=== PATIENT | male | born 1970 | race Caucasian/White ===

== ENCOUNTER 2022-09-28 10:49 | Inpatient (IN) | payer BC ==
--- OUTSIDE RECORDS SUMMARY | 2022-09-28 11:06 | XMS REPORT | Continuity of Care Document ---
:1970 Author Organization [facility] t Address [address] [place] [address] Care Team Providers Name Role Phone SHARPLESS Primary Care Physician Unavailable ETTA NAVARRETE Attending Clinician Unavailable ETTA NAAVRRETE Attending Clinician Unavailable Jaydon PEÑA, Pita Silveira Attending Clinician Sujatha Lane MA Attending Clinician Unavailable Ab Pierre MA Attending Clinician Unavailable Rosie Castro MD Attending Clinician Monika Hairston MD Attending Clinician ROSIE CASTRO Attending Clinician Unavailable MONIKA HAIRSTON Attending Clinician Unavailable Valerie Caballero MD' Attending Clinician [phone] ETTA NAVARRETE Admitting Clinician Unavailable ROSIE CASTRO Admitting Clinician Unavailable Payers Payer Name Policy Type Policy Number Effective Date Expiration Date S [facility] [id number] 2014 00:00:00 PRETP OUT OF STATE [facility] [id number] - PPO - BCBS GENERIC-FIRST [id number] HEALTH - FIRST HEALTH Problems Condition Condition Condition Status Onset Resolution Last Treating Co mments Source Name Details Category Date Date Treatment Clinician Date Angina Angina Disease Active 2021-10 [facility] p[facility] [address] 00:00: Hospita 00 l Ischemic Ischemic Disease Active Metho di cardiomyop cardiomyop 9-13 st athy athy 00:00: Hospita 00 l CAD in CAD in Disease Active [facility] [place] 6-14 st artery artery 00:00: Hospita 00 l History of History of Disease Active M ethodi coronary coronary 6-14 st artery artery 00:00: Hospita stent stent 00 l placement placement Pure Pure Disease Active Methodi hyperchole hyperchole 6-[address] sterolemia sterolemia 00:00: Ho spita 00 l H/O H/O Disease Active Methodi myocardial myocardial 6-14 st infarction infarction 00:00: Ho spita of of 00 l inferior inferior wall, wall, greater greater than 8 than 8 weeks weeks Hypokalemi Hypokalemi Disease Active [facility] Center Elevated Elevated Disease Active [facility] trop[facility] Medical 00 [place] Hypomagnes Hypomagnes Disease Active C [facility] emia emia 4-13 [facility] 00:[facility]: Medical 00 [place] Leucocytos Leucocytos Disease Active [facility] is is 4-13 [facility] 00:[facility]: Medical 00 Center Elevated Elevated Disease Active [facility] procalcito procalcito 4-13 Mar[facility] kes ric ric 00:00: Medical 00 [place] 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 age-relate age-relate 00:00: Me dical d cataract d cataract 00 Ce nter of left of left eye eye Chronic Chronic Disease Active Overview: [facility] angle-clos angle-clos 7-[address] [facility] ure ure 00:00: g of this Medical glaucoma glaucoma 00 note Center might be different from the original. 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 s diabetes diabetes Medica l mellitus mellitus Center with with hyperglyce hyperglyce abelardo abelardo Pain, Pain, Diagnosis Active Common joint, joint, Spirit shoulder, shoulder, - CH I right right [facility] Subacromia Subacromia Diagnosis Active Common l bursitis l bursitis Sp lance of right of right - [facility] shoulder shoulder St joint joint [facility] Allergies, Adverse Reactions, Alerts Allergy Allergy Status Severity Reaction(s) Onset Inactive Treating Comm ents Source Name Type Date Date Clinician NO KNOWN Allergy Active [facility] ALLERGIE S Family History Family Member Diagnosis Comments Start Date Stop Date Source Natural father Heart attack [facility] Natural father Heart failure [facility] Social History Social Habit Start Date Stop Date Quantity Comments Source History of tobacco Cigar Smoker Meth odist use Hospital History [facility] Transport Non-Med Medical Center Alcohol intake 2022-07-11 2022-07-11 Ex-drinker Yarsani 00:00:00 00:00:00 (finding) Hospital Cigarettes smoked 2022-04-11 2022-04-11 [facility] current (pack per 00:00:00 00:00:00 Hosplds hospital l day) - Reported Cigarette 2022-04-11 2022-04-11 Yarsani pack-years 00:00:00 00:00:00 Hospital History [facility] 2022-02-08 2022-02-[address] [facility] Transport Med 00:00:00 00:00:[address] History [facility] 2022-02-08 2022-02-[address] [facility] Housing Unable to 00:00:00 00:00:00 Medical Center Pay History [facility] 2022-02-08 2022-02-[address] [facility] Housing Places 00:00:00 00:00:00 Medical Ce nter Lived History [facility] 2022-02-08 2022-02-[address] [facility] Housing Homeless 00:00:00 00:00:00 Medical Center Last Year Tobacco use and 2015-05-12 2015-05-[address] [facility] exposure 00:00:00 00:00:00 Medical Center Sex Assigned At [address] [facility] 00:00:00 00:00:00 Medical Center Smoking Status Start Date Stop Date Source Ex-smoker 2022-04-11 00:00:00 2022-04-11 00:00:00 [facility] Medications Ordered Filled Start Stop Current Ordering Indication Dosage Frequency Signature Comments Components Source Medication Medication Date Date Medication? Clinician (SIG) Name Name spironolact 2021-10- No 25mg QD Take 1 Met hodi one 11-26-29 tablet (25 st (ALDACTONE) 10:37: 00:00 mg total) Hospita 25 MG 05 :00 by mouth l tablet daily. sacubitril/ 2021-10 Yes Take by Met hodi valsartan 11-[address] (ENTRESTO 09:49: Hospita ORAL) 08 l pioglitazon 2021-10 Yes 15mg QD Take 1 Meth stewart e (ACTOS) 0-03 tablet (15 st 15 MG 00:00: mg total) Hospita tablet 00 by mouth l daily. niacin Yes 500mg QD Take 1 [facility]i (NIASPAN) 9-[address] 500 MG CR 00:00: (500 mg Hospi ta tablet 00 total) by l mouth nightly. brimonidine Yes INSTILL 1 M ethodi (ALPHAGAN) 9-[address] 0.2 % 00:00: EACH EYE Hospita ophthalmic 00 THREE l solution TIMES DAILY atorvastati Yes 40mg QD Take 40 mg Methodi n (LIPITOR) 6-[address] 40 mg 00:00: daily. Hospita tablet 00 l furosemide Yes 40mg QD Take 1 Metho di (LASIX) 40 - tablet (40 st mg tablet 00:00: mg total) Hos ernesto 00 by mouth l daily. lisinopriL 2021- No 5mg Take 1 Meth stewart (PRINIVIL) 04-04- tablet (5 st 5 mg tablet 00:00: 00:00 mg total) Hospita 00 :00 by mouth l as needed. Farxiga 10 2021- No 10mg QD Take 10 mg Methodi mg tablet 03-20 09-[address] 00:00: 00:00 daily. Hospita 00 :00 l clopidogreL 2022- No 75mg QD Take 75 mg Methodi (PLAVIX) 75 4-16 04-[address] mg tablet 00:00: 04:59 daily. Hospi ta 00 :00 l aspirin 81 2022- No 81mg QD Take [address] MG chewable 4-16 04-16 tablet (81 L ukes tablet 00:00: 23:59 mg total) Medic al 00 :00 by mouth Center daily. clopidogreL 2022- No 75mg QD Take [address] (PLAVIX) 75 4-16 04-16 tablet (75 L ukes mg tablet 00:00: 23:59 mg total) Me dical 00 :00 by mouth Center daily. brimonidine Yes 1[drp] Q.5D [address] -timoloL 4-15 (two) Lukes (COMBIGAN) 15:45: times Medica l 0.2-0.5 % 51 daily. Center ophthalmic solution metFORMIN 2021- No 500mg Take [address] (GLUCOPHAGE 4-15 04-15 mg by [facility]ukes ) 500 MG 14:21: 00:00 mouth 2 Medic al tablet 15 :00 (two) Center times daily with breakfast and dinner. ibuprofen 2021- No 200mg Take [address] (ADVIL,MOTR 4-15 04-15 mg by Lukes IN) 200 MG 14:19: 00:00 mouth Medic al tablet 10 :00 every 6 Center (six) hours as needed for Pain. carvediloL Yes 12.5mg Q.5D Take 1 Met hodi (COREG) 4-[address] 12.5 MG 00:00: (12.5 mg Hospit a tablet 00 total) by l mouth 2 (two) times a day with meals. metFORMIN 0 Yes 1000mg Take [address] (GLUCOPHAGE 4-15 tablet [facility]ukes ) 1000 MG 00:00: (1,000 mg Med ical tablet 00 total) by Center mouth 2 (two) times daily with breakfast and dinner. atorvastati 2022- No 40mg QD Take [address] n (LIPITOR) 4-15 04-15 tablet (40 L ukes 40 MG 00:00: 23:59 mg total) Medica l tablet 00 :00 by mouth Center nightly. carvediloL 2022- No 12.5mg Q.5D Take [address] (COREG) 4-15 04-15 tablet Lukes 12.5 MG 00:00: 23:59 (12.5 mg Medic al tablet 00 :00 total) by Center mouth 2 (two) times daily. furosemide 2022- No 40mg Take [address] (LASIX) 40 4-15 04-15 tablet (40 Marilu kes MG tablet 00:00: 23:59 mg total) Me dical 00 :00 by mouth 2 Center (two) times daily. glipiZIDE 2022- No 5mg Take 1 [facility]I S t (GLUCOTROL) 4-15 04-15 tablet (5 Marilu kes 5 MG tablet 00:00: 23:59 mg total) Medical 00 :00 by mouth 2 Center (two) times daily before meals. lisinopriL 2022- No 5mg QD Take [address] (PRINIVIL,Z 4-15 -15 tablet (5 Marilu kes ESTRIL) 5 00:00: 23:59 mg total) Me dical MG tablet 00 :00 by mouth Center daily. Ibuprofen Ibuprofen Yes Marty 1 tablet Common Rodriguez with food Spirit or milk as - CHI needed [facility] Vital Signs Vital Name Observation Time Observation Value Comments Source HEIGHT 2020-10-12 13:29:00 165.1 cm WEIGHT 2020-10-12 13:29:00 63.504 kg HEIGHT 2022-02-08 05:00:00 167.6 cm WEIGHT 2022-02-08 05:00:00 67.178 kg HEIGHT 2022-02-08 05:00:00 167.6 cm WEIGHT 2022-02-08 05:00:00 67.178 kg HEIGHT 2022-02-08 05:00:00 167.6 cm WEIGHT 2022-02-08 05:00:00 67.178 kg HEIGHT 2020-10-12 13:29:00 165.1 cm WEIGHT 2020-10-12 13:29:00 63.504 kg Systolic blood 2022-09-26 15:49:00 123 mm[Hg] Method ist Hospital pressure Diastolic blood 2022-09-26 15:49:00 75 mm[Hg] [facility] Hospital pressure Heart rate 2022-09-26 15:49:00 98 /min [facility] Body height 2022-09-26 15:49:00 165.1 cm [facility] Body weight 2022-09-26 15:49:00 70.308 kg [facility] BMI 2022-09-26 15:49:00 25.79 kg/m2 [facility] Systolic blood 2022-02-10 12:00:00 127 mm[Hg] [facility] Diastolic blood 2022-02-10 12:00:00 79 mm[Hg] [facility] Heart rate 2022-02-10 12:00:00 85 /min [facility] Body temperature 2022-02-10 12:00:00 36.39 Rachell [facility] Respiratory rate 2022-02-10 12:00:00 18 /min [facility] Oxygen saturation in 2022-02-10 12:00:00 96 /min [facility] Arterial blood by Medical Ce nter Pulse oximetry Body height 2022-02-08 05:00:00 167.6 cm [facility] Body weight 2022-02-08 05:00:00 67.178 kg [facility] BMI 2022-02-08 05:00:00 23.90 kg/m2 [facility] Procedures Procedure Date / Time Performing Clinician Source Performed TTE COMPLETE, WO 2022-09-15 15:58:37 Pita Interiano H ospital CONTRAST, W DOPPLER ([id number]) TTE COMPLETE, W 2022-04-21 15:29:52 Pita Interiano Ho spital CONTRAST, W DOPPLER ([id number]) ECG 12-LEAD 2022-04-11 14:47:29 Pita Interiano spital POCT-GLUCOSE METER 2022-02-10 11:18:00 [facility] POCT-GLUCOSE METER 2022-02-10 06:15:00 Yovanny [facility] BASIC METABOLIC PANEL 2022-02-10 04:30:00 Yovanny [facility] CBC W/PLT COUNT & AUTO 2022-02-10 04:30:00 [facility] MAGNESIUM 2022-02-10 04:30:00 [facility] CBC W/PLT COUNT & AUTO 2022-02-10 04:30:00 [facility] POCT-GLUCOSE METER 2022-02-10 00:23:00 [facility] POCT-GLUCOSE METER 2022-02-09 20:26:00 [facility] POCT-GLUCOSE METER 2022-02-09 16:29:00 [facility] CATHETERIZATION, HEART, 2022-02-09 11:47:00 Valerie Caballero [facility] [place] POCT-GLUCOSE METER 2022-02-09 06:55:00 [facility] TSH/FREE T4 IF INDICATED 2022-02-09 05:26:00 Rosie Castro ru [facility] BASIC METABOLIC PANEL 2022-02-09 05:26:00 [facility] CBC W/PLT COUNT & AUTO 2022-02-09 05:26:00 [facility] HEPATIC FUNCTION PANEL 2022-02-09 05:26:00 [facility] MAGNESIUM 2022-02-09 05:26:00 [facility] CBC W/PLT COUNT & AUTO 2022-02-09 05:26:00 [facility] POCT-GLUCOSE METER 2022-02-08 20:28:00 [facility] POCT-GLUCOSE METER 2022-02-08 16:23:00 [facility] TROPONIN I 2022-02-08 13:06:00 Rosie Castroircaterina [facility] POCT-GLUCOSE METER 2022-02-08 11:43:00 [facility] C. DIFFICILE GDH TOXIN 2022-02-08 11:04:00 Hairston, Monika [facility] GI PATHOGEN PROFILE BY 2022-02-08 11:04:00 [facility] W/ REFLEX 2022-02-08 11:04:00 Monika Hairston [facility] URINE CULTURE Center 2D ECHO W/ DOPPLER 2022-02-08 09:13:40 Monika Hairston [facility] (CW/PW/COLOR) [place] ECG 12-LEAD 2022-02-08 06:35:27 Unknown, Hl7 Doctor [facility] XR CHEST 1 VIEW PORTABLE 2022-02-08 06:24:00 [facility] BLOOD CULTURE 2022-02-08 05:37:00 Mery [facility] COMPREHENSIVE METABOLIC 2022-02-08 05:37:00 Mery [facility] PANEL Center HEMOGLOBIN A1C 2022-02-08 05:37:00 Bryce [facility] PROTHROMBIN TIME/INR 2022-02-08 05:37:00 [facility] LIPID PANEL 2022-02-08 05:37:00 Mery [facility] MAGNESIUM 2022-02-08 05:37:00 Bryce [facility] PHOSPHORUS 2022-02-08 05:37:00 [facility] TROPONIN I 2022-02-08 05:37:00 Bryce [facility] CBC W/PLT COUNT & AUTO 2022-02-08 05:37:00 Bryce [facility] PROCALCITONIN 2022-02-08 05:37:00 Bryce [facility] LACTIC ACID, VENOUS 2022-02-08 05:37:00 [facility] % SAT. 2022-02-08 05:37:00 [facility] FERRITIN 2022-02-08 05:37:00 [facility] B-TYPE NATRIURETIC 2022-02-08 05:37:00 [facility] FACTOR (BNP) Center CBC W/PLT COUNT & AUTO 2022-02-08 05:37:00 [facility] DIFFERENTIAL Center (MANUAL DIFFERENTIAL) 2022-02-08 05:37:00 [facility] POCT-GLUCOSE METER 2022-02-08 05:26:00 [facility] - 2022-02-08 00:00:00 Provider, Slava [facility] SCAN Scanning Center EKG-SCANNED 2022-02-08 00:00:00 Provider, Slava [facility] Medical Scanning Center Plan of Care Planned Activity Planned Date Details Comments Source Future Scheduled 2025-02-08 Lipid panel [facility] s Test 00:00:00 (procedure) [code = Medical Center 00331586] Future Scheduled 2023-02-08 Tobacco Cessation [facility] Test 00:00:00 Counseling and Medical Cente r Screening (12+) [code = Tobacco Cessation Counseling and Screening (12+)] Future Scheduled 2022-09-27 HEPATITIS B VACCINES [facility] Test 08:29:57 (1 of 3 - 3-dose series) [code = HEPATITIS B VACCINES (1 of 3 - 3-dose series)] Future Scheduled 2022-09-27 Pneumococcal Vaccine: [facility] Test 08:29:57 Pediatrics (0 to 5 Years) and At-Risk Patients (6 to 64 Years) (1 - PCV) [code = Pneumococcal Vaccine: Pediatrics (0 to 5 Years) and At-Risk Patients (6 to 64 Years) (1 - PCV)] Future Scheduled 2022-09-27 Hepatitis C screening [facility] Test 08:29:57 (procedure) [code = 725404609] Future Scheduled 2022-09-27 COLONOSCOPY SCREENING [facility] Test 08:29:57 [code = COLONOSCOPY SCREENING] Future Scheduled 2022-09-27 SHINGLES VACCINES (1 [facility] Test 08:29:57 of 2) [code = SHINGLES VACCINES (1 of 2)] Future Scheduled 2022-09-27 COVID-19 VACCINE (3 - [facility] Test 08:29:57 Booster for Pfizer series) [code = COVID-19 VACCINE (3 - Booster for Pfizer series)] Future Scheduled 2022-09-27 INFLUENZA VACCINE [facility] Test 08:29:57 [code = INFLUENZA VACCINE] Future Scheduled 2022-06-29 INFLUENZA VACCINE (#1[facility] 00:[facility]00 [code = INFLUENZA Medical Ce nter VACCINE (#1)] Future Scheduled 2022-05-[address] [facility] Test 00:00:00 measurement Medical Center (procedure) [code = 89331352] Future Scheduled 2021-07-18 COVID-19 VACCINE (3 - [facility] Test 00:00:00 Booster for Pfizer Medical C enter series) [code = COVID-19 VACCINE (3 - Booster for Pfizer series)] Future Scheduled 2018 SHINGLES VACCINES ([address] [facility] Test 00:00:00 of 2) [code = SHINGLES Medic al Center VACCINES (1 of 2)] Future Scheduled 1987 DTAP/TDAP/TD VACCINES [facility] Test 00:00:00 (1 - Tdap) [code = Medical C enter DTAP/TDAP/TD VACCINES (1 - Tdap)] Future Scheduled 1986 HEPATITIS C SCREENING [facility] Test 00:00:00 [code = HEPATITIS C Medical Center SCREENING] Future Scheduled [address] DIABETIC EYE EXAM [facility] Test 00:00:00 [code = DIABETIC EYE Medical Center EXAM] Future Scheduled [address] [facility] Test 00:00:00 examination Medical Center (regime/therapy) [code = 017735107] Future Scheduled 1978 Urine screening for [facility] Test 00:00:00 protein (procedure) Medical Center [code = 989316130] Future Scheduled [address] [facility] Test 00:00:00 0-64 YRS (1 - PCV) Medical C enter [code = PNEUMOCOCCAL VACCINE 0-64 YRS (1 - PCV)] Future Scheduled [address] [facility] Test 00:00:00 (combo) [code = CT Medical C enter Colonography (combo)] Future Scheduled [address] [facility] Test 00:00:00 malignant neoplasm of Medica l Center colon (procedure) [code = 992014146] Future Scheduled [address] [facility] Test 00:00:00 malignant neoplasm of Medica l Center colon (procedure) [code = 482577417] Future Scheduled [address] Test 00:00:00 malignant neoplasm of Medica l Center colon (procedure) [code = 101378173] Future Scheduled [address] [facility] Test 00:00:00 malignant neoplasm of Medica l Center colon (procedure) [code = 701820642] Future Scheduled 1970 Sigmoidoscopy [code = [facility] Test 00:00:00 Sigmoidoscopy] Medical Cente r Encounters Start End Encounter Admission Attending Care Care Encounter Source Date/Time Date/Time Type Type Clinicians Facility Department ID 2021-11-23 Outpatient [facility] [id number] Common 10:59:54 [id number] [facility] 2021-08-04 Outpatient JUAN [facility] Surgery [id number] [facility] 11:20:52 ETTA 2023-01-15 2023-01-15 Outpatient ROSALBA HENRY [facility] [id number] [facility] 00:00:00 00:00:00 ETTA Abraham Medicin shazia 2022-09-26 2022-09-26 Office Interiano, 1.2.840.1 [id number] Methodi 10:00:00 13:47:03 Visit Pita Silveira [address]11.1.[address] 3.430.2.7 Hospit a .3.263071 l .8 2022-09-26 2022-09-26 Travel 1.2.840.1 1.2.765.131 [id number] Methodi 00:00:00 00:00:[address] 3.430.2.7 0.2.7.3.698 Ho spita .3.734401 084.8 l .8 2022-09-26 2022-09-26 Outpatient [facility] [id number] [place] 00:00:00 00:00:00 PITA [address] 2022-09-15 2022-09-15 Travel 1.2.840.1 1.2.271.609 [id number] Methodi 00:00:00 00:00:[address] 3.430.2.7 0.2.7.3.698 Ho spita .3.842106 084.8 l .8 2022-09-15 2022-09-15 Outpatient [facility] [id number] [place] 00:00:00 00:00:[address] PITA [address] 2022-09-12 2022-09-12 Telephone Ariana, 1.2.840.1 [id number] Methodi 00:00:00 00:00:[address] 3.430.2.7 Hospit a .3.903399 l .8 2022-08-02 2022-08-02 Orders Ab Pierre 1.2.840.1 [id number] Methodi 00:00:00 00:00:[address] 3.430.2.7 Hospit a .3.130990 l .8 2022-07-13 2022-07-13 Outpatient JOHN NAVARRETE [facility] [id number] [facility] 07:40:38 09:49:03 ETTA Abraham Medicin shazia 2022-07-11 2022-07-11 Office Jaydon, 1.2.840.1 [id number] Methodi 10:00:00 10:10:00 Visit Pita Silveira 57423.1.[address] 3.430.2.7 Hospit a .3.461550 l .8 2022-07-11 2022-07-11 Travel 1.2.840.1 1.2.303.508 [id number] Methodi 00:00:00 00:00:[address] 3.430.2.7 0.2.7.3.698 Ho spita .3.142149 084.8 l .8 2022-07-11 2022-07-11 Outpatient [facility] [id number] [place] 00:00:00 00:00:00 PITA [address] 2022-04-21 2022-04-21 Travel 1.2.840.1 1.2.329.299 [id number] Methodi 00:00:00 00:00:[address] 3.430.2.7 0.2.7.3.698 Ho spita .3.765002 084.8 l .8 2022-04-21 2022-04-21 Outpatient [facility] [id number] [place] 00:00:00 00:00:00 PITA [address] 2022-04-11 2022-04-11 Office Interiano, 1.2.840.1 [id number] Methodi 10:15:00 14:56:42 Visit Pita Silveira 30272.1.[address] 3.430.2.7 Hospit a .3.019534 l .8 2022-04-11 2022-04-11 Travel 1.2.840.1 1.2.473.372 [id number] Methodi 00:00:00 00:00:[address] 3.430.2.7 0.2.7.3.698 Ho spita .3.622510 084.8 l .8 2022-04-11 2022-04-11 Outpatient [facility] [id number] [place] 00:00:00 00:00:00 PITA [address] 2022-02-28 2022-02-28 Travel 1.2.840.1 1.2.173.876 [id number] Methodi 00:00:00 00:00:[address] 3.430.2.7 0.2.7.3.698 Ho spita .3.047455 084.8 l .8 2022-02-08 2022-02-10 [facility] Rosie Castro [facility] [id number] 04:45:00 15:44:00 Encounter Yovanny Monika [facility] 2022-02-08 2022-02-10 Inpatient ER HAIRSTON, [facility] Cardiology [id number] [facility] 04:45:00 15:44:00 [place] 2022-02-09 2022-02-09 Surgery [place], [facility] [id number] 12:00:00 13:02:00 [facility] [place] 2022-02-08 2022-02-08 Orders [facility] [id number] 00:00:00 00:00:00 Only [facility] 2022-02-08 2022-02-08 Travel [facility] [id number] [facility] 00:00:00 00:00:00 [facility] 2022-02-07 2022-02-07 Documentat Mery [facility] [id number] 00:00:00 00:00:00 ion [facility] 2022-01-12 2022-01-12 Outpatient JOHN NAVARRETE [facility] [id number] [facility] 09:03:23 10:36:32 ETTA mccray of Medicin e 2021-07-14 2021-07-14 Outpatient JOHN NAVARRETE Sanchez [id number] [facility] 08:05:04 09:20:35 ETTA mccray of Medicin e 2020-10-12 2020-10-12 Outpatient [facility] [id number] [facility] 00:00:00 00:00:00 2020-03-15 2020-03-15 Outpatient [facility] [id number] Common 08:30:00 08:30:00 t [facility] 2019-11-24 2019-11-24 Outpatient Taylor Vazquezt [id number] Common 09:12:00 09:12:00 t Bone Bone and Spiri t and Joint Joint - [facility] 2019-11-10 2019-11-10 Outpatient Taylor Vazquezt 28 [id number] Common 09:00:00 09:00:00 t Bone Bone and Spiri t and Joint Joint - [facility] Results Test Description Test Time Test Comments Results Result Comments Source ECG 12 lead 2022-04-11 20:48:01 Test Item Value Reference Range Interpretation Comme nts Ventricular rate (test code = 253) Atrial rate (test code = 255) [place] interval (test code = 266) QRSD interval (test code = 260) QT interval (test code = 264) QTC interval (test code = 265) P axis 1 (test code = 267) QRS axis 1 (test code = 268) T wave axis (test code = 270) EKG impression (test code = 273) Normal sinus rhythm-Left axis deviation-Cannot rule out Inferior infarct , age undetermined-Anteroseptal infarct , age undetermined-ST & T wave abnormality, consider lateral ischemia-Abnormal ECG-No previous ECGs available- [facility] [id number] 13:35:08 Test Item Value Reference Range Interpretation Comments CULTURE A From Anaerobic (BEAKER) (test Bottle Only code = 1095) Diphtheroid GRAM STAIN From anaerobic RESULT (BEAKER) bottle only: gram (test code = positive 1123) coccobacilli BLOOD [id number] 10:00:55 Test Item Value Reference Range Interpretation Comments CULTURE (BEAKER) (test No growth in 5 days code = 1095) POC-Glucose [id number] 11:29:37 Test Item Value Reference Range Interpretation Comments POC-Glucose Meter (test 190 mg/dL 70-110 H : TE STED AT [facility] code = 1538) [address] [place] [address]: Canvas Cutter Machine/Techni cristina ID = [id number] for Mckeon, Cecelia erickson Lab Interpretation (test Abnormal code = 03228-8) [facility] [id number] 11:29:37 Test Item Value Reference Range Interpretation Comments POC-GLUCOSE METER 190 mg/dL 70-110 H : TESTED A T [address] [address]17 (BEAKER) (test code [address], = 1538) [facility] 77 [address]: Canvas Cutter Machine/Techni cristina ID = [id number] for Sonia Vaughan POCT-GLUCOSE [id number] 06:28:06 Test Item Value Reference Range Interpretation Comments POC-GLUCOSE METER 168 mg/dL 70-110 H : TESTED A T [address] (BEAKER) (test code [address], = 1538) [facility] 77 478: Canvas Cutter Machine/Techni cristina ID = [id number] for Sherin Espinal BASIC METABOLIC [id number] 06:03:57 Test Item Value Reference Range Interpretation Comments SODIUM (BEAKER) 138 meq/L 135-148 (test code = 381) POTASSIUM (BEAKER) 3.5 meq/L 3.6-5.5 L (test code = 379) CHLORIDE (BEAKER) 105 meq/L 98-106 (test code = 382) CO2 (BEAKER) (test 21 meq/L 20-29 code = 355) BLOOD UREA NITROGEN 20 mg/dL 10-26 (BEAKER) (test code = 354) CREATININE (BEAKER) 1.06 mg/dL 0.50-1.20 (test code = 358) GLUCOSE RANDOM 156 mg/dL 70-110 H (BEAKER) (test code = 652) CALCIUM (BEAKER) 7.9 mg/dL 8.5-10.5 L (test code = 697) EGFR (BEAKER) (test 73 mL/min/1.73 ESTIMA TANIA GFR IS code = 1092) sq m NOT ACCURATE CREATININE CLEARANCE IN PREDICTING GLOMERULAR FILTRATION RATE . ESTIMATED GFR I S NOT APPLICABLE FOR DIALYSIS PATIEN TS. Canvas Cutter Machine ID - LITOOperator ID - LITOOperator ID - LITOOperator ID - LITOOperator ID - LITOOperator ID - LITOOperator ID - LITOOperator ID - LITOOperator ID - LITOOperator ID - [id number] 06:00:25 Test Item Value Reference Range Interpretation Comments MAGNESIUM (BEAKER) (test code = 2.0 mg/dL 1.5-3.0 627) Canvas Cutter Machine ID - LITOOperator ID - LITOOperator ID - LITOOperator ID - LITOCBC W/PLT COUNT & AUTO [id number] 05:48:50 Test Item Value Reference Range Interpretation Comments WHITE BLOOD CELL COUNT (BEAKER) 12.4 K/ L 4.0-10.0 H (test code = 775) RED BLOOD CELL COUNT (BEAKER) 3.99 M/ L 4.20-5.80 L (test code = 761) HEMOGLOBIN (BEAKER) (test code = 10.8 GM/DL 13.0-16.8 L 410) HEMATOCRIT (BEAKER) (test code = 31.6 % 36.0-50.0 L 411) MEAN CORPUSCULAR VOLUME (BEAKER) 79.2 fL 82.0-99.0 L (test code = 753) MEAN CORPUSCULAR HEMOGLOBIN 27.1 pg 27.0-33.0 (BEAKER) (test code = 751) MEAN CORPUSCULAR HEMOGLOBIN CONC 34.2 GM/DL 32.0-36.0 (BEAKER) (test code = 752) RED CELL DISTRIBUTION WIDTH 14.6 % 12.0-15.0 (BEAKER) (test code = 412) PLATELET COUNT (BEAKER) (test 201 K/CU MM 150-430 code = 756) MEAN PLATELET VOLUME (BEAKER) 12.1 fL 6.0-11.5 H (test code = 754) NUCLEATED RED BLOOD CELLS 0 /100 WBC 0-0 (BEAKER) (test code = 413) NEUTROPHILS RELATIVE PERCENT 70 % (BEAKER) (test code = 429) LYMPHOCYTES RELATIVE PERCENT 16 % (BEAKER) (test code = 430) MONOCYTES RELATIVE PERCENT 10 % (BEAKER) (test code = 431) EOSINOPHILS RELATIVE PERCENT 2 % (BEAKER) (test code = 432) BASOPHILS RELATIVE PERCENT 1 % (BEAKER) (test code = 437) NEUTROPHILS ABSOLUTE COUNT 8.61 K/ L 1.80-8.00 H (BEAKER) (test code = 670) LYMPHOCYTES ABSOLUTE COUNT 1.94 K/ L 1.48-4.50 (BEAKER) (test code = 414) MONOCYTES ABSOLUTE COUNT (BEAKER) 1.21 K/ L 0.00-1.30 (test code = 415) EOSINOPHILS ABSOLUTE COUNT 0.29 K/ L 0.00-0.50 (BEAKER) (test code = 416) BASOPHILS ABSOLUTE COUNT (BEAKER) 0.07 K/ L 0.00-0.20 (test code = 417) IMMATURE GRANULOCYTES-RELATIVE 2 % 0-0 H PERCENT (BEAKER) (test code = 2801) POCT-GLUCOSE [id number] 00:34:49 Test Item Value Reference Range Interpretation Comments POC-GLUCOSE METER 238 mg/dL 70-110 H : TESTED A T [address] (BEAKER) (test code [address], = 1538) [place] [address]: Canvas Cutter Machine/Techni cristina ID = [id number] for Katherine Alexis POCT-GLUCOSE [id number] 20:38:11 Test Item Value Reference Range Interpretation Comments POC-GLUCOSE METER 261 mg/dL 70-110 H : TESTED A T [address] (BEAKER) (test code [facility] [address], = 1538) [place] [address]: Canvas Cutter Machine/Techni cristina ID = [id number] for Sherin Espinal POCT-GLUCOSE [id number] 18:58:16 Test Item Value Reference Range Interpretation Comments POC-GLUCOSE METER 138 mg/dL 70-110 H : TESTED A T [address] (BEAKER) (test code [address], = 1538) [place] [address]: Canvas Cutter Machine/Techni cristina ID = [id number] for Faraz Chantell POCT-GLUCOSE [id number] 07:07:59 Test Item Value Reference Range Interpretation Comments POC-GLUCOSE METER 165 mg/dL 70-110 H : TESTED A T [address] (BEAKER) ([facility] [address] [facility], = 1538) [place] [address]: Canvas Cutter Machine/Techni cristina ID = [id number] for Brow n, Sherin TSH/FREE T4 IF [id number] 06:26:31 Test Item Value Reference Range Interpretation Comments THYROID STIMULATING HORMONE 1.460 uIU/mL 0.350-5.500 (BEAKER) (test code = 772) Canvas Cutter Machine ID - [id number] METABOLIC [id number] 06:13:13 Test Item Value Reference Range Interpretation Comments SODIUM (BEAKER) 136 meq/L 135-148 (test code = 381) POTASSIUM (BEAKER) 3.2 meq/L 3.6-5.5 L (test code = 379) CHLORIDE (BEAKER) 104 meq/L 98-106 (test code = 382) CO2 (BEAKER) (test 19 meq/L 20-29 L code = 355) BLOOD UREA NITROGEN 29 mg/dL 10-26 H (BEAKER) (test code = 354) CREATININE (BEAKER) 1.06 mg/dL 0.50-1.20 (test code = 358) GLUCOSE RANDOM 179 mg/dL 70-110 H (BEAKER) (test code = 652) CALCIUM (BEAKER) 7.4 mg/dL 8.5-10.5 L (test code = 697) EGFR (BEAKER) (test 73 mL/min/1.73 ESTIMA TANIA GFR IS code = 1092) sq m NOT ACCURATE CREATININE CLEARANCE IN PREDICTING GLOMERULAR FILTRATION RATE . ESTIMATED GFR I S NOT APPLICABLE FOR DIALYSIS PATIEN TS. Canvas Cutter Machine ID - [id number] ID - [id number] ID - [id number] ID - phtq42Eznvmdcy ID - tkgx41Ogewpbrc ID - [id number] ID - zcis30Yqckqerv ID - cjau58Kertowjg ID - xmcm40Rfjzfwdv ID - [id number] FUNCTION [id number] 06:13:08 Test Item Value Reference Range Interpretation Comments TOTAL PROTEIN (BEAKER) (test code = 5.1 gm/dL 6.0-8.5 L 770) ALBUMIN (BEAKER) (test code = 1145) 2.4 g/dL 3.5-5.0 L BILIRUBIN TOTAL (BEAKER) (test code 0.6 mg/dL 0.1-1.2 = 377) BILIRUBIN DIRECT (BEAKER) (test 0.4 mg/dL 0.0-0.4 code = 706) ALKALINE PHOSPHATASE (BEAKER) (test 231 U/L 30-115 H code = 346) AST (SGOT) (BEAKER) (test code = 16 U/L 5-40 353) ALT (SGPT) (BEAKER) (test code = 22 U/L 5-50 347) Canvas Cutter Machine ID - [id number] ID - uchs25Trpycflk ID - nrrs82Ogykhncr ID - mvwx52Dgaftxdj ID - npuj95Pzfbsacl ID - tlst60Ueozpzsz ID - ufhy49VVT W/PLT COUNT & AUTO [id number] 06:11:44 Test Item Value Reference Range Interpretation Comments WHITE BLOOD CELL COUNT (BEAKER) 16.1 K/ L 4.0-10.0 H (test code = 775) RED BLOOD CELL COUNT (BEAKER) 3.85 M/ L 4.20-5.80 L (test code = 761) HEMOGLOBIN (BEAKER) (test code = 10.5 GM/DL 13.0-16.8 L 410) HEMATOCRIT (BEAKER) (test code = 29.7 % 36.0-50.0 L 411) MEAN CORPUSCULAR VOLUME (BEAKER) 77.1 fL 82.0-99.0 L (test code = 753) MEAN CORPUSCULAR HEMOGLOBIN 27.3 pg 27.0-33.0 (BEAKER) (test code = 751) MEAN CORPUSCULAR HEMOGLOBIN CONC 35.4 GM/DL 32.0-36.0 (BEAKER) (test code = 752) RED CELL DISTRIBUTION WIDTH 14.3 % 12.0-15.0 (BEAKER) (test code = 412) PLATELET COUNT (BEAKER) (test 160 K/CU MM 150-430 code = 756) MEAN PLATELET VOLUME (BEAKER) 12.3 fL 6.0-11.5 H (test code = 754) NUCLEATED RED BLOOD CELLS 0 /100 WBC 0-0 (BEAKER) (test code = 413) NEUTROPHILS RELATIVE PERCENT 82 % (BEAKER) (test code = 429) LYMPHOCYTES RELATIVE PERCENT 9 % (BEAKER) (test code = 430) MONOCYTES RELATIVE PERCENT 6 % (BEAKER) (test code = 431) EOSINOPHILS RELATIVE PERCENT 2 % (BEAKER) (test code = 432) BASOPHILS RELATIVE PERCENT 0 % (BEAKER) (test code = 437) NEUTROPHILS ABSOLUTE COUNT 13.18 K/ L 1.80-8.00 H (BEAKER) (test code = 670) LYMPHOCYTES ABSOLUTE COUNT 1.50 K/ L 1.48-4.50 (BEAKER) (test code = 414) MONOCYTES ABSOLUTE COUNT (BEAKER) 0.95 K/ L 0.00-1.30 (test code = 415) EOSINOPHILS ABSOLUTE COUNT 0.29 K/ L 0.00-0.50 (BEAKER) (test code = 416) BASOPHILS ABSOLUTE COUNT (BEAKER) 0.04 K/ L 0.00-0.20 (test code = 417) IMMATURE GRANULOCYTES-RELATIVE 1 % 0-0 H PERCENT (BEAKER) (test code = 2801) [id number] 06:05:35 Test Item Value Reference Range Interpretation Comments MAGNESIUM (BEAKER) (test code = 2.1 mg/dL 1.5-3.0 627) Canvas Cutter Machine ID - [id number] ID - [id number] ID - [id number] ID - [id number] POCT-GLUCOSE [id number] 20:52:17 Test Item Value Reference Range Interpretation Comments POC-GLUCOSE METER 103 mg/dL 70-110 : TESTED A T [facility] [address] (BEAKER) (test code [facility] [address], = 1538) [facility] [place] [address]: Canvas Cutter Machine/Techni cristina ID = [id number] for Sherin Espinal GI Pathogen Profile by PCR-ID [id number] 17:47:01 Test Item Value Reference Range Interpretation Comments CAMPYLOBACTER PCR (test Not detected Not detected code = 60838-2) PLESIOMONAS SHIGELLOIDES Not detected Not detected (PCR) (test code = 75738-2) SALMONELLA (PCR) (test Not detected Not detected code = 65082-6) YERSINIA ENTEROCOLITICA Not detected Not detected (PCR) (test code = 08052-7) VIBRIO CHOLERAE (PCR) Not detected Not detected (test code = 46138-3) ENTEROAGGREGATIVE E. Not detected Not detected COLI (EAEC) BY PCR (test code = 33590-5) ENTEROPATHOGENIC E. COLI Not detected Not detected (EPEC) BY PCR (test code = 83081-2) ENTEROTOXIGENIC E. COLI Not detected Not detected (ETEC) LT/ST BY PCR (test code = 99700-5) SHIGA-LIKE Not detected Not detected TOXIN-PRODUCING E. COLI (STEC) STX1/STX2 (test code = 83280-4) E. COLI O157 (PCR) (test code = 21495-3) SHIGELLA/ENTEROINVASIVE Not detected Not detected E. COLI (EIEC) BY PCR (test code = 87788-8) CRYPTOSPORIDIUM (PCR) Not detected Not detected (test code = 28076-8) CYCLOSPORA CAYETANENSIS Not detected Not detected (PCR) (test code = 19007-0) ENTAMOEBA HISTOLYTICA Not detected Not detected (PCR) (test code = 09766-9) GIARDIA LAMBLIA (PCR) Not detected Not detected (test code = 56885-2) ADENOVIRUS F 40/41 (PCR) Not detected Not detected (test code = 44103-3) ASTROVIRUS (PCR) (test Not detected Not detected code = 56611-1) NOROVIRUS GI/GII (PCR) Not detected Not detected (test code = 42563-4) ROTAVIRUS A (PCR) (test Not detected Not detected code = 59998-3) SAPOVIRUS (I, II, IV, V) Not detected Not detected BY PCR (test code = 36827-3) VIBRIO Not detected Not detected (PARAHAEMOLYTICUS, VULNIFICUS) (test code = 84515-0) GABINO (test code = GABINO) Other viruses, parasites and bacteria not targeted by this PCR panel cannot be excluded; therefore clinical correlation and follow up of serology, culture results, and other molecular studies is required. The results are not intended to be used as the sole means for clinical diagnosis or patient management decisions. This sample was tested at the [facility] Molecular Diagnostics Laboratory using the [employer] Gastrointestinal Panel. It is FDA cleared and has been verified and approved by the [facility] Molecular Diagnostics Laboratory for clinical use. This laboratory is CLIA-certified and [employer] (CAP)-accredited to perform high complexity testing. [facility] BY [id number] 17:47:01 Test Item Value Reference Range Interpretation Comments CAMPYLOBACTER (PCR) (test code = Not detected Not detected 20160502) PLESIOMONAS SHIGELLOIDES (PCR) Not detected Not detected (test code = 20160506) SALMONELLA (PCR) (test code = Not detected Not detected ) YERSINIA ENTEROCOLITICA (PCR) Not detected Not detected (test code = 20160529) VIBRIO CHOLERAE (PCR) (test code Not detected Not detected = 20160530) ENTEROAGGREGATIVE E. COLI (EAEC) Not detected Not detected BY PCR (test code = 4442242) ENTEROPATHOGENIC E. COLI (EPEC) Not detected Not detected BY PCR (test code = 7704724) ENTEROTOXIGENIC E. COLI (ETEC) Not detected Not detected LT/ST BY PCR (test code = 7702716) SHIGA-LIKE TOXIN-PRODUCING E. Not detected Not detected COLI (STEC) STX1/STX2 (test code = 1969992) E. COLI O157 (PCR) (test code = 7932176) SHIGELLA/ENTEROINVASIVE E. COLI Not detected Not detected (EIEC) BY PCR (test code = 5174241) CRYPTOSPORIDIUM (PCR) (test code Not detected Not detected = 9477530) CYCLOSPORA CAYETANENSIS (PCR) Not detected Not detected (test code = 5555371) ENTAMOEBA HISTOLYTICA (PCR) Not detected Not detected (test code = 20160629) GIARDIA LAMBLIA (PCR) (test code Not detected Not detected = 3890251) ADENOVIRUS F 40/41 (PCR) (test Not detected Not detected code = 20160701) ASTROVIRUS (PCR) (test code = Not detected Not detected 20160702) NOROVIRUS GI/GII (PCR) (test Not detected Not detected code = 7635619) ROTAVIRUS A (PCR) (test code = Not detected Not detected 20160704) SAPOVIRUS (I, II, IV, V) BY PCR Not detected Not detected (test code = 9917062) VIBRIO (PARAHAEMOLYTICUS, Not detected Not detected VULNIFICUS) (test code = 4798769) Other viruses, parasites and bacteria not targeted by this PCR panel cannot be excluded; therefore clinical correlation and follow up of serology, culture results, and other molecular studies is required. The results are not intended to be used as the sole means for clinical diagnosis or patient management decisions. This sample was tested at the [facility] Molecular Diagnostics Laboratory using the [employer] Gastrointestinal Panel. It is FDA cleared and has been verified and approved by the [facility] Molecular Diagnostics Laboratory for clinical use. This laboratory is CLIA-certified and College ofAmerican Pathologists (CAP)-accredited to perform high complexity testing.POCT-GLUCOSE [id number] 16:37:04 Test Item Value Reference Range Interpretation Comments POC-GLUCOSE METER 104 mg/dL 70-110 : TESTED A T [address] (BEAKER) (test code [address], = 1538) [place] [address]: Canvas Cutter Machine/Techni cristina ID = [id number] for Tabitha Toribio TROPONIN [id number] 13:49:07 Test Item Value Reference Range Interpretation Comments TROPONIN I (MARQUEZ) (test code = 1.43 ng/mL 0.00-0.15 [facility]) Troponin I (TnI) levels must be interpreted in the context of the presenting symptoms and the clinical findings. Elevated TnI levels indicate myocardial damage, but are not specific for ischemic heart disease. Elevated TnI levels are seen in patients with other cardiac conditions (including myocarditis and congestive heart failure), and slight TnI elevations occur in patients with other conditions, including sepsis, renal failure, acidosis, acute neurological disease, and persistent tachyarrhythmia.Canvas Cutter Machine ID - [id number] Echo W/Doppler(CW/PW/Color)2022-02-08 12:43:16Ejection [facility] MKCKESSON [facility] [id number] 12:09:27 Test Item Value Reference Range Interpretation Comments POC-GLUCOSE METER 106 mg/dL 70-110 : TESTED A T [address] (MARQUEZ) (test code [address], = 1538) [place] [address]: Canvas Cutter Machine/Techni cristina ID = [id number] for Tabitha Toribio Clostridium difficile GDH [id number] 11:58:11 Test Item Value Reference Range Interpretation Comments C. Difficle Toxin Negative Negative (test code = 8385400733) C. Difficile GDH Negative Negative No indicati on of Antigen (test code = Clostri dium 6602511291) difficile infection and n o colonization. Discontinue enteric isolati on and therapy. GABINO (test code = Testing performed GABINO) by [employer] Rapid Cassette Assay. For GDH, published sensitivity of the assay is 98.7% compared to cytotoxicity testing. For Toxin AB, published sensitivity is 87.8% and specificity 99.4% compared to cytotoxicity testing.Verificati on of kit performance was done by the [facility] Microbiology Lab prior to clinical use. Lab Interpretation Normal (test code = 16951-1) [facility] Hospital[facility]. DIFFICILE GDH [id number] 11:58:11 Test Item Value Reference Range Interpretation Comments CDT TOXIN (test code Negative Negative = 8609925041) CDT GDH ANTIGEN (test Negative Negative No ind ication of code = 6475275284) Clostridi um difficile infection and n o colonization. Discontinue ent mindy isolation and t herapy. Testing performed by [employer] Rapid Cassette Assay. For GDH, published sensitivity of the assay is 98.7% compared to cytotoxicity testing. For Toxin AB, published sensitivity is 87.8% and specificity 99.4% compared to cytotoxicity testing.Verification of kit performance was done by the [facility] MicrobiologyLab prior to clinical use.Urinalysis w/Microscopic + Reflex to [id number] 11:41:47 Test Item Value Reference Range Interpretation Comments Color, UA (test code = Yellow 5778-6) Clarity, UA (test code = Clear 5767-9) Specific [place], UA 1.015 1.001-1.035 (test code = 5811-5) pH, UA (test code = 5.0 5.0-8.0 5803-2) Protein, UA (test code = 30 mg/dL Negative A 39090-7) Glucose, UA (test code = 250 mg/dL Negative A 365) Ketones, UA (test code = Negative Negative 2514-8) Bilirubin, UA (test code Negative Negative = 24640-0) Blood, UA (test code = Large Negative A 89819-5) Nitrite, UA (test code = Negative Negative 5802-4) Leukocytes, UA (test Trace Negative A code = 5799-2) Urobilinogen, UA (test 0.2 mg/dL 0.2-1.0 code = 23351-5) Bacteria, UA (test code Few = 57034-2) RBC, UA (test code = 5-10 See_Comment [Autom ated message] 799-7) The system [employer] generated this result transmit tania reference range : /HPF. The refer ence range was not u sed to interpret th is result as normal/abnormal . WBC, UA (test code = 5-10 See_Comment [Autom ated message] 23826-7) The system [employer] generated this result transmit tania reference range : /HPF. The refer ence range was not u sed to interpret th is result as normal/abnormal . SQUAMOUS EPITHELIAL <5 See_Comment [Automa tania message] (test code = 01713-8) The sy stem which generated this result transmit tania reference range : /HPF. The refer ence range was not u sed to interpret th is result as normal/abnormal . Specimen Source (test code = 2795) Lab Interpretation (test Abnormal code = 19440-7) [facility]/ REFLEX URINE [id number] 11:41:47 Test Item Value Reference Range Interpretation Comments COLOR (BEAKER) (test code = 470) Yellow CLARITY (BEAKER) (test code = 469) Clear SPECIFIC GRAVITY UA (BEAKER) (test 1.015 1.001-1.035 code = 468) PH UA (BEAKER) (test code = 467) 5.0 5.0-8.0 PROTEIN UA (BEAKER) (test code = 30 mg/dL Negative A 464) GLUCOSE UA (BEAKER) (test code = 250 mg/dL Negative A 365) KETONES UA (BEAKER) (test code = Negative Negative 371) BILIRUBIN UA (BEAKER) (test code = Negative Negative 462) BLOOD UA (BEAKER) (test code = 461) Large Negative A NITRITE UA (BEAKER) (test code = Negative Negative 465) LEUKOCYTE ESTERASE UA (BEAKER) Trace Negative A (test code = 466) UROBILINOGEN UA (BEAKER) (test code 0.2 mg/dL 0.2-1.0 = 463) BACTERIA (BEAKER) (test code = 517) Few RBC UA-MANUAL (BEAKER) (test code = 5-10 /HPF 1659) WBC UA-MANUAL (BEAKER) (test code = 5-10 /HPF 1661) SQUAMOUS EPITHELIAL MANUAL (BEAKER) <5 /HPF (test code = 1663) SOURCE(BEAKER) (test code = 2795) [id number] 06:53:46 Test Item Value Reference Range Interpretation Comments PROCALCITONIN (BEAKER) (test code = > ng/mL <0.05 3036) SEPSIS RISK (ng/mL)Low: 0.05-0.50Intermediate: 0.51-2.00High: >=2.01RAD, CHEST, 1 VIEW, NON [id number] 06:35:00Reason for exam:->Chest pain, SOBShould this be performed at the bedside?->Yes [facility] : 1970 Sex: MFINAL REPORT EXAM/TECHNIQUE: Single view frontal radiograph of the chest. INDICATION: Chest pain, shortness of breath. COMPARISON: None. FINDINGS: Devices/Objects: None. Lungs: No focal consolidation. No pleural effusion. No pneumothorax. Heart/Mediastinum: No cardiomegaly. No interstitial thickening. Osseous: No acute osseous process. No suspicious osseous lesion. Upper abdomen: Unremarkable. Impression: No acute cardiopulmonary process. Signed: Manuel Starks [facility] Verified Date/Time: 02/08/2022 06:35:11 [id number] 06:25:41 Test Item Value Reference Range Interpretation Comments FERRITIN (BEAKER) (test code = 174.90 ng/mL 22.00-322.00 361) Canvas Cutter Machine ID - LITOCOMPREHENSIVE METABOLIC [id number] 06:24:00 Test Item Value Reference Range Interpretation Comments TOTAL PROTEIN 5.3 gm/dL 6.0-8.5 L (BEAKER) (test code = 770) ALBUMIN (BEAKER) 2.6 g/dL 3.5-5.0 L (test code = 1145) ALKALINE PHOSPHATASE 249 U/L 30-115 H (BEAKER) (test code = 346) BILIRUBIN TOTAL 1.1 mg/dL 0.1-1.2 (BEAKER) (test code = 377) SODIUM (BEAKER) (test 129 meq/L 135-148 L code = 381) POTASSIUM (BEAKER) 3.9 meq/L 3.6-5.5 (test code = 379) CHLORIDE (BEAKER) 98 meq/L 98-106 (test code = 382) CO2 (BEAKER) (test 18 meq/L 20-29 L code = 355) BLOOD UREA NITROGEN 30 mg/dL 10-26 H (BEAKER) (test code = 354) CREATININE (BEAKER) 1.44 mg/dL 0.50-1.20 H (test code = 358) GLUCOSE RANDOM 320 mg/dL 70-110 H (BEAKER) (test code = 652) CALCIUM (BEAKER) 7.2 mg/dL 8.5-10.5 L (test code = 697) AST (SGOT) (BEAKER) 35 U/L 5-40 (test code = 353) ALT (SGPT) (BEAKER) 29 U/L 5-50 (test code = 347) EGFR (BEAKER) (test 51 mL/min/1.73 ESTIMA TANIA GFR IS code = 1092) sq m NOT ACCURATE CREATININE CLEARANCE IN PREDICTING GLOMERULAR FILTRATION RATE . ESTIMATED GFR I S NOT APPLICABLE FOR DIALYSIS PATIEN TS. Canvas Cutter Machine ID - LITOOperator ID - LITOOperator ID - LITOOperator ID - LITOOperator ID - LITOOperator ID - LITOOperator ID - LITOOperator ID - LITOOperator ID - LITOOperator ID - LITOOperator ID - LITOOperator ID - LITOOperator ID - LITOOperator ID - LITOOperator ID - LITOOperator ID - LITOLIPID [id number] 06:23:35 Test Item Value Reference Range Interpretation Comments TRIGLYCERIDES (BEAKER) (test code = 167 mg/dL 540) CHOLESTEROL (BEAKER) (test code = 85 mg/dL 631) HDL CHOLESTEROL (BEAKER) (test code < mg/dL = 976) LDL CHOLESTEROL CALCULATED (BEAKER) > mg/dL (test code = 633) Triglyceride Reference Range: Low Risk <150 Borderline 150-199 High Risk 200- 499 Very High Risk >=500Cholesterol Reference Range: Low Risk <200 Borderline 200-239 High Risk >240HDL Cholesterol Reference Range: Low Risk >=60 High Risk <40LDL Cholesterol Reference Range: Optimal <100 Near Optimal 100-129 Borderline 130-159 High 160-189 Very High >=190 [employer] ID - LITOOperatorID - LITOOperator ID - [id number] 06:23:22 Test Item Value Reference Range Interpretation Comments MAGNESIUM (BEAKER) (test code = 1.7 mg/dL 1.5-3.0 627) [employer] ID - LITOOperator ID - LITOOperator ID - LITOOperator ID - LITOIRON, TIBC, % SAT. (WITHOUT FERRITIN)2022-02-08 06:22:39 Test Item Value Reference Range Interpretation Comments IRON (BEAKER) (test code = 547) 12.0 ug/dL 45.0-170.0 L TOTAL IRON BINDING CAPACITY 206 ug/dL 250-550 L (BEAKER) (test code = 769) IRON % SATURATION (2) (BEAKER) 6 % 20-55 L (test code = 2590) [employer] ID - LITOOperator ID - [id number] 06:19:55 Test Item Value Reference Range Interpretation Comments PHOSPHORUS (BEAKER) (test code = 2.9 mg/dL 2.5-4.5 604) [employer] ID - LITOCBC W/PLT COUNT & AUTO [id number] 06:17:13 Test Item Value Reference Range Interpretation Comments WHITE BLOOD CELL COUNT (BEAKER) 30.4 K/ L 4.0-10.0 H (test code = 775) RED BLOOD CELL COUNT (BEAKER) 3.83 M/ L 4.20-5.80 L (test code = 761) HEMOGLOBIN (BEAKER) (test code = 10.6 GM/DL 13.0-16.8 L 410) HEMATOCRIT (BEAKER) (test code = 30.3 % 36.0-50.0 L 411) MEAN CORPUSCULAR VOLUME (BEAKER) 79.1 fL 82.0-99.0 L (test code = 753) MEAN CORPUSCULAR HEMOGLOBIN 27.7 pg 27.0-33.0 (BEAKER) (test code = 751) MEAN CORPUSCULAR HEMOGLOBIN CONC 35.0 GM/DL 32.0-36.0 (BEAKER) (test code = 752) RED CELL DISTRIBUTION WIDTH 14.2 % 12.0-15.0 (BEAKER) (test code = 412) PLATELET COUNT (BEAKER) (test 166 K/CU MM 150-430 code = 756) MEAN PLATELET VOLUME (BEAKER) 13.0 fL 6.0-11.5 H (test code = 754) NUCLEATED RED BLOOD CELLS 0 /100 WBC 0-0 (BEAKER) (test code = 413) (MANUAL DIFFERENTIAL)2022-02-08 06:17:13 Test Item Value Reference Range Interpretation Comments NEUTROPHILS - REL (DIFF) (BEAKER) 78 % (test code = 1359) LYMPHOCYTES - REL (DIFF) (BEAKER) 4 % (test code = 1360) MONOCYTES - REL (DIFF) (BEAKER) 2 % (test code = 1361) BANDS - REL (DIFF) (BEAKER) (test 16 % 0-10 H code = 1348) NEUTROPHILS - ABS (DIFF) (BEAKER) 23.71 K/ L 1.80-8.00 H (test code = 1365) LYMPHOCYTES - ABS (DIFF) (BEAKER) 1.22 K/ L 1.48-4.50 L (test code = 1366) MONOCYTES - ABS (DIFF) (BEAKER) 0.61 K/ L 0.00-1.30 (test code = 1367) BANDS-ABS (DIFF) (BEAKER) (test 4.9 K/ L 0.0-0.8 H code = 1349) TOTAL COUNTED (BEAKER) (test code 100 = 1351) BANDS + SEGMENTED NEUTROPHILS 28.58 (BEAKER) (test code = 1352) WBC MORPHOLOGY (BEAKER) (test code Normal = 487) PLT MORPHOLOGY (BEAKER) (test code Normal = 486) RBC MORPHOLOGY (BEAKER) (test code Normal = 762) B-TYPE NATRIURETIC FACTOR (BNP)2022-02-08 06:14:59 Test Item Value Reference Range Interpretation Comments B-TYPE NATRIURETIC PEPTIDE 2087 pg/mL 0-100 H (BEAKER) (test code = 700) Canvas [employer] Machine ID - LITOTROPONIN [id number] 06:14:48 Test Item Value Reference Range Interpretation Comments TROPONIN I (BEAKER) (test code = 1.48 ng/mL 0.00-0.15 HH 397) Troponin I (TnI) levels must be interpreted in the context of the presenting symptoms and the clinical findings. Elevated TnI levels indicate myocardial damage, but are not specific for ischemic heart disease. Elevated TnI levels are seen in patients with other cardiac conditions (including myocarditis and congestive heart failure), and slight TnI elevations occur in patients with other conditions, including sepsis, renal failure, acidosis, acute neurological disease, and persistent tachyarrhythmia.Canvas Cutter Machine ID - LITOHEMOGLOBIN A1C 2022-02-08 06:08:30 Test Item Value Reference Range Interpretation Comments HEMOGLOBIN A1C (BEAKER) (test code = 12.6 % 4.3-6.1 H 368) Canvas C[employer] Machine ID - LITOLACTIC ACID, [id number] 06:04:47 Test Item Value Reference Range Interpretation Comments LACTATE BLOOD 1.79 mmol/L See_Comment [Automated me ssage] VENOUS (2) (BEAKER) The syst em which (test code = 2872) generated this result transmitted ref erence range: 0.50-<2. 00. The reference range was not used to interpr et this result as normal/abnormal . Canvas Cutter Machine ID - LITOOperator ID - LITOOperator ID - LITOOperator ID - DOUGLAS PROTHROMBIN TIME/[id number] 06:01:25 Test Item Value Reference Range Interpretation Comments PROTIME (ILIAAKER) 13.4 seconds 9.3-12.0 H Final Infor mation (test code = 759) (Auto Outp ut) INR (BEAKER) (test 1.24 See_Comment Final Inf ormation code = 370) (Auto Output) [Automated mess age] The system whic h generated this result transmitted ref erence range: <=5.90. The reference range was not used to int erpret this result as normal/abnormal . RECOMMENDED COUMADIN/WARFARIN INR THERAPY RANGESSTANDARD DOSE: 2.0 - 3.0 Includes: PROPHYLAXIS for venous thrombosis, systemic embolization; TREATMENT for venous thrombosis and/or pulmonary embolus.HIGH RISK: Target INR is 2.5-3.5 for patients with mechanical heart valves.POCT-GLUCOSE [id number] 05:41:10 Test Item Value Reference Range Interpretation Comments POC-GLUCOSE METER 290 mg/dL 70-110 H : TESTED A T [facility] [address] (BEAKER) (test code [address], = 1538) [facility] 77 478: Canvas Cutter Machine/Techni cristina ID = [id number] for Danii Joseph POCT-GLUCOSE [id number] 12:52:00 Test Item Value Reference Range Interpretation Comments POC-GLUCOSE METER 286 mg/dL 70-110 H : TESTED A T [facility] (BEAKER) (test code [address] [facility] B = 1538) [facility] [id number]: Canvas Cutter Machine/Techni cristina ID = [id number] for AXEL HONEYCUTT
[2022-09-28 11:19] LABS: Absolute Lymphocytes (CBC) 2.1 K/uL (0.7-4.9); Hematocrit 27.5 % (39.6-49.0); Lymphocytes % 24.2 % (15.3-44.8); MCV 63.2 fL (80-100); RBC Red Blood Cell Count 4.35 M/uL (4.33-5.43)
[2022-09-28 11:23] LABS: Protime INR 1.63
[2022-09-28 11:43] LABS: Potassium 3.2 mmol/L (3.5-5.1); Troponin High Sensitivity 11.7 pg/mL (<58.9)
[2022-09-28 11:50] LABS: Albumin 2.6 g/dL (3.4-5.0); Bilirubin Direct 0.4 mg/dL (0-0.2); Bilirubin Total 0.9 mg/dL (0.2-1.0)
--- NOTE | 2022-09-28 12:22 | RAD REPORT ---
EXAM DESCRIPTION: Noe Single View09/28/2022 11:29 am CLINICAL HISTORY: Chest pain COMPARISON: February 17 FINDINGS: Small to moderate right pleural effusion is suspected with basilar atelectasis Mild bilateral interstitial pulmonary opacities. Heart is mildly enlarged IMPRESSION: Findings probably indicate CHF
--- NOTE | 2022-09-28 12:36 | ER ---
Nurse's Notes [facility] Name: Royce Farr Age: 51 yrs Sex: Male : 1970 Arrival Date: 09/28/2022 Time: 10:51 Bed 8 Private MD: Diagnosis: Systolic (congestive) heart failure;Syncope Near;Hypotension, unspecified Presentation: 09/28 10:51 Chief complaint: EMS states: Toned out for near syncope while washing clothes, BP jl7 110/79, HR 80 bpm with 20-40 PVCs, O2 100% on RA, BGL 355. 10:51 Method Of Arrival: EMS: [facility] jl7 10:51 Coronavirus screen: At this time, the client does not indicate any symptoms associated jl7 with coronavirus-19. Ebola Screen: No symptoms or risks identified at this time. Initial Sepsis Screen: Does the patient meet any 2 criteria? No. Patient's initial sepsis screen is negative. Does the patient have a suspected source of infection? No. Patient's initial sepsis screen is negative. Risk Assessment: Do you want to hurt yourself or someone else? Patient reports no desire to harm self or others. Onset of symptoms was September 28, 2022. 10:51 Acuity: SANDRO 2 jl7 Triage Assessment: 10:51 General: Appears in no apparent distress. uncomfortable, Behavior is calm, cooperative, jl7 appropriate for age. Pain: Complains of pain in chest Pain does not radiate. Pain currently is 4 out of 10 on a pain scale. Quality of pain is described as pressure. Neuro: Level of Consciousness is awake, alert, obeys commands, Oriented to person, place, time, situation. Cardiovascular: Rhythm is regular. Respiratory: Airway is patent Respiratory effort is even, unlabored, Respiratory pattern is regular, symmetrical. Derm: Skin is diaphoretic, Skin is pale, Skin temperature is cool. Historical: - Allergies: 11:12 No Known Allergies; jl7 - Home Meds: 11:12 Aspirin Oral [Active]; carvedilol oral [Active]; Plavix Oral [Active]; Lasix Oral jl7 [Active]; Entresto oral [Active]; - PMHx: 11:12 Congestive heart failure; Hypertensive disorder; Myocardial infarction; Diabetes jl7 mellitus; - PSHx: 11:12 cardiac stent x 2; jl7 - Immunization history:: Adult Immunizations up to date, Client reports receiving the 2nd dose of the Covid vaccine. - Social history:: Smoking status: Patient denies any tobacco usage or history of. Screenin:00 Abuse screen: Denies threats or abuse. Denies injuries from another. Nutritional jl7 screening: No deficits noted. Tuberculosis screening: No symptoms or risk factors identified. Fall Risk IV access (20 points). Total Ortiz Fall Scale indicates No Risk (0-24 pts). Assessment: 11:30 Reassessment: Patient appears in no apparent distress at this time. Patient and/or jl7 family updated on plan of care and expected duration. Pain level reassessed. Reports pain to left rib area. Cardiovascular: Patient's skin is warm and dry. Edema is 3+ to pubic area down to bilateral toes. : Denies burning with urination, inability to void, urinary frequency. Derm: Skin is dry, Skin is pale, Skin temperature is warm. 12:15 Reassessment: Orthostatics done, pt reports dizziness on sitting and standing. jl7 Vital Signs: 10:51 BP 82 / 61; Pulse 84; Resp 18; Temp 98.5; Pulse Ox 100% ; Weight 67.13 kg; Height 5 ft. jl7 5 in. (165.10 cm); Pain 4/10; 11:27 BP 87 / 60; Pulse 87; Resp 15; Pulse Ox 100% ; jl7 12:00 BP 86 / 55 Supine; Pulse 86; jl7 12:07 BP 96 / 58 Sitting; Pulse 86; jl7 12:10 BP 89 / 50 Standing; Pulse 88; jl7 13:00 BP 96 / 60; Pulse 88; Resp 20; Pulse Ox 97% ; jl7 13:30 BP 91 / 65; Pulse 88; Resp 20; Pulse Ox 100% ; jl7 14:06 BP 101 / 66; Pulse 88; Resp 19; Pulse Ox 98% ; jl7 10:51 Body Mass Index 24.63 (67.13 kg, 165.10 cm) jl7 ED Course: 10:51 Patient arrived in ED. em1 10:51 Arm band placed on right wrist. EKG completed in triage. Results shown to MD. jl7 11:00 Jacki Redman, RN is Primary Nurse. jl7 11:00 Patient has correct armband on for positive identification. Placed in gown. Bed in low jl7 position. Call light in reach. Side rails up X2. Client placed on continuous cardiac and pulse oximetry monitoring. NIBP monitoring applied. 11:00 Warm blanket given. jl7 11:01 Mariana Martines FNP [facility]. jl7 11:01 Caio Bello MD is Attending Physician. jl7 11:12 Triage completed. jl7 11:15 Initial lab(s) drawn, by me, sent to lab. Maintain EMS IV. Gauge \T\ site: 20 Right AC. jl7 11:31 XRAY Chest (1 view) In Process Unspecified. EDMS 12:36 Son Llamas MD is Hospitalizing Provider. jh7 13:02 CT Head Brain wo Cont In Process Unspecified. EDMS 14:08 Patient admitted, IV remains in place. intact, No redness/swelling at site. jl7 15:55 No provider procedures requiring assistance completed. jl7 Administered Medications: 10:51 Drug: NS 0.9% 1000 ml {Note: Fluids started by EMS.} Route: IV; Rate: 1 bolus; Site: jl7 left antecubital; 11:30 Follow up: IV Status: Completed infusion; IV Intake: 1000ml jl7 Medication: 14:06 VIS not applicable for this client. jl7 Intake: 11:30 IV: 1000ml; Total: 1000ml. jl7 Outcome: 12:36 Decision to Hospitalize by Provider. jh7 15:55 Admitted to Med/surg accompanied by tech, via stretcher, room 212, with chart, Report jl7 called to NEY Oconnell 15:55 Condition: stable 15:55 Discharge instructions given to patient, Instructed on the need for admit, Demonstrated understanding of instructions. 16:21 Patient left the ED. jl7 Signatures: Dispatcher [employer] EDMS Jl Wise em1 Jacki Redman RN RN jl7 Mariana Martines FNP FNP [facility]
--- NOTE | 2022-09-28 12:37 | EDPHYS ---
Physician Documentation [facility] Name: Royce Farr Age: 51 yrs Sex: Male : 1970 Arrival Date: 09/28/2022 Time: 10:51 Bed 8 Private MD: ED Physician Caio Bello HPI: 09/28 11:15 This 51 yrs old Male presents to ER via EMS with complaints of Near Syncope. [facility] 11:15 The patient has experienced near-syncope, almost passed out. Onset: The 7 symptoms/episode began/occurred acutely. Duration: This was a single episode. Context: occurred [facility] . Associated injury: The patient did not suffer any apparent associated injury. Associated signs and symptoms: Pertinent positives: lightheadedness, Chest pain, Pertinent negatives: confusion, headache, nausea, shortness of breath, vomiting. Patient stated that he was washing his close and suddenly felt like he was going to pass out. States that he slowly slid to the floor but did not lose consciousness. Also reports chest pressure for the past [address] Llamas is his PCP and Dr. Cordova his patch worker. Complains of dizziness. Patient reports that he saw his PCP yesterday for bloating and retaining fluid, and just increased his Lasix from 40 mg to 80 mg.. Historical: - Allergies: 11:12 No Known Allergies; jl7 - Home Meds: 11:12 Aspirin Oral [Active]; carvedilol oral [Active]; Plavix Oral [Active]; Lasix Oral jl7 [Active]; Entresto oral [Active]; - PMHx: 11:12 Congestive heart failure; Hypertensive disorder; Myocardial infarction; Diabetes jl7 mellitus; - PSHx: 11:12 cardiac stent x 2; jl7 - Immunization history:: Adult Immunizations up to date, Client reports receiving the 2nd dose of the Covid vaccine. - Social history:: Smoking status: Patient denies any tobacco usage or history of. ROS: 11:15 Constitutional: Negative for fever, chills, and weight loss, Eyes: Negative for injury, jh7 pain, redness, and discharge, ENT: Negative for injury, pain, and discharge, Neck: Negative for injury, pain, and swelling, Abdomen/GI: Negative for abdominal pain, nausea, vomiting, diarrhea, and constipation, Back: Negative for injury and pain, MS/Extremity: Negative for injury and deformity. 11:15 Cardiovascular: Positive for chest pain, edema. 11:15 Respiratory: Negative for cough, shortness of breath, wheezing. 11:15 Skin: Positive for pallor. 11:15 Neuro: Positive for dizziness, near syncope, weakness, Negative for loss of consciousness, visual changes. 11:15 All other systems are negative. Exam: 11:15 Constitutional: This is a well developed, well nourished patient who is awake, alert, jh7 and in no acute distress. Head/Face: Normocephalic, atraumatic. Eyes: Pupils equal round and reactive to light, extra-ocular motions intact. Lids and lashes normal. Conjunctiva and sclera are non-icteric and not injected. Cornea within normal limits. Periorbital areas with no swelling, redness, or edema. Neck: Trachea midline, no thyromegaly or masses palpated, and no cervical lymphadenopathy. Supple, full range of motion without nuchal rigidity, or vertebral point tenderness. No Meningismus. 11:15 Back: No spinal tenderness. No costovertebral tenderness. Full range of motion. MS/ Extremity: Pulses equal, no cyanosis. Neurovascular intact. Full, normal range of motion. Neuro: Awake and alert, GCS 15, oriented to person, place, time, and situation. Motor strength 5/5 in all extremities. Sensory grossly intact. Normal gait. 11:15 Cardiovascular: Rate: normal, Rhythm: regular, Pulses: Pulses are 2+ in right radial artery and left radial artery. Edema: 3+ edema to level of waist, pubic area, left upper thigh, left lower thigh, left knee, left midcalf, left ankle, left foot, right upper thigh, right lower thigh, right knee, right midcalf, right ankle and right foot. 11:15 ECG was reviewed by the Attending Physician. 11:15 Respiratory: the patient does not display signs of respiratory distress, Respirations: normal, Breath sounds: decreased breath sounds, are located in both bases. 11:15 Skin: Appearance: Color: pale. Vital Signs: 10:51 BP 82 / 61; Pulse 84; Resp 18; Temp 98.5; Pulse Ox 100% ; Weight 67.13 kg; Height 5 ft. jl7 5 in. (165.10 cm); Pain 4/10; 11:27 BP 87 / 60; Pulse 87; Resp 15; Pulse Ox 100% ; 7 12:00 BP 86 / 55 Supine; Pulse 86; 7 12:07 BP 96 / 58 Sitting; Pulse 86; 7 12:10 BP 89 / 50 Standing; Pulse 88; jl7 13:00 BP 96 / 60; Pulse 88; Resp 20; Pulse Ox 97% ; 7 13:30 BP 91 / 65; Pulse 88; Resp 20; Pulse Ox 100% ; jl7 14:06 BP 101 / 66; Pulse 88; Resp 19; Pulse Ox 98% ; 7 10:51 Body Mass Index 24.63 (67.13 kg, 165.10 cm) [facility] MDM: 11:03 Patient medically screened. [facility] 12:30 Physician consultation: Son Llamas MD was called at 12:30, was contacted at 12:30, [facility] regarding patient's condition, and will see patient later today, Consulted Dr. Llamas on the patient. He reports that the patient is in systolic heart failure and that he recently doubled his Lasix. Also stated that the patient's patch worker, Dr. Cordova, was going to perform a heart catheterization next Sunday. He advised to admit here for diuresis. He stated that he would enter his own orders on [facility].. 12:35 Differential Diagnosis: vasovagal episode, CHF exacerbation, orthostatic hypotension, [facility] acute PA. Data reviewed: vital signs, nurses notes, lab test result(s), EKG, radiologic studies, CT scan, plain films. Data interpreted: Pulse oximetry: is 100 %. Interpretation: normal. Counseling: I had a detailed discussion with the patient and/or guardian regarding: the historical points, exam findings, and any diagnostic results supporting the discharge/admit diagnosis, the need for further work-up and treatment in the hospital. 09/28 10:59 Order name: Basic Metabolic Panel; Complete Time: 11:50 09/28 10:59 Order name: CBC with Diff; Complete Time: 13:24 09/28 10:59 Order name: PT-INR; Complete Time: 11:50 09/28 10:59 Order name: Troponin HS; Complete Time: 11:50 09/28 11:10 Order name: LFT's; Complete Time: 11:58 [facility] 09/28 11:10 Order name: Magnesium; Complete Time: 11:58 7 09/28 10:59 Order name: XRAY Chest (1 view); Complete Time: 12:26 iw 09/28 12:58 Order name: CBC Smear Scan; Complete Time: 13:24 EDMS 09/28 13:08 Order name: Troponin High Sensitivity; Complete Time: 17:01 EDMS 09/28 13:12 Order name: SARS-COV-2 Antigen Rapid em1 09/28 13:25 Order name: Guiac 7 09/28 14:01 Order name: SARS-COV-2 Antigen Rapid; Complete Time: 14:53 EDMS 09/28 14:04 Order name: Occult Blood--Ancillary; Complete Time: 14:53 EDMS 09/28 16:12 Order name: Glucose, Ancillary Testing; Complete Time: 17:01 EDMS 09/28 10:59 Order name: EKG; Complete Time: 11:00 iw 09/28 10:59 Order name: Cardiac monitoring; Complete Time: 11:16 iw 09/28 10:59 Order name: EKG - Nurse/Tech; Complete Time: 11:16 iw 09/28 10:59 Order name: IV Saline Lock; Complete Time: 11:16 iw 09/28 10:59 Order name: Labs collected and sent; Complete Time: 11:16 iw 09/28 10:59 Order name: O2 Per Protocol; Complete Time: 11:16 iw 09/28 10:59 Order name: O2 Sat Monitoring; Complete Time: 11:16 09/28 11:10 Order name: Orthostatics; Complete Time: 12:25 7 09/28 12:43 Order name: CT Head Brain wo Cont; Complete Time: 13:24 7 EC:15 Rate is 86 beats/min. Rhythm is regular. QRS [place]ipley is Normal. TX interval is normal at 7 128 msec. QRS interval is normal at 96 msec. QT interval is prolonged at 470 msec. No Q waves. Clinical impression: Sinus rhythm with frequent premature ventricular complexes. Administered Medications: 10:51 Drug: NS 0.9% 1000 ml {Note: Fluids started by EMS.} Route: IV; Rate: 1 bolus; Site: jl7 left antecubital; 11:30 Follow up: IV Status: Completed infusion; IV Intake: 1000ml jl7 Disposition Summary: 09/28/22 12:36 Hospitalization Ordered Hospitalization Status: Inpatient Admission [facility] Provider: Son Llamas [facility] Location: Telemetry/MedSurg (Inpatient) [facility] Condition: Stable [facility] Problem: new [facility] Symptoms: are unchanged [facility] Bed/Room Type: Standard [facility] Room Assignment: 212(09/28/22 15:23) dw Diagnosis - Systolic (congestive) heart failure [facility] - Syncope Near [facility] - Hypotension, unspecified [facility] Forms: - Medication Reconciliation Form [facility] - SBAR form [facility] Addendum: 10/01/2022 07:57 Co-signature as Attending Physician, Caio Bello MD I agree with the assessment and c flannery plan of care. Signatures: Dispatcher [employer] Janel Parker RN RN dw Anderson, Corey, MD MD cha Williams, Irene RN Jacki Hadley RN RN jl7 Hadash, Jennifer, TITLE DEPARTMENT MANAGER TITLE DEPARTMENT MANAGER [facility] Corrections: (The following items were deleted from the chart) 09/28 15:23 12:36 [facility] dw
[2022-09-28 12:57] LABS: Anisocytosis 2+; Blood Morphology Comment NOTED (NOT SEEN); Platelet Estimate ADEQ; White Blood Cell Scan OK (OK)
[2022-09-28 12:58] LABS: Hypochromasia 2+; Polychromasia 1+
--- NOTE | 2022-09-28 13:10 | RAD REPORT ---
EXAM DESCRIPTION: CT - Head Brain Wo Cont - 09/28/2022 1:01 pm CLINICAL HISTORY: near syncope Headache, drowsiness COMPARISON: No comparisons TECHNIQUE: All CT scans are performed using dose optimization technique as appropriate and may inclu de automated exposure control or mA/KV adjustment according to patient size. FINDINGS: No intracranial hemorrhage, hydrocephalus or extra-axial fluid collection.Mild brain atrop hy noted.No areas of brain edema or evidence of midline shift. The paranasal sinuses and mastoids are clear. The calvarium is intact. IMPRESSION: No acute intracranial abnormality.
[2022-09-28 14:00] LABS: SARS-CoV-2 Antigen Rapid Res Negative (Negative)
--- NOTE | 2022-09-28 15:32 | P.HP ---
Certification for Inpatient Patient admitted to: Observation With expected LOS: <2 Midnights Patient will require the following post-hospital care: None Practitioner: I am a practitioner with admitting privileges, knowledge of patient current condition, hospital course, and medical plan of care. 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 With a history of CHF, Dm2, and htn. He was in the office yesterday with fluid overload. Had swelling in his legs and abdomin. I had increased his Lasix to 80units a day. Doubled his Entresto to 48-51mg. Thought he did not get that dosage yet. Had spoken to Dr. Juan Francisco Interiano yesterday. The patient seems to recently had a worsening of his EF. Dr. Interiano is planning a Cardiac MRI and possible cath of the patient next week. The patient was told to hold his diabetic medications. I believe he was told to hold the xigduo before a procedure involving iv contrast. He seems to have thought to stop all his diabetic medication. Which he has not been taking for the past 2 days. His glucose is in the 300's and his potassium was 3.2 Today he was at the [facility]. [place] dizzy and slid to the floor. Called Ems and was found to be hypotensive. He did not complaint of chest pain. No sob. Allergies No Known Allergies Allergy (Unverified 01/26/17 02:17) Review of Systems 10-point ROS is otherwise unremarkable General: Weakness, Malaise Physical Examination - Physical Exam General: Alert, In no apparent distress HEENT: Atraumatic, PERRLA, Mucous membr. moist/pink, EOMI, Sclerae nonicteric Neck: Supple, 2+ carotid pulse no bruit, No LAD, Without JVD or thyroid abnormality Respiratory: Clear to auscultation bilaterally, Normal air movement Cardiovascular: Regular rate/rhythm, Normal S1 S2, Edema (1+ up to the abdomen. Improved from yesterday ) Gastrointestinal: Normal bowel sounds, No tenderness Musculoskeletal: No tenderness Integumentary: No rashes Neurological: Normal gait, Normal speech, Normal strength at 5/5 x4 extr, Normal tone, Normal affect Lymphatics: No axilla or inguinal lymphadenopathy - Studies Laboratory Data (last 24 hrs) 09/28/22 11:09: Magnesium 2.0, Total Bilirubin 0.9, AST 38 H, ALT 40, Alkaline Phosphatase 140 H 09/28/22 11:09: PT 17.9 H, INR 1.63 09/28/22 11:09: WBC 8.50, Hgb 8.2 L, Hct 27.5 L, Plt Count 404 09/28/22 11:09: Sodium 134 L, Potassium 3.2 L, BUN 22 H, Creatinine 1.10, Glucose 326 H Assessment and Plan - Problems (Diagnosis) (1) Acute systolic (congestive) heart failure Current Visit: Yes Status: Acute Plan: Will admit to the floor continue high dose lasix and entresto. Will monitor his fluid level and troponin level. If there is any elevations we can transfer him to [facility] with Dr. Interiano. (2) Hyperosmolar non-ketotic state due to type 2 diabetes mellitus Current Visit: Yes Status: Acute Plan: Start the patient on sliding scale insulin. Will also replace his potassium. Have him restart the xigduo He is on 10-1000mg qday. Have asked his mother to bring his home medications (3) HTN (hypertension) Current Visit: Yes Status: Chronic Plan: will continue monitoring. he does have a low bp. this is normally lower in patient with significanly reduced ejection fractions. Qualifiers: Hypertension type: primary hypertension Qualified Code(s): I10 - Essential (primary) hypertension Discharge Plan: Home Plan to discharge in: 24 Hours - Advance Directives Does patient have a Living Will: No Does patient have a Durable POA for Healthcare: No - Code Status/Comfort Care Code Status Assessed: Yes Code Status: Full Code Physician Review: Patient Assessed, Agree with Above Assessment and Plan Critical Care: No Time Spent Managing Pts Care (In Minutes): 40
[2022-09-28] MEDS ORDERED: GLUCAGON 1 MG/VIAL IM PRN (16:53)
[2022-09-28] MEDS ORDERED: DEXTROSE 10%-WATER 500 ML IV BAG IV PRN (17:04)
[2022-09-28] MEDS: INSULIN -REGULAR HUMAN 50 UNIT/0.5 ML ML SQ SCH ×2 (17:50→21:00)
[2022-09-28] MEDS: ENOXAPARIN 40 MG/0.4 ML SQ SCH (17:51)
[2022-09-28] MEDS ORDERED: POTASSIUM 25 MEQ EFFERV TAB PO ONE (18:00)
[2022-09-28 18:03] VITALS: BMI 24.6
[2022-09-28] MEDS ORDERED: INSULIN -REGULAR HUMAN 50 UNIT/0.5 ML ML SQ SCH (21:00)
[2022-09-29] MEDS ORDERED: clonazePAM 0.5 MG TAB PO PRN (05:50)
[2022-09-29 06:03] LABS: Absolute Lymphocytes (CBC) 2.9 K/uL (0.7-4.9); Hematocrit 27.8 % (39.6-49.0); Lymphocytes % 28.4 % (15.3-44.8); MCV 62.7 fL (80-100); MPV 9.5 fL (7.6-11.3); RBC Red Blood Cell Count 4.43 M/uL (4.33-5.43)
[2022-09-29 06:23] LABS: Albumin 2.5 g/dL (3.4-5.0); Bilirubin Total 0.9 mg/dL (0.2-1.0); Magnesium 1.9 mg/dL (1.8-2.4); Potassium 3.9 mmol/L (3.5-5.1); Protein, Total 5.8 g/dL (6.4-8.2); Thyroid Stimulating Hormone 3.31 uIU/mL (0.360-3.740)
--- NOTE | 2022-09-29 07:53 | EKG ---
Test Date: 2022-09-28 Test Time: 10:56:18 Lap Winding Machine Operator: CHRIS MEASUREMENT RESULTS: Intervals: Rate: 86 NM: 128 QRSD: 96 QT: 470 QTc: 562 [place]: P: 76 NM: 128 QRS: -17 T: -81 INTERPRETIVE STATEMENTS: Sinus rhythm with frequent premature ventricular complexes Low voltage QRS Possible Anterolateral infarct, age undetermined Prolonged QT Abnormal ECG Compared to ECG 02/07/2022 23:56:53 Ventricular premature complex(es) now present Low QRS voltage now present Sinus tachycardia no longer present Left-axis deviation no longer present Incomplete right bundle-branch block no longer present Myocardial infarct finding still present Electronically Signed On 09-29-22 07:49:15 BIOMEDICAL REPAIR TECHNICIAN by Fadi Palumbo
--- NOTE | 2022-09-29 08:14 | P.PN ---
Subjective Date of Service: 09/29/22 Primary Care Provider: Farhad Chief Complaint: hyperglycemia Subjective: No new changes Review of Systems 10-point ROS is otherwise unremarkable Cardiovascular: [place] Physical Examination - Vital Signs Temperature: 97.1 F Blood Pressure: 90/60 Pulse: 69 Respirations: 18 Pulse Ox (%): 95 - Physical Exam General: Alert, In no apparent distress HEENT: Atraumatic, PERRLA, EOMI Neck: Supple, JVD not distended Respiratory: Clear to auscultation bilaterally, Normal air movement Cardiovascular: Regular rate/rhythm, Normal S1 S2 Gastrointestinal: Normal bowel sounds, No tenderness Musculoskeletal: No tenderness Integumentary: No rashes Neurological: Normal speech, Normal tone, Normal affect Lymphatics: No axilla or inguinal lymphadenopathy - Studies Laboratory Data (last 24 hrs) 09/28/22 11:09: Magnesium 2.0, Total Bilirubin 0.9, AST 38 H, ALT 40, Alkaline Phosphatase 140 H 09/28/22 11:09: PT 17.9 H, INR 1.63 09/28/22 11:09: WBC 8.50, Hgb 8.2 L, Hct 27.5 L, Plt Count 404 09/28/22 11:09: Sodium 134 L, Potassium 3.2 L, BUN 22 H, Creatinine 1.10, Glucose 326 H Assessment And Plan - Current Problems (Diagnosis) (1) Hyperosmolar non-ketotic state due to type 2 diabetes mellitus Current Visit: Yes Status: Resolved Plan: Start the patient on sliding scale insulin. Will also replace his potassium. Have him restart the xigduo He is on 10-1000mg qday. Have asked his mother to bring his home medications 09/29 continue metformin and add meclizine for the dizziness (2) Acute systolic (congestive) heart failure Current Visit: Yes Status: Acute Plan: Will admit to the floor continue high dose lasix and entresto. Will monitor his fluid level and troponin level. If there is any elevations we can transfer him to [facility] with Dr. Interiano. 09/29 decrease the lasix to 40 units. to perserve his creatine (3) HTN (hypertension) Current Visit: Yes Status: Chronic Plan: will continue monitoring. he does have a low bp. this is normally lower in patient with significanly reduced ejection fractions. Qualifiers: Hypertension type: primary hypertension Qualified Code(s): I10 - Essential (primary) hypertension Discharge Plan: Home Plan to discharge in: 24 Hours - Code Status/Comfort Care Code Status Assessed: No Physician Review: Patient Assessed, Agree with Above Assessment and Plan Critical Care: No Time Spent Managing PTS Care (In Minutes): 20
[2022-09-29] MEDS: FUROSEMIDE 40 MG/4 ML VIAL IV SCH (08:37)
[2022-09-29] MEDS: METFORMIN ER 500 MG TAB PO SCH (08:37)
[2022-09-29] MEDS: POTASSIUM CL SA 10 MEQ TAB PO SCH (08:37)
[2022-09-29] MEDS: MECLIZINE HCL 12.5 MG TAB PO PRN (08:38)
[2022-09-29] MEDS: INSULIN -REGULAR HUMAN 50 UNIT/0.5 ML ML SQ SCH ×4 (08:38→20:47)
[2022-09-29] MEDS ORDERED: FUROSEMIDE 40 MG/4 ML VIAL IV SCH (09:00)
[2022-09-29] MEDS: ENOXAPARIN 40 MG/0.4 ML SQ SCH (16:46)
[2022-09-30] MEDS: MECLIZINE HCL 12.5 MG TAB PO PRN (04:06)
[2022-09-30 06:20] LABS: Absolute Lymphocytes (CBC) 2.7 K/uL (0.7-4.9); Hematocrit 28.4 % (39.6-49.0); Lymphocytes % 28.1 % (15.3-44.8); MCV 62.3 fL (80-100); MPV 9.5 fL (7.6-11.3); RBC Red Blood Cell Count 4.56 M/uL (4.33-5.43)
[2022-09-30 06:51] LABS: Albumin 2.6 g/dL (3.4-5.0); Bilirubin Total 1.3 mg/dL (0.2-1.0); Potassium 4.4 mmol/L (3.5-5.1); Protein, Total 5.8 g/dL (6.4-8.2)
[2022-09-30] MEDS: POTASSIUM CL SA 10 MEQ TAB PO SCH (08:47)
[2022-09-30] MEDS: FUROSEMIDE 40 MG/4 ML VIAL IV SCH (08:47)
[2022-09-30] MEDS: METFORMIN ER 500 MG TAB PO SCH (08:47)
[2022-09-30] MEDS: INSULIN -REGULAR HUMAN 50 UNIT/0.5 ML ML SQ SCH ×4 (08:49→21:00)
--- NOTE | 2022-09-30 10:38 | P.DS ---
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 With a history of CHF, Dm2, and htn. He was in the office yesterday with fluid overload. Had swelling in his legs and abdomin. I had increased his Lasix to 80units a day. Doubled his Entresto to 48-51mg. Thought he did not get that dosage yet. Had spoken to Dr. Juan Francisco Interiano yesterday. The patient seems to recently had a worsening of his EF. Dr. Interiano is planning a Cardiac MRI and possible cath of the patient next week. The patient was told to hold his diabetic medications. I believe he was told to hold the xigduo before a procedure involving iv contrast. He seems to have thought to stop all his diabetic medication. Which he has not been taking for the past 2 days. His glucose is in the 300's and his potassium was 3.2 Today [facility] [place] dizzy and slid to the floor. Called [facility] and was found to be hypotensive. He did not complaint of chest pain. No sob. Hospital Course: Patient was admitted for control of his blood sugar and diuresis. he did well on his medications. Is no longer fluid overloaded. Unfortunately the patient had an elevation in his creatine. Most likely due to increased lasix dosage. will check a noon bmp. If his creatine is trending downwards we can discharge. Had increased his entresto to 48-51 as an outpatient. He informed me that it was in the pharmacy. He has a appointment for imaging with Dr. Interiano this coming Sunday. Dr. Interiano has informed me that the patients EF has been declining and he is considering an angiogram on the patient in the near future. Vital Signs/Physical Exam: Temp Pulse Resp BP Pulse Ox 97.6 F 89 18 124/85 94 09/30/22 08:00 09/30/22 08:00 09/30/22 08:00 09/30/22 08:00 09/30/22 08:00 General: Alert, In no apparent distress HEENT: Atraumatic, PERRLA, EOMI Neck: Supple, JVD not distended Respiratory: Clear to auscultation bilaterally, Normal air movement Cardiovascular: Regular rate/rhythm, Normal S1 S2 Gastrointestinal: Normal bowel sounds, No tenderness Musculoskeletal: No tenderness Integumentary: No rashes Neurological: Normal speech, Normal tone, Normal affect Lymphatics: No axilla or inguinal lymphadenopathy Laboratory Data at Discharge: WBC 9.80 K/uL (4.3-10.9) 09/30/22 06:01 Hgb 8.7 g/dL (13.6-17.9) L 09/30/22 06:01 Hct 28.4 % (39.6-49.0) L 09/30/22 06:01 Plt Count 429 K/uL (152-406) H 09/30/22 06:01 PT 17.9 SECONDS (9.5-12.5) H 09/28/22 11:09 INR 1.63 09/28/22 11:09 Sodium 133 mmol/L (136-145) L 09/30/22 06:01 Potassium 4.4 mmol/L (3.5-5.1) 09/30/22 06:01 BUN 36 mg/dL (7-18) H 09/30/22 06:01 Creatinine 1.54 mg/dL (0.55-1.3) H 09/30/22 06:01 Glucose 161 mg/dL (74-106) H 09/30/22 06:01 Magnesium 1.9 mg/dL (1.8-2.4) 09/29/22 05:50 Total Bilirubin 1.3 mg/dL (0.2-1.0) H 09/30/22 06:01 AST 234 U/L (15-37) H 09/30/22 06:01 ALT 169 U/L (12-78) H 09/30/22 06:01 Alkaline Phosphatase 255 U/L (45-117) H D 09/30/22 06:01 Home Medications: Aspirin [Aspirin EC 81 MG] 1 tab PO DAILY 09/28/22 Atorvastatin Calcium 1 tab PO DAILY 09/28/22 Carvedilol [Coreg] 1 tab PO BID 09/28/22 Clopidogrel Bisulfate [Plavix*] 1 tab PO DAILY 09/28/22 Dapagliflozin/Metformin HCl [Xigduo Xr 10 mg-1,000 mg Tab] 1 tab PO DAILY 09/28/22 Niacin [Niacin ER] 1 tab PO BEDTIME 09/28/22 Furosemide 1 tab PO DAILY 30 Days #30 tab 09/30/22 New Medications: Furosemide 1 tab PO DAILY 30 Days #30 tab Diet: AHA Activity: Ad ash Followup: Son Llamas MD [Primary Care Provider] - 1 Week Jesus Interiano MD [OUTSIDE PHYSICIAN] - 1 Week Physician Review: Patient Assessed, Agree with Above Assessment and Plan Time spent managing pt's care (in minutes): 30
[2022-09-30 12:48] LABS: Potassium 4.3 mmol/L (3.5-5.1)
[2022-09-30] MEDS: ENOXAPARIN 40 MG/0.4 ML SQ SCH (17:06)
[2022-10-01 04:10] VITALS: O2SAT 98
[2022-10-01 06:18] LABS: Absolute Lymphocytes (CBC) 3.2 K/uL (0.7-4.9); Hematocrit 31.8 % (39.6-49.0); Lymphocytes % 32.2 % (15.3-44.8); MCV 62.6 fL (80-100); RBC Red Blood Cell Count 5.08 M/uL (4.33-5.43)
[2022-10-01 06:19] LABS: Albumin 2.8 g/dL (3.4-5.0); Bilirubin Total 1.2 mg/dL (0.2-1.0); Potassium 3.9 mmol/L (3.5-5.1); Protein, Total 6.4 g/dL (6.4-8.2)
[2022-10-01] MEDS: INSULIN -REGULAR HUMAN 50 UNIT/0.5 ML ML SQ SCH ×2 (07:30→11:30)
[2022-10-01] MEDS: POTASSIUM CL SA 10 MEQ TAB PO SCH (09:07)
[2022-10-01] MEDS: METFORMIN ER 500 MG TAB PO SCH (09:07)
[2022-10-01 10:31] LABS: Anisocytosis 1+; Blood Morphology Comment NOTED (NOT SEEN); Hypochromasia 2+; Platelet Estimate ADEQ; White Blood Cell Scan OK (OK)
[2022-10-01 10:32] LABS: Poikilocytosis SLIGHT
--- NOTE | 2022-10-01 12:20 | P.DS ---
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 With a history of CHF, Dm2, and htn. He was in the office yesterday with fluid overload. Had swelling in his legs and abdomin. I had increased his Lasix to 80units a day. Doubled his Entresto to 48-51mg. Thought he did not get that dosage yet. Had spoken to Dr. Juan Francisco Interiano yesterday. The patient seems to recently had a worsening of his EF. Dr. Interiano is planning a Cardiac MRI and possible cath of the patient next week. The patient was told to hold his diabetic medications. I believe he was told to hold the xigduo before a procedure involving iv contrast. He seems to have thought to stop all his diabetic medication. Which he has not been taking for the past 2 days. His glucose is in the 300's and his potassium was 3.2 Today he was at the [facility] [place] dizzy and slid to the floor. Called [facility] and was found to be hypotensive. He did not complaint of chest pain. No sob. Hospital Course: Patient was admitted for control of his blood sugar and diuresis. he did well on his medications. Is no longer fluid overloaded. Unfortunately the patient had an elevation in his creatine. Most likely due to increased lasix dosage. will check a noon bmp. If his creatine is trending downwards we can discharge. Had increased his entresto to 48-51 as an outpatient. He informed me that it was in the pharmacy. He has a appointment for imaging with Dr. Interiano this coming Sunday. Dr. Interiano has informed me that the patients EF has been declining and he is considering an angiogram on the patient in the near future. 10/01 Patient discharge on 09/30 was held as his creatine stayed elevated. Will discharge today. have him use lasix 40mg Intermittent can double the dosage for swelling Vital Signs/Physical Exam: Temp Pulse Resp BP Pulse Ox 97.0 F 88 12 125/89 95 10/01/22 07:39 10/01/22 07:39 10/01/22 07:39 10/01/22 07:39 10/01/22 07:39 General: Alert, In no apparent distress HEENT: Atraumatic, PERRLA, EOMI Neck: Supple, JVD not distended Respiratory: Clear to auscultation bilaterally, Normal air movement Cardiovascular: Regular rate/rhythm, Normal S1 S2 Gastrointestinal: Normal bowel sounds, No tenderness Musculoskeletal: No tenderness Integumentary: No rashes Neurological: Normal speech, Normal tone, Normal affect Lymphatics: No axilla or inguinal lymphadenopathy Laboratory Data at Discharge: WBC 9.90 K/uL (4.3-10.9) 10/01/22 05:37 Hgb 9.5 g/dL (13.6-17.9) L D 10/01/22 05:37 Hct 31.8 % (39.6-49.0) L 10/01/22 05:37 Plt Count 320 K/uL (152-406) 10/01/22 05:37 PT 17.9 SECONDS (9.5-12.5) H 09/28/22 11:09 INR 1.63 09/28/22 11:09 Sodium 136 mmol/L (136-145) 10/01/22 05:37 Potassium 3.9 mmol/L (3.5-5.1) 10/01/22 05:37 BUN 37 mg/dL (7-18) H 10/01/22 05:37 Creatinine 1.39 mg/dL (0.55-1.3) H 10/01/22 05:37 Glucose 83 mg/dL (74-106) 10/01/22 05:37 Magnesium 1.9 mg/dL (1.8-2.4) 09/29/22 05:50 Total Bilirubin 1.2 mg/dL (0.2-1.0) H 10/01/22 05:37 AST 160 U/L (15-37) H 10/01/22 05:37 ALT 169 U/L (12-78) H 10/01/22 05:37 Alkaline Phosphatase 270 U/L (45-117) H 10/01/22 05:37 Home Medications: Aspirin [Aspirin EC 81 MG] 1 tab PO DAILY 09/28/22 Atorvastatin Calcium 1 tab PO DAILY 09/28/22 Carvedilol [Coreg] 1 tab PO BID 09/28/22 Clopidogrel Bisulfate [Plavix*] 1 tab PO DAILY 09/28/22 Dapagliflozin/Metformin HCl [Xigduo Xr 10 mg-1,000 mg Tab] 1 tab PO DAILY 09/28/22 Niacin [Niacin ER] 1 tab PO BEDTIME 09/28/22 Furosemide 1 tab PO DAILY 30 Days #30 tab 09/30/22 New Medications: Furosemide 1 tab PO DAILY 30 Days #30 tab Diet: AHA Activity: hold metformin on before his procedure with IV contrast Followup: Son Llamas MD [Primary Care Provider] - 1 Week Jesus Interiano MD [OUTSIDE PHYSICIAN] - 1 Week
[2022-10-01 12:29] VITALS: BP 112/78; TEMP 97.6
== END 2022-10-01 13:17 | disposition home or self-care (01) | DRG 637 ==
LOC: SUPCPDRO 10:49 → ER 10:49 → ERHOLD 13:02 → 2ND 15:58
PROVIDERS: ADMIT Internal Medicine; ATTEND Internal Medicine
DX: E11.00 Type 2 diabetes mellitus with hyperosmolarity without nonketotic hyperglycemic-hyperosmolar coma (NKHHC) (principal); I50.21 Acute systolic (congestive) heart failure; N17.0 Acute kidney failure with tubular necrosis; I11.0 Hypertensive heart disease with heart failure; I25.2 Old myocardial infarction; Z95.5 Presence of coronary angioplasty implant and graft; Z91.14 Patient's other noncompliance with medication regimen; Z79.82 Long term (current) use of aspirin; Z79.02 Long term (current) use of antithrombotics/antiplatelets; Z79.899 Other long term (current) drug therapy; Z20.822 Contact with and (suspected) exposure to COVID-19
CPT/HCPCS: 36415; 70450; 71045; 80048; 80053; 80076; 82272; 82947; 83735; 84443; 84484; 85025; 85610; 87811; 93005; 96360; 97116; 97161; 97530; 99285; J1650; J1815; J1940; J8597

== ENCOUNTER 2022-11-01 20:05 | Emergency (ER) | payer BC ==
--- OUTSIDE RECORDS SUMMARY | 2022-11-01 20:14 | XMS REPORT | Continuity of Care Document ---
:1970 Author Organization [facility] t Address [address] [place] [address] Care Team Providers Name Role Phone SHARPLESS Primary Care Physician Unavailable ETTA NAVARRETE Attending Clinician Unavailable ETTA NAVARRETE Attending Clinician Unavailable Latosha PEÑA, Jesus Silveira Attending Clinician Miguel Quinteros MD Attending Clinician Jenniffer Adam MD Attending Clinician Clifton PEÑA, Flavio Mosquera Attending Clinician [phone] Jesus Amos MD Attending Clinician Clif Barone DO Attending Clinician Kojo Tucker MD Attending Clinician Marco PEÑA, Derek Ross Attending Clinician Marshall Gage MD Attending Clinician oRman BOYLE, Omayra Attending Clinician Ac Phillips CRNA Attending Clinician [phone] MA Attending Clinician Unavailable Ab Pierre MA Attending Clinician Unavailable MONIKA SNELL Attending Clinician Unavailable Mery PEÑA, Rosie Freitas Attending Clinician Monika Snell MD Attending Clinician Valerie Caballero MD' Attending Clinician [phone] ETTA NAVARRETE Admitting Clinician Unavailable JENNIFFER ADAM Admitting Clinician Unavailable ROSIE ORDONEZ Admitting Clinician Unavailable Payers Payer Name Policy Type Policy Number Effective Date Expiration Date [facility] [id number] 2014 00:00:00 PRETP OUT OF STATE BC [id number] [facility] [id number] 2020 00:00:00 POS/PPO/EPO Problems Condition Condition Condition Status Onset Resolution Last Treating Co mments Source Name Details Category Date Date Treatment Clinician Date 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:00: Hospita diabetes diabetes 00 l mellitus mellitus 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 Acute Acute Disease Active 2021-10 Methodi respirator respirator 12-20 y failure y failure 00:00: Hosp korina with with 00 l hypoxia hypoxia 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 Added automatic ally from request for surgery [id number] Shortness Shortness Disease Active 2021-10 Overview: Methodi of breath of breath 2-08 Formattin s t 00:00: g of this Hospita 00 note l might be different from the original. Added automatic ally from request for surgery [id number] Angina Angina Disease Active 2021-10 Methodi pectoris pectoris 1-29 st 00:00: Hospita 00 l Ischemic Ischemic Disease Active Metho di cardiomyop cardiomyop 9-13 st athy athy 00:00: Hospita 00 l CAD in CAD in Disease Active Methodi tuolumne tuolumne 6-14 st artery artery 00:00: Hospita 00 [...] troponin troponin 4-13 [facility] Hypomagnes Hypomagnes Disease Active C [facility] emia emia 4-13 [facility] Leucocytos Leucocytos Disease Active C [facility] is is 4-13 [facility] Center Elevated Elevated Disease Active [facility] procalcito procalcito 4-13 Mar[facility]u kes ric ric 00:00: Medical 00 Center 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 UPDATED BY ICD10 SNOMED/IM O UPDATES Pain, Pain, Diagnosis Active Common joint, joint, Spirit shoulder, shoulder, - CH I right right [facility] Subacromia Subacromia Diagnosis Active Common l bursitis l bursitis Sp lance of right of right - [facility] shoulder shoulder St joint joint [facility] Hypertensi Hypertensi Disease Active C HI St on on [facility] Uncontroll Uncontroll Disease Active C HI St ed type 2 ed type 2 Heath s diabetes diabetes Medica l mellitus mellitus Center with with hyperglyce hyperglyce abelardo abelardo Allergies, Adverse Reactions, Alerts Allergy Allergy Status Severity Reaction(s) Onset Inactive Treating Comm ents Source Name Type Date Date Clinician NO KNOWN Allergy Active [facility] ALLERGIE S Family History Family Member Diagnosis Comments Start Date Stop Date Source Natural father Heart attack [facility] Natural father Heart failure [facility] Social History Social Habit Start Date Stop Date Quantity Comments Source History [facility] Alcohol intake 2022-10-19 2022-10-19 Ex-drinker Spiritism 00:00:00 00:00:00 (finding) [facility] Cigarettes smoked 2022-04-11 2022-04-11 [facility] current (pack per 00:00:00 00:00:00 Hospita l day) - Reported Cigarette 2022-04-11 2022-04-11 [facility] pack-years 00:00:00 00:00:00 Hospital History [facility] 2022-02-08 2022-02-[address] [facility] Transport Med 00:00:00 00:00:[address] History [facility] 2022-02-08 2022-02-[address] [facility] Housing Unable to 00:00:00 00:00:00 Medical Center Pay History [facility] 2022-02-08 2022-02-[address] [facility] Housing Places 00:00:00 00:00:00 Medical Ce nter Lived History [facility] 2022-02-08 2022-02-[address] [facility] Homeless 00:00:00 00:00:00 Medical Center Last Year Tobacco use and 2015-05-12 2015-05-[address] Marilu kes exposure 00:00:00 00:00:00 Medical Center History of tobacco 2005-10-08 2008-10-09 Cigar Smoker Meth odist use 00:00:00 00:00:00 Hospital Sex Ass[birth year] At [birth year] ROBERT Julio 00:00:00 00:00:00 Medical Center Smoking Status Start Date Stop Date Source Ex-smoker 2022-04-11 00:00:00 2022-04-11 00:00:00 [facility] Medications Ordered Filled Start Stop Current Ordering Indication Dosage Frequency Signature Comments Components Source Medication Medication Date Date Medication? Clinician (SIG) Name Name montelukast Yes 10mg QD Take 1 Meth stewart (SINGULAIR) 1-03 tablet (10 st 10 mg 10:11: mg total) Hospita tablet 40 by mouth l nightly. timolol Yes 1[drp] Q.5D Administer Me thodi (TIMOPTIC) 1-[address] 0.5 % 10:11: into the Hospita ophthalmic 40 left eye 2 l solution (two) times a day. aspirin Yes 81mg QD Take 1 Methodi (ECOTRIN) 1-03 tablet (81 st 81 MG 10:11: mg total) Hospita enteric 40 by mouth l coated daily. tablet dapaglifloz Yes 1{tbl} Q2D Take 1 Me thodi in-metformi 1-[address] n 10-1,000 10:11: mouth Hospit a mg tablet, 40 every l IR & ER, other day. biphasic 24hr lisinopriL 2021-10- Yes 5mg QD Take 1 Meth stewart (PRINIVIL) 2-30 - tablet (5 st 5 mg tablet 00:00: 05:59 mg total) Hospita 00 :00 by mouth l daily. metoprolol 2021-10- Yes 12.5mg QD Take 0.5 Methodi succinate 2-30 12-[address] XL 00:00: 05:59 (12.5 mg Hospita (TOPROL-XL) 00 :00 total) by l 25 mg 24 hr mouth tablet daily. digOXIN 2021-10- Yes 125ug QD Take 1 Method i (LANOXIN) 2-30 - tablet st 125 mcg 00:00: 05:59 (125 mcg Hospi ta (0.125 mg) 00 :00 total) by l tablet mouth daily. spironolact 2021-10- Yes 12.5mg QD Take 0.5 Methodi one 12-[address] (ALDACTONE) 00:00: 05:59 (12.5 mg H ospita 25 MG 00 :00 total) by l tablet mouth daily. pantoprazol 2021-10- Yes 40mg QD Take 1 Met hodi e 01-30 tablet (40 st (PROTONIX) 00:00: 05:59 mg total) H ospita 40 MG EC 00 :00 by mouth l tablet daily for 30 days. sacubitriL- 2021-10- No 1{tbl} Q.5D Take 1 M ethodi valsartan - tablet by st (ENTRESTO) 16:14: 00:00 mouth 2 Hos ernesto 49-51 mg 46 :00 (two) l tablet per times a tablet day. insulin 2021-10 Yes 8U QD Inject 8 Method i glargine-yf - Units st gn 00:00: under the Hospita ([facility],in 00 skin l sulin daily. glarg-yfgn, Pen) 100 unit/mL (3 mL) insulin pen pen needle, 2021-10 Yes 1{each} QD 1 each M ethodi diabetic 32 2- daily. st gauge x 00:00: Hospita 03/13" 00 l needle mexiletine 2021-10- Yes 150mg Q.[id number] Take 1 Methodi (MEXITIL) 10-[id number] 150 MG 00:00: 05:59 3D (150 mg Hospita capsule 00 :00 total) by l mouth every 8 (eight) hours. torsemide 2021-10- Yes 40mg Q.5D Take 2 Metho di (DEMADEX) -[address] 20 MG 00:00: 05:59 (40 mg Hospita tablet 00 :00 total) by l mouth 2 (two) times a day. magnesium 2021-10- Yes 400mg Q.5D Take 1 Meth stewart oxide 12-[address] (MAG-OX) 00:00: 05:59 (400 mg Hospi ta 400 mg 00 :00 total) by l (241.3 mg mouth 2 magnesium) (two) tablet times a day. ferrous 2021-10- Yes 325mg Q.5D Take 1 Method i sulfate 325 11-[address] (65 FE) MG 00:00: 05:59 (325 mg Hos ernesto tablet 00 :00 total) by l mouth 2 (two) times a day with meals for 30 days. spironolact 2021-10 No 25mg QD Take 1 Met hodi one 11-26 tablet (25 st (ALDACTONE) 10:37: 00:00 mg total) Hospita 25 MG 05 :00 by mouth l tablet daily. spironolact 2021-10 No 25mg QD Take 1 Met hodi one 11-26 tablet (25 st (ALDACTONE) 10:37: 00:00 mg total) Hospita 25 MG 05 :00 by mouth l tablet daily. sacubitril/ 2021-10 Yes Take by Met hodi valsartan 11-[address] (ENTRESTO 09:49: Hospita ORAL) 08 l pioglitazon 2021-10 Yes 15mg QD Take 1 Meth stewart e (ACTOS) 0-03 tablet (15 st 15 MG 00:00: mg total) Hospita tablet 00 by mouth l daily. pioglitazon 2021-10 No 15mg QD Take 1 Met hodi e (ACTOS) 0-03 10-26 tablet (15 st 15 MG 00:00: 00:00 mg total) Hospit a tablet 00 :00 by mouth l daily. niacin Yes 500mg QD Take 1 Methodi (NIASPAN) 07-[address] 500 MG CR 00:00: (500 mg Hospi ta tablet 00 total) by l mouth nightly. niacin 2021- No 500mg QD Take 1 Methodi (NIASPAN) 07-[address] 500 MG CR 00:00: 00:00 (500 mg Hosp korina tablet 00 :00 total) by l mouth nightly. brimonidine Yes INSTILL 1 M ethodi (ALPHAGAN) 9-[address] 0.2 % 00:00: EACH EYE Hospita ophthalmic 00 THREE l solution TIMES DAILY brimonidine Yes 1[drp] Q.5D Administer Methodi (ALPHAGAN) 9-[address] 0.2 % 00:00: both eyes Hospita ophthalmic 00 2 (two) l solution times a day. atorvastati 2021-0 Yes 40mg QD Take 40 mg Methodi n (LIPITOR) 6-[address] 40 mg 00:00: daily. Hospita tablet 00 l furosemide 0 Yes 40mg QD Take 1 Metho di (LASIX) 40 04-04 tablet (40 st mg tablet 00:00: mg total) Hos ernesto 00 by mouth l daily. atorvastati 2021-0 Yes 40mg QD Take 1 Meth stewart n (LIPITOR) 04-04 tablet (40 st 40 mg 00:00: mg total) Hospita tablet 00 by mouth l nightly. furosemide 2021-2021- No 40mg QD Take 1 Meth stewart (LASIX) 40 04-04- tablet (40 st mg tablet 00:00: 00:00 mg total) Ho spita 00 :00 by mouth l daily. lisinopriL 2021- No 5mg Take 1 Meth stewart (PRINIVIL) 04-04 tablet (5 st 5 mg tablet 00:00: 00:00 mg total) Hospita 00 :00 by mouth l as needed. lisinopriL 2021-0 2- No 5mg Take 1 Meth stewart (PRINIVIL) 04-04 tablet (5 st 5 mg tablet 00:00: 00:00 mg total) Hospita 00 :00 by mouth l as needed. Farxiga 10 2021- 2022- No 10mg QD Take 10 mg Methodi mg tablet 03-[address] 00:00: 00:00 daily. Hospita 00 :00 l Farxiga 10 2021-0 2- No 10mg QD Take 10 mg Methodi mg tablet 03-[address] 00:00: 00:00 daily. Hospita 00 :00 l clopidogreL 2021-0 2023- No 75mg QD Take 75 mg Methodi (PLAVIX) 75 4-16 04-[address] mg tablet 00:00: 04:59 daily. Hospi ta 00 :00 l clopidogreL 2021-0 2023- No 75mg QD Take 75 mg Methodi [...] dical 00 :00 by mouth Center daily. aspirin 81 2022- No 81mg QD Take [...] 0.2-0.5 % 51 daily. Center ophthalmic solution brimonidine 0 Yes 1[drp] Q.5D [address] -timoloL 4-15 (two) [facility]ukes (COMBIGAN) 15:45: times Medica l 0.2-0.5 % 51 daily. Center ophthalmic solution metFORMIN 2021- No 500mg Take [address] (GLUCOPHAGE 4-15 04-15 mg by [facility] ) 500 MG 14:21: 00:00 mouth 2 Medic al tablet 15 :00 (two) Center times daily with breakfast and dinner. metFORMIN 2021- No 500mg Take 500 CH [...] Center (six) hours as needed for Pain. ibuprofen 2021- No 200mg Take 200 CH [...] (two) times a day with meals. metFORMIN Yes 1000mg Take [address] (GLUCOPHAGE 4-15 tablet [facility] ) 1000 MG 00:00: (1,000 mg Med ical tablet 00 total) by Center mouth 2 (two) times daily with breakfast and dinner. metFORMIN Yes 1000mg Take [address] (GLUCOPHAGE [...] tablet 00 :00 by mouth Center daily. atorvastati 2022- No 40mg QD Take [address] n (LIPITOR) -15 -15 tablet (40 L ukes 40 MG 00:00: 23:59 mg total) Medica l tablet 00 :00 by mouth Center nightly. carvediloL 2022- No 12.5mg Q.5D Take [address] (COREG) -15 -15 tablet [facility] 12.5 MG 00:00: 23:59 (12.5 mg Medic al tablet 00 :00 total) by Center mouth 2 (two) times daily. furosemide 2022- No 40mg Take [address] (LASIX) 40 -15 -15 tablet (40 Marilu kes MG tablet 00:00: 23:59 mg total) Me dical 00 :00 by mouth 2 Center (two) times daily. glipiZIDE 2022- No 5mg Take 1 [facility]I S t (GLUCOTROL) -15 -15 tablet (5 Marilu kes 5 MG tablet 00:00: 23:59 mg total) Medical 00 :00 by mouth 2 Center (two) times daily before meals. lisinopriL 2022- No 5mg QD Take [address] (PRINIVIL,Z -15 -15 tablet (5 Marilu kes ESTRIL) 5 00:00: 23:59 mg total) Me dical MG tablet 00 :00 by mouth Center daily. carvediloL 2021- No 12.5mg Q.5D Take 1 Me thodi (COREG) 4-15 12-[address] 12.5 MG 00:00: 00:00 (12.5 mg Hospi ta tablet 00 :00 total) by l mouth 2 (two) times a day with meals. Ibuprofen Ibuprofen Yes Marty 1 tablet Common Rodriguez with food Spirit or milk as - [facility]I needed [facility] Vital Signs Vital Name [...] WEIGHT 2020-10-12 13:29:00 63.504 kg Systolic blood 2022-10-31 16:08:00 102 mm[Hg] Method [facility] pressure Diastolic blood 2022-10-31 16:08:00 62 mm[Hg] [facility] pressure Heart rate 2022-10-31 16:08:00 89 /min [facility] Body height 2022-10-31 16:08:00 165.1 cm [facility] Body weight 2022-10-31 16:08:00 48.081 kg [facility] BMI 2022-10-31 16:08:00 17.64 kg/m2 [facility] Respiratory rate 2022-10-26 21:28:00 18 /min [facility] Oxygen saturation in 2022-10-26 21:28:00 99 /min [facility] Arterial blood by Pulse oximetry Body temperature 2022-10-26 17:22:06 36.22 Rachell [facility] Systolic blood 2022-09-26 15:49:00 123 mm[Hg] Method [facility] pressure Diastolic blood 2022-09-26 15:49:00 75 mm[Hg] [facility] pressure Heart rate 2022-09-26 15:49:00 98 /min [facility] Body height 2022-09-26 15:49:00 165.1 cm [facility] Body weight 2022-09-26 15:49:00 70.308 kg [facility] BMI 2022-09-26 15:49:00 25.79 kg/m2 [facility] Systolic blood 2022-02-10 12:00:00 127 mm[Hg] [facility] Diastolic blood 2022-02-10 12:00:00 79 mm[Hg] [facility] Heart rate 2022-02-10 12:00:00 85 /min [facility] Body temperature 2022-02-10 12:00:00 36.39 Rachell [facility] Respiratory rate 2022-02-10 12:00:00 18 /min [facility] Oxygen saturation in 2022-02-10 12:00:00 96 /min [facility] Arterial blood by Medical Ce nter Pulse oximetry Body height 2022-02-08 05:00:00 167.6 cm [facility] Body weight 2022-02-08 05:00:00 67.178 kg [facility] BMI 2022-02-08 05:00:00 23.90 kg/m2 [facility] Procedures Procedure Date / Time Performing Clinician Source Performed POC GLUCOSE 2022-10-26 18:22:[address] [facility] spital POC GLUCOSE 2022-10-26 13:40:[address] [facility] spital POC GLUCOSE 2022-10-26 02:58:[address] [facility] spital POC GLUCOSE 2022-10-25 23:35[facility] 2022-10-25 18:30:00 [facility]10-25 14:18:00 [facility] 2022-10-25 10:16:00 [facility] MAGNESIUM LEVEL 2022-10-25 10:16:00 [facility] PHOSPHORUS LEVEL 2022-10-25 10:16:00 [facility] CBC WITH PLATELET AND 2022-10-25 10:16:00 Kojo Tucker [facility] DIFFERENTIAL ESTIMATED GFR 2022-10-25 10:16:00 [facility] SMEAR REVIEW 2022-10-25 10:16:00 Kojo Tucker spital POC GLUCOSE 2022-10-25 03:41:00 [facility] 2022-10-25 00:24:00 [facility] CBC WITH PLATELET AND 2022-10-24 19:02:00 [facility] DIFFERENTIAL SMEAR REVIEW 2022-10-24 19:02:00 [facility] POC GLUCOSE 2022-10-24 17:50:00 [facility]SE 2022-10-24 14:02:00 [facility] HEMOGLOBIN & HEMATOCRIT 2022-10-24 12:04:00 [facility] BASIC METABOLIC PANEL 2022-10-24 12:03:00 [facility] MAGNESIUM LEVEL 2022-10-24 12:03:00 [facility] PHOSPHORUS LEVEL 2022-10-24 12:03:00 [facility] C-PEPTIDE 2022-10-24 12:03:00 [facility] ESTIMATED GFR 2022-10-24 12:03:00 [facility] POC GLUCOSE 2022-10-24 03:08:00 [facility] POC GLUCOSE 2022-10-23 23:46:00 [facility] POC GLUCOSE 2022-10-23 18:07:00 [facility] XR CHEST 1 VW PORTABLE 2022-10-23 15:35:32 Demetra Ngo [facility] POC GLUCOSE 2022-10-23 13:26:00 [facility] O2 SATURATION, VENOUS 2022-10-23 11:13:00 Demetra Ngo [facility][1] BASIC METABOLIC PANEL 2022-10-23 11:13:00 [facility] MAGNESIUM LEVEL 2022-10-23 11:13:00 [facility] PHOSPHORUS LEVEL 2022-10-23 11:13:00 [facility] HEMOGLOBIN & HEMATOCRIT 2022-10-23 11:13:00 [facility] ESTIMATED GFR 2022-10-23 11:13:00 [facility] POC GLUCOSE 2022-10-22 23:20:00 [facility] POC GLUCOSE 2022-10-22 17:18:00 [facility] POC GLUCOSE 2022-10-22 14:13:00 [facility] XR CHEST 1 VW PORTABLE 2022-10-22 13:32:15 Demetra Ngo [facility] O2 SATURATION, VENOUS 2022-10-22 11:21:00 Demetra Ngo [facility][1] MAGNESIUM LEVEL 2022-10-22 11:21:00 [facility] PHOSPHORUS LEVEL 2022-10-22 11:21:00 [facility] BASIC METABOLIC PANEL 2022-10-22 11:21:00 [facility] NATRIURETIC PEPTIDE 2022-10-22 11:21:00 [facility] LACTIC ACID LEVEL 2022-10-22 11:21:00 [facility] EST[facility] 2022-10-22 [facility] POC GLUCOSE 2022-10-21 23:15:00 [facility] POC GLUCOSE 2022-10-21 17:50:00 [facility] XR CHEST 1 VW PORTABLE 2022-10-21 14:21:00 Demetra Ngo [facility] POC GLUCOSE 2022-10-21 14:11:00 [facility] O2 SATURATION, VENOUS 2022-10-21 11:13:00 Demetra Ngo [facility][1] MAGNESIUM LEVEL 2022-10-21 11:13:00 [facility] PHOSPHORUS LEVEL 2022-10-21 11:13:00 [facility] DIGOXIN LEVEL 2022-10-21 11:13:00 Kaushal Bustillo spital [place] CBC WITH PLATELET AND 2022-10-21 11:13:00 Keny [facility]OL[facility] 2022-10-21 11:13:00 Keny [facility] B NATRIURETIC PEPTIDE 2022-10-21 11:13:00 Keny [facility] LACTIC ACID LEVEL 2022-10-21 11:13:00 [facility] EST[facility] 2022-10-21 11:13:00 Kaushal Bustillo spital [place] SMEAR REVIEW 2022-10-21 11:13:00 Kaushal Bustillo [facility] Vinc[facility]hini POC GLUCOSE 2022-10-21 03:05:00 [facility] POC GLUCOSE 2022-10-21 00:07:00 [facility] POC GLUCOSE 2022-10-20 18:41:00 [facility] XR CHEST 1 VW PORTABLE 2022-10-20 16:20:00 Demetra Ngo [facility] POC GLUCOSE 2022-10-20 15:45:00 [facility] POC GLUCOSE 2022-10-20 14:57:00 [facility] O2 SATURATION, VENOUS 2022-10-20 11:41:00 Demetra Ngo [facility][1] MAGNESIUM LEVEL 2022-10-20 11:41:00 [facility] PHOSPHORUS LEVEL 2022-10-20 11:41:00 [facility] C-PEPTIDE 2022-10-20 11:41:00 [facility] WITH PLATELET AND 2022-10-20 11:41:00 Keny, [facility] DIFFERENTIAL [place] BASIC METABOLIC PANEL 2022-10-20 11:41:00 Keny [facility] HEPATIC FUNCTION PANEL 2022-10-20 11:41:00 [facility] NATRIURETIC PEPTIDE 2022-10-20 11:41:00 [facility] LACTIC ACID LEVEL 2022-10-20 11:41:00 Keny [facility] FERRITIN LEVEL 2022-10-20 11:41:00 [facility] RETICULOCYTE COUNT 2022-10-20 11:41:00 [facility] TOTAL IRON BINDING 2022-10-20 11:41:00 [facility] CAPACITY ESTIMATED GFR 2022-10-20 11:41:00 Kaushal Bustillo spierickson Monet SMEAR REVIEW 2022-10-20 11:41:00 [facility] RED BLOOD CELLS 2022-10-20 04:26:00 [facility] POC GLUCOSE 2022-10-20 03:13:00 [facility] TTE LIMITED W CONTRAST, W 2022-10-20 00:19:00 [facility] DOPPLER ([id number]) POC GLUCOSE 2022-10-20 00:11:00 [facility] TYPE AND SCREEN 2022-10-19 19:36:00 [facility] PREPARE RBC 2022-10-19 19:36:00 [facility] POC GLUCOSE 2022-10-19 18:03:00 [facility] XR CHEST 1 VW PORTABLE 2022-10-19 15:54:25 [facility] POC GLUCOSE 2022-10-19 14:40:00 [facility] MAGNESIUM LEVEL 2022-10-19 13:54:00 Demetra Ngo [facility] O2 SATURATION, VENOUS 2022-10-19 13:54:00 Demetra Ngo [facility][1] PHOSPHORUS LEVEL 2022-10-19 13:54:00 Demetra Ngo [facility] B NATRIURETIC PEPTIDE 2022-10-19 13:54:00 Kaushal Bustillo [facility] Vincrohini BILIRUBIN DIRECT 2022-10-19 13:54:00 [facility] ESTIM[facility] GFR 2022-10-19 13:54:00 [facility] COMPREHENSIVE METABOLIC 2022-10-19 13:54:00 [facility] PANEL CBC WITH PLATELET AND 2022-10-19 13:54:00 [facility] DIFFERENTIAL SMEAR REVIEW 2022-10-19 13:54:00 [facility] POC GLUCOSE 2022-10-19 02:56:00 [facility] POC GLUCOSE 2022-10-18 23:48:00 [facility] POC GLUCOSE 2022-10-18 17:52:00 [facility] XR CHEST 1 VW PORTABLE 2022-10-18 15:20:00 Demetra Ngo [facility] POC GLUCOSE 2022-10-18 13:43:00 [facility] CBC WITH PLATELET AND 2022-10-18 12:18:00 Demetra Ngo [facility] DIFFERENTIAL Desai COMPREHENSIVE METABOLIC 2022-10-18 12:18:00 Demetra Ngo [facility] PANEL Desai MAGNESIUM LEVEL 2022-10-18 12:18:00 [facility]2 SATURATION, VENOUS 2022-10-18 12:18:00 Demetra Ngo [facility] Desai PHOSPHORUS LEVEL 2022-10-18 12:18:00 Demetra Ngo [facility] PROTHROMBIN TIME WITH INR 2022-10-18 12:18:00 Brandyn Ngo [facility] ESTIMATED GFR 2022-10-18 12:18:00 [facility] POC GLUCOSE 2022-10-18 03:12:00 [facility] POC GLUCOSE 2022-10-18 00:05:00 [facility] BASIC METABOLIC PANEL 2022-10-17 19:21:00 [facility] ESTIMATED GFR 2022-10-17 19:21:00 [facility] H ospital POC GLUCOSE 2022-10-17 18:01:00 [facility] [facility] POC GLUCOSE 2022-10-17 13:50:00 [facility] XR CHEST 1 VW PORTABLE 2022-10-17 12:42:22 Demetra Ngo [facility] CLOSTRIDIUM DIFFICILE 2022-10-17 11:12:00 [facility] TOXIN GENE (QUALITATIVE [place] REAL-TIME PCR) BASIC METABOLIC PANEL 2022-10-17 11:01:00 [facility] CBC WITH PLATELET AND 2022-10-17 11:01:00 [facility] DIFFERENTIAL [place] MAGNESIUM LEVEL 2022-10-17 11:01:00 [facility] PHOSPHORUS LEVEL 2022-10-17 11:01:00 [facility] IONIZED CALCIUM 2022-10-17 11:01:00 [facility] PARTIAL THROMBOPLASTIN 2022-10-17 11:01:00 [facility] TIME (PTT) [place] ESTIMATED GFR 2022-10-17 11:01:00 Rocky [facility]ital SMEAR REVIEW 2022-10-17 11:01:00 Rocky Sinha [facility]ital POC GLUCOSE 2022-10-17 10:26:00 [facility] CBC WITH PLATELET AND 2022-10-17 09:16:00 Demetra Ngo [facility] DIFFERENTIAL [place] COMPREHENSIVE METABOLIC 2022-10-17 09:16:00 Demetra Ngo [facility] PANEL [facility] MAGNESIUM LEVEL 2022-10-17 09:16:00 Demetra Ngo [facility] O2 SATURATION, VENOUS 2022-10-17 09:16:00 Demetra Ngo [facility][1] PHOSPHORUS LEVEL 2022-10-17 09:16:00 Demetra Ngo [facility] PROTHROMBIN TIME WITH INR 2022-10-17 09:16:00 Brandyn Ngo [facility] ESTIMATED GFR 2022-10-17 09:16:00 [facility] 2022-10-17 07:09:00 [facility] PARTIAL THROMBOPLASTIN 2022-10-17 04:36:00 [facility] TIME (PTT) [facility] POTASSIUM LEVEL 2022-10-17 04:36:00 Carmelita [facility] MAGNESIUM LEVEL 2022-10-17 04:36:00 Carmelita [facility] PHOSPHORUS LEVEL 2022-10-17 04:36:00 Carmelita [facility] IONIZED CALCIUM 2022-10-17 04:36:00 Carmelita, [facility] POC GLUCOSE 2022-10-17 02:36:00 [facility] POC GLUCOSE 2022-10-16 22:41:00 [facility] BASIC METABOLIC PANEL 2022-10-16 22:31:[address] [facility] MAGNESIUM LEVEL 2022-10-16 22:31:00 Valerie [facility]ital PHOSPHORUS LEVEL 2022-10-16 22:31:00 [facility]CI[facility] 2022-10-16 22:31:00 Joni Padilla ospital ESTIMATED GFR 2022-10-16 22:31:00 Joni Padilla ospital O2 SATURATION, VENOUS 2022-10-16 21:41:00 Demetra Ngo [facility] Desai POC GLUCOSE 2022-10-16 19:43:00 [facility] [place] < 1 HOUR 2022-10-16 18:45:00 [facility] Spiritism Ho spital XR ABDOMEN 1 VW PORTABLE 2022-10-16 16:50:00 [facility] XR CHEST 1 VW PORTABLE 2022-10-16 16:45:00 [facility] POC GLUCOSE 2022-10-16 14:59:00 [facility] XR CHEST 1 VW PORTABLE 2022-10-16 11:08:00 [facility] PARTIAL THROMBOPLASTIN 2022-10-16 10:44:00 Rocky Sinha [facility] TIME (PTT) POC GLUCOSE 2022-10-16 10:20:00 [facility] PARTIAL THROMBOPLASTIN 2022-10-16 07:29:00 Rocky schwartz [facility] TIME (PTT) POC GLUCOSE 2022-10-16 06:29:00 [facility] CBC WITH PLATELET AND 2022-10-16 06:07:00 [facility] DIFFERENTIAL O2 SATURATION, VENOUS 2022-10-16 06:07:00 [facility] LIDOCAINE LEVEL 2022-10-16 06:07:00 Manuel Kirby spital PARTIAL THROMBOPLASTIN 2022-10-16 06:07:00 Jesus Amos [facility] TIME (PTT) IONIZED CALCIUM 2022-10-16 06:07:00 Rocky Sinha ospital COMPREHENSIVE METABOLIC 2022-10-16 06:07:00 Rocky Sinha [facility] PANEL MAGNESIUM LEVEL 2022-10-16 06:07:00 UdRocky schwartz [facility] ospital ESTIMATED GFR 2022-10-16 06:07:00 [facility] Rocky [facility] ospital PHOSPHORUS LEVEL 2022-10-16 06:07:00 [facility] SMEAR REVIEW 2022-10-16 06:07:00 [facility] ESTIMATED GFR 2022-10-16 06:05:00 Eric Delgadillo [facility] POC GLUCOSE 2022-10-16 02:40:00 [facility] PARTIAL THROMBOPLASTIN 2022-10-15 22:51:[address] [facility] TIME (PTT) BASIC METABOLIC PANEL 2022-10-15 22:51:00 [facility] MAGNESIUM LEVEL 2022-10-15 22:51:00 [facility] ospital PHOSPHORUS LEVEL 2022-10-15 22:51:00 [facility] IONIZED CALCIUM 2022-10-15 22:51:00 [facility] ospital ESTIMATED GFR 2022-10-15 22:51:00 [facility] ospital POC GLUCOSE 2022-10-15 22:51:00 [facility] POC GLUCOSE 2022-10-15 18:48:00 [facility] O2 SATURATION, VENOUS 2022-10-15 17:57:00 [facility] POC GLUCOSE 2022-10-15 14:57:00 [facility] PARTIAL THROMBOPLASTIN 2022-10-15 14:54:00 Ruthy Luna [facility] TIME (PTT) XR CHEST 1 VW PORTABLE 2022-10-15 12:48:28 [facility] POC GLUCOSE 2022-10-15 11:31:00 [facility] ARTERIAL BLOOD GAS 2022-10-15 09:18:00 [facility] CBC WITH PLATELET AND 2022-10-15 08:16:00 [facility] DIFFERENTIAL LACTIC ACID LEVEL 2022-10-15 08:16:00 [facility] LDH 2022-10-15 08:16:00 [facility] O2 SATURATION, VENOUS 2022-10-15 08:16:00 [facility] MAGNESIUM LEVEL 2022-10-15 08:16:00 [facility] PROTHROMBIN TIME WITH INR 2022-10-15 08:16:00 [facility] LIDOCAINE LEVEL 2022-10-15 08:16:00 [facility] spital COMPREHENSIVE METABOLIC 2022-10-15 08:16:00 [facility] PANEL ESTIMATED GFR 2022-10-15 08:16:00 [facility] PHOSPHORUS LEVEL 2022-10-15 08:16:00 [facility] PARTIAL THROMBOPLASTIN 2022-10-15 08:16:00 [facility] TIME (PTT) SMEAR REVIEW 2022-10-15 08:16:00 [facility] POC GLUCOSE 2022-10-15 06:16:00 [facility] COMPREHENSIVE METABOLIC 2022-10-15 04:17:00 [facility] PANEL ESTIMATED GFR 2022-10-15 04:17:00 [facility] POC GLUCOSE 2022-10-15 03:02:00 [facility] LACTIC ACID LEVEL 2022-10-14 23:31:00 [facility] O2 SATURATION, VENOUS 2022-10-14 23:31:00 [facility] POC GLUCOSE 2022-10-14 23:14:00 [facility] PARTIAL THROMBOPLASTIN 2022-10-14 21:20:00 [facility] TIME (PTT) POC GLUCOSE 2022-10-14 19:16:00 [facility] CARCINOEMBRYONIC ANTIGEN 2022-10-14 18:57:00 [facility] ([facility]) ALPHA FETOPROTEIN 2022-10-14 18:57:00 [facility] IONIZED CALCIUM 2022-10-14 18:57:00 [facility] [place] MAGNESIUM LEVEL 2022-10-14 18:57:00 [facility] ospital PHOSPHORUS LEVEL 2022-10-14 18:57:00 [facility] CANCER ANTIGEN 19-9 2022-10-14 18:57:00 [facility] POTASSIUM LEVEL 2022-10-14 18:57:00 [facility] ospital PARTIAL THROMBOPLASTIN 2022-10-14 15:25:00 Rocky Sinha [facility] TIME (PTT) POC GLUCOSE 2022-10-14 13:55:00 [facility] XR CHEST 1 VW PORTABLE 2022-10-14 11:51:00 [facility] POC GLUCOSE 2022-10-14 11:14:00 [facility] COMPREHENSIVE METABOLIC 2022-10-14 07:42:00 [facility] PANEL LACTIC ACID LEVEL 2022-10-14 07:42:00 [facility] LDH 2022-10-14 07:42:00 [facility] PHOSPHORUS LEVEL 2022-10-14 07:42:00 [facility] LIDOCAINE LEVEL 2022-10-14 07:42:[address] [facility] spital MAGNESIUM LEVEL 2022-10-14 07:42:00 Rocky Sinha ospital ESTIMATED GFR 2022-10-14 07:42:00 [facility] CBC WITH PLATELET AND 2022-10-14 07:41:00 [facility] DIFFERENTIAL PARTIAL THROMBOPLASTIN 2022-10-14 07:41:00 [facility] TIME (PTT) IONIZED CALCIUM 2022-10-14 07:41:00 [facility] PROTHROMBIN TIME WITH INR 2022-10-14 07:41:00 [facility] ARTERIAL BLOOD GAS 2022-10-14 07:40:00 [facility] O2 SATURATION, VENOUS 2022-10-14 07:27:00 [facility] POC GLUCOSE 2022-10-14 06:34:00 [facility] POC GLUCOSE 2022-10-14 02:37:00 [facility] POC GLUCOSE 2022-10-13 23:20:00 [facility] US THORACENTESIS WITH 2022-10-13 22:08:57 Miller Reina [facility] IMAGING XR CHEST 1 VW PORTABLE 2022-10-13 21:57:29 Donte Cam [facility] BASIC METABOLIC PANEL 2022-10-13 20:26:00 [facility] MAGNESIUM LEVEL 2022-10-13 20:26:00 Rocky schwartz [facility] ospital PHOSPHORUS LEVEL 2022-10-13 20:26:00 [facility] IONIZED CALCIUM 2022-10-13 20:26:00 [facility] ESTIMATED GFR 2022-10-13 20:26:00 [facility] Rocky [facility] ospital SURGICAL PATHOLOGY REQUEST 2022-10-13 18:13:00 [facility] POC GLUCOSE 2022-10-13 17:32:00 [facility] COLONOSCOPY 2022-10-13 17:01:00 Derek Lara [facility] POC GLUCOSE 2022-10-13 13:28:00 [facility] POC GLUCOSE 2022-10-13 12:20:00 [facility] XR CHEST 1 VW PORTABLE 2022-10-13 12:08:14 [facility] XR ABDOMEN 1 VW PORTABLE 2022-10-13 12:08:00 Leticia Pastor [facility] PARTIAL THROMBOPLASTIN 2022-10-13 10:55:00 Ruthy Luna [facility] TIME (PTT) POC GLUCOSE 2022-10-13 10:51:00 [facility] POC GLUCOSE 2022-10-13 07:28:00 [facility] LIDOCAINE LEVEL 2022-10-13 07:12:00 [facility] ARTERIAL BLOOD GAS 2022-10-13 07:12:00 [facility] CBC WITH PLATELET AND 2022-10-13 07:12:00 [facility] DIFFERENTIAL COMPREHENSIVE METABOLIC 2022-10-13 07:12:00 [facility] PANEL LACTIC ACID LEVEL 2022-10-13 07:12:00 [facility] LDH 2022-10-13 07:12:00 [facility] O2 SATURATION, VENOUS 2022-10-13 07:12:00 [facility] PHOSPHORUS LEVEL 2022-10-13 07:12:00 [facility] MAGNESIUM LEVEL 2022-10-13 07:12:00 [facility] ESTIMATED GFR 2022-10-13 07:12:00 [facility] IONIZED CALCIUM, ARTERIAL 2022-10-13 07:12:00 [facility] POC GLUCOSE 2022-10-13 03:24:00 [facility] PARTIAL THROMBOPLASTIN 2022-10-13 01:39:00 [facility] TIME (PTT) URINE CULTURE 2022-10-13 00:23:00 [facility] POC GLUCOSE 2022-10-12 23:38:00 [facility] XR CHEST 1 VW PORTABLE 2022-10-12 22:56:39 Dora Desai [facility] URINALYSIS SCREEN AND 2022-10-12 22:17:00 [facility] MICROSCOPY, WITH REFLEX TO CULTURE CT CHEST WO CONTRAST 2022-10-12 19:45:44 [facility] HEAD WO CONTRAST 2022-10-12 19:45:32 [facility] [place] POC GLUCOSE 2022-10-12 18:47:00 Clif Barone [facility] ESTIMATED GFR 2022-10-12 18:19:00 Rocky schwartz [facility] ospital PARTIAL THROMBOPLASTIN 2022-10-12 18:17:00 [facility] TIME (PTT) PHOSPHORUS LEVEL 2022-10-12 18:17:00 [facility] IONIZED CALCIUM 2022-10-12 18:17:00 Rocky schwartz [facility] BASIC METABOLIC PANEL 2022-10-12 18:17:00 Rocky schwartz [facility] MAGNESIUM LEVEL 2022-10-12 18:17:00 [facility] ospital ESTIMATED GFR 2022-10-12 18:17:00 [facility] POC GLUCOSE 2022-10-12 14:53:00 Jesus Amos Ho spital XR CHEST 1 VW PORTABLE 2022-10-12 12:36:50 Dora Desai [facility] POC GLUCOSE 2022-10-12 11:00:00 Jesus Amos Ho spital LIDOCAINE LEVEL 2022-10-12 10:18:00 Manuel Kirby Ho spital PARTIAL THROMBOPLASTIN 2022-10-12 10:18:00 Jesus Amos [facility] TIME (PTT) O2 SATURATION, VENOUS 2022-10-12 07:24:00 [facility] ARTERIAL BLOOD GAS 2022-10-12 07:23:00 [facility] COMPREHENSIVE METABOLIC 2022-10-12 07:23:00 [facility] PANEL CBC WITH PLATELET AND 2022-10-12 07:23:00 [facility] DIFFERENTIAL MAGNESIUM LEVEL 2022-10-12 07:23:00 [facility] PHOSPHORUS LEVEL 2022-10-12 07:23:00 [facility] ESTIMATED GFR 2022-10-12 07:23:00 Rocky schwartz ospital LACTIC ACID LEVEL 2022-10-12 07:23:00 [facility] LDH 2022-10-12 07:23:00 Rocky schwartz ospital POC GLUCOSE 2022-10-12 06:49:00 Jesus Amos spital O2 SATURATION, VENOUS 2022-10-12 03:13:00 Karlos Beaver [facility] POC GLUCOSE 2022-10-12 02:55:00 Jesus Amos spital XR CHEST 1 VW PORTABLE 2022-10-12 02:06:11 [facility] POTASSI[facility] L[facility] 2022-10-12 01:41:00 [facility] Spirit[facility] spital PARTIAL THROMBOPLASTIN 2022-10-12 01:41:00 Jesus Amos [facility] TIME (PTT) CV INTRA AORTIC BALLOON 2022-10-12 00:55:54 Jesus Amos [facility] PUMP INSERTION BASIC METABOLIC PANEL 2022-10-11 23:07:00 Rocky schwartz [facility] MAGNESIUM LEVEL 2022-10-11 23:07:00 Rocky schwartz ospital PHOSPHORUS LEVEL 2022-10-11 23:07:00 [facility] IONIZED CALCIUM 2022-10-11 23:07:00 Rocky schwartz ospital ESTIMATED GFR 2022-10-11 23:07:00 Rocky schwartz ospital XR CHEST 1 VW PORTABLE 2022-10-11 23:00:38 Miller Reina [facility] POC GLUCOSE 2022-10-11 22:03:00 Jesus Amos spital ECG 12-LEAD 2022-10-11 20:49:12 Hector Low [facility] LIDOCAINE LEVEL 2022-10-11 20:03:00 Manuel Kirby spital POC GLUCOSE 2022-10-11 17:52:00 Jesus Amos spital CV SELECTIVE CORONARY 2022-10-11 16:54:39 Jesus Amos [facility] ANGIOGRAPHY TRANSFUSE RED BLOOD CELLS 2022-10-11 16:01:00 Nehemias Mae [facility] [place] XR CHEST 1 VW PORTABLE 2022-10-11 14:50:00 [facility] ABO AND RH CONFIRMATION BY 2022-10-11 14:06:00 Jesus Amos [facility] PROTOCOL POC GLUCOSE 2022-10-11 13:57:00 Jesus Amos spital MRSA PCR 2022-10-11 11:07:00 Leticia Pastor spital COMPREHENSIVE METABOLIC 2022-10-11 11:07:00 [facility] PANEL MAGNESIUM LEVEL 2022-10-11 11:07:00 [facility] PHOSPHORUS LEVEL 2022-10-11 11:07:00 [facility] ESTIMATED GFR 2022-10-11 11:07:00 Rocky Sinha ospital PROCALCITONIN 2022-10-11 11:07:00 Leticia Pastor spital IONIZED CALCIUM 2022-10-11 11:07:00 Tamra Lentz [facility] POC GLUCOSE 2022-10-11 11:06:00 Jesus Amos spital URINE CULTURE 2022-10-11 09:04:00 Parmjit Armstrong [facility] O2 SATURATION, VENOUS 2022-10-11 07:50:00 [facility] COVID-19 QUALITATIVE 2022-10-11 07:44:00 Cornel Lee [facility] RT-PCR LIDOCAINE LEVEL 2022-10-11 07:44:00 Manuel Kirby spital ARTERIAL BLOOD GAS 2022-10-11 07:44:00 HumbertoDora lyons [facility] CBC WITH PLATELET AND 2022-10-11 07:44:00 [facility] DIFFERENTIAL PROTHROMBIN TIME WITH INR 2022-10-11 07:44:00 [facility] PARTIAL THROMBOPLASTIN 2022-10-11 07:44:00 [facility] TIME (PTT) LACTIC ACID LEVEL 2022-10-11 07:44:00 [facility] SMEAR REVIEW 2022-10-11 07:44:00 Jesus Amos spital POC GLUCOSE 2022-10-11 07:36:00 Jesus Amos spital URINALYSIS SCREEN AND 2022-10-11 04:30:00 [facility] MICROSCOPY, WITH REFLEX TO CULTURE ARTERIAL BLOOD GAS 2022-10-11 02:50:00 Rocky Sinha [facility] POTASSIUM LEVEL 2022-10-11 02:50:00 [facility] MAGNESIUM LEVEL 2022-10-11 02:50:00 [facility] IONIZED CALCIUM 2022-10-11 02:50:00 [facility] PHOSPHORUS LEVEL 2022-10-11 02:50:00 [facility] POC GLUCOSE 2022-10-11 02:49:00 Jesus Amos spital PARTIAL THROMBOPLASTIN 2022-10-11 00:39:00 Manuel Kirby [facility] TIME (PTT) O2 SATURATION, VENOUS 2022-10-11 00:39:00 Ronaldo Mae [facility] [place] ARTL CATHJ/CANNULJ 2022-10-11 00:08:23 Miller Reina [facility] MNTR/TRANSFUSION SPX PRQ POC GLUCOSE 2022-10-10 23:39:00 Jesus Amos spital XR CHEST 1 VW PORTABLE 2022-10-10 23:00:56 [facility] [place] XR ABDOMEN 1 VW PORTABLE 2022-10-10 20:09:36 Rocky Sinha [facility] SPUTUM CULTURE 2022-10-10 19:45:00 Rocky Sinha ospital GRAM STAIN 2022-10-10 19:45:00 Rocky Sinha ospital US CHEST 2022-10-10 19:01:00 [facility] ARTERIAL BLOOD GAS 2022-10-10 18:31:00 [facility] POC GLUCOSE 2022-10-10 18:28:00 Jesus Amos spital TROPONIN T 2022-10-10 18:15:00 [facility] LACTIC ACID LEVEL 2022-10-10 18:15:00 [facility] HEPATIC FUNCTION PANEL 2022-10-10 18:15:00 [facility] IONIZED CALCIUM 2022-10-10 18:15:00 Rocky schwartz ospital MAGNESIUM LEVEL 2022-10-10 18:15:00 Rocky schwartz [facility] ospital PHOSPHORUS LEVEL 2022-10-10 18:15:00 [facility] Rocky [facility] POTASSIUM LEVEL 2022-10-10 18:15:00 Rocky Sinha ospital XR TUBE PLACEMENT CHEST 2022-10-10 17:47:31 Rocky Sinha [facility] ABD 1 VW PORTABLE US DUPLEX VENOUS LOWER 2022-10-10 17:39:00 [facility] EXTREMITY BILATERAL [place] TTE COMPLETE, WO CONTRAST, 2022-10-10 17:00:00 [facility] W DOPPLER ([id number]) shalomjanuary BLOOD CULTURE, AEROBIC & 2022-10-10 16:13:00 Rocky Sinha [facility] ANAEROBIC CBC WITH PLATELET AND 2022-10-10 15:51:00 Manuel Kirby [facility] DIFFERENTIAL SMEAR REVIEW 2022-10-10 15:51:00 Manuel Kirby BLOOD CULTURE, AEROBIC & 2022-10-10 15:37:00 [facility] ANA[facility] TYPE AND SCREEN 2022-10-10 14:53:00 Brian Silva [facility] ARTERIAL BLOOD GAS 2022-10-10 14:53:00 [facility] 2022-10-10 14:53:00 [facility] BASIC METABOLIC PANEL 2022-10-10 14:44:00 [facility] MAGNESIUM LEVEL 2022-10-10 14:44:00 [facility] PHOSPHORUS LEVEL 2022-10-10 14:44:[address] [facility] TROPONIN T 2022-10-10 14:44:00 [facility] ESTIMATED GFR 2022-10-10 14:44:00 [facility] B NATRIURETIC PEPTIDE 2022-10-10 14:44:00 [facility] LACTIC ACID LEVEL 2022-10-10 14:44:00 [facility] LIPID PANEL 2022-10-10 14:44:00 Eris Desaiafa [facility] IONIZED CALCIUM 2022-10-10 14:44:00 [facility] O2 SATURATION, VENOUS 2022-10-10 14:44:00 [facility]ST 1 VW PORTABLE 2022-10-10 14:25:00 [facility] POC GLUCOSE 2022-10-10 14:10:00 Jesus Amos spital [place] AN ELECTIVE 2022-10-10 13:53:00 Ac Phillips spital ENDOTRACHEAL AIRWAY [employer] MAGNESIUM LEVEL 2022-10-10 13:36:00 Amaya[facility] BASIC METABOLIC PANEL 2022-10-10 13:36:00 [facility] CBC WITH PLATELET AND 2022-10-10 13:36:00 James Berg [facility] DIFFERENTIAL PROTHROMBIN TIME WITH INR 2022-10-10 13:36:00 James Berg [facility] PARTIAL THROMBOPLASTIN 2022-10-10 13:36:00 Otis [facility] TIME (PTT) ESTIMATED GFR 2022-10-10 13:36:00 Jesus Amos spital SMEAR REVIEW 2022-10-10 13:36:00 Otis [facility] POC GLUCOSE 2022-10-10 13:25:00 Jesus Amos spital BASIC METABOLIC PANEL 2022-10-10 06:38:00 [facility] CBC WITH PLATELET AND 2022-10-10 06:38:00 D[facility] DIFFERENTIAL ESTIMATED GFR 2022-10-10 06:38:00 [facility] SMEAR REVIEW 2022-10-10 06:38:00 Jesus Amos spital MAGNESIUM LEVEL 2022-10-10 06:37:00 [facility] POTASSIUM LEVEL 2022-10-10 06:37:00 [facility] ECG 12-LEAD 2022-10-10 03:22:55 Jesus Amos spital POC GLUCOSE 2022-10-10 03:17:00 Jesus Amos spital OCCULT BLOOD, STOOL 2022-10-10 01:45:00 Jesus Amos [facility] US GALLBLADDER 2022-10-10 00:50:00 Ruthy Luna Braden [facility] POC GLUCOSE 2022-10-09 22:17:00 Jesus Amos spital POC GLUCOSE 2022-10-09 17:05:00 Jesus Amos spital CV MRI FUNCTION VIABILITY 2022-10-09 16:42:38 Roxana Malloy [facility] CHF EVALUATION [facility] BASIC METABOLIC PANEL 2022-10-09 10:00:00 [facility] CBC WITH PLATELET AND 2022-10-09 10:00:00 [facility] DIFFERENTIAL MAGNESIUM LEVEL 2022-10-09 10:00:00 Jesus Amos spital ESTIMATED GFR 2022-10-09 10:00:00 [facility] SMEAR REVIEW 2022-10-09 10:00:00 Jesus Amos spital POC GLUCOSE 2022-10-09 02:57:00 Jesus Amos spital POC GLUCOSE 2022-10-08 23:49:00 Jesus Amos spital POC GLUCOSE 2022-10-08 22:35:00 Jesus Amos spital BASIC METABOLIC PANEL 2022-10-08 20:08:00 Rubén [facility] [place] MAGNESIUM LEVEL 2022-10-08 20:08:00 Antonietta [place] spital [place] ESTIMATED GFR 2022-10-08 20:08:00 Jesus Amos spital POC GLUCOSE 2022-10-08 18:43:00 Jesus Amos spital POC GLUCOSE 2022-10-08 18:03:00 Jesus Amos spital POC GLUCOSE 2022-10-08 14:32:00 Jesus Amos spital POC GLUCOSE 2022-10-08 13:14:00 Jesus Amos spital TESTOSTERONE LEVEL, FREE 2022-10-08 11:31:00 Jesus Amos [facility] AND TOTAL, MALE ESTRADIOL LEVEL 2022-10-08 11:31:00 Jesus Amos spital CBC WITH PLATELET AND 2022-10-08 11:31:00 [facility]FFER[facility] BASIC METABOLIC PANEL 2022-10-08 11:31:00 Jesus Amos [facility] MAGNESIUM LEVEL 2022-10-08 11:31:00 Jeuss Amos spital ESTIMATED GFR 2022-10-08 11:31:00 Jesus Amos spital SMEAR REVIEW 2022-10-08 11:31:00 Jesus Amos spital ESTIMATED GFR 2022-10-08 09:26:00 AmayaMarlo [facility] POC GLUCOSE 2022-10-08 03:50:00 Jesus Amos spital TTE COMPLETE, W CONTRAST, 2022-10-07 23:32:07 [facility] ([id number][facility] POC GLUCOSE 2022-10-07 23:16:00 Jesus Amos spital BASIC METABOLIC PANEL 2022-10-07 22:28:00 Antonietta [place] [facility] Lyn MAGNESIUM LEVEL 2022-10-07 22:28:00 [place]ietta [place] [facility] Lyn ESTIMATED GFR 2022-10-07 22:28:[address] ABDOMEN PELVIS W 2022-10-07 21:34:08 Jim Posada [facility] CONTRAST POC GLUCOSE 2022-10-07 17:33:00 Jesus Amos spital POC GLUCOSE 2022-10-07 13:31:00 Jesus Amos spital CBC WITH PLATELET AND 2022-10-07 08:53:00 Jesus Amos [facility] DIFFERENTIAL BASIC METABOLIC PANEL 2022-10-07 08:53:00 [facility] MAGNESIUM LEVEL 2022-10-07 08:53:00 [facility] B NATRIURETIC PEPTIDE 2022-10-07 08:53:00 Neyda Carvalho miltonghislaine [facility] ESTIMATED GFR 2022-10-07 08:53:00 [facility] SMEAR REVIEW 2022-10-07 08:53:00 [facility] POC GLUCOSE 2022-10-07 03:04:00 [facility] POC GLUCOSE 2022-10-06 23:19:00 Jesus Amos Ho spital POC GLUCOSE 2022-10-06 18:00:00 [facility] ECG 12-LEAD 2022-10-06 15:31:23 Jenniffer Adam ospital POC GLUCOSE 2022-10-06 13:44:00 Jesus Amos Ho spital CBC WITH PLATELET AND 2022-10-06 10:19:00 [facility] DIFFERENTIAL BASIC METABOLIC PANEL 2022-10-06 10:19:00 [facility] MAGNESIUM LEVEL 2022-10-06 10:19:00 Jenniffer Adam ospital PROTHROMBIN TIME WITH INR 2022-10-06 10:19:00 [facility] PARTIAL THROMBOPLASTIN 2022-10-06 10:19:00 [facility] TIME (PTT) B NATRIURETIC PEPTIDE 2022-10-06 10:19:00 [facility] PHOSPHORUS LEVEL 2022-10-06 10:19:00 [facility] HEPATIC FUNCTION PANEL 2022-10-06 10:19:00 [facility] LACTIC ACID LEVEL 2022-10-06 10:19:00 [facility] HEMOGLOBIN A1C 2022-10-06 10:19:00 Jenniffer Adam ospital ESTIMATED GFR 2022-10-06 10:19:00 Jenniffer Adam ospital LACTIC ACID LEVEL, SEPSIS 2022-10-06 05:39:00 Miguel Quinteros Daljit [facility] - NOW AND REPEAT 2X EVERY 3 HOURS POC GLUCOSE 2022-10-06 04:12:00 Jenniffer Adam ospital TOTAL IRON BINDING 2022-10-06 03:28:00 [facility] CAPAC[facility] FERRITIN LEVEL 2022-10-06 03:28:00 Jenniffer Adam ospital FOLATE LEVEL 2022-10-06 03:28:00 Jenniffer Adam ospital VITAMIN B12 LEVEL 2022-10-06 03:28:00 [facility] THYROID STIMULATING 2022-10-06 [facility] 2022-10-06 03:28:00 Jenniffer Adam H ospital ECG 12-LEAD 2022-10-06 01:59:26 [facility] COVID-19 QUALITATIVE 2022-10-06 01:28:00 [facility] RT-PCR LACTIC ACID LEVEL, SEPSIS 2022-10-06 01:28:00 [facility] - NOW AND REPEAT 2X EVERY 3 HOURS TROPONIN T 2022-10-06 01:28:00 [facility] ECG ED PRELIMINARY 2022-10-06 00:28:56 [facility] INTERPRETATION US DUPLEX VENOUS LOWER 2022-10-05 23:10:00 [facility] EXTREMITY BILATERAL XR CHEST 1 VW PORTABLE 2022-10-05 22:26:00 [facility] CBC WITH PLATELET AND 2022-10-05 22:10:[address] [facility] DIFFERENTIAL COMPREHENSIVE METABOLIC 2022-10-05 22:10:00 [facility] PANEL TROPONIN T 2022-10-05 22:10:00 [facility] B NATRIURETIC PEPTIDE 2022-10-05 22:10:[address] [facility] ESTIMATED GFR 2022-10-05 22:10:00 [facility] LACTIC ACID LEVEL, SEPSIS 2022-10-05 22:10:00 [facility] - NOW AND REPEAT 2X EVERY 3 HOURS SMEAR REVIEW 2022-10-05 22:10:00 [facility] ECG 12-LEAD 2022-10-05 21:43:05 [facility] TTE COMPLETE, WO CONTRAST, 2022-09-15 15:58:37 [facility] DOPPLER ([id number]) TTE COMPLETE, W CONTRAST, 2022-04-21 15:29:52 [facility] W DOPPLER ([id number]) ECG 12-LEAD 2022-04-11 14:47:29 Jesus Reina POCT-GLUCOSE METER 2022-02-10 11:18:00 [facility] POCT-GLUCOSE METER 2022-02-10 06:15:00 [facility] BASIC METABOLIC PANEL 2022-02-10 04:30:00 [facility] CBC W/PLT COUNT & AUTO 2022-02-10 04:30:00 [facility] MAGNESIUM 2022-02-10 04:30:00 [facility] CBC W/PLT COUNT & AUTO 2022-02-10 04:30:00 [facility] POCT-GLUCOSE METER 2022-02-10 00:23:00 [facility] POCT-GLUCOSE METER 2022-02-09 20:26:00 [facility] POCT-GLUCOSE METER 2022-02-09 16:29:00 [facility] CATHETERIZATION, HEART, 2022-02-09 11:47:00 Valerie Caballero [facility] POCT-GLUCOSE METER 2022-02-09 06:55:00 [facility] TSH/FREE T4 IF INDICATED 2022-02-09 05:26:00 Rosie Ordonez [facility] BASIC METABOLIC PANEL 2022-02-09 05:26:00 [facility] CBC W/PLT COUNT & AUTO 2022-02-09 05:26:00 [facility] HEPATIC FUNCTION PANEL 2022-02-09 05:26:00 [facility] MAGNESIUM 2022-02-09 05:26:00 [facility] CBC W/PLT COUNT & AUTO 2022-02-09 05:26:00 [facility] POCT-GLUCOSE METER 2022-02-08 20:28:00 [facility] POCT-GLUCOSE METER 2022-02-08 16:23:[address] [facility] TROPONIN I 2022-02-08 13:06:00 Hermila Ordonezenna [facility] POCT-GLUCOSE METER 2022-02-08 11:43:00 [facility]/ REFLEX URINE 2022-02-08 11:04:[address] [facility] CULTURE [facility] C. DIFFICILE GDH TOXIN 2022-02-08 11:04:00 Monika Snell [facility] GI PATHOGEN PROFILE BY PCR 2022-02-08 11:04:00 Monika Snell [facility] 2D ECHO W/ DOPPLER 2022-02-08 09:13:40 [facility] ECG 12-LEAD 2022-02-08 06:35:27 Unknown, [facility] ECG 12-LEAD 2022-02-08 06:35:27 Unknown, [facility] XR CHEST 1 VIEW PORTABLE / 2022-02-08 06:24:00 Rosie Ordonez [facility] Center FERRITIN 2022-02-08 05:37:00 Brycemaurizio [facility] B-TYPE NATRIURETIC FACTOR 2022-02-08 05:37:00 Brycemaurizio [facility] (BNP) [facility] CBC W/PLT COUNT & AUTO 2022-02-08 05:37:00 Brycemaurizio [facility] DIFFERENTIAL [facility] (MANUAL DIFFERENTIAL) 2022-02-08 05:37:00 Bryce [facility] BLOOD CULTURE 2022-02-08 05:37:00 Mery [facility] COMPREHENSIVE METABOLIC 2022-02-08 05:37:00 [facility] HEMOGLOBIN A1C 2022-02-08 05:37:00 Mery [facility] PROTHROMBIN TIME/INR 2022-02-08 05:37:00 Rosie Ordonez C HI [facility] LIPID PANEL 2022-02-08 05:37:00 [facility] 2022-02-08 05:37:00 Mery [facility] PHOSPHORUS 2022-02-08 05:37:00 [facility] TROPONIN I 2022-02-08 05:37:00 [facility] CBC W/PLT COUNT & AUTO 2022-02-08 05:37:00 Bryce [facility] PROCALCITONIN 2022-02-08 05:37:00 [facility] LACTIC ACID, VENOUS 2022-02-08 05:37:00 [facility] CH I [facility] IRON, TIBC, % SAT. 2022-02-08 05:37:00 Bryce [facility] (WITHOUT FERRITIN) Medical Cente r POCT-GLUCOSE METER 2022-02-08 05:26:00 [facility] CARDIAC CATH REPORT - SCAN 2022-02-08 00:00:00 Provider, Default [facility] EKG-SCANNED 2022-02-08 00:00:00 Provider, Default [facility] Plan of Care Planned Activity Planned Date Details Comments Source Future Scheduled 2025-02-[address] [facility] 00:[facility]:00 (procedure) [code = [facility] 13732258] Future Scheduled 2025-02-[address] [facility] 00:00:00 (procedure) [code = [facility] 18052480] Future Scheduled 2023-02-[address] [facility] 00:[facility]:00 [facility] Scre[facility] (12+) [code = Tobacco Cessation Counseling and Screening (12+)] Future Scheduled 2023-02-[address] [facility] Test 00:00:00 [facility] Screening (12+) [code = Tobacco Cessation Counseling and Screening (12+)] Future Scheduled 2022-11-01 Pneumococcal Vaccine: [facility] Test 13:17:37 Pediatrics (0 to 5 Years) and At-Risk Patients (6 to 64 Years) (1 - PCV) [code = Pneumococcal Vaccine: Pediatrics (0 to 5 Years) and At-Risk Patients (6 to 64 Years) (1 - PCV)] Future Scheduled 2022-11-01 DIABETIC FOOT EXAM [facility] Test 13:17:37 [code = DIABETIC FOOT EXAM] Future Scheduled 2022-11-01 Hepatitis C screening [facility] Test 13:17:37 (procedure) [code = 529053347] Future Scheduled 2022-11-01 COLONOSCOPY SCREENING [facility] Test 13:17:37 [code = COLONOSCOPY SCREENING] Future Scheduled 2022-11-01 SHINGLES VACCINES (1 Met [facility] Test 13:17:37 of 2) [code = SHINGLES VACCINES (1 of 2)] Future Scheduled 2022-11-01 COVID-19 VACCINE (4 - [facility] Test 13:17:37 Booster for Pfizer series) [code = COVID-19 VACCINE (4 - Booster for Pfizer series)] Future Scheduled 2022-11-01 INFLUENZA VACCINE Method [facility] Test 13:17:37 [code = INFLUENZA VACCINE] Future Scheduled 2022-11-01 DIABETES: RETINAL EYE [facility] Test 13:17:37 EXAM [code = DIABETES: RETINAL EYE EXAM] Future Scheduled 2022-09-27 HEPATITIS B VACCINES Met [facility] Test 08:29:57 (1 of 3 - 3-dose series) [code = HEPATITIS B VACCINES (1 of 3 - 3-dose series)] Future Scheduled 2022-09-27 Pneumococcal Vaccine: [facility] Test 08:29:57 Pediatrics (0 to 5 Years) and At-Risk Patients (6 to 64 Years) (1 - PCV) [code = Pneumococcal Vaccine: Pediatrics (0 to 5 Years) and At-Risk Patients (6 to 64 Years) (1 - PCV)] Future Scheduled 2022-09-27 Hepatitis C screening [facility] Test 08:29:57 (procedure) [code = 300852030] Future Scheduled 2022-09-27 COLONOSCOPY SCREENING [facility] Test 08:29:57 [code = COLONOSCOPY SCREENING] Future Scheduled 2022-09-27 SHINGLES VACCINES (1 Met [facility] Test 08:29:57 of 2) [code = SHINGLES VACCINES (1 of 2)] Future Scheduled 2022-09-27 COVID-19 VACCINE (3 - [facility] Test 08:29:57 Booster for Pfizer series) [code = COVID-19 VACCINE (3 - Booster for Pfizer series)] Future Scheduled 2022-09-27 INFLUENZA VACCINE [facility] 08:29:57 [code = INFLUENZA VACCINE] Future Scheduled 2022-06-29 INFLUENZA VACCINE (#1[facility] [code = INFLUENZA Medical Ce nter VACCINE (#1)] Future Scheduled 2022-06-29 INFLUENZA VACCINE (#1) [facility] 00:00:00 [code = INFLUENZA Medical Ce nter VACCINE (#1)] Future Scheduled 2022-05-[address] [facility] 00[facility]00 [facility] (procedure) [code = 60551050] Future Scheduled 2022-05-[address] [facility] 00[facility]00 [facility] Center (procedure) [code = 21448927] Future Scheduled 2021-07-18 COVID-19 VACCINE (3 - [facility]00 Booster for Pfizer Medical C enter series) [code = COVID-19 VACCINE (3 - Booster for Pfizer series)] Future Scheduled 2021-07-18 COVID-19 VACCINE (3 - [facility] 00:00:00 Booster for Pfizer Medical C enter series) [code = COVID-19 VACCINE (3 - Booster for Pfizer series)] Future Scheduled 2018 SHINGLES VACCINES ([address] [facility] Test 00:00:00 of 2) [code = SHINGLES Medic al Center VACCINES (1 of 2)] Future Scheduled 2018 SHINGLES VACCINES ([address] [facility] Test 00:00:00 of 2) [code = SHINGLES Medic al Center VACCINES (1 of 2)] Future Scheduled 1987 DTAP/TDAP/TD VACCINES [facility] 00:00:00 (1 - Tdap) [code = Medical C enter DTAP/TDAP/TD VACCINES (1 - Tdap)] Future Scheduled 1987 DTAP/TDAP/TD VACCINES [facility] 00:00:00 (1 - Tdap) [code = Medical C enter DTAP/TDAP/TD VACCINES (1 - Tdap)] Future Scheduled 1986 HEPATITIS C [facility]CRE[facility]ING [facility] 00:00[facility]00 [code = HEPATITIS C Medical Center SCREENING] Future Scheduled 1986 HEPATITIS C [facility]ING [facility] 00:00:00 [code = HEPATITIS C Medical Center SCREENING] Future Scheduled 1978 DIABETIC EYE EXAM [facility] 00:00:00 [code = DIABETIC EYE Medical Center EXAM] Future Scheduled [address] [facility] 00[facility]00 examination Medical Center (regime/therapy) [code = 262909996] Future Scheduled 1978 Urine screening for [facility] 00:00:00 protein (procedure) Medical Center [code = 392525068] Future Scheduled 1978 DIABETIC EYE EXAM [facility] 00:00:00 [code = DIABETIC EYE Medical Center EXAM] Future Scheduled [address] [facility] 00:00:00 examination Medical Center (regime/therapy) [code = 667734684] Future Scheduled 1978 Urine screening for [facility] 00:00:00 protein (procedure) Medical Center [code = 463839664] Future Scheduled [address] [facility] Test 00:00:00 0-64 YRS (1 - PCV) Medical C enter [code = PNEUMOCOCCAL VACCINE 0-64 YRS (1 - PCV)] Future Scheduled [address] [...] Medica l Center colon (procedure) [code = 994704803] Future Scheduled [address] [facility] 00:00:00 malignant neoplasm of Medica l Center colon (procedure) [code = 970196974] Future Scheduled [address] [facility] 00:00:00 malignant neoplasm of Medica l Center colon (procedure) [code = 844843815] Future Scheduled [address] [facility] 00:00:00 malignant neoplasm of Medica l Center colon (procedure) [code = 598375225] Future Scheduled 1968 Sigmoidoscopy [code [facility]oscopy] Medical Cente r Future Scheduled [address] [facility] 00:00:00 (combo) [code = CT Medical C enter Colonography (combo)] Future Scheduled [address] [facility] 00:00:00 malignant neoplasm of Medica l Center colon (procedure) [code = 846700151] Future Scheduled [address] [facility] 00:00:00 malignant neoplasm of Medica l Center colon (procedure) [code = 423882455] Future Scheduled [address] [facility] 00:00:00 malignant neoplasm of Medica l Center colon (procedure) [code = 949459933] Future Scheduled [address] [facility] 00:00:00 malignant neoplasm of Medica l Center colon (procedure) [code = 502888920] Future Scheduled 1968 Sigmoidoscopy [facility] S[facility]oscopy] Medical Cente r Encounters Start End Encounter Admission Attending Care Care Encounter Source Date/Time Date/Time Type Type Clinicians Facility Department ID 2021-11-23 [facility] [id number] [facility] 10:59:54 [id number] [facility] 2021-08-04 [facility] [id number] [facility] 11:20:52 ETTA 2023-01-15 2023-01-15 Outpatient JOHN NAVARRETE [facility] [id number] [facility] 00:00:00 00:00:00 ETTA mccray of Medicin e 2022-10-31 2022-10-31 Office Latosha, 1.2.840.1 [id number] Methodi 10:20:00 12:59:16 Visit Jesus Silveira 41185.1.[address] 3.430.2.7 Hospit a .3.215850 l .8 2022-10-31 2022-10-31 [facility] [id number] [place] 00:00:00 00:00:00 JESUS [address] 2022-10-31 2022-10-31 Travel 1.2.840.1 1.2.946.157 [id number] Methodi 00:00:00 00:00:[address] 3.430.2.7 0.2.7.3.698 Ho spita .3.328550 084.8 l .8 2022-10-05 2022-10-26 [facility] Miguel Quinteros 1.2.840.1 [id number] Methodi 15:39:00 16:14:00 Encounter Jenniffer Adam 90901.1.[address] [facility] 3.430.2.7 Hospita Jesus Amos .3.688290 l Clif Barone .8 Kojo Tucker 2022-10-05 2022-10-26 Inpatient KOJO TUCKER [facility] [id number] [id number] [place] 00:00:00 00:00:[address] 2022-10-13 2022-10-13 Surgery Marco, 1.2.840.1 [id number] Methodi 11:35:00 13:05:00 Derek Ross 69768.1.[address] 3.430.2.7 Hospit a .3.914570 l .8 2022-10-13 2022-10-13 Anesthesia Marshall Gage 1.2.840.1 [id number] Methodi 11:15:00 11:47:00 Event Omayra Owens 15727.1.[address] 3.430.2.7 Hospit a .3.654723 l .8 2022-10-11 2022-10-11 Surgery Latosha, 1.2.840.1 [id number] 0450 Methodi 17:17:00 18:37:00 Jesus Silveira 82384.1.[address] 3.430.2.7 Hospit a .3.716364 l .8 2022-10-11 2022-10-11 Surgery Reina, 1.2.840.1 [id number] Methodi 09:47:00 11:07:00 Jesus R[address] 70783.1.[address] 3.430.2.7 Hospit a .3.343449 l .8 2022-10-10 2022-10-10 Anesthesia Jacqueline, 1.2.840.1 [id number] Methodi 07:52:57 07:52:57 [place] 54389.1.[address] [facility] 3.430.2.7 Hosp korina .3.104309 l .8 2022-09-26 2022-09-26 Office Reina, 1.2.840.1 [id number] Methodi 10:00:00 13:47:03 Visit Jesus Silveira 20494.1.[address] 3.430.2.7 Hospit a .3.028221 l .8 2022-09-26 2022-09-26 Office Reina, 1.2.840.1 [id number] Methodi 10:00:00 13:47:03 Visit Jesus Silveira 23673.1.[address] 3.430.2.7 Hospit a .3.723403 l .8 2022-09-26 2022-09-26 Travel 1.2.840.1 1.2.616.743 7566 [id number] Methodi 00:00:00 00:00:[address] 3.430.2.7 0.2.7.3.698 Ho spita .3.678240 084.8 l .8 2022-09-262022-09-26 Travel 1.2.840.1 1.2.903.736 5498 [id number] Methodi 00:00:00 00:00:[address] 3.430.2.7 0.2.7.3.698 Ho spita .3.529631 084.8 l .8 2022-09-15 2022-09-15 [facility] [id number] [place] 00:00:00 00:00:00 JESUS [address] 2022-09-15 2022-09-15 Travel 1.2.840.1 1.2.132.812 8563 [id number] Methodi 00:00:00 00:00:[address] 3.430.2.7 0.2.7.3.698 Ho spita .3.446285 084.8 l .8 2022-09-15 2022-09-15 Travel 1.2.840.1 1.2.635.951 5919 758853 Methodi 00:00:00 00:00:[address] 3.430.2.7 0.2.7.3.698 Ho spita .3.004754 084.8 l .8 2022-09-12 2022-09-12 Telephone Ariana, 1.2.840.1 [id number] Methodi 00:00:00 00:00:[address] 3.430.2.7 Hospit a .3.587585 l .8 2022-09-12 2022-09-12 Telephone Ariana, 1.2.840.1 [id number] Methodi 00:00:00 00:00:[address] 3.430.2.7 Hospit a .3.960768 l .8 2022-08-02 2022-08-02 [place] 1.2.840.1 [id number] [id number] Methodi 00:00:00 00:00:[address] 3.430.2.7 Hospit a .3.259979 l .8 2022-08-02 2022-08-02 [place] 1.2.840.1 [id number] 2100 [id number] Methodi 00:00:00 00:00:[address] 3.430.2.7 Hospit a .3.785857 l .8 2022-07-13 2022-07-13 Outpatient [facility] [id number] [facility] 07:40:38 09:49:03 ETTA Abraham Medicin shazia 2022-07-11 2022-07-11 Office Latosha, 1.2.840.1 [id number] Methodi 10:00:00 10:10:00 Visit Jesus GhislaineBraden 50715.1.[address] 3.430.2.7 Hospit a .3.018983 l .8 2022-07-11 2022-07-11 Office Latosha 1.2.840.1 [id number] 2163 Methodi 10:00:00 10:10:00 Visit Jesus Silveira 95728.1.[address] 3.430.2.7 Hospit a .3.541600 l .8 2022-07-11 2022-07-11 Travel 1.2.840.1 1.2.248.899 6123 [id number] Methodi 00:00:00 00:00:[address] 3.430.2.7 0.2.7.3.698 Ho spita .3.145250 084.8 l .8 2022-07-11 2022-07-11 Travel 1.2.840.1 1.2.759.047 0917 [id number] Methodi 00:00:00 00:00:[address] 3.430.2.7 0.2.7.3.698 Ho spita .3.543877 084.8 l .8 2022-04-21 2022-04-21 Travel 1.2.840.1 1.2.049.663 4430 [id number] Methodi 00:00:00 00:00:[address] 3.430.2.7 0.2.7.3.698 Ho spita .3.631424 084.8 l .8 2022-04-21 2022-04-21 Outpatient LATOSHA, [facility] [id number] [place] 00:00:00 00:00:[address]ES[address] 2022-04-21 2022-04-21 Travel 1.2.840.1 1.2.482.091 9322 [id number] Methodi 00:00:00 00:00:[address] 3.430.2.7 0.2.7.3.698 Ho spita .3.654411 084.8 l .8 2022-04-11 2022-04-11 Office Reina, 1.2.840.1 [id number] 8855 Methodi 10:15:00 14:56:42 Visit Jesus R. 40270.1.[address] 3.430.2.7 Hospit a .3.462486 l .8 2022-04-11 2022-04-11 Office Reina, 1.2.840.1 [id number] Methodi 10:15:00 14:56:42 Visit Jesus R. 69475.1.[address] 3.430.2.7 Hospit a .3.736067 l .8 2022-04-11 2022-04-11 Travel 1.2.840.1 1.2.293.756 4645 [id number] Methodi 00:00:00 00:00:[address] 3.430.2.7 0.2.7.3.698 Ho spita .3.741850 084.8 l .8 2022-04-11 2022-04-11 Travel 1.2.840.1 1.2.815.628 4881 524374 Methodi 00:00:00 00:00:[address] 3.430.2.7 0.2.7.3.698 Ho spita .3.013498 084.8 l .8 2022-02-28 2022-02-28 Travel 1.2.840.1 1.2.547.210 1269 [id number] Methodi 00:00:00 00:00:[address] 3.430.2.7 0.2.7.3.698 Ho spita .3.985212 084.8 l .8 2022-02-28 2022-02-28 Travel 1.2.840.1 1.2.771.560 8104 [id number] Methodi 00:00:00 00:00:[address] 3.430.2.7 0.2.7.3.698 Ho spita .3.012851 084.8 l .8 2022-02-08 2022-02-10 Inpatient ER [facility] Cardiology [id number] [facility] 04:45:00 15:44:00 [place] 2022-02-08 2022-02-10 [facility] [id number] 04[facility]45:00 15:44:00 Encounter [facility] 2022-02-08 2022-02-10 [facility] [id number] 04:45:00 15:44:00 Encounter [facility] 2022-02-09 2022-02-09 Surgery [facility] [id number] 12:00:00 13:02:00 [facility] 2022-02-09 2022-02-09 Surgery [facility] [id number] 12:00:00 13:02:00 [facility] 2022-02-08 2022-02-08 Orders [facility] [id number] 00:00:00 00:00:00 [facility] 2022-02-08 2022-02-08 Travel [facility] [id number] [facility]00 00[facility]:00 [facility] 2022-02-08 2022-02-08 Orders [facility] [id number] 00:00:00 00:00:[address] [facility] 2022-02-08 2022-02-08 Travel [facility] [id number] [facility] 00[facility]:00 [facility] 2022-02-07 2022-02-07 Documentat [facility] [id number] 00:00[facility]00 00:00:00 ion [facility] 2022-02-07 2022-02-07 [facility] [place] [id number] 00:00[facility]00 00:00:00 ion [facility] 2022-01-12 2022-01-12 Outpatient JOHN NAVARRETE [facility] [id number] [facility] 09:03:23 10:36:32 [facility] 2021-07-14 2021-07-14 Outpatient JOHN NAVARRETE [facility] [id number] [facility] [facility] 08:05:04 09:20:35 ETTA [facility] 2020-10-12 2020-10-12 Outpatient [facility] [id number] [facility] 00:00:00 00:00:00 2020-03-15 2020-03-15 [id number] [facility] 08:30:00 08:30:00 [facility] 2019-11-24 2019-11-24 [id number] [facility] 09:12:00 09:12:00 [facility] 2019-11-10 2019-11-10 [id number] [facility] 09:00:00 09:00:00 t [facility] Results Test Description Test Time Test Comments Results Result Comments Source POC glucose 2022-10-26 18:23:00 Test Item Value Reference Range Interpretation Comme nts POC glucose (test code = 109 mg/dL 65-99 H Ope rator Name: Harjit Reed [id number]) ID: [id number] hartable: [facility] Notified physical integration practitioner Interpretation (test code = Abnormal 67531-8) [facility] [id number] 04:18:00 Test Item Value Reference Range Interpretation Comments Product name (test code Red Blood Cells -1, = 25) Leukored Unit number (test code = [id number]) Product code (test code C1696Q70 = 3092) Dispense status (test Transfused code = 24) Blood expiration date (test code = 302) Blood type code (test code = 308) Blood type (test code = O POSITIVE 1314) Compatibility (test code Compatible = 6400) [facility] [id number] 19:26:06 Test Item Value Reference Range Interpretation Comments Case number (test code = [id number]) Surgical pathology See link below for report (test code = PDF Lab Report [id number]) Result status (test code This is Final Report = [id number]) for [id number] [facility] [id number] 20:16:00 Test Item Value Reference Range Interpretation Comments Urine culture growth after Specimen isolate (test 24 hours InformationSpe [facility] code = 90350-5) Source: Urin eSpecimen Site: Random vo id [facility]andIonized calcium, [id number] 12:35:00 Test Item Value Reference Range Interpretation Comments Ionized calcium, 1.27 mmol/L 1.11-1.32 SP RAN UNDE R arterial (test code 41162742 161 = 61223-9) [facility] 12 [id number] 21:30:16 Test Item Value Reference Range Interpretation Comments Ventricular rate (test code = 253) Atrial rate (test code = 255) [place] interval (test code = 266) QRSD interval (test code = 260) QT interval (test code = 264) QTC interval (test code = 265) P axis 1 (test code = 267) QRS axis 1 (test code = 268) T wave axis (test code = 270) EKG impression (test Normal sinus code = 273) rhythm-Left axis deviation-Anterior infarct (cited on or before 11-APR-2022)-Prolonged QT-Abnormal ECG-In automated comparison with ECG of 10-OCT-2022 10:11,-premature ventricular complexes are no longer present-Nonspecific T wave abnormality now evident in Anterior leads- Spiritism TdgpnttbBJTO-TdK-6 (COVID-19) RNA [Presence] in Respiratory specimen by KHAI with probe [id number] 05:06:53 Test Item Value Reference Range Interpretation Comments SARS-CoV-2 (COVID-19) RNA Not detected [Presence] in Respiratory specimen by KHAI with probe detection (test code = 23969-2) Whether patient is employed in a Unknown healthcare setting (test code = 88668-7) Whether the patient has symptoms Unknown related to condition of interest (test code = 44662-6) Whether the patient was Unknown hospitalized for condition of interest (test code = 15936-4) Whether the patient was admitted Unknown to intensive care unit (ICU) for condition of interest (test code = 74720-5) Whether patient resides in a Unknown congregate care setting (test code = 18990-8) status (test code = Unknown 78084-3) Date and time of symptom onset Unknown (test code = 54291-9) [facility] ED Preliminary Interpretation - Not an [id number] 00:28:56 Test Item Value Reference Range Interpretation Comments GABINO (test code = GABINO) Miguel Quinteros MD 10/31/2022 4:27 [facility] [place] Interpretation - Not an OrderPerformed by: Miguel Quinteros MDAuthorized by: Miguel Quinteros MD ECG reviewed by ED Physician in the absence of a dining room attendant cafeteria: yes Interpretation: Interpretation: abnormal Rate: ECG rate: 86 ECG rate assessment: normal Rhythm: Rhythm: sinus rhythm Ectopy: Ectopy: bigeminy and PVCs QRS: QRS axis: Normal QRS intervals: NormalST segments: ST segments: NormalOther findings: Other findings: prolonged qTc interval Lab Interpretation Abnormal (test code = 44953-2) Nora GraciaARS-CoV-2 (COVID-19) RNA [Presence] in Respiratory specimen by KHAI with probe [id number] 23:41:33 Test Item Value Reference Range Interpretation Comments SARS-CoV-2 (COVID-19) RNA Not detected [Presence] in Respiratory specimen by KHAI with probe detection (test code = 10103-3) Whether patient is employed in a Unknown healthcare setting (test code = 56131-0) Whether the patient has symptoms Unknown related to condition of interest (test code = 21943-2) Whether the patient was Unknown hospitalized for condition of interest (test code = 73562-5) Whether the patient was admitted Unknown to intensive care unit (ICU) for condition of interest (test code = 82704-7) Whether patient resides in a Unknown congregate care setting (test code = 14003-2) status (test code = Unknown 61565-5) Date and time of symptom onset Unknown (test code = 09441-1) DEBORA HE 12 [id number] 20:48:01 Test Item Value Reference Range Interpretation Comments Ventricular rate (test code = 253) Atrial rate (test code = 255) [place] interval (test code = 266) QRSD interval (test code = 260) QT interval (test code = 264) QTC interval (test code = 265) P axis 1 (test code = 267) QRS axis 1 (test code = 268) T wave axis (test code = 270) EKG impression (test Normal sinus code = 273) rhythm-Left axis deviation-Cannot rule out Inferior infarct , age undetermined-Anterose ptal infarct , age undetermined-ST & T wave abnormality, consider lateral ischemia-Abnormal ECG-No previous ECGs available-Electronica lly Signed By Marlo Conde MD ([id number]) on 04/11/2022 3:37:39 PM Nora SteeleOOD [id number] 13:35:08 Test Item Value Reference Range Interpretation Comments CULTURE A From Anaerobic (BEAKER) (test Bottle Only code = 1095) Diphtheroid GRAM STAIN From anaerobic RESULT (BEAKER) bottle only: gram (test code = positive 1123) coccobacilli BLOOD [id number] 10:00:55 Test Item Value Reference Range Interpretation Comments CULTURE (BEAKER) (test No growth in 5 days code = 1095) POC-Glucose [id number] 11:29:37 Test Item Value Reference Range Interpretation Comments POC-Glucose Meter (test 190 mg/dL 70-110 H : TE STED AT [facility] code = 1538) [address] [place] [id number]: Department Sales Manager/Techni cristina ID = [id number] for Mckeon, Cecelia erickson Lab Interpretation (test Abnormal code = 91781-4) [facility] [id number] 11:29:37 Test Item Value Reference Range Interpretation Comments POC-Glucose Meter (test 190 mg/dL 70-110 H : TE STED AT [facility] code = 1538) [address] [place] [id number]: Department Sales Manager/Techni cristina ID = [id number] for Mckeon, Cecelia erickson Lab Interpretation (test Abnormal code = 07053-9) [facility] [id number] 11:29:37 Test Item Value Reference Range Interpretation Comments POC-GLUCOSE METER 190 mg/dL 70-110 H : TESTED A T [facility] [address] (BEAKER) (test code [address] [facility], = 1538) [place] [id number]: Department Sales Manager/Techni cristina ID = [id number] for Cerv antes, Crystal POCT-GLUCOSE [id number] 06:28:06 Test Item Value Reference Range Interpretation Comments POC-GLUCOSE METER 168 mg/dL 70-110 H : TESTED A T [facility] [address] (BEAKER) (test code [address] [facility], = 1538) [place] [address]: Department Sales Manager/Techni cristina ID = [id number] for Cindy kirkpatrick Sherin BASIC METABOLIC [id number] 06:03:57 Test Item Value Reference Range Interpretation [...] 697) EGFR (BEAKER) (test 73 mL/min/1.73 ESTIMA LÓPEZ GFR IS code = 1092) sq m NOT ACCURATE CREATININE CLEARANCE IN PREDICTING GLOMERULAR FILTRATION RATE . ESTIMATED GFR I S NOT APPLICABLE FOR DIALYSIS PATIEN TS. Department Sales Manager ID - LITOOperator ID - LITOOperator ID - LITOOperator ID - LITOOperator ID - LITOOperator ID - LITOOperator ID - LITOOperator ID - LITOOperator ID - LITOOperator ID - [id number] 06:00:25 Test Item Value Reference Range Interpretation Comments MAGNESIUM (BEAKER) (test code = 2.0 mg/dL 1.5-3.0 627) Department Sales Manager ID - LITOOperator ID - LITOOperator ID - LITOOperator ID - LITOCBC W/PLT COUNT & AUTO [id number] 05:48:50 Test Item Value Reference Range Interpretation [...] PERCENT (BEAKER) (test code = 2801) POCT-GLUCOSE [id number] 00:34:49 Test Item Value Reference Range Interpretation Comments POC-GLUCOSE METER 238 mg/dL 70-110 H : TESTED A T [facility] [address] (BEAKER) (test code [address], = 1538) [place] [address]: Department Sales Manager/Techni cristina ID = [id number] for Prieto bolton Katherine POCT-GLUCOSE [id number] 20:38:11 Test Item Value Reference Range Interpretation Comments POC-GLUCOSE METER 261 mg/dL 70-110 H : TESTED A T [facility] [address] (BEAKER) (test code [address], = 1538) [place] [address]: Department Sales Manager/Techni cristina ID = [id number] for Sherin Espinal POCT-GLUCOSE [id number] 18:58:16 Test Item Value Reference Range Interpretation Comments POC-GLUCOSE METER 138 mg/dL 70-110 H : TESTED A T [facility] [address] (BEAKER) (test code [address], = 1538) [place] [address]: Department Sales Manager/Techni cristina ID = [id number] for Chantell Ruth POCT-GLUCOSE [id number] 07:07:59 Test Item Value Reference Range Interpretation Comments POC-GLUCOSE METER 165 mg/dL 70-110 H : TESTED A T [facility] [address] (BEAKER) (test code [address], = 1538) [place] [address]: Department Sales Manager/Techni cristina ID = [id number] for Sherin Espinal TSH/FREE T4 IF [id number] 06:26:31 Test Item Value Reference Range Interpretation Comments THYROID STIMULATING HORMONE 1.460 uIU/mL 0.350-5.500 (BEAKER) (test code = 772) Department Sales Manager ID - [id number] METABOLIC [id number] 06:13:13 Test Item Value Reference Range Interpretation [...] 697) EGFR (BEAKER) (test 73 mL/min/1.73 ESTIMA LÓPZE GFR IS code = 1092) sq m NOT ACCURATE CREATININE CLEARANCE IN PREDICTING GLOMERULAR FILTRATION RATE . ESTIMATED GFR I S NOT APPLICABLE FOR DIALYSIS PATIEN TS. Department Sales Manager ID - ibzl77Ggygtdos ID - [id number] ID - ztsl39Gfbimvpd ID - viod33Roeyjloy ID - [id number] ID - somx87Yhhyjjlb ID - fphj33Kmowrrwd ID - dtux74Tkrgbsqu ID - btam37Rafwmqty ID - [id number] FUNCTION [id number] 06:13:08 Test Item Value Reference Range Interpretation [...] (test code = 22 U/L 5-50 347) Department Sales Manager ID - [id number] ID - [id number] ID - qmih08Gfvyslmv ID - ldyc15Ctkoupyr ID - qtzs88Aqncjwqu ID - [id number] ID - [id number] W/PLT COUNT & AUTO [id number] 06:11:44 Test Item Value Reference Range Interpretation [...] H PERCENT (BEAKER) (test code = 2801) [id number] 06:05:35 Test Item Value Reference Range Interpretation Comments MAGNESIUM (BEAKER) (test code = 2.1 mg/dL 1.5-3.0 627) Department Sales Manager ID - [id number] ID - dflt27Mlfzhfkg ID - iszm34Fwdhusfq ID - [id number] POCT-GLUCOSE [id number] 20:52:17 Test Item Value Reference Range Interpretation Comments POC-GLUCOSE METER 103 mg/dL 70-110 : TESTED A T [facility] [address] (BEAKER) (test code [facility] [address], = 1538) [place] [address]: Department Sales Manager/Techni cristina ID = [id number] for Sherin Espinal GI Pathogen Profile by PCR-ID [id number] 17:47:01 Test Item Value Reference Range Interpretation Comments CAMPYLOBACTER PCR (test Not detected Not detected code = 50735-0) PLESIOMONAS SHIGELLOIDES Not detected Not detected (PCR) (test code = 98026-5) SALMONELLA (PCR) (test Not detected Not detected code = 58727-8) YERSINIA ENTEROCOLITICA Not detected Not detected (PCR) (test code = 93249-1) VIBRIO CHOLERAE (PCR) Not detected Not detected (test code = 37932-6) ENTEROAGGREGATIVE E. Not detected Not detected COLI (EAEC) BY PCR (test code = 20171-7) ENTEROPATHOGENIC E. COLI Not detected Not detected (EPEC) BY PCR (test code = 43049-1) ENTEROTOXIGENIC E. COLI Not detected Not detected (ETEC) LT/ST BY PCR (test code = 47535-7) SHIGA-LIKE Not detected Not detected TOXIN-PRODUCING E. COLI (STEC) STX1/STX2 (test code = 40181-1) E. COLI O157 (PCR) (test code = 11309-9) SHIGELLA/ENTEROINVASIVE Not detected Not detected E. COLI (EIEC) BY PCR (test code = 36199-8) CRYPTOSPORIDIUM (PCR) Not detected Not detected (test code = 71455-7) CYCLOSPORA CAYETANENSIS Not detected Not detected (PCR) (test code = 56606-8) ENTAMOEBA HISTOLYTICA Not detected Not detected (PCR) (test code = 68265-6) GIARDIA LAMBLIA (PCR) Not detected Not detected (test code = 86942-9) ADENOVIRUS F 40/41 (PCR) Not detected Not detected (test code = 35962-1) ASTROVIRUS (PCR) (test Not detected Not detected code = 21331-1) NOROVIRUS GI/GII (PCR) Not detected Not detected (test code = 52445-8) ROTAVIRUS A (PCR) (test Not detected Not detected code = 68166-2) SAPOVIRUS (I, II, IV, V) Not detected Not detected BY PCR (test code = 02302-9) VIBRIO Not detected Not detected (PARAHAEMOLYTICUS, VULNIFICUS) (test code = 17608-6) GABINO (test code = GABINO) Other viruses, parasites and bacteria not targeted by this PCR panel cannot be excluded; therefore clinical correlation and follow up of serology, culture results, and other molecular studies is required. The results are not intended to be used as the sole means for clinical diagnosis or patient management decisions. This sample was tested at the [facility] Molecular Diagnostics Laboratory using the [employer] Gastrointestinal Panel. It is FDA cleared and has been verified and approved by the [facility] for clinical use. This laboratory is CLIA-certified and [employer] [place] [employer] (CAP)-accredited to perform high complexity testing. [facility] by PCR-ID [id number] 17:47:01 Test Item Value Reference Range Interpretation Comments CAMPYLOBACTER PCR (test Not detected Not detected code = 35542-6) PLESIOMONAS SHIGELLOIDES Not detected Not detected (PCR) (test code = 75649-4) SALMONELLA (PCR) (test Not detected Not detected code = 29541-3) YERSINIA ENTEROCOLITICA Not detected Not detected (PCR) (test code = 48228-7) VIBRIO CHOLERAE (PCR) Not detected Not detected (test code = 46422-1) ENTEROAGGREGATIVE E. Not detected Not detected COLI (EAEC) BY PCR (test code = 73656-5) ENTEROPATHOGENIC E. COLI Not detected Not detected (EPEC) BY PCR (test code = 34521-2) ENTEROTOXIGENIC E. COLI Not detected Not detected (ETEC) LT/ST BY PCR (test code = 82026-2) SHIGA-LIKE Not detected Not detected TOXIN-PRODUCING E. COLI (STEC) STX1/STX2 (test code = 29236-2) E. COLI O157 (PCR) (test code = 51998-0) SHIGELLA/ENTEROINVASIVE Not detected Not detected E. COLI (EIEC) BY PCR (test code = 72825-8) CRYPTOSPORIDIUM (PCR) Not detected Not detected (test code = 25777-8) CYCLOSPORA CAYETANENSIS Not detected Not detected (PCR) (test code = 26500-4) ENTAMOEBA HISTOLYTICA Not detected Not detected (PCR) (test code = 68430-1) GIARDIA LAMBLIA (PCR) Not detected Not detected (test code = 61286-0) ADENOVIRUS F 40/41 (PCR) Not detected Not detected (test code = 80742-4) ASTROVIRUS (PCR) (test Not detected Not detected code = 55944-9) NOROVIRUS GI/GII (PCR) Not detected Not detected (test code = 05876-8) ROTAVIRUS A (PCR) (test Not detected Not detected code = 96550-2) SAPOVIRUS (I, II, IV, V) Not detected Not detected BY PCR (test code = 78090-8) VIBRIO Not detected Not detected (PARAHAEMOLYTICUS, VULNIFICUS) (test code = 56299-0) GABINO (test code = GABINO) Other viruses, parasites and bacteria not targeted by this PCR panel cannot be excluded; therefore clinical correlation and follow up of serology, culture results, and other molecular studies is required. The results are not intended to be used as the sole means for clinical diagnosis or patient management decisions. This sample was tested at the [facility] Molecular Diagnostics Laboratory using the [employer] Gastrointestinal Panel. It is FDA cleared and has been verified and approved by the [facility] Diagnostics [facility] for clinical use. This laboratory is CLIA-certified and [employer] [place] [employer] (CAP)-accredited to perform high complexity testing. [facility] PROFILE BY [id number] 17:47:01 Test Item Value Reference Range Interpretation Comments CAMPYLOBACTER (PCR) (test code = Not detected Not detected 20160502) PLESIOMONAS SHIGELLOIDES (PCR) Not detected Not detected (test code = 20160506) SALMONELLA (PCR) (test code = Not detected Not detected ) YERSINIA ENTEROCOLITICA (PCR) Not detected Not detected (test code = 2432856) VIBRIO CHOLERAE (PCR) (test code Not detected Not detected = 20160530) ENTEROAGGREGATIVE E. COLI (EAEC) Not detected Not detected BY PCR (test code = 1775565) ENTEROPATHOGENIC E. COLI (EPEC) Not detected Not detected BY PCR (test code = 6450312) ENTEROTOXIGENIC E. COLI (ETEC) Not detected Not detected LT/ST BY PCR (test code = 3553612) SHIGA-LIKE TOXIN-PRODUCING E. Not detected Not detected COLI (STEC) STX1/STX2 (test code = 5468996) E. COLI O157 (PCR) (test code = 9332742) SHIGELLA/ENTEROINVASIVE E. COLI Not detected Not detected (EIEC) BY PCR (test code = 3692700) CRYPTOSPORIDIUM (PCR) (test code Not detected Not detected = 20160606) CYCLOSPORA CAYETANENSIS (PCR) Not detected Not detected (test code = 1113101) ENTAMOEBA HISTOLYTICA (PCR) Not detected Not detected (test code = 20160629) GIARDIA LAMBLIA (PCR) (test code Not detected Not detected = 20160630) ADENOVIRUS F 40/41 (PCR) (test Not detected Not detected code = 20160701) ASTROVIRUS (PCR) (test code = Not detected Not detected 20160702) NOROVIRUS GI/GII (PCR) (test Not detected Not detected code = 20160703) ROTAVIRUS A (PCR) (test code = Not detected Not detected 20160704) SAPOVIRUS (I, II, IV, V) BY PCR Not detected Not detected (test code = 20160705) VIBRIO (PARAHAEMOLYTICUS, Not detected Not detected VULNIFICUS) (test code = 1179248) Other viruses, parasites and bacteria not targeted by this PCR panel cannot be excluded; therefore clinical correlation and follow up of serology, culture results, and other molecular studies is required. The results are not intended to be used as the sole means for clinical diagnosis or patient management decisions. This sample was tested at the [facility] Molecular Diagnostics Laboratory using the [employer] Gastrointestinal Panel. It is FDA cleared and has been verified and approved by the [facility] Molecular Diagnostics Laboratory for clinical use. This laboratory is CLIA-certified and College ofAmerican Pathologists (CAP)-accredited to perform high complexity testing.POCT-GLUCOSE [id number] 16:37:04 Test Item Value Reference Range Interpretation Comments POC-GLUCOSE METER 104 mg/dL 70-110 : TESTED A T [facility] [address] (MARQUEZ) (test code [facility] [address], = 1538) [facility] [address]: Department Sales Manager/Techni cristina ID = [id number] for Tabitha Toribio TROPONIN [id number] 13:49:07 Test Item Value Reference Range Interpretation Comments TROPONIN I (MARQUEZ) (test code = 1.43 ng/mL 0.00-0.15 [facility]) Troponin I (TnI) levels must be [...] failure, acidosis, acute neurological disease, and persistent tachyarrhythmia.Department Sales Manager ID - [id number] Echo W/Doppler(CW/PW/Color)2022-02-08 12:43:16Ejection FractionSLEH ECHO HEART[facility] Echo W/Doppler(CW/PW/Color) 2022-02-08 12:43:16Ejection FractionSLEH ECHO [facility]LAB [facility] [id number] 12:09:27 Test Item Value Reference Range Interpretation Comments POC-GLUCOSE METER 106 mg/dL 70-110 : TESTED A [facility]17 ([facility]) (test code [facility] [address], = 1538) [facility] [address]: Department Sales Manager/Techni cristina ID = [id number] for Dapr coreynt, Tabitha Clostridium difficile GDH [id number] 11:58:11 Test Item Value Reference Range Interpretation Comments C. Difficle Toxin Negative Negative (test code = 4099895438) C. Difficile GDH Negative Negative No indicati on of Antigen (test code = Clostri dium 8779822870) difficile infection and n o colonization. Discontinue enteric isolati on and therapy. GABINO (test code = Testing performed GABINO) by [employer] Rapid Cassette Assay. For GDH, published sensitivity of the assay is 98.7% compared to cytotoxicity testing. For Toxin AB, published sensitivity is 87.8% and specificity 99.4% compared to cytotoxicity testing.Verificati on of kit performance was done by the [facility] Microbiology Lab prior to clinical use. Lab Interpretation Normal (test code = 60033-5) [facility] HospitalClostridium difficile GDH [id number] 11:58:11 Test Item Value Reference Range Interpretation Comments C. Difficle Toxin Negative Negative (test code = 7587125480) C. Difficile GDH Negative Negative No indicati on of Antigen (test code = Clostri dium 6840174875) difficile infection and n o colonization. Discontinue enteric isolati on and therapy. GABNIO (test code = Testing performed GABINO) by [employer] Rapid Cassette Assay. For GDH, published sensitivity of the assay is 98.7% compared to cytotoxicity testing. For Toxin AB, published sensitivity is 87.8% and specificity 99.4% compared to cytotoxicity testing.Verificati on of kit performance was done by the [facility]biology Lab prior to clinical use. Lab Interpretation Normal (test code = 51880-3) [facility]. DIFFICILE GDH [id number] 11:58:11 Test Item Value Reference Range Interpretation Comments CDT TOXIN (test code Negative Negative = 5857097611) CDT GDH ANTIGEN (test Negative Negative No ind ication of code = 8176019824) Clostridi um difficile infection and n o colonization. Discontinue ent mindy isolation and t herapy. Testing performed by [employer] Rapid Cassette Assay. For GDH, published sensitivity of the assay is 98.7% compared to cytotoxicity testing. For Toxin AB, published sensitivity is 87.8% and specificity 99.4% compared to cytotoxicity testing.Verification of kit performance was done by the [facility] prior to clinical use.Urinalysis w/Microscopic + Reflex to [id number] 11:41:47 Test Item Value Reference Range Interpretation Comments Color, UA (test code = Yellow 5778-6) Clarity, UA (test code = Clear 5767-9) Specific [place], UA 1.015 1.001-1.035 (test code = 5811-5) pH, UA (test code = 5.0 5.0-8.0 5803-2) Protein, UA (test code = 30 mg/dL Negative A 73815-7) Glucose, UA (test code = 250 mg/dL Negative A 365) Ketones, UA (test code = Negative Negative 2514-8) Bilirubin, UA (test code Negative Negative = 90748-4) Blood, UA (test code = Large Negative A 84549-8) Nitrite, UA (test code = Negative Negative 5802-4) Leukocytes, UA (test Trace Negative A code = 5799-2) Urobilinogen, UA (test 0.2 mg/dL 0.2-1.0 code = 65075-7) Bacteria, UA (test code Few = 93185-4) RBC, UA (test code = 5-10 See_Comment [Autom ated message] 799-7) The system Epoch generated this result transmit lópez reference range : /HPF. The refer ence range was not u sed to interpret th is result as normal/abnormal . WBC, UA (test code = 5-10 See_Comment [Autom ated message] 85362-3) The system Epoch generated this result transmit lópez reference range : /HPF. The refer ence range was not u sed to interpret th is result as normal/abnormal . SQUAMOUS EPITHELIAL <5 See_Comment [Automa lópez message] (test code = 27446-1) The sy stem which generated this result transmit lópez reference range : /HPF. The refer ence range was not u sed to interpret th is result as normal/abnormal . Specimen Source (test code = 2795) Lab Interpretation (test Abnormal code = 01384-5) [facility] Hospital[facility]inalysis w/Microscopic + Reflex to Culture 2022-02-08 11:41:47 Test Item Value Reference Range Interpretation Comments Color, UA (test code = Yellow 5778-6) Clarity, UA (test code = Clear 5767-9) Specific [place], UA 1.015 1.001-1.035 (test code = 5811-5) pH, UA (test code = 5.0 5.0-8.0 5803-2) Protein, UA (test code = 30 mg/dL Negative A 52830-3) Glucose, UA (test code = 250 mg/dL Negative A 365) Ketones, UA (test code = Negative Negative 2514-8) Bilirubin, UA (test code Negative Negative = 30079-5) Blood, UA (test code = Large Negative A 25932-0) Nitrite, UA (test code = Negative Negative 5802-4) Leukocytes, UA (test Trace Negative A code = 5799-2) Urobilinogen, UA (test 0.2 mg/dL 0.2-1.0 code = 69028-6) Bacteria, UA (test code Few = 94671-1) RBC, UA (test code = 5-10 See_Comment [Autom ated message] 799-7) The system Epoch generated this result transmit lópez reference range : /HPF. The refer ence range was not u sed to interpret th is result as normal/abnormal . WBC, UA (test code = 5-10 See_Comment [Autom ated message] 01032-5) The system whic h generated this result transmit lópez reference range : /HPF. The refer ence range was not u sed to interpret th is result as normal/abnormal . SQUAMOUS EPITHELIAL <5 See_Comment [Automa lópez message] (test code = 56236-1) The sy stem which generated this result transmit lópez reference range : /HPF. The refer ence range was not u sed to interpret th is result as normal/abnormal . Specimen Source (test code = 2795) Lab Interpretation (test Abnormal code = 00927-4) [facility] [id number] 11:41:47 Test Item Value Reference Range Interpretation [...] = 1663) SOURCE(BEAKER) (test code = 2795) [id number] 06:53:46 Test Item Value Reference Range Interpretation Comments PROCALCITONIN (BEAKER) (test code = > ng/mL <0.05 3036) SEPSIS RISK (ng/mL)Low: 0.05-0.50Intermediate: 0.51-2.00High: >=2.01RAD, CHEST, 1 VIEW, NON [id number] 06:35:00Reason for exam:->Chest pain, SOBShould this be performed at the bedside?->Yes [facility] CENTERName: REMINGTON FARR : 1970 Sex: MFINAL REPORT EXAM/TECHNIQUE: Single view frontal radiograph of the chest. INDICATION: Chest pain, shortness of breath. COMPARISON: None. FINDINGS: Devices/Objects: None. Lungs: No focal consolidation. No pleural effusion. No pneumothorax. Heart/Mediastinum: No cardiomegaly. No interstitial thickening. Osseous: No acute osseous process. No suspicious osseous lesion. Upper abdomen: Unremarkable. Impression: No acute cardiopulmonary process. Signed: Manuel Starks MDReport Verified Date/Time: 02/08/2022 06:35:11 [id number] 06:25:41 Test Item Value Reference Range Interpretation Comments FERRITIN (BEAKER) (test code = 174.90 ng/mL 22.00-322.00 361) Department Sales Manager ID - LITOCOMPREHENSIVE METABOLIC [id number] 06:24:00 Test Item Value Reference Range Interpretation [...] 347) EGFR (BEAKER) (test 51 mL/min/1.73 ESTIMA LÓPEZ GFR IS code = 1092) sq m NOT ACCURATE CREATININE CLEARANCE IN PREDICTING GLOMERULAR FILTRATION RATE . ESTIMATED GFR I S NOT APPLICABLE FOR DIALYSIS PATIEN TS. Department Sales Manager ID - LITOOperator ID - LITOOperator ID - LITOOperator ID - LITOOperator ID - LITOOperator ID - LITOOperator ID - LITOOperator ID - LITOOperator ID - LITOOperator ID - LITOOperator ID - LITOOperator ID - LITOOperator ID - LITOOperator ID - LITOOperator ID - LITOOperator ID - LITOLIPID [id number] 06:23:35 Test Item Value Reference Range Interpretation [...] Borderline 130-159 High 160-189 Very High >=190 Department Sales Manager ID - LITOOperator ID - LITOOperator ID - [id number] 06:23:22 Test Item Value Reference Range Interpretation Comments MAGNESIUM (BEAKER) (test code = 1.7 mg/dL 1.5-3.0 627) Department Sales Manager ID - LITOOperator ID - LITOOperator ID - LITOOperator ID - LITOIRON, TIBC, % SAT. (WITHOUT FERRITIN)2022-02-08 06:22:39 Test Item Value Reference Range Interpretation Comments IRON (BEAKER) (test code = 547) 12.0 ug/dL 45.0-170.0 L TOTAL IRON BINDING CAPACITY 206 ug/dL 250-550 L (BEAKER) (test code = 769) IRON % SATURATION (2) (BEAKER) 6 % 20-55 L (test code = 2590) Department Sales Manager ID - LITOOperator ID - [id number] 06:19:55 Test Item Value Reference Range Interpretation Comments PHOSPHORUS (BEAKER) (test code = 2.9 mg/dL 2.5-4.5 604) Department Sales Manager ID - LITOCBC W/PLT COUNT & AUTO [id number] 06:17:13 Test Item Value Reference Range Interpretation [...] B-TYPE NATRIURETIC PEPTIDE 2087 pg/mL 0-100 H (MARQUEZ) (test code = 700) Department Sales Manager ID - LITOTROPONIN [id number] 06:14:48 Test Item Value Reference Range Interpretation Comments TROPONIN I (MARQUEZ) (test code = 1.48 ng/mL 0.00-0.15 HH [...] failure, acidosis, acute neurological disease, and persistent tachyarrhythmia.Department Sales Manager ID - LITOHEMOGLOBIN A1C 2022-02-08 06:08:30 Test Item Value Reference Range Interpretation Comments HEMOGLOBIN A1C (MARQUEZ) (test code = 12.6 % 4.3-6.1 H 368) Department Sales Manager ID - LITOLACTIC ACID, [id number] 06:04:47 Test Item Value Reference Range Interpretation Comments LACTATE BLOOD 1.79 mmol/L See_Comment [Automated me ssage] VENOUS (2) (MARQUEZ) The syst em which (test code = 2872) generated this result transmitted ref erence range: 0.50-<2. 00. The reference range was not used to interpr et this result as normal/abnormal . Department Sales Manager ID - LITOOperator ID - LITOOperator ID - LITOOperator ID - DOUGLAS PROTHROMBIN [id number] 06:01:25 Test Item Value Reference Range Interpretation Comments PROTIME (MARQUEZ) 13.4 seconds 9.3-12.0 H Final Infor mation (test code = 759) (Auto Outp ut) INR (ILIAAKER) (test 1.24 See_Comment Final Inf ormation code [...] 2.5-3.5 for patients with mechanical heart valves.POCT-GLUCOSE [id number] 05:41:10 Test Item Value Reference Range Interpretation Comments POC-GLUCOSE METER 290 mg/dL 70-110 H : TESTED A T SLSL 1317 (BEAKER) (test code [address], = 1538) [facility] 77 478: Department Sales Manager/Techni cristina ID = [id number] for Danii Joseph POCT-GLUCOSE [id number] 12:52:00 Test Item Value Reference Range Interpretation Comments POC-GLUCOSE METER 286 mg/dL 70-110 H : TESTED A T [facility] (BEAKER) (test code [address], [address] = 1538) [place] [address]: Department Sales Manager/Techni cristina ID = [id number] for AXEL HONEYCUTT
[2022-11-01 21:02] LABS: Absolute Lymphocytes (CBC) 1.7 K/uL (0.7-4.9); Hematocrit 30.7 % (39.6-49.0); Lymphocytes % 23.1 % (15.3-44.8); MCV 76.1 fL (80-100); RBC Red Blood Cell Count 4.04 M/uL (4.33-5.43)
--- NOTE | 2022-11-01 21:10 | RAD REPORT ---
EXAM DESCRIPTION: Noe Single View11/01/2022 8:59 pm CLINICAL HISTORY: Chest pain COMPARISON: none FINDINGS: Artifact overlies the chest. The lateral costophrenic sulci are not entirely included in the field of view and are not evaluated The visualized lungs appear clear of acute infiltrate. The heart is normal size IMPRESSION: No acute abnormalities displayed
[2022-11-01 21:15] LABS: Protime INR 1.15
[2022-11-01 21:24] LABS: Albumin 3.6 g/dL (3.4-5.0); Bilirubin Direct 0.2 mg/dL (0-0.2); Bilirubin Total 0.5 mg/dL (0.2-1.0); Potassium 4.2 mmol/L (3.5-5.1); Protein, Total 7.5 g/dL (6.4-8.2); Troponin High Sensitivity 12.6 pg/mL (<58.9)
--- NOTE | 2022-11-01 21:48 | ER ---
Nurse's Notes [facility] Name: Royce F[facility] Age: 52 yrs Sex: Male : 1970 Arrival Date: 11/01/2022 Time: 20:11 Bed 26 Private MD: Diagnosis: Hypotension, unspecified Presentation: 11/01 20:12 Chief complaint: EMS states: "We got called out for a low blood pressure. He got a home tw5 reading in the 70's and we got the same with a manual blood pressure. Our first reading on the machine was also in the 70's until we put in him in trendelenburg then we got a his blood pressure to increase into the 100's. He has a lifevest on him because he states that he had coded last time he was at [facility]. ". Ebola Screen: Patient negative for fever greater than or equal to 101.5 degrees Fahrenheit, and additional compatible Ebola Virus Disease symptoms Patient denies exposure to infectious person. Patient denies travel to an Ebola-affected area in the 21 days before illness onset. Initial Sepsis Screen: Does the patient meet any 2 criteria? Systolic BP < 90 mmHg. Does the patient have a suspected source of infection? No. Patient's initial sepsis screen is negative. Risk Assessment: Do you want to hurt yourself or someone else? Patient reports no desire to harm self or others. Onset of symptoms is unknown. 20:12 Method Of Arrival: EMS: [facility] tw5 20:12 Acuity: SANDRO 2 tw5 20:58 Coronavirus screen: Vaccine status: Patient reports receiving the 2nd dose of the covid tw5 vaccine. Loot!. Triage Assessment: 20:58 General: Appears in no apparent distress. Behavior is calm, cooperative, appropriate tw5 for age. Historical: - Home Meds: 21:39 Aspirin Oral [Active]; carvedilol Oral [Active]; Entresto Oral [Active]; glaucoma drop eh3 [Active]; Lasix Oral [Active]; metformin [Active]; Plavix Oral [Active]; - PMHx: 21:39 Congestive heart failure; diabetes mellitus; Hypertensive disorder; Myocardial eh3 infarction; - PSHx: 21:39 cardiac stent x 2; eh3 - Immunization history:: Flu vaccine is up to date. - Social history:: Smoking status: Patient denies any tobacco usage or history of. Screenin:30 [facility] ED Fall Risk Assessment (Adult) History of falling in the last 3 months, 3 including since admission No falls in past 3 months (0 pts) Confusion or Disorientation No (0 pts) Intoxicated or Sedated No (0 pts) Impaired Gait No (0 pts) Mobility Assist Device Used No (0 pt) Altered Elimination No (0 pt) Score/Fall Risk Level 0 - 2 = Low Risk. Abuse screen: Denies threats or abuse. Denies injuries from another. Nutritional screening: No deficits noted. Tuberculosis screening: No symptoms or risk factors identified. Assessment: 20:30 General: Appears in no apparent distress. uncomfortable, Behavior is cooperative, eh3 appropriate for age. Pain: Denies pain. Neuro: Level of Consciousness is awake, alert, obeys commands, Oriented to person, place, time, situation. Cardiovascular: Capillary refill < 3 seconds Patient's skin is warm and dry. Respiratory: Airway is patent Respiratory effort is even, unlabored, Respiratory pattern is regular, symmetrical. GI: No signs and/or symptoms were reported involving the gastrointestinal system. : No signs and/or symptoms were reported regarding the genitourinary system. EENT: No signs and/or symptoms were reported regarding the EENT system. Derm: No signs and/or symptoms reported regarding the dermatologic system. Musculoskeletal: No signs and/or symptoms reported regarding the musculoskeletal system. 21:30 Reassessment: Patient appears in no apparent distress at this time. Patient and/or eh3 family updated on plan of care and expected duration. Pain level reassessed. Patient is alert, oriented x 3, equal unlabored respirations, skin warm/dry/pink. Vital Signs: 20:13 BP 108 / 66; Pulse 82; Resp 20; Temp 97.8(O); Pulse Ox 100% on R/A; Weight 47.63 kg; zm Height 5 ft. 5 in. (165.10 cm); 20:30 BP 104 / 65; Pulse 81; Resp 14; Pulse Ox 100% on R/A; eh3 21:30 BP 113 / 69; Pulse 80; Resp 15; Pulse Ox 100% ; eh3 20:13 Body Mass Index 17.47 (47.63 kg, 165.10 cm) Vitals: 20:30 Cardiac Rhythm Assessment Sinus rhythm. 3 ED Course: 20:11 Patient arrived in ED. tw5 20:12 Renata Muhammad MD is Attending Physician. sp3 20:12 Lisstete Walter, RN is Primary Nurse. 3 20:14 Triage completed. tw5 20:30 Patient has correct armband on for positive identification. Bed in low position. Call [facility] light in reach. Side rails up X2. Adult w/ patient. Client placed on continuous cardiac and pulse oximetry monitoring. NIBP monitoring applied. Door closed. Noise minimized. Warm blanket given. Pillow given. 20:30 Arm band placed on. 3 20:54 Basic Metabolic Panel Sent. 20:54 CBC with Diff Sent. 20:54 LFT's Sent. zm 20:55 PT-INR Sent. 20:55 Troponin HS Sent. 21:01 XRAY Chest (1 view) In Process Unspecified. EDMS 22:03 No provider procedures requiring assistance completed. IV discontinued, intact, 3 bleeding controlled, No redness/swelling at site. Pressure dressing applied. Administered Medications: No medications were administered Medication: 22:03 VIS not applicable for this client. 3 Outcome: 21:47 Discharge ordered by . sp3 22:04 Discharged to home via wheelchair, with family. 3 22:04 Condition: stable 22:04 Discharge instructions given to patient, family, Instructed on discharge instructions, follow up and referral plans. Demonstrated understanding of instructions, follow-up care. 22:04 Patient left the ED. 3 Signatures: Dispatcher [employer] EDCT Renata Muhammad MD MD 3 Shantel Corrales 5 Lissette Walter, RN RN 3 Pavithra Wise
--- NOTE | 2022-11-01 21:48 | EDPHYS ---
Physician Documentation [facility] Name: Royce Farr Age: 52 yrs Sex: Male : 1970 Arrival Date: 11/01/2022 Time: 20:11 Bed 26 Private MD: ED Physician Renata Muhammad HPI: 11/01 21:20 This 52 yrs old Male presents to ER via EMS with complaints of Blood Pressure Problem. [facility] 21:20 52-year-old male with history of ST elevation LA, hypertension, prior admissions to [address] in the ICU for cardiovascular disease now presents with chief complaint "low blood pressure" at home on home machine. Patient states that his blood pressure was in the 70-80 systolic range with only complaint or symptom being lightheadedness. He denies any chest pain, shortness of breath, back pain, abdominal pain, pain down his left arm, jaw pain, or any other anginal equivalents. All symptoms are now resolved and patient comes to the ED to "get checked out". ROS is negative for fever, headache, neck pain, back pain, chest pain, shortness of breath, abdominal pain, nausea, vomiting, diarrhea, rash, trauma, known travel history, known sick contacts, or any other aspects at this time.. Historical: - Home Meds: 21:39 Aspirin Oral [Active]; carvedilol Oral [Active]; Entresto Oral [Active]; glaucoma drop eh3 [Active]; Lasix Oral [Active]; metformin [Active]; Plavix Oral [Active]; - PMHx: 21:39 Congestive heart failure; diabetes mellitus; Hypertensive disorder; Myocardial eh3 infarction; - PSHx: 21:39 cardiac stent x 2; eh3 - Immunization history:: Flu vaccine is up to date. - Social history:: Smoking status: Patient denies any tobacco usage or history of. ROS: 21:22 Constitutional: Negative for fever, chills, and weight loss, Eyes: Negative for injury, sp3 pain, redness, and discharge, ENT: Negative for injury, pain, and discharge, Neck: Negative for injury, pain, and swelling, Respiratory: Negative for shortness of breath, cough, wheezing, and pleuritic chest pain, Abdomen/GI: Negative for abdominal pain, nausea, vomiting, diarrhea, and constipation, Back: Negative for injury and pain, MS/Extremity: Negative for injury and deformity, Skin: Negative for injury, rash, and discoloration, Psych: Negative for depression, anxiety, suicide ideation, homicidal ideation, and hallucinations, Allergy/Immunology: Negative for hives, rash, and allergies, Endocrine: Negative for neck swelling, polydipsia, polyuria, polyphagia, and marked weight changes, Hematologic/Lymphatic: Negative for swollen nodes, abnormal bleeding, and unusual bruising. 21:22 All other systems are negative. Exam: 21:25 Constitutional: This is a well developed, well nourished patient who is awake, alert, sp3 and in no acute distress. Head/Face: Normocephalic, atraumatic. Eyes: Pupils equal round and reactive to light, extra-ocular motions intact. Lids and lashes normal. Conjunctiva and sclera are non-icteric and not injected. Cornea within normal limits. Periorbital areas with no swelling, redness, or edema. ENT: Nares patent. No nasal discharge, no septal abnormalities noted. External auditory canals are clear. Oropharynx with no redness, swelling, or masses, exudates, or evidence of obstruction, uvula midline. Mucous membranes moist. Neck: Trachea midline, no thyromegaly or masses palpated, and no cervical lymphadenopathy. Supple, full range of motion without nuchal rigidity, or vertebral point tenderness. No Meningismus. Chest/axilla: Normal chest wall appearance and motion. Nontender with no deformity. No lesions are appreciated. Cardiovascular: Regular rate and rhythm with a normal S1 and S2. No gallops, murmurs, or rubs. Normal PMI, no JVD. No pulse deficits. Respiratory: Lungs have equal breath sounds bilaterally, clear to auscultation and percussion. No rales, rhonchi or wheezes noted. No increased work of breathing, no retractions or nasal flaring. Abdomen/GI: Soft, non-tender, with normal bowel sounds. No distension or tympany. No guarding or rebound. No evidence of tenderness throughout. Back: No spinal tenderness. No costovertebral tenderness. Full range of motion. Skin: Warm, dry with normal turgor. Normal color with no rashes, no lesions, and no evidence of cellulitis. MS/ Extremity: Pulses equal, no cyanosis. Neurovascular intact. Full, normal range of motion. Neuro: Awake and alert, GCS 15, oriented to person, place, time, and situation. Cranial nerves II-XII grossly intact. Motor strength 5/5 in all extremities. Sensory grossly intact. Cerebellar exam normal. Normal gait. Psych: Awake, alert, with orientation to person, place and time. Behavior, mood, and affect are within normal limits. 21:25 ECG was reviewed by the Attending Physician. EKG demonstrates normal sinus rhythm at 79 bpm with normal intervals, rightward axis, poor R wave progression and nonspecific diffuse ST/T changes without evidence of acute ischemia. Vital Signs: 20:13 BP 108 / 66; Pulse 82; Resp 20; Temp 97.8(O); Pulse Ox 100% on R/A; Weight 47.63 kg; zm Height 5 ft. 5 in. (165.10 cm); 20:30 BP 104 / 65; Pulse 81; Resp 14; Pulse Ox 100% on R/A; eh3 21:30 BP 113 / 69; Pulse 80; Resp 15; Pulse Ox 100% ; eh3 20:13 Body Mass Index 17.47 (47.63 kg, 165.10 cm) zm MDM: 21:01 Patient medically screened. sp3 21:27 Data reviewed: vital signs, nurses notes, lab test result(s), EKG, radiologic studies. sp3 ED course: 52-year-old male with extensive cardiac history now with a resolved hypotensive episode at home with only complaint being lightheadedness which is also resolved. I reviewed his EKG I do not believe patient is having an acute cardiac event. However we will assess laboratory values including troponin and chest x-ray. If work-up is negative, likely discharge patient home given full resolution of symptoms. Patient is okay with this plan he lives 5 minutes away and can return at any time if his symptoms worsen.. 21:46 ED course: Patient continues to have no further symptoms and blood pressure remains sp3 normal. Values reviewed and troponin is negative. At this point we will discharge patient home with PCP follow-up and return back if symptoms return. Patient is okay with the plan and thanked us for his care.. 11/01 20:18 Order name: Basic Metabolic Panel; Complete Time: 21:31 sp3 11/01 20:18 Order name: CBC with Diff sp3 11/01 20:18 Order name: LFT's; Complete Time: 21:31 sp3 11/01 20:18 Order name: PT-INR; Complete Time: 21:31 sp3 11/01 20:18 Order name: Troponin HS; Complete Time: 21:31 sp3 11/01 21:52 Order name: CBC Smear Scan [facility] 11/01 20:18 Order name: XRAY Chest (1 view); Complete Time: 21:31 sp3 11/01 20:18 Order name: EKG; Complete Time: 20:19 sp3 11/01 20:18 Order name: Cardiac monitoring; Complete Time: 20:39 sp3 11/01 20:18 Order name: EKG - Nurse/Tech; Complete Time: 21:19 sp3 11/01 20:18 Order name: IV Saline Lock; Complete Time: 20:54 sp3 11/01 20:18 Order name: Labs collected and sent; Complete Time: 20:54 sp3 11/01 20:18 Order name: O2 Per Protocol; Complete Time: 20:39 sp3 11/01 20:18 Order name: O2 Sat Monitoring; Complete Time: 20:39 sp3 Administered Medications: No medications were administered Disposition Summary: 11/01/22 21:47 Discharge Ordered Location: Home sp3 Condition: Stable sp3 Diagnosis - Hypotension, unspecified sp3 Followup: sp3 - With: Private Physician - When: Upon discharge from the Emergency Department - Reason: Continuance of care Discharge Instructions: - Discharge Summary Sheet sp3 - Near-Syncope sp3 Forms: - Medication Reconciliation Form sp3 - Thank You Letter sp3 - Antibiotic Education sp3 - Prescription Opioid Use sp3 Signatures: Dispatcher [employer] Renata Braun MD MD sp3 Shantel Corrales 5 Lissette Walter, NEY RN eh3
[2022-11-01 21:52] LABS: Anisocytosis 3+; Blood Morphology Comment NOTED (NOT SEEN); Platelet Estimate ADEQ; Poikilocytosis 2+; White Blood Cell Scan OK (OK)
[2022-11-01 22:17] VITALS: TEMP 97.8; O2SAT 100
[2022-11-01 22:19] VITALS: BP 113/69
--- NOTE | 2022-11-02 15:22 | EKG ---
Test Date: 2022-11-01 Test Time: 21:14:45 Continuous Improvement Lead: PRASHANT MEASUREMENT RESULTS: Intervals: Rate: 79 IL: 126 QRSD: 88 QT: 352 QTc: 403 [place]: P: 69 IL: 126 QRS: -37 T: 71 INTERPRETIVE STATEMENTS: Normal sinus rhythm Right atrial enlargement Left axis deviation Low voltage QRS Cannot rule out Anterior infarct, age undetermined Abnormal ECG Compared to ECG 09/28/2022 10:56:18 Atrial abnormality now present Left-axis deviation now present Ventricular premature complex(es) no longer present Prolonged QT interval no longer present Myocardial infarct finding still present Electronically Signed On 11-02-22 15:20:32 MOLD BURNER by Hector Kirkland
== END 2022-11-01 22:04 | disposition home or self-care (01) ==
LOC: ER 20:05
DX: I95.9 Hypotension, unspecified (principal); I50.9 Heart failure, unspecified; E11.9 Type 2 diabetes mellitus without complications; I10 Essential (primary) hypertension; Z79.82 Long term (current) use of aspirin; Z79.01 Long term (current) use of anticoagulants; Z95.818 Presence of other cardiac implants and grafts
CPT/HCPCS: 36415; 71045; 80048; 80076; 84484; 85025; 85610; 93005; 99283

== ENCOUNTER 2022-12-11 15:22 | Emergency (ER) | payer BC ==
--- OUTSIDE RECORDS SUMMARY | 2022-12-11 15:31 | XMS REPORT | Continuity of Care Document ---
:1970 Author Organization [facility] t Address [address] [place] [address] Care Team Providers Name Role Phone SHARPLESS Primary Care Physician Unavailable ETTA NAVARRETE Attending Clinician Unavailable ETTA NAVARRETE Attending Clinician Unavailable Megan Guadarrama MD Attending Clinician Aniyah Nava RN Attending Clinician Unavailable Marcie Rodríguez MA Attending Clinician Unavailable ROBIN REDDY Attending Clinician Unavailable JESUS REINA Attending Clinician Unavailable Gilson Lindquist Attending Clinician Jenniffer Adam MD Attending Clinician Miguel Quinteros MD Attending Clinician Clifton PEÑA, Flavio Mosquera Attending Clinician Jesus Amos MD Attending Clinician Clif Barone DO Attending Clinician Garrett MD, Kojo M. Attending Clinician Marco PEÑA, Derek Ross Attending Clinician Merari PEÑA, Marshall Attending Clinician Roman BOYLE, Omayra Attending Clinician Ac Phillips CRNA Attending Clinician [phone] MA Attending Clinician Unavailable Ab Pierre MA Attending Clinician Unavailable Mery PEÑA, Rosie Correia Attending Clinician Yovanny PEÑA, Monika Attending Clinician MONIKA SNELL Attending Clinician Unavailable Ada PEÑA, Valerie Zhao' Attending Clinician [phone] ETTA NAVARRETE Admitting Clinician Unavailable JENNIFFER ADAM Admitting Clinician Unavailable MERY, ROSIE CORREIA Admitting Clinician Unavailable Payers Payer Name Policy Type Policy Number Effective Date Expiration Date [facility] G-volution [id number] 2014 00:00:00 PRETP OUT OF STATE [facility] [id number] - PPO - [facility] GENERIC-FIRST [id number] [facility] Problems Condition Condition Condition Status Onset Resolution Last Treating Co mments Source Name Details Category Date Date Treatment Clinician Date HFrEF HFrEF Disease Active [facility] (heart (heart 1 st failure failure 00:00: Hospita with with 00 l reduced reduced ejection ejection fraction) fraction) Nodule of Nodule of Disease Active Met hodi middle middle 1 st lobe of lobe of 00:00: Hospita right lung right lung 00 l Essential Essential Disease Active [facility] hypertensi hypertensi 1- st on on 00:00: Hospita 00 l Mixed Mixed Disease Active [facility] hyperlipid hyperlipid 1- st emia emia 00:00: Hospita 00 l 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 00:00: Hospit a with with 00 l diabetic diabetic polyneurop polyneurop athy, with athy, with long-term long-term current current use of use of insulin insulin Acute Acute Disease Active 2021-10 [facility] resp[address] respir[address] y failure y failure 00:00: Hosp korina with with 00 l hypoxia hypoxia 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 Added automatic ally from request for surgery [id number] Shortness Shortness Disease Active 2021-10 Overview: Methodi of breath of breath 12-06 Formattin s t 00:00: g of this Hospita 00 note l might be different from the original. Added automatic ally from request for surgery [id number] Angina Angina Disease Active 2021-10 [facility] pectoris pectoris [facility] [address] 00:00: Hospita 00 l Ischemic Ischemic Disease Active Metho di cardiomyop cardiomyop 9-13 st athy athy 00:00: Hospita 00 l CAD in CAD in Disease Active [facility] washoe washoe 6-14 st artery artery 00:00: Hospita 00 [...] Medical 00 Center Hypomagnes Hypomagnes Disease Active 2022-[address] [facility] emia 4[facility] Leucocytos Leucocytos Disease Active [facility] is is 4[facility]13 [facility] Elevated Elevated Disease Active [facility] procalcito procalcito 4-13 [facility] ric ric 00:00: Medical 00 Center 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 UPDATED BY ICD10 SNOMED/IM O UPDATES Hypertensi Hypertensi Disease Active C HI [facility] on on [facility] Uncontroll Uncontroll Disease Active C HI St ed type 2 ed type 2 [facility] diabetes diabetes Medica l mellitus mellitus Center with with hyperglyce hyperglyce abelardo abelardo Pain, Pain, Diagnosis Active Common joint, joint, [facility] shoulder, shoulder, - CH I right right [facility] Subacromia Subacromia Diagnosis Active Common l bursitis l bursitis Sp lance of right of right - [facility] shoulder shoulder St joint joint [facility] Allergies, Adverse Reactions, Alerts Allergy Allergy Status Severity Reaction(s) Onset Inactive Treating Comm ents Source Name Type Date Date Clinician NO KNOWN Allergy Active [facility] ALLERGIE S Family History Family Member Diagnosis Comments Start Date Stop Date Source Natural father Cancer [facility] Natural father Diabetes [facility] Natural father Hearing loss [facility] Natural father Heart attack [facility] Natural father Heart disease [facility] Natural father Heart failure [facility] Maternal grandfather Heart disease [facility] mother Cancer [facility] Social History Social Habit Start Date Stop Date Quantity Comments Source History SDOH [facility] Transport Non-[facility] History of tobacco Current smoker Ma thodi use [facility] Alcohol intake 2022-11-28 2022-11-28 Ex-drinker [facility] 00:00:00 00:00:00 (finding) [facility] Cigarettes smoked 2022-04-11 2022-04-11 [facility] current (pack per 00:00:00 00:00:00 Hospita l day) - Reported Cigarette 2022-04-11 2022-04-11 [facility] pack-years 00:00:00 00:00:00 Hospital History [facility] 2022-02-08 2022-02-[address] [facility] Transport Med 00:00:00 00:00:[address] History [facility] 2022-02-08 2022-02-[address] [facility] Housing Unable to 00:00:00 00:00:00 Medical Center Pay History [facility] 2022-02-08 2022-02-[address] [facility] Housing Places 00:00:00 00:00:00 Medical Ce nter Lived History [facility] 2022-02-08 2022-02-[address] [facility] Housing Homeless 00:00:00 00:00:00 Medical Center Last Year Tobacco use and 2015-05-12 2015-05-[address] [facility] exposure 00:00:00 00:00:00 Medical Center Sex Assigned At [address] [facility] 00[facility]00:00 00:[facility]:00 Medical Center Smoking Status Start Date Stop Date Source Ex-smoker 2022-11-22 00:00:00 2022-11-22 00:00:[facility] Medications Ordered Filled Start Stop Current Ordering Indication Dosage Frequency Signature Comments Components Source Medication Medication Date Date Medication? Clinician (SIG) Name Name aspirin Yes 81mg QD Take 1 [facility] (ECOTRIN) - tablet (81 st 81 MG 09:37: mg total) Hospita enteric 15 by mouth l coated daily. tablet dapaglifloz Yes 1{tbl} Q2D Take 1 Me thodi in-metformi - tablet by st n 10-1,000 09:37: mouth Hospit a mg tablet, 15 every l IR & ER, other day. biphasic 24hr montelukast Yes 10mg QD Take 1 Meth stewart (SINGULAIR) 1-31 tablet (10 st 10 mg 09:37: mg total) Hospita tablet 15 by mouth l nightly. timolol Yes 1[drp] Q.5D Administer Me thodi (TIMOPTIC) 11-[address] 0.5 % 09:37: into the Hospita ophthalmic 15 left eye 2 l solution (two) times a day. aspirin Yes 81mg QD Take 1 [facility] (ECOTRIN) -03 tablet (81 st 81 MG 10:11: mg total) Hospita enteric 40 by mouth l coated daily. tablet dapaglifloz Yes 1{tbl} Q2D Take 1 Me thodi in-metformi -[address] n 10-1,000 10:11: mouth Hospit a mg tablet, 40 every l IR & ER, other day. biphasic 24hr montelukast Yes 10mg QD Take 1 Meth stewart (SINGULAIR) 10-31 tablet (10 st 10 mg 10:11: mg total) Hospita tablet 40 by mouth l nightly. timolol Yes 1[drp] Q.5D Administer Me thodi (TIMOPTIC) 10-[address] 0.5 % 10:11: into the Hospita ophthalmic 40 left eye 2 l solution (two) times a day. lisinopriL 2021-10- Yes 5mg QD Take 1 Meth stewart (PRINIVIL) - tablet (5 st 5 mg tablet 00:00: 05:59 mg total) Hospita 00 :00 by mouth l daily. metoprolol 2021-10- Yes 12.5mg QD Take 0.5 [facility]i succinate - tablets st XL 00:00: 05:59 (12.5 mg Hospita (TOPROL-XL) 00 :00 total) by l 25 mg 24 hr mouth tablet daily. digOXIN 2021-10- Yes 125ug QD Take 1 Method i (LANOXIN) - tablet st 125 mcg 00:00: 05:59 (125 mcg Hospi ta (0.125 mg) 00 :00 total) by l tablet mouth daily. spironolact 2021-10- Yes 12.5mg QD Take 0.5 Methodi one -27 10- tablets st (ALDACTONE) 00:00: 05:59 (12.5 mg H ospita 25 MG 00 :00 total) by l tablet mouth daily. lisinopriL 2021-10- Yes 5mg QD Take 1 Meth stewart (PRINIVIL) 10-28 tablet (5 st 5 mg tablet 00:00: 05:59 mg total) Hospita 00 :00 by mouth l daily. metoprolol 2021-10- Yes 12.5mg QD Take 0.5 Methodi succinate 10-[address] XL 00:00: 05:59 (12.5 mg Hospita (TOPROL-XL) 00 :00 total) by l 25 mg 24 hr mouth tablet daily. digOXIN 2021-10- Yes 125ug QD Take 1 Method i (LANOXIN) 10-[address] 125 mcg 00:00: 05:59 (125 mcg Hospi ta (0.125 mg) 00 :00 total) by l tablet mouth daily. spironolact 2021-10- Yes 12.5mg QD Take 0.5 Methodi one 10-[address] (ALDACTONE) 00:00: 05:59 (12.5 mg H ospita 25 MG 00 :00 total) by l tablet mouth daily. pantoprazol 2021-10- No 40mg QD Take 1 Met hodi e 11-27 tablet (40 st (PROTONIX) 00:00: 05:59 mg total) H ospita 40 MG EC 00 :00 by mouth l tablet daily for 30 days. pantoprazol 2021-10- Yes 40mg QD Take 1 Met hodi e 11-27 tablet (40 st (PROTONIX) 00:00: 05:59 mg total) H ospita 40 MG EC 00 :00 by mouth l tablet daily for 30 days. sacubitriL- 2021-10- No 1{tbl} Q.5D Take 1 M ethodi valsartan 10-[address] (ENTRESTO) 16:14: 00:00 mouth 2 Hos ernesto 49-51 mg 46 :00 (two) l tablet per times a tablet day. sacubitriL- 2021-10- No 1{tbl} Q.5D Take 1 M ethodi valsartan 10-[address] (ENTRESTO) 16:14: 00:00 mouth 2 Hos ernesto 49-51 mg 46 :00 (two) l tablet per times a tablet day. insulin 2021-10 Yes 8U QD Inject 8 Method i glargine-yf 2-[address] gn 00:00: under the Hospita (Semglee,in 00 skin l sulin daily. glarg-yfgn, Pen) 100 unit/mL (3 mL) insulin pen pen needle, 2021-10 Yes 1{each} QD 1 each M ethodi diabetic 32 2-[address] gauge x 00:00: Hospita 03/13" 00 l needle insulin 2021-10 Yes 8U QD Inject 8 Method i glargine-yf 2-[address] gn 00:00: under the Hospita (Semglee,in 00 skin l sulin daily. glarg-yfgn, Pen) 100 unit/mL (3 mL) insulin pen pen needle, 2021-10 Yes 1{each} QD 1 each M ethodi diabetic 32 2-[address] gauge x 00:00: Hospita 03/13" l needle mexiletine 2021-10- Yes 150mg [id number] Take 1 [facility] (MEXITIL) 10-[id number] 150 MG 00:00: 05:59 3D (150 mg Hospita capsule 00 :00 total) by l mouth every 8 (eight) hours. torsemide 2021-10- Yes 40mg Q.5D Take 2 Metho di (DEMADEX) - tablets st 20 MG 00:00: 05:59 (40 mg Hospita tablet 00 :00 total) by l mouth 2 (two) times a day. magnesium 2021-10- Yes 400mg Q.5D Take 1 Meth stewart oxide -[address] (MAG-OX) 00:00: 05:59 (400 mg Hospi ta 400 mg 00 :00 total) by l (241.3 mg mouth 2 magnesium) (two) tablet times a day. mexiletine 2021-10- Yes 150mg Q.[id number] Take 1 [facility] (MEXITIL) 10-[id number] 150 MG 00:00: 05:59 3D (150 mg Hospita capsule 00 :00 total) by l mouth every 8 (eight) hours. torsemide 2021-10- Yes 40mg Q.5D Take 2 Metho di (DEMADEX) -[address] 20 MG 00:00: 05:59 (40 mg Hospita tablet 00 :00 total) by l mouth 2 (two) times a day. magnesium 2021-10- Yes 400mg Q.5D Take 1 Meth stewart oxide -[address] (MAG-OX) 00:00: 05:59 (400 mg Hospi ta 400 mg 00 :00 total) by l (241.3 mg mouth 2 magnesium) (two) tablet times a day. ferrous 2021-10- No 325mg Q.5D Take 1 Method i sulfate 325 11-[address] (65 FE) MG 00:00: 05:59 (325 mg Hos ernesto tablet 00 :00 total) by l mouth 2 (two) times a day with meals for 30 days. ferrous 2021-10- Yes 325mg Q.5D Take 1 Method i sulfate 325 11-[address] (65 FE) MG 00:00: 05:59 (325 mg Hos ernesto tablet 00 :00 total) by l mouth 2 (two) times a day with meals for 30 days. spironolact 2021-10- No 25mg QD Take 1 Met hodi one 11-26 tablet (25 st (ALDACTONE) 10:37: 00:00 mg total) Hospita 25 MG 05 :00 by mouth l tablet daily. spironolact 2021-10- No 25mg QD Take 1 Met hodi one 11-26 tablet (25 st (ALDACTONE) 10:37: 00:00 mg total) Hospita 25 MG 05 :00 by mouth l tablet daily. spironolact 2021-10- No 25mg QD Take 1 Met hodi one 11-26- tablet (25 st (ALDACTONE) 10:37: 00:00 mg total) Hospita 25 MG 05 :00 by mouth l tablet daily. sacubitril/ 2021-10 Yes Take by Met hodi valsartan 11-[address] (ENTRESTO 09:49: Hospita ORAL) 08 l pioglitazon 2021-10 Yes 15mg QD Take 1 Meth stewart e (ACTOS) 0-03 tablet (15 st 15 MG 00:00: mg total) Hospita tablet 00 by mouth l daily. pioglitazon 2021-10- No 15mg QD Take 1 Met hodi e (ACTOS) 0-03 10-26 tablet (15 st 15 MG 00:00: 00:00 mg total) Hospit a tablet 00 :00 by mouth l daily. pioglitazon 2021-10- No 15mg QD Take 1 Met hodi e (ACTOS) 010-26 tablet (15 st 15 MG 00:00: 00:00 [...] 00 :00 total) by l mouth nightly. niacin 2021- No 500mg QD Take 1 [facility] (NIASPAN) 07-[address] 500 MG CR 00:00: 00:00 (500 mg Hosp korina tablet 00 :00 total) by l mouth nightly. brimonidine 0 Yes 1[drp] Q.5D Administer [facility] (ALPHAGAN) 9-[address] 0.2 % 00:00: both eyes Hospita ophthalmic 00 2 (two) l solution times a day. brimonidine 2021-0 Yes 1[drp] Q.5D Administer [facility] (ALPHAGAN) 9-[address] 0.2 % 00:00: both eyes Hospita ophthalmic 00 2 (two) l solution times a day. brimonidine 2021-0 Yes INSTILL 1 M ethodi (ALPHAGAN) 9-[address] 0.2 % 00:00: EACH EYE Hospita ophthalmic 00 THREE l solution TIMES DAILY atorvastati Yes 40mg QD Take 1 Meth stewart n (LIPITOR) 6-07 tablet (40 st 40 mg 00:00: mg total) Hospita tablet 00 by mouth l nightly. atorvastati 2021-0 Yes 40mg QD Take 1 Meth stewart n (LIPITOR) - tablet (40 st 40 mg 00:00: mg total) Hospita tablet 00 by mouth l nightly. atorvastati 2021-0 Yes 40mg QD Take 40 mg Methodi n (LIPITOR) -[address] 40 mg 00:00: daily. Hospita tablet 00 l furosemide 2021-0 Yes 40mg QD Take 1 Metho di (LASIX) 40 04-04 tablet (40 st mg tablet 00:00: mg total) Hos ernesto 00 by mouth l daily. furosemide 2021-0 2021- No 40mg QD Take 1 Meth stewart (LASIX) 40 04-04- tablet (40 st mg tablet 00:00: 00:00 mg total) Ho spita 00 :00 by mouth l daily. furosemide 2021-0 2021- No 40mg QD Take 1 Meth stewart (LASIX) 40 04-04 tablet (40 st mg tablet 00:00: 00:00 mg total) Ho spita 00 :00 by mouth l daily. lisinopriL 2021-0 2022- No 5mg Take 1 Meth stewart (PRINIVIL) 04-04 tablet (5 st 5 mg tablet 00:00: 00:00 mg total) Hospita 00 :00 by mouth l as needed. lisinopriL 2021-0 2022- No 5mg Take 1 Meth stewart (PRINIVIL) 04-04 tablet (5 st 5 mg tablet 00:00: 00:00 mg total) Hospita 00 :00 by mouth l as needed. lisinopriL 2021-0 2022- No 5mg Take 1 Meth stewart (PRINIVIL) 04-04 tablet (5 st 5 mg tablet 00:00: 00:00 mg total) Hospita 00 :00 by mouth l as needed. Farxiga 10 2021-0 2- No 10mg QD Take 10 mg [facility]i mg tablet 03-[address] 00:00: 00:00 daily. Hospita 00 :00 l Farxiga 10 2021-0 2022- No 10mg QD Take 10 mg [facility] mg tablet 03-[address] 00:00: 00:00 daily. Hospita 00 :00 l Bluexiga 10 2021-2021- No 10mg QD Take 10 mg [facility] mg tablet 03-[address] 00:00: 00:00 daily. Hospita 00 :00 l clopidogreL 2021-0 2022- No 75mg QD Take 75 mg [facility]i (PLAVIX) 75 4-16 04-[address] mg tablet 00:00: 04:59 daily. Hospi ta 00 :00 l clopidogreL 2021-0 3- No 75mg QD Take 75 mg [facility] (PLAVIX) 75 4-16 04-[address] mg tablet 00:00: 04:59 daily. Hospi ta 00 :00 l aspirin 81 2021-0 3- No 81mg QD Take [address] MG chewable 4-16 04-16 tablet (81 L ukes tablet 00:00: 23:59 mg total) Medic al 00 :00 by mouth Center daily. clopidogreL 2021-2022- No 75mg QD Take [address] (PLAVIX) 75 4-16 04-16 tablet (75 L ukes mg tablet 00:00: 23:59 mg total) Me dical 00 :00 by mouth Center daily. aspirin 81 2021-0 3- No 81mg QD Take [address] MG chewable 4-16 04-16 tablet (81 L ukes tablet 00:00: 23:59 mg total) Medic al 00 :00 by mouth Center daily. clopidogreL 2021-0 3- No 75mg QD Take [address] (PLAVIX) 75 4-16 04-16 tablet (75 L ukes mg tablet 00:00: 23:59 mg total) Me dical 00 :00 by mouth Center daily. aspirin 81 2021-0 3- No 81mg QD Take [address] MG chewable 4-16 04-16 tablet (81 L ukes tablet 00:00: 23:59 mg total) Medic al 00 :00 by mouth Center daily. clopidogreL 2021-0 3- No 75mg QD Take [address] (PLAVIX) 75 4-16 04-16 tablet (75 L ukes mg tablet 00:00: 23:59 mg total) Me dical 00 :00 by mouth Center daily. clopidogreL 2021-0 3- No 75mg QD Take 1 Met hodi (PLAVIX) 75 4-16 02-10 tablet (75 s t mg tablet 00:00: 00:00 mg total) Ho spita 00 :00 by mouth l daily. brimonidine Yes 1[drp] Q.5D [address] -timoloL 4-15 (two) [facility] (COMBIGAN) 15:45: times Medica l 0.2-0.5 % 51 daily. Center ophthalmic solution brimonidine Yes 1[drp] Q.5D [address] -timoloL 4-15 (two) [facility] (COMBIGAN) 15:45: times Medica l 0.2-0.5 % 51 daily. Center ophthalmic solution brimonidine Yes 1[drp] Q.5D 1 drop 2 [...] (six) hours as needed for Pain. ibuprofen 2021-2021- No 200mg Take [address] [...] Center (six) hours as needed for Pain. metFORMIN Yes 1000mg Take [address] [...] (two) times daily with breakfast and dinner. carvediloL Yes 12.5mg Q.5D Take 1 Met hodi (COREG) 4-[address] 12.5 MG 00:00: (12.5 mg Hospit a tablet 00 total) by l mouth 2 (two) times a day with meals. atorvastati 2022- No 40mg QD Take 1 [...] Center (two) times daily before meals. lisinopriL 2021-2022- No 5mg QD Take [address] (PRINIVIL,Z 4-15 04-15 tablet (5 Marilu kes ESTRIL) 5 00:00: 23:59 mg total) Me dical MG tablet 00 :00 by mouth Center daily. atorvastati 2021-2022- No 40mg QD Take [address] n (LIPITOR) 4-15 04-15 tablet (40 L ukes 40 MG 00:00: 23:59 mg total) Medica l tablet 00 :00 by mouth Center nightly. carvediloL 2021-2022- No 12.5mg Q.5D Take 1 CH I [...] mouth 2 Center (two) times daily. glipiZIDE 2021-2022- No 5mg Take 1 [facility] t (GLUCOTROL) 4-15 04-15 tablet (5 Marilu kes 5 MG tablet 00:00: 23:59 mg total) Medical 00 :00 by mouth 2 Center (two) times daily before meals. lisinopriL 2021-2022- No 5mg QD Take [address] (PRINIVIL,Z 4-15 04-15 tablet (5 Marilu kes ESTRIL) 5 00:00: 23:59 mg total) Me dical MG tablet 00 :00 by mouth Center daily. atorvastati 2021-2022- No 40mg QD Take [address] n (LIPITOR) 4-15 04-15 tablet (40 L ukes 40 MG 00:00: 23:59 mg total) Medica l tablet 00 :00 by mouth Center nightly. carvediloL 2022- No 12.5mg Q.5D Take [address] (COREG) 4-15 -15 tablet [facility] 12.5 MG 00:00: 23:59 [...] Q.5D Take 1 Me thodi (COREG) 4-15 -[address] 12.5 MG 00:00: 00:00 (12.5 mg Hospi ta tablet 00 :00 total) by l mouth 2 (two) times a day with meals. carvediloL 2021- No 12.5mg Q.5D Take 1 Me thodi (COREG) 4-15 12-[address] 12.5 MG 00:00: 00:00 (12.5 mg Hospi ta tablet 00 :00 total) by l mouth 2 (two) times a day with meals. Ibuprofen Ibuprofen Yes Marty 1 tablet Common Rodriguez with food Spirit or milk as - [facility] needed [facility] Vital Signs Vital Name Observation Time Observation Value Comments Source HEIGHT 2020-10-12 13:29:00 165.1 cm WEIGHT 2020-10-12 13:29:00 63.504 kg HEIGHT 2022-02-08 05:00:00 167.6 cm WEIGHT 2022-02-08 05:00:00 67.178 kg HEIGHT 2022-02-08 05:00:00 167.6 cm WEIGHT 2022-02-08 05:00:00 67.178 kg HEIGHT 2022-02-08 05:00:00 167.6 cm WEIGHT 2022-02-08 05:00:00 67.178 kg HEIGHT 2020-10-12 13:29:00 165.1 cm WEIGHT 2020-10-12 13:29:00 63.504 kg Body height 2022-12-07 14:11:00 165.1 cm [facility] Body weight 2022-12-07 14:11:00 45.36 kg [facility] BMI 2022-12-07 14:11:00 16.64 kg/m2 [facility] Systolic blood 2022-11-29 21:19:00 110 mm[Hg] Method [facility] pressure Diastolic blood 2022-11-29 21:19:00 76 mm[Hg] [facility] pressure Heart rate 2022-11-29 21:19:00 101 /min [facility] Body temperature 2022-11-29 21:19:00 36.33 Rachell [facility] Oxygen saturation in 2022-11-29 21:19:00 96 /min [facility] Arterial blood by Pulse oximetry Respiratory rate 2022-11-22 15:13:00 16 /min [facility] Systolic blood 2022-10-31 16:08:00 102 mm[Hg] Method [facility] pressure Diastolic blood 2022-10-31 16:08:00 62 mm[Hg] [facility] pressure Heart rate 2022-10-31 16:08:00 89 /min [facility] Body height 2022-10-31 16:08:00 165.1 cm [facility] Body weight 2022-10-31 16:08:00 48.081 kg [facility] BMI 2022-10-31 16:08:00 17.64 kg/m2 [facility] Respiratory rate 2022-10-26 21:28:00 18 /min [facility] Oxygen saturation in 2022-10-26 21:28:00 99 /min [facility] Arterial blood by Pulse oximetry Body temperature 2022-10-26 17:22:06 36.22 Rachell [facility] Systolic blood 2022-09-26 15:49:00 123 mm[Hg] [facility] pressure Diastolic blood 2022-09-26 15:49:00 75 mm[Hg] [facility] pressure Heart rate 2022-09-26 15:49:00 98 /min [facility] Body height 2022-09-26 15:49:00 165.1 cm [facility] Body weight 2022-09-26 15:49:00 70.308 kg [facility] BMI 2022-09-26 15:49:00 25.79 kg/m2 [facility] Systolic blood 2022-02-10 12:00:00 127 mm[Hg] [facility] Diastolic blood 2022-02-10 12:00:00 79 mm[Hg] [facility] Heart rate 2022-02-10 12:00:00 85 /min [facility] Body temperature 2022-02-10 12:00:00 36.39 Rachell [facility] Respiratory rate 2022-02-10 12:00:00 18 /min [facility] Oxygen saturation in 2022-02-10 12:00:00 96 /min [facility] Arterial blood by Medical Ce nter Pulse oximetry Body height 2022-02-08 05:00:00 167.6 cm [facility] Body weight 2022-02-08 05:00:00 67.178 kg [facility] BMI 2022-02-08 05:00:00 23.90 kg/m2 [facility] Procedures Procedure Date / Time Performing Clinician Source Performed CT CHEST W CONTRAST 2022-12-07 15:44:13 Megan Guadarrama [facility] ABDOMEN W CONTRAST PELVIS W CONTRAST TTE COMPLETE, WO CONTRAST, 2022-12-04 21:22:00 Jesus Reina [facility] W DOPPLER ([id number]) CBC WITH PLATELET AND 2022-11-29 22:27:00 Megan Guadarrama [facility] DIFFERENTIAL COMPREHENSIVE METABOLIC 2022-11-29 22:27:00 Megan Guadarrama [facility] PANEL CARCINOEMBRYONIC ANTIGEN 2022-11-29 22:27:00 Harjit Guadarramaitha M [facility] (CEA) CANCER ANTIGEN 19-9 2022-11-29 22:27:00 [facility] PARTIAL THROMBOPLASTIN 2022-11-29 22:27:00 [facility] TIME (PTT) PROTHROMBIN TIME WITH INR 2022-11-29 22:27:00 [facility] ESTIMATED GFR 2022-11-29 22:27:00 Robin Reddyist Ho [facility]ital POC GLUCOSE 2022-10-26 18:22:00 Kojo Tucker [facility] POC GLUCOSE 2022-10-26 13:40:00 Kojo Tucker [facility] POC GLUCOSE 2022-10-26 02:58:00 Kojo Tucker [facility] POC GLUCOSE 2022-10-25 23:35:00 Kojo Tucker [facility] POC GLUCOSE 2022-10-25 18:30:00 Kojo Tucker [facility] POC GLUCOSE 2022-10-25 14:18:00 Kojo Tucker [facility] BASIC METABOLIC PANEL 2022-10-25 10:16:00 [facility] MAGNESIUM LEVEL 2022-10-25 10:16:00 [facility] PHOSPHORUS LEVEL 2022-10-25 10:16:00 [facility] CBC WITH PLATELET AND 2022-10-25 10:16:00 Kojo Tucker [facility] DIFFERENTIAL ESTIMATED GFR 2022-10-25 10:16:00 [facility] SMEAR REVIEW 2022-10-25 10:16:00 [facility] 2022-10-25 03:41:00 Kojo Tucker [facility] POC GLUCOSE 2022-10-25 00:24:00 [facility] AND 2022-10-24 19:02:00 [facility] DIFFERENTIAL SMEAR REVIEW 2022-10-24 19:02:00 [facility] POC GLUCOSE 2022-10-24 17:50:00 Kojo Tucker [facility] POC GLUCOSE 2022-10-24 14:02:00 [facility] HEMOGLOBIN & HEMATOCRIT 2022-10-24 12:04:00 [facility] BASIC METABOLIC PANEL 2022-10-24 12:03:00 [facility] MAGNESIUM LEVEL 2022-10-24 12:03:00 [facility] PHOSPHORUS LEVEL 2022-10-24 12:03:00 [facility] C-PEPTIDE 2022-10-24 12:03:00 [facility] ESTIMATED GFR 2022-10-24 12:03:00 [facility] POC GLUCOSE 2022-10-24 03:08:00 [facility] POC GLUCOSE 2022-10-23 23:46:00 [facility] POC GLUCOSE 2022-10-23 18:07:00 [facility] XR CHEST 1 VW PORTABLE 2022-10-23 15:35:32 Demetra Ngo [facility] POC GLUCOSE 2022-10-23 13:26:00 [facility] O2 SATURATION, VENOUS 2022-10-23 11:13:00 Demetra Ngo [facility] BASIC METABOLIC PANEL 2022-10-23 11:13:00 [facility] MAGNESIUM LEVEL 2022-10-23 11:13:00 [facility] PHOSPHORUS LEVEL 2022-10-23 11:13:00 [facility] HEMOGLOBIN & HEMATOCRIT 2022-10-23 11:13:00 [facility] ESTIMATED GFR 2022-10-23 11:13:00 [facility] POC GLUCOSE 2022-10-22 23:20:00 [facility] POC GLUCOSE 2022-10-22 17:18:00 [facility] POC GLUCOSE 2022-10-22 14:13:00 [facility] XR CHEST 1 VW PORTABLE 2022-10-22 13:32:15 Demetra Ngo [facility] O2 SATURATION, VENOUS 2022-10-22 11:21:00 Demetra Ngo [facility] Desai MAGNESIUM LEVEL 2022-10-22 11:21:00 [facility] PHOSPHORUS LEVEL 2022-10-22 11:21:00 [facility] BASIC METABOLIC PANEL 2022-10-22 11:21:00 [facility] NATRIURETIC PEPTIDE 2022-10-22 11:21:00 Keny [facility] LACTIC ACID LEVEL 2022-10-22 11:21:00 [facility] ESTIMATED GFR 2022-10-22 11:21:00 Kaushal Bustillo spital Vincent POC GLUCOSE 2022-10-21 23:15:00 [facility] POC GLUCOSE 2022-10-21 17:50:00 [facility] XR CHEST 1 VW PORTABLE 2022-10-21 14:21:00 Demetra Ngo [facility] Desai POC GLUCOSE 2022-10-21 14:11:00 [facility] O2 SATURATION, VENOUS 2022-10-21 11:13:00 Demetra Ngo [facility] MAGNESIUM LEVEL 2022-10-21 11:13:00 [facility] PHOSPHORUS LEVEL 2022-10-21 11:13:00 [facility] DIGOXIN LEVEL 2022-10-21 11:13:00 Kaushal Bustillo spital Vincrohini CBC WITH PLATELET AND 2022-10-21 11:13:00 Kaushal Bustillo [facility] DIFFERENTIAL Vincent BASIC METABOLIC PANEL 2022-10-21 11:13:00 Keny, Kaushal [facility] B NATRIURETIC PEPTIDE 2022-10-21 11:13:00 Keny [facility] LACTIC ACID LEVEL 2022-10-21 11:13:00 Keny [facility] ESTIMATED GFR 2022-10-21 11:13:00 [facility] 2022-10-21 11:13:00 Kaushal Bustillo [facility] POC GLUCOSE 2022-10-21 03:05:00 [facility] POC GLUCOSE 2022-10-21 00:07:00 [facility] POC GLUCOSE 2022-10-20 18:41:00 [facility] XR CHEST 1 VW PORTABLE 2022-10-20 16:20:00 Demetra Ngo [facility] POC GLUCOSE 2022-10-20 15:45:00 [facility] POC GLUCOSE 2022-10-20 14:57:00 [facility] O2 SATURATION, VENOUS 2022-10-20 11:41:00 Demetra Ngo [facility] MAGNESIUM LEVEL 2022-10-20 11:41:00 [facility] PHOSPHORUS LEVEL 2022-10-20 11:41:00 [facility] C-PEPTIDE 2022-10-20 11:41:00 María Mehta [facility] CBC WITH PLATELET AND 2022-10-20 11:41:00 [facility]ENTIAL Vinc[facility]ini BASIC METABOLIC PANEL 2022-10-20 11:41:00 Keny [facility] HEPATIC FUNCTION PANEL 2022-10-20 11:41:00 Kaushal Bustillo [facility] B NATRIURETIC PEPTIDE 2022-10-20 11:41:00 Kaushal Bustillo [facility] LACTIC ACID LEVEL 2022-10-20 11:41:00 [facility] FERRITIN LEVEL 2022-10-20 11:41:00 [facility] RETICULOCYTE COUNT 2022-10-20 11:41:00 [facility] TOTAL IRON BINDING 2022-10-20 11:41:00 [facility] CAPACITY ESTIMATED GFR 2022-10-20 11:41:00 Kaushal Bustillo spierickson Monet SMEAR REVIEW 2022-10-20 11:41:00 Kaushal Bustillo [facility] TRANSFUSE RED BLOOD CELLS 2022-10-20 04:26:00 [facility] POC GLUCOSE 2022-10-20 03:13:00 [facility] TTE LIMITED W CONTRAST, W 2022-10-20 00:19:00 [facility] DOPPLER ([id number]) POC GLUCOSE 2022-10-20 00:11:00 [facility] TYPE AND SCREEN 2022-10-19 19:36:00 [facility] PREPARE RBC 2022-10-19 19:36:00 [facility] POC GLUCOSE 2022-10-19 18:03:00 [facility] XR CHEST 1 VW PORTABLE 2022-10-19 15:54:25 Kaushal Bustillo [facility] Vincent POC GLUCOSE 2022-10-19 14:40:00 [facility] MAGNESIUM LEVEL 2022-10-19 13:54:00 Demetra Ngo [facility] O2 SATURATION, VENOUS 2022-10-19 13:54:00 Demetra Ngo [facility] PHOSPHORUS LEVEL 2022-10-19 13:54:00 Demetra Ngo [facility] B NATRIURETIC PEPTIDE 2022-10-19 13:54:00 Kaushal Bustillo [facility] Vincrohini BILIRUBIN DIRECT 2022-10-19 13:54:00 Kaushal Bustillo [facility]spital [place] ESTIMATED GFR 2022-10-19 13:54:00 [facility] COMPREHENSIVE METABOLIC 2022-10-19 13:54:00 [facility] PANEL CBC WITH PLATELET AND 2022-10-19 13:54:00 [facility] DIFFERENTIAL SMEAR REVIEW 2022-10-19 13:54:00 [facility] POC GLUCOSE 2022-10-19 02:56:00 [facility] POC GLUCOSE 2022-10-18 23:48:00 [facility] POC GLUCOSE 2022-10-18 17:52:00 [facility] XR CHEST 1 VW PORTABLE 2022-10-18 15:20:00 Demetra Ngo [facility] POC GLUCOSE 2022-10-18 13:43:00 [facility] CBC WITH PLATELET AND 2022-10-18 12:18:00 Demetra Ngo [facility] DIFFERENTIAL Desai COMPREHENSIVE METABOLIC 2022-10-18 12:18:00 Wilbur Ngosandra [facility] PANEL Desai MAGNESIUM LEVEL 2022-10-18 12:18:00 Demetra Ngo [facility] O2 SATURATION, VENOUS 2022-10-18 12:18:00 [facility] 2022-10-18 12:18:00 Demetra Ngo [facility] PROTHROMBIN TIME WITH INR 2022-10-18 12:18:00 Brandyn Ngo [facility] ESTIMATED GFR 2022-10-18 12:18:00 [facility] POC GLUCOSE 2022-10-18 03:12:00 [facility] POC GLUCOSE 2022-10-18 00:05:00 [facility] BASIC METABOLIC PANEL 2022-10-17 19:21:00 Joni Padilla [facility] ESTIMATED GFR 2022-10-17 19:21:00 [facility] POC GLUCOSE 2022-10-17 18:01:00 [facility] POC GLUCOSE 2022-10-17 13:50:00 [facility] XR CHEST 1 VW PORTABLE 2022-10-17 12:42:22 Demetra Ngo [facility] CLOSTRIDIUM DIFFICILE 2022-10-17 11:12:00 [facility] TOXIN GENE ([facility] BASIC METABOLIC PANEL 2022-10-17 11:01:00 [facility] CBC WITH PLATELET AND 2022-10-17 11:01:00 [facility] DIFFERENTIAL [facility] MAGNESIUM LEVEL 2022-10-17 11:01:00 [facility] PHOSPHORUS LEVEL 2022-10-17 11:01:00 [facility] IONIZED CALCIUM 2022-10-17 11:01:00 [facility] PARTIAL THROMBOPLASTIN 2022-10-17 11:01:00 [facility] TIME (PTT) [facility] ESTIMATED GFR 2022-10-17 11:01:00 Rocky Sinha H ospital SMEAR REVIEW 2022-10-17 11:01:00 Rocky Sinha H ospital POC GLUCOSE 2022-10-17 10:26:00 [facility] CBC WITH PLATELET AND 2022-10-17 09:16:00 Demetra Ngo [facility] DIFFERENTIAL [facility] COMPREHENSIVE METABOLIC 2022-10-17 09:16:00 Demetra Ngo [facility] PANEL [facility] MAGNESIUM LEVEL 2022-10-17 09:16:00 Demetra Ngo [facility] O2 SATURATION, VENOUS 2022-10-17 09:16:00 Demetra Ngo [facility] PHOSPHORUS LEVEL 2022-10-17 09:16:00 Demetra Ngo [facility] PROTHROMBIN TIME WITH INR 2022-10-17 09:16:00 Brandyn Ngo [facility] ESTIMATED GFR 2022-10-17 09:16:00 [facility] POC GLUCOSE 2022-10-17 07:09:00 [facility] PARTIAL THROMBOPLASTIN 2022-10-17 04:36:00 [facility] TIME (PTT) [facility] POTASSIUM LEVEL 2022-10-17 04:36:00 [facility] MAGNESIUM LEVEL 2022-10-17 04:36:00 [facility] PHOSPHORUS LEVEL 2022-10-17 04:36:00 [facility] IONIZED CALCIUM 2022-10-17 04:36:00 [facility] POC GLUCOSE 2022-10-17 02:36:00 [facility] POC GLUCOSE 2022-10-16 22:41:00 [facility] BASIC METABOLIC PANEL 2022-10-16 22:31:00 [facility]NESIUM [facility] 2022-10-16 22:31:00 [facility] PHOSPHORUS LEVEL 2022-10-16 22:31:00 [facility] CALCIUM 2022-10-16 22:31:00 [facility] ESTIMATED GFR 2022-10-16 22:31:00 [facility] O2 SATURATION, VENOUS 2022-10-16 21:41:00 Demetra Ngo [facility] POC GLUCOSE 2022-10-16 19:43:00 [facility] OR FL < 1 HOUR 2022-10-16 18:45:00 Piter Soler [facility] XR ABDOMEN 1 VW PORTABLE 2022-10-16 16:50:00 [facility] XR CHEST 1 VW PORTABLE 2022-10-16 16:45:00 [facility] POC GLUCOSE 2022-10-16 14:59:00 [facility] XR CHEST 1 VW PORTABLE 2022-10-16 11:08:00 [facility] PARTIAL THROMBOPLASTIN 2022-10-16 10:44:00 Rocky Sinha [facility] TIME (PTT) POC GLUCOSE 2022-10-16 10:20:00 [facility] PARTIAL THROMBOPLASTIN 2022-10-16 07:29:00 Rocky schwartz [facility] TIME (PTT) POC GLUCOSE 2022-10-16 06:29:00 [facility] CBC WITH PLATELET AND 2022-10-16 06:07:00 [facility] DIFFERENTIAL O2 SATURATION, VENOUS 2022-10-16 06:07:00 [facility] LIDOCAINE LEVEL 2022-10-16 06:07:00 Manuel Kirby spital PARTIAL THROMBOPLASTIN 2022-10-16 06:07:00 Jesus Amos [facility] TIME (PTT) IONIZED CALCIUM 2022-10-16 06:07:00 Rocky Sinha ospital COMPREHENSIVE METABOLIC 2022-10-16 06:07:00 Rocky Sinha [facility] PANEL MAGNESIUM LEVEL 2022-10-16 06:07:00 Rocky Sinha ospital ESTIMATED GFR 2022-10-16 06:07:00 Rocky Sinha ospital PHOSPHORUS LEVEL 2022-10-16 06:07:00 Rocky schwartz [facility] SMEAR REVIEW 2022-10-16 06:07:00 [facility] ESTIMATED GFR 2022-10-16 06:05:00 Eric Delgadillo [facility] POC GLUCOSE 2022-10-16 02:40:00 [facility] PARTIAL THROMBOPLASTIN 2022-10-15 22:51:00 [facility] TIME (PTT) BASIC METABOLIC PANEL 2022-10-15 22:51:00 [facility] MAGNESIUM LEVEL 2022-10-15 22:51:00 [facility] ospital PHOSPHORUS LEVEL 2022-10-15 22:51:00 [facility] IONIZED CALCIUM 2022-10-15 22:51:00 [place], [facility] ospital ESTIMATED GFR 2022-10-15 22:51:00 [facility] ospital POC GLUCOSE 2022-10-15 22:51:00 [facility] POC GLUCOSE 2022-10-15 18:48:00 [facility] O2 SATURATION, VENOUS 2022-10-15 17:57:00 [facility] POC GLUCOSE 2022-10-15 14:57:00 [facility] PARTIAL THROMBOPLASTIN 2022-10-15 14:54:00 Ruthy Luna [facility] TIME (PTT) XR CHEST 1 VW PORTABLE 2022-10-15 12:48:28 [facility] POC GLUCOSE 2022-10-15 11:31:00 [facility] ARTERIAL BLOOD GAS 2022-10-15 09:18:00 [facility] CBC WITH PLATELET AND 2022-10-15 08:16:00 [facility] DIFFERENTIAL LACTIC ACID LEVEL 2022-10-15 08:16:00 [facility] LDH 2022-10-15 08:16:00 [facility] O2 SATURATION, VENOUS 2022-10-15 08:16:00 [facility] MAGNESIUM LEVEL 2022-10-15 08:16:00 [facility] PROTHROMBIN TIME WITH INR 2022-10-15 08:16:00 [facility] LIDOCAINE LEVEL 2022-10-15 08:16:00 [facility] COMPREHENSIVE METABOLIC 2022-10-15 08:16:00 [facility] PANEL ESTIMATED GFR 2022-10-15 08:16:00 [facility] PHOSPHORUS LEVEL 2022-10-15 08:16:00 [facility] PARTIAL THROMBOPLASTIN 2022-10-15 08:16:00 KofiManuel [facility] TIME (PTT) SMEAR REVIEW 2022-10-15 08:16:00 [facility] POC GLUCOSE 2022-10-15 06:16:00 [facility] COMPREHENSIVE METABOLIC 2022-10-15 04:17:00 [facility] PANEL ESTIMATED GFR 2022-10-15 04:17:00 [facility] POC GLUCOSE 2022-10-15 03:02:00 [facility] LACTIC ACID LEVEL 2022-10-14 23:31:00 [facility] O2 SATURATION, VENOUS 2022-10-14 23:31:00 [facility] POC GLUCOSE 2022-10-14 23:14:00 [facility] PARTIAL THROMBOPLASTIN 2022-10-14 21:20:00 [facility] TIME (PTT) POC GLUCOSE 2022-10-14 19:16:00 [facility] CARCINOEMBRYONIC ANTIGEN 2022-10-14 18:57:00 DaveMegan oneal [facility] ([facility]) ALPHA FETOPROTEIN 2022-10-14 18:57:00 [facility] IONIZED CALCIUM 2022-10-14 18:57:00 [facility] MAGNESIUM LEVEL 2022-10-14 18:57:00 [facility] ospital PHOSPHORUS LEVEL 2022-10-14 18:57:00 [facility] CANCER ANTIGEN 19-9 2022-10-14 18:57:00 [facility] POTASSIUM LEVEL 2022-10-14 18:57:00 [facility] ospital PARTIAL THROMBOPLASTIN 2022-10-14 15:25:00 Rocky Sinha [facility] TIME (PTT) POC GLUCOSE 2022-10-14 13:55:00 [facility] XR CHEST 1 VW PORTABLE 2022-10-14 11:51:00 [facility] POC GLUCOSE 2022-10-14 11:14:00 [facility] COMPREHENSIVE METABOLIC 2022-10-14 07:42:00 [facility] PANEL LACTIC ACID LEVEL 2022-10-14 07:42:00 [facility] LDH 2022-10-14 07:42:00 [facility] PHOSPHORUS LEVEL 2022-10-14 07:42:00 [facility] LIDOCAINE LEVEL 2022-10-14 07:42:[address] [facility] spital MAGNESIUM LEVEL 2022-10-14 07:42:00 Rocky Sinha [facility] ospital ESTIMATED GFR 2022-10-14 07:42:00 [facility] CBC WITH PLATELET AND 2022-10-14 07:41:00 [facility] DIFFERENTIAL PARTIAL THROMBOPLASTIN 2022-10-14 07:41:00 [facility] TIME (PTT) IONIZED CALCIUM 2022-10-14 07:41:00 [facility] PROTHROMBIN TIME WITH INR 2022-10-14 07:41:00 [facility] ARTERIAL BLOOD GAS 2022-10-14 07:40:00 [facility] O2 SATURATION, VENOUS 2022-10-14 07:27:00 [facility] POC GLUCOSE 2022-10-14 06:34:00 [facility] POC GLUCOSE 2022-10-14 02:37:00 [facility] POC GLUCOSE 2022-10-13 23:20:00 [facility] US THORACENTESIS WITH 2022-10-13 22:08:57 Miller Reina [facility] IMAGING XR CHEST 1 VW PORTABLE 2022-10-13 21:57:29 Donte Cam [facility] BASIC METABOLIC PANEL 2022-10-13 20:26:00 Rocky schwartz [facility] MAGNESIUM LEVEL 2022-10-13 20:26:00 [facility] ospital PHOSPHORUS LEVEL 2022-10-13 20:26:00 [facility] IONIZED CALCIUM 2022-10-13 20:26:00 Rocky schwartz [facility] ospital ESTIMATED GFR 2022-10-13 20:26:00 [facility] ospital SURGICAL PATHOLOGY REQUEST 2022-10-13 18:13:00 [facility] POC GLUCOSE 2022-10-13 17:32:00 [facility] COLONOSCOPY 2022-10-13 17:01:00 [facility] POC GLUCOSE 2022-10-13 13:28:00 [facility] POC GLUCOSE 2022-10-13 12:20:00 [facility] XR CHEST 1 VW PORTABLE 2022-10-13 12:08:14 [facility] X[facility] ABDOMEN 1 VW PORTABLE 2022-10-13 12:08:00 Leticia Pastor [facility] PARTIAL THROMBOPLASTIN 2022-10-13 10:55:00 Ruthy Luna [facility] TIME (PTT) POC GLUCOSE 2022-10-13 10:51:00 [facility] POC GLUCOSE 2022-10-13 07:28:00 [facility] LIDOCAINE LEVEL 2022-10-13 07:12:00 [facility] ARTERIAL BLOOD GAS 2022-10-13 07:12:00 [facility] CBC WITH PLATELET AND 2022-10-13 07:12:00 [facility] DIFFERENTIAL COMPREHENSIVE METABOLIC 2022-10-13 07:12:00 [facility] PANEL LACTIC ACID LEVEL 2022-10-13 07:12:00 [facility] LDH 2022-10-13 07:12:00 [facility] O2 SATURATION, VENOUS 2022-10-13 07:12:00 [facility] PHOSPHORUS LEVEL 2022-10-13 07:12:00 [facility] MAGNESIUM LEVEL 2022-10-13 07:12:00 [facility] ESTIMATED GFR 2022-10-13 07:12:00 [facility] IONIZED CALCIUM, ARTERIAL 2022-10-13 07:12:00 [facility] POC GLUCOSE 2022-10-13 03:24:00 [facility] PARTIAL THROMBOPLASTIN 2022-10-13 01:39:00 [facility] TIME (PTT) URINE CULTURE 2022-10-13 00:23:00 [facility] POC GLUCOSE 2022-10-12 23:38:00 [facility] XR CHEST 1 VW PORTABLE 2022-10-12 22:56:39 [facility] URINALYSIS SCREEN AND 2022-10-12 22:17:00 [facility], WITH REFLEX TO CULTURE CT CHEST WO CONTRAST 2022-10-12 19:45:44 [facility] HEAD WO CONTRAST 2022-10-12 19:45:32 [facility] POC GLUCOSE 2022-10-12 18:47:00 [facility] ESTIMATED GFR 2022-10-12 18:19:00 Rocky Sinha ospital PARTIAL THROMBOPLASTIN 2022-10-12 18:17:00 Miller Reina [facility] TIME (PTT) PHOSPHORUS LEVEL 2022-10-12 18:17:00 [facility] IONIZED CALCIUM 2022-10-12 18:17:00 [facility] BASIC METABOLIC PANEL 2022-10-12 18:17:00 Rocky schwartz [facility] MAGNESIUM LEVEL 2022-10-12 18:17:00 [facility] ESTIMATED GFR 2022-10-12 18:17:00 Rocky Sinha ospital POC GLUCOSE 2022-10-12 14:53:00 Jesus Amos Ho spital XR CHEST 1 VW PORTABLE 2022-10-12 12:36:50 [facility] POC GLUCOSE 2022-10-12 11:00:00 Jesus Amos Ho spital LIDOCAINE LEVEL 2022-10-12 10:18:00 Manuel Kirby Ho spital PARTIAL THROMBOPLASTIN 2022-10-12 10:18:00 Jesus Amos [facility] TIME (PTT) O2 SATURATION, VENOUS 2022-10-12 07:24:00 [facility] ARTERIAL BLOOD GAS 2022-10-12 07:23:00 [facility] COMPREHENSIVE METABOLIC 2022-10-12 07:23:00 [facility] PANEL CBC WITH PLATELET AND 2022-10-12 07:23:00 [facility] DIFFERENTIAL MAGNESIUM LEVEL 2022-10-12 07:23:00 [facility] PHOSPHORUS LEVEL 2022-10-12 07:23:00 [facility] ESTIMATED GFR 2022-10-12 07:23:00 [facility] LACTIC ACID LEVEL 2022-10-12 07:23:00 [facility] LDH 2022-10-12 07:23:00 Rocky schwartz ospital POC GLUCOSE 2022-10-12 06:49:00 Jesus Amos spital O2 SATURATION, VENOUS 2022-10-12 03:13:00 Karlos [facility] POC GLUCOSE 2022-10-12 02:55:00 Jesus Amos spital XR CHEST 1 VW PORTABLE 2022-10-12 02:06:11 [facility] POTASSIUM LEVEL 2022-10-12 01:41:00 [facility] Ho spital PARTIAL THROMBOPLASTIN 2022-10-12 01:41:00 Dandre [facility] TIME (PTT) CV INTRA AORTIC BALLOON 2022-10-12 00:55:54 Jesus Amos [facility] PUMP INSERTION BASIC METABOLIC PANEL 2022-10-11 23:07:00 efrenShoals HospitalRocky [facility] MAGNESIUM LEVEL 2022-10-11 23:07:00 [facility] PHOSPHORUS LEVEL 2022-10-11 23:07:00 [facility] IONIZED CALCIUM 2022-10-11 23:07:00 [facility] Hospital[facility] Braden [facility] ospital ESTIMATED GFR 2022-10-11 23:07:00 [facility] ospital XR CHEST 1 VW PORTABLE 2022-10-11 23:00:38 Miller Reina [facility] POC GLUCOSE 2022-10-11 22:03:00 Jesus Amos spital ECG 12-LEAD 2022-10-11 20:49:12 Hector Low [facility] LIDOCAINE LEVEL 2022-10-11 20:03:00 Manuel Kirby spital POC GLUCOSE 2022-10-11 17:52:00 Jesus Amos spital CV SELECTIVE CORONARY 2022-10-11 16:54:39 Jesus Amos [facility] ANGIOGRAPHY TRANSFUSE RED BLOOD CELLS 2022-10-11 16:01:00 Nehemias [facility] Brianyearthurumar XR CHEST 1 VW PORTABLE 2022-10-11 14:50:00 [facility] ABO AND RH CONFIRMATION BY 2022-10-11 14:06:00 Jesus Amos [facility] PROTOCOL POC GLUCOSE 2022-10-11 13:57:00 Jesus Amos [facility] MRSA PCR 2022-10-11 11:07:00 Leticia Pastor [facility] COMPREHENSIVE METABOLIC 2022-10-11 11:07:00 [facility] PANEL MAGNESIUM LEVEL 2022-10-11 11:07:00 [facility] PHOSPHORUS LEVEL 2022-10-11 11:07:00 [facility] ESTIMATED GFR 2022-10-11 11:07:00 [facility] PROCALCITONIN 2022-10-11 11:07:00 Leticia Pastor [facility] IONIZED CALCIUM 2022-10-11 11:07:00 Tamra Lentz [facility] [facility] POC GLUCOSE 2022-10-11 11:06:00 [facility] URINE CULTURE 2022-10-11 09:04:00 Parmjit Armstrong [facility] O2 SATURATION, VENOUS 2022-10-11 07:50:00 [facility] COVID-19 QUALITATIVE 2022-10-11 07:44:00 [facility] RT-PCR LIDOCAINE LEVEL 2022-10-11 07:44:00 Manuel Kirby spital ARTERIAL BLOOD GAS 2022-10-11 07:44:00 [facility] CBC WITH PLATELET AND 2022-10-11 07:44:00 [facility] DIFFERENTIAL PROTHROMBIN TIME WITH INR 2022-10-11 07:44:00 [facility] PARTIAL THROMBOPLASTIN 2022-10-11 07:44:00 Sammour[facility] TIME (PTT) LACTIC ACID LEVEL 2022-10-11 07:44:00 [facility] SMEAR REVIEW 2022-10-11 07:44:00 Jesus Amos [facility] POC GLUCOSE 2022-10-11 07:36:00 Jesus Amos [facility] URINALYSIS SCREEN AND 2022-10-11 04:30:00 [facility] MICROSCOPY, WITH REFLEX TO CULTURE ARTERIAL BLOOD GAS 2022-10-11 02:50:00 [facility] POT[facility]SI[facility] LEVEL 2022-10-11 02:50:00 [facility] MAGNESIUM LEVEL 2022-10-11 02:50:00 [facility] IONIZED CALCIUM 2022-10-11 02:50:00 [facility] PHOSPHORUS LEVEL 2022-10-11 02:50:00 [facility] POC GLUCOSE 2022-10-11 02:49:00 Jesus Amos spital PARTIAL THROMBOPLASTIN 2022-10-11 00:39:00 [facility] TIME (PTT) O2 SATURATION, VENOUS 2022-10-11 00:39:00 [facility] MT ARTL CATHJ/CANNULJ 2022-10-11 00:08:23 Miller Reina [facility] MNTR/TRANSFUSION SPX PRQ POC GLUCOSE 2022-10-10 23:39:00 Jesus Amos [facility] XR CHEST 1 VW PORTABLE 2022-10-10 23:00:56 [facility] XR ABDOMEN 1 VW PORTABLE 2022-10-10 20:09:36 Rocky Sinha [facility] SPUTUM CULTURE 2022-10-10 19:45:00 Rocky Sinha ospital GRAM STAIN 2022-10-10 19:45:00 Rocky Sinha H ospital US CHEST 2022-10-10 19:01[facility]00 [facility] 2022-10-10 18:31:00 [facility] POC GLUCOSE 2022-10-10 18:28:00 Jesus Amos spital TROPONIN T 2022-10-10 18:15:00 [facility] LACTIC ACID LEVEL 2022-10-10 18:15:00 [facility] HEPATIC FUNCTION PANEL 2022-10-10 18:15:00 [facility] IONIZED CALCIUM 2022-10-10 18:15:00 Rocky Sinha [facility] ospital MAGNESIUM LEVEL 2022-10-10 18:15:00 Rocky schwartz [facility] ospital PHOSPHORUS LEVEL 2022-10-10 18:15:00 [facility] POTASSIUM LEVEL 2022-10-10 18:15:00 Rocky Sinha [facility] ospital XR TUBE PLACEMENT CHEST 2022-10-10 17:47:31 Rocky Sinha [facility] ABD 1 VW PORTABLE US DUPLEX VENOUS LOWER 2022-10-10 17:39:00 [facility] EXTREMITY BILATERAL keerthi TTE COMPLETE, WO CONTRAST, 2022-10-10 17:00:00 [facility] W DOPPLER ([id number]) [place] BLOOD CULTURE, AEROBIC & 2022-10-10 16:13:00 Rocky Sinha [facility] ANAEROBIC CBC WITH PLATELET AND 2022-10-10 15:51:00 Manuel Kirby [facility] DIFFERENTIAL SMEAR REVIEW 2022-10-10 15:51:00 Manuel Kirby spital BLOOD CULTURE, AEROBIC & 2022-10-10 15:37:00 [facility] TYPE AND SCREEN 2022-10-10 14:53:00 Brian Silva [facility] ARTERIAL BLOOD GAS 2022-10-10 14:53:00 [facility] RBC 2022-10-10 14:53:00 [facility] BASIC METABOLIC PANEL 2022-10-10 14:44:00 [facility] MAGNESI[facility] LEVEL 2022-10-10 14:44:00 [facility] PHOSPHORUS LEVEL 2022-10-10 14:44:00 [facility] TROPONIN T 2022-10-10 14:44:00 [facility] ESTIMATED GFR 2022-10-10 14:44:00 [facility] B NATRIURETIC PEPTIDE 2022-10-10 14:44:00 [facility] LACTIC ACID LEVEL 2022-10-10 14:44:00 [facility] LIPID PANEL 2022-10-10 14:44:00 [facility] IONIZED CALCIUM 2022-10-10 14:44:00 [facility] O2 SATURATION, VENOUS 2022-10-10 14:44:00 [facility]ST 1 VW PORTABLE 2022-10-10 14:25:00 [facility] POC GLUCOSE 2022-10-10 14:10:00 Jesus Amos spital MT AN ELECTIVE 2022-10-10 13:53:00 Ac Phillips spital [employer] MAGNESIUM LEVEL 2022-10-10 13:36:00 Marlo Conde [facility] BASIC METABOLIC PANEL 2022-10-10 13:36:00 Jesus Amos [facility] CBC WITH PLATELET AND 2022-10-10 13:36:00 [facility] DIFFERENTIAL PROTHROMBIN TIME WITH INR 2022-10-10 13:36:00 [facility] PARTIAL THROMBOPLASTIN 2022-10-10 13:36:00 [facility] TIME (PTT) ESTIMATED GFR 2022-10-10 13:36:00 Jesus Amos spital SMEAR REVIEW 2022-10-10 13:36:00 James Berg [facility] POC GLUCOSE 2022-10-10 13:25:00 Jesus Amos spital BASIC METABOLIC PANEL 2022-10-10 06:38:00 [facility] CBC WITH PLATELET AND 2022-10-10 06:38:00 Jesus Amos [facility] DIFFERENTIAL ESTIMATED GFR 2022-10-10 06:38:00 [facility] SMEAR REVIEW 2022-10-10 06:38:00 Jesus Amos spital MAGNESIUM LEVEL 2022-10-10 06:37:00 [facility] POTASSIUM LEVEL 2022-10-10 06:37:00 [facility] ECG 12-LEAD 2022-10-10 03:22:55 Jesus Amos spital POC GLUCOSE 2022-10-10 03:17:00 Jesus Amos spital OCCULT BLOOD, STOOL 2022-10-10 01:45:00 Jesus Amos [facility] US GALLBLADDER 2022-10-10 00:50:00 Ruthy Luna [facility] POC GLUCOSE 2022-10-09 22:17:00 Jesus Amos spital POC GLUCOSE 2022-10-09 17:05:00 Jesus Amos spital CV MRI FUNCTION VIABILITY 2022-10-09 16:42:38 [facility] Roxana Hawkins [facility] CHF EVALUATION [facility] BASIC METABOLIC PANEL 2022-10-09 10:00:00 [facility] CBC WITH PLATELET AND 2022-10-09 10:00:00 Jesus Amos [facility] DIFFERENTIAL MAGNESIUM LEVEL 2022-10-09 10:00:00 Jesus Amos spital ESTIMATED GFR 2022-10-09 10:00:00 [facility] SMEAR REVIEW 2022-10-09 10:00:00 Jesus Amos spital POC GLUCOSE 2022-10-09 02:57:00 Jesus Amos spital POC GLUCOSE 2022-10-08 23:49:00 Jesus Amos spital POC GLUCOSE 2022-10-08 22:35:00 Jesus Amos spital BASIC METABOLIC PANEL 2022-10-08 20:08:00 [facility] MAGNESIUM LEVEL 2022-10-08 20:08:00 Antonietta [place] [facility]ital Lyn ESTIMATED GFR 2022-10-08 20:08:00 Jesus Amos spital POC GLUCOSE 2022-10-08 18:43:00 Jesus Amos spital POC GLUCOSE 2022-10-08 18:03:00 Jesus Amos spital POC GLUCOSE 2022-10-08 14:32:00 Jesus Amos spital POC GLUCOSE 2022-10-08 13:14:00 Jesus Amos spital TESTOSTERONE LEVEL, FREE 2022-10-08 11:31:00 Jesus Amos [facility] AND TOTAL, MALE ESTRADIOL LEVEL 2022-10-08 11:31:00 Jesus Amos spital CBC WITH PLATELET AND 2022-10-08 11:31:00 Jesus Amos [facility] DIFFERENTIAL BASIC METABOLIC PANEL 2022-10-08 11:31:00 Jesus Amos [facility] MAGNESIUM LEVEL 2022-10-08 11:31:00 Jesus Amos spital ESTIMATED GFR 2022-10-08 11:31:00 Jesus Amos spital SMEAR REVIEW 2022-10-08 11:31:00 Jesus Amos spital ESTIMATED GFR 2022-10-08 09:26:00 Marlo Conde [facility] POC GLUCOSE 2022-10-08 03:50:00 Jesus Amos spital TTE COMPLETE, W CONTRAST, 2022-10-07 23:32:07 Paresh [facility] W DOPPLER ([id number]) POC GLUCOSE 2022-10-07 23:16:00 Jesus Amos Ho spital BASIC METABOLIC PANEL 2022-10-07 22:28:00 Antonietta Montana [facility] Lyn MAGNESIUM LEVEL 2022-10-07 22:28:00 Antonietta Montana Ho spital Lyn ESTIMATED GFR 2022-10-07 22:28:[address] ABDOMEN PELVIS W 2022-10-07 21:34:08 Jim Posada [facility] CONTRAST POC GLUCOSE 2022-10-07 17:33:00 Jesus Amos Ho spital POC GLUCOSE 2022-10-07 13:31:00 Jesus mAos spital CBC WITH PLATELET AND 2022-10-07 08:53:00 Jesus Amos [facility] DIFFERENTIAL BASIC METABOLIC PANEL 2022-10-07 08:53:00 Jesus Amos [facility] MAGNESIUM LEVEL 2022-10-07 08:53:00 Jesus Amos spital B NATRIURETIC PEPTIDE 2022-10-07 08:53:00 Neyda Carvalho [facility] ESTIMATED GFR 2022-10-07 08:53:00 Jesus Amos spital SMEAR REVIEW 2022-10-07 08:53:00 Jesus Amos Ho spital POC GLUCOSE 2022-10-07 03:04:00 Jesus Amos Ho spital POC GLUCOSE 2022-10-06 23:19:00 Jesus Amos Ho spital POC GLUCOSE 2022-10-06 18:00:00 Jesus Amos spital ECG 12-LEAD 2022-10-06 15:31:23 Jenniffer Adam H ospital POC GLUCOSE 2022-10-06 13:44:00 Jesus Amos Ho spital CBC WITH PLATELET AND 2022-10-06 10:19:00 Jair [facility] DIFFERENTIAL BASIC METABOLIC PANEL 2022-10-06 10:19:00 [facility] 2022-10-06 10:19:00 Jenniffer Adam H ospital PROTHROMBIN TIME WITH INR 2022-10-06 10:19:00 [facility] PARTIAL THROMBOPLASTIN 2022-10-06 10:19:00 [facility] TIME (PTT) B NATRIURETIC PEPTIDE 2022-10-06 10:19:00 [facility] PHOSPHORUS LEVEL 2022-10-06 10:19:00 [facility] HEPATIC FUNCTION PANEL 2022-10-06 10:19:00 [facility] LACTIC ACID LEVEL 2022-10-06 10:19:00 [facility] HEMOGLOBIN A1C 2022-10-06 10:19:00 [facility] ospital ESTIMATED GFR 2022-10-06 10:19:00 [facility] ospital LACTIC ACID LEVEL, SEPSIS 2022-10-06 05:39:00 [facility] - NOW AND REPEAT 2X EVERY 3 HOURS POC GLUCOSE 2022-10-06 04:12:00 [facility] ospital TOTAL IRON BINDING 2022-10-06 03:28:00 [facility] CAPACITY FERRITIN LEVEL 2022-10-06 03:28:00 [facility] ospital FOLATE LEVEL 2022-10-06 03:28:00 [facility] ospital VITAMIN B12 LEVEL 2022-10-06 03:28:00 [facility] THYROID STIMULATING 2022-10-06 03:28:00 [facility] HORMONE T4, FREE 2022-10-06 03:28:00 [facility] ospital ECG 12-LEAD 2022-10-06 01:59:26 [facility] COVID-19 QUALITATIVE 2022-10-06 01:28:00 [facility] RT-PCR LACTIC ACID LEVEL, SEPSIS 2022-10-06 01:28:00 [facility] - NOW AND REPEAT 2X EVERY 3 HOURS TROPONIN T 2022-10-06 01:28:00 [facility] ECG ED PRELIMINARY 2022-10-06 00:28:56 [facility] INTERPRETATION US DUPLEX VENOUS LOWER 2022-10-05 23:10:00 [facility] EXTREMITY BILATERAL XR CHEST 1 VW PORTABLE 2022-10-05 22:26:00 [facility] CBC WITH PLATELET AND 2022-10-05 22:10:00 [facility] DIFFERENTIAL COMPREHENSIVE METABOLIC 2022-10-05 22:10:00 [facility] PANEL TROPONIN T 2022-10-05 22:10:00 [facility] B NATRIURETIC PEPTIDE 2022-10-05 22:10:00 [facility] ESTIMATED GFR 2022-10-05 22:10:00 [facility] LACTIC ACID LEVEL, SEPSIS 2022-10-05 22:10:00 [facility] - NOW AND REPEAT 2X EVERY 3 HOURS SMEAR REVIEW 2022-10-05 22:10:00 [facility] ECG 12-LEAD 2022-10-05 21:43:05 [facility] TTE COMPLETE, WO CONTRAST, 2022-09-15 15:58:37 [facility] W DOPPLER ([id number]) TTE COMPLETE, W CONTRAST, 2022-04-21 15:29:52 [facility] W DOPPLER ([id number]) ECG 12-LEAD 2022-04-11 14:47:29 [facility] Ho spital POCT-GLUCOSE METER 2022-02-10 11:18:00 Yovanny [facility] POCT-GLUCOSE METER 2022-02-10 06:15:00 [facility] BASIC METABOLIC PANEL 2022-02-10 04:30:00 [facility] CBC W/PLT COUNT & AUTO 2022-02-10 04:30:00 Snell, [facility] MAGNESIUM 2022-02-10 04:30:00 [facility] CBC W/PLT COUNT & AUTO 2022-02-10 04:30:00 [facility] POCT-GLUCOSE METER 2022-02-10 00:23:00 [facility] POCT-GLUCOSE METER 2022-02-09 20:26:00 [facility] POCT-GLUCOSE METER 2022-02-09 16:29:00 [facility] CATHETERIZATION, HEART, 2022-02-09 11:47:00 Valerie Caballero [facility] POCT-GLUCOSE METER 2022-02-09 06:55:00 [facility] TSH/FREE T4 IF INDICATED 2022-02-09 05:26:00 Rosie Ordonez ru [facility] BASIC METABOLIC PANEL 2022-02-09 05:26:00 [facility] CBC W/PLT COUNT & AUTO 2022-02-09 05:26:00 [facility] HEPATIC FUNCTION PANEL 2022-02-09 05:26:00 [facility] MAGNESIUM 2022-02-09 05:26:00 [facility] CBC W/PLT COUNT & AUTO 2022-02-09 05:26:00 Yovanny [facility] POCT-GLUCOSE METER 2022-02-08 20:28:00 [facility] POCT-GLUCOSE METER 2022-02-08 16:23:00 [facility] TROPONIN I 2022-02-08 13:06:00 Rosie Ordonezircaterina [facility] POCT-GLUCOSE METER 2022-02-08 11:43:00 [facility] URINALYSIS W/ REFLEX URINE 2022-02-08 11:04:[address] [facility] C. DIFFICILE GDH TOXIN 2022-02-08 11:04:00 Monika Snell [facility] GI PATHOGEN PROFILE BY PCR 2022-02-08 11:04:00 Monika Snell [facility] 2D ECHO W/ DOPPLER 2022-02-08 09:13:40 Monika Snell [facility] (CW/PW/COLOR) [facility] ECG 12-LEAD 2022-02-08 06:35:27 Unknown, [facility] ECG 12-LEAD 2022-02-08 06:35:27 Unknown, [facility] XR CHEST 1 VIEW PORTABLE / 2022-02-08 06:24:[address] [facility] FERRITIN 2022-02-08 05:37:00 [facility] B-TYPE NATRIURETIC FACTOR 2022-02-08 05:37:00 Mery [facility] (BNP) [facility] CBC W/PLT COUNT & AUTO 2022-02-08 05:37:00 [facility] (MANUAL DIFFERENTIAL) 2022-02-08 05:37:00 [facility] BLOOD CULTURE 2022-02-08 05:37:00 [facility] COMPREHENSIVE METABOLIC 2022-02-08 05:37:00 [facility] HEMOGLOBIN A1C 2022-02-08 05:37:00 [facility] PROTHROMBIN TIME/INR 2022-02-08 05:37:00 [facility] LIPID PANEL 2022-02-08 05:37:00 [facility] MAGNESIUM 2022-02-08 05:37:00 Mery [facility] PHOSPHORUS 2022-02-08 05:37:00 [facility] TROPONIN I 2022-02-08 05:37:00 [facility] CBC W/PLT COUNT & AUTO 2022-02-08 05:37:00 [facility] DIFFERENTIAL [facility] PROCALCITONIN 2022-02-08 05:37:00 [facility] LACTIC ACID, VENOUS 2022-02-08 05:37:00 [facility] IRON, TIBC, % SAT. 2022-02-08 05:37:00 [facility] (WITHOUT FERRITIN) [facility] r POCT-GLUCOSE METER 2022-02-08 05:26:00 [facility] CARDIAC CATH REPORT - SCAN 2022-02-08 00:00:00 Provider, Default [facility] Scanning [facility] EKG-SCANNED 2022-02-08 00:00:00 Provider, Default [facility] es [facility] Plan of Care Planned Activity Planned Date Details Comments Source Future Scheduled 2025-02-[address] [facility] 00:00:00 (procedure) [code = [facility] 84164883] Future Scheduled 2025-02-[address] [facility] 00:00:00 (procedure) [code = [facility] [id number]] Future Scheduled 2025-02-[address] [facility] Test 00:00:00 (procedure) [code = [facility] 27524810] Future Scheduled 2023-02-[address] [...] Cessation Counseling and Screening (12+)] Future Scheduled 2022-12-11 [facility]neumococcal [facility] 09:25:54 Pediatrics (0 to 5 Years) and At-Risk Patients (6 to 64 Years) (1 - PCV) [code = Pneumococcal Vaccine: Pediatrics (0 to 5 Years) and At-Risk Patients (6 to 64 Years) (1 - PCV)] Future Scheduled 2022-12-11 Hepatitis C screening [facility] Test 09:25:54 (procedure) [code = 441592952] Future Scheduled 2022-12-11 COLONOSCOPY SCREENING [facility] Test 09:25:54 [code = COLONOSCOPY SCREENING] Future Scheduled 2022-12-11 SHINGLES VACCINES (1 Met [facility] Test 09:25:54 of 2) [code = SHINGLES VACCINES (1 of 2)] Future Scheduled 2022-12-11 COVID-19 VACCINE (4 - [facility] Test 09:25:54 Booster for Pfizer series) [code = COVID-19 VACCINE (4 - Booster for Pfizer series)] Future Scheduled 2022-12-11 INFLUENZA VACCINE [facility] Test 09:25:54 [code = INFLUENZA VACCINE] Future Scheduled 2022-12-11 DIABETIC FOOT EXAM [facility] Test 09:25:54 [code = DIABETIC FOOT EXAM] Future Scheduled 2022-12-11 DIABETES: RETINAL EYE [facility] Test 09:25:54 EXAM [code = DIABETES: RETINAL EYE EXAM] Future Scheduled 2022-11-01 Pneumococcal Vaccine: [facility] Test 13:17:37 Pediatrics (0 to 5 Years) and At-Risk Patients (6 to 64 Years) (1 - PCV) [code = Pneumococcal Vaccine: Pediatrics (0 to 5 Years) and At-Risk Patients (6 to 64 Years) (1 - PCV)] Future Scheduled 2022-11-01 DIABETIC FOOT EXAM [facility] Test 13:17:37 [code = DIABETIC FOOT EXAM] Future Scheduled 2022-11-01 Hepatitis C screening [facility] Test 13:17:37 (procedure) [code = 712296445] Future Scheduled 2022-11-01 COLONOSCOPY SCREENING [facility] Test 13:17:37 [code = COLONOSCOPY SCREENING] Future Scheduled 2022-11-01 SHINGLES VACCINES (1 Met [facility] Test 13:17:37 of 2) [code = SHINGLES VACCINES (1 of 2)] Future Scheduled 2022-11-01 COVID-19 VACCINE (4 - [facility] Test 13:17:37 Booster for Pfizer series) [code = COVID-19 VACCINE (4 - Booster for Pfizer series)] Future Scheduled 2022-11-01 INFLUENZA VACCINE [facility] 13:17:37 [code = INFLUENZA VACCINE] Future Scheduled 2022-11-01 DIABETES: RETINAL EYE [facility] Test 13:17:37 EXAM [code = DIABETES: RETINAL EYE EXAM] Future Scheduled 2022-10-[address] [facility] Test 00:00:00 (12+) [code = [facility] DEPRESSION SCREENING (12+)] Future Scheduled 2022-09-27 HEPATITIS B VACCINES Met [facility] Test 08:29:57 (1 of 3 - 3-dose series) [code = HEPATITIS B VACCINES (1 of 3 - 3-dose series)] Future Scheduled 2022-09-27 Pneumococcal Vaccine: [facility] Test 08:29:57 Pediatrics (0 to 5 Years) and At-Risk Patients (6 to 64 Years) (1 - PCV) [code = Pneumococcal Vaccine: Pediatrics (0 to 5 Years) and At-Risk Patients (6 to 64 Years) (1 - PCV)] Future Scheduled 2022-09-27 Hepatitis C screening [facility] Test 08:29:57 (procedure) [code = 896879485] Future Scheduled 2022-09-27 COLONOSCOPY SCREENING [facility] Test 08:29:57 [code = COLONOSCOPY SCREENING] Future Scheduled 2022-09-27 SHINGLES VACCINES (1 Met [facility] Test 08:29:57 of 2) [code = SHINGLES VACCINES (1 of 2)] Future Scheduled 2022-09-27 COVID-19 VACCINE (3 - [facility] Test 08:29:57 Booster for Pfizer series) [code = COVID-19 VACCINE (3 - Booster for Pfizer series)] Future Scheduled 2022-09-27 INFLUENZA VACCINE [facility] 08:29:57 [code = INFLUENZA VACCINE] [...] 00:00:00 [facility] (procedure[facility] [code = 14596542] Future Scheduled 2022-05-[address] [facility] (procedure) [code = 64947525] Future Scheduled 2022-05-[address] [facility] (procedure) [code = 45751643] Future Scheduled 2021-07-18 COVID-19 VACCINE (3 - [...] 00:00:00 examination Medical Center (regime/therapy) [code = 905553146] Future Scheduled 1978 Urine screening for [facility] Test 00:00:00 protein (procedure) Medical Center [code = 896845183] Future Scheduled 1978 DIABETIC EYE EXAM [facility] Test 00:00:00 [code = DIABETIC EYE Medical Center EXAM] Future Scheduled [address] [facility] 00[facility] examination [facility] (regime/therapy) [code = 974496493] Future Scheduled 1978 Urine screening for [facility] Test 00:00:00 protein (procedure) Medical Center [code = 862139008] Future Scheduled 1978 DIABETIC EYE EXAM [facility] Test 00:00:00 [code = DIABETIC EYE Medical Center EXAM] Future Scheduled [address] [facility] 00:00:00 examination [facility] Center (regime/therapy) [code = 273316839] Future Scheduled 1978 Urine screening for [facility] 00:00:00 protein (procedure) Medical Center [code = 726715941] Future Scheduled [address] [...] [facility] l Center colon (procedure) [code = 406493564] Future Scheduled [address] [facility] 00:00:00 malignant neoplasm of [facility]ica [facility] Center colon (procedure) [code = 365926209] Future Scheduled [address] [facility] 00:00:00 malignant neoplasm [facility] colon (procedure) [code = 665627600] Future Scheduled [address] [facility] 00:00:00 malignant neoplasm [facility] colon (procedure) [code = 247219918] Future Scheduled 1968 Sigmoidoscopy [code [facility]oscopy] Medical Rodrigueze r Future Scheduled [address] 00:00:00 (combo) [code = CT Medical C enter Colonography (combo)] Future Scheduled [address] [facility] 00:00:00 malignant neoplasm of [facility] Center colon (procedure) [code = 681729919] Future Scheduled [address] [facility] [facility] 00:00:00 malignant neoplasm of [facility] Center colon (procedure) [code = 046530184] Future Scheduled [address] [facility] 00:00:00 malignant neoplasm of [facility] Center colon (procedure) [code = 471799064] Future Scheduled [address] [facility] 00:00:00 malignant neoplasm of [facility] Center colon (procedure) [code = 606829842] Future Scheduled 1968 Sigmoidoscopy [facility]code [facility] S[facility]oscopy] Medical Brittany schmidt Future Scheduled [address] [facility] 00:00:00 (combo) [code = CT Medical C enter Colonography (combo)] Future Scheduled [address] [facility] 00:00:00 malignant neoplasm of [facility] Center colon (procedure) [code = 744719309] Future Scheduled [address] [facility] 00:00:00 malignant neoplasm of [facility]ica [facility] Center colon (procedure) [code = 061103695] Future Scheduled [address] [facility] 00:00:00 malignant neoplasm of [facility]ica [facility] Center colon (procedure) [code = 219928548] Future Scheduled [address] [facility] [facility] 00:00:00 malignant neoplasm of Medica l Center colon (procedure) [code = 647739598] Future Scheduled 1968 Sigmoidoscopy [facility]code [facility] S[facility]oscopy] Medical Brittany schmidt Future Appointment 2022-12-12 Robin Reddy MD, [id number] [facility] 09:30:00 [facility]; [address] [address] Encounters Start End Encounter Admission Attending Care Care Encounter Source Date/Time Date/Time Type Type Clinicians Facility Department ID 2021-11-23 Outpatient [facility] 114178-803 [facility] 10:59:54 87555 [facility] 2021-08-04 Outpatient [facility] [id number] 1 [facility] 11:20:52 ETTA 2023-01-15 2023-01-15 Outpatient JOHN NAVARRETE [facility] [id number] [facility] 00:00:00 00:00:00 ETTA mccray of Medicin e 2022-12-11 2022-12-11 Travel 1.2.840.1 1.2.091.574 4134 [id number] Methodi 00:00:00 00:00:[address] 3.430.2.7 0.2.7.3.698 Ho spita .3.404917 084.8 l .8 2022-12-08 2022-12-08 Orders Vobugari, 1.2.840.1 [id number] 2100 669005 Methodi 00:00:00 00:00:00 Only Mgean 69981.1.[address] 3.430.2.7 Hospit a .3.712739 l .8 2022-12-08 2022-12-08 Documentat Vomarisagari, 1.2.840.1 [id number] 2 [id number] Methodi 00:00:00 00:00:00 ion Megan 16824.1.[address] 3.430.2.7 Hospit a .3.326128 l .8 2022-12-08 2022-12-08 Telephone Delos 1.2.840.1 [id number] 2099 405304 Methodi 00:00:00 00:00:00 [place], [address].1.[address] Aniyah 3.430.2.7 Hospit a .3.276618 l .8 2022-12-08 2022-12-08 Travel 1.2.840.1 1.2.504.146 5294 076941 Methodi 00:00:00 00:00:[address] 3.430.2.7 0.2.7.3.698 Ho spita .3.863175 084.8 l .8 2022-12-07 2022-12-07 Documentat Rodríguez, 1.2.840.1 [id number] 221 [id number] Methodi 00:00:00 00:00:00 ion Marcie 82571.1.[address] 3.430.2.7 Hospit a .3.511991 l .8 2022-12-07 2022-12-07 [facility] [id number] 032 [place] 00:00:00 00:00:00 ROBIN [address] 2022-12-04 2022-12-04 Travel 1.2.840.1 1.2.059.561 2284 223452 Methodi 00:00:00 00:00:[address] 3.430.2.7 0.2.7.3.698 Ho spita .3.255466 084.8 l .8 2022-12-04 2022-12-04 Outpatient [facility] [id number] 849 [place] 00:00:00 00:00:00 JESUS [address] 2022-12-01 2022-12-01 Telephone Rashi, 1.2.840.1 [id number] 2 [id number] Methodi 00:00:00 00:00:[address] [facility] 3.430.2.7 Hospit a .3.108525 l .8 2022-11-30 2022-11-30 Lab Jair 1.2.840.1 [id number] 64794 36451 Methodi 07:05:00 07:10:[address] 3.430.2.7 Hospit a .3.547305 l .8 2022-11-30 2022-11-30 [facility] [id number] 2962 [place] 00:00:00 00:00:00 JENNIFFER [address] 2022-11-29 2022-11-29 Lab Barry 1.2.840.1 [id number] 7945 Methodi 16:20:00 16:25:[address] 3.430.2.7 Hospit a .3.585736 l .8 2022-11-29 2022-11-29 Office Robin Reddy 1.2.840.1 [id number] Methodi 15:00:00 16:22:30 Visit Megan Guadarrama 39975.1.[address] 3.430.2.7 Hospit a .3.028387 l .8 2022-11-29 2022-11-29 Telephone Chiara 1.2.840.1 [id number] 21 [id number] Methodi 00:00:00 00:00:[address] 3.430.2.7 Hospit a .3.218197 l .8 2022-11-29 2022-11-29 [facility] [id number] 133 [place] 00:00:00 00:00:[address] ROBIN [address] 2022-11-29 2022-11-29 [facility] [id number] 000 [place] 00:00:00 00:00:00 ROBIN [address] 2022-11-28 2022-11-28 Office Renia, 1.2.840.1 [id number] 1731 Methodi 09:30:00 15:49:40 Visit Jesus Silveira 70901.1.[address] 3.430.2.7 Hospit a .3.366569 l .8 2022-11-28 2022-11-28 Travel 1.2.840.1 1.2.614.564 4094 426020 Methodi 00:00:00 00:00:[address] 3.430.2.7 0.2.7.3.698 Ho spita .3.454730 084.8 l .8 2022-11-28 2022-11-28 [facility] [id number] 835 [place] 00:00:00 00:00:00 JESUS [address] 2022-11-22 2022-11-22 Office Rashi, 1.2.840.1 [id number] 569 [id number] Methodi 09:30:00 09:54:40 Visit Deepam 28872.1.[address] Kimo 3.430.2.7 Hospit a .3.672717 l .8 2022-11-22 2022-11-22 [facility] 2100 [id number] [place] 00:00:00 00:00:00 DEEPAM [address] 2022-11-20 2022-11-20 Telephone Rashi, 1.2.840.1 [id number] 2 [id number] Methodi 00:00:00 00:00:[address] Kimo 3.430.2.7 Hospit a .3.010633 l .8 2022-10-31 2022-10-31 Office Latosha, 1.2.840.1 [id number] 198458 0502 Methodi 10:20:00 12:59:16 Visit Jesus Silveira 63457.1.[address] 3.430.2.7 Hospit a .3.698088 l .8 2022-10-31 2022-10-31 Office Reina, 1.2.840.1 [id number] 4865 Methodi 10:20:00 12:59:16 Visit Jesus Silveira 64886.1.[address] 3.430.2.7 Hospit a .3.266636 l .8 2022-10-31 2022-10-31 Travel 1.2.840.1 1.2.152.637 0098 681840 Methodi 00:00:00 00:00:[address] 3.430.2.7 0.2.7.3.698 Ho spita .3.128080 084.8 l .8 2022-10-31 2022-10-31 Travel 1.2.840.1 1.2.388.940 7468 392860 Methodi 00:00:00 00:00:[address] 3.430.2.7 0.2.7.3.698 Ho spita .3.635588 084.8 l .8 2022-10-05 2022-10-26 [facility] Miguel Quinteros 1.2.840.1 79202 1002 [id number] Methodi 15:39:00 16:14:00 Encounter Jenniffer Adam 12384.1.[address] [facility] 3.430.2.7 [facility] .3.023934 l Clif Barone .8 Kojo Tucker 2022-10-05 2022-10-26 [facility] KOJO TUCKER [facility] 060 07926 54004 P[place] 00:00:00 00:00:00 Encounter [address] 2022-10-13 2022-10-13 Surgery Marco, 1.2.840.1 [id number] 55139 61794 Methodi 11:35:00 13:05:[address]254.1.[address] 3.430.2.7 Hospit a .3.565419 l .8 2022-10-13 2022-10-13 Surgery Marco, 1.2.840.1 [id number] 84644 64030 Methodi 11:35:00 13:05:[address] Derek L[address]154.1.[address] 3.430.2.7 Hospit a .3.252974 l .8 2022-10-13 2022-10-13 Anesthesia Marshall Gage 1.2.840.1 [id number] Methodi 11:15:00 11:47:00 Event Omayra Owens 38044.1.[address] 3.430.2.7 Hospit a .3.893584 l .8 2022-10-13 2022-10-13 Anesthesia Merari, Tiffaniya 1.2.840.1 [id number] Methodi 11:15:00 11:47:00 Event Omayra Owens 09609.1.[address] 3.430.2.7 Hospit a .3.389159 l .8 2022-10-11 2022-10-11 Surgery Latosha, 1.2.840.1 [id number] 9495 Methodi 17:17:00 18:37:00 Jesus R[address] 78236.1.[address] 3.430.2.7 Hospit a .3.968696 l .8 2022-10-11 2022-10-11 Surgery Latosha 1.2.840.1 [id number] 8783 Methodi 17:17:00 18:37:00 Jesus R[address] 67505.1.[address] 3.430.2.7 Hospit a .3.384482 l .8 2022-10-11 2022-10-11 Surgery Reina, 1.2.840.1 [id number] 449671 9385 Methodi 09:47:00 11:07:00 Jesus R[address] 42069.1.[address] 3.430.2.7 Hospit a .3.127151 l .8 2022-10-11 2022-10-11 Surgery Latosha, 1.2.840.1 [id number] 403783 6731 Methodi 09:47:00 11:07:[address]17.1.[address] 3.430.2.7 Hospit a .3.020725 l .8 2022-10-10 2022-10-10 Anesthesia Jacqueline, 1.2.840.1 [id number] 21 [id number] Methodi 07:52:57 07:52:57 [place] 70492.1.[address] [facility] 3.430.2.7 Hosp korina .3.414961 l .8 2022-10-10 2022-10-10 Anesthesia Runnells, 1.2.840.1 [id number] [id number] Methodi 07:52:57 07:52:57 [place] 53150.1.[address] [facility] 3.430.2.7 Hosp korina .3.816930 l .8 2022-09-26 2022-09-26 Office Reina, 1.2.840.1 [id number] 8877 Methodi 10:00:00 13:47:03 Visit Jesus R. 46368.1.[address] 3.430.2.7 Hospit a .3.843990 l .8 2022-09-26 2022-09-26 Office Latosha, 1.2.840.1 [id number] 1995 Methodi 10:00:00 13:47:03 Visit Jesus R. 80987.1.[address] 3.430.2.7 Hospit a .3.378288 l .8 2022-09-26 2022-09-26 Travel 1.2.840.1 1.2.629.100 2490 151692 Methodi 00:00:00 00:00:[address] 3.430.2.7 0.2.7.3.698 Ho spita .3.862925 084.8 l .8 2022-09-26 2022-09-26 Travel 1.2.840.1 1.2.716.069 4975 415943 Methodi 00:00:00 00:00:[address] 3.430.2.7 0.2.7.3.698 Ho spita .3.589321 084.8 l .8 2022-09-15 2022-09-15 Travel 1.2.840.1 1.2.714.730 3756 450573 Methodi 00:00:00 00:00:[address] 3.430.2.7 0.2.7.3.698 Ho spita .3.860482 084.8 l .8 2022-09-15 2022-09-15 [facility] [id number] 502 [place] 00:00:00 00:00:00 JESUS [address] 2022-09-15 2022-09-15 Travel 1.2.840.1 1.2.020.519 0285 159293 Methodi 00:00:00 00:00:[address] 3.430.2.7 0.2.7.3.698 Ho spita .3.432006 084.8 l .8 2022-09-12 2022-09-12 Telephone Ariana, 1.2.840.1 [id number] 761 [id number] Methodi 00:00:00 00:00:[address] 3.430.2.7 Hospit a .3.911146 l .8 2022-09-12 2022-09-12 Telephone Ariana, 1.2.840.1 [id number] 195 [id number] Methodi 00:00:00 00:00:[address] 3.430.2.7 Hospit a .3.923373 l .8 2022-08-02 2022-08-02 Orders Hayden Pierrein 1.2.840.1 [id number] 2099 240225 Methodi 00:00:00 00:00:[address] 3.430.2.7 Hospit a .3.492819 l .8 2022-08-02 2022-08-02 Orders Hayden Pierrein 1.2.840.1 [id number] 2099 553163 Methodi 00:00:00 00:00:[address] 3.430.2.7 Hospit a .3.941681 l .8 2022-07-13 2022-07-13 Outpatient JOHN NAVARRETE [facility] [id number] [address] [place] [address] 07:40:38 09:49:03 ETTA Richardson 2022-07-11 2022-07-11 Office Latosha, 1.2.840.1 [id number] 5333 Methodi 10:00:00 10:10:00 Visit Jesus Silveira 32127.1.[address] 3.430.2.7 Hospit a .3.528823 l .8 2022-07-11 2022-07-11 Office Latosha, 1.2.840.1 [id number] 342407 3848 Methodi 10:00:00 10:10:00 Visit Jesus Silveira 78962.1.[address] 3.430.2.7 Hospit a .3.607664 l .8 2022-07-11 2022-07-11 Travel 1.2.840.1 1.2.339.641 7557 021153 Methodi 00:00:00 00:00:[address] 3.430.2.7 0.2.7.3.698 Ho spita .3.482567 084.8 l .8 2022-07-11 2022-07-11 Travel 1.2.840.1 1.2.967.304 5184 699688 Methodi 00:00:00 00:00:[address] 3.430.2.7 0.2.7.3.698 Ho spita .3.171309 084.8 l .8 2022-04-21 2022-04-21 Travel 1.2.840.1 1.2.138.683 7149 591206 Methodi 00:00:00 00:00:[address] 3.430.2.7 0.2.7.3.698 Ho spita .3.511599 084.8 l .8 2022-04-21 2022-04-21 Outpatient LATOSHA, [facility] [id number] 165 [place] 00:00:00 00:00:00 JESUS [address] 2022-04-21 2022-04-21 Travel 1.2.840.1 1.2.610.595 3576 158615 Methodi 00:00:00 00:00:[address] 3.430.2.7 0.2.7.3.698 Ho spita .3.870871 084.8 l .8 2022-04-11 2022-04-11 Office Latosha, 1.2.840.1 [id number] 598711 3123 Methodi 10:15:00 14:56:42 Visit Jesus Silveira 02156.1.[address] 3.430.2.7 Hospit a .3.329144 l .8 2022-04-11 2022-04-11 Office Latosha, 1.2.840.1 [id number] 618731 3532 Methodi 10:15:00 14:56:42 Visit Jesus RBraden 19874.1.[address] 3.430.2.7 Hospit a .3.938297 l .8 2022-04-11 2022-04-11 Travel 1.2.840.1 1.2.941.819 5187 635743 Methodi 00:00:00 00:00:[address] 3.430.2.7 0.2.7.3.698 Ho spita .3.704984 084.8 l .8 2022-04-11 2022-04-11 Travel 1.2.840.1 1.2.599.155 5303 522996 Methodi 00:00:00 00:00:[address] 3.430.2.7 0.2.7.3.698 Ho spita .3.790625 084.8 l .8 2022-02-28 2022-02-28 Travel 1.2.840.1 1.2.888.335 3362 744767 Methodi 00:00:00 00:00:[address] 3.430.2.7 0.2.7.3.698 Ho spita .3.777525 084.8 l .8 2022-02-28 2022-02-28 Travel 1.2.840.1 1.2.926.348 4286 245929 Methodi 00:00:00 00:00:[address] 3.430.2.7 0.2.7.3.698 Ho spita .3.890999 084.8 l .8 2022-02-08 2022-02-10 [facility] [id number] [facility] 04:45:00 15:44:00 Encounter [facility] 2022-02-08 2022-02-10 Inpatient ER [facility] Cardiology [id number] [facility] 04:45:00 15:44:00 [facility] 2022-02-08 2022-02-10 [facility] [id number] 04:45:00 15:44:00 Encounter [facility] 2022-02-09 2022-02-09 Surgery [facility] [id number] [address] 12:00:00 13:02:00 [facility] 2022-02-09 2022-02-09 Surgery Park, [facility] [id number] [address] 12:00:00 13:02:00 [facility] 2022-02-08 2022-02-08 Orders [facility] [id number] 00:00:00 00:00:00 Only [facility] 2022-02-08 2022-02-08 Travel [facility] [id number] [facility] 00:00:00 00:00:00 [facility] 2022-02-08 2022-02-08 Orders [facility] [id number] [address] 00:00:00 00:00:00 [facility] 2022-02-08 2022-02-08 Travel [facility] [id number] [facility] 00:00:00 00:00:00 [facility] 2022-02-07 2022-02-07 Documentat [facility] [id number] 00:00:00 00:00:00 ion [facility] 2022-02-07 2022-02-07 [facility] [id number] [id number] 00:00:00 00:00:00 ion [facility] 2022-01-12 2022-01-12 Outpatient JOHN NAVARRETE [facility] [id number] [facility] 09:03:23 10:36:32 ETTA Abraham Medicin e 2021-07-14 2021-07-14 Outpatient JOHN NAVARRETE Leslye [id number] [facility] 08:05:04 09:20:35 ETTA mccray of Medicin e 2020-10-12 2020-10-12 Outpatient [facility] [id number] [facility] 00:00:00 00:00:00 2020-03-15 2020-03-15 Outpatient [facility] 30 [id number] Common 08:30:00 08:30:00 [facility] 2019-11-24 2019-11-24 Outpatient [facility] 29 07029 Common 09:12:00 09:12:00 [facility] 2019-11-10 2019-11-10 Outpatient [facility] 28 69464 Common 09:00:00 09:00:00 t [facility] Results Test Description Test Time Test Comments Results Result Comments Source Surgical pathology request 2022-12-11 19:04:16 Test Item Value Reference Range Interpretation Comme nts Case number (test code = 1048200) [id number] Surgical pathology report (test code = See link below for PDF Lab R eport 6006) Result status (test code = 4425859) This is Supplemental Report for [id number] [facility]2022-12-29 18:23:00 Test Item Value Reference Range Interpretation Comments POC glucose (test code = 109 mg/dL 65-99 H Ope rator Name: 14484-3) Harjit mcgowan ID: [id number] able: [facility] Notified cart pusher Interpretation (test Abnormal code = 50351-0) [facility]2022-12-29 18:23:00 Test Item Value Reference Range Interpretation Comments POC glucose (test code = 109 mg/dL 65-99 H Ope rator Name: 31115-8) Harjit mcgowan ID: [id number] able: [facility] Notified cart pusher Interpretation (test Abnormal code = 19374-0) [facility] RBC, 1 [id number] 04:18:00 Test Item Value Reference Range Interpretation Comments Product name (test code Red Blood Cells -1, = 25) Leukored Unit number (test code [id number] = 3752660) Product code (test code U4053G66 = 3092) Dispense status (test Transfused code = 24) Blood expiration date (test code = 302) Blood type code (test 5100 code = 308) Blood type (test code = O POSITIVE 1314) Compatibility (test Compatible code = 6400) [facility] RBC, 1 [id number] 04:18:00 Test Item Value Reference Range Interpretation Comments Product name (test code Red Blood Cells -1, = 25) Leukored Unit number (test code = [id number] 1999503) Product code (test code I3715Q59 = 3092) Dispense status (test Transfused code = 24) Blood expiration date (test code = 302) Blood type code (test code = 308) Blood type (test code = O POSITIVE 1314) Compatibility (test code Compatible = 6400) [facility] [id number] 19:26:06 Test Item Value Reference Range Interpretation Comments Case number (test code = [id number]) Surgical pathology See link below for report (test code = PDF Lab Report 2255) Result status (test code This is Final Report = [id number]) for [id number] [facility] [id number] 20:16:00 Test Item Value Reference Range Interpretation Comments Urine culture growth after Specimen isolate (test 24 hours InformationSpe [facility] code = 55794-7) Source: [facility] Site: Random vo id [facility]2022-12-17 20:16:00 Test Item Value Reference Range Interpretation Comments Urine culture growth after Specimen isolate (test 24 hours InformationSpe [facility] code = 00658-7) Source: [facility] Site: [facility] [id number] 12:35:00 Test Item Value Reference Range Interpretation Comments Ionized calcium, 1.27 mmol/L 1.11-1.32 SP RAN UNDE R arterial (test code 17027515 161 = 46273-4) [facility], [id number] 12:35:00 Test Item Value Reference Range Interpretation Comments Ionized calcium, 1.27 mmol/L 1.11-1.32 SP RAN UNDE R arterial (test code 67986641 161 = 24337-6) [facility] [id number] 21:30:16 Test Item Value Reference Range Interpretation Comments Ventricular rate (test 71 code = 253) Atrial rate (test code 71 = 255) MT interval (test code 152 = 266) QRSD interval (test 100 code = 260) QT interval (test code 486 = 264) QTC interval (test code 528 = 265) P axis 1 (test code = 35 267) QRS axis 1 (test code = -52 268) T wave axis (test code -66 = 270) EKG impression (test Normal sinus code = 273) rhythm-Left axis deviation-Anterior infarct (cited on or before 11-APR-2022)-Prolonged QT-Abnormal ECG-In automated comparison with ECG of 10-OCT-2022 10:11,-premature ventricular complexes are no longer present-Nonspecific T wave abnormality now evident in Anterior leads- [facility] 12 [id number] 21:30:16 Test Item Value Reference Range Interpretation Comments Ventricular rate (test code = 253) Atrial rate (test code = 255) MT interval (test code = 266) QRSD interval [...] wave abnormality now evident in [facility]terior leads- [facility] RNA [Presence] in Respiratory specimen by KHAI with probe [id number] 05:06:53 Test Item Value Reference Range Interpretation Comments SARS-CoV-2 (COVID-19) RNA Not detected [Presence] in Respiratory specimen by KHAI with probe detection (test code = 98601-2) Whether patient is employed in a Unknown healthcare setting (test code = 29974-8) Whether the patient has symptoms Unknown related to condition of interest (test code = 12300-2) Whether the patient was Unknown hospitalized for condition of interest (test code = 16280-4) Whether the patient was admitted Unknown to intensive care unit (ICU) for condition of interest (test code = 51119-8) Whether patient resides in a Unknown congregate care setting (test code = 72871-1) status (test code = Unknown 58350-5) Date and time of symptom onset Unknown (test code = 00332-1) [facility] Preliminary Interpretation - Not an [id number] 00:28:56 Test Item Value Reference Range Interpretation Comments GABINO (test code = GABINO) Miguel Quinteros MD 10/31/2022 4:27 [facility] Preliminary Interpretation - Not an OrderPerformed by: Miguel Quinteros MDAuthorized by: Miguel Quinteros MD ECG reviewed by ED Physician in the absence of a printed circuit board reworker: yes Interpretation: Interpretation: abnormal Rate: ECG rate: 86 ECG rate assessment: normal Rhythm: Rhythm: sinus rhythm Ectopy: Ectopy: bigeminy and PVCs QRS: QRS axis: Normal QRS intervals: NormalST segments: ST segments: NormalOther findings: Other findings: prolonged qTc interval Lab Interpretation Abnormal (test code = 53236-8) [facility] ED Preliminary Interpretation - Not an [id number] 00:28:56 Test Item Value Reference Range Interpretation Comments GABINO (test code = GABINO) Miguel Quinteros MD 10/31/2022 4:27 [facility] Preliminary Interpretation - Not an OrderPerformed by: Miguel Quinteros MDAuthorized by: Miguel Quinteros MD ECG reviewed by ED Physician in the absence of a printed circuit board reworker: yes Interpretation: Interpretation: abnormal Rate: ECG rate: 86 ECG rate assessment: normal Rhythm: Rhythm: sinus rhythm Ectopy: Ectopy: bigeminy and PVCs QRS: QRS axis: Normal QRS intervals: NormalST segments: ST segments: NormalOther findings: Other findings: prolonged qTc interval Lab Interpretation Abnormal (test code = 08323-1) [facility] RNA [Presence] in Respiratory specimen by KHAI with probe [id number] 23:41:33 Test Item Value Reference Range Interpretation Comments SARS-CoV-2 (COVID-19) RNA Not detected [Presence] in Respiratory specimen by KHAI with probe detection (test code = 52253-5) Whether patient is employed in a Unknown healthcare setting (test code = 12959-3) Whether the patient has symptoms Unknown related to condition of interest (test code = 21171-3) Whether the patient was Unknown hospitalized for condition of interest (test code = 28740-5) Whether the patient was admitted Unknown to intensive care unit (ICU) for condition of interest (test code = 12496-7) Whether patient resides in a Unknown congregate care setting (test code = 60504-0) status (test code = Unknown 42071-7) Date and time of symptom onset Unknown (test code = 84276-6) [facility] 12 [id number] 20:48:01 Test Item Value Reference Range Interpretation Comments Ventricular rate (test code = 253) Atrial rate (test code = 255) MT interval (test code = 266) QRSD interval [...] ECG-No previous ECGs available-Electronica lly Signed By Amaya PEÑA, cristal ([id number]) on 04/11/2022 3:37:39 PM [facility] [id number] 13:35:08 Test Item Value Reference Range Interpretation Comments CULTURE A From Anaerobic (BEAKER) (test Bottle Only code = 1095) Diphtheroid GRAM STAIN From anaerobic RESULT (BEAKER) bottle only: gram (test code = positive 1123) coccobacilli BLOOD [id number] 10:00:55 Test Item Value Reference Range Interpretation Comments CULTURE (BEAKER) (test No growth in 5 days code = 1095) POC-Glucose [id number] 11:29:37 Test Item Value Reference Range Interpretation Comments POC-Glucose Meter (test 190 mg/dL 70-110 H : TE STED AT [facility] code = 1538) [address] [place] [id number]: Sheet Manager/Techni cristina ID = [id number] for Mckeon, Cecelia erickson Lab Interpretation (test Abnormal code = 24737-5) [facility] [id number] 11:29:37 Test Item Value Reference Range Interpretation Comments POC-Glucose Meter (test 190 mg/dL 70-110 H : TE STED AT [facility] code = 1538) [address] [place] [place] [address]508: Sheet Manager/Techni cristina ID = [id number] for Mckeon, Cecelia erickson Lab Interpretation (test Abnormal code = 72792-7) [facility] [id number] 11:29:37 Test Item Value Reference Range Interpretation Comments POC-Glucose Meter (test 190 mg/dL 70-110 H : [facility] = [facility]38[facility] [address] [place] [place] [address]508: Sheet Manager/Techni cristina ID = [id number] for Mckeon, Cecelia erickson Lab Interpretation (test Abnormal code = 82220-2) [facility]-GLUCOSE [id number] 11:29:37 Test Item Value Reference Range Interpretation Comments POC-GLUCOSE METER 190 mg/dL 70-110 H : TESTED A T [facility] [address] (BEAKER) (test code [facility], = 1538) [place] [address]14738: Sheet Manager/Techni cristina ID = [id number] for Andreas anteryan, Crystal POCT-GLUCOSE [id number] 06:28:06 Test Item Value Reference Range Interpretation Comments POC-GLUCOSE METER 168 mg/dL 70-110 H : TESTED A T [facility] [address] (BEAKER) (test code [facility], = 1538) [place] [address]14738: Sheet Manager/Techni cristina ID = [id number] for Amira Espinalen BASIC METABOLIC [id number] 06:03:57 Test Item Value Reference Range Interpretation [...] S NOT APPLICABLE FOR DIALYSIS PATIEN TS. Sheet Manager ID - LITOOperator ID - LITOOperator ID - LITOOperator ID - LITOOperator ID - LITOOperator ID - LITOOperator ID - LITOOperator ID - LITOOperator ID - LITOOperator ID - [id number] 06:00:25 Test Item Value Reference Range Interpretation Comments MAGNESIUM (BEAKER) (test code = 2.0 mg/dL 1.5-3.0 627) Sheet Manager ID - LITOOperator ID - LITOOperator ID - LITOOperator ID - LITOCBC W/PLT COUNT & AUTO [id number] 05:48:50 Test Item Value Reference Range Interpretation [...] PERCENT (BEAKER) (test code = 2801) POCT-GLUCOSE [id number] 00:34:49 Test Item Value Reference Range Interpretation Comments POC-GLUCOSE METER 238 mg/dL 70-110 H : TESTED A T [facility] 1317 (BEAKER) (test code [facility], = 1538) [place] [address] 478: Sheet Manager/Techni cristina ID = [id number] for Katherine Alexis POCT-GLUCOSE [id number] 20:38:11 Test Item Value Reference Range Interpretation Comments POC-GLUCOSE METER 261 mg/dL 70-110 H : TESTED A T [facility] (BEAKER) ([facility] [place] [address] 478: Sheet Manager/Techni cristina ID = [id number] for Brow n, Sherin POCT-GLUCOSE [id number] 18:58:16 Test Item Value Reference Range Interpretation Comments POC-GLUCOSE METER 138 mg/dL 70-110 H : TESTED A T [facility] [address] (BEAKER) (test code [address], = 1538) [facility] [place] 77 478: Sheet Manager/Techni cristina ID = [id number] for Chantell Ruth POCT-GLUCOSE [id number] 07:07:59 Test Item Value Reference Range Interpretation Comments POC-GLUCOSE METER 165 mg/dL 70-110 H : TESTED A T [facility] [address]17 (BEAKER) (test code [address], = 1538) [facility] [place] 77 478: Sheet Manager/Techni cristina ID = [id number] for Sherin Espinal TSH/FREE T4 IF [id number] 06:26:31 Test Item Value Reference Range Interpretation Comments THYROID STIMULATING HORMONE 1.460 uIU/mL 0.350-5.500 (BEAKER) (test code = 772) Sheet Manager ID - [id number] METABOLIC [id number] 06:13:13 Test Item Value Reference Range Interpretation [...] S NOT APPLICABLE FOR DIALYSIS PATIEN TS. Sheet Manager ID - [id number] ID - [id number] ID - [id number] ID - qfex49Ntuxdjig ID - mjea50Jzonsikl ID - sbhy97Vqasyyms ID - ivyb17Ykbbqbjk ID - lwkx24Lmhgvvuk ID - txko12Phyixarv ID - [id number] FUNCTION [id number] 06:13:08 Test Item Value Reference Range Interpretation [...] (test code = 22 U/L 5-50 347) Sheet Manager ID - [id number] ID - [id number] ID - [id number] ID - omkp97Zwjckskw ID - mrvb72Ryylupco ID - ahof67Fyqeitok ID - [id number] W/PLT COUNT & AUTO [id number] 06:11:44 Test Item Value Reference Range Interpretation [...] H PERCENT (BEAKER) (test code = 2801) [id number] 06:05:35 Test Item Value Reference Range Interpretation Comments MAGNESIUM (BEAKER) (test code = 2.1 mg/dL 1.5-3.0 627) Sheet Manager ID - [id number] ID - [id number] ID - [id number] ID - [id number] POCT-GLUCOSE [id number] 20:52:17 Test Item Value Reference Range Interpretation Comments POC-GLUCOSE METER 103 mg/dL 70-110 : TESTED A T [facility] [address] (BEAKER) (test code [address], = 1538) [facility] [place] 77 478: Sheet Manager/Techni cristina ID = [id number] for Sherin Espinal GI Pathogen Profile by PCR-ID [id number] 17:47:01 Test Item Value Reference Range Interpretation Comments CAMPYLOBACTER PCR (test Not detected Not detected code = 12572-9) PLESIOMONAS SHIGELLOIDES Not detected Not detected (PCR) (test code = 03400-3) SALMONELLA (PCR) (test Not detected Not detected code = 76774-8) YERSINIA ENTEROCOLITICA Not detected Not detected (PCR) (test code = 03461-8) VIBRIO CHOLERAE (PCR) Not detected Not detected (test code = 98391-4) ENTEROAGGREGATIVE E. Not detected Not detected COLI (EAEC) BY PCR (test code = 16245-2) ENTEROPATHOGENIC E. COLI Not detected Not detected (EPEC) BY PCR (test code = 93412-1) ENTEROTOXIGENIC E. COLI Not detected Not detected (ETEC) LT/ST BY PCR (test code = 00165-4) SHIGA-LIKE Not detected Not detected TOXIN-PRODUCING E. COLI (STEC) STX1/STX2 (test code = 14953-8) E. COLI O157 (PCR) (test code = 66995-4) SHIGELLA/ENTEROINVASIVE Not detected Not detected E. COLI (EIEC) BY PCR (test code = 07966-5) CRYPTOSPORIDIUM (PCR) Not detected Not detected (test code = 72969-2) CYCLOSPORA CAYETANENSIS Not detected Not detected (PCR) (test code = 68673-6) ENTAMOEBA HISTOLYTICA Not detected Not detected (PCR) (test code = 55718-3) GIARDIA LAMBLIA (PCR) Not detected Not detected (test code = 64023-9) ADENOVIRUS F 40/41 (PCR) Not detected Not detected (test code = 13200-6) ASTROVIRUS (PCR) (test Not detected Not detected code = 78529-3) NOROVIRUS GI/GII (PCR) Not detected Not detected (test code = 95902-2) ROTAVIRUS A (PCR) (test Not detected Not detected code = 53343-9) SAPOVIRUS (I, II, IV, V) Not detected Not detected BY PCR (test code = 29240-5) VIBRIO Not detected Not detected (PARAHAEMOLYTICUS, VULNIFICUS) (test code = 22112-4) GABINO (test code = GABINO) Other viruses, [...] [facility] using the [employer] Gastrointestinal Panel. It is FDA cleared and has been verified and approved by the [facility] Molecular Diagnostics Laboratory for clinical use. This laboratory is CLIA-certified and [employer] (CAP)-accredited to perform high complexity testing. [facility] by PCR-ID [id number] 17:47:01 Test Item Value Reference Range Interpretation Comments CAMPYLOBACTER PCR (test Not detected Not detected code = 72642-7) PLESIOMONAS SHIGELLOIDES Not detected Not detected (PCR) (test code = 25078-6) SALMONELLA (PCR) (test Not detected Not detected code = 86150-7) YERSINIA ENTEROCOLITICA Not detected Not detected (PCR) (test code = 32312-2) VIBRIO CHOLERAE (PCR) Not detected Not detected (test code = 44233-0) ENTEROAGGREGATIVE E. Not detected Not detected COLI (EAEC) BY PCR (test code = 08969-7) ENTEROPATHOGENIC E. COLI Not detected Not detected (EPEC) BY PCR (test code = 94674-3) ENTEROTOXIGENIC E. COLI Not detected Not detected (ETEC) LT/ST BY PCR (test code = 24999-6) SHIGA-LIKE Not detected Not detected TOXIN-PRODUCING E. COLI (STEC) STX1/STX2 (test code = 41582-4) E. COLI O157 (PCR) (test code = 54242-7) SHIGELLA/ENTEROINVASIVE Not detected Not detected E. COLI (EIEC) BY PCR (test code = 36981-5) CRYPTOSPORIDIUM (PCR) Not detected Not detected (test code = 76407-9) CYCLOSPORA CAYETANENSIS Not detected Not detected (PCR) (test code = 89177-7) ENTAMOEBA HISTOLYTICA Not detected Not detected (PCR) (test code = 30538-2) GIARDIA LAMBLIA (PCR) Not detected Not detected (test code = 81383-9) ADENOVIRUS F 40/41 (PCR) Not detected Not detected (test code = 16000-5) ASTROVIRUS (PCR) (test Not detected Not detected code = 02631-2) NOROVIRUS GI/GII (PCR) Not detected Not detected (test code = 05002-1) ROTAVIRUS A (PCR) (test Not detected Not detected code = 78208-8) SAPOVIRUS (I, II, IV, V) Not detected Not detected BY PCR (test code = 00072-3) VIBRIO Not detected Not detected (PARAHAEMOLYTICUS, VULNIFICUS) (test code = 14438-3) GABINO (test code = GABINO) Other viruses, [...] [facility] using the [employer] Gastrointestinal Panel. It is FDA cleared and has been verified and approved by the [facility] Molecular Diagnostics Laboratory for clinical use. This laboratory is CLIA-certified and [employer] (CAP)-accredited to perform high complexity testing. [facility] PCR-ID [id number] 17:47:01 Test Item Value Reference Range Interpretation Comments CAMPYLOBACTER PCR (test Not detected Not detected code = 16387-9) PLESIOMONAS SHIGELLOIDES Not detected Not detected (PCR) (test code = 80427-1) SALMONELLA (PCR) (test Not detected Not detected code = 48925-2) YERSINIA ENTEROCOLITICA Not detected Not detected (PCR) (test code = 29344-1) VIBRIO CHOLERAE (PCR) Not detected Not detected (test code = 41579-9) ENTEROAGGREGATIVE E. Not detected Not detected COLI (EAEC) BY PCR (test code = 74682-5) ENTEROPATHOGENIC E. COLI Not detected Not detected (EPEC) BY PCR (test code = 20256-9) ENTEROTOXIGENIC E. COLI Not detected Not detected (ETEC) LT/ST BY PCR (test code = 72960-7) SHIGA-LIKE Not detected Not detected TOXIN-PRODUCING E. COLI (STEC) STX1/STX2 (test code = 67004-1) E. COLI O157 (PCR) (test code = 26156-5) SHIGELLA/ENTEROINVASIVE Not detected Not detected E. COLI (EIEC) BY PCR (test code = 77938-7) CRYPTOSPORIDIUM (PCR) Not detected Not detected (test code = 77558-6) CYCLOSPORA CAYETANENSIS Not detected Not detected (PCR) (test code = 35754-8) ENTAMOEBA HISTOLYTICA Not detected Not detected (PCR) (test code = 35339-5) GIARDIA LAMBLIA (PCR) Not detected Not detected (test code = 66605-7) ADENOVIRUS F 40/41 (PCR) Not detected Not detected (test code = 52229-6) ASTROVIRUS (PCR) (test Not detected Not detected code = 53036-8) NOROVIRUS GI/GII (PCR) Not detected Not detected (test code = 63928-0) ROTAVIRUS A (PCR) (test Not detected Not detected code = 96436-9) SAPOVIRUS (I, II, IV, V) Not detected Not detected BY PCR (test code = 49252-5) VIBRIO Not detected Not detected (PARAHAEMOLYTICUS, VULNIFICUS) (test code = 49161-5) GABINO (test code = GABINO) Other viruses, [...] [facility] using the [employer] Gastrointestinal Panel. It is FDA cleared and has been verified and approved by the [facility] Molecular Diagnostics Laboratory for clinical use. This laboratory is CLIA-certified and [employer] (CAP)-accredited to perform high complexity testing. [facility] PROFILE BY [id number] 17:47:01 Test Item Value Reference Range Interpretation [...] Not detected BY PCR (test code = 4169696) ENTEROPATHOGENIC E. COLI (EPEC) Not detected Not detected BY PCR (test code = 6007523) ENTEROTOXIGENIC E. COLI (ETEC) Not detected Not detected LT/ST BY PCR (test code = 8803849) SHIGA-LIKE TOXIN-PRODUCING E. Not detected Not detected COLI (STEC) STX1/STX2 (test code = 5046709) E. COLI O157 (PCR) (test code = 4611614) SHIGELLA/ENTEROINVASIVE E. COLI Not detected Not detected (EIEC) BY PCR (test code = 7610966) CRYPTOSPORIDIUM (PCR) (test code Not detected Not detected = 3020156) CYCLOSPORA CAYETANENSIS (PCR) Not detected Not detected (test code = 2652764) ENTAMOEBA HISTOLYTICA (PCR) Not detected Not detected (test code = 5370364) GIARDIA LAMBLIA (PCR) (test code Not detected Not detected = 5068915) ADENOVIRUS F 40/41 (PCR) (test Not detected Not detected code = 0195812) ASTROVIRUS (PCR) (test code = Not detected Not detected 20160702) NOROVIRUS GI/GII (PCR) (test Not detected Not detected code = 6731499) ROTAVIRUS A (PCR) (test code = Not detected Not detected 7220404) SAPOVIRUS (I, II, IV, V) BY PCR Not detected Not detected (test code = 2267264) VIBRIO (PARAHAEMOLYTICUS, Not detected Not detected VULNIFICUS) (test code = 6868804) Other viruses, parasites and bacteria not targeted by this PCR panel cannot be excluded; therefore clinical correlation and follow up of serology, culture results, and other molecular studies is required. The results are not intended to be used as the sole means for clinical diagnosis or patient management decisions. This sample was tested at the [facility] Molecular Diagnostics Laboratory using the [employer] Gastrointestinal Panel. It is FDA cleared and has been verified and approved by the [facility] Molecular Diagnostics Laboratory for clinical use. This laboratory is CLIA-certified and College of[employer] (CAP)-accredited to perform high complexity testing.POCT-GLUCOSE [id number] 16:37:04 Test Item Value Reference Range Interpretation Comments POC-GLUCOSE METER 104 mg/dL 70-110 : TESTED A T [facility] [address] (BEAKER) (test code [address], = 1538) [place] [address] 478: Sheet Manager/Techni cristina ID = [id number] for Dapr emont, Tabitha TROPONIN [id number] 13:49:07 Test Item Value Reference Range Interpretation Comments TROPONIN I (MARQUEZ) (test code = 1.43 ng/mL 0.00-0.15 [facility]) Troponin I (TnI) levels must be interpreted [...] failure, acidosis, acute neurological disease, and persistent tachyarrhythmia.Sheet Manager ID - [id number] Echo W/Doppler(CW/PW/Color)2022-02-08 12:43:16Ejection FractionSLEH ECHO [facility] Echo W/Doppler(CW/PW/Color) 2022-02-08 12:43:16Ejection FractionSLEH ECHO [facility] Echo W/Doppler(CW/PW/Color)2022-02-08 12:43:16Ejection FractionSLEH [facility] [id number] 12:09:27 Test Item Value Reference Range Interpretation Comments POC-GLUCOSE METER 106 mg/dL 70-110 : TESTED A T [facility] [address] (MARQUEZ) (test code [address], = 1538) [place] [address] 478: Sheet Manager/Techni cristina ID = [id number] for Dapr emont, Tabitha Clostridium difficile GDH [id number] 11:58:11 Test Item Value Reference Range Interpretation Comments C. Difficle Toxin Negative Negative (test code = 6468070074) C. Difficile GDH Negative Negative No indicati on of Antigen (test code = Clostri dium 9589969614) difficile infection and n o colonization. Discontinue [...] use. Lab Interpretation Normal (test code = 47649-1) [facility] Center[facility]ostrid[facility] difficile [facility] [id number] 11:58:11 Test Item Value Reference Range Interpretation Comments C. Difficle Toxin Negative Negative (test code = 8386796203) C. Difficile GDH Negative Negative No indicati on of Antigen (test code = Clostri dium 8294229349) difficile infection and n o colonization. Discontinue [...] use. Lab Interpretation Normal (test code = 04033-7) [facility]ostrid[facility] difficile [facility] [id number] 11:58:11 Test Item Value Reference Range Interpretation Comments C. Difficle Toxin Negative Negative (test code = 7062190191) C. Difficile GDH Negative Negative No indicati on of Antigen (test code = Clostri dium 5180890932) difficile infection and n o colonization. Discontinue [...] use. Lab Interpretation Normal (test code = 38776-9) [facility] Center[facility]. DIFFICILE [facility] [id number] 11:58:11 Test Item Value Reference Range Interpretation Comments CDT TOXIN (test code Negative Negative = 2481791983) CDT GDH ANTIGEN (test Negative Negative No ind ication of code = 9668015573) Clostridi um difficile infection and n o [...] to clinical use.Urinalysis w/Microscopic + Reflex to [id number] 11:41:47 Test Item Value Reference Range Interpretation Comments Color, UA (test code = Yellow 5778-6) Clarity, UA (test code = Clear 5767-9) Specific [place], UA 1.015 1.001-1.035 (test code = 5811-5) pH, UA (test code = 5.0 5.0-8.0 5803-2) Protein, UA (test code = 30 mg/dL Negative A 27216-1) Glucose, UA (test code = 250 mg/dL Negative A 365) Ketones, UA (test code = Negative Negative 2514-8) Bilirubin, UA (test code Negative Negative = 56439-4) Blood, UA (test code = Large Negative A 32289-4) Nitrite, UA (test code = Negative Negative 5802-4) Leukocytes, UA (test Trace Negative A code = 5799-2) Urobilinogen, UA (test 0.2 mg/dL 0.2-1.0 code = 77734-8) Bacteria, UA (test code Few = 80443-3) RBC, UA (test code = 5-10 See_Comment [Autom ated message] 799-7) The system [employer] generated this result transmit lópez reference range : /HPF. The refer ence range was not u sed to interpret th is result as normal/abnormal . WBC, UA (test code = 5-10 See_Comment [Autom ated message] 48917-7) The system [employer] generated this result transmit lópez reference range : /HPF. The refer ence range was not u sed to interpret th is result as normal/abnormal . SQUAMOUS EPITHELIAL <5 See_Comment [Automa lópez message] (test code = 40272-2) The sy stem which generated this result transmit lópez reference range : /HPF. The refer ence range was not u sed to interpret th is result as normal/abnormal . Specimen Source (test code = 2795) Lab Interpretation (test Abnormal code = 14819-8) [facility] Center[facility]inalysis w/Microscopic + Reflex to Culture 2022-02-08 11:41:47 Test Item Value Reference Range Interpretation Comments Color, UA (test code = Yellow 5778-6) Clarity, UA (test code = Clear 5767-9) Specific [place], UA 1.015 1.001-1.035 (test code = 5811-5) pH, UA (test code = 5.0 5.0-8.0 5803-2) Protein, UA (test code = 30 mg/dL Negative A 33619-3) Glucose, UA (test code = 250 mg/dL Negative A 365) Ketones, UA (test code = Negative Negative 2514-8) Bilirubin, UA (test code Negative Negative = 97738-1) Blood, UA (test code = Large Negative A 47062-5) Nitrite, UA (test code = Negative Negative 5802-4) Leukocytes, UA (test Trace Negative A code = 5799-2) Urobilinogen, UA (test 0.2 mg/dL 0.2-1.0 code = 89762-9) Bacteria, UA (test code Few = 74117-3) RBC, UA (test code = 5-10 See_Comment [Autom ated message] 799-7) The system [employer] generated this result transmit lópez reference range : /HPF. The refer ence range was not u sed to interpret th is result as normal/abnormal . WBC, UA (test code = 5-10 See_Comment [Autom ated message] 70953-1) The system [employer] generated this result transmit lópez reference range : /HPF. The refer ence range was not u sed to interpret th is result as normal/abnormal . SQUAMOUS EPITHELIAL <5 See_Comment [Automa lópez message] (test code = 52621-1) The sy stem which generated this result transmit lópez reference range : /HPF. The refer ence range was not u sed to interpret th is result as normal/abnormal . Specimen Source (test code = 2795) Lab Interpretation (test Abnormal code = 18485-0) [facility]/Microscopic + Reflex to Culture 2022-02-08 11:41:47 Test Item Value Reference Range Interpretation Comments Color, UA (test code = Yellow 5778-6) Clarity, UA (test code = Clear 5767-9) Specific [place], UA 1.015 1.001-1.035 (test code = 5811-5) pH, UA (test code = 5.0 5.0-8.0 5803-2) Protein, UA (test code = 30 mg/dL Negative A 35539-0) Glucose, UA (test code = 250 mg/dL Negative A 365) Ketones, UA (test code = Negative Negative 2514-8) Bilirubin, UA (test code Negative Negative = 27239-7) Blood, UA (test code = Large Negative A 10379-1) Nitrite, UA (test code = Negative Negative 5802-4) Leukocytes, UA (test Trace Negative A code = 5799-2) Urobilinogen, UA (test 0.2 mg/dL 0.2-1.0 code = 26189-2) Bacteria, UA (test code Few = 62476-7) RBC, UA (test code = 5-10 See_Comment [Autom ated message] 799-7) The system [employer] generated this result transmit lópez reference range : /HPF. The refer ence range was not u sed to interpret th is result as normal/abnormal . WBC, UA (test code = 5-10 See_Comment [Autom ated message] 44581-1) The system [employer] generated this result transmit lópez reference range : /HPF. The refer ence range was not u sed to interpret th is result as normal/abnormal . SQUAMOUS EPITHELIAL <5 See_Comment [Automa lópez message] (test code = 72521-3) The sy stem which generated this result transmit lópez reference range : /HPF. The refer ence range was not u sed to interpret th is result as normal/abnormal . Specimen Source (test code = 2795) Lab Interpretation (test Abnormal code = 14920-8) [facility] W/ REFLEX URINE [id number] 11:41:47 Test Item Value Reference Range Interpretation [...] = 1663) SOURCE(BEAKER) (test code = 2795) [id number] 06:53:46 Test Item Value Reference Range Interpretation Comments PROCALCITONIN (BEAKER) (test code = > ng/mL <0.05 3036) SEPSIS RISK (ng/mL)Low: 0.05-0.50Intermediate: 0.51-2.00High: >=2.01RAD, CHEST, 1 VIEW, NON [id number] 06:35:00Reason for exam:->Chest pain, SOBShould this be performed at the bedside?->Yes [facility] : 1970 Sex: MFINAL REPORT [...] Manuel Starks MDReport Verified Date/Time: 02/08/2022 06:35:11 [id number] 06:25:41 Test Item Value Reference Range Interpretation Comments FERRITIN (BEAKER) (test code = 174.90 ng/mL 22.00-322.00 361) Sheet Manager ID - LITOCOMPREHENSIVE METABOLIC [id number] 06:24:00 Test Item Value Reference Range Interpretation [...] S NOT APPLICABLE FOR DIALYSIS PATIEN TS. Sheet Manager ID - LITOOperator ID - LITOOperator ID - LITOOperator ID - LITOOperator ID - LITOOperator ID - LITOOperator ID - LITOOperator ID - LITOOperator ID - LITOOperator ID - LITOOperator ID - LITOOperator ID - LITOOperator ID - LITOOperator ID - LITOOperator ID - LITOOperator ID - LITOLIPID [id number] 06:23:35 Test Item Value Reference Range Interpretation [...] Borderline 130-159 High 160-189 Very High >=190 Sheet Manager ID - LITOOperatorID - LITOOperator ID - [id number] 06:23:22 Test Item Value Reference Range Interpretation Comments MAGNESIUM (BEAKER) (test code = 1.7 mg/dL 1.5-3.0 627) Sheet Manager ID - LITOOperator ID - LITOOperator ID - LITOOperator ID - LITOIRON, TIBC, % SAT. (WITHOUT FERRITIN)2022-02-08 06:22:39 Test Item Value Reference Range Interpretation Comments IRON (BEAKER) (test code = 547) 12.0 ug/dL 45.0-170.0 L TOTAL IRON BINDING CAPACITY 206 ug/dL 250-550 L (BEAKER) (test code = 769) IRON % SATURATION (2) (BEAKER) 6 % 20-55 L (test code = 2590) Sheet Manager ID - LITOOperator ID - [id number] 06:19:55 Test Item Value Reference Range Interpretation Comments PHOSPHORUS (BEAKER) (test code = 2.9 mg/dL 2.5-4.5 604) Sheet Manager ID - LITOCBC W/PLT COUNT & AUTO [id number] 06:17:13 Test Item Value Reference Range Interpretation [...] 0-100 H (BEAKER) (test code = 700) Sheet Manager ID - LITOTROPONIN [id number] 06:14:48 Test Item Value Reference Range Interpretation [...] failure, acidosis, acute neurological disease, and persistent tachyarrhythmia.Sheet Manager ID - LITOHEMOGLOBIN A1C 2022-02-08 06:08:30 Test Item Value Reference Range Interpretation Comments HEMOGLOBIN A1C (BEAKER) (test code = 12.6 % 4.3-6.1 H 368) Sheet Manager ID - LITOLACTIC ACID, [id number] 06:04:47 Test Item Value Reference Range Interpretation Comments LACTATE BLOOD 1.79 mmol/L See_Comment [Automated me ssage] VENOUS (2) (BEAKER) The syst em which (test code = 2872) generated this result transmitted ref erence range: 0.50-<2. 00. The reference range was not used to interpr et this result as normal/abnormal . Sheet Manager ID - LITOOperator ID - LITOOperator ID - LITOOperator ID - DOUGLAS PROTHROMBIN TIME/[id number] 06:01:25 Test Item Value Reference Range Interpretation Comments PROTIME (BEAKER) 13.4 seconds 9.3-12.0 H Final Infor mation [...] 2.5-3.5 for patients with mechanical heart valves.POCT-GLUCOSE [id number] 05:41:10 Test Item Value Reference Range Interpretation Comments POC-GLUCOSE METER 290 mg/dL 70-110 H : TESTED A T [facility] [address] (BEAKER) (test code [facility] [address], = 1538) [facility] [place] [address]: Sheet Manager/Techni cristina ID = [id number] for Danii Joseph POCT-GLUCOSE [id number] 12:52:00 Test Item Value Reference Range Interpretation Comments POC-GLUCOSE METER 286 mg/dL 70-110 H : TESTED A T [facility] (BEAKER) (test code [address] = 1538) [place] [address] 0: Sheet Manager/Techni cristina ID = [id number] for SARA DICKENS AXEL
[2022-12-11 15:54] LABS: Absolute Lymphocytes (CBC) 0.3 K/uL (0.7-4.9); Hematocrit 29.9 % (39.6-49.0); Lymphocytes % 1.9 % (15.3-44.8); MCV 88.2 fL (80-100); MPV 8.2 fL (7.6-11.3); RBC Red Blood Cell Count 3.39 M/uL (4.33-5.43)
[2022-12-11 15:56] LABS: Protime INR 1.35
[2022-12-11 16:22] LABS: Albumin 3.1 g/dL (3.4-5.0); Bilirubin Direct 0.2 mg/dL (0-0.2); Bilirubin Total 0.5 mg/dL (0.2-1.0); Potassium 3.1 mmol/L (3.5-5.1); Protein, Total 7.1 g/dL (6.4-8.2)
[2022-12-11] MEDS ORDERED: NA CHLORIDE 0.9% 1,000 ML ONE (16:29)
[2022-12-11] MEDS ORDERED: NA CHLORIDE 0.9% 250 ML ONE ×3 (16:29→18:10)
--- NOTE | 2022-12-11 16:31 | RAD REPORT ---
EXAM DESCRIPTION: RADChest Single View12/11/2022 4:11 pm CLINICAL HISTORY: vomiting. Nausea, and diarrhea. Cough. Stage IV colon cancer. COMPARISON: Chest Single View dated 11/01/2022; Chest Single View dated 09/28/2022; Chest Single View d ated 02/07/2022 TECHNIQUE: Portable AP view of the chest. FINDINGS: Multiple metallic monitoring devices obscure portions of the lungs. Allowing for this limi tation, there is new hazy medial right basilar airspace opacity. No pneumothorax or effusion. The car diomediastinal contours are unremarkable. IMPRESSION: New hazy medial right basilar airspace opacity, concerning for a developing pneumonia.
[2022-12-11 16:35] LABS: SARS-COV-2 RT PCR NEGATIVE (NEGATIVE)
[2022-12-11] MEDS ORDERED: MAGNESIUM SULFATE 1 gm IVPB 1 GM/100 ML BAG IV ONE (16:38)
[2022-12-11] MEDS ORDERED: NA CHLORIDE 0.9% 0 ML ONE (17:19)
[2022-12-11] MEDS ORDERED: AZITHROMYCIN 500 MG INJ IVPB ONE (17:19)
[2022-12-11] MEDS ORDERED: CEFTRIAXONE 1000 MG/VIAL ONE (17:19)
--- NOTE | 2022-12-11 18:00 | RAD REPORT ---
EXAM DESCRIPTION: CT - Chest For Pe Angio - 12/11/2022 5:21 pm CLINICAL HISTORY: Cough. Nausea vomiting and diarrhea. V-tach. Shortness of breath COMPARISON: Chest radiograph of earlier the same day. TECHNIQUE: Dynamically enhanced next images of the chest were obtained during administration of 84 m L Isovue 370 IV contrast. Coronal and oblique reconstruction images were generated and reviewed. Exam utilizes a protocol for optimal evaluation of pulmonary arterial tree. All CT scans are performed using dose optimization technique as appropriate and may include automated exposure control or mA/KV adjustment according to patient size. FINDINGS: Pulmonary arteries are normal. No emboli or other suspicious finding. No acute or signific ant aortic findings. Patchy consolidative and ground-glass opacities most confluent in the right lower lobe dependently, w ith less pronounced involvement in the superior segment left lower lobe and central right upper lobe. Minimal involvement in the right mid lobe and left upper lobe. Trace layering right pleural effusion . No pneumothorax. No abnormal mediastinal or hilar masses or lymphadenopathy seen. No chest wall mass or abnormal axill iary lymphadenopathy. Ascending aorta is normal in caliber. Incidentally noted trace pericardial effusion. CT abdomen/ pelvis reported separately. IMPRESSION: No acute central pulmonary embolus. Multifocal airspace opacity as above, concerning for multifocal pneumonia. CT abdomen/pelvis reported separately. Results were communicated to [employer] PAC on 12/11/2022 at 5:54 p.m..
--- NOTE | 2022-12-11 18:01 | ER ---
Nurse's Notes [facility] Name: Royce Farr Age: 52 yrs Sex: Male : 1970 Arrival Date: 12/11/2022 Time: 15:20 Bed 7 Private MD: Diagnosis: Severe sepsis with septic shock;Pneumonia due to other specified infectious organisms;Other acute appendicitis-with periappendiceal abscess Presentation: 12/11 15:22 Chief complaint: EMS states: Toned out because his life vest went off for runs of jl7 Vtach, 60 systolic, diaphoretic, vomiting, bgl 331 on EMS arrival, gave 1 Liter NS bolus and 4 zofran in route. 90 Systolic prior to arrival to ED. Pt reports N/V/D and cough. Coronavirus screen: At this time, the client does not indicate any symptoms associated with coronavirus-19. Ebola Screen: No symptoms or risks identified at this time. Initial Sepsis Screen: Does the patient meet any 2 criteria? RR > 20 per min. HR > 90 bpm. Yes Does the patient have a suspected source of infection? Yes: Productive cough/pneumonia. Risk Assessment: Do you want to hurt yourself or someone else? Patient reports no desire to harm self or others. Onset of symptoms is unknown. Care prior to arrival: Medication(s) given: Normal saline infusion, 1000 mL, zofran 4 mg, IV initiated. 18 GA, in the right forearm, Glucose check: 331. 15:22 Method Of Arrival: EMS: [facility] 15:22 Acuity: SANDRO 2 jl7 Triage Assessment: 15:29 General: Appears in no apparent distress. uncomfortable, slender, unkempt, Behavior is jl7 calm, cooperative, appropriate for age. Pain: Denies pain. Neuro: Level of Consciousness is awake, alert, obeys commands, Oriented to person, place, time, situation. Cardiovascular: Patient's skin is warm and dry. Respiratory: Airway is patent Respiratory effort is even, unlabored, Respiratory pattern is symmetrical, tachypnea. GI: Reports diarrhea, nausea, vomiting. Derm: Skin is dry, Skin is pale, Skin temperature is warm. Historical: - Allergies: 15:29 No Known Allergies; jl7 - Home Meds: 15:29 Aspirin Oral [Active]; glaucoma drop [Active]; Lasix Oral [Active]; metformin [Active]; jl7 16:39 digoxin 125 mcg (0.125 mg) oral tab 1 tab once daily for chronic heart failure cp [Active]; insulin glargine 100 unit/mL (3 mL) Sub-Q inpn 8 units daily [Active]; lisinopril 5 mg Oral tab 1 tab once daily [Active]; magnesium oxide 400 mg magnesium Oral tab 400 mg twice a day [Active]; mexiletine 150 mg Oral cap 1 caps every 8 hours [Active]; spironolactone 25 mg Oral tab 0.5 tab once daily [Active]; torsemide 20 mg oral tab 2 tabs twice a day [Active]; metoprolol succinate 25 mg oral CSpX 0.5 tab once daily [Active]; pantoprazole 40 mg oral TbEC 1 tab once daily [Active]; - PMHx: 15:29 Congestive heart failure; diabetes mellitus; Hypertensive disorder; Myocardial jl7 infarction; Stage 4 colon cancer (September 2022); - Immunization history:: Client reports receiving the 2nd dose of the Covid vaccine. - Social history:: Smoking status: Patient denies any tobacco usage or history of. Screenin:00 [facility] ED Fall Risk Assessment (Adult) History of falling in the last 3 months, jl7 including since admission No falls in past 3 months (0 pts) Confusion or Disorientation No (0 pts) Intoxicated or Sedated No (0 pts) Impaired Gait Yes (1 pt) Mobility Assist Device Used No (0 pt) Altered Elimination No (0 pt) Score/Fall Risk Level 0 - 2 = Low Risk Oriented to surroundings, Maintained a safe environment. Abuse screen: Denies threats or abuse. Denies injuries from another. Nutritional screening: No deficits noted. Tuberculosis screening: No symptoms or risk factors identified. Assessment: 15:20 General: Appears distressed, uncomfortable, Behavior is calm, cooperative. Neuro: Level ss of Consciousness is awake, lethargic. Cardiovascular: Capillary refill is > 3 seconds is sluggish in bilateral fingers. Respiratory: Airway is patent Respiratory effort is even, unlabored, Respiratory pattern is regular, symmetrical. GI: Stools are reported to be loose. : No signs and/or symptoms were reported regarding the genitourinary system. Derm: Skin is dry, Skin is pale. Musculoskeletal: Range of motion:. 17:06 Reassessment: Pt to CT via stretcher. jl7 17:08 Reassessment: PT cleaned of bowel incontinence. Tolerated well. To CT now VIA stretcher.ss 17:59 Reassessment: order by ARACELIS Castro to not administer initial abx ordered and that he ss will order Vanc and Zosyn. 19:02 Reassessment: Report given to NEY Randle at ICU [facility]. ss 20:16 Reassessment: Patient and/or family updated on plan of care and expected duration. Pain vc1 level reassessed. Patient is alert, oriented x 3, equal unlabored respirations, skin warm/dry/pink. Patient states feeling better. Patient states symptoms have improved. Vital Signs: 15:22 BP 95 / 63; Pulse 118; Resp 21; Temp 98.7; Pulse Ox 100% on R/A; Weight 45.36 kg; jl7 Height 5 ft. 5 in. (165.10 cm); Pain 0/10; 16:00 BP 85 / 59; Pulse 113; Resp 15; Pulse Ox 100% ; jl7 17:30 BP 96 / 66; Pulse 108; Resp 21; Pulse Ox 100% ; jl7 18:00 BP 95 / 64; Pulse 100; Resp 14; Pulse Ox 100% ; jl7 18:30 BP 89 / 62; Pulse 96; Resp 20; Pulse Ox 97% on 4 lpm NC; ss 18:44 BP 85 / 60; Pulse 94; ss 19:00 BP 88 / 66; Pulse 101; Resp 19; Pulse Ox 97% on 4 lpm NC; ss 19:30 BP 91 / 64; Pulse 96; Resp 21; Pulse Ox 100% ; jl7 19:45 BP 109 / 80; Pulse 95; vc1 19:45 BP 109 / 80; Pulse 95; Resp 18; Pulse Ox 100% ; jl7 20:13 BP 93 / 67; Pulse 99; Resp 19; Pulse Ox 100% ; vc1 15:22 Body Mass Index 16.64 (45.36 kg, 165.10 cm) jl7 ED Course: 15:20 Patient arrived in ED. jl7 15:20 Caio Shrestha PA is PHCP. cp 15:20 Kings Luna MD is Attending Physician. cp 15:29 Triage completed. jl7 15:29 Arm band placed on right wrist. jl7 15:30 Patient has correct armband on for positive identification. Placed in gown. Bed in low jl7 position. Call light in reach. Side rails up X2. Client placed on continuous cardiac and pulse oximetry monitoring. NIBP monitoring applied. 15:42 EKG done, by ED staff, reviewed by Caio HSU. em1 15:45 Inserted saline lock: 20 gauge in right antecubital area, using aseptic technique. ss Blood collected. 15:45 Maintain EMS IV. Gauge \T\ site: 18 gauge in R wrist. ss 15:50 COVID-19/FLU A+B Sent. em1 15:50 Flu and/or RSV swab sent to lab. em1 16:00 Warm blanket given. jl7 17:05 Jacki Redman RN is Primary Nurse. jl7 17:05 Cleaned of incontinence. jl7 17:47 initiated transfer to [facility], pt denied due to no icu beds available per rita. bd 18:14 rita from [facility] called back, a icu bed is avaliable, she will page pts drs. bd 19:17 Primary Nurse role handed off by Jacki Redman, RN mw2 20:16 No provider procedures requiring assistance completed. Patient transferred, IV remains vc1 in place. 20:22 Erin Richardson RN is Primary Nurse. vc1 Administered Medications: 16:33 Drug: NS 0.9% (30 ml/kg) 30 ml/kg Route: IV; Rate: bolus; Site: right forearm; ss 17:30 Follow up: Response: No adverse reaction; IV Status: Completed infusion; IV Intake: jl7 1360ml ; Amount infused includes fluids administered by EMS DIGITAL STRATEGY DIRECTOR 16:38 CANCELLED (Physician Discretion): Zithromax (azithromycin) 500 mg IVPB once over 1 hrs; cp mix in 250 mL NS 16:42 Drug: Magnesium Sulfate 1 grams Route: IVPB; Infused Over: 1 hrs; Site: right ss antecubital; 17:40 Follow up: IV Status: Completed infusion ss 17:58 Not Given (Physician Discretion): Rocephin (cefTRIAXone) 1 grams IV at calculated rate cp once; Given slow IV push per pharmacy instructions 17:58 Not Given (Physician Discretion): Zithromax (azithromycin) 500 mg IVPB once over 1 hrs; cp mix in 250 mL NS 18:26 Drug: vancoMYCIN 1 grams Route: IVPB; Infused Over: 2 hrs; Site: right forearm; jl7 20:15 Follow up: IV Status: Completed infusion vc1 18:26 Drug: Zosyn (piperacillin-tazobactam) 3.375 grams Route: IVPB; Infused Over: 60 mins; jl7 Site: right antecubital; 20:15 Follow up: Response: No adverse reaction vc1 20:15 Follow up: IV Status: Infusion continued upon transfer vc1 19:42 Drug: Levophed (norepinephrine) 0.1 mcg/kg/min Route: IV; Rate: calculated rate; Site: vc1 right femoral; 19:45 Follow up: BP 109 / 80; Pulse 95 bpm; IV Status: infusion paused; order to change vc1 target pressure. 20:13 Follow up: BP 93 / 67; Pulse 99 bpm; Resp 19 bpm; Pulse Ox 100% ; IV Status: Infusion vc1 continued upon admission; Infusion continued upon admission; Levophed still stopped bag sent with EMS. 19:55 Not Given (Physician Discretion): Levophed (norepinephrine) 0.1 mcg/kg/min IV at cp calculated rate See Administration Instructions; (Standard concentration 4 mg / 250 mL D5W); Recommended max rate 3 mcg/kg/min; Titrate 0.05 mcg/kg/min as often as every 5 minutes to achieve goal (see titration policy); Goal parameter MAP greater than 65 mmHg. 20:00 Drug: Potassium Effervescent Tablet 50 mEq Route: PO; jl7 20:15 Follow up: Response: No adverse reaction vc1 Medication: 18:29 VIS not applicable for this client. jl7 Intake: 17:30 IV: 1360ml; Total: 1360ml. jl7 Outcome: 18:01 ER care complete, transfer ordered by . cp 20:16 Transferred by ground EMS to [facility], Transfer form completed. X-rays vc1 sent w/ patient. 20:16 Condition: stable 20:23 Patient left the ED. vc1 Signatures: Monica Walker Eric em1 Adriane Mon RN RN ss Caio Shrestha PA PA cp Leal, Jahala, RN RN jl7 Lucinda Pacheco mw2 Erin Richardson RN RN vc1 Corrections: (The following items were deleted from the chart) 16:47 15:29 Home Meds: carvedilol Oral; [facility] cp 16:47 15:29 Home Meds: Entresto Oral; [facility] cp 16:47 15:29 Home Meds: Plavix Oral; [facility] cp 16:47 16:39 PSHx: cardiac stent x 2; cp cp 19:54 18:30 BP 89 / 62; Pulse 96bpm; Resp 20bpm; Pulse Ox 97% RA; ss ss
--- NOTE | 2022-12-11 18:01 | EDPHYS ---
Physician Documentation [facility] Name: Royce Farr Age: 52 yrs Sex: Male : 1970 Arrival Date: 12/11/2022 Time: 15:20 Bed 7 Private MD: ED Physician Kings Luna HPI: 12/11 15:23 This 52 yrs old Male presents to ER via EMS with complaints of life vest went cp off. 15:23 The patient presents to the emergency department with vomiting, that is intermittent, cp diarrhea, that is intermittent. Onset: The symptoms/episode began/occurred today. 15:23 The patient or guardian reports cough, that is intermittent. Associated signs and cp symptoms: Pertinent negatives: abdominal pain, constipation, fever, GI bleeding, chest pain. Historical: - Allergies: 15:29 No Known Allergies; jl7 - Home Meds: 15:29 Aspirin Oral [Active]; glaucoma drop [Active]; Lasix Oral [Active]; metformin [Active]; jl7 16:39 digoxin 125 mcg (0.125 mg) oral tab 1 tab once daily for chronic heart failure cp [Active]; insulin glargine 100 unit/mL (3 mL) Sub-Q inpn 8 units daily [Active]; lisinopril 5 mg Oral tab 1 tab once daily [Active]; magnesium oxide 400 mg magnesium Oral tab 400 mg twice a day [Active]; mexiletine 150 mg Oral cap 1 caps every 8 hours [Active]; spironolactone 25 mg Oral tab 0.5 tab once daily [Active]; torsemide 20 mg oral tab 2 tabs twice a day [Active]; metoprolol succinate 25 mg oral CSpX 0.5 tab once daily [Active]; pantoprazole 40 mg oral TbEC 1 tab once daily [Active]; - PMHx: 15:29 Congestive heart failure; diabetes mellitus; Hypertensive disorder; Myocardial jl7 infarction; Stage 4 colon cancer (September 2022); - Immunization history:: Client reports receiving the 2nd dose of the Covid vaccine. - Social history:: Smoking status: Patient denies any tobacco usage or history of. ROS: 15:25 Constitutional: Negative for body aches, chills, fever. cp 15:25 Eyes: Negative for injury, pain, redness, and discharge. cp 15:25 Cardiovascular: Negative for chest pain, edema. 15:25 Respiratory: Positive for cough. 15:25 Abdomen/GI: Positive for nausea, vomiting, and diarrhea. Exam: 15:30 Constitutional: The patient appears in no acute distress, alert, awake, cp non-diaphoretic, well developed, frail, obviously ill. 15:30 Head/Face: Normocephalic, atraumatic. cp 15:30 Eyes: Periorbital structures: appear normal, Pupils: equal, round, and reactive to light and accomodation, Extraocular movements: intact throughout, Conjunctiva: normal, no exudate, no injection, Sclera: no appreciated abnormality, Lids and lashes: appear normal, bilaterally. 15:30 ENT: External ear(s): are unremarkable, Nose: is normal, Mouth: Lips: moist, Oral mucosa: pink and intact, moist, Posterior pharynx: is normal, airway is patent, no erythema, no exudate. 15:30 Neck: ROM/movement: is normal, is supple, without pain, no range of motions limitations, no meningismus. 15:30 Chest/axilla: Inspection: life vest in place, Palpation: crepitus, is not appreciated, tenderness, is not appreciated. 15:30 Cardiovascular: Rate: tachycardic, Rhythm: regular, Edema: is not appreciated, JVD: is not appreciated. 15:30 Respiratory: the patient does not display signs of respiratory distress, Respirations: labored breathing, is not present, accessory muscle usage, is absent, intercostal retractions, are absent, Breath sounds: bronchial sounds, that are mild, are heard diffusely, decreased breath sounds, are not appreciated, stridor, is not appreciated, wheezing: is not appreciated. 15:30 Abdomen/GI: Inspection: abdomen appears normal, Bowel sounds: active, all quadrants, Palpation: abdomen is soft and non-tender, in all quadrants. 15:30 Back: pain, is absent, ROM is normal. 15:37 ECG was reviewed by the Attending Physician. cp Vital Signs: 15:22 BP 95 / 63; Pulse 118; Resp 21; Temp 98.7; Pulse Ox 100% on R/A; Weight 45.36 kg; jl7 Height 5 ft. 5 in. (165.10 cm); Pain 0/10; 16:00 BP 85 / 59; Pulse 113; Resp 15; Pulse Ox 100% ; jl7 17:30 BP 96 / 66; Pulse 108; Resp 21; Pulse Ox 100% ; jl7 18:00 BP 95 / 64; Pulse 100; Resp 14; Pulse Ox 100% ; jl7 18:30 BP 89 / 62; Pulse 96; Resp 20; Pulse Ox 97% on 4 lpm NC; ss 18:44 BP 85 / 60; Pulse 94; ss 19:00 BP 88 / 66; Pulse 101; Resp 19; Pulse Ox 97% on 4 lpm NC; ss 19:30 BP 91 / 64; Pulse 96; Resp 21; Pulse Ox 100% ; jl7 19:45 BP 109 / 80; Pulse 95; vc1 19:45 BP 109 / 80; Pulse 95; Resp 18; Pulse Ox 100% ; jl7 20:13 BP 93 / 67; Pulse 99; Resp 19; Pulse Ox 100% ; vc1 15:22 Body Mass Index 16.64 (45.36 kg, 165.10 cm) 7 MDM: 15:22 Patient medically screened. cp 17:15 ED course: patient qualifies for severe sepsis with shock. A) source of infection: cp pneumonia. B) HR >90, RR >20. C) at least 2 observed systolic BP <90. 17:43 Post IV fluid administration reassessment for Sepsis: Client prescribed 30 mL/kg IVF. cp Focused Assessment performed: December 11, 2022 at 17:44 Heart: Regular rate/rhythm noted. Tachycardia noted. blood pressure 96/66 Lungs: mild bronchial sounds bilaterally Current vital signs reviewed: Yes. Neuro: nochange. 17:45 Data reviewed: vital signs, nurses notes, lab test result(s), EKG, radiologic studies, cp CT scan, plain films. 17:45 Consideration of Admission/Observation transfer to [facility] for continuity of care for cp management of life vest. I considered the following discharge prescriptions or medication management in the emergency department Medications were administered in the Emergency Department. See MAR. Historians other than the Patient: Parent: mother and EMS assisted with HPI. 12/11 15:22 Order name: Basic Metabolic Panel cp 12/11 15:22 Order name: CBC with Diff cp 12/11 15:22 Order name: LFT's cp 12/11 15:22 Order name: Magnesium cp 12/11 15:22 Order name: NT PRO-BNP cp 12/11 15:22 Order name: PT-INR cp 12/11 15:22 Order name: Troponin HS cp 12/11 15:22 Order name: Lipase cp 12/11 15:22 Order name: COVID-19/FLU A+B cp 12/11 15:23 Order name: Lactate w/ 2H reflex if indic. cp 12/11 15:23 Order name: Urine Microscopic Only cp 12/11 15:23 Order name: Blood Culture Adult (2) cp 12/11 15:23 Order name: Procalcitonin cp 12/11 15:56 Order name: CBC with Automated Diff; Complete Time: 18:12 EDMS 12/11 16:12 Interpretation: Normal except: WBC 16.50; RBC 3.39; HGB 10.2; HCT 29.9; CAMILLE% 94.6; LYM% cp 1.9; MN% 3.1; NEUT A 15.6; LYMA 0.3. 02 15:22 Order name: XRAY Chest (1 view) cp 12/11 15:56 Order name: Protime (+INR); Complete Time: 16:12 EDMS 12/11 16:13 Interpretation: Normal except: PT 14.8. cp 12/11 16:26 Order name: Basic Metabolic Panel; Complete Time: 16:27 EDMS 12/11 16:27 Interpretation: Normal except: K 3.1; CL 108; CO2 20; GLUC 221; BUN 40; CRE 1.35; GFR cp 62. 12/11 16:26 Order name: Liver (Hepatic) Function; Complete Time: 16:27 EDMS 12/11 16:26 Order name: Troponin High Sensitivity; Complete Time: 16:27 EDMS 12/11 16:28 Interpretation: [place]: [place] [address]. cp 12/11 16:26 Order name: NT PRO-BNP; Complete Time: 16:27 EDMS 12/11 16:26 Order name: Magnesium; Complete Time: 16:27 EDMS 12/11 16:26 Order name: Lipase; Complete Time: 16:27 EDMS 12/11 16:27 Order name: Lactate w/ 2H reflex if indic.; Complete Time: 16:32 EDMS 12/11 16:29 Order name: CT Chest For PE Angio cp 12/11 16:29 Order name: CT Abd/Pelvis - IV Contrast Only cp 12/11 16:32 Order name: RAD; Complete Time: 16:32 EDMS 12/11 16:33 Interpretation: Report reviewed. 12/11 16:35 Order name: COVID-19/FLU A+B; Complete Time: 17:41 EDMS 12/11 17:41 Interpretation: Reviewed. 12/11 16:50 Order name: Procalcitonin; Complete Time: 17:41 EDMS 12/11 18:01 Order name: CT; Complete Time: 18:12 EDMS 12/11 18:02 Order name: CBC Smear Scan; Complete Time: 18:12 EDMS 12/11 15:22 Order name: EKG; Complete Time: 15:23 cp 12/11 15:22 Order name: Cardiac monitoring; Complete Time: 16:33 cp 12/11 15:22 Order name: EKG - Nurse/Tech; Complete Time: 15:42 cp 12/11 15:22 Order name: IV Saline Lock; Complete Time: 16:33 12/11 15:22 Order name: Labs collected and sent; Complete Time: 16:33 12/11 15:22 Order name: O2 Per Protocol; Complete Time: 16:33 12/11 15:22 Order name: O2 Sat Monitoring; Complete Time: 16:33 12/11 18:02 Order name: CT; Complete Time: 18:12 EDMS EC:37 Rate is 115 beats/min. Rhythm is regular. DC interval is normal. QRS interval is cp normal. QT interval is normal. T waves are Inverted in lead aVL. Interpreted by me. Reviewed by me. Administered Medications: 16:33 Drug: NS 0.9% (30 ml/kg) 30 ml/kg Route: IV; Rate: bolus; Site: right forearm; ss 17:30 Follow up: Response: No adverse reaction; IV Status: Completed infusion; IV Intake: jl7 1360ml ; Amount infused includes fluids administered by EMS LOCOMOTIVE DRIVER 16:38 CANCELLED (Physician Discretion): Zithromax (azithromycin) 500 mg IVPB once over 1 hrs; cp mix in 250 mL NS 16:42 Drug: Magnesium Sulfate 1 grams Route: IVPB; Infused Over: 1 hrs; Site: right ss antecubital; 17:40 Follow up: IV Status: Completed infusion ss 17:58 Not Given (Physician Discretion): Rocephin (cefTRIAXone) 1 grams IV at calculated rate cp once; Given slow IV push per pharmacy instructions 17:58 Not Given (Physician Discretion): Zithromax (azithromycin) 500 mg IVPB once over 1 hrs; cp mix in 250 mL NS 18:26 Drug: vancoMYCIN 1 grams Route: IVPB; Infused Over: 2 hrs; Site: right forearm; jl7 20:15 Follow up: IV Status: Completed infusion vc1 18:26 Drug: Zosyn (piperacillin-tazobactam) 3.375 grams Route: IVPB; Infused Over: 60 mins; jl7 Site: right antecubital; 20:15 Follow up: Response: No adverse reaction vc1 20:15 Follow up: IV Status: Infusion continued upon transfer vc1 19:42 Drug: Levophed (norepinephrine) 0.1 mcg/kg/min Route: IV; Rate: calculated rate; Site: vc1 right femoral; 19:45 Follow up: BP 109 / 80; Pulse 95 bpm; IV Status: infusion paused; order to change vc1 target pressure. 20:13 Follow up: BP 93 / 67; Pulse 99 bpm; Resp 19 bpm; Pulse Ox 100% ; IV Status: Infusion vc1 continued upon admission; Infusion continued upon admission; Levophed still stopped bag sent with EMS. 19:55 Not Given (Physician Discretion): Levophed (norepinephrine) 0.1 mcg/kg/min IV at cp calculated rate See Administration Instructions; (Standard concentration 4 mg / 250 mL D5W); Recommended max rate 3 mcg/kg/min; Titrate 0.05 mcg/kg/min as often as every 5 minutes to achieve goal (see titration policy); Goal parameter MAP greater than 65 mmHg. 20:00 Drug: Potassium Effervescent Tablet 50 mEq Route: PO; jl7 20:15 Follow up: Response: No adverse reaction vc1 Disposition: 17:41 Co-signature as Attending Physician, Kings Luna MD I reviewed the patient's care rn provided by Advanced Practice Provider \T\ agree w/ the diagnosis \T\ care plan. I personally saw the pt \T\ performed a substantive portion of the visit, incldng all aspects of the (History/Exam/Medical Decision Making). Pt with severe sepsis and septic shock, fluid responsive to 30ml/kg bolus, is only 45 kg, abx ordered after blood cultures and lactate. Sepsis reevaluation complete. . 17:42 Critical Care:. rn Disposition Summary: 12/11/22 18:01 Transfer Ordered Transfer Location: [facility] cp Reason: Higher level of care cp Condition: Serious cp Problem: new cp Symptoms: have improved cp Accepting Physician: DR Sinha(12/11/22 20:23) vc1 Diagnosis - Severe sepsis with septic shock cp - Pneumonia due to other specified infectious organisms cp - Other acute appendicitis - with periappendiceal abscess cp Forms: - Medication Reconciliation Form cp - SBAR form cp Critical care time excluding procedures: 17:42 Critical care time: Bedside Care: 35 minutes, Consultation: 5 minutes. Total time: 40 rn minutes Signatures: Dispatcher [employer] EDMS Kings Luna MD [facility] RN RN ss Page, Corey, PA PA cp Leal, Jahala, RN RN jl7 Erin Richardson RN RN vc1 Corrections: (The following items were deleted from the chart) 16:38 16:35 Zithromax (azithromycin) 500 mg IVPB once over 1 hrs; mix in 250 mL NS ordered. cpcp 16:47 15:29 Home Meds: carvedilol Oral; jl7 cp 16:47 15:29 Home Meds: Entresto Oral; jl7 cp 16:47 15:29 Home Meds: Plavix Oral; jl7 cp 16:47 16:39 PSHx: cardiac stent x 2; cp cp 18:44 18:01 Doctor cp cp 18:46 18:44 DR Sinha cp cp 20:23 18:46 DR Sinha cp vc1
--- NOTE | 2022-12-11 18:01 | RAD REPORT ---
EXAM DESCRIPTION: CT - Abdomen Pelvis W Contrast - 12/11/2022 5:21 pm CLINICAL HISTORY: Vomiting/diarrhea Abdominal pain, vomiting and diarrhea. COMPARISON: None. TECHNIQUE: Biphasic, helical CT imaging of the abdomen and pelvis was performed following oral and 1 00 ml non-ionic IV contrast. All CT scans are performed using dose optimization technique as appropriate and may include automated exposure control or mA/KV adjustment according to patient size. FINDINGS: Please refer to separately reported chest CT for lung findings. The liver, pancreas, adrenal glands, and kidneys are unremarkable. Gallbladder and biliary tree are a lso without suspicious finding. Small layering hyperdense gallstones. Hyperdensity along the anti dependent wall near a fold in the f undus could represent gallbladder wall calcifications. Segmental wall thickening and hyperenhancement involving the cecum and proximal ascending colon. Pron ounced adjacent fat stranding. The appendix is not visualized. There is a lobulated collection with t hick enhancing margins adjacent to the cecal bulb, extending towards the pelvis, measuring 4.5 x 3.4 centimeter in greatest axial dimensions and 5.1 x 3.1 centimeter in greatest coronal dimensions. Shor t-segment fecalization within and adjacent small bowel lobe more inferiorly. Mild fluid distention within small-bowel loops within the lower and central abdomen could reflect a m ild degree of ileus. No evidence of free air or pneumatosis. No suspicious lymphadenopathy. No hernia. Mild wall thickening along the dome of the bladder on the right, adjacent to the region of mesenteric fat stranding, likely reactive. The urinary bladder is otherwise without significant finding. Right pelvic calcified 3.1 x 2.6 centimeter lobulated structure, could relate to a calcified ovarian cystic lesion, not well characterized. No suspicious bony findings. IMPRESSION: Lobulated fluid collection with thick enhancing margins in the right lower quadrant with adjacent fat stranding and segmental wall thickening and mucosal hyperenhancement of the cecum and p roximal ascending colon. Findings are concerning for ruptured appendicitis with periappendiceal colle ction and adjacent colitis, versus complicated colitis with paracolic abscess. Please correlate with history of prior appendectomy. Adjacent asymmetric bladder wall thickening on the right, likely react pre[place]. No evidence of free air. Cholelithiasis and suggestion of small region of gallbladder wall calcification. Right pelvic calcified 3.1 centimeter structure may represent a calcified ovarian cystic lesion. Not well characterized. CT chest reported separately. Results were communicated to [facility] on 12/11/2022 at 5:54 p.m..
[2022-12-11 18:02] LABS: Blood Morphology Comment NOT SEEN (NOT SEEN); Platelet Estimate ADEQ; White Blood Cell Scan OK (OK)
[2022-12-11] MEDS ORDERED: VANCOMYCIN 1 GM/VIAL ONE (18:10)
[2022-12-11] MEDS ORDERED: PIPERACIL/TAZO 3.375 GM VIAL IV ONE (18:10)
[2022-12-11] MEDS ORDERED: NA CHLORIDE 0.9% 100 ML ONE (18:11)
[2022-12-11] MEDS ORDERED: NOREPINEPHRINE BITARTRATE/D5W 4 MG/250 ML BAG IV ONE (19:40)
[2022-12-11] MEDS ORDERED: POTASSIUM 25 MEQ EFFERV TAB ONE (19:57)
[2022-12-11 20:28] VITALS: TEMP 98.7
[2022-12-11 20:36] VITALS: O2SAT 100
[2022-12-11 20:39] VITALS: BP 93/67
--- NOTE | 2022-12-12 17:13 | EKG ---
Test Date: 2022-12-11 Test Time: 15:31:42 [employer] Teacher: TIMOTHY MEASUREMENT RESULTS: Intervals: Rate: 115 LA: 158 QRSD: 84 QT: 290 QTc: 401 [place]: P: 48 LA: 158 QRS: -40 T: 90 INTERPRETIVE STATEMENTS: Sinus tachycardia Possible Left atrial enlargement Left axis deviation Low voltage QRS Cannot rule out Anteroseptal infarct, age undetermined Abnormal ECG Compared to ECG 11/01/2022 21:14:45 Sinus rhythm no longer present Myocardial infarct finding still present Electronically Signed On 12-12-22 17:09:34 VENDOR MANAGER by Hector Kirkland
== END 2022-12-11 20:23 | disposition short-term general hospital (02) ==
LOC: ER 15:22
DX: A41.89 Other specified sepsis (principal); J16.8 Pneumonia due to other specified infectious organisms; K35.33 Acute appendicitis with perforation, localized peritonitis, and gangrene, with abscess; R65.21 Severe sepsis with septic shock; I50.9 Heart failure, unspecified; I10 Essential (primary) hypertension; E11.9 Type 2 diabetes mellitus without complications; I25.2 Old myocardial infarction; Z20.822 Contact with and (suspected) exposure to COVID-19; Z85.038 Personal history of other malignant neoplasm of large intestine; Z79.82 Long term (current) use of aspirin; Z79.4 Long term (current) use of insulin
CPT/HCPCS: 93005; 87040 ×2; 85025; 80048; 36415; 83735; 85610; 80076; 83605 ×2; 84484; 83690; 84145; 83880; 0240U; 71275; 74177; 71045; 99285; Q9967; J2543; J3370; J3475; J7050 ×3; J7030; J0456

== ENCOUNTER 2023-04-08 13:47 | Emergency (ER) | payer BC ==
--- OUTSIDE RECORDS SUMMARY | 2023-04-08 13:56 | XMS REPORT | Continuity of Care Document ---
:1970 Author Organization [facility] t Address [address] [place] [address] Care Team Providers Name Role Phone SHARPLESS Primary Care Physician Unavailable ETTA NAVARRETE Attending Clinician Unavailable DONNY SANCHEZ Attending Clinician Unavailable JESUS REINA Attending Clinician Unavailable SON MARKHAM Attending Clinician Unavailable KOJO COX Attending Clinician Unavailable ETTA NAVARRETE Attending Clinician Unavailable ROBIN REDDY Attending Clinician Unavailable Megan Guadarrama MD Attending Clinician Aniyah Nava RN Attending Clinician Unavailable Marcie Rodríguez MA Attending Clinician Unavailable Jenniffer Adam MD Attending Clinician KOJO TUCKER Attending Clinician Unavailable Marco PEÑA, Derek Ross Attending Clinician Marshall Gage MD Attending Clinician Roman BOYLE, Omayra Attending Clinician Ac Phillips CRNA Attending Clinician [phone] MD KARIS HUA Attending Clinician Unavailable Sujatha Lane MA Attending Clinician Unavailable Ab Pierre MA Attending Clinician Unavailable MONIKA SNELL Attending Clinician Unavailable Mery PEÑA, Rosie Freitas Attending Clinician Monika Snell MD Attending Clinician Valerie Caballero MD' Attending Clinician [phone] ETTA NAVARRETE Admitting Clinician Unavailable DONNY SANCHEZ Admitting Clinician Unavailable JENNIFFER ADAM Admitting Clinician Unavailable ROSIE ORDONEZ Admitting Clinician Unavailable Payers Payer Name Policy Type Policy Number Effective Date Expiration Date [facility] [id number] 2014 00:00:00 PRETP OUT OF STATE [facility] [id number] - PPO - [facility] [id number] [facility] [id number] 2020 00:00:00 POS/PPO/EPO Problems Condition Condition Condition Status Onset Resolution Last Treating Co mments Source Name Details Category Date Date Treatment Clinician Date HFrEF HFrEF Disease Active Methodi (heart (heart 1-25 st failure failure 00:00: Hospita with with 00 l reduced reduced ejection ejection fraction) fraction) Nodule of Nodule of Disease Active Met hodi middle middle 1-25 st lobe of lobe of 00:00: Hospita right lung right lung 00 l Essential Essential Disease Active Met hodi hypertensi hypertensi 1-25 st on on 00:00: Hospita 00 l Mixed Mixed Disease Active [facility]i hyperlipid hyperlipid 1-25 st emia emia 00:00: Hospita 00 l 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 00:00: Hospit a with with 00 l diabetic diabetic polyneurop polyneurop athy, with athy, with long-term long-term current current use of use of insulin insulin Acute Acute Disease Active 2021-10 [facility] respirator respirator 2- st y failure y failure 00:00: Hosp korina with with 00 l hypoxia hypoxia 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 Added automatic ally from request for surgery [id number] Shortness Shortness Disease Active 2021-10 Overview: Methodi of breath of breath 12-06 Formattin s t 00:00: g of this Hospita 00 note l might be different from the original. 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 UPDATED BY ICD10 SNOMED/IM O UPDATES Uncontroll Uncontroll Disease Recurre [facility] ed type 2 ed type 2 [facility] diabetes diabetes Medica l mellitus mellitus Center with with hyperglyce hyperglyce abelardo abelardo Hypertensi Hypertensi Disease Active C HI [facility] on on [facility] Pain, Pain, Diagnosis Active Common joint, joint, Spirit shoulder, shoulder, - [facility] I right right [facility] Subacromia Subacromia Diagnosis Active Common l bursitis l bursitis Sp lance of right of right - [facility] shoulder shoulder St joint joint [facility] Allergies, Adverse Reactions, Alerts Allergy Allergy Status Severity Reaction(s) Onset Inactive Treating Comm ents Source Name Type Date Date Clinician NO KNOWN Allergy Active SLSL ALLERGIE S Family History Family Member Diagnosis Comments Start Date Stop Date Source Natural father Heart attack [facility] Natural father Heart failure [facility] Natural father Cancer [facility] Natural father Diabetes [facility] Natural father Hearing loss [facility] Natural father Heart disease [facility] Maternal grandfather Heart disease [facility] mother Cancer [facility] Social History Social Habit Start Date Stop Date Quantity Comments Source History SDOH [facility] Transport [facility] Center Tobacco use and 2022-11-22 2022-11-22 Smokeless tobacco Me thodist exposure 00:00:00 00:00:00 non-user Hospital Cigarettes smoked 2022-04-11 2022-04-11 [facility] current (pack per 00:00:00 00:00:00 Hospita l day) - Reported Cigarette 2022-04-11 2022-04-11 [facility] pack-years 00:00:00 00:00:00 Hospital Alcohol intake 2022-02-09 2022-02-09 Ex-drinker [facility] 00:[facility] 00:00:00 (finding) Medical Center History [facility] 2022-02-08 2022-02-[address] [facility] Housing Places 00:00:00 00:00:00 Medical Ce nter Lived History [facility] 2022-02-08 2022-02-[address] [facility] Homeless 00:00:00 00:00:00 Medical Center Last Year History [facility] 2022-02-08 2022-02-[address] [facility] Med 00:00:00 00:00:[address] History [facility] 2022-02-08 2022-02-[address] [place] Unable to 00:00:00 00:00:00 Medical Center Pay History of tobacco 2005-10-08 2008-10-09 Cigar Smoker Meth odist use 00:00:00 00:00:00 Hospital Sex Ass[birth year] At [birth year] ROBERT Mol[facility] kes 00:00:00 00:00:00 Medical Center Smoking Status Start Date Stop Date Source Ex-smoker 2022-11-22 00:00:00 2022-11-22 [facility] Ordered Filled Start Stop Current Ordering Indication Dosage Frequency Signature Comments Components Source Medication Medication Date Date Medication? Clinician (SIG) Name Name aspirin Yes 81mg QD Take 1 Methodi (ECOTRIN) 1-31 tablet (81 st 81 MG 09:37: mg total) Hospita enteric 15 by mouth l coated daily. tablet dapaglifloz Yes 1{tbl} Q2D Take 1 Me thodi in-metformi 1-[address] n 10-1,000 09:37: mouth Hospit a mg tablet, 15 every l IR & ER, other day. biphasic 24hr montelukast Yes 10mg QD Take 1 Meth stewart (SINGULAIR) 1-31 tablet (10 st 10 mg 09:37: mg total) Hospita tablet 15 by mouth l nightly. timolol Yes 1[drp] Q.5D Administer Me thodi (TIMOPTIC) 1-[address] 0.5 % 09:37: into the Hospita ophthalmic 15 left eye 2 l solution (two) times a day. aspirin Yes 81mg QD Take 1 [facility] (ECOTRIN) 10-31 tablet (81 st 81 MG 10:11: mg total) Hospita enteric 40 by mouth l coated daily. tablet dapaglifloz Yes 1{tbl} Q2D Take 1 Me thodi in-metformi 10-[address] n 10-1,000 10:11: mouth [...] l solution (two) times a day. lisinopriL 2021-10 No 5mg QD Take 1 Meth stewart (PRINIVIL) - tablet (5 st 5 mg tablet 00:00: 05:59 mg total) Hospita 00 :00 by mouth l daily. metoprolol 2021-10 No 12.5mg QD Take 0.5 Methodi succinate - tablets st XL 00:00: 05:59 (12.5 mg Hospita (TOPROL-XL) 00 :00 total) by l 25 mg 24 hr mouth tablet daily. digOXIN 2021-10 No 125ug QD Take 1 Method i (LANOXIN) - tablet st 125 mcg 00:00: 05:59 (125 mcg Hospi ta (0.125 mg) 00 :00 total) by l tablet mouth daily. spironolact 2021-10 No 12.5mg QD Take 0.5 Methodi one -27 10-[address] (ALDACTONE) 00:00: 05:59 (12.5 mg H ospita 25 MG 00 :00 total) by l tablet mouth daily. lisinopriL 2021-10 No 5mg QD Take 1 Meth stewart (PRINIVIL) 30 - tablet (5 st 5 mg tablet 00:00: 05:59 mg total) Hospita 00 :00 by mouth l daily. metoprolol 2021-10 No 12.5mg QD Take 0.5 Methodi succinate - tablets st XL 00:00: 05:59 (12.5 mg Hospita (TOPROL-XL) 00 :00 total) by l 25 mg 24 hr mouth tablet daily. digOXIN 2021-10- No 125ug QD Take 1 Method i (LANOXIN) 10-[address] 125 mcg 00:00: 05:59 (125 mcg Hospi ta (0.125 mg) 00 :00 total) by l tablet mouth daily. spironolact 2021-10 No 12.5mg QD Take 0.5 Methodi one 10-[address] (ALDACTONE) 00:00: 05:59 (12.5 mg H ospita 25 MG 00 :00 total) by l tablet mouth daily. pantoprazol 2021-10 No 40mg QD Take 1 Met hodi e 11-27 tablet (40 st (PROTONIX) 00:00: 05:59 mg total) H ospita 40 MG EC 00 :00 by mouth l tablet daily for 30 days. pantoprazol 2021-10- No 40mg QD Take 1 [...] 2-[address] gauge x 00:00: Hospita 16" 00 l needle insulin 2021-10 Yes 8U QD Inject 8 Method i glargine-yf 2-[address] gn 00:00: under the Hospita (Semglee,in 00 skin l sulin daily. glarg-yfgn, Pen) 100 unit/mL (3 mL) insulin pen pen needle, 2021-10 Yes 1{each} QD 1 each M ethodi diabetic 32 2-[address] gauge x 00:00: Hospita 03/13" 00 l needle mexiletine 2021-10- No 150mg [id number] Take 1 Methodi (MEXITIL) 10-[id number] 150 MG 00:00: 05:59 3D (150 mg Hospita capsule 00 :00 total) by l mouth every 8 (eight) hours. torsemide 2021-10- No 40mg Q.5D Take 2 Metho di (DEMADEX) 12-[address] 20 MG 00:00: 05:59 (40 mg Hospita tablet 00 :00 total) by l mouth 2 (two) times a day. magnesium 2021-10 No 400mg Q.5D Take 1 Meth stewart oxide -[address] (MAG-OX) 00:00: 05:59 (400 mg Hospi ta 400 mg 00 :00 total) by l (241.3 mg mouth 2 magnesium) (two) tablet times a day. mexiletine 2021-10- No 150mg Q.[id number] Take 1 Methodi (MEXITIL) 12-[id number] 150 MG 00:00: 05:59 3D (150 mg Hospita capsule 00 :00 total) by l mouth every 8 (eight) hours. torsemide 2021-10- No 40mg Q.5D Take 2 Metho di (DEMADEX) 10-[address] 20 MG 00:00: 05:59 (40 mg Hospita tablet 00 :00 total) by l mouth 2 (two) times a day. magnesium 2021-10 No 400mg Q.5D Take 1 Meth stewart oxide 10-[address] (MAG-OX) 00:00: 05:59 (400 mg Hospi ta 400 mg 00 :00 total) by l (241.3 mg mouth 2 magnesium) (two) tablet times a day. ferrous 2021-10 No 325mg Q.5D Take 1 Method i sulfate 325 11-[address] (65 FE) MG 00:00: 05:59 (325 mg Hos ernesto tablet 00 :00 total) by l mouth 2 (two) times a day with meals for 30 days. ferrous 2021-10 No 325mg Q.5D Take 1 Method i [...] QD Take 1 Met hodi e (ACTOS) 0-01 07- tablet (15 st 15 MG 00:00: 00:00 mg total) Hospit a tablet 00 :00 by mouth l daily. pioglitazon 2021-10- No 15mg QD Take 1 Met hodi e (ACTOS) 0-01 07- tablet (15 st 15 MG 00:00: 00:00 mg total) Hospit a tablet 00 :00 by mouth l daily. niacin 2021-0 Yes 500mg QD Take 1 Methodi (NIASPAN) 07-[address] 500 MG CR 00:00: (500 mg Hospi ta tablet 00 total) by l mouth nightly. niacin 2021-0 2021- No 500mg QD Take 1 Methodi (NIASPAN) 07-[address] 500 MG CR 00:00: 00:00 (500 mg Hosp korina tablet 00 :00 total) by l mouth nightly. niacin 2021-0 2021- No 500mg QD Take 1 Methodi (NIASPAN) 07-[address] 500 MG CR 00:00: 00:00 (500 mg Hosp korina tablet 00 :00 total) by l mouth nightly. brimonidine 2021-0 Yes 1[drp] Q.5D Administer Methodi (ALPHAGAN) [address] 0.2 % 00:00: both eyes Hospita ophthalmic 00 2 (two) l solution times a day. brimonidine 2-0 Yes 1[drp] Q.5D Administer Methodi (ALPHAGAN) 9-[address] 0.2 % 00:00: both eyes Hospita ophthalmic 00 2 (two) l solution times a day. brimonidine 2-0 Yes INSTILL 1 M ethodi (ALPHAGAN) 9-[address] 0.2 % 00:00: EACH EYE Hospita ophthalmic 00 THREE l solution TIMES DAILY atorvastati 2-0 Yes 40mg QD Take 1 Meth stewart n (LIPITOR) 6-07 tablet (40 st 40 mg 00:00: mg total) Hospita tablet 00 by mouth l nightly. atorvastati 2022-0 Yes 40mg QD Take 40 mg Methodi [...] :00 by mouth l daily. lisinopriL 2021-0 202- No 5mg Take 1 Meth stewart (PRINIVIL) 04-04 tablet (5 st 5 mg tablet 00:00: 00:00 mg total) Hospita 00 :00 by mouth l as needed. lisinopriL 2021-0 2- No 5mg Take 1 Meth stewart (PRINIVIL) 04-04 tablet (5 st 5 mg tablet 00:00: 00:00 mg total) Hospita 00 :00 by mouth l as needed. lisinopriL 2021-0 2021- No 5mg Take 1 Meth stewart [...] Hospita 00 :00 l Farxiga 10 2021-0 2021- No 10mg QD Take 10 mg [...] :00 by mouth Center daily. clopidogreL 2021-0 2022- No 75mg QD Take 1 [facility] [...] by mouth Center daily. aspirin 81 2021-0 2023- No 81mg QD Take [address] [...] clopidogreL 2022- No 75mg QD Take 1 Met hodi [...] % 51 daily. Center ophthalmic solution brimonidine 2021-0 Yes 1[drp] Q.5D [address] -timoloL 4-15 (two) [facility]ukes (COMBIGAN) 15:45: times Medica l 0.2-0.5 % 51 daily. Center ophthalmic solution metFORMIN 2021- No 500mg Take [address] (GLUCOPHAGE 4-15 04-15 mg by [facility] ) 500 MG 14:21: 00:00 mouth 2 Medic al tablet 15 :00 (two) Center times daily with breakfast and dinner. metFORMIN 2021-0 2021- No 500mg Take [address] (GLUCOPHAGE 4-15 04-15 mg by [facility] ) 500 MG 14:21: 00:00 mouth 2 Medic al tablet 15 :00 (two) Center times daily with breakfast and dinner. metFORMIN 2021-0 2021- No 500mg Take [address] (GLUCOPHAGE 4-15 04-15 mg by [facility] ) 500 MG 14:21: 00:00 mouth 2 Medic al tablet 15 :00 (two) Center times daily with breakfast and dinner. ibuprofen 2021-0 202- No 200mg Take [address] (ADVIL,MOTR 4-15 04-15 mg by [facility] IN) 200 MG 14:19: 00:00 mouth Medic al tablet 10 :00 every 6 Center (six) hours as needed for Pain. ibuprofen 2021-0 2021- No 200mg Take [address] (ADVIL,MOTR 4-15 04-15 mg by [facility] IN) 200 MG 14:19: 00:00 mouth Medic al tablet 10 :00 every 6 Center (six) hours as needed for Pain. ibuprofen 2021-0 2021- No 200mg Take [address] (ADVIL,MOTR 4-15 04-15 mg by [facility] IN) 200 MG 14:19: 00:00 mouth Medic al tablet 10 :00 every 6 Center (six) hours as needed for Pain. carvediloL 2021-0 Yes 12.5mg Q.5D Take 1 Met hodi (COREG) 4-[address] 12.5 MG 00:00: (12.5 mg Hospit a tablet 00 total) by l mouth 2 (two) times a day with meals. metFORMIN 2021-0 Yes 1000mg Take [address] (GLUCOPHAGE 4-15 tablet [facility] ) 1000 MG 00:00: (1,000 mg Med ical tablet 00 total) by Center mouth 2 (two) times daily with breakfast and dinner. metFORMIN 2021-0 Yes 1000mg Take [address] (GLUCOPHAGE 4-15 tablet [facility] ) 1000 MG 00:00: (1,000 mg Med ical tablet 00 total) by Center mouth 2 (two) times daily with breakfast and dinner. metFORMIN 2022-0 Yes 1000mg Take [address] (GLUCOPHAGE 4-15 tablet [facility] ) 1000 MG 00:00: (1,000 mg Med ical tablet 00 total) by Center mouth 2 (two) times daily with breakfast and dinner. metFORMIN 2022-0 Yes 1000mg Take [address] (GLUCOPHAGE 4-15 tablet [facility] ) 1000 MG 00:00: (1,000 mg Med ical tablet 00 total) by Center mouth 2 (two) times daily with breakfast and dinner. atorvastati 2021-2022- No 40mg QD Take 1 [...] Center mouth 2 (two) times daily. furosemide 2021-2022- No 40mg Take [address] (LASIX) [...] Center mouth 2 (two) times daily. furosemide 2021-2022- No 40mg Take [address] (LASIX) [...] Take [address] n (LIPITOR) 4-15 -15 tablet (40 L ukes 40 MG 00:00: 23:59 mg total) Medica l tablet 00 :00 by mouth Center nightly. carvediloL 2022- No 12.5mg Q.5D Take [address] (COREG) 15 -15 tablet [facility]ukes 12.5 MG 00:00: 23:59 [...] Take 1 [facility]I S t (GLUCOTROL) 4-15 -15 tablet (5 Marilu kes 5 MG [...] Spirit or milk as - [facility] needed [facility] Vital Signs Vital Name Observation Time Observation Value Comments Source HEIGHT 2020-10-12 13:29:00 165.1 cm WEIGHT 2020-10-12 13:29:00 63.504 kg HEIGHT 2022-02-08 05:00:00 167.6 cm WEIGHT 2022-02-08 05:00:00 67.178 kg HEIGHT 2022-02-08 05:00:00 167.6 cm WEIGHT 2022-02-08 05:00:00 67.178 kg HEIGHT 2020-10-12 13:29:00 165.1 cm WEIGHT 2020-10-12 13:29:00 63.504 kg Body height 2022-12-07 14:11:00 165.1 cm [facility] Body weight 2022-12-07 14:11:00 45.36 kg [facility] BMI 2022-12-07 14:11:00 16.64 kg/m2 [facility] Systolic blood 2022-11-29 21:19:00 110 mm[Hg] Method [facility] pressure Diastolic blood 2022-11-29 21:19:00 76 mm[Hg] [facility] pressure Heart rate 2022-11-29 21:19:00 101 /min [facility] Body temperature 2022-11-29 21:19:00 36.33 Rachell [facility] Oxygen saturation in 2022-11-29 21:19:00 96 /min [facility] Arterial blood by Pulse oximetry Respiratory rate 2022-11-22 15:13:00 16 /min [facility] Systolic blood 2022-10-31 16:08:00 102 mm[Hg] Method [facility] pressure Diastolic blood 2022-10-31 16:08:00 62 mm[Hg] [facility] pressure Heart rate 2022-10-31 16:08:00 89 /min [facility] Body height 2022-10-31 16:08:00 165.1 cm [facility] Body weight 2022-10-31 16:08:00 48.081 kg [facility] BMI 2022-10-31 16:08:00 17.64 kg/m2 [facility] Respiratory rate 2022-10-26 21:28:00 18 /min [facility] Oxygen saturation in 2022-10-26 21:28:00 99 /min [facility] Arterial blood by Pulse oximetry Body temperature 2022-10-26 17:22:06 36.22 Rachell [facility] Systolic blood 2022-09-26 15:49:00 123 mm[Hg] Method [facility] pressure Diastolic blood 2022-09-26 15:49:00 75 mm[Hg] [facility] pressure Heart rate 2022-09-26 15:49:00 98 /min [facility] Body height 2022-09-26 15:49:00 165.1 cm [facility] Body weight 2022-09-26 15:49:00 70.308 kg [facility] BMI 2022-09-26 15:49:00 25.79 kg/m2 [facility] Systolic blood 2022-02-10 12:00:00 127 mm[Hg] [facility] Diastolic blood 2022-02-10 12:00:00 79 mm[Hg] [facility] Heart rate 2022-02-10 12:00:00 85 /min [facility] Body temperature 2022-02-10 12:00:00 36.39 Rachell [facility] Respiratory rate 2022-02-10 12:00:00 18 /min [facility] Oxygen saturation in 2022-02-10 12:00:00 96 /min [facility] Arterial blood by Medical Ce nter Pulse oximetry Body height 2022-02-08 05:00:00 167.6 cm [facility] Body weight 2022-02-08 05:00:00 67.178 kg [facility] BMI 2022-02-08 05:00:00 23.90 kg/m2 [facility] Procedures Procedure Date / Time Performing Clinician Source Performed CT CHEST W CONTRAST 2022-12-07 15:44:13 Megan Guadarrama [facility] ABDOMEN W CONTRAST PELVIS W CONTRAST TTE COMPLETE, WO CONTRAST, 2022-12-04 21:22:00 Jesus Reina [facility] W DOPPLER ([id number]) CBC WITH PLATELET AND 2022-11-29 22:27:00 Megan Guadarrama [facility] DIFFERENTIAL COMPREHENSIVE METABOLIC 2022-11-29 22:27:00 Megan Guadarrama [facility] PANEL CARCINOEMBRYONIC ANTIGEN 2022-11-29 22:27:00 VobuMegan oneal [facility] (CEA) CANCER ANTIGEN 19-9 2022-11-29 22:27[facility]00 [facility] PARTIAL THROMBOPLASTIN 2022-11-29 22:27:00 [facility] TIME (PTT) PROTHROMBIN TIME WITH INR 2022-11-29 22:27:00 [facility] ESTIMATED GFR 2022-11-29 22:27:00 [facility]ist Ho spital POC GLUCOSE 2022-10-26 18:22:00 [facility] POC GLUCOSE 2022-10-26 13:40:00 [facility]ital POC GLUCOSE 2022-10-26 02:58:00 [facility]ital POC GLUCOSE 2022-10-25 23:35:00 [facility] POC GLUCOSE 2022-10-25 18:30:00 [facility] POC GLUCOSE 2022-10-25 14:18:00 [facility]ital BASIC METABOLIC PANEL 2022-10-25 10:16:00 [facility] MAGNESIUM LEVEL 2022-10-25 10:16:00 [facility] PHOSPHORUS LEVEL 2022-10-25 10:16:00 [facility] CBC WITH PLATELET AND 2022-10-25 10:16:00 Kojo Tucker [facility] DIFFERENTIAL ESTIMATED GFR 2022-10-25 10:16:00 [facility] SMEAR REVIEW 2022-10-25 10:16:[facility] 2022-10-25 03:41:00 [facility] POC GLUCOSE 2022-10-25 00:24:00 [facility] AND 2022-10-24 19:02:00 [facility] DIFFERENTIAL SMEAR REVIEW 2022-10-24 19:02:00 [facility] POC GLUCOSE 2022-10-24 17:50:00 Kojo Tucker [facility] POC GLUCOSE 2022-10-24 14:02:00 [facility] HEMOGLOBIN & HEMATOCRIT 2022-10-24 12:04:00 [facility] BASIC METABOLIC PANEL 2022-10-24 12:03:00 [facility] MAGNESIUM LEVEL 2022-10-24 12:03:00 [facility] PHOSPHORUS LEVEL 2022-10-24 12:03:00 [facility] C-PEPTIDE 2022-10-24 12:03:00 [facility] ESTIMATED GFR 2022-10-24 12:03:00 [facility] POC GLUCOSE 2022-10-24 03:08:00 [facility] POC GLUCOSE 2022-10-23 23:46:00 [facility] POC GLUCOSE 2022-10-23 18:07:00 [facility] XR CHEST 1 VW PORTABLE 2022-10-23 15:35:32 Dem[facility]go [facility] POC GLUCOSE 2022-10-23 13:26:00 [facility] O2 SATURATION, VENOUS 2022-10-23 11:13:[address] [facility] BASIC METABOLIC PANEL 2022-10-23 11:13:00 [facility] MAGNESIUM LEVEL 2022-10-23 11:13:00 [facility] PHOSPHORUS LEVEL 2022-10-23 11:13:00 [facility] HEMOGLOBIN & HEMATOCRIT 2022-10-23 11:13:00 [facility] ESTIMATED GFR 2022-10-23 11:13:00 [facility] POC GLUCOSE 2022-10-22 23:20:00 [facility] POC GLUCOSE 2022-10-22 17:18:00 [facility] POC GLUCOSE 2022-10-22 14:13:00 [facility] XR CHEST 1 VW PORTABLE 2022-10-22 13:32:15 Demetra Ngo [facility] O2 SATURATION, VENOUS 2022-10-22 11:21:00 Demetra Ngo [facility] Desai MAGNESIUM LEVEL 2022-10-22 11:21:00 [facility] PHOSPHORUS LEVEL 2022-10-22 11:21:00 [facility] BASIC METABOLIC PANEL 2022-10-22 11:21:00 [facility] NAT[facility] PEPTIDE 2022-10-22 11:21:00 Keny [facility] LACTIC ACID LEVEL 2022-10-22 11:21:00 [facility] ESTIMATED GFR 2022-10-22 11:21:00 Kaushal Bustillo spital Vincent POC GLUCOSE 2022-10-21 23:15:00 [facility] POC GLUCOSE 2022-10-21 17:50:00 [facility] XR CHEST 1 VW PORTABLE 2022-10-21 14:21:00 Demetra Ngo [facility] Desai POC GLUCOSE 2022-10-21 14:11:00 [facility] O2 SATURATION, VENOUS 2022-10-21 11:13:[address] [facility] MAGNESIUM LEVEL 2022-10-21 11:13:00 [facility] PHOSPHORUS LEVEL 2022-10-21 11:13:00 [facility] DIGOXIN LEVEL 2022-10-21 11:13:00 Kaushal Bustillo spital Vincrohini CBC WITH PLATELET AND 2022-10-21 11:13:00 Kaushal Bustillo [facility] DIFFERENTIAL Vincent BASIC METABOLIC PANEL 2022-10-21 11:13:00 Kaushal Bustillo [facility] B NATRIURETIC PEPTIDE 2022-10-21 11:13:00 Keny [facility] LACTIC ACID LEVEL 2022-10-21 11:13:00 Keny [facility] Vincrohini ESTIMATED GFR 2022-10-21 11:13:00 [facility]ME[facility] 2022-10-21 11:13:00 Kaushal Bustillo [facility] POC GLUCOSE 2022-10-21 03:05:00 [facility] POC GLUCOSE 2022-10-21 00:07:00 [facility] POC GLUCOSE 2022-10-20 18:41:00 [facility] XR CHEST 1 VW PORTABLE 2022-10-20 16:20:00 Dem[facility] POC GLUCOSE 2022-10-20 15:45:00 [facility] POC GLUCOSE 2022-10-20 14:57:00 [facility] O2 SATURATION, VENOUS 2022-10-20 11:41:[address] [facility] MAGNESIUM LEVEL 2022-10-20 11:41:00 [facility] PHOSPHORUS LEVEL 2022-10-20 11:41:00 [facility] C-PEPTIDE 2022-10-20 11:41:00 María Mehta [facility] CBC WITH PLATELET AND 2022-10-20 11:41:00 [facility] DIFFERENTIAL Vincrohini BASIC METABOLIC PANEL 2022-10-20 11:41:00 Keny [facility] HEPATIC FUNCTION PANEL 2022-10-20 11:41:00 Kaushal Bustillo [facility] B NATRIURETIC PEPTIDE 2022-10-20 11:41:00 Kaushal Bustillo [facility] LACTIC ACID LEVEL 2022-10-20 11:41:00 [facility] FERRITIN LEVEL 2022-10-20 11:41:00 [facility] RETICULOCYTE COUNT 2022-10-20 11:41:00 [facility] TOTAL IRON BINDING 2022-10-20 11:41:00 [facility] CAPACITY ESTIMATED GFR 2022-10-20 11:41:00 Kaushal Bustillo spierickson Monet SMEAR REVIEW 2022-10-20 11:41:00 Kaushal Bustillo [facility] Chkii TRANSFUSE RED BLOOD CELLS 2022-10-20 04:26:00 [facility] POC GLUCOSE 2022-10-20 03:13:00 [facility] TTE LIMITED W CONTRAST, W 2022-10-20 00:19:00 [facility] DOPPLER ([id number]) POC GLUCOSE 2022-10-20 00:11:00 [facility] TYPE AND SCREEN 2022-10-19 19:36:00 [facility] PREPARE RBC 2022-10-19 19:36:00 [facility] POC GLUCOSE 2022-10-19 18:03:00 [facility] XR CHEST 1 VW PORTABLE 2022-10-19 15:54:25 Kaushal Bustillo [facility] Vincent POC GLUCOSE 2022-10-19 14:40:00 [facility] MAGNESIUM LEVEL 2022-10-19 13:54:00 Demetra Ngo [facility] O2 SATURATION, VENOUS 2022-10-19 13:54:[address] [facility] PHOSPHORUS LEVEL 2022-10-19 13:54:00 Demetra Ngo [facility] B NATRIURETIC PEPTIDE 2022-10-19 13:54:00 Kaushal Bustillo [facility] Vincrohini BILIRUBIN DIRECT 2022-10-19 13:54:00 Kaushal Bustillo ospital Chiki ESTIMATED GFR 2022-10-19 13:54:00 [facility] COMPREHENSIVE METABOLIC 2022-10-19 13:54:00 [facility] PANEL CBC WITH PLATELET AND 2022-10-19 13:54:00 [facility] DIFFERENTIAL SMEAR REVIEW 2022-10-19 13:54:00 [facility] POC GLUCOSE 2022-10-19 02:56:00 [facility] POC GLUCOSE 2022-10-18 23:48:00 [facility] POC GLUCOSE 2022-10-18 17:52:00 [facility] XR CHEST 1 VW PORTABLE 2022-10-18 15:20:00 Dem[facility] POC GLUCOSE 2022-10-18 13:43:00 [facility] CBC WITH PLATELET AND 2022-10-18 12:18:00 Demetra Ngo [facility] DIFFERENTIAL Desai COMPREHENSIVE METABOLIC 2022-10-18 12:18:00 Wilbur Ngosandra [facility] PANEL [facility] MAGNESIUM LEVEL 2022-10-18 12:18:00 Demetra Ngo [facility] O2 SATURATION, VENOUS 2022-10-18 12:18:[address] [facility] PHOSPHORUS LEVEL 2022-10-18 12:18:[address] [facility] PROTHROMBIN TIME WITH INR 2022-10-18 12:18:00 Brandyn Ngo [facility] ESTIMATED GFR 2022-10-18 12:18:00 [facility] POC GLUCOSE 2022-10-18 03:12:00 [facility] POC GLUCOSE 2022-10-18 00:05:00 [facility] BASIC METABOLIC PANEL 2022-10-17 19:21:00 Joni Padilla [facility] ESTIMATED GFR 2022-10-17 19:21:00 [facility] POC GLUCOSE 2022-10-17 18:01:00 [facility] POC GLUCOSE 2022-10-17 13:50:00 [facility] XR CHEST 1 VW PORTABLE 2022-10-17 12:42:22 Demetra Ngo [facility] CLOSTRIDIUM DIFFICILE 2022-10-17 11:12:00 [facility] TOXIN GENE (QUALITATIVE [place] REAL-TIME PCR) BASIC METABOLIC PANEL 2022-10-17 11:01:00 [facility] CBC WITH PLATELET AND 2022-10-17 11:01:00 [facility] DIFFERENTIAL [facility] MAGNESIUM LEVEL 2022-10-17 11:01:[address] [facility] PHOSPHORUS LEVEL 2022-10-17 11:01:00 [facility] IONIZED CALCIUM 2022-10-17 11:01:[address] [facility] PARTIAL THROMBOPLASTIN 2022-10-17 11:01:00 [facility] TIME (PTT) [facility] ESTIMATED GFR 2022-10-17 11:01:00 Rocky Sinha H ospital SMEAR REVIEW 2022-10-17 11:01:00 Rocky Sinha H ospital POC GLUCOSE 2022-10-17 10:26:00 [facility] CBC WITH PLATELET AND 2022-10-17 09:16:00 Demetra Ngo [facility] DIFFERENTIAL [facility] COMPREHENSIVE METABOLIC 2022-10-17 09:16:00 Demetra Ngo [facility] PANEL [facility] MAGNESIUM LEVEL 2022-10-17 09:16:00 Demetra Ngo [facility] O2 SATURATION, VENOUS 2022-10-17 09:16:[address] [facility] PHOSPHORUS LEVEL 2022-10-17 09:16:[address] [facility] PROTHROMBIN TIME WITH INR 2022-10-17 09:16:00 Brandyn Ngo [facility] ESTIMATED GFR 2022-10-17 09:16:00 [facility] POC GLUCOSE 2022-10-17 07:09:00 [facility] PARTIAL THROMBOPLASTIN 2022-10-17 04:36:00 [facility] TIME (PTT) [facility] POTASSIUM LEVEL 2022-10-17 04:36:[address] [facility] MAGNESIUM LEVEL 2022-10-17 04:36:[address] [facility] PHOSPHORUS LEVEL 2022-10-17 04:36:00 [facility] IONIZED CALCIUM 2022-10-17 04:36:[address] [facility] POC GLUCOSE 2022-10-17 02:36:00 [facility] POC GLUCOSE 2022-10-16 22:41:00 [facility] BASIC METABOLIC PANEL 2022-10-16 22:31:00 [facility] 2022-10-16 22:31:00 [facility] PHOSPHORUS LEVEL 2022-10-16 22:31:00 [facility]CIUM 2022-10-16 22:31:00 [facility] o[facility]ital ESTIMATED GFR 2022-10-16 22:31:00 Valerie [facility] ospital O2 SATURATION, VENOUS 2022-10-16 21:41:[address] [facility] POC GLUCOSE 2022-10-16 19:43:00 [facility] OR [place] < 1 HOUR 2022-10-16 18:45:00 [facility] spital XR ABDOMEN 1 VW PORTABLE 2022-10-16 16:50:00 [facility] XR CHEST 1 VW PORTABLE 2022-10-16 16:45:00 [facility] POC GLUCOSE 2022-10-16 14:59:00 [facility] XR CHEST 1 VW PORTABLE 2022-10-16 11:08:00 [facility] PARTIAL THROMBOPLASTIN 2022-10-16 10:44:00 [facility] TIME (PTT[facility] POC GLUCOSE 2022-10-16 10:20:00 [facility] PARTIAL THROMBOPLASTIN 2022-10-16 07:29:00 Rocky schwartz [facility] TIME (PTT) POC GLUCOSE 2022-10-16 06:29:00 [facility] CBC WITH PLATELET AND 2022-10-16 06:07:00 [facility] DIFFERENTIAL O2 SATURATION, VENOUS 2022-10-16 06:07:00 [facility] LIDOCAINE LEVEL 2022-10-16 06:07:00 Manuel Kirby Ho spital PARTIAL THROMBOPLASTIN 2022-10-16 06:07:00 Karis Hua [facility] TIME (PTT) IONIZED CALCIUM 2022-10-16 06:07:00 Rocky Sinha ospital COMPREHENSIVE METABOLIC 2022-10-16 06:07:00 Rocky Sinha [facility] PANEL MAGNESIUM LEVEL 2022-10-16 06:07:00 Rocky Sinha ospital ESTIMATED GFR 2022-10-16 06:07:00 Rocky Sinha ospital PHOSPHORUS LEVEL 2022-10-16 06:07:00 Rocky schwartz [facility] SMEAR REVIEW 2022-10-16 06:07:00 [facility] ESTIMATED GFR 2022-10-16 06:05:00 Eric Delgadillo [facility] POC GLUCOSE 2022-10-16 02:40:00 [facility] PARTIAL THROMBOPLASTIN 2022-10-15 22:51:00 [facility] TIME (PTT) BASIC METABOLIC PANEL 2022-10-15 22:51:00 Valerie [facility] MAGNESIUM LEVEL 2022-10-15 22:51:00 [facility] ospital PHOSPHORUS LEVEL 2022-10-15 22:51:00 Voore, [facility] IONIZED CALCIUM 2022-10-15 22:51:00 Voore, [facility] ospital ESTIMATED GFR 2022-10-15 22:51:00 [facility] ospital POC GLUCOSE 2022-10-15 22:51:00 [facility] POC GLUCOSE 2022-10-15 18:48:00 [facility] O2 SATURATION, VENOUS 2022-10-15 17:57:00 [facility] POC GLUCOSE 2022-10-15 14:57:00 [facility] PARTIAL THROMBOPLASTIN 2022-10-15 14:54:00 Ruthy Luna [facility] TIME (PTT) XR CHEST 1 VW PORTABLE 2022-10-15 12:48:28 [facility] POC GLUCOSE 2022-10-15 11:31:00 [facility] ARTERIAL BLOOD GAS 2022-10-15 09:18:00 [facility] CBC WITH PLATELET AND 2022-10-15 08:16:00 [facility] DIFFERENTIAL LACTIC ACID LEVEL 2022-10-15 08:16:00 [facility] LDH 2022-10-15 08:16:00 [facility] O2 SATURATION, VENOUS 2022-10-15 08:16:00 [facility] MAGNESIUM LEVEL 2022-10-15 08:16:00 [facility] PROTHROMBIN TIME WITH INR 2022-10-15 08:16:00 [facility] LIDOCAINE L[facility]EL 2022-10-15 08:16:00 Manuel Kirby spital COMPREHENSIVE METABOLIC 2022-10-15 08:16:00 [facility] PANEL ESTIMATED GFR 2022-10-15 08:16:00 [facility] PHOSPHORUS LEVEL 2022-10-15 08:16:00 [facility] PARTIAL THROMBOPLASTIN 2022-10-15 08:16:00 KofiManuel [facility] TIME (PTT) SMEAR REVIEW 2022-10-15 08:16:00 [facility] POC GLUCOSE 2022-10-15 06:16:00 [facility] COMPREHENSIVE METABOLIC 2022-10-15 04:17:00 [facility] PANEL ESTIMATED GFR 2022-10-15 04:17:00 [facility] POC GLUCOSE 2022-10-15 03:02:00 [facility] LACTIC ACID LEVEL 2022-10-14 23:31:00 [facility] O2 SATURATION, VENOUS 2022-10-14 23:31:00 [facility] POC GLUCOSE 2022-10-14 23:14:00 [facility] PARTIAL THROMBOPLASTIN 2022-10-14 21:20:00 [facility] TIME (PTT) POC GLUCOSE 2022-10-14 19:16:00 [facility] CARCINOEMBRYONIC ANTIGEN 2022-10-14 18:57:00 [facility] ALPHA FETOPROTEIN 2022-10-14 18:57:00 [facility]ON[facility] CALCIUM 2022-10-14 18:57:00 [facility] MAGNESIUM LEVEL 2022-10-14 18:57:00 [facility] ospital PHOSPHORUS LEVEL 2022-10-14 18:57:00 [facility] CANCER ANTIGEN 19-9 2022-10-14 18:57:00 [facility] POTASSIUM LEVEL 2022-10-14 18:57:00 [facility] ospital PARTIAL THROMBOPLASTIN 2022-10-14 15:25:00 Rocky Sinha [facility] TIME (PTT) POC GLUCOSE 2022-10-14 13:55:00 [facility] XR CHEST 1 VW PORTABLE 2022-10-14 11:51:00 [facility] POC GLUCOSE 2022-10-14 11:14:00 [facility] COMPREHENSIVE METABOLIC 2022-10-14 07:42:00 [facility] PANEL LACTIC ACID LEVEL 2022-10-14 07:42:00 [facility] LDH 2022-10-14 07:42:00 [facility] PHOSPHORUS LEVEL 2022-10-14 07:42:00 [facility] LIDOCAINE LEVEL 2022-10-14 07:42:00 Manuel Kirby [facility] spital MAGNESIUM LEVEL 2022-10-14 07:42:00 Rocky Sinha [facility] ospital ESTIMATED GFR 2022-10-14 07:42:00 [facility] CBC WITH PLATELET AND 2022-10-14 07:41:00 [facility] DIFFERENTIAL PARTIAL THROMBOPLASTIN 2022-10-14 07:41:00 [facility] TIME (PTT) IONIZED CALCIUM 2022-10-14 07:41:00 [facility] PROTHROMBIN TIME WITH INR 2022-10-14 07:41:00 [facility] ARTERIAL BLOOD GAS 2022-10-14 07:40:00 [facility] O2 SATURATION, VENOUS 2022-10-14 07:27:00 [facility] POC GLUCOSE 2022-10-14 06:34:00 [facility] POC GLUCOSE 2022-10-14 02:37:00 [facility] POC GLUCOSE 2022-10-13 23:20:00 [facility] US THORACENTESIS WITH 2022-10-13 22:08:57 Miller Reina [facility] IMAGING XR CHEST 1 VW PORTABLE 2022-10-13 21:57:29 Donte Cam [facility] BASIC METABOLIC PANEL 2022-10-13 20:26:00 Rocky schwartz [facility] MAGNESIUM LEVEL 2022-10-13 20:26:00 [facility] ospital PHOSPHORUS LEVEL 2022-10-13 20:26:00 [facility] IONIZED CALCIUM 2022-10-13 20:26:00 Rocky schwartz Braden [facility] ospital ESTIMATED GFR 2022-10-13 20:26:00 [facility] ospital SURGICAL PATHOLOGY REQUEST 2022-10-13 18:13:00 [facility] POC GLUCOSE 2022-10-13 17:32:00 [facility] COLONOSCOPY 2022-10-13 17:01:[address] [facility] POC GLUCOSE 2022-10-13 13:28:00 [facility] POC GLUCOSE 2022-10-13 12:20:00 [facility] XR CHEST 1 VW PORTABLE 2022-10-13 12:08:14 [facility] XR ABDOMEN 1 VW PORTABLE 2022-10-13 12:08:00 Leticia Pastor [facility] PARTIAL THROMBOPLASTIN 2022-10-13 10:55:00 Ruthy Luna [facility] TIME (PTT) POC GLUCOSE 2022-10-13 10:51:00 [facility] POC GLUCOSE 2022-10-13 07:28:00 [facility] LIDOCAINE LEVEL 2022-10-13 07:12:00 [facility] ARTERIAL BLOOD GAS 2022-10-13 07:12:00 [facility] CBC WITH PLATELET AND 2022-10-13 07:12:00 [facility] DIFFERENTIAL COMPREHENSIVE METABOLIC 2022-10-13 07:12:00 [facility] PANEL LACTIC ACID LEVEL 2022-10-13 07:12:00 [facility] LDH 2022-10-13 07:12:00 [facility] O2 SATURATION, VENOUS 2022-10-13 07:12:00 [facility] PHOSPHORUS LEVEL 2022-10-13 07:12:00 [facility] MAGNESIUM LEVEL 2022-10-13 07:12:00 [facility] ESTIMATED GFR 2022-10-13 07:12:00 [facility] IONIZED CALCIUM, ARTERIAL 2022-10-13 07:12:00 [facility] POC GLUCOSE 2022-10-13 03:24:00 [facility] PARTIAL THROMBOPLASTIN 2022-10-13 01:39:00 [facility] TIME (PTT) URINE CULTURE 2022-10-13 00:23:00 [facility] POC GLUCOSE 2022-10-12 23:38:00 [facility] XR CHEST 1 VW PORTABLE 2022-10-12 22:56:39 [facility] URINALYSIS SCREEN AND 2022-10-12 22:17:00 [facility] MICROSCOPY, WITH REFLEX TO CULTURE CT CHEST WO CONTRAST 2022-10-12 19:45:44 [facility] HEAD WO CONTRAST 2022-10-12 19:45:32 [facility] POC GLUCOSE 2022-10-12 18:47:00 Clif Barone [facility] ESTIMATED GFR 2022-10-12 18:19:00 Rocky Sinha ospital PARTIAL THROMBOPLASTIN 2022-10-12 18:17:00 Miller Reina [facility] TIME (PTT) PHOSPHORUS LEVEL 2022-10-12 18:17:00 [facility] IONIZED CALCIUM 2022-10-12 18:17:00 [facility] BASIC METABOLIC PANEL 2022-10-12 18:17:00 Rocky schwartz [facility] MAGNESIUM LEVEL 2022-10-12 18:17:00 Rocky schwartz ospital ESTIMATED GFR 2022-10-12 18:17:00 Rocky Sinha ospital POC GLUCOSE 2022-10-12 14:53:00 Karis Hua Ho spital XR CHEST 1 VW PORTABLE 2022-10-12 12:36:50 [facility] POC GLUCOSE 2022-10-12 11:00:00 Karis Hua Ho spital LIDOCAINE LEVEL 2022-10-12 10:18:00 Manuel Kirby spital PARTIAL THROMBOPLASTIN 2022-10-12 10:18:00 Karis Hua [facility] TIME (PTT) O2 SATURATION, VENOUS 2022-10-12 07:24:00 [facility] ARTERIAL BLOOD GAS 2022-10-12 07:23:00 [facility] COMPREHENSIVE METABOLIC 2022-10-12 07:23:00 [facility] PANEL CBC WITH PLATELET AND 2022-10-12 07:23:00 [facility] DIFFERENTIAL MAGNESIUM LEVEL 2022-10-12 07:23:00 [facility] PHOSPHORUS LEVEL 2022-10-12 07:23:00 [facility] ESTIMATED GFR 2022-10-12 07:23:00 [facility] LACTIC ACID LEVEL 2022-10-12 07:23:00 Rocky schwartz [facility] LDH 2022-10-12 07:23:00 Rocky schwartz ospital POC GLUCOSE 2022-10-12 06:49:00 Karis Hua spital O2 SATURATION, VENOUS 2022-10-12 03:13:00 Karlos Beaver [facility] POC GLUCOSE 2022-10-12 02:55:00 Karis Hua spital XR CHEST 1 VW PORTABLE 2022-10-12 02:06:11 [facility] POTASSIUM LEVEL 2022-10-12 01:41:00 [facility] PARTIAL THROMBOPLASTIN 2022-10-12 01:41:00 Dandre [facility] TIME (PTT) CV INTRA AORTIC BALLOON 2022-10-12 00:55:54 Karis Hua [facility] PUMP INSERTION BASIC METABOLIC PANEL 2022-10-11 23:07:00 Rocky schwartz [facility] MAGNESIUM LEVEL 2022-10-11 23:07:00 [facility] PHOSPHORUS LEVEL 2022-10-11 23:07:00 [facility] IONIZED CALCIUM 2022-10-11 23:07:00 [facility]aden [facility] ospital ESTIMATED GFR 2022-10-11 23:07:00 [facility] XR CHEST 1 VW PORTABLE 2022-10-11 23:00:38 Miller Reina [facility] POC GLUCOSE 2022-10-11 22:03:00 Karis Hua spital ECG 12-LEAD 2022-10-11 20:49:12 Hector Low [facility] LIDOCAINE LEVEL 2022-10-11 20:03:00 Manuel Kirby spital POC GLUCOSE 2022-10-11 17:52:00 Karis Hua spital CV SELECTIVE CORONARY 2022-10-11 16:54:39 Karis Hua [facility] ANGIOGRAPHY TRANSFUSE RED BLOOD CELLS 2022-10-11 16:01:00 Carmelita Scarcaterina [facility] Brianyeemilykumar XR CHEST 1 VW PORTABLE 2022-10-11 14:50:00 [facility] ABO AND RH CONFIRMATION BY 2022-10-11 14:06:00 Karis Hua [facility] PROTOCOL POC GLUCOSE 2022-10-11 13:57:00 Karis Hua spital METHICILLIN-RESISTANT 2022-10-11 11:07:00 [facility] STAPHYLOCOCCUS AUREUS (MRSA), KHAI COMPREHENSIVE METABOLIC 2022-10-11 11:07:00 [facility] PANEL MAGNESIUM LEVEL 2022-10-11 11:07:00 [facility] PHOSPHORUS LEVEL 2022-10-11 11:07:00 [facility] ESTIMATED GFR 2022-10-11 11:07:00 Rocky Sinha ospital PROCALCITONIN 2022-10-11 11:07:00 Beto Pastoriha [facility] IONIZED CALCIUM 2022-10-11 11:07:00 Tamra Lentz [facility] POC GLUCOSE 2022-10-11 11:06:00 Karis Hua spital URINE CULTURE 2022-10-11 09:04:00 Parmjit Armstrong [facility] O2 SATURATION, VENOUS 2022-10-11 07:50:00 [facility] COVID-19 QUALITATIVE 2022-10-11 07:44:00 [facility] RT-PCR LIDOCAINE LEVEL 2022-10-11 07:44:00 Manuel Kirby spital ARTERIAL BLOOD GAS 2022-10-11 07:44:00 [facility] CBC WITH PLATELET AND 2022-10-11 07:44:00 [facility] DIFFERENTIAL PROTHROMBIN TIME WITH INR 2022-10-11 07:44:00 [facility] PARTIAL THROMBOPLASTIN 2022-10-11 07:44:00 [facility] TIME (PTT) LACTIC ACID LEVEL 2022-10-11 07:44:00 [facility] SMEAR REVIEW 2022-10-11 07:44:00 Karis Hua spital POC GLUCOSE 2022-10-11 07:36:00 Karis Hua spital URINALYSIS SCREEN AND 2022-10-11 04:30:00 [facility] MICROSCOPY, WITH REFLEX TO CULTURE ARTERIAL BLOOD GAS 2022-10-11 02:50:00 [facility] POTASSIUM LEVEL 2022-10-11 02:50:00 [facility] MAGNESIUM LEVEL 2022-10-11 02:50:00 [facility] IONIZED CALCIUM 2022-10-11 02:50:00 [facility] PHOSPHORUS LEVEL 2022-10-11 02:50:00 [facility] POC GLUCOSE 2022-10-11 02:49:00 Karis Hua spital PARTIAL THROMBOPLASTIN 2022-10-11 00:39:00 KofiManuel agudelo [facility] TIME (PTT) O2 SATURATION, VENOUS 2022-10-11 00:39:00 [facility] [place] ARTL CATHJ/CANNULJ 2022-10-11 00:08:23 Miller Reina [facility] MNTR/TRANSFUSION SPX PRQ POC GLUCOSE 2022-10-10 23:39:00 Karis Hua spital XR CHEST 1 VW PORTABLE 2022-10-10 23:00:56 [facility] XR ABDOMEN 1 VW PORTABLE 2022-10-10 20:09:36 Rocky Sinha [facility] SPUTUM CULTURE 2022-10-10 19:45:00 [facility] Sin[facility] GRAM STAIN 2022-10-10 19:45:00 [facility] US CHEST 2022-10-10 19:01[facility]00 [facility] 2022-10-10 18:31:00 [facility] POC GLUCOSE 2022-10-10 18:28:00 Karis Hua spital TROPONIN T 2022-10-10 18:15:[address] [facility] LACTIC ACID LEVEL 2022-10-10 18:15:00 [facility] HEPATIC FUNCTION PANEL 2022-10-10 18:15:00 [facility] IONIZED CALCIUM 2022-10-10 18:15:00 Rocky Sinha ospital MAGNESIUM LEVEL 2022-10-10 18:15:00 [facility] PHOSPHORUS LEVEL 2022-10-10 18:15:00 efren Rocky [facility] POTASSIUM LEVEL 2022-10-10 18:15:00 Rocky Sinha ospital XR TUBE PLACEMENT CHEST 2022-10-10 17:47:31 Rocky Sinha [facility] ABD 1 VW PORTABLE US DUPLEX VENOUS LOWER 2022-10-10 17:39:00 [facility] EXTREMITY BILATERAL [place] TTE COMPLETE, WO CONTRAST, 2022-10-10 17:00:00 [facility] W DOPPLER ([id number]) [place] BLOOD CULTURE, AEROBIC & 2022-10-10 16:13:00 Rocky Sinha [facility] ANAEROBIC CBC WITH PLATELET AND 2022-10-10 15:51:00 Manuel Kirby [facility] DIFFERENTIAL SMEAR REVIEW 2022-10-10 15:51:00 Manuel Kirby spital BLOOD CULTURE, AEROBIC & 2022-10-10 15:37:00 Rocky Sinha [facility] ANAEROBIC TYPE AND SCREEN 2022-10-10 14:53:00 Brian Silva [facility] ARTERIAL BLOOD GAS 2022-10-10 14:53:00 [facility] 2022-10-10 14:53:[address] [facility] BASIC METABOLIC PANEL 2022-10-10 14:44:00 [facility] MAGNESIUM LEVEL 2022-10-10 14:44:00 [facility] PHOSPHORUS LEVEL 2022-10-10 14:44:00 [facility] TROPONIN T 2022-10-10 14:44:00 [facility] ESTIMATED GFR 2022-10-10 14:44:00 [facility] B NATRIURETIC PEPTIDE 2022-10-10 14:44:00 [facility] LACTIC ACID LEVEL 2022-10-10 14:44:00 [facility] LIPID PANEL 2022-10-10 14:44:00 [facility] 2022-10-10 14:44:[address] [facility] O2 SATURATION, VENOUS 2022-10-10 14:44:00 [facility] XR CHEST 1 VW PORTABLE 2022-10-10 14:25:00 [facility] POC GLUCOSE 2022-10-10 14:10:00 Karis Hua spital NE AN ELECTIVE 2022-10-10 13:53:00 Ac Phillips spital ENDOTRACHEAL AIRWAY [employer] MAGNESIUM LEVEL 2022-10-10 13:36:00 Marlo Conde [facility] BASIC METABOLIC PANEL 2022-10-10 13:36:00 Karis Hua [facility] CBC WITH PLATELET AND 2022-10-10 13:36:00 [facility] DIFFERENTIAL PROTHROMBIN TIME WITH INR 2022-10-10 13:36:00 [facility] PARTIAL THROMBOPLASTIN 2022-10-10 13:36:00 [facility] TIME (PTT) ESTIMATED GFR 2022-10-10 13:36:00 Karis Hua spital SMEAR REVIEW 2022-10-10 13:36:00 James Berg [facility] POC GLUCOSE 2022-10-10 13:25:00 Karis Hua spital BASIC METABOLIC PANEL 2022-10-10 06:38:00 [facility] CBC WITH PLATELET AND 2022-10-10 06:38:00 Karis Hua [facility] DIFFERENTIAL ESTIMATED GFR 2022-10-10 06:38:00 [facility] SMEAR REVIEW 2022-10-10 06:38:00 Karis Hua spital MAGNESIUM LEVEL 2022-10-10 06:37:00 [facility] POTASSIUM LEVEL 2022-10-10 06:37:00 [facility] ECG 12-LEAD 2022-10-10 03:22:55 Karis Hua spital POC GLUCOSE 2022-10-10 03:17:00 Karis Hua spital OCCULT BLOOD, STOOL 2022-10-10 01:45:00 [facility] 2022-10-10 00:50:00 Ruthy Luna [facility] POC GLUCOSE 2022-10-09 22:17:00 Karis Hua spital POC GLUCOSE 2022-10-09 17:05:00 Karis Hua spital CV MRI FUNCTION VIABILITY 2022-10-09 16:42:38 Roxana Malloy [facility] CHF EVALUATION Lucio BASIC METABOLIC PANEL 2022-10-09 10:00:00 [facility] CBC WITH PLATELET AND 2022-10-09 10:00:00 Karis Hua [facility] DIFFERENTIAL MAGNESIUM LEVEL 2022-10-09 10:00:00 Karis Hua spital ESTIMATED GFR 2022-10-09 10:00:00 [facility] SMEAR REVIEW 2022-10-09 10:00:00 Karis Hua spital POC GLUCOSE 2022-10-09 02:57:00 Karis Hua Ho spital POC GLUCOSE 2022-10-08 23:49:00 Karis Hua spital POC GLUCOSE 2022-10-08 22:35:00 Karis Hua spital BASIC METABOLIC PANEL 2022-10-08 20:08:00 [facility] MAGNESIUM LEVEL 2022-10-08 20:08:00 Antonietta [place] spital Lyn ESTIMATED GFR 2022-10-08 20:08:00 Karis Hua spital POC GLUCOSE 2022-10-08 18:43:00 Karis Hua spital POC GLUCOSE 2022-10-08 18:03:00 Karis Hua spital POC GLUCOSE 2022-10-08 14:32:00 Karis Hua spital POC GLUCOSE 2022-10-08 13:14:00 Karis Hua spital TESTOSTERONE LEVEL, FREE 2022-10-08 11:31:00 Karis Hua [facility] AND TOTAL, MALE ESTRADIOL LEVEL 2022-10-08 11:31:00 Karis Hua spital CBC WITH PLATELET AND 2022-10-08 11:31:00 Karis Hua [facility] DIFFERENTIAL BASIC METABOLIC PANEL 2022-10-08 11:31:00 Karis Hua [facility] MAGNESIUM LEVEL 2022-10-08 11:31:00 Karis Hua spital ESTIMATED GFR 2022-10-08 11:31:00 Karis Hua spital SMEAR REVIEW 2022-10-08 11:31:00 Karis Hua spital ESTIMATED GFR 2022-10-08 09:26:00 [facility] POC [facility]UCOSE 2022-10-08 03:50:00 Karis Hua spital TTE COMPLETE, W CONTRAST, 2022-10-07 23:32:07 [facility] D[facility] ([id number][facility] POC GLUCOSE 2022-10-07 23:16:00 Karis Hua Ho spital BASIC METABOLIC PANEL 2022-10-07 22:28:00 Antonietta Montana [facility] Lyn MAGNESIUM LEVEL 2022-10-07 22:28:00 Antonietta Montana Ho spital Lyn ESTIMATED GFR 2022-10-07 22:28:[address] ABDOMEN PELVIS W 2022-10-07 21:34:08 Jim Posada [facility] CONTRAST POC GLUCOSE 2022-10-07 17:33:00 Karis Hua Ho spital POC GLUCOSE 2022-10-07 13:31:00 Karis Hua spital CBC WITH PLATELET AND 2022-10-07 08:53:00 [facility] BASIC METABOLIC PANEL 2022-10-07 08:53:00 [facility] MAGNESIUM LEVEL 2022-10-07 08:53:00 Karsi Hua spital B NATRIURETIC PEPTIDE 2022-10-07 08:53:00 Neyda Carvalho [facility] ESTIMATED GFR 2022-10-07 08:53:00 Karis Hua spital SMEAR REVIEW 2022-10-07 08:53:00 Karis Hua Ho spital POC GLUCOSE 2022-10-07 03:04:00 Karis Hua spital POC GLUCOSE 2022-10-06 23:19:00 Karis Hua Ho spital POC GLUCOSE 2022-10-06 18:00:00 Karis Hua spital ECG 12-LEAD 2022-10-06 15:31:23 Jenniffer Adam H ospital POC GLUCOSE 2022-10-06 13:44:00 Karis Hua spital CBC WITH PLATELET AND 2022-10-06 10:19:00 Jair [facility] DIFFERENTIAL BASIC METABOLIC PANEL 2022-10-06 10:19:00 [facility] LEVEL 2022-10-06 10:19:00 Jenniffer Adam H ospital PROTHROMBIN TIME WITH INR 2022-10-06 10:19:00 [facility] PARTIAL THROMBOPLASTIN 2022-10-06 10:19:00 [facility] TIME (PTT) B NATRIURETIC PEPTIDE 2022-10-06 10:19:00 [facility] PHOSPHORUS LEVEL 2022-10-06 10:19:00 [facility] HEPATIC FUNCTION PANEL 2022-10-06 10:19:00 [facility] LACTIC ACID LEVEL 2022-10-06 10:19:00 [facility] HEMOGLOBIN A1C 2022-10-06 10:19:00 [facility] ESTIMATED GFR 2022-10-06 10:19:00 [facility] LACTIC ACID LEVEL, SEPSIS 2022-10-06 05:39:00 [facility] 2X EVERY 3 HOURS POC GLUCOSE 2022-10-06 04:12:[address] [facility] TOTAL IRON BINDING 2022-10-06 03:28:00 [facility] CAPACITY FERRITIN LEVEL 2022-10-06 03:28:00 [facility] ospital FOLATE LEVEL 2022-10-06 03:28:00 [facility] ospital VITAMIN B12 LEVEL 2022-10-06 03:28:00 [facility] THYROID STIMULATING 2022-10-06 03:28:00 [facility] HORMONE T4, FREE 2022-10-06 03:28:00 [facility] ospital ECG 12-LEAD 2022-10-06 01:59:26 [facility] COVID-19 QUALITATIVE 2022-10-06 01:28:00 [facility] RT-PCR LACTIC ACID LEVEL, SEPSIS 2022-10-06 01:28:00 [facility] - NOW AND REPEAT 2X EVERY 3 HOURS TROPONIN T 2022-10-06 01:28:00 [facility] ECG ED PRELIMINARY 2022-10-06 00:28:56 [facility] INTERPRETATION US DUPLEX VENOUS LOWER 2022-10-05 23:10:00 [facility] EXTREMITY BILATERAL XR CHEST 1 VW PORTABLE 2022-10-05 22:26:00 [facility] CBC WITH PLATELET AND 2022-10-05 22:10:00 [facility] DIFFERENTIAL COMPREHENSIVE METABOLIC 2022-10-05 22:10:00 [facility] PANEL TROPONIN T 2022-10-05 22:10:00 [facility] B NATRIURETIC PEPTIDE 2022-10-05 22:10:00 [facility] ESTIMATED GFR 2022-10-05 22:10:00 [facility] LACTIC ACID LEVEL, SEPSIS 2022-10-05 22:10:00 [facility] - NOW AND REPEAT 2X EVERY 3 HOURS SMEAR REVIEW 2022-10-05 22:10:00 [facility] ECG 12-LEAD 2022-10-05 21:43:05 [facility] TTE COMPLETE, WO CONTRAST, 2022-09-15 15:58:37 [facility] W DOPPLER ([id number]) TTE COMPLETE, W CONTRAST, 2022-04-21 15:29:52 [facility] W DOPPLER ([id number]) ECG 12-LEAD 2022-04-11 14:47:29 [facility] Ho spital POCT-GLUCOSE METER 2022-02-10 11:18:00 [facility] POCT-GLUCOSE METER 2022-02-10 06:15:00 [facility] BASIC METABOLIC PANEL 2022-02-10 04:30:00 [facility] CBC W/PLT COUNT & AUTO 2022-02-10 04:30:00 [facility] MAGNESIUM 2022-02-10 04:30:00 [facility] CBC W/PLT COUNT & AUTO 2022-02-10 04:30:[address] [facility] POCT-GLUCOSE METER 2022-02-10 00:23:00 [facility] POCT-GLUCOSE METER 2022-02-09 20:26:00 [facility] POCT-GLUCOSE METER 2022-02-09 16:29:00 [facility] CATHETERIZATION, HEART, 2022-02-09 11:47:00 Valerie Caballero [facility] POCT-GLUCOSE METER 2022-02-09 06:55:00 [facility] TSH/FREE T4 IF INDICATED 2022-02-09 05:26:00 Rosie Ordonez ru [facility] BASIC METABOLIC PANEL 2022-02-09 05:26:00 [facility] CBC W/PLT COUNT & AUTO 2022-02-09 05:26:[address] [facility] HEPATIC FUNCTION PANEL 2022-02-09 05:26:00 [facility] MAGNESIUM 2022-02-09 05:26:00 [facility] CBC W/PLT COUNT & AUTO 2022-02-09 05:26:00 Snell [facility] POCT-GLUCOSE METER 2022-02-08 20:28:00 [facility] POCT-GLUCOSE METER 2022-02-08 16:23:00 [facility] TROPONIN I 2022-02-08 13:06:00 Rosie Ordoneziru [facility] POCT-GLUCOSE METER 2022-02-08 11:43:00 [facility] URINALYSIS W/ REFLEX URINE 2022-02-08 11:04:00 Monika Snell [facility] C. DIFFICILE GDH TOXIN 2022-02-08 11:04:00 Monika Snell [facility] GI PATHOGEN PROFILE BY PCR 2022-02-08 11:04:00 Monika Snell [facility] 2D ECHO W/ DOPPLER 2022-02-08 09:13:40 Monika Snell [facility] (CW/PW/COLOR) [facility] ECG 12-LEAD 2022-02-08 06:35:27 Unknown, [facility] XR CHEST 1 VIEW PORTABLE / 2022-02-08 06:24:00 Rosie Ordonez [facility] BEDSIDE [facility] FERRITIN 2022-02-08 05:37:00 Mery [facility] B-TYPE NATRIURETIC FACTOR 2022-02-08 05:37:00 Mery [facility] (BNP) [facility] CBC W/PLT COUNT & AUTO 2022-02-08 05:37:00 Mery [facility] (MANUAL DIFFERENTIAL) 2022-02-08 05:37:00 [facility] BLOOD CULTURE 2022-02-08 05:37:00 Bryce [facility] COMPREHENSIVE METABOLIC 2022-02-08 05:37:00 Bryce [facility] HEMOGLOBIN A1C 2022-02-08 05:37:00 [facility] PROTHROMBIN TIME/INR 2022-02-08 05:37:00 Bryce [facility] LIPID PANEL 2022-02-08 05:37:00 Bryce [facility] MAGNESIUM 2022-02-08 05:37:00 Mery [facility] PHOSPHORUS 2022-02-08 05:37:00 [facility] TROPONIN I 2022-02-08 05:37:00 [facility] CBC W/PLT COUNT & AUTO 2022-02-08 05:37:00 [facility] DIFFERENTIAL [facility] PROCALCITONIN 2022-02-08 05:37:00 [facility] LACTIC ACID, VENOUS 2022-02-08 05:37:00 [facility] IRON, TIBC, % SAT. 2022-02-08 05:37:00 [facility] (WITHOUT FERRITIN) [facility] Cent[facility] r POCT-GLUCOSE METER 2022-02-08 05:26:00 [facility] CARDIAC CATH REPORT - SCAN 2022-02-08 00:00:00 ProviderSlava [facility] EKG-SCANNED 2022-02-08 00:00:00 Provider, Slava [facility] Plan of Care Planned Activity Planned Date Details Comments Source Future Scheduled 2025-02-[address] [facility] 00:[facility]:00 (procedure) [code = [facility] [id number]] Future Scheduled 2025-02-[address] [facility] 00:00:00 (procedure) [code = [facility] [id number]] Future Scheduled 2025-02-[address] [facility] Test 00:00:00 (procedure) [code = [facility] [id number]] Future Scheduled 2025-02-[address] [facility] Test 00:00:00 (procedure) [code = [facility] [id number]] Future Scheduled 2023-06-[address] [facility] Test 00:00:00 (Season Ended) [code = [facility] INFLUENZA VACCINE (Season Ended)] Future Scheduled 2023-02-[address] [...] Screening (12+)] Future Scheduled 2022-12-11 Pneumococcal Vaccine: [facility] Test 09:25:54 Pediatrics (0 to 5 Years) and At-Risk Patients (6 to 64 Years) (1 - PCV) [code = Pneumococcal Vaccine: Pediatrics (0 to 5 Years) and At-Risk Patients (6 to 64 Years) (1 - PCV)] Future Scheduled 2022-12-11 Hepatitis C screening [facility] Test 09:25:54 (procedure) [code = [id number]] Future Scheduled 2022-12-11 COLONOSCOPY SCREENING [facility] Test 09:25:54 [code = COLONOSCOPY SCREENING] Future Scheduled 2022-12-11 SHINGLES VACCINES (1 Met [facility] Test 09:25:54 of 2) [code = SHINGLES VACCINES (1 of 2)] Future Scheduled 2022-12-11 COVID-19 VACCINE (4 - [facility] Test 09:25:54 Booster for Pfizer series) [code = COVID-19 VACCINE (4 - Booster for Pfizer series)] Future Scheduled 2022-12-11 INFLUENZA VACCINE [facility] Test 09:25:54 [code = INFLUENZA VACCINE] Future Scheduled 2022-12-11 DIABETIC FOOT EXAM [facility] Test 09:25:54 [code = DIABETIC FOOT EXAM] Future Scheduled 2022-12-11 DIABETES: RETINAL EYE [facility] Test 09:25:54 EXAM [code = DIABETES: RETINAL EYE EXAM] Future Scheduled 2022-11-01 Pneumococcal Vaccine: [facility] Test 13:17:37 Pediatrics (0 to 5 Years) and At-Risk Patients (6 to 64 Years) (1 - PCV) [code = Pneumococcal Vaccine: Pediatrics (0 to 5 Years) and At-Risk Patients (6 to 64 Years) (1 - PCV)] Future Scheduled 2022-11-01 DIABETIC FOOT EXAM [facility] Test 13:17:37 [code = DIABETIC FOOT EXAM] Future Scheduled 2022-11-01 Hepatitis C screening [facility] Test 13:17:37 (procedure) [code = 388712493] Future Scheduled 2022-11-01 COLONOSCOPY SCREENING [facility] Test 13:17:37 [code = COLONOSCOPY SCREENING] Future Scheduled 2022-11-01 SHINGLES VACCINES (1 Met [facility] Test 13:17:37 of 2) [code = SHINGLES VACCINES (1 of 2)] Future Scheduled 2022-11-01 COVID-19 VACCINE (4 - [facility] Test 13:17:37 Booster for Pfizer series) [code = COVID-19 VACCINE (4 - Booster for Pfizer series)] Future Scheduled 2022-11-01 INFLUENZA VACCINE Method [facility] Test 13:17:37 [code = INFLUENZA VACCINE] Future Scheduled 2022-11-01 DIABETES: RETINAL EYE [facility] Test 13:17:37 EXAM [code = DIABETES: RETINAL EYE EXAM] Future Scheduled 2022-10-[address] [facility] Test 00:00:00 (12+) [code = Medical Center DEPRESSION SCREENING (12+)] Future Scheduled 2022-10-[address] [facility] Test 00:00:00 (12+) [code = Medical Center DEPRESSION SCREENING (12+)] Future Scheduled 2022-09-27 HEPATITIS B VACCINES Met [facility] Test 08:29:57 (1 of 3 - 3-dose series) [code = HEPATITIS B VACCINES (1 of 3 - 3-dose series)] Future Scheduled 2022-09-27 Pneumococcal Vaccine: [facility] Test 08:29:57 Pediatrics (0 to 5 Years) and At-Risk Patients (6 to 64 Years) (1 - PCV) [code = Pneumococcal Vaccine: Pediatrics (0 to 5 Years) and At-Risk Patients (6 to 64 Years) (1 - PCV)] Future Scheduled 2022-09-27 Hepatitis C screening [facility] Test 08:29:57 (procedure) [code = 056883967] Future Scheduled 2022-09-27 COLONOSCOPY SCREENING [facility] Test 08:29:57 [code = COLONOSCOPY SCREENING] Future Scheduled 2022-09-27 SHINGLES VACCINES (1 Met [facility] Test 08:29:57 of 2) [code = SHINGLES VACCINES (1 of 2)] Future Scheduled 2022-09-27 COVID-19 VACCINE (3 - [facility] 08:29:57 Booster for Pfizer series) [...] 00:00:00 measurement Medical [facility] (procedure) [code = 67503842] Future Scheduled 2022-05-[address] [facility] (procedure) [code = 45644285] Future Scheduled 2022-05-[address] [facility] [facility] 00[facility] (procedure) [code = 66649861] Future Scheduled 2022-05-[address] [facility] 00[facility]00 [facility] (procedure) [code = 16625287] Future Scheduled 2021-07-18 COVID-19 VACCINE (3 - [...] - Booster for Pfizer series)] Future Scheduled 2021-04-12 COVID-19 VACCINE (3 - [facility] [...] 00:00:00 examination Medical Center (regime/therapy) [code = 990623351] Future Scheduled 1978 Urine screening for [facility] Test 00:00:00 protein (procedure) Medical Center [code = 477895394] Future Scheduled 1978 DIABETIC EYE EXAM [facility] Test 00:00:00 [code = DIABETIC EYE Medical Center EXAM] Future Scheduled [address] [facility] 00:[facility]00 examination Medical Center (regime/therapy) [code = 806801352] Future Scheduled 1978 Urine screening for [facility] Test 00:00:00 protein (procedure) Medical Center [code = 113901446] Future Scheduled 1978 DIABETIC EYE EXAM [facility] Test 00:00:00 [code = DIABETIC EYE Medical Center EXAM] Future Scheduled [address] [facility] 00:00:00 examination Medical Center (regime/therapy) [code = 575996488] Future Scheduled 1978 Urine screening for [facility] Test 00:00:00 protein (procedure) Medical Center [code = 788668615] Future Scheduled 1978 DIABETIC EYE EXAM [facility] 00:00:00 [code = DIABETIC EYE Medical Center EXAM] Future Scheduled [address] [facility] 00:00:00 examination Medical Center (regime/therapy) [code = 350018562] Future Scheduled 1978 Urine screening for [facility] Test 00:00:00 protein (procedure) Medical Center [code = 671964172] Future Scheduled [address] [...] Medica l Center colon (procedure) [code = 466470416] Future Scheduled [address] [facility] 00:00:00 malignant neoplasm of Medica [facility] Center colon (procedure) [code = 823255263] Future Scheduled [address] [facility] 00:00:00 malignant neoplasm [facility] colon (procedure) [code = 820038843] Future Scheduled [address] [facility] 00:00:00 malignant neoplasm of [facility] Center colon (procedure) [code = 752821487] Future Scheduled 1968 Sigmoidoscopy [[facility] [address] 00:00:00 (combo) [code = CT Medical C enter Colonography (combo)] Future Scheduled [address] [facility] 00:00:00 malignant neoplasm of [facility] Center colon (procedure) [code = 522823956] Future Scheduled [address] [facility] 00:00:00 malignant neoplasm of [facility] Center colon (procedure) [code = 794612817] Future Scheduled [address] [facility] 00:00:00 malignant neoplasm of [facility] Center colon (procedure) [code = 188248285] Future Scheduled [address] [facility] 00:00:00 malignant neoplasm of [facility] Center colon (procedure) [code = 634516314] Future Scheduled 1968 Sigmoidoscopy [facility]code [facility] S[facility]oscopy] Medical Rodrigueze r Future Scheduled [address] [facility] 00:00:00 (combo) [code = CT Medical C enter Colonography (combo)] Future Scheduled [address] [facility] 00:00:00 malignant neoplasm of [facility] Center colon (procedure) [code = 364628390] Future Scheduled [address] [facility] [facility] 00:00:00 malignant neoplasm of [facility] Center colon (procedure) [code = 535703857] Future Scheduled [address] [facility] 00:00:00 malignant neoplasm of [facility] Center colon (procedure) [code = 370683161] Future Scheduled [address] [facility] 00:00:00 malignant neoplasm of [facility]ica [facility] Center colon (procedure) [code = 508768206] Future Scheduled 1968 Sigmoidoscopy [facility]code [facility] Sigmoidoscopy] Medical Rodrigueze r Future Scheduled [address] [facility] 00:00:00 (combo) [code = CT Medical C enter Colonography (combo)] Future Scheduled [address] [facility] [facility] 00[facility]00:00 malignant neoplasm of [facility] Center colon (procedure) [code = 333792522] Future Scheduled [address] [facility] 00:00:00 malignant neoplasm of [facility] Center colon (procedure) [code = 707204871] Future Scheduled [address] [facility] 00:00:00 malignant neoplasm of [facility] Center colon (procedure) [code = 535188715] Future Scheduled [address] [facility] 00:00:00 malignant neoplasm of Medica [facility] Center colon (procedure) [code = 021341636] Future Scheduled 1968 Sigmoidoscopy [facility] S[facility]oscopy] Medical Cente r Encounters Start End Encounter Admission Attending Care Care Encounter Source Date/Time Date/Time Type Type Clinicians Facility Department ID [id number] 10:59:54 [id number] [facility] 2021-08-04 Outpatient [facility], [facility] Surgery [id number] [facility] 11:20:52 ETTA 2023-03-23 2023-04-04 Inpatient SANCHEZ, [facility] [id number] 78 [place] 00:00:00 00:00:00 DONNY 296 Method i 2023-03-27 2023-03-27 Inpatient REINA, [facility] [id number] [place] 00:00:00 00:00:00 JESUS 395 Method i 2023-02-20 2023-02-20 Outpatient RASHI, [facility] [id number] [place] 00:00:00 00:00:00 DEEPAM 278 Method i 2023-02-20 2023-02-20 Outpatient REINA, [facility] [id number] 106 [place] 00:00:00 00:00:00 JESUS 574 Method i 2023-02-19 2023-02-19 Outpatient KENNY, [facility] [id number] 76340 [place] 00:00:00 00:00:00 KOJO 218 Method i 2023-02-19 2023-02-19 Outpatient DAWOODKYLEE, [facility] [id number] 86074 [place] 00:00:00 00:00:00 KOJO 746 Method i 2023-02-14 2023-02-14 Outpatient [facility] [id number] [place] 00:00:00 00:00:00 506 Method i 2023-02-13 2023-02-13 Outpatient REINA, [facility] [id number] [place] 00:00:00 00:00:00 JESUS 667 Method i 2023-02-01 2023-02-01 Outpatient KENNY, [facility] [id number] [id number] [place] 00:00:00 00:00:00 KOJO 810 Method i 2023-02-01 2023-02-01 Outpatient KENNY, [facility] [id number] [id number] [place] 00:00:00 00:00:00 KOJO [address] 2023-02-01 2023-02-01 Outpatient KENNY, [facility] [id number] [place] 00:00:00 00:00:00 KOJO [address] 2023-01-15 2023-01-15 Outpatient JOHN NAVARRETE [facility] [id number] [facility] 00:00:00 00:00:00 ETTA mccray of Medicin e 2023-01-11 2023-01-11 Outpatient [facility] [id number] [place] 00:00:00 00:00:00 150 Method i 2022-12-11 2022-12-29 Inpatient SANCHEZ, [facility] 060 [id number] 75 [place] 00:00:00 00:00:00 DONNY 128 Method i 2022-12-12 2022-12-12 Outpatient REDDY, [facility] [id number] [place] 00:00:00 00:00:00 ROBIN 883 Method i 2022-12-12 2022-12-12 [facility] [id number] 668 [place] 00:00:00 00:00:00 ROBIN 449 Method i 2022-12-11 2022-12-11 Travel 1.2.840.1 1.2.330.722 9852 [id number] Methodi 00:00:00 00:00:[address] 3.430.2.7 0.2.7.3.698 Ho spita .3.574832 084.8 l .8 2022-12-08 2022-12-08 Orders Chiara, 1.2.840.1 [id number] 2100 [id number] Methodi 00:00:00 00:00:00 Only Megan 72380.1.[address] 3.430.2.7 Hospit a .3.167682 l .8 2022-12-08 2022-12-08 Documentat Chiara, 1.2.840.1 [id number] 2 [id number] Methodi 00:00:00 00:00:00 ion Megan 52314.1.[address] 3.430.2.7 Hospit a .3.802711 l .8 2022-12-08 2022-12-08 Telephone Delos 1.2.840.1 [id number] 2099 [id number] Methodi 00:00:00 00:00:00 [place], [address].1.[address] Aniyah 3.430.2.7 Hospit a .3.143765 l .8 2022-12-08 2022-12-08 Travel 1.2.840.1 1.2.026.696 3644 [id number] Methodi 00:00:00 00:00:[address] 3.430.2.7 0.2.7.3.698 Ho spita .3.369522 084.8 l .8 2022-12-07 2022-12-07 Outpatient REDDY, [facility] [id number] [place] 00:00:00 00:00:00 ROBIN [address] 2022-12-07 2022-12-07 Documentat Marcos, 1.2.840.1 [id number] Methodi 00:00:00 00:00:00 ion [address]ie 25199.1.[address] 3.430.2.7 Hospit a .3.758012 l .8 2022-12-04 2022-12-04 Outpatient LATOSHA, [facility] [id number] 849 [place] 00:00:00 00:00:00 JESUS [address] 2022-12-04 2022-12-04 Travel 1.2.840.1 1.2.299.162 4425 400037 Methodi 00:00:00 00:00:[address] 3.430.2.7 0.2.7.3.698 Ho spita .3.862222 084.8 l .8 2022-12-01 2022-12-01 Telephone Rashi, 1.2.840.1 [id number] 2 [id number] Methodi 00:00:00 00:00:[address] Kimo 3.430.2.7 Hospit a .3.724585 l .8 2022-11-30 2022-11-30 Lab Adam, 1.2.840.1 [id number] 05625 89312 Methodi 07:05:00 07:10:[address] 3.430.2.7 Hospit a .3.358632 l .8 2022-11-29 2022-11-29 Lab Reddy, 1.2.840.1 [id number] 4686 Methodi 16:20:00 16:25:[address] 3.430.2.7 Hospit a .3.197206 l .8 2022-11-29 2022-11-29 Office Robin Reddy 1.2.840.1 [id number] Methodi 15:00:00 16:22:30 Visit Megan Guadarrama 75859.1.[address] 3.430.2.7 Hospit a .3.604263 l .8 2022-11-29 2022-11-29 Telephone Chiara, 1.2.840.1 [id number] 21 [id number] Methodi 00:00:00 00:00:[address] 3.430.2.7 Hospit a .3.289710 l .8 2022-11-28 2022-11-28 Office Latosha, 1.2.840.1 [id number] 9205 Methodi 09:30:00 15:49:40 Visit Jesus Silveira 39687.1.[address] 3.430.2.7 Hospit a .3.905389 l .8 2022-11-28 2022-11-28 Travel 1.2.840.1 1.2.754.176 1745 [id number] Methodi 00:00:00 00:00:[address] 3.430.2.7 0.2.7.3.698 Ho spita .3.012425 084.8 l .8 2022-11-22 2022-11-22 Office Rashi, 1.2.840.1 [id number] 062 [id number] Methodi 09:30:00 09:54:40 Visit Deepcharlotte 98649.1.[address] Kimo 3.430.2.7 Hospit a .3.038424 l .8 2022-11-20 2022-11-20 Telephone Rashi, 1.2.840.1 [id number] 2 [id number] Methodi 00:00:00 00:00:[address] Kmio 3.430.2.7 Hospit a .3.809869 l .8 2022-10-31 2022-10-31 Office Latosha 1.2.840.1 [id number] 032213 2664 Methodi 10:20:00 12:59:16 Visit Jesus Silveira 44459.1.[address] 3.430.2.7 Hospit a .3.251685 l .8 2022-10-31 2022-10-31 Travel 1.2.840.1 1.2.159.440 4171 [id number] Methodi 00:00:00 00:00:[address] 3.430.2.7 0.2.7.3.698 Ho spita .3.454644 084.8 l .8 2022-10-05 2022-10-26 [facility] KOJO TUCKER [facility] 060 [id number] [place] 00:00:00 00:00:00 Encounter [address] 2022-10-13 2022-10-13 Surgery Marco 1.2.840.1 [id number] 08023 11344 Methodi 11:35:00 13:05:00 Derek Ross 94212.1.[address] 3.430.2.7 Hospit a .3.821833 l .8 2022-10-13 2022-10-13 Anesthesia Marshall Gage 1.2.840.1 [id number] Methodi 11:15:00 11:47:00 Event Omayra Owens 71025.1.[address] 3.430.2.7 Hospit a .3.552759 l .8 2022-10-11 2022-10-11 Surgery Latosha, 1.2.840.1 [id number] 3028 Methodi 17:17:00 18:37:00 Jesus R[address] 81168.1.[address] 3.430.2.7 Hospit a .3.373056 l .8 2022-10-11 2022-10-11 Surgery Latosha, 1.2.840.1 [id number] 6148 Methodi 09:47:00 11:07:00 Jesus R[address] 91020.1.[address] 3.430.2.7 Hospit a .3.918975 l .8 2022-10-10 2022-10-10 Anesthesia [place], 1.2.840.1 [id number] 21 [id number] Methodi 07:52:57 07:52:57 [place] [address]394.1.[address] [facility] 3.430.2.7 Hosp korina .3.423330 l .8 2022-09-26 2022-09-26 Office Reina, 1.2.840.1 [id number] 7638 Methodi 10:00:00 13:47:03 Visit Jesus Silveira 34078.1.[address] 3.430.2.7 Hospit a .3.495856 l .8 2022-09-26 2022-09-26 Travel 1.2.840.1 1.2.838.335 0922 215220 Methodi 00:00:00 00:00:[address] 3.430.2.7 0.2.7.3.698 Ho spita .3.328863 084.8 l .8 2022-09-15 2022-09-15 [facility] [id number] 502 [place] 00:00:00 00:00:00 JESUS [address] 2022-09-15 2022-09-15 Travel 1.2.840.1 1.2.016.980 5194 [id number] Methodi 00:00:00 00:00:[address] 3.430.2.7 0.2.7.3.698 Ho spita .3.437626 084.8 l .8 2022-09-12 2022-09-12 Telephone Ariana, 1.2.840.1 [id number] 779 [id number] Methodi 00:00:00 00:00:[address] 3.430.2.7 Hospit a .3.425824 l .8 2022-08-02 2022-08-02 Orders Ab Pierre 1.2.840.1 [id number] 2099 [id number] Methodi 00:00:00 00:00:[address] 3.430.2.7 Hospit a .3.494689 l .8 2022-07-13 2022-07-13 Outpatient JOHN NAVARRETE [facility] [id number] [facility] 07:40:38 09:49:03 ETTA Richardson 2022-07-11 2022-07-11 Office Latosha 1.2.840.1 [id number] 9019 Methodi 10:00:00 10:10:00 Visit Jesus ScanlonBraden 86350.1.[address] 3.430.2.7 Hospit a .3.381579 l .8 2022-07-11 2022-07-11 Travel 1.2.840.1 1.2.577.338 8799 973379 Methodi 00:00:00 00:00:[address] 3.430.2.7 0.2.7.3.698 Ho spita .3.659768 084.8 l .8 2022-04-21 2022-04-21 Travel 1.2.840.1 1.2.377.459 3570 651899 Methodi 00:00:00 00:00:[address] 3.430.2.7 0.2.7.3.698 Ho spita .3.596972 084.8 l .8 2022-04-21 2022-04-21 Outpatient LATOSHA [facility] [id number] 165 [place] 00:00:00 00:00:00 JESUS [address] 2022-04-11 2022-04-11 Office Reina, 1.2.840.1 [id number] 4413 Methodi 10:15:00 14:56:42 Visit Jesus Silveira 47425.1.[address] 3.430.2.7 Hospit a .3.169907 l .8 2022-04-11 2022-04-11 Travel 1.2.840.1 1.2.328.901 6305 753335 Methodi 00:00:00 00:00:[address] 3.430.2.7 0.2.7.3.698 Ho spita .3.477406 084.8 l .8 2022-02-28 2022-02-28 Travel 1.2.840.1 1.2.136.311 9218 924803 Methodi 00:00:00 00:00:[address] 3.430.2.7 0.2.7.3.698 Ho spita .3.884168 084.8 l .8 2022-02-08 2022-02-10 [facility] [address] [id number] [facility] 04:45:00 15:44:00 KASSON 2022-02-08 2022-02-10 Hospital ER Rosie Ordonez [facility] [id number] [facility] 04:45:00 15:44:00 Encounter Monika Snell [facility] 2022-02-09 2022-02-09 Surgery [facility] [id number] 12:00:00 13:02:00 [facility] 2022-02-08 2022-02-08 Orders [facility] [id number] 00:00:00 00:00:00 Only [facility] 2022-02-08 2022-02-08 Travel [facility] [id number] [facility] 00:00:00 00:00:00 [facility] 2022-02-07 2022-02-07 Documentat Mery [facility] [id number] [facility] 00:00:00 00:00:00 ion Rosie [facility] 2022-01-12 2022-01-12 Outpatient JOHN NAVARRETE [facility] [id number] [facility] 09:03:23 10:36:32 ETTA Johnson e of Medicin e 2021-07-14 2021-07-14 Outpatient JOHN NAVARRETE [facility] [id number] [facility] 08:05:04 09:20:35 ETTA Johnson e of Medicin e 2020-10-12 2020-10-12 Outpatient [facility] [id number] [facility] 00:00:00 00:00:00 2020-03-15 2020-03-15 Outpatient [facility] 30 [id number] [facility] 08:30:00 08:30:00 [facility] 2019-11-24 2019-11-24 Outpatient [facility] 29 [id number] Common 09:12:00 09:12:00 t [facility] 2019-11-10 2019-11-10 Outpatient [facility] 28 [id number] Common 09:00:00 09:00:00 t [facility] Results Test Description Test Time Test Comments Results Result Comments Source SARS-CoV-2 (COVID-19) RNA [Presence] in Respiratory sp ecimen by 2023-03-28 00:05:12 KHAI with probe detection Test Item Value Reference Range Interpretation Comme nts SARS-CoV-2 (COVID-19) RNA [Presence] in Respiratory specimen by Not detected KHAI with probe detection (test code = 28042-6) Whether patient is employed in a healthcare setting (test code = Un known 80795-4) Whether the patient has symptoms related to condition of interest U nknown (test code = 28907-3) Whether the patient was hospitalized for condition of interest Unkn own (test code = 23463-9) Whether the patient was admitted to intensive care unit (ICU) for U nknown condition of interest (test code = 74976-3) Whether patient resides in a congregate care setting (test code = U nknown 65937-1) status (test code = 17379-2) Unknown Date and time of symptom onset (test code = 20998-1) Unknown DEBORA GRIFFITHSSARS-CoV-2 (COVID-19) RNA [Presence] in Respiratory specimen by KHAI with probe [id number] 16:33:38 Test Item Value Reference Range Interpretation Comments SARS-CoV-2 (COVID-19) RNA Not detected [Presence] in Respiratory specimen by KHAI with probe detection (test code = 00967-7) Whether patient is employed in a Unknown healthcare setting (test code = 07777-0) Whether the patient has symptoms Unknown related to condition of interest (test code = 65841-2) Whether the patient was Unknown hospitalized for condition of interest (test code = 50545-2) Whether the patient was admitted Unknown to intensive care unit (ICU) for condition of interest (test code = 98073-4) Whether patient resides in a Unknown congregate care setting (test code = 21866-3) status (test code = Unknown 34201-6) Date and time of symptom onset Unknown (test code = 16277-9) [facility]A GRIFFITHSSurgical pathology [id number] 19:04:16 Test Item Value Reference Range Interpretation Comments Case number (test [id number] code = 2715918) Surgical pathology See link below for PDF report (test code = Lab Report 2255) Result status (test This is Supplemental code = 3586208) Report for [id number] [facility] [id number] 18:23:00 Test Item Value Reference Range Interpretation Comments POC glucose (test code = 109 mg/dL 65-99 H Ope rator Name: 01688-1) Harjit Osborne roslyn ID: [id number] able: [facility] Notified hot pipe gauger Interpretation (test Abnormal code = 13175-1) [facility] [id number] 18:23:00 Test Item Value Reference Range Interpretation Comments POC glucose (test code = 109 mg/dL 65-99 H Ope rator Name: 46332-6) Harjit mcgowan ID: [id number] able: [facility] Notified hot pipe gauger Interpretation (test Abnormal code = 02500-8) [facility] RBC, 1 [id number] 04:18:00 Test Item Value Reference Range Interpretation Comments Product name (test code Red Blood Cells -1, = 25) Leukored Unit number (test code [id number] = [id number]) Product code (test code B3212L01 = 3092) Dispense status (test Transfused code = 24) Blood expiration date (test code = 302) Blood type code (test 5100 code = 308) Blood type (test code = O POSITIVE 1314) Compatibility (test Compatible code = 6400) [facility] RBC, 1 [id number] 04:18:00 Test Item Value Reference Range Interpretation Comments Product name (test code Red Blood Cells -1, = 25) Leukored Unit number (test code = [id number]) Product code (test code S9876N16 = 3092) Dispense status (test Transfused code = 24) Blood expiration date (test code = 302) Blood type code (test code = 308) Blood type (test code = O POSITIVE 1314) Compatibility (test code Compatible = 6400) [facility] [id number] 19:26:06 Test Item Value Reference Range Interpretation Comments Case number (test code = [id number]) Surgical pathology See link below for report (test code = PDF Lab Report 2255) Result status (test code This is Final Report = [id number]) for [id number] [facility] [id number] 20:16:00 Test Item Value Reference Range Interpretation Comments Urine culture growth after Specimen isolate (test 24 hours InformationSpe [facility]er hospitalen code = 94432-7) Source: [facility] Site: Random vo id [facility] [id number] 20:16:00 Test Item Value Reference Range Interpretation Comments Urine culture growth after Specimen isolate (test 24 hours InformationSpe cimen code = 07779-7) Source: [facility] Site: Random vo id [facility], [id number] 12:35:00 Test Item Value Reference Range Interpretation Comments Ionized calcium, 1.27 mmol/L 1.11-1.32 SP RAN UNDE R arterial (test code 14483907 161 = 06389-0) [facility], [id number] 12:35:00 Test Item Value Reference Range Interpretation Comments Ionized calcium, 1.27 mmol/L 1.11-1.32 SP RAN UNDE R arterial (test code 74104190 161 = 93251-7) [facility] 12 [id number] 21:30:16 Test Item Value Reference Range Interpretation Comments Ventricular rate (test 71 code = 253) Atrial rate (test code 71 = 255) NE interval (test code 152 = 266) QRSD [...] T wave abnormality now evident in Anterior leads-Electronically Signed By Amaya PEÑA, [facility] ([id number]) on 10/11/2022 3:30:13 PM [place] [address] [id number] 21:30:16 Test Item Value Reference Range Interpretation Comments Ventricular rate (test code = 253) Atrial rate (test code = 255) NE interval (test code = 266) QRSD interval [...] wave abnormality now evident in Anterior leads- [facility] Corporation[facility]CoV-2 (COVID-19) RNA [Presence] in Respiratory specimen by KHAI with probe [id number] 05:06:53 Test Item Value Reference Range Interpretation Comments SARS-CoV-2 (COVID-19) RNA Not detected [Presence] in Respiratory specimen by KHAI with probe detection (test code = 43621-1) Whether patient is employed in a Unknown healthcare setting (test code = 34376-2) Whether the patient has symptoms Unknown related to condition of interest (test code = 86604-4) Whether the patient was Unknown hospitalized for condition of interest (test code = 61410-1) Whether the patient was admitted Unknown to intensive care unit (ICU) for condition of interest (test code = 68437-6) Whether patient resides in a Unknown congregate care setting (test code = 44796-9) status (test code = Unknown 80261-0) Date and time of symptom onset Unknown (test code = 74164-3) [facility] Preliminary Interpretation - Not an [id number] 00:28:56 Test Item Value Reference Range Interpretation Comments GABINO (test code = GABINO) Miguel Quinteros MD 10/31/2022 4:27 [facility] ED Preliminary Interpretation - Not an OrderPerformed by: Miguel Quinteros MDAuthorized by: Miguel Quinteros MD ECG reviewed by ED Physician in the absence of a social work job titles: yes Interpretation: Interpretation: abnormal Rate: ECG rate: 86 ECG rate assessment: normal Rhythm: Rhythm: sinus rhythm Ectopy: Ectopy: bigeminy and PVCs QRS: QRS axis: Normal QRS intervals: NormalST segments: ST segments: NormalOther findings: Other findings: prolonged qTc interval Lab Interpretation Abnormal (test code = 09222-9) [facility] Preliminary Interpretation - Not an [id number] 00:28:56 Test Item Value Reference Range Interpretation Comments GABINO (test code = GABINO) Miguel Quinteros MD 10/31/2022 4:27 [facility] ED Preliminary Interpretation - Not an OrderPerformed by: Miguel Quinteros MDAuthorized by: Miguel Quinteros MD ECG reviewed by ED Physician in the absence of a social work job titles: yes Interpretation: Interpretation: abnormal Rate: ECG rate: 86 ECG rate assessment: normal Rhythm: Rhythm: sinus rhythm Ectopy: Ectopy: bigeminy and PVCs QRS: QRS axis: Normal QRS intervals: NormalST segments: ST segments: NormalOther findings: Other findings: prolonged qTc interval Lab Interpretation Abnormal (test code = 07602-0) [facility] HkhrlylhTFHX-PyE-5 (COVID-19) RNA [Presence] in Respiratory specimen by KHAI with probe [id number] 23:41:33 Test Item Value Reference Range Interpretation Comments SARS-CoV-2 (COVID-19) RNA Not detected [Presence] in Respiratory specimen by KHAI with probe detection (test code = 47716-2) Whether patient is employed in a Unknown healthcare setting (test code = 51876-0) Whether the patient has symptoms Unknown related to condition of interest (test code = 25245-5) Whether the patient was Unknown hospitalized for condition of interest (test code = 36533-5) Whether the patient was admitted Unknown to intensive care unit (ICU) for condition of interest (test code = 59764-2) Whether patient resides in a Unknown congregate care setting (test code = 24248-6) status (test code = Unknown 55333-1) Date and time of symptom onset Unknown (test code = 17826-5) [facility] 12 [id number] 20:48:01 Test Item Value Reference Range Interpretation Comments Ventricular rate (test code = 253) Atrial rate (test code = 255) NE interval (test code = 266) QRSD interval [...] ECGs available-Electronica lly Signed By Amaya PEÑA, [facility] ([id number]) on 04/11/2022 3:37:39 PM [facility] [id number] 13:35:08 Test Item Value Reference Range Interpretation Comments CULTURE A From Anaerobic (BEAKER) (test Bottle Only code = 1095) Diphtheroid GRAM STAIN From anaerobic RESULT (BEAKER) bottle only: gram (test code = positive 1123) coccobacilli BLOOD [id number] 10:00:55 Test Item Value Reference Range Interpretation Comments CULTURE (BEAKER) (test No growth in 5 days code = 1095) POC-Glucose [id number] 11:29:37 Test Item Value Reference Range Interpretation Comments POC-Glucose Meter (test 190 mg/dL 70-110 H : TE STED AT [facility] code = 1538) [facility] [place] [address]: Scallop Binder/Techni cristina ID = [id number] for Mckeon, Cecelia erickson Lab Interpretation (test Abnormal code = 10306-3) [facility] [id number] 11:29:37 Test Item Value Reference Range Interpretation Comments POC-Glucose Meter (test 190 mg/dL 70-110 H : TE STED AT [facility] code = 1538) [address] [place], [place] [address]: Scallop Binder/Techni cristina ID = [id number] for Mckeon, Cecelia erickson Lab Interpretation (test Abnormal code = 10499-2) [facility] [id number] 11:29:37 Test Item Value Reference Range Interpretation Comments POC-Glucose Meter (test 190 mg/dL 70-110 H : TE STED AT [facility] code = 1538) [facility] [place] 732158: Scallop Binder/Techni cristina ID = [id number] for Mckeon, Cecelia erickson Lab Interpretation (test Abnormal code = 89406-9) [facility] [id number] 11:29:37 Test Item Value Reference Range Interpretation Comments POC-GLUCOSE METER 190 mg/dL 70-110 H : TESTED A T [facility] 1317 (BEAKER) (test code [facility], = 1538) [place] [address]: Scallop Binder/Techni cristina ID = [id number] for Sonia Vaughan POCT-GLUCOSE [id number] 06:28:06 Test Item Value Reference Range Interpretation Comments POC-GLUCOSE METER 168 mg/dL 70-110 H : TESTED A T [facility] 1317 (BEAKER) (test code [address], = 1538) [facility] [place] [address]: Scallop Binder/Techni cristina ID = [id number] for Sherin Espinal BASIC METABOLIC [id number] 06:03:57 Test Item Value Reference Range Interpretation [...] S NOT APPLICABLE FOR DIALYSIS PATIEN TS. Scallop Binder ID - LITOOperator ID - LITOOperator ID - LITOOperator ID - LITOOperator ID - LITOOperator ID - LITOOperator ID - LITOOperator ID - LITOOperator ID - LITOOperator ID - [id number] 06:00:25 Test Item Value Reference Range Interpretation Comments MAGNESIUM (BEAKER) (test code = 2.0 mg/dL 1.5-3.0 627) Scallop Binder ID - LITOOperator ID - LITOOperator ID - LITOOperator ID - LITOCBC W/PLT COUNT & AUTO [id number] 05:48:50 Test Item Value Reference Range Interpretation [...] PERCENT (BEAKER) (test code = 2801) POCT-GLUCOSE [id number] 00:34:49 Test Item Value Reference Range Interpretation Comments POC-GLUCOSE METER 238 mg/dL 70-110 H : TESTED A T SLSL 1317 (BEAKER) (test code REYNOLDS I NT [facility], = 1538) [place] [id number]: Scallop Binder/Techni cristina ID = [id number] for Katherine Alexis POCT-GLUCOSE [id number] 20:38:11 Test Item Value Reference Range Interpretation Comments POC-GLUCOSE METER 261 mg/dL 70-110 H : TESTED A T SLSL 1317 (BEAKER) (test code [facility], = 1538) [place] [id number]: Scallop Binder/Techni cristina ID = [id number] for Brow n, Sherin POCT-GLUCOSE [id number] 18:58:16 Test Item Value Reference Range Interpretation Comments POC-GLUCOSE METER 138 mg/dL 70-110 H : TESTED A T SLSL 1317 (BEAKER) (test code [facility]YNOLDS I NT [facility], = 1538) [place] [id number]: Scallop Binder/Techni cristina ID = [id number] for Toljay , Robertsa POCT-GLUCOSE [id number] 07:07:59 Test Item Value Reference Range Interpretation Comments POC-GLUCOSE METER 165 mg/dL 70-110 H : TESTED A T SLSL 1317 (BEAKER) ([facility], = 1538) [place] [id number]: Scallop Binder/Techni cristina ID = [id number] for Brow n, Sherin TSH/FREE T4 IF [id number] 06:26:31 Test Item Value Reference Range Interpretation Comments THYROID STIMULATING HORMONE 1.460 uIU/mL 0.350-5.500 (BEAKER) (test code = 772) Scallop Binder ID - [id number] METABOLIC [id number] 06:13:13 Test Item Value Reference Range Interpretation [...] S NOT APPLICABLE FOR DIALYSIS PATIEN TS. Scallop Binder ID - [id number] ID - jvvn26Vexnlwbx ID - mcoq10Zhdlmobi ID - uvkh28Ohxspafw ID - magu40Urmtxrvm ID - kmgr44Oryxlilf ID - qpjf29Xrizluml ID - tyzr87Mntxvtef ID - njaa26Zuylwdec ID - [id number] FUNCTION [id number] 06:13:08 Test Item Value Reference Range Interpretation [...] (test code = 22 U/L 5-50 347) Scallop Binder ID - vfof81Xfqvtbnf ID - wpub88Dslfqmro ID - vwim71Giiymmbw ID - afnk06Azswgftd ID - mitx78Mmkthxim ID - tlsb70Rzlgojpm ID - [id number] W/PLT COUNT & AUTO [id number] 06:11:44 Test Item Value Reference Range Interpretation [...] H PERCENT (BEAKER) (test code = 2801) [id number] 06:05:35 Test Item Value Reference Range Interpretation Comments MAGNESIUM (BEAKER) (test code = 2.1 mg/dL 1.5-3.0 627) Scallop Binder ID - rofy54Hyypqngx ID - tajr82Cqsscwhr ID - dnht97Uukunsdw ID - [id number] POCT-GLUCOSE [id number] 20:52:17 Test Item Value Reference Range Interpretation Comments POC-GLUCOSE METER 103 mg/dL 70-110 : TESTED A T SLSL 1317 (BEAKER) (test code [address], = 1538) [facility] [place] [address]: Scallop Binder/Techni cristina ID = [id number] for Sherin Espinal GI Pathogen Profile by PCR-ID [id number] 17:47:01 Test Item Value Reference Range Interpretation Comments CAMPYLOBACTER PCR (test Not detected Not detected code = 89639-5) PLESIOMONAS SHIGELLOIDES Not detected Not detected (PCR) (test code = 13748-8) SALMONELLA (PCR) (test Not detected Not detected code = 89607-9) YERSINIA ENTEROCOLITICA Not detected Not detected (PCR) (test code = 05816-5) VIBRIO CHOLERAE (PCR) Not detected Not detected (test code = 49809-7) ENTEROAGGREGATIVE E. Not detected Not detected COLI (EAEC) BY PCR (test code = 58651-7) ENTEROPATHOGENIC E. COLI Not detected Not detected (EPEC) BY PCR (test code = 14449-7) ENTEROTOXIGENIC E. COLI Not detected Not detected (ETEC) LT/ST BY PCR (test code = 96015-3) SHIGA-LIKE Not detected Not detected TOXIN-PRODUCING E. COLI (STEC) STX1/STX2 (test code = 56781-9) E. COLI O157 (PCR) (test code = 94488-1) SHIGELLA/ENTEROINVASIVE Not detected Not detected E. COLI (EIEC) BY PCR (test code = 40393-7) CRYPTOSPORIDIUM (PCR) Not detected Not detected (test code = 36576-9) CYCLOSPORA CAYETANENSIS Not detected Not detected (PCR) (test code = 59794-6) ENTAMOEBA HISTOLYTICA Not detected Not detected (PCR) (test code = 31033-8) GIARDIA LAMBLIA (PCR) Not detected Not detected (test code = 47620-1) ADENOVIRUS F 40/41 (PCR) Not detected Not detected (test code = 61446-5) ASTROVIRUS (PCR) (test Not detected Not detected code = 45574-4) NOROVIRUS GI/GII (PCR) Not detected Not detected (test code = 84585-7) ROTAVIRUS A (PCR) (test Not detected Not detected code = 65047-3) SAPOVIRUS (I, II, IV, V) Not detected Not detected BY PCR (test code = 99988-4) VIBRIO Not detected Not detected (PARAHAEMOLYTICUS, VULNIFICUS) (test code = 31492-4) GABINO (test code = GABINO) Other viruses, parasites and bacteria not targeted by this PCR panel cannot be excluded; therefore clinical correlation and follow up of serology, culture results, and other molecular studies is required. The results are not intended to be used as the sole means for clinical diagnosis or patient management decisions. This sample was tested at the [facility] using the [employer] Gastrointestinal Panel. It is FDA cleared and has been verified and approved by the [facility] for clinical use. This laboratory is CLIA-certified and [employer] (CAP)-accredited to perform high complexity testing. [facility]-ID [id number] 17:47:01 Test Item Value Reference Range Interpretation Comments CAMPYLOBACTER PCR (test Not detected Not detected code = 48375-5) PLESIOMONAS SHIGELLOIDES Not detected Not detected (PCR) (test code = 83964-2) SALMONELLA (PCR) (test Not detected Not detected code = 50987-8) YERSINIA ENTEROCOLITICA Not detected Not detected (PCR) (test code = 52115-6) VIBRIO CHOLERAE (PCR) Not detected Not detected (test code = 37773-5) ENTEROAGGREGATIVE E. Not detected Not detected COLI (EAEC) BY PCR (test code = 44452-4) ENTEROPATHOGENIC E. COLI Not detected Not detected (EPEC) BY PCR (test code = 91884-2) ENTEROTOXIGENIC E. COLI Not detected Not detected (ETEC) LT/ST BY PCR (test code = 37498-3) SHIGA-LIKE Not detected Not detected TOXIN-PRODUCING E. COLI (STEC) STX1/STX2 (test code = 16234-8) E. COLI O157 (PCR) (test code = 58360-4) SHIGELLA/ENTEROINVASIVE Not detected Not detected E. COLI (EIEC) BY PCR (test code = 29485-4) CRYPTOSPORIDIUM (PCR) Not detected Not detected (test code = 25868-8) CYCLOSPORA CAYETANENSIS Not detected Not detected (PCR) (test code = 85901-7) ENTAMOEBA HISTOLYTICA Not detected Not detected (PCR) (test code = 32912-7) GIARDIA LAMBLIA (PCR) Not detected Not detected (test code = 25753-3) ADENOVIRUS F 40/41 (PCR) Not detected Not detected (test code = 59156-0) ASTROVIRUS (PCR) (test Not detected Not detected code = 43116-7) NOROVIRUS GI/GII (PCR) Not detected Not detected (test code = 07843-1) ROTAVIRUS A (PCR) (test Not detected Not detected code = 15893-3) SAPOVIRUS (I, II, IV, V) Not detected Not detected BY PCR (test code = 00529-3) VIBRIO Not detected Not detected (PARAHAEMOLYTICUS, VULNIFICUS) (test code = 39413-9) GABINO (test code = GABINO) Other viruses, parasites and bacteria not targeted by this PCR panel cannot be excluded; therefore clinical correlation and follow up of serology, culture results, and other molecular studies is required. The results are not intended to be used as the sole means for clinical diagnosis or patient management decisions. This sample was tested at the [facility] using the [employer] Gastrointestinal Panel. It is FDA cleared and has been verified and approved by the [facility] for clinical use. This laboratory is CLIA-certified and [employer] (CAP)-accredited to perform high complexity testing. [facility] by PCR-ID [id number] 17:47:01 Test Item Value Reference Range Interpretation Comments CAMPYLOBACTER PCR (test Not detected Not detected code = 92777-5) PLESIOMONAS SHIGELLOIDES Not detected Not detected (PCR) (test code = 66962-1) SALMONELLA (PCR) (test Not detected Not detected code = 00112-2) YERSINIA ENTEROCOLITICA Not detected Not detected (PCR) (test code = 43028-2) VIBRIO CHOLERAE (PCR) Not detected Not detected (test code = 32140-6) ENTEROAGGREGATIVE E. Not detected Not detected COLI (EAEC) BY PCR (test code = 66109-9) ENTEROPATHOGENIC E. COLI Not detected Not detected (EPEC) BY PCR (test code = 45244-7) ENTEROTOXIGENIC E. COLI Not detected Not detected (ETEC) LT/ST BY PCR (test code = 36052-5) SHIGA-LIKE Not detected Not detected TOXIN-PRODUCING E. COLI (STEC) STX1/STX2 (test code = 36687-9) E. COLI O157 (PCR) (test code = 55387-6) SHIGELLA/ENTEROINVASIVE Not detected Not detected E. COLI (EIEC) BY PCR (test code = 83829-9) CRYPTOSPORIDIUM (PCR) Not detected Not detected (test code = 50300-4) CYCLOSPORA CAYETANENSIS Not detected Not detected (PCR) (test code = 18830-5) ENTAMOEBA HISTOLYTICA Not detected Not detected (PCR) (test code = 82719-6) GIARDIA LAMBLIA (PCR) Not detected Not detected (test code = 47490-7) ADENOVIRUS F 40/41 (PCR) Not detected Not detected (test code = 13761-5) ASTROVIRUS (PCR) (test Not detected Not detected code = 61274-9) NOROVIRUS GI/GII (PCR) Not detected Not detected (test code = 61435-1) ROTAVIRUS A (PCR) (test Not detected Not detected code = 35389-4) SAPOVIRUS (I, II, IV, V) Not detected Not detected BY PCR (test code = 32058-6) VIBRIO Not detected Not detected (PARAHAEMOLYTICUS, VULNIFICUS) (test code = 21833-2) GABINO (test code = GABINO) Other viruses, parasites and bacteria not targeted by this PCR panel cannot be excluded; therefore clinical correlation and follow up of serology, culture results, and other molecular studies is required. The results are not intended to be used as the sole means for clinical diagnosis or patient management decisions. This sample was tested at the [facility] using the [employer] Gastrointestinal Panel. It is FDA cleared and has been verified and approved by the [facility] for clinical use. This laboratory is CLIA-certified and [employer] (CAP)-accredited to perform high complexity testing. [facility] BY [id number] 17:47:01 Test Item Value Reference Range Interpretation [...] Not detected BY PCR (test code = 3310218) ENTEROPATHOGENIC E. COLI (EPEC) Not detected Not detected BY PCR (test code = 20160601) ENTEROTOXIGENIC E. COLI (ETEC) Not detected Not detected LT/ST BY PCR (test code = 4250653) SHIGA-LIKE TOXIN-PRODUCING E. Not detected Not detected COLI (STEC) STX1/STX2 (test code = 0445453) E. COLI O157 (PCR) (test code = 4663555) SHIGELLA/ENTEROINVASIVE E. COLI Not detected Not detected (EIEC) BY PCR (test code = 20160605) CRYPTOSPORIDIUM (PCR) (test code Not detected Not detected = 20160606) CYCLOSPORA CAYETANENSIS (PCR) Not detected Not detected (test code = ) ENTAMOEBA HISTOLYTICA (PCR) Not detected Not detected (test code = 20160629) GIARDIA LAMBLIA (PCR) (test code Not detected Not detected = 20160630) ADENOVIRUS F 40/41 (PCR) (test Not detected Not detected code = 20160701) ASTROVIRUS (PCR) (test code = Not detected Not detected 20160702) NOROVIRUS GI/GII (PCR) (test Not detected Not detected code = 6790747) ROTAVIRUS A (PCR) (test code = Not detected Not detected 20160704) SAPOVIRUS (I, II, IV, V) BY PCR Not detected Not detected (test code = 2963393) VIBRIO (PARAHAEMOLYTICUS, Not detected Not detected VULNIFICUS) (test code = 0543220) Other viruses, parasites and bacteria not targeted by this PCR panel cannot be excluded; therefore clinical correlation and follow up of serology, culture results, and other molecular studies is required. The results are not intended to be used as the sole means for clinical diagnosis or patient management decisions. This sample was tested at the [facility] using the [employer] Gastrointestinal Panel. It is FDA cleared and has been verified and approved by the [facility] for clinical use. This laboratory is CLIA-certified and College of[employer] (CAP)-accredited to perform high complexity testing.POCT-GLUCOSE [id number] 16:37:04 Test Item Value Reference Range Interpretation Comments POC-GLUCOSE METER 104 mg/dL 70-110 : TESTED A T SLSL 1317 (BEAKER) (test code [address], = 1538) [facility] [address]: Scallop Binder/Techni cristina ID = [id number] for Tabitha Toribio TROPONIN [id number] 13:49:07 Test Item Value Reference Range Interpretation Comments TROPONIN I (BEAKER) (test code = 1.43 ng/mL 0.00-0.15 [facility]) Troponin I (TnI) levels must be interpreted [...] failure, acidosis, acute neurological disease, and persistent tachyarrhythmia.Scallop Binder ID - [id number] Echo W/Doppler(CW/PW/Color)2022-02-08 12:43:16Ejection [facility]LEH [facility] W/Doppler(CW/PW/Color) 2022-02-08 12:43:16Ejection [facility]LEH [facility] Echo W/Doppler(CW/PW/Color)2022-02-08 12:43:16Ejection FractionSLEH [facility] [id number] 12:09:27 Test Item Value Reference Range Interpretation Comments POC-GLUCOSE METER 106 mg/dL 70-110 : TESTED A T SLSL 1317 (BEAKER) (test code [address], = 1538) [facility] [address]: Scallop Binder/Techni cristina ID = [id number] for Tabitha Toribio Clostridium difficile GDH [id number] 11:58:11 Test Item Value Reference Range Interpretation Comments C. Difficle Toxin Negative Negative (test code = 0327834604) C. Difficile GDH Negative Negative No indicati on of Antigen (test code = Clostri dium 8245572125) difficile infection and n o colonization. Discontinue enteric isolati on and therapy. GABINO (test code = Testing performed GABINO) by [employer] Rapid Cassette Assay. For GDH, published sensitivity of the assay is 98.7% compared to cytotoxicity testing. For Toxin AB, published sensitivity is 87.8% and specificity 99.4% compared to cytotoxicity testing.Verificati on of kit performance was done by the [facility] prior to clinical use. Lab Interpretation Normal (test code = 42597-2) [facility] Center[facility]ost[facility] diff[facility]DH [id number] 11:58:11 Test Item Value Reference Range Interpretation Comments C. Difficle Toxin Negative Negative (test code = 7661951813) C. Difficile GDH Negative Negative No indicati on of Antigen (test code = Clostri dium 9025465454) difficile infection and n o colonization. Discontinue enteric isolati on and therapy. GABINO (test code = Testing performed GABINO) by [employer] Rapid Cassette Assay. For GDH, published sensitivity of the assay is 98.7% compared to cytotoxicity testing. For Toxin AB, published sensitivity is 87.8% and specificity 99.4% compared to cytotoxicity testing.Verificati on of kit performance was done by the [facility] prior to clinical use. Lab Interpretation Normal (test code = 03658-0) [facility] Center[facility] difficile [facility]DH [id number] 11:58:11 Test Item Value Reference Range Interpretation Comments C. Difficle Toxin Negative Negative (test code = 3507993617) C. Difficile GDH Negative Negative No indicati on of Antigen (test code = Clostri dium 0404120987) difficile infection and n o colonization. Discontinue enteric isolati on and therapy. GABINO (test code = Testing performed GABINO) by [employer] Rapid Cassette Assay. For GDH, published sensitivity of the assay is 98.7% compared to cytotoxicity testing. For Toxin AB, published sensitivity is 87.8% and specificity 99.4% compared to cytotoxicity testing.Verificati on of kit performance was done by the [facility] prior to clinical use. Lab Interpretation Normal (test code = 17255-8) [facility]. DIFFICILE GDH [id number] 11:58:11 Test Item Value Reference Range Interpretation Comments CDT TOXIN (test code Negative Negative = 0813946000) CDT GDH ANTIGEN (test Negative Negative No ind ication of code = 2917997489) Clostridi um difficile infection and n o colonization. Discontinue ent mindy isolation and t herapy. Testing performed by [employer] Rapid Cassette Assay. For GDH, published sensitivity of the assay is 98.7% compared to cytotoxicity testing. For Toxin AB, published sensitivity is 87.8% and specificity 99.4% compared to cytotoxicity testing.Verification of kit performance was done by the [facility] prior to clinical use.Urinalysis w/Microscopic + Reflex to [id number] 11:41:47 Test Item Value Reference Range Interpretation Comments Color, UA (test code = Yellow 5778-6) Clarity, UA (test code = Clear 5767-9) Specific [place], UA 1.015 1.001-1.035 (test code = 5811-5) pH, UA (test code = 5.0 5.0-8.0 5803-2) Protein, UA (test code = 30 mg/dL Negative A 76734-5) Glucose, UA (test code = 250 mg/dL Negative A 365) Ketones, UA (test code = Negative Negative 2514-8) Bilirubin, UA (test code Negative Negative = 72854-9) Blood, UA (test code = Large Negative A 38467-2) Nitrite, UA (test code = Negative Negative 5802-4) Leukocytes, UA (test Trace Negative A code = 5799-2) Urobilinogen, UA (test 0.2 mg/dL 0.2-1.0 code = 37348-1) Bacteria, UA (test code Few = 68669-0) RBC, UA (test code = 5-10 See_Comment [Autom ated message] 799-7) The system [employer] generated this result transmit lópez reference range : /HPF. The refer ence range was not u sed to interpret th is result as normal/abnormal . WBC, UA (test code = 5-10 See_Comment [Autom ated message] 79957-6) The system [employer] generated this result transmit lópez reference range : /HPF. The refer ence range was not u sed to interpret th is result as normal/abnormal . SQUAMOUS EPITHELIAL <5 See_Comment [Automa lópez message] (test code = 33641-0) The sy stem which generated this result transmit lópez reference range : /HPF. The refer ence range was not u sed to interpret th is result as normal/abnormal . Specimen Source (test code = 2795) Lab Interpretation (test Abnormal code = 31037-8) [facility] + Reflex to Culture 2022-02-08 11:41:47 Test Item Value Reference Range Interpretation Comments Color, UA (test code = Yellow 5778-6) Clarity, UA (test code = Clear 5767-9) Specific [place], UA 1.015 1.001-1.035 (test code = 5811-5) pH, UA (test code = 5.0 5.0-8.0 5803-2) Protein, UA (test code = 30 mg/dL Negative A 59465-9) Glucose, UA (test code = 250 mg/dL Negative A 365) Ketones, UA (test code = Negative Negative 2514-8) Bilirubin, UA (test code Negative Negative = 59317-1) Blood, UA (test code = Large Negative A 13450-1) Nitrite, UA (test code = Negative Negative 5802-4) Leukocytes, UA (test Trace Negative A code = 5799-2) Urobilinogen, UA (test 0.2 mg/dL 0.2-1.0 code = 89404-2) Bacteria, UA (test code Few = 17716-7) RBC, UA (test code = 5-10 See_Comment [Autom ated message] 799-7) The system [employer] generated this result transmit lópez reference range : /HPF. The refer ence range was not u sed to interpret th is result as normal/abnormal . WBC, UA (test code = 5-10 See_Comment [Autom ated message] 90442-8) The system [employer] generated this result transmit lópez reference range : /HPF. The refer ence range was not u sed to interpret th is result as normal/abnormal . SQUAMOUS EPITHELIAL <5 See_Comment [Automa lópez message] (test code = 33711-6) The sy stem which generated this result transmit lópez reference range : /HPF. The refer ence range was not u sed to interpret th is result as normal/abnormal . Specimen Source (test code = 2795) Lab Interpretation (test Abnormal code = 18586-5) [facility] + Reflex to Culture 2022-02-08 11:41:47 Test Item Value Reference Range Interpretation Comments Color, UA (test code = Yellow 5778-6) Clarity, UA (test code = Clear 5767-9) Specific [place], UA 1.015 1.001-1.035 (test code = 5811-5) pH, UA (test code = 5.0 5.0-8.0 5803-2) Protein, UA (test code = 30 mg/dL Negative A 90939-1) Glucose, UA (test code = 250 mg/dL Negative A 365) Ketones, UA (test code = Negative Negative 2514-8) Bilirubin, UA (test code Negative Negative = 94445-0) Blood, UA (test code = Large Negative A 25574-0) Nitrite, UA (test code = Negative Negative 5802-4) Leukocytes, UA (test Trace Negative A code = 5799-2) Urobilinogen, UA (test 0.2 mg/dL 0.2-1.0 code = 99343-7) Bacteria, UA (test code Few = 72408-2) RBC, UA (test code = 5-10 See_Comment [Autom ated message] 799-7) The system [employer] generated this result transmit lópez reference range : /HPF. The refer ence range was not u sed to interpret th is result as normal/abnormal . WBC, UA (test code = 5-10 See_Comment [Autom ated message] 44455-0) The system whic h generated this result transmit lópez reference range : /HPF. The refer ence range was not u sed to interpret th is result as normal/abnormal . SQUAMOUS EPITHELIAL <5 See_Comment [Automa lópez message] (test code = 86858-3) The sy stem which generated this result transmit lópez reference range : /HPF. The refer ence range was not u sed to interpret th is result as normal/abnormal . Specimen Source (test code = 2795) Lab Interpretation (test Abnormal code = 76671-4) [facility]FLEX URINE [id number] 11:41:47 Test Item Value Reference Range Interpretation [...] = 1663) SOURCE(BEAKER) (test code = 2795) [id number] 06:53:46 Test Item Value Reference Range Interpretation Comments PROCALCITONIN (BEAKER) (test code = > ng/mL <0.05 HH 3036) SEPSIS RISK (ng/mL)Low: 0.05-0.50Intermediate: 0.51-2.00High: >=2.01RAD, CHEST, 1 VIEW, NON [id number] 06:35:00Reason for exam:->Chest pain, SOBShould this be performed at the bedside?->Yes [facility] 1970 Sex: MFINAL REPORT [...] Manuel Starks MDReport Verified Date/Time: 02/08/2022 06:35:11 [id number] 06:25:41 Test Item Value Reference Range Interpretation Comments FERRITIN (BEAKER) (test code = 174.90 ng/mL 22.00-322.00 361) Scallop Binder ID - LITOCOMPREHENSIVE METABOLIC [id number] 06:24:00 Test Item Value Reference Range Interpretation [...] S NOT APPLICABLE FOR DIALYSIS PATIEN TS. Scallop Binder ID - LITOOperator ID - LITOOperator ID - LITOOperator ID - LITOOperator ID - LITOOperator ID - LITOOperator ID - LITOOperator ID - LITOOperator ID - LITOOperator ID - LITOOperator ID - LITOOperator ID - LITOOperator ID - LITOOperator ID - LITOOperator ID - LITOOperator ID - LITOLIPID [id number] 06:23:35 Test Item Value Reference Range Interpretation [...] Borderline 130-159 High 160-189 Very High >=190 Scallop Binder ID - LITOOperatorID - LITOOperator ID - [id number] 06:23:22 Test Item Value Reference Range Interpretation Comments MAGNESIUM (BEAKER) (test code = 1.7 mg/dL 1.5-3.0 627) Scallop Binder ID - LITOOperator ID - LITOOperator ID - LITOOperator ID - LITOIRON, TIBC, % SAT. (WITHOUT FERRITIN)2022-02-08 06:22:39 Test Item Value Reference Range Interpretation Comments IRON (BEAKER) (test code = 547) 12.0 ug/dL 45.0-170.0 L TOTAL IRON BINDING CAPACITY 206 ug/dL 250-550 L (BEAKER) (test code = 769) IRON % SATURATION (2) (BEAKER) 6 % 20-55 L (test code = 2590) Scallop Binder ID - LITOOperator ID - [id number] 06:19:55 Test Item Value Reference Range Interpretation Comments PHOSPHORUS (BEAKER) (test code = 2.9 mg/dL 2.5-4.5 604) Scallop Binder ID - LITOCBC W/PLT COUNT & AUTO [id number] 06:17:13 Test Item Value Reference Range Interpretation [...] 0-100 H (BEAKER) (test code = 700) Scallop Binder ID - LITOTROPONIN [id number] 06:14:48 Test Item Value Reference Range Interpretation [...] failure, acidosis, acute neurological disease, and persistent tachyarrhythmia.Scallop Binder ID - LITOHEMOGLOBIN A1C 2022-02-08 06:08:30 Test Item Value Reference Range Interpretation Comments HEMOGLOBIN A1C (MARQUEZ) (test code = 12.6 % 4.3-6.1 H 368) Scallop Binder ID - LITOLACTIC ACID, [id number] 06:04:47 Test Item Value Reference Range Interpretation Comments LACTATE BLOOD 1.79 mmol/L See_Comment [Automated me ssage] VENOUS (2) (MARQUEZ) The syst em which (test code = 2872) generated this result transmitted ref erence range: 0.50-<2. 00. The reference range was not used to interpr et this result as normal/abnormal . Scallop Binder ID - LITOOperator ID - LITOOperator ID - LITOOperator ID - DOUGLAS PROTHROMBIN TIME/[id number] 06:01:25 Test Item Value Reference Range Interpretation Comments PROTIME (MARQUEZ) 13.4 seconds 9.3-12.0 H Final Infor mation (test code = 759) (Auto Outp ut) INR (MARQUEZ) (test 1.24 See_Comment Final Inf ormation code [...] 2.5-3.5 for patients with mechanical heart valves.POCT-GLUCOSE [id number] 05:41:10 Test Item Value Reference Range Interpretation Comments POC-GLUCOSE METER 290 mg/dL 70-110 H : TESTED A T [facility] 1317 (BEAKER) (test code [address], = 1538) [facility] [id number]: Scallop Binder/Techni cristina ID = [id number] for Danii Joseph POCT-GLUCOSE [id number] 12:52:00 Test Item Value Reference Range Interpretation Comments POC-GLUCOSE METER 286 mg/dL 70-110 H : TESTED A T [facility] (BEAKER) (test code [address], [address] = 1538) [facility] [id number]: Scallop Binder/Techni cristina ID = [id number] for AXEL HONEYCUTT
[2023-04-08 14:25] LABS: Absolute Lymphocytes (CBC) 1.7 K/uL (0.7-4.9); Hematocrit 34.8 % (39.6-49.0); Lymphocytes % 16.2 % (15.3-44.8); MPV 8.6 fL (7.6-11.3)
[2023-04-08 14:35] LABS: Protime INR 1.04
[2023-04-08 14:51] LABS: Anisocytosis 2+; Blood Morphology Comment NOTED (NOT SEEN); Hypochromasia 1+; Platelet Estimate ADEQ; White Blood Cell Scan OK (OK)
[2023-04-08 14:59] LABS: Albumin 3.8 g/dL (3.4-5.0); Bilirubin Total 0.4 mg/dL (0.2-1.0); Protein, Total 8.9 g/dL (6.4-8.2)
[2023-04-08 15:02] LABS: Potassium 6.7 mEq/L (3.5-5.1)
[2023-04-08] MEDS ORDERED: INSULIN -REGULAR HUMAN 50 UNIT/0.5 ML ML ONE (15:29)
[2023-04-08] MEDS ORDERED: NA CHLORIDE 0.9% 500 ML ONE (15:29)
[2023-04-08] MEDS ORDERED: CALCIUM GLUCONATE 1 GM IVPB 1 GM/50 ML BAG IV ONE (15:29)
[2023-04-08] MEDS ORDERED: D10W 250 ML IV ONE (15:30)
--- NOTE | 2023-04-08 15:58 | RAD REPORT ---
EXAM DESCRIPTION: CT - Chest Abd Pelvis Wo Con - 04/08/2023 3:35 pm CLINICAL HISTORY: Colon cancer/hypotension COMPARISON: November 2022 TECHNIQUE: Computed axial tomography of the chest, abdomen and pelvis was obtained. Oral contrast wa s given. IV contrast was not requested. All CT scans are performed using dose optimization technique as appropriate and may include automated exposure control or mA/KV adjustment according to patient size. FINDINGS: The evaluation of mediastinum, adolfo, vessels and solid organs is limited secondary to the lack of IV contrast administration 1 centimeter noncalcified nodule right middle lobe abutting the minor fissure unchanged Development of a 1.7 x 0.7 centimeter opacity right lower lobe Calcified granuloma right lung No mediastinal or hilar lymphadenopathy seen. Coronary arterial calcifications Small right pleural effusion. Small pericardial effusion. The liver, spleen, pancreas, adrenals and left kidney appear grossly normal. Punctate nonobstructing right renal calculi. Several gallstones. No gallbladder wall thickening is seen. Right hemicolectomy. Small to moderate pneumoperitoneum. No abscess. Right ileostomy. Moderate amount of stool left colon and rectum. Rectum measures 6 centimeters. Air within the bladder presumably secondary to recent instrumentation. Mild bladder wall thickening m ay indicate inflammation IMPRESSION: 1 centimeter right middle lobe nodule may represent a metastasis Development of a 1.7 x 0.7 centimeter right lower lobe opacity may represent inflammation or metastas is Small to moderate pneumoperitoneum most likely related to recent right hemicolectomy. If the patient has clinical symptoms to suggest bowel perforation then CT with oral contrast could be obtained Moderate amount of stool left colon
--- NOTE | 2023-04-08 15:59 | RAD REPORT ---
EXAM DESCRIPTION: Noe Single View04/08/2023 3:02 pm CLINICAL HISTORY: Hypotensive. Colon cancer COMPARISON: November 2022 CT chest FINDINGS: 1 centimeter nodule right middle lobe unchanged. Nodular opacity overlying the mid to lower left lung represents a nipple shadow. Heart is borderline enlarged
--- NOTE | 2023-04-08 16:11 | ER ---
Nurse's Notes [facility] Name: Royce Farr Age: 52 yrs Sex: Male : 1970 Arrival Date: 04/08/2023 Time: 13:47 Bed 4 Private MD: Diagnosis: Hypotension, unspecified;Dizziness and giddiness;Acute kidney injury;Acidosis;Hyperkalemia Presentation: 04/08 14:04 Chief complaint: EMS states: toned out for low BP, systolic at home was 70, upon vg1 assessment BP was 90s systolic. Pt c/o lightheaded, denies N/V of pain. Stated had a partial bowel resection on March 28, 2023. Coronavirus screen: Vaccine status: Patient reports receiving the 2nd dose of the covid vaccine. Client denies travel out of the [place] in the last 14 days. Ebola Screen: Patient negative for fever greater than or equal to 101.5 degrees Fahrenheit, and additional compatible Ebola Virus Disease symptoms Patient denies exposure to infectious person. Patient denies travel to an Ebola-affected area in the 21 days before illness onset. Initial Sepsis Screen: Does the patient meet any 2 criteria? No. Patient's initial sepsis screen is negative. Does the patient have a suspected source of infection? No. Patient's initial sepsis screen is negative. Risk Assessment: Do you want to hurt yourself or someone else? Patient reports no desire to harm self or others. Onset of symptoms was April 08, 2023. 14:04 Method Of Arrival: EMS: [facility] 1 14:04 Acuity: SANDRO 3 vg1 14:04 Care prior to arrival: IV initiated. 20 GA, in the right hand. vg1 Triage Assessment: 14:07 General: Appears uncomfortable, ill, Behavior is cooperative. Pain: Denies pain. Neuro: vg1 Level of Consciousness is awake, alert, obeys commands, Oriented to person, place, time, situation, Reports lightheaded . Cardiovascular: Capillary refill < 3 seconds. Respiratory: Airway is patent Respiratory effort is even, unlabored. GI: Patient currently denies pain, vomiting. : No signs and/or symptoms were reported regarding the genitourinary system. Derm: Skin is clammy. Musculoskeletal: Circulation, motion, and sensation intact. Historical: - Allergies: 14:07 No Known Allergies; vg1 - PMHx: 14:07 Congestive heart failure; diabetes mellitus; Hypertensive disorder; Myocardial vg1 infarction; stage 4 colon cancer (September 2022); - PSHx: 14:07 Bowel Resection; vg1 - Immunization history:: Client reports receiving the 2nd dose of the Covid vaccine. - Social history:: Smoking status: Patient denies any tobacco usage or history of. - Family history:: not pertinent. - Hospitalizations: : Patient was recently seen at. Screenin:08 [facility] ED Fall Risk Assessment (Adult) History of falling in the last 3 months, vg1 including since admission No falls in past 3 months (0 pts). Abuse screen: Denies threats or abuse. Denies injuries from another. Nutritional screening: No deficits noted. Tuberculosis screening: No symptoms or risk factors identified. Assessment: 14:08 Reassessment: SEE TRIAGE. vg1 15:27 Reassessment: Patient appears in no apparent distress at this time. Patient and/or vg1 family updated on plan of care and expected duration. Pain level reassessed. Patient is alert, oriented x 3, equal unlabored respirations, skin warm/dry/pink. Patient states feeling better. 17:23 Reassessment: Patient appears in no apparent distress at this time. No changes from vg1 previously documented assessment. Patient and/or family updated on plan of care and expected duration. Pain level reassessed. Patient is alert, oriented x 3, equal unlabored respirations, skin warm/dry/pink. 18:17 Reassessment: EMS at bedside to transfer pt to receiving hospital. vg1 Vital Signs: 14:04 BP 107 / 73; Pulse 80; Resp 16; Temp 98.2(TE); Pulse Ox 100% on R/A; Weight 42 kg; vg1 Height 5 ft. 5 in. ; Pain 0/10; 14:30 BP 106 / 82; Pulse 80; Resp 20; Pulse Ox 100% on R/A; zm 15:00 BP 106 / 78; Pulse 80; Resp 14; Pulse Ox 100% on R/A; vg1 17:00 BP 120 / 82; Pulse 80; Resp 14; Pulse Ox 100% on R/A; vg1 14:04 Body Mass Index 15.41 (42.00 kg, 165.1 cm) vg1 14:04 Pain Scale: Adult vg1 ED Course: 13:57 Patient arrived in ED. rn 13:57 Kings Luna MD is Attending Physician. rn 14:00 Inserted saline lock: 20 gauge in right forearm, using aseptic technique. Blood zm collected. 14:00 Initial lab(s) drawn, by me, sent to lab. zm 14:00 First set of blood cultures drawn by me. zm 14:04 Rehana Fox, RN is Primary Nurse. vg1 14:06 Triage completed. vg1 14:07 Arm band placed on. vg1 14:08 Patient has correct armband on for positive identification. Bed in low position. Call vg1 light in reach. Side rails up X2. Client placed on continuous cardiac and pulse oximetry monitoring. NIBP monitoring applied. 14:15 Second set of blood cultures drawn by me. zm 14:25 Blood Culture Adult (2) Sent. zm 14:25 CBC with Diff Sent. zm 14:25 CMP Sent. zm 14:25 Lactate w/ 2H reflex if indic. Sent. zm 14:25 Protime (+inr) Sent. zm 14:25 Ptt, Activated Sent. zm 14:25 Troponin High Sensitivity Sent. zm 14:25 BNP Sent. zm 15:04 Chest Single View XRAY In Process Unspecified. EDMS 15:36 Chest Abd Pelvis Wo Con In Process Unspecified. EDMS 16:18 initiated a transfer with Aram from the [facility] transfer Center at the request of the patient. 16:38 administrative approval given by Aram Gan/ patient has been accepted to [place] [id number]/ Dr. Ghislaine Muhammad has accepted the patient in transfer/ report to be called to [phone]. 17:14 Urinalysis w/ reflexes Sent. zm 17:23 BMP Sent. vg1 18:17 No provider procedures requiring assistance completed. Patient transferred, IV remains vg1 in place. Administered Medications: 15:42 Drug: Insulin Regular Human IVP 5 units {Co-Signature: bp (Kehinde Matthews RN).} Route: vg1 IVP; Site: right forearm; 16:29 Follow up: Response: No adverse reaction vg1 15:44 Drug: NS 0.9% IV 500 ml Route: IV; Rate: bolus; Site: right hand; vg1 16:29 Follow up: IV Status: Completed infusion; IV Intake: 500ml vg1 15:46 Drug: D50W IVP 50 ml Route: IVP; Site: right forearm; vg1 16:29 Follow up: Response: No adverse reaction vg1 16:18 Drug: Sodium Bicarbonate IVP 1 amp Route: IVP; Site: right hand; vg1 17:06 Follow up: Response: No adverse reaction vg1 16:24 Drug: Calcium Gluconate IVPB 1 grams Route: IVPB; Infused Over: 60 mins; Site: right vg1 hand; 17:23 Follow up: IV Status: Completed infusion; IV Intake: 100ml vg1 17:23 Drug: NS 0.9% IV 250 ml Route: IV; Rate: calculated rate; Site: right forearm; vg1 17:40 Follow up: IV Status: Completed infusion; IV Intake: 250ml vg1 Medication: 18:17 VIS not applicable for this client. vg1 Intake: 16:29 IV: 500ml; Total: 500ml. vg1 17:23 IV: 100ml; Total: 600ml. vg1 17:40 IV: 250ml; Total: 850ml. vg1 Outcome: 16:11 ER care complete, transfer ordered by . rn 17:39 Transferred by ground EMS to [facility]. vg1 17:39 Transferred Note: Receiving nurse , Yoselyn BREWSTER 17:39 Condition: good 17:39 Instructed on the need for transfer. 18:53 Patient left the ED. aa5 Signatures: Dispatcher [employer] EDKings Ramos MD MD rn Calderon, Audri RN RN aa5 Lyn De La Fuente Victoria RN RN stephan1 Pavithra Wise Brian RN bp Corrections: (The following items were deleted from the chart) 14:26 14:25 Inserted saline lock: 20 gauge in right forearm, using aseptic technique. Blood zm collected. zm
--- NOTE | 2023-04-08 16:12 | EDPHYS ---
Physician Documentation [facility] Name: Royce Farr Age: 52 yrs Sex: Male : 1970 Arrival Date: 04/08/2023 Time: 13:47 Bed 4 Private MD: ED Physician Kings Luna HPI: 04/08 14:16 This 52 yrs old Male presents to ER via EMS with complaints of dizziness. rn 14:16 EMS reports patient with recent admission [facility] for resection of colon mass and rn colostomy, has been told needs heart transplant, unknown plan regarding transplant. NO fever. Was admitted for 2 weeks and discharged 5 days ago. Was feeling fine then yesterday felt lightheaded. NO syncope. No chest pain/sob. No new cough. No vomiting. . Onset: The symptoms/episode began/occurred yesterday. Severity of symptoms: At their worst the symptoms were moderate in the emergency department the symptoms have improved. The patient has not experienced similar symptoms in the past. The patient has been recently seen by a physician:. Historical: - Allergies: 14:07 No Known Allergies; vg1 - PMHx: 14:07 Congestive heart failure; diabetes mellitus; Hypertensive disorder; Myocardial vg1 infarction; stage 4 colon cancer (September 2022); - PSHx: 14:07 Bowel Resection; vg1 - Immunization history:: Client reports receiving the 2nd dose of the Covid vaccine. - Social history:: Smoking status: Patient denies any tobacco usage or history of. - Family history:: not pertinent. - Hospitalizations: : Patient was recently seen at. ROS: 14:16 Constitutional: Negative for fever, chills, and weight loss, Cardiovascular: Negative rn for chest pain, palpitations, and edema, Respiratory: Negative for shortness of breath, cough, wheezing, and pleuritic chest pain, Abdomen/GI: + postsurgical abd pain, negative for vomiting, no bloody stoma output. MS/Extremity: Negative for injury and deformity, Skin: Negative for injury, rash, and discoloration, Neuro: Negative for headache, numbness, tingling, and seizure. Exam: 14:16 Constitutional: Cachectic male, no acute distress Head/Face: Normocephalic, rn atraumatic. ENT: MMM Cardiovascular: Regular rate and rhythm. No pulse deficits. Respiratory: No increased work of breathing, no retractions or nasal flaring. Abdomen/GI: midline vertical incision c/d/i with reagan, RLQ colostomy with normal colored liquid stool in bag. MS/ Extremity: Pulses equal, no cyanosis. Neuro: Awake and alert, GCS 15 Vital Signs: 14:04 BP 107 / 73; Pulse 80; Resp 16; Temp 98.2(TE); Pulse Ox 100% on R/A; Weight 42 kg; vg1 Height 5 ft. 5 in. ; Pain 0/10; 14:30 BP 106 / 82; Pulse 80; Resp 20; Pulse Ox 100% on R/A; zm 15:00 BP 106 / 78; Pulse 80; Resp 14; Pulse Ox 100% on R/A; vg1 17:00 BP 120 / 82; Pulse 80; Resp 14; Pulse Ox 100% on R/A; vg1 14:04 Body Mass Index 15.41 (42.00 kg, 165.1 cm) vg1 14:04 Pain Scale: Adult vg1 MDM: 13:57 Patient medically screened. rn 16:09 ED course: Lab reported hyperkalemia without signs of hemolysis. . rn 16:09 Differential Diagnosis sepsis, dehydration, volume depletion, CHF, UTI, pneumonia. Data rn reviewed: vital signs, nurses notes, lab test result(s), EKG, radiologic studies, CT scan, and as a result, I will admit patient. Consideration of Admission/Observation Patient was admitted/placed on observation. Escalation of care including admission/observation considered. Counseling: I had a detailed discussion with the patient and/or guardian regarding: the historical points, exam findings, and any diagnostic results supporting the discharge/admit diagnosis, lab results, radiology results, the need for further work-up and treatment in the hospital, the need to transfer to another facility, for higher level of care, [facility] does not immediately have the required specialist. 04/08 13:58 Order name: Blood Culture Adult (2) rn 04/08 13:58 Order name: CBC with Diff; Complete Time: 15:00 rn 04/08 13:58 Order name: CMP; Complete Time: 15:09 rn 04/08 13:58 Order name: Lactate w/ 2H reflex if indic.; Complete Time: 15:00 rn 04/08 13:58 Order name: Protime (+inr); Complete Time: 14:44 rn 11 13:58 Order name: Ptt, Activated; Complete Time: 14:44 rn 11 13:58 Order name: Urinalysis w/ reflexes; Complete Time: 17:45 rn 11 13:58 Order name: BNP; Complete Time: 15:09 rn 11 13:58 Order name: Troponin High Sensitivity; Complete Time: 15:09 rn 11 14:29 Order name: CBC Smear Scan; Complete Time: 15:00 EDND 04/08 14:35 Order name: Glucose, Ancillary Testing; Complete Time: 14:44 EDMS 11 16:47 Order name: BMP rn 04/08 17:33 Order name: Urine Culture EDND 11 13:58 Order name: Chest Single View XRAY; Complete Time: 16:00 rn 04/08 15:19 Order name: Chest Abd Pelvis Wo Con; Complete Time: 16:00 EDMS 04/08 13:58 Order name: EKG; Complete Time: 13:59 rn 04/08 13:58 Order name: Accucheck; Complete Time: 14:23 rn 04/08 13:58 Order name: Cardiac monitoring; Complete Time: 14:04 rn 04/08 13:58 Order name: EKG - Nurse/Tech; Complete Time: 14:21 rn 04/08 13:58 Order name: IV Saline Lock - Large Bore; Complete Time: 14:21 rn 04/08 13:58 Order name: Labs collected and sent; Complete Time: 14:21 rn 04/08 13:58 Order name: O2 Per Protocol; Complete Time: 14:04 rn 04/08 13:58 Order name: O2 Sat Monitoring; Complete Time: 14:04 rn 04/08 13:58 Order name: Vital Signs; Complete Time: 14:21 rn Administered Medications: 15:42 Drug: Insulin Regular Human IVP 5 units {Co-Signature: bp (Kehinde Matthews RN).} Route: vg1 IVP; Site: right forearm; 16:29 Follow up: Response: No adverse reaction vg1 15:44 Drug: NS 0.9% IV 500 ml Route: IV; Rate: bolus; Site: right hand; vg1 16:29 Follow up: IV Status: Completed infusion; IV Intake: 500ml vg1 15:46 Drug: D50W IVP 50 ml Route: IVP; Site: right forearm; vg1 16:29 Follow up: Response: No adverse reaction vg1 16:18 Drug: Sodium Bicarbonate IVP 1 amp Route: IVP; Site: right hand; vg1 17:06 Follow up: Response: No adverse reaction vg1 16:24 Drug: Calcium Gluconate IVPB 1 grams Route: IVPB; Infused Over: 60 mins; Site: right vg1 hand; 17:23 Follow up: IV Status: Completed infusion; IV Intake: 100ml vg1 17:23 Drug: NS 0.9% IV 250 ml Route: IV; Rate: calculated rate; Site: right forearm; vg1 17:40 Follow up: IV Status: Completed infusion; IV Intake: 250ml vg1 Disposition Summary: 04/08/23 16:11 Transfer Ordered Transfer Location: [facility] rn Reason: Higher level of care rn Condition: Stable rn Problem: new rn Symptoms: have improved rn Accepting Physician: (04/08/23 18:53) aa5 Diagnosis - Hypotension, unspecified rn - Dizziness and giddiness rn - Acute kidney injury rn - Acidosis rn - Hyperkalemia rn Forms: - Medication Reconciliation Form rn - SBAR form 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 Total rn time: 40 minutes Signatures: Dispatcher [employer] EDKings Ramos MD MD rn Calderon, Audri RN RN aa5 Lyn De La Fuente Victoria RN RN stephan1 Kehinde Matthews RN bp Corrections: (The following items were deleted from the chart) 15:19 13:59 Chest Abdomen Pelvis W Con+CT.RAD.BRZ ordered. [facility] EDND 17:51 16:11 Dr. maxi boswell 18:53 17:51 eb aa5
[2023-04-08] MEDS ORDERED: NA CHLORIDE 0.9% 250 ML ONE (17:15)
[2023-04-08 17:21] LABS: Specific Gravity 1.019 (1.005-1.030); Urine Bacteria None Seen /HPF (<20); Urine Bilirubin NEGATIVE (Negative); Urine Blood 1+ (Negative); Urine Clarity Extremely Turbid (Clear); Urine Color Yellow (Yellow); Urine Glucose 1+ (Negative); Urine Mucus 1+ /HPF (None Seen); Urine Protein 1+ (Negative); Urine Urobilinogen Normal (Normal); Urine WBC Clump Occasional /HPF (None Seen)
[2023-04-08 19:20] VITALS: TEMP 98.2; O2SAT 100
[2023-04-08 19:23] VITALS: BP 120/82
--- NOTE | 2023-04-09 12:04 | EKG ---
Test Date: 2023-04-08 Test Time: 14:18:14 Produce Weigher: DANIELLE MEASUREMENT RESULTS: Intervals: Rate: 81 ND: 176 QRSD: 118 QT: 400 QTc: 464 Mccloud: P: 19 ND: 176 QRS: -50 T: 105 INTERPRETIVE STATEMENTS: Normal sinus rhythm Left axis deviation Low voltage QRS T wave abnormality, consider lateral ischemia Prolonged QT Abnormal ECG Compared to ECG 12/11/2022 15:31:42 T-wave abnormality now present Possible ischemia now present Prolonged QT interval now present Sinus tachycardia no longer present Myocardial infarct finding no longer present Electronically Signed On 04-09-23 12:00:37 CDT by Fadi Palumbo
== END 2023-04-08 18:53 | disposition short-term general hospital (02) ==
LOC: ER 13:47
DX: I95.9 Hypotension, unspecified (principal); N17.9 Acute kidney failure, unspecified; E87.20 Acidosis, unspecified; E87.5 Hyperkalemia; I10 Essential (primary) hypertension; I50.9 Heart failure, unspecified; Z85.038 Personal history of other malignant neoplasm of large intestine
CPT/HCPCS: 93005; 87040 ×2; 87088; 85025; 81001; 87086; 80048; 36415; 85610; 82947; 83605; 85730; 84484; 80053; 83880; 71250; 74176; 71045; 99285; J1815; J0610; J7050; J7040

== ENCOUNTER 2024-06-10 10:35 | Inpatient (IN) | payer BC, SELFPAY ==
--- NOTE | 2024-06-10 11:29 | RAD REPORT ---
EXAM DESCRIPTION: RAD - Chest Single View - 06/10/2024 11:23 am CLINICAL HISTORY: DYSPNEA COMPARISON: Chest Single View dated 04/08/2023; Chest Single View dated 12/11/2022; Chest Single View dated 11/01/2022; Chest Single View dated 09/28/2022; Abdomen Pelvis W Contrast dated 05/17/2024 FINDINGS: Lines: Pacemaker/ICD. Lungs: Diffuse prominence of the pulmonary interstitium. Likely atelectasis as result of the right ef fusion. Pleural: Moderate to large right pleural effusion. Cardiac: Cardiomegaly suspected. Mediastinum: Within normal limits. Bones: No acute fractures. Other: None IMPRESSION: Moderate to large right pleural effusion with possible underlying atelectasis. Pulmonary edema present .
[2024-06-10 11:34] LABS: Absolute Basophils 0.1 K/uL (0-0.5); Absolute Eosinophils 0.1 K/uL (0-0.5); Absolute Lymphocytes (CBC) 1.7 K/uL (0.7-4.9); Absolute Monocytes 0.6 K/uL (0.1-1.3); Eosinophils % 1.1 % (0-4.4); Hemoglobin 14.9 g/dL (13.6-17.9); Lymphocytes % 23.2 % (15.3-44.8); MCH 28.5 pg (27.0-35.0); MCHC 31.7 g/dL (32.0-36.0); MCV 89.9 fL (80-100); Monocytes % 8.2 % (3.3-12.3); Neutrophils % 66.5 % (41.7-73.7); Nucleated Red Blood Cells % 0.1 % (0-0); Platelets 242 thou/uL (152-406); RBC Red Blood Cell Count 5.23 M/uL (4.33-5.43); Red Cell Distribution Width 19.6 % (12.1-15.2)
[2024-06-10 12:04] LABS: Anion Gap 12.1 mEq/L (5.0-15.0); Magnesium 2.2 mg/dL (1.6-2.4); Potassium 4.1 mEq/L (3.5-5.1); Troponin High Sensitivity 17.2 pg/mL (<58.9)
--- NOTE | 2024-06-10 12:42 | EDPHYS ---
Physician Documentation [facility] Name: Royce Farr Age: 53 yrs Sex: Male : 1970 Arrival Date: 06/10/2024 Time: 10:35 Bed 17 Private MD: ED Physician Bertram Bingham HPI: 06/10 11:30 This 53 yrs old Male presents to ER via Ambulatory with complaints of Breathing ms3 Difficulty. 11:30 53-year-old male with past medical history of congestive heart failure, hypertension, ms3 diabetes, myocardial infarction presents to the emergency department for shortness of breath that is been ongoing 1 week. Patient states that shortness of breath became worse last night. He states he does have chest pain and he rates the discomfort a 5/10. Patient notes he did not take his meds this morning.. Historical: - Allergies: 10:43 No Known Allergies; dd2 - PMHx: 10:43 Congestive heart failure; Hypertensive disorder; diabetes mellitus; Myocardial dd2 infarction; stage 4 colon cancer (September 2022); - PSHx: 10:43 bowel resection; ileostomy reversal; dd2 - Immunization history:: Adult Immunizations unknown. - Infectious Disease History:: Denies. - Social history:: Smoking status: Patient denies any tobacco usage or history of. ROS: 11:30 Constitutional: Negative for fever, and chills. Cardiovascular: Negative for chest ms3 pain, and palpitations. Abdomen/GI: Negative for abdominal pain, nausea, vomiting, diarrhea, and constipation, 11:30 MS/Extremity: Negative for injury and deformity, Skin: Negative for injury, rash, and discoloration, 11:30 Respiratory: Positive for cough, shortness of breath, Exam: 11:30 Constitutional: This is a well developed, well nourished patient who is awake, alert, ms3 and in no acute distress. Head/Face: Normocephalic, atraumatic. Neck: Trachea midline, no cervical lymphadenopathy. Supple, full range of motion without nuchal rigidity, or vertebral point tenderness. No Meningismus. Chest/axilla: Normal chest wall appearance and motion. Nontender with no deformity. 11:30 Cardiovascular: Rate: normal, Rhythm: regular, Pulses: no pulse deficits are appreciated, Heart sounds: murmur, not appreciated, rub, not appreciated, gallop, S3 noted, 11:30 ECG was reviewed by the Attending Physician. Vital Signs: 10:41 BP 125 / 90; Pulse 97; Resp 20; Temp 97.1; Pulse Ox 100% ; Weight 58.51 kg; Height 5 dd2 ft. 5 in. ; 11:30 BP 126 / 91; Pulse 94; Resp 15 S; Pulse Ox 100% on 3 lpm NC; kc6 12:52 BP 126 / 90; Pulse 94; Resp 23 S; Pulse Ox 100% on 3 lpm NC; kc6 13:56 Pulse 99; Resp 20 S; Pulse Ox 100% on 3 lpm NC; kc6 14:27 BP 128 / 95; Pulse 96; Resp 18 S; Pulse Ox 97% on 3 lpm NC; kc6 10:41 Body Mass Index 21.47 (58.51 kg, 165.1 cm) dd2 MDM: 11:10 Patient medically screened. ms3 11:30 Differential diagnosis: CHF exacerbation, pneumonia, pulmonary edema. ms3 18:22 Data reviewed: vital signs, nurses notes, lab test result(s), EKG, radiologic studies, ms3 plain films, and as a result, I will admit patient. Consideration of Admission/Observation Patient was admitted/placed on observation. Management of patient was discussed with the following: Hospitalist: . I considered the following discharge prescriptions or medication management in the emergency department Medications were administered in the Emergency Department. See MAR. Independent interpretation of the following test(s) in the Emergency Department EKG: See my EKG interpretation above X-Ray: My interpretation is Chest x-ray image reviewed by me reveals right pleural effusion.. Counseling: I had a detailed discussion with the patient and/or guardian regarding the historical points, exam findings, and any diagnostic results supporting the discharge/admit diagnosis, lab results, radiology results, the need for further work-up and treatment in the hospital. ED course: Discussed case with Dr. Llamas and he accepts patient. Discussed plan for admission with patient. He understands agrees with plan. All questions were answered.. 06/10 10:58 Order name: Basic Metabolic Panel; Complete Time: 12:36 ms3 06/10 10:58 Order name: CBC with Diff; Complete Time: 11:52 ms3 06/10 10:58 Order name: Magnesium; Complete Time: 12:36 ms3 06/10 10:58 Order name: NT PRO-BNP; Complete Time: 12:36 ms3 06/10 10:58 Order name: Troponin HS; Complete Time: 12:36 ms3 06/10 13:03 Order name: CBC with Automated Diff EDMS 06/10 13:03 Order name: CBC with Automated Diff EDMS 06/10 13:03 Order name: Comprehensive Metabolic Panel EDMS 06/10 13:03 Order name: Comprehensive Metabolic Panel EDMS 06/10 13:03 Order name: Troponin High Sensitivity EDMS 06/10 13:03 Order name: Troponin High Sensitivity EDMS 06/10 13:03 Order name: Troponin High Sensitivity EDMS 06/10 13:03 Order name: Troponin High Sensitivity EDMS 06/10 10:58 Order name: XRAY Chest (1 view); Complete Time: 11:52 ms3 06/10 11:30 Order name: Thoracentesis w/ US Guide EDMS 06/10 12:31 Order name: Chest Single View; Complete Time: 14:06 EDMS 06/10 10:58 Order name: Cardiac monitoring; Complete Time: 11:07 ms3 06/10 10:58 Order name: EKG - Nurse/Tech; Complete Time: 11:07 ms3 06/10 10:58 Order name: IV Saline Lock; Complete Time: 11:38 ms3 06/10 10:58 Order name: Labs collected and sent; Complete Time: 11:17 ms3 06/10 10:58 Order name: O2 Per Protocol; Complete Time: 11:07 ms3 06/10 10:58 Order name: O2 Sat Monitoring; Complete Time: 11:07 ms3 EC:30 Rate is 95 beats/min. Rhythm is regular. Left axis deviation noted. LA interval is ms3 normal. QRS interval is normal. Clinical impression: NSR w/ Non-specific ST/T Changes. Interpreted by me. Reviewed by me. Administered Medications: 12:58 Drug: Furosemide IVP 40 mg IVP once; give over 2 minutes Route: IVP; Site: left forearm;kc6 13:57 Follow up: Response: No adverse reaction kc6 Disposition: 18:24 Critical Care:. ms3 Disposition Summary: 06/10/24 12:41 Hospitalization Ordered Notes: Hospitalization Status: Inpatient Admission ms3 Provider: Son Llamas ms3 Location: Telemetry/MedSurg (Inpatient) ms3 Condition: Stable ms3 Problem: new ms3 Symptoms: are unchanged ms3 Bed/Room Type: Standard ms3 Room Assignment: 229(06/10/24 13:09) bd Diagnosis - Pleural Effusion ms3 - Heart failure, unspecified ms3 - Shortness of breath ms3 - Respiratory failure, unspecified with hypoxia ms3 Forms: - Medication Reconciliation Form ms3 - SBAR form ms3 - Leadership Thank You Letter ms3 Critical care time excluding procedures: 18:24 Critical care time: Bedside Care: 25 minutes, Consultation: 10 minutes. Total time: 35 ms3 minutes Signatures: Dispatcher [employer] EDMS Monica Walker bd Carol, Garrett, BROKERAGE MANAGER-C BROKERAGE MANAGER-Cla1 Bertram Bingham DO DO ms3 Eli Gonzalez, RN RN kc6 LIZABETH GOLDSTEIN RN RN dd2 Corrections: (The following items were deleted from the chart) 10:58 10:58 BASIC METABOLIC PANEL+C.LAB.BRZ ordered. EDMS EDMS 10:58 10:58 CBC+H.LAB.BRZ ordered. EDMS EDMS 10:58 10:58 MAGNESIUM+C.LAB.BRZ ordered. EDMS EDMS 10:58 10:58 PROBNP+C.LAB.BRZ ordered. EDMS EDMS 10:58 10:58 Troponin High Sensitivity+C.LAB.BRZ ordered. EDMS EDMS 10:58 10:58 Chest Single View+RAD.RAD.BRZ ordered. EDMS EDMS 13:09 12:41 ms3 bd
--- NOTE | 2024-06-10 12:42 | ER ---
Nurse's Notes [facility] Name: Royce Farr Age: 53 yrs Sex: Male : 1970 Arrival Date: 06/10/2024 Time: 10:35 Bed 17 Private MD: Diagnosis: Pleural Effusion;Heart failure, unspecified;Shortness of breath;Respiratory failure, unspecified with hypoxia Presentation: 06/10 10:41 Chief complaint: Patient states: PT STATES DIFFICULTY BREATHING FOR 2 WEEKS BUT dd2 WORSENED LAST NIGHT. Coronavirus screen: At this time, the client does not indicate any symptoms associated with coronavirus-19. Ebola Screen: No symptoms or risks identified at this time. Initial Sepsis Screen: Does the patient meet any 2 criteria? No. Patient's initial sepsis screen is negative. Does the patient have a suspected source of infection? No. Patient's initial sepsis screen is negative. Risk Assessment: Do you want to hurt yourself or someone else? Patient reports no desire to harm self or others. Onset of symptoms is unknown. 10:41 Method Of Arrival: Ambulatory dd2 10:41 Acuity: SANDRO 3 dd2 Triage Assessment: 10:43 General: Appears in no apparent distress. Behavior is calm, cooperative. Pain: dd2 Complains of pain in mid-sternal area. Respiratory: Reports shortness of breath cough that is Onset: The symptoms/episode began/occurred at an unknown time. the patient has mild shortness of breath. Historical: - Allergies: 10:43 No Known Allergies; dd2 - PMHx: 10:43 Congestive heart failure; Hypertensive disorder; diabetes mellitus; Myocardial dd2 infarction; stage 4 colon cancer (September 2022); - PSHx: 10:43 bowel resection; ileostomy reversal; dd2 - Immunization history:: Adult Immunizations unknown. - Infectious Disease History:: Denies. - Social history:: Smoking status: Patient denies any tobacco usage or history of. Screenin:53 [facility] ED Fall Risk Assessment (Adult) History of falling in the last 3 months, kc6 including since admission No falls in past 3 months (0 pts) Confusion or Disorientation No (0 pts) Intoxicated or Sedated No (0 pts) Impaired Gait No (0 pts) Mobility Assist Device Used No (0 pt) Altered Elimination No (0 pt) Score/Fall Risk Level 0 - 2 = Low Risk. Abuse screen: Denies threats or abuse. Denies injuries from another. Nutritional screening: No deficits noted. Tuberculosis screening: No symptoms or risk factors identified. Assessment: 11:17 General: Appears in no apparent distress. comfortable, well groomed, well developed, kc6 Behavior is calm, cooperative, appropriate for age. Pain: Complains of pain in chest and mid-sternal area Pain does not radiate. Pain currently is 5 out of 10 on a pain scale. Neuro: Level of Consciousness is awake, alert, obeys commands, Oriented to person, place, time, situation, Appropriate for age. Cardiovascular: Reports chest pain, shortness of breath, Heart tones S1 S2 S3 present Capillary refill < 3 seconds Rhythm is sinus rhythm. Respiratory: Reports shortness of breath at rest on exertion Airway is patent Trachea midline Respiratory effort is even, unlabored, Respiratory pattern is symmetrical, tachypnea Breath sounds are clear bilaterally. Onset: The symptoms/episode began/occurred gradually, the patient has mild shortness of breath. GI: No signs and/or symptoms were reported involving the gastrointestinal system. : No signs and/or symptoms were reported regarding the genitourinary system. EENT: No signs and/or symptoms were reported regarding the EENT system. Derm: Skin is healthy with good turgor, Skin is dry, Skin is jaundiced, pale, Skin temperature is warm Wound noted right lower quadrant Wound is healing with a scab over it. no redness, swelling or drainage. pt states it is from a recent colostomy reversal. Musculoskeletal: No signs and/or symptoms reported regarding the musculoskeletal system. Circulation, motion, and sensation intact. Capillary refill < 3 seconds, Range of motion: intact in all extremities, Swelling present in right leg and left leg. 11:29 Reassessment: pt reports sudden onset of SOB while laying bed. SPO2 dropped to 83% on kc6 RABraden Bingham at bedside. pt placed on 3L via NC, SPO2 is now 100%. 12:51 Reassessment: Patient appears in no apparent distress at this time. No changes from kc6 previously documented assessment. Patient and/or family updated on plan of care and expected duration. Pain level reassessed. Patient is alert, oriented x 3, equal unlabored respirations, skin warm/dry/pink. Patient states feeling better. Patient states symptoms have improved. 13:56 Reassessment: Patient appears in no apparent distress at this time. No changes from kc6 previously documented assessment. Patient and/or family updated on plan of care and expected duration. Pain level reassessed. Patient is alert, oriented x 3, equal unlabored respirations, skin warm/dry/pink. 14:27 Reassessment: Patient appears in no apparent distress at this time. No changes from kc6 previously documented assessment. Patient and/or family updated on plan of care and expected duration. Pain level reassessed. Patient is alert, oriented x 3, equal unlabored respirations, skin warm/dry/pink. Vital Signs: 10:41 BP 125 / 90; Pulse 97; Resp 20; Temp 97.1; Pulse Ox 100% ; Weight 58.51 kg; Height 5 dd2 ft. 5 in. ; 11:30 BP 126 / 91; Pulse 94; Resp 15 S; Pulse Ox 100% on 3 lpm NC; kc6 12:52 BP 126 / 90; Pulse 94; Resp 23 S; Pulse Ox 100% on 3 lpm NC; kc6 13:56 Pulse 99; Resp 20 S; Pulse Ox 100% on 3 lpm NC; kc6 14:27 BP 128 / 95; Pulse 96; Resp 18 S; Pulse Ox 97% on 3 lpm NC; kc6 10:41 Body Mass Index 21.47 (58.51 kg, 165.1 cm) dd2 ED Course: 10:41 Patient arrived in ED. mg5 10:43 Triage completed. dd2 10:43 Arm band placed on left wrist. Patient placed in an exam room, on a stretcher, on dd2 library monitor, on pulse oximetry, Patient notified of wait time. 10:46 Bertram Bingham DO is Attending Physician. ms3 10:47 Eli Gonzalez, RN is Primary Nurse. kc6 10:55 Patient has correct armband on for positive identification. Bed in low position. Call kc6 light in reach. Side rails up X2. hall monitor on. Pulse ox on. NIBP on. Warm blanket given. Pillow given. 11:17 Initial lab(s) drawn, by me, sent to lab. Missed attempt(s): 22 gauge in right forearm. kc6 11:25 XRAY Chest (1 view) In Process Unspecified. EDMS 11:38 Lab(s) recollected, by me, sent to lab. Inserted saline lock: 20 gauge in left forearm, kc6 using aseptic technique. Blood collected. Flushed with 10 mL NS. 11:45 Provided Education on: Procedure Consent, Thoracentesis with US Guide. kc6 12:05 Patient taken to ultrasound. with US tech, on 3L via NC, accompanied by x2 medical kc6 students. 12:23 Thoracentesis w/ US Guide In Process Unspecified. EDMS 12:41 Son Llamas MD is Hospitalizing Provider. ms3 12:46 Chest Single View In Process Unspecified. EDMS 12:51 Patient moved back from ultrasound. kc6 14:01 CM met with Mr Birch and his mother Sarahi at the bedside in the ED exam room. ane Patient identified by name and . Demographic sheet confirmed. Mr. Farr lives with his mother in a one story home. Prior to admission, Mr Birch began using a cane for the last 2 weeks, but still performs ADLs independently. Sarahi states "Balance has not been good since this last surgery" Mr Birch states he had an "ostomy reversal" and has long history of hospitalizations. Other DME in the home includes a walker and wheelchair. Sarahi states she has built in prisoner classification interviewer bars in the bathroom and shower bench in the home. No HH or home oxygen at this time, however has previously had HH with [facility] with PT, wound care, and nurse visits in 2018. Mr Birch also says he had "cardiac rehab" and treatment at [facility] in preparation for his ostomy reversal. At this time, Mr. Farr states he is uninsured that he just lost insurance 2 weeks prior but his new insurance should begin coverage Jun 29, 2024. Jim explained he is working with his former employer to obtain insurance coverage. Community resource packet provided to patient. Mr. Farr's preferred discharge plan is to return home and states he will drive home but if unable to, his mother can transport him home. CM team will continue to follow and coordinate care. 14:41 No provider procedures requiring assistance completed. Patient admitted, IV remains in kc6 place. Administered Medications: 12:58 Drug: Furosemide IVP 40 mg IVP once; give over 2 minutes Route: IVP; Site: left forearm;kc6 13:57 Follow up: Response: No adverse reaction kc6 Medication: 14:42 VIS not applicable for this client. kc6 Outcome: 12:41 Decision to Hospitalize by Provider. msIsrael 14:41 Admitted to Med/surg accompanied by tech, via wheelchair, room 229, with oxygen, with kc6 chart, 14:41 Condition: stable 14:41 Instructed on the need for admit, 14:42 Patient left the ED. kc6 Signatures: Dispatcher [employer] EDMS Bertram Bingham DO DO ms3 Eli Gonzalez RN RN kc6 Gardner, [place] 5 Erika Gonzalez RN RN ane DAVIS, DIANA, RN RN dd2 Corrections: (The following items were deleted from the chart) 14:31 14:01 CM met with Mr Birch and his mother Sarahi at the bedside in the ED exam room. ane Patient identified by name and . Demographic sheet confirmed. Mr. Farr lives with his mother in a one story home. Prior to admission, Mr Birch began using a cane for the last 2 weeks, but still performs ADLs independently. Sarahi states "Balance has not been good since this last surgery" Mr Birch states he had an "ostomy reversal" and has long history of hospitalizations. Other DME in the home includes a walker and wheelchair. Sarahi states she has built in prisoner classification interviewer bars in the bathroom and shower bench in the home. No HH or home oxygen at this time, however has previously had HH with [facility] with PT, wound care, and nurse visits in 2018. Mr Birch also says he had "cardiac rehab" and treatment at [facility] in preparation for his ostomy reversal. At this time, Mr. Farr states he is uninsured that he just lost insurance 2 weeks prior but his new insurance should begin coverage Jun 29, 2024. Jim explained he is working with his former employer to obtain insurance coverage Mr. Farr's preferred discharge plan is to return home and states he will drive home but if unable to, his mother can transport him home. CM team will continue to follow and coordinate care. ane
[2024-06-10] MEDS ORDERED: FUROSEMIDE 40 MG/4 ML VIAL ONE (12:53)
[2024-06-10] MEDS ORDERED: ONDANSETRON 4 MG/2 ML VIAL IV PRN (12:58)
[2024-06-10] MEDS ORDERED: ACETAMINOPHEN 500 MG TAB PO PRN (12:58)
--- NOTE | 2024-06-10 13:36 | RAD REPORT ---
EXAM DESCRIPTION: RADChest Single View06/10/2024 12:44 pm CLINICAL HISTORY: S/P THORACENTESIS COMPARISON: Chest Single View dated 06/10/2024; Chest Single View dated 04/08/2023; Chest Single View dated 12/11/2022; Chest Single View dated 11/01/2022; Chest Abd Pelvis Wo Con dated 04/08/2023; Thoracent esis w/ US Guide dated 06/10/2024 TECHNIQUE: Portable AP view of the chest. FINDINGS: No pneumothorax. Marked decrease in size of right pleural effusion. Development of left ba silar airspace opacification and effusion. Mild central congestive changes present, partially improve d. The cardiomediastinal contours are unchanged with stable cardiomegaly and left chest wall pacer pl acement. IMPRESSION: No pneumothorax with marked interval improvement in volume of right pleural effusion. Development of left basilar airspace opacities and moderate effusion.
[2024-06-10 15:32] VITALS: BMI 21.4
--- NOTE | 2024-06-10 16:16 | RAD REPORT ---
EXAM DESCRIPTION: US - Thoracentesis w/ US Guide - 06/10/2024 12:24 pm CLINICAL HISTORY: difficulty breathing COMPARISON: Chest Single View dated 06/10/2024 FINDINGS: Procedure: Ultrasound-guided right-sided thoracentesis. Preoperative diagnosis: Right-sided pleural effusion Post operative diagnosis: Same Conscious Sedation: None. Estimated blood loss: Minimal Specimens:1.5 liters of fluid aspirated. A sample sent to the lab Complications: None IMPRESSION: Successful ultrasound-guided right-sided thoracentesis as detailed.
[2024-06-10] MEDS ORDERED: HYDRALAZINE HCL 20 MG/ML VIAL IV PRN (16:22)
[2024-06-10] MEDS ORDERED: GLUCAGON 1 MG/VIAL IM PRN (16:24)
--- NOTE | 2024-06-10 16:32 | P.HP ---
Certification for Inpatient Patient admitted to: Inpatient With expected LOS: >2 Midnights Patient will require the following post-hospital care: None Practitioner: I am a practitioner with admitting privileges, knowledge of patient current condition, hospital course, and medical plan of care. Services: Services provided to patient in accordance with Admission requirements found in Title 42 Section 412.3 of the Code of Federal Regulations Patient History Date of Service: 06/10/24 Primary Care Provider: Unknown Reason for admission: chf exaerbatuiion History of Present Illness: Former patient of mine. Seen last on 09/19. He has a history of dm2, htn, chf. Has not missed any medications. However he may have eaten a bit of high sodium foods. He was not able to breath last night and came to the ER. The patient had an elevated bnp and pleural effusion. Was sent to IR for thoracentesis. I am awaiting a report on that procedure. He is currently in his room. Has a cough improved sob Allergies No Known Allergies Allergy (Unverified 01/26/17 02:17) Home Medications: Aspirin [Aspirin EC 81 MG] 1 tab PO DAILY 09/28/22 Atorvastatin Calcium 1 tab PO DAILY 09/28/22 Carvedilol [Coreg] 1 tab PO BID 09/28/22 Clopidogrel Bisulfate [Plavix*] 1 tab PO DAILY 09/28/22 Dapagliflozin/Metformin HCl [Xigduo Xr 10 mg-1,000 mg Tab] 1 tab PO DAILY 09/28/22 Niacin [Niacin ER] 1 tab PO BEDTIME 09/28/22 Furosemide 1 tab PO DAILY 30 Days #30 tab 09/30/22 - Past Medical/Surgical History Has patient received pneumonia vaccine in the past: No Diabetic: Yes -: HTN -: CHF -: IA -: Diabetes -: Colon CA -: cardiac stents placement in January -: Bowel Resection -: Ileostomy reversal - Family History Father -: Hypertension, Diabetes - Social History Smoking Status: Never smoker Alcohol use: No CD- Drugs: No Caffeine use: Yes Place of Residence: Home Review of Systems 10-point ROS is otherwise unremarkable Respiratory: Cough, Shortness of Breath Cardiovascular: Edema (2+) Physical Examination - Vital Signs Temperature: 97.1 F Blood Pressure: 128/95 Pulse: 96 Respirations: 18 - Physical Exam General: Alert, In no apparent distress HEENT: Atraumatic, PERRLA, Mucous membr. moist/pink, EOMI, Sclerae nonicteric Neck: Supple, 2+ carotid pulse no bruit, No LAD, Without JVD or thyroid abnormality Respiratory: Normal air movement, Crackles/rales Cardiovascular: Regular rate/rhythm, Normal S1 S2, Edema (2+) Gastrointestinal: Normal bowel sounds, No tenderness Musculoskeletal: No tenderness Integumentary: No rashes Neurological: Normal gait, Normal speech, Normal strength at 5/5 x4 extr, Normal tone, Normal affect Lymphatics: No axilla or inguinal lymphadenopathy - Studies Laboratory Data (last 24 hrs) 06/10/24 06/10/24 11:39 11:15 WBC 7.50 Hgb 14.9 Hct 47.0 Plt Count 242 Sodium 138 Potassium 4.1 BUN 29 H Creatinine 1.52 H Glucose 189 H Magnesium 2.2 Assessment and Plan - Problems (Diagnosis) (1) Acute systolic (congestive) heart failure Current Visit: No Status: Acute Plan: will continue diuseis on the patient with once daily lasix. Monitor Is and Os. Keep an eye on his creatine. (2) HTN (hypertension) Current Visit: No Status: Chronic Plan: not currently on medications. 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 Will start iss. Will add lantus based on his a1c Discharge Plan: Home Plan to discharge in: 48 Hours - Advance Directives Does patient have a Living Will: No Does patient have a Durable POA for Healthcare: No - Code Status/Comfort Care Code Status Assessed: No Critical Care: No Time Spent Managing Pts Care (In Minutes): 50
[2024-06-10] MEDS ORDERED: D10W 250 ML BAG IV PRN (16:35)
[2024-06-10] MEDS: ENOXAPARIN 30 MG/0.3 ML SQ SCH (16:46)
[2024-06-10] MEDS: INSULIN LISPRO 100 UNIT/ML SQ SCH (16:47)
[2024-06-11 06:43] LABS: Absolute Basophils 0.1 K/uL (0-0.5); Absolute Eosinophils 0.1 K/uL (0-0.5); Absolute Lymphocytes (CBC) 1.7 K/uL (0.7-4.9); Absolute Monocytes 0.8 K/uL (0.1-1.3); Basophils % 0.9 % (0-1.3); Eosinophils % 0.9 % (0-4.4); Hematocrit 38.7 % (39.6-49.0); Hemoglobin 12.8 g/dL (13.6-17.9); MCH 29.1 pg (27.0-35.0); MCHC 33.1 g/dL (32.0-36.0); MCV 88.1 fL (80-100); MPV 9.7 fL (7.6-11.3); Monocytes % 7.9 % (3.3-12.3); Neutrophils % 74.3 % (41.7-73.7); Nucleated Red Blood Cells % 0.1 % (0-0); Platelets 187 thou/uL (152-406); RBC Red Blood Cell Count 4.39 M/uL (4.33-5.43); Red Cell Distribution Width 18.4 % (12.1-15.2)
[2024-06-11 07:06] LABS: AST/SGOT 13 U/L (15-37); Albumin 2.4 g/dL (3.4-5.0); Albumin/Globulin Ratio 0.6 (1.1-1.8); Alkaline Phosphatase 152 U/L (45-117); Anion Gap 13.8 mEq/L (5.0-15.0); BUN Blood Urea Nitrogen 30 mg/dL (7-18); Bicarbonate 18 mEq/L (21-32); Bilirubin Total 1.3 mg/dL (0.2-1.0); Globulin 3.7 g/dL (2.3-3.5); Glomerular Filtration Rate 59 ml/min (=/>90); Glucose Level 96 mg/dL (74-106); Potassium 3.8 mEq/L (3.5-5.1); Protein, Total 6.1 g/dL (6.4-8.2); Sodium Level 140 mEq/L (136-145); Troponin High Sensitivity 10.7 pg/mL (<58.9)
[2024-06-11 07:07] LABS: ALT/SGPT < 14 U/L (16-61)
[2024-06-11] MEDS: PANTOPRAZOLE 40MG TABLET PO SCH (08:29)
[2024-06-11] MEDS: ASPIRIN EC 81 MG TAB PO SCH (09:39)
[2024-06-11] MEDS: ATORVASTATIN 40 MG TAB PO SCH (09:39)
[2024-06-11] MEDS: FUROSEMIDE 40 MG/4 ML VIAL IV SCH ×2 (09:39→17:54)
--- NOTE | 2024-06-11 11:55 | P.PN ---
Subjective Date of Service: 06/11/24 Primary Care Provider: Unknown Chief Complaint: chf exaerbatuiion Subjective: No new changes Review of Systems 10-point ROS is otherwise unremarkable Cardiovascular: Edema Physical Examination - Vital Signs Temperature: 97.9 F Blood Pressure: 131/86 Pulse: 90 Respirations: 15 Pulse Ox (%): 100 - Physical Exam General: Alert, In no apparent distress HEENT: Atraumatic, PERRLA, EOMI Neck: Supple, JVD not distended Respiratory: Clear to auscultation bilaterally, Normal air movement Cardiovascular: Regular rate/rhythm, Normal S1 S2, Edema (2+) Gastrointestinal: Normal bowel sounds, No tenderness Musculoskeletal: No tenderness Integumentary: No rashes Neurological: Normal speech, Normal tone, Normal affect Lymphatics: No axilla or inguinal lymphadenopathy - Studies Laboratory Data (last 24 hrs) 06/10/24 11:39 Sodium 138 Potassium 4.1 BUN 29 H Creatinine 1.52 H Glucose 189 H Magnesium 2.2 Assessment And Plan - Current Problems (Diagnosis) (1) Acute systolic (congestive) heart failure Current Visit: No Status: Acute Plan: will continue diuseis on the patient with once daily lasix. Monitor Is and Os. Keep an eye on his creatine. 8.14 not very good diuresis. Discussed with Dr. Johnson. Will increase the furosemide to bid. restart his valsartan (2) HTN (hypertension) Current Visit: No Status: Chronic Plan: not currently on medications. 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 Will start iss. Will add lantus based on his a1c / a1c is 7.3. Creatine is staying stable. Discharge Plan: Home Plan to discharge in: 24 Hours - Code Status/Comfort Care Code Status Assessed: No Physician Review: Patient Assessed, Agree with Above Assessment and Plan Critical Care: No Time Spent Managing PTS Care (In Minutes): 25
--- NOTE | 2024-06-11 17:13 | P.PN ---
Subjective Date of Service: 06/11/24 Primary Care Provider: Unknown Chief Complaint: chf exaerbatuiion Subjective: No new changes, No C/O voiced, Tolerating diet, Ambulating, Improving Review of Systems 10-point ROS is otherwise unremarkable Physical Examination - Vital Signs Temperature: 98.2 F Blood Pressure: 129/89 Pulse: 93 Respirations: 17 Pulse Ox (%): 100 - Physical Exam General: Alert, In no apparent distress HEENT: Atraumatic, PERRLA, EOMI Neck: Supple, JVD not distended Respiratory: Clear to auscultation bilaterally, Normal air movement Cardiovascular: Regular rate/rhythm, Normal S1 S2 Gastrointestinal: Normal bowel sounds, No tenderness Musculoskeletal: No tenderness Integumentary: No rashes Neurological: Normal speech, Normal tone, Normal affect Lymphatics: No axilla or inguinal lymphadenopathy - Studies Medications List Reviewed: Yes Assessment And Plan - Current Problems (Diagnosis) (1) CKD stage 2 due to type 2 diabetes mellitus Current Visit: Yes Status: Chronic Plan: continue to monitor with current dialysis. (2) Acute systolic (congestive) heart failure Current Visit: No Status: Acute Plan: increase lasix to 40 mg IV BID overnight monitor input and output monitor and correct electrolytes. (3) HTN (hypertension) Current Visit: No Status: Chronic Plan: continue Vlasartan get echo Qualifiers: Hypertension type: primary hypertension Physician Review: Patient Assessed, Agree with Above Assessment and Plan
[2024-06-12 05:24] LABS: Absolute Basophils 0.1 K/uL (0-0.5); Absolute Eosinophils 0.2 K/uL (0-0.5); Absolute Lymphocytes (CBC) 1.4 K/uL (0.7-4.9); Absolute Monocytes 0.6 K/uL (0.1-1.3); Absolute Neutrophil 5.2 K/uL (1.8-8.0); Basophils % 1.1 % (0-1.3); Eosinophils % 2.4 % (0-4.4); Hematocrit 37.3 % (39.6-49.0); Hemoglobin 12.2 g/dL (13.6-17.9); Lymphocytes % 18.6 % (15.3-44.8); MCH 29.1 pg (27.0-35.0); MCHC 32.7 g/dL (32.0-36.0); MCV 88.9 fL (80-100); MPV 9.9 fL (7.6-11.3); Monocytes % 8.5 % (3.3-12.3); Neutrophils % 69.4 % (41.7-73.7); Platelets 158 thou/uL (152-406); Red Cell Distribution Width 18.9 % (12.1-15.2)
[2024-06-12 05:45] LABS: Albumin 2.5 g/dL (3.4-5.0); Albumin/Globulin Ratio 0.7 (1.1-1.8); Alkaline Phosphatase 140 U/L (45-117); Anion Gap 10.6 mEq/L (5.0-15.0); BUN Blood Urea Nitrogen 35 mg/dL (7-18); Bicarbonate 20 mEq/L (21-32); Bilirubin Total 1.2 mg/dL (0.2-1.0); Globulin 3.5 g/dL (2.3-3.5); Glomerular Filtration Rate 53 ml/min (=/>90); Glucose Level 133 mg/dL (74-106); Potassium 3.6 mEq/L (3.5-5.1); Sodium Level 137 mEq/L (136-145)
[2024-06-12 05:47] LABS: ALT/SGPT < 14 U/L (16-61); AST/SGOT < 10 U/L (15-37)
[2024-06-12 08:24] VITALS: O2SAT 97
[2024-06-12] MEDS: VALSARTAN 40 MG TAB PO SCH (08:37)
--- NOTE | 2024-06-12 11:56 | P.PN ---
Subjective Date of Service: 06/12/24 Primary Care Provider: Unknown Chief Complaint: chf exaerbatuiion Subjective: No new changes, No C/O voiced, Tolerating diet, Ambulating, Improving Review of Systems 10-point ROS is otherwise unremarkable Physical Examination - Vital Signs Temperature: 97.3 F Blood Pressure: 128/82 Pulse: 77 Respirations: 14 Pulse Ox (%): 98 - Physical Exam General: Alert, In no apparent distress HEENT: Atraumatic, PERRLA, EOMI Neck: Supple, JVD not distended Respiratory: Clear to auscultation bilaterally, Normal air movement Cardiovascular: Regular rate/rhythm, Normal S1 S2 Gastrointestinal: Normal bowel sounds, No tenderness Musculoskeletal: No tenderness Integumentary: No rashes Neurological: Normal speech, Normal tone, Normal affect Lymphatics: No axilla or inguinal lymphadenopathy - Studies Medications List Reviewed: Yes Assessment And Plan - Current Problems (Diagnosis) (1) CKD stage 2 due to type 2 diabetes mellitus Current Visit: Yes Status: Chronic Plan: continue to monitor with current diuresis. 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 (3) HTN (hypertension) Current Visit: No Status: Chronic Plan: continue Valsartan Qualifiers: Hypertension type: primary hypertension Physician Review: Patient Assessed, Agree with Above Assessment and Plan
--- NOTE | 2024-06-12 12:21 | P.DS ---
Admission Date: 06/10/24 Discharge Date: 06/12/24 Primary Care Provider: Unknown Disposition: ROUTINE DISCHARGE Discharge Condition: GOOD Reason for Admission: chf exaerbatuiion - Problems (1) Acute systolic (congestive) heart failure Current Visit: No Status: Acute (2) HTN (hypertension) Current Visit: No Status: Chronic Qualifiers: Hypertension type: primary hypertension (3) CKD stage 2 due to type 2 diabetes mellitus Current Visit: Yes Status: Chronic Brief History of Present Illness: Former patient of mine. Seen last on 09/19. He has a history of dm2, htn, chf. Has not missed any medications. However he may have eaten a bit of high sodium foods. He was not able to breath last night and came to the ER. The patient had an elevated bnp and pleural effusion. Was sent to IR for thoracentesis. I am awaiting a report on that procedure. He is currently in his room. Has a cough improved sob Hospital Course: Patient was admitted for chf. Was seen by Dr. Johnson. He was diuresis well. He can be discharged home. Follow up with his Regular sample distributor Dr. Interiano thank you for allowing me to take part in his care. Vital Signs/Physical Exam: Temp Pulse Resp BP Pulse Ox 97.3 F 77 14 128/82 98 06/12/24 11:56 06/12/24 11:56 06/12/24 11:56 06/12/24 11:56 06/12/24 11:56 General: Alert, In no apparent distress HEENT: Atraumatic, PERRLA, EOMI Neck: Supple, JVD not distended Respiratory: Clear to auscultation bilaterally, Normal air movement Cardiovascular: Regular rate/rhythm, Normal S1 S2 Gastrointestinal: Normal bowel sounds, No tenderness Musculoskeletal: No tenderness Integumentary: No rashes Neurological: Normal speech, Normal tone, Normal affect Lymphatics: No axilla or inguinal lymphadenopathy Laboratory Data at Discharge: WBC 7.50 thou/uL (4.3-10.9) 06/12/24 05:13 Hgb 12.2 g/dL (13.6-17.9) L 06/12/24 05:13 Hct 37.3 % (39.6-49.0) L 06/12/24 05:13 Plt Count 158 thou/uL (152-406) 06/12/24 05:13 Sodium 137 mEq/L (136-145) 06/12/24 05:13 Potassium 3.6 mEq/L (3.5-5.1) 06/12/24 05:13 BUN 35 mg/dL (7-18) H 06/12/24 05:13 Creatinine 1.54 mg/dL (0.70-1.30) H 06/12/24 05:13 Glucose 133 mg/dL (74-106) H 06/12/24 05:13 Magnesium 2.0 mg/dL (1.6-2.4) 06/11/24 06:24 Total Bilirubin 1.2 mg/dL (0.2-1.0) H 06/12/24 05:13 AST < 10 U/L (15-37) L 06/12/24 05:13 ALT < 14 U/L (16-61) L 06/12/24 05:13 Alkaline Phosphatase 140 U/L (45-117) H 06/12/24 05:13 Triglycerides 60 mg/dL (<150) 06/11/24 06:24 Cholesterol 74 mg/dL (<200) 06/11/24 06:24 HDL Cholesterol 25 mg/dL (40-60) L 06/11/24 06:24 Cholesterol/HDL Ratio 2.96 06/11/24 06:24 Home Medications: Aspirin [Aspirin EC 81 MG] 1 tab PO DAILY 09/28/22 Atorvastatin Calcium 1 tab PO DAILY 09/28/22 Carvedilol [Coreg] 1 tab PO BID 09/28/22 Clopidogrel Bisulfate [Plavix*] 1 tab PO DAILY 09/28/22 Dapagliflozin/Metformin HCl [Xigduo Xr 10 mg-1,000 mg Tab] 1 tab PO DAILY 09/28/22 Niacin [Niacin ER] 1 tab PO BEDTIME 09/28/22 Furosemide 1 tab PO DAILY 30 Days #30 tab 09/30/22 Diet: ADA Activity: Ad ash Followup: JORGE PATEL [Primary Care Provider] - Jesus Interiano MD [OUTSIDE PHYSICIAN] - Time spent managing pt's care (in minutes): 30
[2024-06-12 12:27] VITALS: BP 115/81; TEMP 97
[2024-06-12] MEDS ORDERED: PNEUMOCOCCAL VACCINE 0.5 ML IMVAC ONE (14:00)
--- NOTE | 2024-06-12 16:26 | EKG ---
Test Date: 2024-06-10 Test Time: 11:03:36 Door Slinger: MARTIN MEASUREMENT RESULTS: Intervals: Rate: 95 FL: 160 QRSD: 90 QT: 366 QTc: 459 Gracey: P: 25 FL: 160 QRS: -38 T: 120 INTERPRETIVE STATEMENTS: Normal sinus rhythm Left axis deviation Low voltage QRS Cannot rule out Anterior infarct, age undetermined Abnormal ECG Compared to ECG 04/08/2023 14:18:14 Myocardial infarct finding now present T-wave abnormality no longer present Possible ischemia no longer present Prolonged QT interval no longer present Electronically Signed On 06-12-24 16:24:39 CDT by Jayson Johnson
== END 2024-06-12 13:03 | disposition home or self-care (01) | DRG 291 ==
LOC: ER 10:35 → ERHOLD 13:03 → 2ND 13:56
PROVIDERS: ADMIT Internal Medicine; ATTEND Internal Medicine
PROC: 0W993ZX Drainage of Right Pleural Cavity, Percutaneous Approach, Diagnostic (ICD-10-PCS; principal; 2024-06-10)
DX: I13.0 Hypertensive heart and chronic kidney disease with heart failure and stage 1 through stage 4 chronic kidney disease, or unspecified chronic kidney disease (principal); I50.21 Acute systolic (congestive) heart failure; J96.91 Respiratory failure, unspecified with hypoxia; J90 Pleural effusion, not elsewhere classified; N18.2 Chronic kidney disease, stage 2 (mild); E11.22 Type 2 diabetes mellitus with diabetic chronic kidney disease; R05.9 Cough, unspecified; I25.2 Old myocardial infarction; Z95.5 Presence of coronary angioplasty implant and graft; Z79.82 Long term (current) use of aspirin; Z79.02 Long term (current) use of antithrombotics/antiplatelets; Z79.84 Long term (current) use of oral hypoglycemic drugs; Z79.899 Other long term (current) drug therapy; Z85.038 Personal history of other malignant neoplasm of large intestine; Z90.49 Acquired absence of other specified parts of digestive tract; Z82.49 Family history of ischemic heart disease and other diseases of the circulatory system; Z83.3 Family history of diabetes mellitus
CPT/HCPCS: 32555; 36415; 71045; 80048; 80053; 80061; 82947; 83036; 83735; 83880; 84443; 84484; 85025; 93005; 96374; 99285; J1650; J1815; J1940

== ENCOUNTER 2024-07-15 16:49 | Emergency (ER) | payer OTHER, SELFPAY ==
[2024-07-15] MEDS ORDERED: KETOROLAC 30 MG/ML INJ ONE (18:12)
[2024-07-15] MEDS ORDERED: NA CHLORIDE 0.9% 1,000 ML ONE (18:13)
[2024-07-15] MEDS ORDERED: HYDROCODONE/APAP 5/325 MG TAB ONE (18:13)
--- NOTE | 2024-07-15 18:20 | RAD REPORT ---
EXAMINATION: CT PELVIS WITHOUT CONTRAST CLINICAL INDICATION: Male, 53 years old.[facility] MAIN Trauma;Pain Bed Name: 2 TECHNIQUE: CT pelvis was performed, without IV contrast, as per department protocol. Axial, sagittal and coronal reconstructions were obtained. One or more of the following dose reduction techniques were used: Automated exposure control, adjustment of the mA and/or kV according to patient size, and/ or iterative reconstruction. Unless otherwise specified, incidental findings do not require dedicated imaging follow-up. COMPARISON: No prior exam. FINDINGS: The lack of intravenous contrast limits the sensitivity of this exam for evaluation of solid visceral organs, vascular structures, and retroperitoneum. MUSCULOSKELETAL: No acute or suspicious osseous abnormality. Bilateral sacroiliac joints show degener ative changes with some ankylosis on the left. Moderate spondylosis of the lumbosacral junction. URINARY SYSTEM: No abnormalities of the included kidneys and ureters. Diffuse bladder wall thickening . GASTROINTESTINAL TRACT: Included small bowel is normal in caliber. No wall thickening or bowel inflam matory changes. Up to moderate free ascites. No free air LYMPH NODES: No lymphadenopathy. ABDOMINAL AORTA AND OTHER VESSELS: Normal caliber aorta and IVC. ADDITIONAL FINDINGS: Diffuse body wall edema. Surgical tract in the right lower anterior abdominal wa ll, may relate to a site of ostomy closure. IMPRESSION: No acute abnormalities of the bony pelvis. Up to moderate free ascites. Diffuse body wall edema. Please correlate clinically for fluid overload. Diffuse bladder wall thickening. This could relate to ongoing cystitis, or represent a component of s ystemic edema. Evaluation is limited by lack of IV contrast.
[2024-07-15 18:31] LABS: Absolute Basophils 0.1 K/uL (0-0.5); Absolute Eosinophils 0.1 K/uL (0-0.5); Absolute Monocytes 0.7 K/uL (0.1-1.3); Absolute Neutrophil 4.5 K/uL (1.8-8.0); Basophils % 0.8 % (0-1.3); Eosinophils % 1.7 % (0-4.4); Hematocrit 45.3 % (39.6-49.0); Hemoglobin 14.5 g/dL (13.6-17.9); Lymphocytes % 26.6 % (15.3-44.8); MCH 27.7 pg (27.0-35.0); MCHC 32.1 g/dL (32.0-36.0); MCV 86.5 fL (80-100); Monocytes % 10.1 % (3.3-12.3); Neutrophils % 60.8 % (41.7-73.7); Nucleated Red Blood Cells % 0.3 % (0-0); Platelets 158 thou/uL (152-406); RBC Red Blood Cell Count 5.24 M/uL (4.33-5.43)
[2024-07-15 18:50] LABS: Albumin 2.8 g/dL (3.4-5.0); Albumin/Globulin Ratio 0.7 (1.1-1.8); Anion Gap 13.3 mEq/L (5.0-15.0); Bilirubin Direct 0.6 mg/dL (0-0.2); Bilirubin Indirect, Calculated 0.8 mg/dL (0.2-0.8); Bilirubin Total 1.4 mg/dL (0.2-1.0); Globulin 4.2 g/dL (2.3-3.5); Potassium 4.3 mEq/L (3.5-5.1); Troponin High Sensitivity 9.9 pg/mL (<58.9)
--- NOTE | 2024-07-15 18:58 | ER ---
Nurse's Notes [facility] Name: Royce Farr Age: 53 yrs Sex: Male : 1970 Arrival Date: 07/15/2024 Time: 16:49 Bed 3 Private MD: Diagnosis: Sciatica, right side;Pain in right hip Presentation: 07/15 17:05 Chief complaint: Patient states: sciatic pain, back pain , difficult to walk, right hip iw feels inflamed, went to urgent care yesterday and had xrays done , he fell three weeks ago , his legs got tangled while getting in the car. he was recently admitted for fluid on his lungs. 17:05 Acuity: SANDRO 3 iw 19:34 Coronavirus screen: Client denies travel out of the [place] in the last 14 days. Ebola cm10 Screen: Patient denies travel to an Ebola-affected area in the 21 days before illness onset. No symptoms or risks identified at this time. Initial Sepsis Screen: Does the patient meet any 2 criteria? No. Patient's initial sepsis screen is negative. Does the patient have a suspected source of infection? No. Patient's initial sepsis screen is negative. Risk Assessment: Do you want to hurt yourself or someone else? Patient reports no desire to harm self or others. Onset of symptoms is unknown. 19:34 Method Of Arrival: Wheelchair cm10 Historical: - Allergies: 17:08 No Known Allergies; iw - PMHx: 17:08 Myocardial infarction; diabetes mellitus; Congestive heart failure; Hypertensive iw disorder; stage 4 colon cancer (September 2022); - PSHx: 17:08 bowel resection; ileostomy reversal; iw 17:10 defibrillator; iw - Immunization history:: Adult Immunizations up to date. - Infectious Disease History:: Denies. - Social history:: Smoking status: . - Hospitalizations: : The patient was recently seen at [facility], for unrelated complaints. Screenin:25 [facility] ED Fall Risk Assessment (Adult) History of falling in the last 3 months, cm10 including since admission Yes- single mechanical fall (1 pt) Confusion or Disorientation No (0 pts) Intoxicated or Sedated No (0 pts) Impaired Gait Yes (1 pt) Mobility Assist Device Used Yes (1 pt) Altered Elimination No (0 pt) Score/Fall Risk Level 0 - 2 = Low Risk Oriented to surroundings, Maintained a safe environment, Hourly rounding (assess needs \T\ fall precautionary measures) done. Abuse screen: Denies threats or abuse. Denies injuries from another. Nutritional screening: No deficits noted. Tuberculosis screening: No symptoms or risk factors identified. Assessment: 18:25 General: Appears in no apparent distress. comfortable, Behavior is calm, cooperative. cm10 Pain: Complains of pain in pelvis. Neuro: No deficits noted. Level of Consciousness is awake, alert, obeys commands, Oriented to person, place, time, situation, Appropriate for age. Respiratory: No deficits noted. Airway is patent Respiratory effort is even, unlabored, Respiratory pattern is regular, symmetrical, Breath sounds are clear bilaterally. Musculoskeletal: Reports pain in pelvis. Vital Signs: 17:08 BP 118 / 93; Pulse 96; Resp 16; Temp 97.4; Pulse Ox 95% on R/A; Weight 56.7 kg; Height iw 5 ft. 5 in. ; Pain 5/10; 19:32 BP 130 / 104; Pulse 93; Resp 19; Pulse Ox 96% on R/A; cm10 17:08 Body Mass Index 20.80 (56.70 kg, 165.1 cm) iw 17:08 Pain Scale: Adult iw ED Course: 16:56 Patient arrived in ED. mg5 16:57 Penelope Bailon FNP-C is PHCP. kb 16:58 Caio Bello MD is Attending Physician. kb 17:07 PHCP role handed off by Penelope Bailon FNP-C dr5 17:07 Francois Thacker FNP-C is PHCP. dr5 17:08 Triage completed. iw 17:09 Arm band placed on. iw 17:51 Patient placed in an exam room, on a stretcher. ll1 17:52 CT Pelvis wo Cont In Process Unspecified. EDMS 18:11 Adriana Wise, RN is Primary Nurse. cm10 18:27 Basic Metabolic Panel Sent. cm10 18:27 CBC with Diff Sent. cm10 18:27 Hepatic Function Sent. cm10 18:27 Magnesium Sent. cm10 18:27 Troponin High Sensitivity Sent. cm10 18:28 Initial lab(s) drawn, by me, sent to lab. EKG done, by ED staff, reviewed by Francois NICHOLAS. Inserted saline lock: 22 gauge in left forearm, using aseptic technique. Blood collected. Flushed with 10 mL NS. 19:34 Patient has correct armband on for positive identification. Provided Education on: cm10 Follow-up instructions. Client placed on continuous cardiac and pulse oximetry monitoring. NIBP monitoring applied. front desk monitor on. 19:34 No provider procedures requiring assistance completed. IV discontinued, intact, cm10 bleeding controlled, No redness/swelling at site. Pressure dressing applied. Administered Medications: 18:27 Drug: Ketorolac IVP 15 mg IVP once Route: IVP; Site: left forearm; cm10 19:35 Follow up: Response: No adverse reaction cm10 18:27 Drug: NS 0.9% IV 1000 ml IV at 1000 ml once Route: IV; Rate: 1000 ml; Site: left cm10 forearm; 18:42 Follow up: Response: No adverse reaction; IV Status: Order to discontinue infusion; IV cm10 Intake: 200ml 18:27 Drug: HYDROcodone-acetaminophen PO 5 mg-325 mg 1 tabs PO once Route: PO; cm10 19:35 Follow up: Response: No adverse reaction cm10 Medication: 19:35 VIS not applicable for this client. cm10 Intake: 18:42 IV: 200ml; Total: 200ml. cm10 Outcome: 18:58 Discharge ordered by MD. dr5 19:34 Discharged to home via wheelchair, with family, cm10 19:34 Condition: good 19:34 Discharge instructions given to patient, Instructed on discharge instructions, follow up and referral plans. medication usage, Demonstrated understanding of instructions, follow-up care, medications, Prescriptions given X 1, 19:35 Patient left the ED. cm10 Signatures: Dispatcher [employer] EDID Penelope Bailon FNP-C DIEGO-CkKarissa Webster RN RN iw Vadim Pantoja RN RN ll1 Adriana Wise RN RN cm10 Yuridia Davis mg5 Francois Thacker FNP-C FNP-Cdr5 Corrections: (The following items were deleted from the chart) 17:11 17:08 BP 118 / 93; Pulse 96bpm; Resp 16bpm; Pulse Ox 95% RA; Temp 97.4F; iw iw
--- NOTE | 2024-07-15 18:58 | EDPHYS ---
Physician Documentation [facility] Name: Royce Farr Age: 53 yrs Sex: Male : 1970 Arrival Date: 07/15/2024 Time: 16:49 Bed 3 Private MD: ED Physician Caio Bello HPI: 07/15 17:37 This 53 yrs old Male presents to ER via Ambulatory with complaints of Fall dr5 Injury, Hip Pain, Back Pain. 17:37 This is a 53 year old male with a hx of NM, DM, CHF, HTN for a mechanical fall that dr5 started on 06/12/24 when he was trying to get into a vehicle, tripped, and fell injuring his right hip. Pt has been to urgent care and had x-rays completed without fracture. Pt reports that he has been ambulating with pain to the right hip / leg. Pt describes pain as electrical in nature radiating down right leg.. Historical: - Allergies: 17:08 No Known Allergies; iw - PMHx: 17:08 Myocardial infarction; diabetes mellitus; Congestive heart failure; Hypertensive iw disorder; stage 4 colon cancer (September 2022); - PSHx: 17:08 bowel resection; ileostomy reversal; iw 17:10 defibrillator; iw - Immunization history:: Adult Immunizations up to date. - Infectious Disease History:: Denies. - Social history:: Smoking status: . - Hospitalizations: : The patient was recently seen at [facility], for unrelated complaints. ROS: 18:49 Constitutional: as per hpi Cardiovascular: Negative for chest pain or palpitations dr5 Respiratory: Negative for shortness of breath, cough, wheezing, and pleuritic chest pain. MS/Extremity: Right hip / leg pain Exam: 18:42 Constitutional: This is a well developed, well nourished patient who is awake, alert, dr5 and in no acute distress. Cardiovascular: Regular rate and rhythm with a normal S1 and S2. Normal PMI, no JVD. No pulse deficits. 18:43 ECG was reviewed by the Attending Physician. dr5 19:13 Respiratory: Lungs have equal breath sounds bilaterally, clear to auscultation. No dr5 rales, rhonchi or wheezes noted. No increased work of breathing, no retractions or nasal flaring. Back: No tenderness to palpation. Skin: Warm, dry with normal turgor. Normal color with no rashes, no lesions, and no evidence of cellulitis. No contusion noted over right hip, right leg, or right lower back. No rash appreciated. Vital Signs: 17:08 BP 118 / 93; Pulse 96; Resp 16; Temp 97.4; Pulse Ox 95% on R/A; Weight 56.7 kg; Height iw 5 ft. 5 in. ; Pain 5/10; 19:32 BP 130 / 104; Pulse 93; Resp 19; Pulse Ox 96% on R/A; cm10 17:08 Body Mass Index 20.80 (56.70 kg, 165.1 cm) iw 17:08 Pain Scale: Adult iw MDM: 17:01 Patient medically screened. kb 18:50 Differential diagnosis: sprain, strain, Femur Fracture, Pelvic Fracture, Sciatic Nerve dr5 Pain. Data reviewed: vital signs, nurses notes, old medical records, from previous admission. 19:00 Consideration of Admission/Observation Escalation of care including dr5 admission/observation considered. due to weakness / recent hospitalization. Historians other than the Patient: Parent: Mother. Care significantly affected by the following chronic conditions: Diabetes, Hypertension, Congestive Heart Failure. Care significantly affected by the following chronic conditions: NM. Counseling: I had a detailed discussion with the patient and/or guardian regarding the historical points, exam findings, and any diagnostic results supporting the discharge/admit diagnosis, lab results, radiology results, the need for outpatient follow up, to return to the emergency department if symptoms worsen or persist or if there are any questions or concerns that arise at home. 19:05 ED course: Pt reports his pain has significantly improved. . dr5 19:14 ED course: Pt is able to ambulate with assistance. Patient able to bear weight on both dr5 legs without worsening of pain and with slow, steady gait.. 19:18 Medication response: Toradol markedly relieved the patient's pain, [place]. dr5 19:54 ED course: CT scan results and bloodwork printed out so patient can take to his PCP.. dr5 ED course: No fracture noted on CT scan. Will have patient follow up with PCP. Will give Gabapentin to flexographic press helper with sciatic nerve pain.. 07/15 17:25 Order name: Basic Metabolic Panel; Complete Time: 18:55 dr5 07/15 17:25 Order name: CBC with Diff; Complete Time: 19:13 dr5 07/15 17:25 Order name: Hepatic Function; Complete Time: 18:55 dr5 07/15 17:25 Order name: Magnesium; Complete Time: 18:55 dr5 07/15 17:25 Order name: Troponin High Sensitivity; Complete Time: 18:55 dr5 07/15 17:25 Order name: CT Pelvis wo Cont; Complete Time: 18:28 dr5 07/15 17:25 Order name: EKG; Complete Time: 17:25 dr5 07/15 17:25 Order name: Cardiac monitoring; Complete Time: 18:55 dr5 07/15 17:25 Order name: EKG - Nurse/Tech; Complete Time: 18:27 dr5 07/15 17:25 Order name: IV Saline Lock; Complete Time: 18:27 dr5 07/15 17:25 Order name: Labs collected and sent; Complete Time: 18:27 dr5 07/15 17:25 Order name: NPO; Complete Time: 18:27 dr5 07/15 17:25 Order name: O2 Per Protocol; Complete Time: 18:27 dr5 07/15 17:25 Order name: O2 Sat Monitoring; Complete Time: 18:27 dr5 EC:43 Rate is 94 beats/min. Rhythm is regular. QRS [place] is Normal. GA interval is normal at dr5 200 msec. QRS interval is normal at 116 msec. QT interval is normal at 392 msec. Administered Medications: 18:27 Drug: Ketorolac IVP 15 mg IVP once Route: IVP; Site: left forearm; cm10 19:35 Follow up: Response: No adverse reaction cm10 18:27 Drug: NS 0.9% IV 1000 ml IV at 1000 ml once Route: IV; Rate: 1000 ml; Site: left cm10 forearm; 18:42 Follow up: Response: No adverse reaction; IV Status: Order to discontinue infusion; IV cm10 Intake: 200ml 18:27 Drug: HYDROcodone-acetaminophen PO 5 mg-325 mg 1 tabs PO once Route: PO; cm10 19:35 Follow up: Response: No adverse reaction cm10 Disposition Summary: 07/15/24 18:58 Discharge Ordered Notes: Location: Home dr5 Condition: Stable dr5 Diagnosis - Sciatica, right side dr5 - Pain in right hip dr5 Followup: dr5 - With: Emergency Department - When: As needed - Reason: Worsening of condition Followup: dr5 - With: Private Physician - When: 2 - 3 days - Reason: Recheck today's complaints, Continuance of care, Re-evaluation by your physician Discharge Instructions: - Discharge Summary Sheet dr5 - Hip Pain dr5 - Sciatica, [id number] dr5 Forms: - Medication Reconciliation Form dr5 - Antibiotic Education dr5 - Patient Portal Instructions dr5 - Leadership Thank You Letter dr5 Prescriptions: - Neurontin 300 mg Oral capsule - take 1 capsule ORAL route 3 times per day As needed; 20 capsule; Refills: 0, dr5 Product Selection Permitted Signatures: Dispatcher [employer] EDMS Penelope Bailon, TEST ENGINEERING TECHNICIAN-C TEST ENGINEERING TECHNICIAN-Ckb Karissa Downing, NEY RN iw Adriana Wise RN RN cm10 Farncois Thacker, TEST ENGINEERING TECHNICIAN-C TEST ENGINEERING TECHNICIAN-Cdr5 Corrections: (The following items were deleted from the chart) 17:25 17:25 BASIC METABOLIC PANEL+C.LAB.BRZ ordered. EDMS EDMS 17:25 17:25 CBC+H.LAB.BRZ ordered. EDMS EDMS 17:25 17:25 HEPATIC FUNCTION+C.LAB.BRZ ordered. EDMS EDMS 17:25 17:25 MAGNESIUM+C.LAB.BRZ ordered. EDMS EDMS 17:25 17:25 Troponin High Sensitivity+C.LAB.BRZ ordered. EDMS EDMS 17:25 17:25 Urinalysis+U.LAB.BRZ ordered. EDMS EDMS 17:25 17:25 Pelvis Wo Cont+CT.RAD.BRZ ordered. EDMS EDMS 18:50 17:37 This is a 53 year old male with a hx of NM, DM, CHF, HTN for a mechanical fall dr5 that started on 06/12/24 when he was trying to get into a vehicle, tripped, and fell injuring his right hip. Pt has been to urgent care and had x-rays completed without fracture. Pt reports that he has been ambulating with pain to the right hip / leg.. dr5
[2024-07-15 19:45] VITALS: TEMP 97.4
[2024-07-15 19:55] VITALS: BP 130/104; O2SAT 96
--- NOTE | 2024-07-17 12:24 | EKG ---
Test Date: 2024-07-15 Test Time: 18:19:35 Metal Burrer: NINI MEASUREMENT RESULTS: Intervals: Rate: 94 OR: 200 QRSD: 116 QT: 392 QTc: 490 Simpson: P: 15 OR: 200 QRS: 177 T: 64 INTERPRETIVE STATEMENTS: Normal sinus rhythm Right bundle branch block Septal infarct, age undetermined Lateral infarct, age undetermined Abnormal ECG Compared to ECG 06/10/2024 11:03:36 Right bundle-branch block now present Left-axis deviation no longer present Myocardial infarct finding still present Electronically Signed On 07-17-24 12:18:23 CDT by Jayson Johnson
== END 2024-07-15 19:35 | disposition home or self-care (01) ==
LOC: ER 16:49
DX: M54.31 Sciatica, right side (principal); E11.9 Type 2 diabetes mellitus without complications; I10 Essential (primary) hypertension; I50.9 Heart failure, unspecified; Z95.810 Presence of automatic (implantable) cardiac defibrillator
CPT/HCPCS: 85025; 80048; 36415; 83735; 80076; 84484; 72192; J7030; 93005; 96374; 99285

== ENCOUNTER 2024-07-19 20:01 | Inpatient (IN) | payer OTHER ==
[2024-07-19] MEDS ORDERED: AMOX/K CLAV 875 MG TAB ONE (21:11)
[2024-07-19] MEDS ORDERED: NYSTATIN 100MU/GM CREAM 15GM TOP ONE (21:11)
[2024-07-19] MEDS ORDERED: NA CHLORIDE 0.9% 1,000 ML ONE (22:00)
[2024-07-19] MEDS ORDERED: NA CHLORIDE 0.9% 100 ML ONE (22:00)
[2024-07-19] MEDS ORDERED: AMPICILLIN/SULBACTAM 3GM/VIAL ONE (22:00)
[2024-07-19] MEDS ORDERED: ONDANSETRON 4 MG/2 ML VIAL ONE (22:00)
[2024-07-19] MEDS ORDERED: MORPHINE 2 MG/ML SYR ONE (22:00)
[2024-07-19] MEDS ORDERED: FLUCONAZOLE 100 MG TAB ONE (22:00)
[2024-07-19 22:06] LABS: Absolute Basophils 0.1 K/uL (0-0.5); Absolute Eosinophils 0.1 K/uL (0-0.5); Absolute Lymphocytes (CBC) 1.4 K/uL (0.7-4.9); Absolute Monocytes 0.7 K/uL (0.1-1.3); Absolute Neutrophil 4.2 K/uL (1.8-8.0); Basophils % 1.2 % (0-1.3); Eosinophils % 1.9 % (0-4.4); Hematocrit 45.1 % (39.6-49.0); Hemoglobin 14.5 g/dL (13.6-17.9); Lymphocytes % 21.4 % (15.3-44.8); MCH 27.8 pg (27.0-35.0); MCHC 32.2 g/dL (32.0-36.0); MCV 86.4 fL (80-100); Monocytes % 10.3 % (3.3-12.3); Neutrophils % 65.2 % (41.7-73.7); Platelets 130 thou/uL (152-406); RBC Red Blood Cell Count 5.22 M/uL (4.33-5.43); Red Cell Distribution Width 18.4 % (12.1-15.2)
--- NOTE | 2024-07-19 22:21 | RAD REPORT ---
EXAMINATION: ULTRASOUND DUPLEX OF SCROTUM AND TESTICLES CLINICAL INDICATION: Testicular pain TECHNIQUE: Duplex scan of the scrotal contents was performed including real-time color and spectral D oppler ultrasonography with arterial inflow and venous outflow. COMPARISON: No prior exam. FINDINGS: Right testicle measures 4.4 x 2.8 x 3.2 cm. Mildly inhomogeneous echotexture. Right epididymis not vi sualized. Left testicle measures 4 x 2.3 x 3.2 cm. Mildly homogeneous echotexture. Mildly increased flow left e pididymis. Each testicle appears to demonstrate diminished blood flow. IMPRESSION: Mild left epididymitis Each testicle appears to demonstrate diminished blood flow. I suspect this is due to technical facto rs rather than pathology. A bilateral testicular torsion is doubtful. If the patient has clinical symptoms to suggest this then a follow-up testicular ultrasound would be recommended for reevaluation
--- NOTE | 2024-07-19 22:23 | EDPHYS ---
Physician Documentation [facility] Name: Royce Farr Age: 53 yrs Sex: Male : 1970 Arrival Date: 07/19/2024 Time: 20:01 Bed 15 Private MD: ED Physician Caio Bello HPI: 07/19 21:20 This 53 yrs old Male presents to ER via EMS with complaints of Groin Pain. gustavo 21:20 The patient presents with cellulitis of the pelvis, the patient presents with a swollen gustavo area of the left testicle. Description: erythematous, swollen. Onset: The symptoms/episode began/occurred 3 day(s) ago. Possible cause(s): unknown. The patient presents with scrotal pain, swelling, that is moderate, of the left inguinal area. Modifying factors: The symptoms are alleviated by remaining still, the symptoms are aggravated by movement, pressure. Associated signs and symptoms: The patient has no apparent associated signs or symptoms. Severity of symptoms: At their worst the symptoms were moderate, in the emergency department the symptoms are unchanged. Historical: - Allergies: 20:06 No Known Allergies; me1 - PMHx: 20:06 Congestive heart failure; diabetes mellitus; Hypertensive disorder; Myocardial me1 infarction; stage 4 colon cancer (September 2022); - PSHx: 20:06 bowel resection; ileostomy reversal; defibrillator; me1 - Immunization history:: Adult Immunizations up to date. - Infectious Disease History:: Denies. - Social history:: Smoking status: Patient denies any tobacco usage or history of. - Family history:: not pertinent. ROS: 21:20 Constitutional: Negative for fever, chills, and weight loss, Eyes: Negative for injury, gustavo pain, redness, and discharge, ENT: Negative for injury, pain, and discharge, Neck: Negative for injury, pain, and swelling, Cardiovascular: Negative for chest pain, palpitations, and edema, Respiratory: Negative for shortness of breath, cough, wheezing, and pleuritic chest pain, Abdomen/GI: Negative for abdominal pain, nausea, vomiting, diarrhea, and constipation, Back: Negative for injury and pain, Neuro: Negative for headache, weakness, numbness, tingling, and seizure, Psych: Negative for depression, anxiety, suicide ideation, homicidal ideation, and hallucinations, Allergy/Immunology: Negative for hives, rash, and allergies, Endocrine: Negative for neck swelling, polydipsia, polyuria, polyphagia, and marked weight changes, Hematologic/Lymphatic: Negative for swollen nodes, abnormal bleeding, and unusual bruising, 21:20 : Positive for testicular pain of the left testicle, Exam: 21:20 Constitutional: This is a well developed, well nourished patient who is awake, alert, gustavo and in no acute distress. Head/Face: Normocephalic, atraumatic. Eyes: Pupils equal round and reactive to light, extra-ocular motions intact. Lids and lashes normal. Conjunctiva and sclera are non-icteric and not injected. Cornea within normal limits. Periorbital areas with no swelling, redness, or edema. ENT: Nares patent. No nasal discharge, no septal abnormalities noted. Tympanic membranes are normal and external auditory canals are clear. Oropharynx with no redness, swelling, or masses, exudates, or evidence of obstruction, uvula midline. Mucous membranes moist. Neck: Trachea midline, no thyromegaly or masses palpated, and no cervical lymphadenopathy. Supple, full range of motion without nuchal rigidity, or vertebral point tenderness. No Meningismus. Chest/axilla: Normal chest wall appearance and motion. Nontender with no deformity. No lesions are appreciated. Cardiovascular: Regular rate and rhythm with a normal S1 and S2. No gallops, murmurs, or rubs. Normal PMI, no JVD. No pulse deficits. Respiratory: Lungs have equal breath sounds bilaterally, clear to auscultation and percussion. No rales, rhonchi or wheezes noted. No increased work of breathing, no retractions or nasal flaring. Abdomen/GI: Soft, non-tender, with normal bowel sounds. No distension or tympany. No guarding or rebound. No evidence of tenderness throughout. Back: No spinal tenderness. No costovertebral tenderness. Full range of motion. Neuro: Awake and alert, GCS 15, oriented to person, place, time, and situation. Cranial nerves II-XII grossly intact. Motor strength 5/5 in all extremities. Sensory grossly intact. Cerebellar exam normal. Normal gait. Psych: Awake, alert, with orientation to person, place and time. Behavior, mood, and affect are within normal limits. 21:20 ECG was reviewed by the Attending Physician. 21:20 Abdomen/GI: Inspection: abdomen appears normal, Bowel sounds: normal, Palpation: abdomen is soft and non-tender, Liver: no appreciated palpable abnormalities, Hernia: not appreciated, 21:20 : CVA tenderness, is absent, Male external genitalia: normal, Bladder: is normal, Sexual behavior: the patient is not sexually active, 21:20 Skin: induration, that is mild is noted, that is moderate is noted, located on the left testicle, 21:45 ECG was reviewed by the Attending Physician. [facility] 22:23 ECG was reviewed by the Attending Physician. [facility] Vital Signs: 20:04 BP 112 / 96; Pulse 94; Resp 15; Temp 97.7; Pulse Ox 95% ; Weight 57.15 kg; Height 5 ft. me1 5 in. ; Pain 5/10; 21:00 BP 120 / 99; Pulse 93; Resp 16; Pulse Ox 97% ; me1 22:00 BP 118 / 95; Pulse 93; Resp 21; Pulse Ox 92% on R/A; me1 22:35 Pulse Ox 88% on R/A; me1 22:36 Pulse Ox 99% on 3 lpm NC; me1 22:43 Pain 3/10; me1 23:00 BP 109 / 90; Pulse 88; Resp 18; Pulse Ox 99% ; me1 23:45 BP 106 / 90; Pulse 86; Resp 17; Pulse Ox 97% ; me1 20:04 Body Mass Index 20.97 (57.15 kg, 165.1 cm) me1 20:04 Pain Scale: Adult me1 22:43 Pain Scale: Adult me1 MDM: 20:05 Patient medically screened. [facility] 21:26 Differential diagnosis: abscess, cellulitis, nonspecific abdominal pain, UTI. Data [facility] reviewed: vital signs, nurses notes, lab test result(s), EKG, radiologic studies, plain films, ultrasound. Consideration of Admission/Observation Patient was admitted/placed on observation. Escalation of care including admission/observation considered. I considered the following discharge prescriptions or medication management in the emergency department Medications were administered in the Emergency Department. See MAR. Independent interpretation of the following test(s) in the Emergency Department EKG: See my EKG interpretation above. Test considered but Not performed: CT: no ct ab/ pelvis. Historians other than the Patient: EMS: ems well informed. Care significantly affected by the following chronic conditions: Diabetes, Hypertension, Congestive Heart Failure, Cancer. 07/19 21:11 Order name: Basic Metabolic Panel; Complete Time: 22:46 [facility] 07/19 21:11 Order name: CBC with Diff; Complete Time: 22:37 [facility] 07/19 21:11 Order name: LFT's; Complete Time: 22:46 [facility] 07/19 21:11 Order name: Magnesium; Complete Time: 22:46 [facility] 07/19 21:11 Order name: NT PRO-BNP; Complete Time: 22:46 [facility] 07/19 21:11 Order name: PT-INR; Complete Time: 22:38 [facility] 07/19 21:11 Order name: Troponin HS; Complete Time: 22:46 [facility] 07/19 23:33 Order name: Urinalysis w/ reflexes EDMS 07/19 23:33 Order name: CBC with Automated Diff EDMS 07/19 23:33 Order name: CBC with Automated Diff EDPA 07/19 23:33 Order name: Comprehensive Metabolic Panel [facility] 07/19 23:33 Order name: Comprehensive Metabolic Panel [facility] 07/19 21:11 Order name: XRAY Chest (1 view); Complete Time: 22:38 [facility] 07/19 21:11 Order name: US Scrotum Testicles; Complete Time: 22:23 [facility] 07/19 21:11 Order name: EKG; Complete Time: 21:12 [facility] 07/19 21:11 Order name: Cardiac monitoring; Complete Time: 22:14 [facility] 07/19 21:11 Order name: EKG - Nurse/Tech; Complete Time: 22:14 [facility] 07/19 21:11 Order name: IV Saline Lock; Complete Time: 21:54 [facility] 07/19 21:11 Order name: Labs collected and sent; Complete Time: 21:46 [facility] 07/19 21:11 Order name: O2 Per Protocol; Complete Time: 21:46 [facility] 07/19 21:11 Order name: O2 Sat Monitoring; Complete Time: 21:46 [facility] 07/19 21:11 Order name: Wound Care; Complete Time: 22:15 [facility] EC:23 Rate is 92 beats/min. Rhythm is regular. QRS [place] is Normal. PA interval is normal. QRS gustavo interval is normal. QT interval is normal. No Q waves. T waves are Normal. No ST changes noted. Clinical impression: Abnormal EKG without significant change and No evidence of ischemia. Interpreted by me. Reviewed by me. Administered Medications: 23:04 Discontinued: ns 0.9% 1000 ml IV at 100 ml/hr continuous gustavo 21:12 CANCELLED (Duplicate Order): amoxicillin-mdnbxolxlqo591 mg PO once gustavo 21:12 CANCELLED (Duplicate Order): nystatin-triamcinoloneointment 1 application Topical once gustavo 21:28 CANCELLED (Duplicate Order): ns 0.9% 1000 ml IV at 125 ml/hr continuous gustavo 21:29 CANCELLED (Duplicate Order): ns 0.9% 1000 ml IV at 1 bolus Per protocol; 1000 mL bolus gustavo 21:45 CANCELLED (Duplicate Order): ns 0.9% 500 ml IV at bolus once gustavo 22:14 Drug: Ampicillin-Sulbactam Sodium IVPB 3 grams IVPB once over 30 mins; (mix in 100 mL me1 NS) Route: IVPB; Infused Over: 30 mins; Site: left forearm; 22:44 Follow up: Response: No adverse reaction; IV Status: Completed infusion me1 22:14 Drug: Fluconazole PO 200 mg PO once Route: PO; me1 22:43 Follow up: Response: No adverse reaction me1 22:14 Drug: morphine IVP or IV 2 mg IVP once over 4 mins Route: IVP; Infused Over: 4 mins; ok1 Site: left forearm; 22:43 Follow up: Pain 3/10 Adult; Response: No adverse reaction; Pain is decreased me1 22:14 Drug: Ondansetron IVP 2 mg IVP once; over 2 minutes Route: IVP; Site: left forearm; me1 22:43 Follow up: Response: No adverse reaction; Nausea is decreased me1 22:14 Drug: NS 0.9% IV 1000 ml IV at 100 ml/hr continuous Route: IV; Rate: 100 ml/hr; Site: me1 left forearm; 23:09 Follow up: Response: No adverse reaction; IV Status: Completed infusion me1 22:43 Drug: nystatin Topical Cream 1 application Topical once {Note: groin/scrotum.} Route: me1 Topical; Site: affected area; 22:50 Drug: LevOfloxacin PO 500 mg PO once Route: PO; me1 23:08 Follow up: Response: No adverse reaction ok1 23:14 Drug: Furosemide IVP 20 mg IVP once; give over 2 minutes Route: IVP; Site: left forearm;me1 23:27 Follow up: Response: No adverse reaction me1 Disposition Summary: 07/19/24 22:23 Hospitalization Ordered Notes: Hospitalization Status: Inpatient Admission gustavo Provider: True Mcdowell cha Location: Telemetry/MedSurg (Inpatient) gustavo Condition: Fair gustavo Problem: new gustavo Symptoms: are unchanged gustavo Bed/Room Type: Standard gustavo Room Assignment: 405(07/20/24 00:03) vk Diagnosis - Cellulitis of groin gustavo - Cellulitis, unspecified - left scroutum gustavo - Pleural effusion in other conditions classified elsewhere - right moderate gustavo - Presence of cardiac pacemaker gustavo - Type 2 diabetes mellitus with hyperglycemia gustavo - Candidiasis of other sites - left groin/scroutum gustavo - Epididymitis - mild left gustavo - Chronic kidney disease, unspecified gustavo Forms: - Medication Reconciliation Form gustavo - SBAR form gustavo - Leadership Thank You Letter gustavo Signatures: Dispatcher [employer] EDMS Caio Bello MD MD cha Eddleman, Michelle, RN RN me1 Gunjan Summers Corrections: (The following items were deleted from the chart) 21:12 21:11 Amoxicillin-Clavulanate PO 875 mg PO once ordered. gustavo gustavo 21:12 21:11 Nystatin-Triamcinolone Topical Ointment 1 application Topical once ordered. ugstavo gustavo 21:12 21:12 Scrotum Testicles+US.RAD.BRZ ordered. EDPA EDMS 21:28 21:15 NS 0.9% IV 1000 ml IV at 125 ml/hr continuous ordered. gustavo gustavo 21:29 21:11 NS 0.9% IV 1000 ml IV at 1 bolus Per protocol; 1000 mL bolus ordered. gustavo gustavo 21:45 21:29 NS 0.9% IV 500 ml IV at bolus once ordered. gustavo gustavo 22:24 21:45 Rate is 109 beats/min. QRS [place] is Normal. PA interval is normal. QRS interval is gustavo normal. QT interval is normal. No Q waves. T waves are Normal. No ST changes noted. Clinical impression: Sinus tachycardia and No evidence of ischemia. Interpreted by me. Reviewed by me. gustavo 07/20 00:03 07/19 22:23 gustavo vk
--- NOTE | 2024-07-19 22:23 | ER ---
Nurse's Notes [facility] Name: Royce Farr Age: 53 yrs Sex: Male : 1970 Arrival Date: 07/19/2024 Time: 20:01 Bed 15 Private MD: Diagnosis: Cellulitis of groin;Cellulitis, unspecified-left scroutum;Pleural effusion in other conditions classified elsewhere-right moderate;Presence of cardiac pacemaker;Type 2 diabetes mellitus with hyperglycemia;Candidiasis of other sites-left groin/scroutum;Epididymitis-mild left;Chronic kidney disease, unspecified Presentation: 07/19 20:04 Chief complaint: EMS states: toned out for lift assist and found patient on the floor. me1 c/o groin pain, rash to left inner thigh and a lump to his suprapubic area that he noticed a couple of days ago. Coronavirus screen: Vaccine status: Patient reports receiving the 2nd dose of the covid vaccine. Ebola Screen: No symptoms or risks identified at this time. Initial Sepsis Screen: Does the patient meet any 2 criteria? HR > 90 bpm. No. Patient's initial sepsis screen is negative. Does the patient have a suspected source of infection? No. Patient's initial sepsis screen is negative. Risk Assessment: Do you want to hurt yourself or someone else? Patient reports no desire to harm self or others. Onset of symptoms was July 19, 2024. 20:04 Method Of Arrival: EMS: [facility] 20:04 Acuity: SANDRO 3 me1 Triage Assessment: 20:06 General: Appears uncomfortable, slender, well developed, Behavior is calm, cooperative, me1 appropriate for age, Reports s/p fall. c/o groin pain, rash to left inner thigh and a lump to his suprapubic area that he noticed a couple of days ago. Pain: Complains of pain in groin Pain radiates to right leg and left leg Pain currently is 5 out of 10 on a pain scale. Quality of pain is described as shooting, Pain began gradually, Is continuous. EENT: No signs and/or symptoms were reported regarding the EENT system. Neuro: Level of Consciousness is awake, alert, obeys commands, Oriented to person, place, time, situation, Appropriate for age. Cardiovascular: Patient's skin is warm and dry. Respiratory: Airway is patent Respiratory effort is even, unlabored, Respiratory pattern is regular, symmetrical. GI: No signs and/or symptoms were reported involving the gastrointestinal system. GI: lump to suprapubic area. : Reports pain groin. Derm: Skin is intact, is healthy with good turgor, Skin is pink, warm \T\ dry. Musculoskeletal: No signs and/or symptoms reported regarding the musculoskeletal system. Injury Description: s/p fall. c/o groin pain, rash to left inner thigh and a lump to his suprapubic area that he noticed a couple of days ago. Historical: - Allergies: 20:06 No Known Allergies; me1 - PMHx: 20:06 Congestive heart failure; diabetes mellitus; Hypertensive disorder; Myocardial me1 infarction; stage 4 colon cancer (September 2022); - PSHx: 20:06 bowel resection; ileostomy reversal; defibrillator; me1 - Immunization history:: Adult Immunizations up to date. - Infectious Disease History:: Denies. - Social history:: Smoking status: Patient denies any tobacco usage or history of. - Family history:: not pertinent. Screenin:09 [facility] ED Fall Risk Assessment (Adult) History of falling in the last 3 months, me1 including since admission Yes- single mechanical fall (1 pt) Confusion or Disorientation No (0 pts) Intoxicated or Sedated No (0 pts) Impaired Gait No (0 pts) Mobility Assist Device Used No (0 pt) Altered Elimination No (0 pt) Score/Fall Risk Level 0 - 2 = Low Risk Maintained a safe environment, Provided non-skid footwear, Hourly rounding (assess needs \T\ fall precautionary measures) done. Abuse screen: Denies threats or abuse. Nutritional screening: No deficits noted. Tuberculosis screening: No symptoms or risk factors identified. Assessment: 20:09 General: See triage assessment. . me1 Vital Signs: 20:04 BP 112 / 96; Pulse 94; Resp 15; Temp 97.7; Pulse Ox 95% ; Weight 57.15 kg; Height 5 ft. me1 5 in. ; Pain 5/10; 21:00 BP 120 / 99; Pulse 93; Resp 16; Pulse Ox 97% ; me1 22:00 BP 118 / 95; Pulse 93; Resp 21; Pulse Ox 92% on R/A; me1 22:35 Pulse Ox 88% on R/A; me1 22:36 Pulse Ox 99% on 3 lpm NC; me1 22:43 Pain 3/10; me1 23:00 BP 109 / 90; Pulse 88; Resp 18; Pulse Ox 99% ; me1 23:45 BP 106 / 90; Pulse 86; Resp 17; Pulse Ox 97% ; me1 20:04 Body Mass Index 20.97 (57.15 kg, 165.1 cm) me1 20:04 Pain Scale: Adult me1 22:43 Pain Scale: Adult ar1 ED Course: 20:03 Patient arrived in ED. [email or web address] 20:03 Loan Ho, NEY is Primary Nurse. ar1 20:05 Caio Bello MD is Attending Physician. [facility] 20:06 Triage completed. ar1 20:06 Arm band placed on Patient placed in an exam room. ar1 20:09 Patient has correct armband on for positive identification. Bed in low position. Call [facility] light in reach. Side rails up X2. Provided Education on: POC. Verbalized understanding. . Client placed on continuous cardiac and pulse oximetry monitoring. NIBP monitoring applied. Pulse ox on. NIBP on. 20:09 No provider procedures requiring assistance completed. me1 21:38 XRAY Chest (1 view) In Process Unspecified. EDMS 21:46 US Scrotum Testicles In Process Unspecified. EDMS 21:54 Inserted saline lock: 22 gauge in left forearm, using aseptic technique. Blood af3 collected. Flushed with 10 mL NS. 21:54 Basic Metabolic Panel Sent. af3 21:54 CBC with Diff Sent. af3 21:54 LFT's Sent. af3 21:54 Magnesium Sent. af3 21:54 NT PRO-BNP Sent. af3 21:55 PT-INR Sent. af3 21:55 Troponin HS Sent. af3 22:13 EKG done, by ED staff. af3 22:14 Basic Metabolic Panel Sent. af3 22:14 CBC with Diff Sent. af3 22:14 LFT's Sent. af3 22:14 Magnesium Sent. af3 22:14 NT PRO-BNP Sent. af3 22:14 Troponin HS Sent. af3 22:20 True Mcdowell MD is Hospitalizing Provider. [facility] 07/20 01:24 Patient admitted, IV remains in place. ha1 Administered Medications: 07/19 23:04 Discontinued: ns 0.9% 1000 ml IV at 100 ml/hr continuous gustavo 21:12 CANCELLED (Duplicate Order): amoxicillin-cmqumahaegx195 mg PO once gustavo 21:12 CANCELLED (Duplicate Order): nystatin-triamcinoloneointment 1 application Topical once gustavo 21:28 CANCELLED (Duplicate Order): ns 0.9% 1000 ml IV at 125 ml/hr continuous gustavo 21:29 CANCELLED (Duplicate Order): ns 0.9% 1000 ml IV at 1 bolus Per protocol; 1000 mL bolus gustavo 21:45 CANCELLED (Duplicate Order): ns 0.9% 500 ml IV at bolus once gustavo 22:14 Drug: Ampicillin-Sulbactam Sodium IVPB 3 grams IVPB once over 30 mins; (mix in 100 mL me1 NS) Route: IVPB; Infused Over: 30 mins; Site: left forearm; 22:44 Follow up: Response: No adverse reaction; IV Status: Completed infusion me1 22:14 Drug: Fluconazole PO 200 mg PO once Route: PO; me1 22:43 Follow up: Response: No adverse reaction me1 22:14 Drug: morphine IVP or IV 2 mg IVP once over 4 mins Route: IVP; Infused Over: 4 mins; me1 Site: left forearm; 22:43 Follow up: Pain 3/10 Adult; Response: No adverse reaction; Pain is decreased me1 22:14 Drug: Ondansetron IVP 2 mg IVP once; over 2 minutes Route: IVP; Site: left forearm; me1 22:43 Follow up: Response: No adverse reaction; Nausea is decreased me1 22:14 Drug: NS 0.9% IV 1000 ml IV at 100 ml/hr continuous Route: IV; Rate: 100 ml/hr; Site: me1 left forearm; 23:09 Follow up: Response: No adverse reaction; IV Status: Completed infusion me1 22:43 Drug: nystatin Topical Cream 1 application Topical once {Note: groin/scrotum.} Route: me1 Topical; Site: affected area; 22:50 Drug: LevOfloxacin PO 500 mg PO once Route: PO; me1 23:08 Follow up: Response: No adverse reaction me1 23:14 Drug: Furosemide IVP 20 mg IVP once; give over 2 minutes Route: IVP; Site: left forearm;ar1 23:27 Follow up: Response: No adverse reaction ar1 Medication: 20:09 VIS not applicable for this client. [facility] Outcome: 22:23 Decision to Hospitalize by Provider. [facility] 07/20 01:24 Admitted to [facility] Condition: stable Instructed on the need for admit, 01:24 Patient left the ED. [facility] Signatures: Dispatcher [employer] Caio Dior MD MD cha Jeffries, Jennifer [id number] Ena Pepe, RN RN 1 Loan Ho RN RN ar1 [address]
--- NOTE | 2024-07-19 22:25 | RAD REPORT ---
Procedure: Chest Single View History: Abdominal pain Comparison: May 2024 Moderate right pleural effusion with right basilar atelectasis Mild bilateral interstitial lung opacities Heart is enlarged. Pacemaker leads in place IMPRESSION: Moderate right pleural effusion Mild bilateral interstitial pulmonary opacities may indicate mild interstitial pulmonary edema
[2024-07-19 22:30] LABS: AST/SGOT 15 U/L (15-37); Albumin 2.6 g/dL (3.4-5.0); Albumin/Globulin Ratio 0.7 (1.1-1.8); Alkaline Phosphatase 118 U/L (45-117); Anion Gap 9.8 mEq/L (5.0-15.0); BUN Blood Urea Nitrogen 31 mg/dL (7-18); Bicarbonate 22 mEq/L (21-32); Bilirubin Direct 0.6 mg/dL (0-0.2); Bilirubin Indirect, Calculated 0.8 mg/dL (0.2-0.8); Bilirubin Total 1.4 mg/dL (0.2-1.0); Globulin 3.9 g/dL (2.3-3.5); Glomerular Filtration Rate 50 ml/min (=/>90); Glucose Level 175 mg/dL (74-106); Magnesium 1.8 mg/dL (1.6-2.4); NT PRO-BNP 20371 pg/mL (<125); Potassium 3.8 mEq/L (3.5-5.1); Protein, Total 6.5 g/dL (6.4-8.2); Sodium Level 138 mEq/L (136-145); Troponin High Sensitivity 14.2 pg/mL (<58.9)
[2024-07-19 22:31] LABS: Protime INR 1.44
[2024-07-19 22:41] LABS: ALT/SGPT < 14 U/L (16-61)
[2024-07-19] MEDS ORDERED: levoFLOXacin 250 MG TAB ONE (22:48)
[2024-07-19] MEDS ORDERED: FUROSEMIDE 20 MG/ 2ML VIAL ONE (23:12)
--- NOTE | 2024-07-19 23:28 | P.HP ---
Certification for Inpatient Patient admitted to: Inpatient With expected LOS: >2 Midnights Practitioner: I am a practitioner with admitting privileges, knowledge of patient current condition, hospital course, and medical plan of care. Services: Services provided to patient in accordance with Admission requirements found in Title 42 Section 412.3 of the Code of Federal Regulations Patient History Date of Service: 07/20/24 Reason for admission: Groin Pain History of Present Illness: 53 yrs old Male past medical history of CHF, diabetes, hypertension, CAD myocardial infarction, stage IV colon cancer who was brought to ER with groin pain., Cellulitis in the pelvic region and swollen areas of the left testicle . Symptoms started 3 days ago with scrotal pain and swelling spreading onto the left inguinal region. Denies any fever or chills. No nausea vomiting or diarrhea. Pain and swelling and redness was increasing and was brought to ER. Denies any trauma. No sick contacts. Patient was assessed in the ER and is admitted for further management of the same Allergies No Known Allergies Allergy (Verified 07/20/24 02:30) Home medications list reviewed: Yes Home Medications: Aspirin [Aspirin EC 81 MG] 1 tab PO DAILY 09/28/22 Atorvastatin Calcium 20 mg PO DAILY 09/28/22 Furosemide 1 tab PO DAILY PRN 07/20/24 Metoprolol Succinate 1 tab PO DAILY 07/20/24 - Past Medical/Surgical History Diabetic: Yes Past Medical History: Reviewed- Non-Contributory -: HTN -: CHF -: [place] -: Diabetes -: Colon CA Past Surgical History: Reviewed- Non-Contributory -: cardiac stents placement in January -: Bowel Resection -: Ileostomy reversal - Family History Family History: Reviewed- Non-Contributory - Family History Father -: Hypertension, Diabetes - Social History Smoking Status: Former smoker Alcohol use: No CD- Drugs: No Caffeine use: Yes Review of Systems 10-point ROS is otherwise unremarkable Physical Examination - Vital Signs Temperature: 97.7 F Blood Pressure: 112/96 Pulse: 94 Respirations: 18 Pulse Ox (%): 98 - Physical Exam General: Alert, In no apparent distress, Obese HEENT: Atraumatic, Normocephalic Neck: Supple Respiratory: Clear to auscultation bilaterally, Normal air movement Cardiovascular: Regular rate/rhythm, Normal S1 S2 Capillary refill: <2 Seconds Gastrointestinal: Soft and benign, W/out hepatosplenomegaly Musculoskeletal: No clubbing, Erythema, Tenderness, Warmth Integumentary: Tenderness/swelling, Erythema, Warmth Neurological: Normal speech, Normal strength at 5/5 x4 extr, Cranial nerves 3-12 intact Lymphatics: No axilla or inguinal lymphadenopathy External genitalia: Edema, Tenderness - Studies Laboratory Data (last 24 hrs) 07/19/24 07/19/24 07/19/24 21:52 21:52 21:52 WBC 6.40 Hgb 14.5 Hct 45.1 Plt Count 130 L PT 16.0 H INR 1.44 Sodium 138 Potassium 3.8 BUN 31 H Creatinine 1.62 H Glucose 175 H Magnesium 1.8 Total Bilirubin 1.4 H AST 15 ALT < 14 L Alkaline Phosphatase 118 H Assessment and Plan - Plan Pelvic cellulitis Scrotal ultrasound noted Started on pain medication IV antibiotic Monitor closely Left epididymitis Continue antibiotic and pain control May need urology consult in a.m. Hypertension Antihypertensives titrated Continue home medications and titrate as needed Hyperlipidemia Continue statin CAD Status post PCI Monitor closely on telemetry Diabetes Insulin sliding scale Accu-Chek before every meal and at bedtime GI/DVT prophylaxis Advanced directive full code Discharge Plan: Home Plan to discharge in: 48 Hours - Advance Directives Does patient have a Living Will: No Does patient have a Durable POA for Healthcare: No - Code Status/Comfort Care Code Status: Full Code Time Spent Managing Pts Care (In Minutes): 48
[2024-07-19] MEDS ORDERED: MORPHINE 2 MG/ML SYR IV PRN (23:32)
[2024-07-20] MEDS: NA CHLORIDE 0.9% 1,000 ML IV SCH (01:50)
[2024-07-20] MEDS: VANCOMYCIN 1 GM in NA CHLORIDE 0.9% 250 ML IVPB SCH (01:50)
[2024-07-20 07:06] LABS: Absolute Basophils 0.1 K/uL (0-0.5); Absolute Eosinophils 0.2 K/uL (0-0.5); Absolute Lymphocytes (CBC) 1.7 K/uL (0.7-4.9); Absolute Monocytes 0.9 K/uL (0.1-1.3); Absolute Neutrophil 4.7 K/uL (1.8-8.0); Eosinophils % 2.5 % (0-4.4); Hematocrit 41.9 % (39.6-49.0); Hemoglobin 13.5 g/dL (13.6-17.9); Lymphocytes % 22.5 % (15.3-44.8); MCH 28.1 pg (27.0-35.0); MCHC 32.3 g/dL (32.0-36.0); MCV 87.1 fL (80-100); MPV 9.8 fL (7.6-11.3); Monocytes % 11.7 % (3.3-12.3); Neutrophils % 62.3 % (41.7-73.7); Nucleated Red Blood Cells % 0.2 % (0-0); Platelets 130 thou/uL (152-406); RBC Red Blood Cell Count 4.82 M/uL (4.33-5.43); Red Cell Distribution Width 18.1 % (12.1-15.2)
[2024-07-20 07:27] LABS: AST/SGOT 12 U/L (15-37); Albumin 2.4 g/dL (3.4-5.0); Albumin/Globulin Ratio 0.7 (1.1-1.8); Alkaline Phosphatase 108 U/L (45-117); Anion Gap 8.9 mEq/L (5.0-15.0); BUN Blood Urea Nitrogen 33 mg/dL (7-18); Bicarbonate 22 mEq/L (21-32); Bilirubin Total 1.2 mg/dL (0.2-1.0); Globulin 3.6 g/dL (2.3-3.5); Glomerular Filtration Rate 51 ml/min (=/>90); Glucose Level 115 mg/dL (74-106); Potassium 3.9 mEq/L (3.5-5.1); Sodium Level 139 mEq/L (136-145)
[2024-07-20 07:28] LABS: ALT/SGPT < 14 U/L (16-61)
[2024-07-20 08:01] LABS: Specific Gravity 1.015 (1.005-1.030); Sqamous Epithelial <5 /HPF (None Seen); Transitional Epithelial <5 /HPF (None Seen); Urine Bacteria 20-50 /HPF (<20); Urine Bilirubin NEGATIVE (Negative); Urine Blood 2+ (Negative); Urine Clarity Extremely Turbid (Clear); Urine Color Yellow (Yellow); Urine Culture Reflex Order REFLEXED; Urine Glucose NEGATIVE (Negative); Urine Ketones NEGATIVE (Negative); Urine Microscopic Reflex YN ORDER UMIC; Urine Mucus Slight /HPF (None Seen); Urine Nitrite NEGATIVE (Negative); Urine Protein 2+ (Negative); Urine Urobilinogen Normal (Normal); Urine WBC 20-50 /HPF (<5); Urine WBC Clump Rare /HPF (None Seen); Urine Yeast (Budding) Occasional /HPF (None Seen); Urine pH 5.5 (5.0-7.0)
[2024-07-20] MEDS: CEFEPIME 1 GM in NA CHLORIDE 0.9% 100 ML IV SCH (08:14)
[2024-07-20] MEDS: ENOXAPARIN 40 MG/0.4 ML SQ SCH (08:14)
[2024-07-20] MEDS: PNEUMOCOCCAL VACCINE 0.5 ML IMVAC ONE (10:00)
--- NOTE | 2024-07-20 15:21 | P.PN ---
Subjective Date of Service: 07/20/24 Chief Complaint: Groin Pain Patient reports itching in his perineal area. UA suggest the presence of UTI. He says at baseline he ambulates with a walker or cane. He denies any fever. Physical Examination - Vital Signs Temperature: 97.7 F Blood Pressure: 100/73 Pulse: 84 Respirations: 14 Pulse Ox (%): 90 - Studies Laboratory Data (last 24 hrs) 07/19/24 07/19/24 07/19/24 21:52 21:52 21:52 WBC 6.40 Hgb 14.5 Hct 45.1 Plt Count 130 L PT 16.0 H INR 1.44 Sodium 138 Potassium 3.8 BUN 31 H Creatinine 1.62 H Glucose 175 H Magnesium 1.8 Total Bilirubin 1.4 H AST 15 ALT < 14 L Alkaline Phosphatase 118 H Assessment And Plan - Plan Physical examination General: Alert and oriented x3, NAD, HEENT: Conjunctiva not pale, anicteric sclera Neck: Supple, no elevated JVD Heart: Heart sounds 1 and 2 normal, regular rhythm, normal rate, no pedal edema Lungs: Clear to auscultation bilaterally, adequate breath sounds bilaterally, no rhonchi or crackles. Abdomen: Soft, nondistended, nontender, normal bowel sounds. Genitourinary: Scrotal edema and erythema, mild penile edema. Extremities: No tenderness, no deformity Skin: Normal skin turgor, erythema-perineal area and involving the scrotum. Neuro: No focal motor deficit. Normal speech. Psychiatry: Normal mood, no agitation. Assessment and plan Pelvic cellulitis Dermatomycosis Scrotal ultrasound noted Continue current IV antibiotics And oral Diflucan Miconazole cream. Follow cultures. Left epididymitis Scrotal edema Suspected mild epididymitis Continue antibiotic. Analgesics as needed Trial of IV Lasix. CAD Acute on chronic systolic heart failure Status post PCI Resume home dose aspirin and Lipitor IV Lasix. Diabetes Insulin sliding scale Accu-Chek before every meal and at bedtime GI/DVT prophylaxis Advanced directive full code
[2024-07-20] MEDS ORDERED: D10W 125 ML IV PRN (15:53)
[2024-07-20] MEDS ORDERED: GLUCAGON 1 MG/VIAL IM PRN (15:53)
[2024-07-20] MEDS: INSULIN REGULAR (HUMAN) 100 UNIT/ML SQ SCH (16:21)
[2024-07-20] MEDS: HEPARIN 5000 UNIT/ML 1 ML VIAL SQ SCH (16:27)
[2024-07-20] MEDS: MICONAZOLE 2% TOPICAL 15 GM TOP SCH (19:27)
[2024-07-21] MEDS: ONDANSETRON 4 MG/2 ML VIAL IV PRN (00:51)
[2024-07-21] MEDS: ASPIRIN EC 81 MG TAB PO SCH (08:21)
[2024-07-21] MEDS: FLUCONAZOLE 100 MG TAB PO SCH (08:21)
[2024-07-21] MEDS: ATORVASTATIN 20 MG TAB PO SCH (08:21)
[2024-07-21] MEDS: CEFEPIME 1 GM in NA CHLORIDE 0.9% 100 ML IV SCH (08:53)
[2024-07-21] MEDS: INSULIN REGULAR (HUMAN) 100 UNIT/ML SQ SCH (09:00)
--- NOTE | 2024-07-21 12:35 | EKG ---
Test Date: 2024-07-19 Test Time: 22:06:51 [employer] Installer: AF MEASUREMENT RESULTS: Intervals: Rate: 92 LA: 174 QRSD: 140 QT: 400 QTc: 494 [place]: P: 17 LA: 174 QRS: 190 T: 19 INTERPRETIVE STATEMENTS: Normal sinus rhythm Right bundle branch block Abnormal ECG Compared to ECG 07/15/2024 18:19:35 Myocardial infarct finding no longer present Electronically Signed On 07-21-24 12:34:21 CDT by Jayson Johnson
--- NOTE | 2024-07-21 13:49 | P.PN ---
Subjective Date of Service: 07/21/24 Chief Complaint: Groin Pain Patient reports a history of scrotal swelling as significantly improved. Review of old medical records suggest patient has a history of systolic heart failure Urine culture is growing gram-negative rods. Physical Examination - Vital Signs Temperature: 97.6 F Blood Pressure: 112/91 Pulse: 85 Respirations: 12 Pulse Ox (%): 94 Assessment And Plan - Plan Physical examination General: Alert and oriented x3, NAD, HEENT: Anicteric sclera Neck: Supple, no elevated JVD Heart: Heart sounds 1 and 2 normal, regular rhythm, normal rate, no pedal edema Lungs: Clear to auscultation bilaterally, adequate breath sounds bilaterally, no rhonchi or crackles. Abdomen: Soft, nondistended, nontender, normal bowel sounds. Genitourinary: Scrotal edema and erythema significantly improved, mild penile edema. Extremities: No tenderness, no deformity Skin: Normal skin turgor, erythema-perineal area and involving the scrotum. Neuro: No focal motor deficit. Normal speech. Psychiatry: Normal mood, no agitation. Assessment and plan Pelvic cellulitis Dermatomycosis Scrotal ultrasound noted Continue current IV antibiotics Continue oral Diflucan and miconazole cream UTI Urine cultures growing gram-negative rods. Continue current antibiotics. Follow urine culture. Left epididymitis Scrotal edema Suspected mild epididymitis Continue antibiotic. Analgesics as needed CAD Acute on chronic systolic heart failure Status post PCI Resume home dose aspirin and Lipitor IV Lasix. Increase activity as tolerated. PT consult. Diabetes Insulin sliding scale Accu-Chek before every meal and at bedtime GI/DVT prophylaxis Advanced directive full code
[2024-07-21] MEDS: FUROSEMIDE 40 MG/4 ML VIAL IV SCH (16:52)
[2024-07-22] MEDS: VANCOMYCIN 1 GM in NA CHLORIDE 0.9% 250 ML IVPB SCH (01:58)
[2024-07-22 06:53] LABS: Absolute Basophils 0.1 K/uL (0-0.5); Absolute Eosinophils 0.2 K/uL (0-0.5); Absolute Lymphocytes (CBC) 1.3 K/uL (0.7-4.9); Absolute Monocytes 0.5 K/uL (0.1-1.3); Absolute Neutrophil 4.4 K/uL (1.8-8.0); Basophils % 1.4 % (0-1.3); Eosinophils % 2.9 % (0-4.4); Hematocrit 43.5 % (39.6-49.0); Hemoglobin 13.8 g/dL (13.6-17.9); Lymphocytes % 20.3 % (15.3-44.8); MCH 27.7 pg (27.0-35.0); MCHC 31.7 g/dL (32.0-36.0); MCV 87.3 fL (80-100); MPV 11.4 fL (7.6-11.3); Monocytes % 8.3 % (3.3-12.3); Neutrophils % 67.1 % (41.7-73.7); Nucleated Red Blood Cells % 0.2 % (0-0); Platelets 114 thou/uL (152-406); RBC Red Blood Cell Count 4.99 M/uL (4.33-5.43); Red Cell Distribution Width 18.2 % (12.1-15.2)
--- NOTE | 2024-07-22 07:13 | P.PN ---
Date of Service: 07/22/24 Subjective: scrotal pain improving. Mostly resolved. currently with minimal pain appetite slowly improving denies trouble urinating 3-4 loose BM yesterday varying in volume feels weak, but slightly improved, worried how steady he will be on his feet ROS: 10 point ROS as noted above, otherwise negative Physical Exam: GEN: Alert, oriented, NAD CV: Regular rate and rhythm, trace bilateral lower extremity edema Pulm: Non-labored respirations on room air, clear bilaterally ABD: Soft, nontender, nondistended Integumentary: mild scrotal swelling with erythema; improving. Neuro: Normal speech, normal affect vitals reviewed Problem List: Pelvic/Scrotal cellulitis Dermatomycosis Left epididymitis UTI Acute on chronic systolic CHF TANG NIDDM2 Hx CAD s/p PCI Hx Colon cancer, Stage IV Pelvic/Scrotal cellulitis Dermatomycosis Left epididymitis on admission, presents with worsening groin pain, left testicular swelling for ~3 days. No n/v/d. No fever/chills. scrotal u/s (07/19): Mild left epididymitis. continue empiric cefepime / vanc (07/20-) continue miconazole topical (07/20-) continue diflucan (07/21-) pain control UTI Urine cx (07/20): Klebsiella Pneumoniae afebrile, no leukocytosis continue empiric cefepime / vanc for now (07/20-) Acute on chronic systolic CHF Hx CAD s/p PCI CXR (07/19): moderate right pleural effusion with right basilar atelectasis. Mild bilateral interstitial pulmonary opacities likely pulm edema. continue IV lasix resume home aspirin, statin PT consult TANG creatinine 1.60 -> 1.85 (07/22) continue to monitor renal function on 40mg IV lasix NIDDM2 accu-cheks, SSI Hx Colon cancer, Stage IV continue supportive care VTE: heparin sq Code: Full Dispo: Home, ~1-2 days Time Spent Managing Pts Care (In Minutes): 41
[2024-07-22 07:40] LABS: Anion Gap 9.2 mEq/L (5.0-15.0); Potassium 4.2 mEq/L (3.5-5.1)
[2024-07-22] MEDS: METOPROLOL XL 25 MG TAB PO SCH (09:06)
[2024-07-23 05:59] LABS: Absolute Basophils 0.1 K/uL (0-0.5); Absolute Eosinophils 0.2 K/uL (0-0.5); Absolute Lymphocytes (CBC) 1.7 K/uL (0.7-4.9); Absolute Monocytes 0.6 K/uL (0.1-1.3); Absolute Neutrophil 3.9 K/uL (1.8-8.0); Basophils % 1.1 % (0-1.3); Eosinophils % 3.5 % (0-4.4); Hematocrit 45.4 % (39.6-49.0); Hemoglobin 14.6 g/dL (13.6-17.9); Lymphocytes % 25.5 % (15.3-44.8); MCH 27.9 pg (27.0-35.0); MCHC 32.2 g/dL (32.0-36.0); MCV 86.7 fL (80-100); MPV 10.4 fL (7.6-11.3); Monocytes % 9.6 % (3.3-12.3); Neutrophils % 60.3 % (41.7-73.7); Nucleated Red Blood Cells % 0.2 % (0-0); Platelets 146 thou/uL (152-406); RBC Red Blood Cell Count 5.24 M/uL (4.33-5.43); Red Cell Distribution Width 17.9 % (12.1-15.2)
[2024-07-23 06:16] LABS: Anion Gap 12.1 mEq/L (5.0-15.0); Magnesium 1.9 mg/dL (1.6-2.4); Potassium 4.1 mEq/L (3.5-5.1)
[2024-07-23] MEDS: FUROSEMIDE 40 MG TABLET PO SCH (08:17)
[2024-07-23] MEDS: VANCOMYCIN 0.75 GM in NA CHLORIDE 0.9% 150 ML IVPB SCH (09:02)
--- NOTE | 2024-07-23 09:08 | P.CNS ---
Date of Consult: 07/23/24 Reason for Consult: TANG/ CKD Requesting Physician: David Luna Chief Complaint: Groin Pain History of Present Illness: 53 yrs old Male past medical history of CHF, diabetes, hypertension, CAD myocardial infarction, stage IV colon cancer who was brought to ER with groin pain., Cellulitis in the pelvic region and swollen areas of the left testicle . Symptoms started 3 days ago with scrotal pain and swelling spreading onto the left inguinal region. Denies any fever or chills. No nausea vomiting or diarrhea. Pain and swelling and redness was increasing and was brought to ER. Denies any trauma. No sick contacts. 21:20 This 53 yrs old Male presents to ER via EMS with complaints of Groin Pain. gustavo 21:20 The patient presents with cellulitis of the pelvis, the patient presents with a swollen gustavo area of the left testicle. Description: erythematous, swollen. Onset: The symptoms/episode began/occurred 3 day(s) ago. Possible cause(s): unknown. The patient presents with scrotal pain, swelling, that is moderate, of the left inguinal area. Modifying factors: The symptoms are alleviated by remaining still, the symptoms are aggravated by movement, pressure. Associated signs and symptoms: The patient has no apparent associated signs or symptoms. Severity of symptoms: At their worst the symptoms were moderate, in the emergency department the symptoms are unchanged. No difficulty with urination. He reports daily Advil/ Aleve for a couple of weeks prior to admission for right hip and knee pain sp fall. Allergies No Known Allergies Allergy (Verified 07/20/24 02:30) Home medications list reviewed: Yes Home Medications: Aspirin [Aspirin EC 81 MG] 1 tab PO DAILY 09/28/22 Atorvastatin Calcium 20 mg PO DAILY 09/28/22 Furosemide 1 tab PO DAILY PRN 07/20/24 Metoprolol Succinate 1 tab PO DAILY 07/20/24 - Past Medical/Surgical History Diabetic: Yes -: HTN -: Systolic Diastolic CHF LVEF 10% -: Moderate Pulmonary HTN -: DM II -: CKD III with Proteinuria (Dr. Leary/ [place]) -: CAD/ [place] -: Colon Cancer Stage II -: cardiac stents placement in January -: Bowel Resection -: Ileostomy reversal - Family History Father Medical History: Hypertension, Diabetes - Social History Alcohol use: No CD- Drugs: No Caffeine use: Yes Place of Residence: Home Review of Systems 10-point ROS is otherwise unremarkable General: Weakness, Malaise Cardiovascular: Edema Integumentary: Rash Physical Examination Temp Pulse Resp BP Pulse Ox 97.9 F 72 16 109/85 96 07/23/24 08:00 07/23/24 08:17 07/23/24 08:00 07/23/24 08:17 07/23/24 08:00 General: Oriented x3, Cooperative HEENT: Atraumatic Neck: Supple Respiratory: Normal air movement Cardiovascular: Regular rate/rhythm, Edema Gastrointestinal: Non-distended, Tenderness Musculoskeletal: No clubbing, No contractures Integumentary: No rashes, No cyanosis Neurological: Normal speech Blood work reviewed in the chart. Imagings Data: Exam Date: 07/19/24 Reason for Exam: ABDOMINAL DISTENTION Report Status: Signed Procedure: Chest Single View History: Abdominal pain Comparison: May 2024 Moderate right pleural effusion with right basilar atelectasis Mild bilateral interstitial lung opacities Heart is enlarged. Pacemaker leads in place IMPRESSION: Moderate right pleural effusion Mild bilateral interstitial pulmonary opacities may indicate mild interstitial pulmonary edema Exam Date: 07/19/24 Reason for Exam: PAIN Report Status: Signed EXAMINATION: ULTRASOUND DUPLEX OF SCROTUM AND TESTICLES CLINICAL INDICATION: Testicular pain TECHNIQUE: Duplex scan of the scrotal contents was performed including real-time color and spectral Doppler ultrasonography with arterial inflow and venous outflow. COMPARISON: No prior exam. FINDINGS: Right testicle measures 4.4 x 2.8 x 3.2 cm. Mildly inhomogeneous echotexture. Right epididymis not visualized. Left testicle measures 4 x 2.3 x 3.2 cm. Mildly homogeneous echotexture. Mildly increased flow left epididymis. Each testicle appears to demonstrate diminished blood flow. IMPRESSION: Mild left epididymitis Each testicle appears to demonstrate diminished blood flow. I suspect this is due to technical factors rather than pathology. A bilateral testicular torsion is doubtful. If the patient has clinical symptoms to suggest this then a follow-up testicular ultrasound would be recommended for reevaluation Conclusions/Impression: Stage I TANG in the setting of relative hypotension, diuresis and NSAIDs prior to admission CKD III with Proteinuria -No NSAIDs NAG Metabolic Acidosis -Start oral bicarb Relative Hypotension -Consider Midodrine -Nurse to check orthostatic BPs Systolic Diastolic CHF, A/C Global Hypokinesis LVEF 10% Moderate Pulmonary HTN -Continue Metoprolol -Continue Lasix -Check echocardiogram DM II with CKD -RISS Hypoalbuminemia -Protein supplementation as tolerated Acute Cystitis with Hematuria -Continue Abx Pelvic/ Scrotal Cellulitis -Continue Abx Case reviewed with Dr. Luna Hospitalist and ER notes reviewed Thank you kindly for the consultation
[2024-07-23 09:39] LABS: Uric Acid 6.9 mg/dL (3.5-7.2)
[2024-07-23] MEDS: SODIUM BICARB 325 MG TAB PO SCH (10:50)
--- NOTE | 2024-07-23 11:17 | P.PN ---
Date of Service: 07/23/24 Subjective: feels more run down today / tired/ dizzy / nauseated blood pressure is lower still with some loose stool, but not worse, does feel low volume ROS: 10 point ROS as noted above, otherwise negative Physical Exam: GEN: Alert, oriented, fatigued appearing CV: Regular rate and rhythm, 2+ bilateral lower extremity edema Pulm: Non-labored respirations on room air, clear bilaterally ABD: Soft, nontender, nondistended Integumentary: mild scrotal swelling with erythema; improving. Neuro: Normal speech, normal affect vitals reviewed Problem List: Pelvic/Scrotal cellulitis Dermatomycosis Left epididymitis UTI TANG on CKD3 Metabolic acidosis Acute on chronic systolic CHF NIDDM2 Hx CAD s/p PCI Hx Colon cancer, Stage II Pelvic/Scrotal cellulitis Dermatomycosis Left epididymitis on admission, presents with worsening groin pain, left testicular swelling for ~3 days. No n/v/d. No fever/chills. scrotal u/s (07/19): Mild left epididymitis. empiric cefepime / vanc (07/20-07/23) switch to Augmentin 07/23- continue miconazole topical (07/20-) continue diflucan (07/21-) - complete 5 days total pain control UTI Urine cx (07/20): Klebsiella Pneumoniae afebrile, no leukocytosis switch to Augmentin 07/23 TANG on CKD3 Metabolic acidosis creatinine 1.85 -> 2.0 (07/23) suspect from hypovolemia vs CRS still with quite a bit of pitting edema in lower extremities, difficult to diurese with BP low add 25/500ml Albumin 07/23 continue to monitor renal function IV lasix deescalated to PO 40 mg BID oral bicarb added 07/23 Acute on chronic systolic CHF Hx CAD s/p PCI CXR (07/19): moderate right pleural effusion with right basilar atelectasis. Mild bilateral interstitial pulmonary opacities likely pulm edema. echo ordered to eval EF / stenosis IV lasix deescalated to PO 40 mg BID resume home aspirin, statin PT consult NIDDM2 accu-cheks, SSI Hx Colon cancer, Stage II continue supportive care VTE: heparin sq Code: Full Dispo: Home, ~ 2 days Time Spent Managing Pts Care (In Minutes): 51
[2024-07-23] MEDS: ALBUMIN HUM 5% 500 ML IV SCH (12:21)
--- NOTE | 2024-07-23 13:37 | ECHO ---
HEIGHT: 5 ft 5 in WEIGHT: 131 lb 0 oz DATE OF STUDY: 07/23/[address]: Charanjit Leary DO 2-DIMENSIONAL: YES M.MODE: YES DOPPLER: YES COLOR FLOW: YES TDS: PORTABLE: YES DEFINITY: BUBBLE STUDY: DIAGNOSIS: SYSTOLIC CONGESTIVE HEART FAILURE CARDIAC HISTORY: CATHERIZATION: YES SURGERY: NO PROSTHETIC VALVE: NO PACEMAKER: YES MEASUREMENTS (cm) DIASTOLIC (NORMALS) SYSTOLIC (NORMALS) IVSd 0.8 (0.6-1.2) LA Diam 3.1 (1.9-4.0) LVEF 10% LVIDd 5.6 (3.5-5.7) LVIDs 5.2 (2.0-3.5) %FS LVPWd 0.9 (0.6-1.2) Ao Diam 2.6 (2.0-3.7) 2 DIMENSIONAL ASSESSMENT: RIGHT ATRIUM: NORMAL LEFT ATRIUM: NORMAL RIGHT VENTRICLE: NORMAL LEFT VENTRICLE: MODERATELY DILATED TRICUSPID VALVE: MILD TRICUSPID REGURGITATION MITRAL VALVE: SEVERE MITRAL ANNULAR CALCIFICATION PULMONIC VALVE: NORMAL AORTIC VALVE: NORMAL PERICARDIAL EFFUSION: NONE AORTIC ROOT: NORMAL LEFT VENTRICULAR WALL MOTION: SEVERE GLOBAL HYPOKINESIS DOPPLER/COLOR FLOW: DIASTOLIC DYSFUNCTION COMMENTS: 1. SEVERELY REDUCED LEFT VENTRICULAR SYSTOLIC FUNCTION, EJECTION FRACTION 10%, SEVERE GLOBAL HYPOKINESIS 2. CAN NOT RULE OUT LEFT VENTRICULAR THROMBUS 3. DIASTOLIC DYSFUNCTION 4. ELEVATED FILLING PRESSURE (RIGHT ATRIUM GREATER THAN 20 mmHg) 5. MODERATE PULMONARY HYPERTENSION (RIGHT VENTRICULAR SYSTOLIC PRESSURE 50-55 mmHg) TECHNOLOGIST: JJ CANO
[2024-07-23] MEDS: AMOX/K CLAV 500 MG TAB PO SCH (20:43)
[2024-07-24 07:40] LABS: Absolute Basophils 0.1 K/uL (0-0.5); Absolute Eosinophils 0.2 K/uL (0-0.5); Absolute Lymphocytes (CBC) 2.4 K/uL (0.7-4.9); Absolute Monocytes 1.1 K/uL (0.1-1.3); Absolute Neutrophil 4.6 K/uL (1.8-8.0); Eosinophils % 2.1 % (0-4.4); Hematocrit 47.2 % (39.6-49.0); Hemoglobin 14.8 g/dL (13.6-17.9); Lymphocytes % 29.2 % (15.3-44.8); MCH 27.6 pg (27.0-35.0); MCHC 31.4 g/dL (32.0-36.0); MPV 10.9 fL (7.6-11.3); Monocytes % 12.9 % (3.3-12.3); Neutrophils % 54.8 % (41.7-73.7); Nucleated Red Blood Cells % 0.4 % (0-0); Platelets 131 thou/uL (152-406); RBC Red Blood Cell Count 5.37 M/uL (4.33-5.43); Red Cell Distribution Width 18.4 % (12.1-15.2)
[2024-07-24 07:51] LABS: Albumin 2.4 g/dL (3.4-5.0); Albumin/Globulin Ratio 0.6 (1.1-1.8); Anion Gap 15.3 mEq/L (5.0-15.0); Bilirubin Total 0.8 mg/dL (0.2-1.0); Globulin 3.7 g/dL (2.3-3.5); Magnesium 1.9 mg/dL (1.6-2.4); Potassium 4.3 mEq/L (3.5-5.1); Protein, Total 6.1 g/dL (6.4-8.2); Uric Acid 6.8 mg/dL (3.5-7.2)
--- NOTE | 2024-07-24 07:51 | P.PN ---
Date of Service: 07/24/24 Subjective: feeling slightly better today had short episode of chest pain overnight and placed on oxygen supplementation - desat ~87% on RA at the time now tolerating room air. Breathing not as labored lower extremity edema improving slowly afebrile ROS: 10 point ROS as noted above, otherwise negative Physical Exam: GEN: Alert, oriented, fatigued appearing CV: Regular rate and rhythm, 2+ bilateral lower extremity edema Pulm: Non-labored respirations on room air, clear bilaterally ABD: Soft, nontender, nondistended Integumentary: mild scrotal swelling with erythema; improving. Neuro: Normal speech, normal affect vitals reviewed Problem List: Pelvic/Scrotal cellulitis Dermatomycosis Left epididymitis UTI Acute on chronic combined systolic & diastolic CHF (HFrEF - 10%) TANG on CKD3 Metabolic acidosis NIDDM2 Hx CAD s/p PCI Hx colon/cecal cancer, Stage II; s/p ex-lap, right hemicolectomy, ileo-colic anastomosis, diverting loop ileostomy on 03/28/23 with subsequent ileostomy closure 04/25/24 (Final path: T3 N0, with no indications for adjuvant therapy) Pelvic/Scrotal cellulitis Dermatomycosis Left epididymitis on admission, presents with worsening groin pain, left testicular swelling for ~3 days. No n/v/d. No fever/chills. scrotal u/s (07/19): Mild left epididymitis. previously on empiric cefepime / vanc (07/20-07/23) abx deescalated to Augmentin (07/23-) continue miconazole topical (07/20-) continue diflucan (07/21-07/25) - day 4 of 5 pain control UTI Urine cx (07/20): Klebsiella Pneumoniae afebrile, no leukocytosis previously on empiric cefepime / vanc (07/20-07/23) abx deescalated to Augmentin (07/23-) Acute on chronic combined systolic & diastolic CHF (HFrEF - 10%) Hx CAD s/p PCI CXR (07/19): moderate right pleural effusion with right basilar atelectasis. Mild bilateral interstitial pulmonary opacities likely pulm edema. echo (07/23): 10% EF with severe global hypokinesis, diastolic dysfunction, elevated filling pressure, moderate pulmonary hypertension previous echo (04/16/24): 20-24% EF, global hypokinesis, grade 2 diastolic dysfunction, RV systolic function severely depressed. moderate MR/TR follows Dr. 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 repeat CXR (07/24): stable mod-large right pleural effusion. +central interstitial prominence suggesting edema. Cardiology and nephrology consulted oral lasix switched to IV lasix 20 mg q6h per nephro (07/24) midodrine added 07/24 resume home aspirin, statin check orthostatic vitals, daily weight, UOP TANG on CKD3 Metabolic acidosis creatinine 2.0 -> 2.07 (07/24) suspect from hypovolemia vs CRS still with quite a bit of pitting edema in lower extremities, difficult to diurese with BP low continue to monitor renal function oral lasix switched to IV lasix 20 mg BID per nephro continue oral bicarb; added 07/23 s/p Albumin 07/23 NIDDM2 accu-cheks, SSI Hx colon/cecal cancer, Stage II; s/p ex-lap, right hemicolectomy, ileo-colic anastomosis, diverting loop ileostomy on 03/28/23 with subsequent ileostomy closure 04/25/24 (Final path: T3 N0, with no indications for adjuvant therapy) continue supportive care VTE: heparin sq Code: Full Dispo: Home, ~2 days Pending cardiac recs, diuresis Time Spent Managing Pts Care (In Minutes): 51
--- NOTE | 2024-07-24 10:18 | P.PN ---
Date of Service: 07/24/24 Vital Signs Temp Pulse Resp BP Pulse Ox 97.3 F 75 16 106/73 98 07/24/24 08:00 07/24/24 08:51 07/24/24 08:00 07/24/24 08:51 07/24/24 08:00 Medications Acetaminophen (Acetaminophen 325 Mg Tablet) 650 mg PO Q4HP PRN PRN Reason: Pain scale 2-4 (Mild) Hydrocodone Bitart/Acetaminophen (Hydrocodone/Apap 5/325 Mg Tab) 1 tab PO Q4H PRN PRN Reason: Pain scale 5-7 (Moderate) Amoxicillin/Clavulanate Potassium (Amox/K Clav 500 Mg Tab) 500 mg PO BID [facility] Stop: 08/02/24 09:01 Last Admin: 07/24/24 08:50 Dose: 500 mg Aspirin (Aspirin Ec 81 Mg Tab) 81 mg PO DAILY [facility] Last Admin: 07/24/24 08:50 Dose: 81 mg Atorvastatin Calcium (Atorvastatin 20 Mg Tab) 20 mg PO DAILY [facility] Last Admin: 07/24/24 08:51 Dose: 20 mg Furosemide (Furosemide 40 Mg Tablet) 40 mg PO BIDL [facility] Last Admin: 07/24/24 08:51 Dose: 40 mg Glucagon (Glucagon 1 Mg/Vial) 1 mg IM 1X PRN PRN Reason: HYPOGLYCEMIA Heparin Sodium (Porcine) (Heparin 5000 Unit/Ml 1 Ml Vial) 5,000 unit SQ Q8HR [facility] Last Admin: 07/24/24 08:49 Dose: 5,000 unit Dextrose (Dextrose 10% Water Iv Soln.) 125 mls @ 0 mls/hr IV PRN PRN; Protocol PRN Reason: HYPOGLYCEMIA Insulin Human Regular (Insulin Regular (Human) 100 Unit/Ml) 0 unit SQ ACHS [facility]; Protocol Last Admin: 07/24/24 07:30 Dose: Not Given Metoprolol Succinate (Metoprolol Xl 25 Mg Tab) 25 mg PO DAILY [facility] Last Admin: 07/24/24 08:51 Dose: 25 mg Miconazole Nitrate (Miconazole 2% Topical 15 Gm) 1 appl TOP BID [facility] Last Admin: 07/24/24 08:52 Dose: 1 appl Morphine Sulfate (Morphine 2 Mg/Ml Syr) 2 mg IV Q4H PRN PRN Reason: Pain scale 8-10 (Severe) Ondansetron HCl (Ondansetron 4 Mg/2 Ml Vial) 4 mg IV Q6HP PRN PRN Reason: NAUSEA / VOMITING Last Admin: 07/23/24 20:43 Dose: 4 mg Sodium Bicarbonate (Sodium Bicarb 325 Mg Tab) 325 mg PO QID [facility] Last Admin: 07/24/24 08:50 Dose: 325 mg Assessment/ Plan: Nephrology Progress Note No Dyspnea. +CHAVARRIA No Chest Pain Diarrhea No Acute Events Overnight Vital Signs, Medications, Blood Work, and Imaging reviewed in the chart General: Oriented x3, Cooperative HEENT: Atraumatic Neck: Supple Respiratory: Normal air movement Cardiovascular: Regular rate/rhythm, Edema Gastrointestinal: Non-distended, Tenderness Musculoskeletal: No clubbing, No contractures Integumentary: No rashes, No cyanosis Neurological: Normal speech Blood work reviewed in the chart. Imagings Data: Exam Date: 07/19/24 Reason for Exam: ABDOMINAL DISTENTION Report Status: Signed Procedure: Chest Single View History: Abdominal pain Comparison: May 2024 Moderate right pleural effusion with right basilar atelectasis Mild bilateral interstitial lung opacities Heart is enlarged. Pacemaker leads in place IMPRESSION: Moderate right pleural effusion Mild bilateral interstitial pulmonary opacities may indicate mild interstitial pulmonary edema Exam Date: 07/19/24 Reason for Exam: PAIN Report Status: Signed EXAMINATION: ULTRASOUND DUPLEX OF SCROTUM AND TESTICLES CLINICAL INDICATION: Testicular pain TECHNIQUE: Duplex scan of the scrotal contents was performed including real-time color and spectral Doppler ultrasonography with arterial inflow and venous outflow. COMPARISON: No prior exam. FINDINGS: Right testicle measures 4.4 x 2.8 x 3.2 cm. Mildly inhomogeneous echotexture. Right epididymis not visualized. Left testicle measures 4 x 2.3 x 3.2 cm. Mildly homogeneous echotexture. Mildly increased flow left epididymis. Each testicle appears to demonstrate diminished blood flow. IMPRESSION: Mild left epididymitis Each testicle appears to demonstrate diminished blood flow. I suspect this is due to technical factors rather than pathology. A bilateral testicular torsion is doubtful. If the patient has clinical symptoms to suggest this then a follow-up testicular ultrasound would be recommended for reevaluation Conclusions/Impression: Stage I TANG in the setting of relative hypotension, diuresis and NSAIDs prior to admission CKD III with Proteinuria -No NSAIDs NAG Metabolic Acidosis -Continue oral bicarb Orthostatic Hypotension -Will start Midodrine -Cardiology to evaluate Systolic Diastolic CHF, A/C Ischemic CMP with Global Hypokinesis LVEF 10% followed by Dr. Interiano at [facility] Moderate Pulmonary HTN -Continue Metoprolol -Change Lasix IV q6h -Echocardiogram reviewed DM II with CKD -RISS Hypoalbuminemia -Protein supplementation as tolerated Acute Cystitis with Hematuria -Continue Abx Pelvic/ Scrotal Cellulitis -Continue Abx Case reviewed with Dr. Luna Hospitalist note reviewed
[2024-07-24] MEDS: MIDODRINE HCL 5 MG TABLET PO SCH (10:51)
[2024-07-24] MEDS: FUROSEMIDE 20 MG/ 2ML VIAL IV SCH (10:51)
--- NOTE | 2024-07-24 10:53 | RAD REPORT ---
EXAMINATION: ONE VIEW CHEST XR CLINICAL INDICATION: Male, 53 years old.,chf, f/u opacities / effusion TECHNIQUE: Frontal chest projection is submitted. Examination is limited by patient positioning and t echnique. COMPARISON: 07/19/2024 FINDINGS: Stable moderate to large layering right pleural effusion with underlying airspace opacification. Cent ral interstitial prominence suggesting edema congestion stable. No focal opacities on the left. No pneumothorax. The heart is normal in size. Left chest wall pacer placement. IMPRESSION: Stable findings as above.
--- NOTE | 2024-07-24 10:53 | P.CNS ---
Date of Consult: 07/24/24 Chief Complaint: Groin Pain History of Present Illness: Patient with PMH of advanced heart failure, systolic in nature, NYHA 4, stage C, most likely ischemic in nature, follows up in [facility] with heart failure team, history of colon cancer in remission, got admitted this time with left scrotal cellulitis, developed some lower extremities edema and SOB during hospital admission, denies chest pain, no palpitations, no syncope, he got an ICD. Allergies No Known Allergies Allergy (Verified 07/20/24 02:30) Home medications list reviewed: Yes Home Medications: Aspirin [Aspirin EC 81 MG] 1 tab PO DAILY 09/28/22 Atorvastatin Calcium 20 mg PO DAILY 09/28/22 Furosemide 1 tab PO DAILY PRN 07/20/24 Metoprolol Succinate 1 tab PO DAILY 07/20/24 - Past Medical/Surgical History Diabetic: Yes -: HTN -: Systolic Diastolic CHF LVEF 10% -: Moderate Pulmonary HTN -: DM II -: CKD III with Proteinuria (Dr. Leary/ [facility]) -: CAD/ ID -: Colon Cancer Stage II -: cardiac stents placement in January -: Bowel Resection -: Ileostomy reversal - Family History Father Medical History: Hypertension, Diabetes - Social History Alcohol use: No CD- Drugs: No Caffeine use: Yes Place of Residence: Home Review of Systems 10-point ROS is otherwise unremarkable Physical Examination Temp Pulse Resp BP Pulse Ox 97.3 F 75 16 106/73 98 07/24/24 08:00 07/24/24 08:51 07/24/24 08:00 07/24/24 08:51 07/24/24 08:00 General: Alert, In no apparent distress HEENT: Atraumatic, PERRLA, Mucous membr. moist/pink, EOMI, Sclerae nonicteric Neck: Supple, 2+ carotid pulse no bruit, No LAD, Without JVD or thyroid abnorm ality Respiratory: Clear to auscultation bilaterally, Normal air movement Cardiovascular: Regular rate/rhythm, Normal S1 S2, Edema Gastrointestinal: Normal bowel sounds, No tenderness Musculoskeletal: No tenderness Integumentary: No rashes Neurological: Normal gait, Normal speech, Normal tone, Normal affect Lymphatics: No axilla or inguinal lymphadenopathy - Problems (1) Acute on chronic combined systolic and diastolic heart failure Current Visit: Yes Status: Acute Plan: Patient echo shows severe systolic and diastolic heart failure with severe global hypokinesis, patient is already established with [facility] and getting worked for possible LVAD, Lasix 20 mg IV q 6 hours. 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
[2024-07-24] MEDS: HYDROCODONE/APAP 5/325 MG TAB PO PRN (13:28)
[2024-07-25 06:23] LABS: Absolute Basophils 0.2 K/uL (0-0.5); Absolute Eosinophils 0.3 K/uL (0-0.5); Absolute Lymphocytes (CBC) 2.4 K/uL (0.7-4.9); Absolute Monocytes 1.3 K/uL (0.1-1.3); Eosinophils % 3.3 % (0-4.4); Hematocrit 46.4 % (39.6-49.0); Hemoglobin 14.6 g/dL (13.6-17.9); Lymphocytes % 26.4 % (15.3-44.8); MCH 27.5 pg (27.0-35.0); MCHC 31.6 g/dL (32.0-36.0); MPV 11.2 fL (7.6-11.3); Monocytes % 13.8 % (3.3-12.3); Neutrophils % 54.5 % (41.7-73.7); Nucleated Red Blood Cells % 0.4 % (0-0); Platelets 140 thou/uL (152-406); RBC Red Blood Cell Count 5.33 M/uL (4.33-5.43); Red Cell Distribution Width 18.2 % (12.1-15.2)
[2024-07-25 06:46] LABS: Albumin 2.4 g/dL (3.4-5.0); Albumin/Globulin Ratio 0.7 (1.1-1.8); Anion Gap 12.3 mEq/L (5.0-15.0); Bilirubin Direct 0.4 mg/dL (0-0.2); Bilirubin Indirect, Calculated 0.4 mg/dL (0.2-0.8); Bilirubin Total 0.8 mg/dL (0.2-1.0); Globulin 3.4 g/dL (2.3-3.5); Magnesium 1.9 mg/dL (1.6-2.4); Potassium 4.3 mEq/L (3.5-5.1); Protein, Total 5.8 g/dL (6.4-8.2); Uric Acid 7.8 mg/dL (3.5-7.2)
[2024-07-25] MEDS: SODIUM BICARB 325 MG TAB PO SCH ×2 (08:10→20:19)
--- NOTE | 2024-07-25 09:57 | P.PN ---
Date of Service: 07/25/24 Subjective: woke up nauseated today. Triggered by smell of food. No episodes of vomiting doesn't feel constipated. 1 decent sized BM yesterday per patient still feels very weak, fatigued, rundown feels like hes emptying his bladder when he urinates but think his UOP is lower than normal lower extremity edema improving ROS: 10 point ROS as noted above, otherwise negative Physical Exam: GEN: Alert, oriented, fatigued appearing CV: Regular rate and rhythm, anasarca Pulm: Non-labored respirations on room air at rest, diminished at right base ABD: Soft, nontender, nondistended Integumentary: mild scrotal swelling with erythema; improving. Neuro: Normal speech, normal affect vitals reviewed Problem List: Acute on chronic combined systolic & diastolic CHF (HFrEF - 10%) Pelvic/Scrotal cellulitis Dermatomycosis Left epididymitis UTI TANG on CKD3 Metabolic acidosis NIDDM2 Hx CAD s/p PCI Hx colon/cecal cancer, Stage II; s/p ex-lap, right hemicolectomy, ileo-colic anastomosis, diverting loop ileostomy on 03/28/23 with subsequent ileostomy closure 04/25/24 (Final path: T3 N0, with no indications for adjuvant therapy) Acute on chronic combined systolic & diastolic CHF (HFrEF - 10%) Hx CAD s/p PCI follows Dr. Interiano at [facility] - reports having f/u in ~2 weeks with a manager switch CXR (07/19): moderate R pleural effusion w/ R basilar atelectasis. Mild b/l interstitial pulm opacities echo (07/23): 10% EF, severe global hypokinesis, diastolic dysfunction, elevated filling pressure, moderate pulm HTN prior echo (04/16/24): 20-24% EF, global hypokinesis, grade 2 diastolic dysfunction, RV systolic fxn severely depressed. moderate MR/TR had thoracentesis 06/10 and had 1.5L fluid removed. repeat CXR (07/24): stable mod-large right pleural effusion. +central interstitial prominence suggesting edema. Cardiology and nephrology consulted oral lasix switched to IV lasix 20 mg q6h per nephro (07/24) midodrine added 07/24 resume home aspirin, statin check orthostatic vitals, daily weight, UOP Initiated transfer to tertiary level of care facility 07/25 given his increased difficulty diuresing with low BP and worsening renal function and anasarca. initaited to [facility] - has been there before and cardiology familiar with him there likely will need further cardiac support / ionotropic support / possibly CRRT if doesn't turn around Pelvic/Scrotal cellulitis Dermatomycosis Left epididymitis UTI on admission, presents with worsening groin pain, left testicular swelling for ~3 days. No n/v/d. No fever/chills. scrotal u/s (07/19): Mild left epididymitis. Urine cx (07/20): Klebsiella Pneumoniae previously on empiric cefepime / vanc (07/20-07/23) abx deescalated to Augmentin (07/23-08/02); continue for 10 days total continue miconazole topical (07/20-) complete diflucan (07/21-07/25) - day 5 of 5 pain control TANG on CKD3 Metabolic acidosis still with quite a bit of pitting edema in lower extremities, difficult to diurese with BP low continue to monitor renal function oral lasix switched to IV lasix 20 mg BID per nephro continue oral bicarb; increased 07/25 s/p Albumin 06/30 NIDDM2 accu-cheks, SSI Hx colon/cecal cancer, Stage II; s/p ex-lap, right hemicolectomy, ileo-colic anastomosis, diverting loop ileostomy on 03/28/23 with subsequent ileostomy closure 04/25/24 (Final path: T3 N0, with no indications for adjuvant therapy) continue supportive care VTE: heparin sq Code: Full Dispo: [facility] for [facility] failure team / continuity of care Time Spent Managing Pts Care (In Minutes): 51
[2024-07-25 11:49] LABS: UR PROTEIN 91.5 mg/dL (<11.9); Urine Protein/Creatinine Ratio 1.04 ratio (<0.15)
--- NOTE | 2024-07-25 11:58 | P.PN ---
Nephrology Progress Note Pt continues to cit orthopnea and dyspnea with mild exertion, PT reports reduced endurance c/w earlier in the week, BP soft but non orthostatic. Has not diuresed much on scheduled lasix, case discussed with Dr. Luna Vital Signs, Medications, Blood Work, and Imaging reviewed in the chart General: Appears chronically ill but NAD HEENT: Atraumatic, on LFNC Neck: Supple, JVD noted Respiratory: Normal air movement, reduced at bases Cardiovascular: Non tachy, cardiac gallop, peripheral edema present Gastrointestinal: Mild distention, NT Musculoskeletal: No contractures Integumentary: No rashes Neurological: Normal speech, awake, alert Conclusions/Impression: Stage II TANG 2nd to Type 1/2 CRS and relative hypotension on underlying CKD NOS -Cr level slowly upward rising, pt has not been effectively diuresing on scheduled lasix Hyperchloremic Metabolic Acidosis -In the setting of renal impairment, check urine AG Systolic Diastolic CHF, A/C Severe CMP unspecified with marked Global Hypokinesis and possible LVEF drop since earlier in the year Volume overload, pulm edema -Recommend evaluating for transfer to tertiary center to see HF team, will likely need ionotropic support to augment diuresis -If he fails to diurese, and/or renal function worsens, UF may need to be c onsidered Acute Cystitis with (microscopic) hematuria -Continue Abx based on culture results Stephen Ochoa MD, JACKIE
--- NOTE | 2024-07-25 12:28 | P.DS ---
Admission Date: 07/19/24 Discharge Date: 07/26/24 Reason for Admission: Groin Pain Consultations: Cardiology - Dr. Johnson Nephrology - Dr. Leary, Dr. Ochoa Brief History of Present Illness: 53yo M, PMH: combined systolic/diastolic CHF, hypertension, CAD s/p PCI, colon cancer, NIDDM2 Patient was brought to ER with groin pain. Cellulitis in the pelvic region and swollen areas of the left testicle . Symptoms started 3 days ago with scrotal pain and swelling spreading onto the left inguinal region. Denies any fever or chills. No nausea vomiting or diarrhea. Pain and swelling and redness was increasing and was brought to ER. Denies any trauma. No sick contacts. Patient was assessed in the ER and is admitted for further management of the same Hospital Course: Problem List: Acute on chronic combined systolic & diastolic CHF (HFrEF - 10%) Pelvic/Scrotal cellulitis Dermatomycosis Left epididymitis UTI TANG on CKD3 Metabolic acidosis NIDDM2 Hx CAD s/p PCI Hx colon/cecal cancer, Stage II; s/p ex-lap, right hemicolectomy, ileo-colic anastomosis, diverting loop ileostomy on 03/28/23 with subsequent ileostomy closure 04/25/24 (Final path: T3 N0, with no indications for adjuvant therapy) Physician discharge instructions: Patient initially presented with 3 days of left groin/testicle pain, swelling and erythema. Multifactorial etiology secondary to pelvic/scrotal cellulitis complicated by Dermatomycosis and Left epididymitis seen on ultrasound. He received 3 days of empiric cefepime / vancomycin and had improvement of his symptoms. Antiobiotics were deescalated to oral augmentin 07/23 and patient demonstrated continued improvement. Scrotal/groin erythema mostly resolved. Patient completed 5 days of diflucan and has been on a topical miconazole since 07/20. During his hospitalization he was found to have a UTI. Urine culture grew Klebsiella Pneumoniae (resistant to cipro/ampicillin). He has been afebrile without leukocytosis throughout hospitalization. On admission, he was also noted to have moderate amount of lower extremity edema. Chest xray noted moderate right pleural effusion with right basilar atelectasis and mild bilateral interstitial pulmonary opacities likely pulm edema. Echo this hospitalization with 10% EF, severe global hypokinesis, diastolic dysfunction, elevated filling pressure, moderate pulmonary hypertension. (previously ~20-24% back in March per OSH records). Cardiology and nephrology were consulted. He was started on 20 mg IV lasix q6h and midodrine but had minimal improvement. Creatinine was 1.62 on admission and has been slowly worsening throughout hospitalization. Suspect multifactorial etiology secondary to CRS / relative hypotension / diuresis. Creatinine on 07/25: 2.24 Initiated transfer to tertiary level care facility 07/25 after discussion with specialists given his increased difficulty diuresing with low BP and worsening renal function and anasarca. Transfer initiated to [facility] - has been there before and cardiology familiar with him there and will likely will need further cardiac support / ionotropic support / possibly CRRT if doesn't turn around. Physical Exam: GEN: Alert, oriented, fatigued appearing CV: Regular rate and rhythm, anasarca Pulm: Non-labored respirations on 2L NC ABD: Soft, nontender, nondistended Integumentary: mild scrotal swelling Neuro: Normal speech, normal affect Vital Signs/Physical Exam: Temp Pulse Resp BP Pulse Ox 97.6 F 72 16 117/85 95 07/25/24 04:00 07/25/24 11:22 07/25/24 08:00 07/25/24 11:22 07/25/24 08:00 Laboratory Data at Discharge: WBC 9.20 thou/uL (4.3-10.9) 07/25/24 04:58 Hgb 14.6 g/dL (13.6-17.9) 07/25/24 04:58 Hct 46.4 % (39.6-49.0) 07/25/24 04:58 Plt Count 140 thou/uL (152-406) L 07/25/24 04:58 PT 16.0 SECONDS (9.4-12.5) H 07/19/24 21:52 INR 1.44 07/19/24 21:52 Sodium 136 mEq/L (136-145) 07/25/24 04:58 Potassium 4.3 mEq/L (3.5-5.1) 07/25/24 04:58 BUN 47 mg/dL (7-18) H 07/25/24 04:58 Creatinine 2.24 mg/dL (0.70-1.30) H 07/25/24 04:58 Glucose 86 mg/dL (74-106) 07/25/24 04:58 Uric Acid 7.8 mg/dL (3.5-7.2) H 07/25/24 04:58 Magnesium 1.9 mg/dL (1.6-2.4) 07/25/24 04:58 Total Bilirubin 0.8 mg/dL (0.2-1.0) 07/25/24 04:58 AST 35 U/L (15-37) 07/25/24 04:58 ALT 25 U/L (16-61) 07/25/24 04:58 Alkaline Phosphatase 158 U/L (45-117) H 07/25/24 04:58 Home Medications: Aspirin [Aspirin EC 81 MG] 1 tab PO DAILY 09/28/22 Atorvastatin Calcium 20 mg PO DAILY 09/28/22 Furosemide 1 tab PO DAILY PRN 07/20/24 Metoprolol Succinate 1 tab PO DAILY 07/20/24 Physician Discharge Instructions: Physician discharge instructions: Patient initially presented with 3 days of left groin/testicle pain, swelling and erythema. Multifactorial etiology secondary to pelvic/scrotal cellulitis complicated by Dermatomycosis and Left epididymitis seen on ultrasound. He received 3 days of empiric cefepime / vancomycin and had improvement of his symptoms. Antiobiotics were deescalated to oral augmentin 07/23 and patient demonstrated continued improvement. Scrotal/groin erythema mostly resolved. Patient completed 5 days of diflucan and has been on a topical miconazole since 07/20. During his hospitalization he was found to have a UTI. Urine culture grew Klebsiella Pneumoniae (resistant to cipro/ampicillin). He has been afebrile without leukocytosis throughout hospitalization. On admission, he was also noted to have moderate amount of lower extremity edema. Chest xray noted moderate right pleural effusion with right basilar atelectasis and mild bilateral interstitial pulmonary opacities likely pulm edema. Echo this hospitalization with 10% EF, severe global hypokinesis, diastolic dy sfunction, elevated filling pressure, moderate pulmonary hypertension. (previously ~20-24% back in March per OSH records). Cardiology and nephrology were consulted. He was started on 20 mg IV lasix q6h and midodrine but had minimal improvement. Creatinine was 1.62 on admission and has been slowly worsening throughout hospitalization. Suspect multifactorial etiology secondary to CRS / relative hyp otension / diuresis. Creatinine on 07/25: 2.24 Initiated transfer to tertiary level care facility 07/25 after discussion with specialists given his increased difficulty diuresing with low BP and worsening renal function, anasarca. 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 Followup: NONE,NONE [Primary Care Provider] - Time spent managing pt's care (in minutes): 45
--- NOTE | 2024-07-25 15:58 | P.PN ---
Subjective Date of Service: 07/25/24 Chief Complaint: Groin Pain Subjective: No new changes Review of Systems 10-point ROS is otherwise unremarkable Physical Examination - Vital Signs Temperature: 97.0 F Blood Pressure: 117/85 Pulse: 72 Respirations: 16 Pulse Ox (%): 95 - Physical Exam General: Alert, In no apparent distress HEENT: Atraumatic, PERRLA, EOMI Neck: Supple, JVD not distended Respiratory: Clear to auscultation bilaterally, Normal air movement Cardiovascular: Regular rate/rhythm, Normal S1 S2, Edema (+1 edema to bilateral lower extremities) Gastrointestinal: Normal bowel sounds, No tenderness Musculoskeletal: No tenderness Integumentary: No rashes Neurological: Normal speech, Normal tone, Normal affect Lymphatics: No axilla or inguinal lymphadenopathy - Studies Medications List Reviewed: Yes Assessment And Plan - Current Problems (Diagnosis) (1) Acute on chronic combined systolic and diastolic heart failure Current Visit: Yes Status: Acute Plan: Patient echo shows severe systolic and diastolic heart failure with severe global hypokinesis, patient is already established with [facility] and getting worked for possible LVAD, Lasix 20 mg IV q 6 hours. 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 (2) CAD (coronary artery disease) Current Visit: Yes Status: Acute Plan: per patient he was diagnosed with complex CAD, continue ASA 81 mg daily Continue statins Continue to follow up with outpatient [employer] supervisor.
[2024-07-25] MEDS: GLUCERNA SHAKE 237 ML CAN PO SCH (20:19)
[2024-07-26 06:04] LABS: Absolute Basophils 0.1 K/uL (0-0.5); Absolute Eosinophils 0.2 K/uL (0-0.5); Absolute Lymphocytes (CBC) 1.7 K/uL (0.7-4.9); Absolute Monocytes 0.6 K/uL (0.1-1.3); Absolute Neutrophil 4.6 K/uL (1.8-8.0); Basophils % 1.3 % (0-1.3); Eosinophils % 2.7 % (0-4.4); Hematocrit 44.7 % (39.6-49.0); Hemoglobin 14.4 g/dL (13.6-17.9); Lymphocytes % 23.2 % (15.3-44.8); MCH 27.8 pg (27.0-35.0); MCHC 32.2 g/dL (32.0-36.0); MCV 86.1 fL (80-100); MPV 10.1 fL (7.6-11.3); Monocytes % 8.8 % (3.3-12.3); Nucleated Red Blood Cells % 0.6 % (0-0); Platelets 147 thou/uL (152-406)
[2024-07-26 06:30] LABS: Albumin 2.3 g/dL (3.4-5.0); Albumin/Globulin Ratio 0.6 (1.1-1.8); Anion Gap 12.1 mEq/L (5.0-15.0); Bilirubin Total 0.8 mg/dL (0.2-1.0); Globulin 3.8 g/dL (2.3-3.5); Magnesium 1.9 mg/dL (1.6-2.4); Phosphorus 3.9 mg/dL (2.5-4.9); Potassium 4.1 mEq/L (3.5-5.1); Protein, Total 6.1 g/dL (6.4-8.2)
--- NOTE | 2024-07-26 11:23 | P.PN ---
Date of Service: 07/26/24 Subjective: feeling slightly better compared to yesterday nausea resolved yesterday. feels like hes urinating more today denies any worsening problems still feels weak ROS: 10 point ROS as noted above, otherwise negative Physical Exam: GEN: Alert, oriented, fatigued appearing CV: Regular rate and rhythm, anasarca Pulm: Non-labored respirations on 2L NC, diminished at right base ABD: Soft, nontender, nondistended Neuro: Normal speech, normal affect vitals reviewed Problem List: Acute on chronic combined systolic & diastolic CHF (HFrEF - 10%) Pelvic/Scrotal cellulitis Dermatomycosis Left epididymitis UTI TANG on CKD3 Metabolic acidosis NIDDM2 Hx CAD s/p PCI Hx colon/cecal cancer, Stage II; s/p ex-lap, right hemicolectomy, ileo-colic anastomosis, diverting loop ileostomy on 03/28/23 with subsequent ileostomy closure 04/25/24 (Final path: T3 N0, with no indications for adjuvant therapy) Acute on chronic combined systolic & diastolic CHF (HFrEF - 10%) Hx CAD s/p PCI follows Dr. Interiano at [facility] - reports having f/u in ~2 weeks with a order to delivery supervisor CXR (07/19): moderate R pleural effusion w/ R basilar atelectasis. Mild b/l interstitial pulm opacities echo (07/23): 10% EF, severe global hypokinesis, diastolic dysfunction, elevated filling pressure, moderate pulm HTN prior echo (04/16/24): 20-24% EF, global hypokinesis, grade 2 diastolic dysfunction, RV systolic fxn severely depressed. moderate MR/TR had thoracentesis 06/10 and had 1.5L fluid removed. repeat CXR (07/24): stable mod-large right pleural effusion. +central interstitial prominence suggesting edema. Cardiology and nephrology consulted oral lasix switched to IV lasix 20 mg q6h per nephro (07/24) midodrine added 07/24 continue home aspirin, statin check orthostatic vitals, daily weight, UOP Initiated transfer to tertiary level of care facility 07/25 given his increased difficulty diuresing with low BP and worsening renal function and anasarca. initaited to [facility] - has been there before and cardiology famil iar with him there likely will need further cardiac support / ionotropic support / possibly CRRT if doesn't turn around Pelvic/Scrotal cellulitis Dermatomycosis Left epididymitis UTI on admission, presents with worsening groin pain, left testicular swelling for ~3 days. No n/v/d. No fever/chills. scrotal u/s (07/19): Mild left epididymitis. Urine cx (07/20): Klebsiella Pneumoniae previously on empiric cefepime / vanc (07/20-07/23) abx deescalated to Augmentin (07/23-08/02); continue for 10 days total continue miconazole topical (07/20-) s/p 5 days of diflucan (07/21-07/25) pain control TANG on CKD3 Metabolic acidosis still with quite a bit of pitting edema in lower extremities, difficult to diurese with BP low slight worsening each day continue oral bicarb; increased 07/26 s/p Albumin 06/30 NIDDM2 accu-cheks, SSI Hx colon/cecal cancer, Stage II; s/p ex-lap, right hemicolectomy, ileo-colic fly stomosis, diverting loop ileostomy on 03/28/23 with subsequent ileostomy closure 04/25/24 (Final path: T3 N0, with no indications for adjuvant therapy) continue supportive care VTE: heparin sq Code: Full Dispo: initiated transfer to [facility] 07/25 for advanced heart failure team / continuity of care Time Spent Managing Pts Care (In Minutes): 51
[2024-07-26] MEDS: SODIUM BICARB 325 MG TAB PO SCH (11:48)
--- NOTE | 2024-07-26 21:30 | P.PN ---
Date of Service: 07/26/24 Vital Signs Temp Pulse Resp BP Pulse Ox 97.2 F 78 17 111/79 96 07/26/24 20:00 07/26/24 20:00 07/26/24 20:00 07/26/24 20:00 07/26/24 20:00 Medications Acetaminophen (Acetaminophen 325 Mg Tablet) 650 mg PO Q4HP PRN PRN Reason: Pain scale 2-4 (Mild) Amoxicillin/Clavulanate Potassium (Amox/K Clav 500 Mg Tab) 500 mg PO BID [facility] Stop: 08/02/24 09:01 Last Admin: 07/26/24 21:26 Dose: 500 mg Aspirin (Aspirin Ec 81 Mg Tab) 81 mg PO DAILY [facility] Last Admin: 07/26/24 08:49 Dose: 81 mg Atorvastatin Calcium (Atorvastatin 20 Mg Tab) 20 mg PO DAILY [facility] Last Admin: 07/26/24 08:49 Dose: 20 mg Enteral Nutritional Formula (Glucerna Shake 237 Ml Can) 237 ml PO BID [facility] Last Admin: 07/26/24 21:26 Dose: 237 ml Furosemide (Furosemide 20 Mg/ 2ml Vial) 20 mg IV Q6H [facility] Last Admin: 07/26/24 16:37 Dose: 20 mg Glucagon (Glucagon 1 Mg/Vial) 1 mg IM 1X PRN PRN Reason: HYPOGLYCEMIA Heparin Sodium (Porcine) (Heparin 5000 Unit/Ml 1 Ml Vial) 5,000 unit SQ Q8HR [facility] Last Admin: 07/26/24 16:37 Dose: 5,000 unit Dextrose (Dextrose 10% Water Iv Soln.) 125 mls @ 0 mls/hr IV PRN PRN; Protocol PRN Reason: HYPOGLYCEMIA Insulin Human Regular (Insulin Regular (Human) 100 Unit/Ml) 0 unit SQ ACHS [facility]; Protocol Last Admin: 07/26/24 21:00 Dose: Not Given Metoprolol Succinate (Metoprolol Xl 25 Mg Tab) 25 mg PO DAILY [facility] Last Admin: 07/26/24 08:49 Dose: 25 mg Miconazole Nitrate (Miconazole 2% Topical 15 Gm) 1 appl TOP BID [facility] Last Admin: 07/26/24 21:26 Dose: 1 appl Midodrine (Midodrine Hcl 5 Mg Tablet) 5 mg PO TID [facility] Last Admin: 07/26/24 21:26 Dose: 5 mg Ondansetron HCl (Ondansetron 4 Mg/2 Ml Vial) 4 mg IV Q6HP PRN PRN Reason: NAUSEA / VOMITING Last Admin: 07/25/24 05:02 Dose: 4 mg Sodium Bicarbonate (Sodium Bicarb 325 Mg Tab) 650 mg PO QID [facility] Last Admin: 07/26/24 21:25 Dose: 650 mg Assessment/ Plan: Nephrology Progress Note No Dyspnea. +CHAVARRIA No Chest Pain Feeling better No Acute Events Overnight Vital Signs, Medications, Blood Work, and Imaging reviewed in the chart General: Oriented x3, Cooperative HEENT: Atraumatic Neck: Supple Respiratory: Normal air movement Cardiovascular: Regular rate/rhythm, Edema Gastrointestinal: Non-distended, Tenderness Musculoskeletal: No clubbing, No contractures Integumentary: No rashes, No cyanosis Neurological: Normal speech Blood work reviewed in the chart. Imagings Data: Exam Date: 07/19/24 Reason for Exam: ABDOMINAL DISTENTION Report Status: Signed Procedure: Chest Single View History: Abdominal pain Comparison: May 2024 Moderate right pleural effusion with right basilar atelectasis Mild bilateral interstitial lung opacities Heart is enlarged. Pacemaker leads in place IMPRESSION: Moderate right pleural effusion Mild bilateral interstitial pulmonary opacities may indicate mild interstitial pulmonary edema Exam Date: 07/19/24 Reason for Exam: PAIN Report Status: Signed EXAMINATION: ULTRASOUND DUPLEX OF SCROTUM AND TESTICLES CLINICAL INDICATION: Testicular pain TECHNIQUE: Duplex scan of the scrotal contents was performed including real-time color and spectral Doppler ultrasonography with arterial inflow and venous outflow. COMPARISON: No prior exam. FINDINGS: Right testicle measures 4.4 x 2.8 x 3.2 cm. Mildly inhomogeneous echotexture. Right epididymis not visualized. Left testicle measures 4 x 2.3 x 3.2 cm. Mildly homogeneous echotexture. Mildly increased flow left epididymis. Each testicle appears to demonstrate diminished blood flow. IMPRESSION: Mild left epididymitis Each testicle appears to demonstrate diminished blood flow. I suspect this is due to technical factors rather than pathology. A bilateral testicular torsion is doubtful. If the patient has clinical symptoms to suggest this then a follow-up testicular ultrasound would be recommended for reevaluation Conclusions/Impression: Stage I TANG in the setting of relative hypotension, diuresis and NSAIDs prior to admission CKD III with Proteinuria -No NSAIDs NAG Metabolic Acidosis -Increase oral bicarb Orthostatic Hypotension -Continue Midodrine -Cardiology following Systolic Diastolic CHF, A/C Ischemic CMP with Global Hypokinesis LVEF 10% followed by Dr. Interiano at [facility] Moderate Pulmonary HTN -Continue Metoprolol -Continue Lasix IV q6h -Echocardiogram reviewed DM II with CKD -RISS Hypoalbuminemia -Protein supplementation as tolerated Acute Cystitis with Hematuria -Continue Abx Pelvic/ Scrotal Cellulitis -Continue Abx Case reviewed with Dr. Luna Hospitalist note reviewed
[2024-07-27 06:19] LABS: Hematocrit 42.7 % (39.6-49.0); Hemoglobin 13.7 g/dL (13.6-17.9); MCH 27.6 pg (27.0-35.0); MCHC 32.2 g/dL (32.0-36.0); MCV 85.6 fL (80-100); MPV 10.1 fL (7.6-11.3); Platelets 127 thou/uL (152-406); RBC Red Blood Cell Count 4.98 M/uL (4.33-5.43); Red Cell Distribution Width 18.1 % (12.1-15.2)
[2024-07-27 06:40] LABS: Albumin 2.3 g/dL (3.4-5.0); Albumin/Globulin Ratio 0.6 (1.1-1.8); Anion Gap 10.6 mEq/L (5.0-15.0); Bilirubin Total 0.8 mg/dL (0.2-1.0); Globulin 3.8 g/dL (2.3-3.5); Magnesium 1.8 mg/dL (1.6-2.4); Phosphorus 3.3 mg/dL (2.5-4.9); Potassium 3.6 mEq/L (3.5-5.1); Protein, Total 6.1 g/dL (6.4-8.2)
[2024-07-27] MEDS: MAGNESIUM SULFATE 1 gm IVPB 1 GM/100 ML BAG IV ONE (08:00)
[2024-07-27] MEDS: POTASSIUM CL SA 10 MEQ TAB PO ONE (08:00)
--- NOTE | 2024-07-27 10:28 | P.PN ---
Date of Service: 07/27/24 Subjective: feels slightly better today minimal nausea, improved compared to yesterday agreeable to male latoya for accurate UOP pending transfer ROS: 10 point ROS as noted above, otherwise negative Physical Exam: GEN: Alert, oriented, fatigued appearing CV: Regular rate and rhythm, anasarca Pulm: Non-labored respirations on 2L NC, diminished at right base ABD: Soft, nontender, nondistended Neuro: Normal speech, normal affect Integumentary: left foot: macerated skin between all toes, Right foot: between 3-5, no purulent drainage, mild erythema around vitals reviewed Problem List: Acute on chronic combined systolic & diastolic CHF secondary to ICMP(HFrEF - 10%) Macerated skin b/l toes Pelvic/Scrotal cellulitis Dermatomycosis Left epididymitis UTI TANG on CKD3 Metabolic acidosis NIDDM2 Hx CAD, multivessel s/p PCI; h/o transmural scar h/o [id number] VT and then vfib s/p life vest shock 11/2022, h/o VT cardiac arrest 09/2022, s/p shore/[place] dual chamber AICD 08/2023 Hx colon/cecal cancer, Stage II; s/p ex-lap, right hemicolectomy, ileo-colic anastomosis, diverting loop ileostomy on 03/28/23 with subsequent ileostomy closure 04/25/24 (Final path: T3 N0, with no indications for adjuvant therapy) Acute on chronic combined systolic & diastolic CHF (HFrEF - 10%) Macerated skin b/l toes Hx CAD, multivessel s/p PCI; h/o transmural scar follows Dr. 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 Mild b/l interstitial pulm opacities echo (07/23): 10% EF, severe global hypokinesis, diastolic dysfunction, elevated filling pressure, moderate pulm HTN prior echo (04/16/24): 20-24% EF, global hypokinesis, grade 2 diastolic dysfunction, RV systolic fxn severely depressed. moderate MR/TR had thoracentesis 06/10 and had 1.5L fluid removed. repeat CXR (07/24): stable mod-large right pleural effusion. +central interstitial prominence suggesting edema. Cardiology and nephrology consulted oral lasix switched to IV lasix 20 mg q6h per nephro (07/24) midodrine added 07/24 continue home aspirin, statin agreeable to sera klein for accurate UOP Initiated transfer to tertiary level of care facility 07/25 given his increased difficulty diuresing with low BP and worsening renal function and anasarca. [facility] declined 07/27; looking into other facilities likely will need further cardiac support / ionotropic support / possibly CRRT if doesn't turn around wash daily with vashe, and hydrogel between toes, started 07/27 Pelvic/Scrotal cellulitis Dermatomycosis Left epididymitis UTI on admission, presents with worsening groin pain, left testicular swelling for ~3 days. No n/v/d. No fever/chills. scrotal u/s (07/19): Mild left epididymitis. Urine cx (07/20): Klebsiella Pneumoniae previously on empiric cefepime / vanc (07/20-07/23) abx deescalated to Augmentin (07/23-08/02); continue for 10 days total continue miconazole topical (07/20-) s/p 5 days of diflucan (07/21-07/25) pain control TANG on CKD3 Metabolic acidosis still with quite a bit of pitting edema in lower extremities, difficult to diurese with BP low continue oral bicarb; increased 07/26 creatinine slightly improved 07/27 NIDDM2 accu-cheks, SSI Hx colon/cecal cancer, Stage II; s/p ex-lap, right hemicolectomy, ileo-colic anastomosis, diverting loop ileostomy on 03/28/23 with subsequent ileostomy closure 04/25/24 (Final path: T3 N0, with no indications for adjuvant therapy) continue supportive care VTE: heparin sq Code: Full Dispo: transfer initated to higher level of care; have not heard back yet initiated to [facility] Time Spent Managing Pts Care (In Minutes): 51
--- NOTE | 2024-07-27 13:23 | P.PN ---
Subjective Date of Service: 07/27/24 Chief Complaint: Groin Pain Subjective: No new changes, No C/O voiced, Tolerating diet, Ambulating, Improving Review of Systems 10-point ROS is otherwise unremarkable Physical Examination - Vital Signs Temperature: 96.8 F Blood Pressure: 115/82 Pulse: 73 Respirations: 19 Pulse Ox (%): 94 - Physical Exam General: Alert, In no apparent distress HEENT: Atraumatic, PERRLA, EOMI Neck: Supple, JVD not distended Respiratory: Clear to auscultation bilaterally, Normal air movement Cardiovascular: Regular rate/rhythm, Normal S1 S2, Edema Gastrointestinal: Normal bowel sounds, No tenderness Musculoskeletal: No tenderness Integumentary: No rashes Neurological: Normal speech, Normal tone, Normal affect Lymphatics: No axilla or inguinal lymphadenopathy - Studies Medications List Reviewed: Yes Assessment And Plan - Current Problems (Diagnosis) (1) Acute on chronic combined systolic and diastolic heart failure Current Visit: Yes Status: Acute Plan: Patient echo shows severe systolic and diastolic heart failure with severe global hypokinesis, patient is already established with [facility] system and getting worked for possible LVAD, Increase Lasix to 40 mg IV q 6 hours. monitor input and output and electrolytes BP soft on midodrine, recommend transfer to tertiary center due to weak diuresis, advanced heart failure/CAD, CKD with poor urine output as patient might need CRRT and LV support. (2) CAD (coronary artery disease) Current Visit: Yes Status: Acute Plan: per patient he was diagnosed with complex CAD, continue ASA 81 mg daily Continue statins Continue to follow up with outpatient decating machine operator.
[2024-07-27 15:22] VITALS: BMI 21.8
[2024-07-28 05:58] LABS: Hematocrit 43.4 % (39.6-49.0); MCH 27.6 pg (27.0-35.0); MCHC 32.2 g/dL (32.0-36.0); MCV 85.7 fL (80-100); MPV 10.3 fL (7.6-11.3); Platelets 145 thou/uL (152-406); RBC Red Blood Cell Count 5.07 M/uL (4.33-5.43); Red Cell Distribution Width 18.4 % (12.1-15.2)
[2024-07-28 06:06] LABS: Anion Gap 9.1 mEq/L (5.0-15.0); Magnesium 2.1 mg/dL (1.6-2.4); Potassium 4.1 mEq/L (3.5-5.1)
--- NOTE | 2024-07-28 08:37 | RAD REPORT ---
EXAMINATION: ONE VIEW CHEST XR CLINICAL INDICATION: Male, 53 years old.,f/u effusion/pulm edema TECHNIQUE: Frontal chest projection is submitted. Examination is limited by patient positioning and t echnique. COMPARISON: 07/24/2024 FINDINGS: Central interstitial prominence and perihilar hazy opacities. No pneumothorax. Moderate right pleura l effusion. Retrocardiac left basilar opacity, stable, may reflect atelectasis. The heart is normal in size. Left chest wall pacer in place. IMPRESSION: Stable findings, suggesting pulmonary edema.
--- NOTE | 2024-07-28 09:51 | P.PN ---
Subjective Date of Service: 07/28/24 Chief Complaint: Groin Pain Subjective: No new changes, No C/O voiced, Tolerating diet, Ambulating, Improving Review of Systems 10-point ROS is otherwise unremarkable Physical Examination - Vital Signs Temperature: 97.4 F Blood Pressure: 115/83 Pulse: 77 Respirations: 15 Pulse Ox (%): 91 - Physical Exam General: Alert, In no apparent distress HEENT: Atraumatic, PERRLA, EOMI Neck: Supple, JVD not distended Respiratory: Clear to auscultation bilaterally, Normal air movement Cardiovascular: Regular rate/rhythm, Normal S1 S2, Edema Gastrointestinal: Normal bowel sounds, No tenderness Musculoskeletal: No tenderness Integumentary: No rashes Neurological: Normal speech, Normal tone, Normal affect Lymphatics: No axilla or inguinal lymphadenopathy - Studies Medications List Reviewed: Yes Assessment And Plan - Current Problems (Diagnosis) (1) Acute on chronic combined systolic and diastolic heart failure Current Visit: Yes Status: Acute Plan: Patient echo shows severe systolic and diastolic heart failure with severe global hypokinesis, patient is already established with [facility] system and getting worked for possible LVAD, Increase Lasix to 40 mg IV q 6 hours. monitor input and output and electrolytes BP soft on midodrine, recommend transfer to tertiary center due to weak diuresis, advanced heart failure/CAD, CKD with poor urine output as patient might need CRRT and LV support. (2) CAD (coronary artery disease) Current Visit: Yes Status: Acute Plan: per patient he was diagnosed with complex CAD, continue ASA 81 mg daily Continue statins Continue to follow up with outpatient pin setter.
--- NOTE | 2024-07-28 11:37 | P.PN ---
Date of Service: 07/28/24 Subjective: ambulated around floor with PT today vitals stable. BP low-normal feeling weak/rundown but improving compared to 1-2 days ago ~850 ml UOP via purewick ROS: 10 point ROS as noted above, otherwise negative Physical Exam: GEN: Alert, oriented, fatigued appearing CV: Regular rate and rhythm, anasarca Pulm: Non-labored respirations on 2L NC, diminished at right base ABD: Soft, nontender, nondistended Neuro: Normal speech, normal affect Integumentary: left foot: macerated skin between all toes, Right foot: between 3-5, no purulent drainage, mild erythema vitals reviewed Problem List: Acute on chronic combined systolic & diastolic CHF secondary to ICMP(HFrEF - 10%) Macerated skin b/l toes Pelvic/Scrotal cellulitis Dermatomycosis Left epididymitis UTI TANG on CKD3 Metabolic acidosis NIDDM2 Hx CAD, multivessel s/p PCI; h/o transmural scar h/o [id number] VT and then vfib s/p life vest shock 11/2022, h/o [place] cardiac arrest 09/2022, s/p shore/[place] dual chamber AICD 08/2023 Hx colon/cecal cancer, Stage II; s/p ex-lap, right hemicolectomy, ileo-colic anastomosis, diverting loop ileostomy on 03/28/23 with subsequent ileostomy closure 04/25/24 (Final path: T3 N0, with no indications for adjuvant therapy) Acute on chronic combined systolic & diastolic CHF (HFrEF - 10%) Macerated skin b/l toes Hx CAD, multivessel s/p PCI; h/o transmural scar follows Dr. 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 Mild b/l interstitial pulm opacities echo (07/23): 10% EF, severe global hypokinesis, diastolic dysfunction, elevated filling pressure, moderate pulm HTN prior echo (04/16/24): 20-24% EF, global hypokinesis, grade 2 diastolic dysfunction, RV systolic fxn severely depressed. moderate MR/TR s/p thoracentesis (06/10): 1.5L fluid removed. repeat CXR (07/24): stable mod-large R pleural effusion. +central interstitial prominence suggesting edema. Cardiology and nephrology consulted continue IV lasix 20 mg q6h for now consider increasing lasix to 40 mg q6h per cardio if BP/renal function allows midodrine added 07/24 continue home aspirin, statin agreeable to sera klein for accurate UOP 07/27 initially attempted to transfer to tertiary level of care facility 07/25 given his increased difficulty diuresing with low BP and worsening renal function and anasarca. [facility] declined 07/27 will hold off on transfer given stability/improvement last 24-48 hours wash daily with vashe, and hydrogel between toes, started 07/27 Pelvic/Scrotal cellulitis Dermatomycosis Left epididymitis UTI on admission, presents with worsening groin pain, left testicular swelling for ~3 days. No n/v/d. No fever/chills. scrotal u/s (07/19): Mild left epididymitis. Urine cx (07/20): Klebsiella Pneumoniae previously on empiric cefepime / vanc (07/20-07/23) abx deescalated to Augmentin (07/23-08/02); continue for 10 days total continue miconazole topical (07/20-) s/p 5 days of diflucan (07/21-07/25) pain control TANG on CKD3 Metabolic acidosis still with quite a bit of pitting edema in lower extremities, difficult to diurese with BP low continue oral bicarb; increased 07/26 continue to monitor renal function NIDDM2 accu-cheks, SSI Hx colon/cecal cancer, Stage II; s/p ex-lap, right hemicolectomy, ileo-colic anastomosis, diverting loop ileostomy on 03/28/23 with subsequent ileostomy closure 04/25/24 (Final path: T3 N0, with no indications for adjuvant therapy) continue supportive care VTE: heparin sq Code: Full Dispo: ?SNF vs home with HH pending further diuresis, BP stable, renal function improves discussed with patient and mother - open to SNF Time Spent Managing Pts Care (In Minutes): 51
--- NOTE | 2024-07-28 21:27 | P.PN ---
Date of Service: 07/28/24 Vital Signs Temp Pulse Resp BP Pulse Ox 96.7 F L 82 20 111/69 96 07/28/24 20:00 07/28/24 20:00 07/28/24 20:00 07/28/24 20:00 07/28/24 20:00 Medications Acetaminophen (Acetaminophen 325 Mg Tablet) 650 mg PO Q4HP PRN PRN Reason: Pain scale 2-4 (Mild) Amoxicillin/Clavulanate Potassium (Amox/K Clav 500 Mg Tab) 500 mg PO BID [facility] Stop: 08/02/24 09:01 Last Admin: 07/28/24 08:42 Dose: 500 mg Aspirin (Aspirin Ec 81 Mg Tab) 81 mg PO DAILY [facility] Last Admin: 07/28/24 08:41 Dose: 81 mg Atorvastatin Calcium (Atorvastatin 20 Mg Tab) 20 mg PO DAILY [facility] Last Admin: 07/28/24 08:42 Dose: 20 mg Enteral Nutritional Formula (Glucerna Shake 237 Ml Can) 237 ml PO BID [facility] Last Admin: 07/28/24 08:42 Dose: 237 ml Furosemide (Furosemide 20 Mg/ 2ml Vial) 20 mg IV Q6H [facility] Last Admin: 07/28/24 17:43 Dose: 20 mg Glucagon (Glucagon 1 Mg/Vial) 1 mg IM 1X PRN PRN Reason: HYPOGLYCEMIA Heparin Sodium (Porcine) (Heparin 5000 Unit/Ml 1 Ml Vial) 5,000 unit SQ Q8HR [facility] Last Admin: 07/28/24 17:43 Dose: 5,000 unit Dextrose (Dextrose 10% Water Iv Soln.) 125 mls @ 0 mls/hr IV PRN PRN; Protocol PRN Reason: HYPOGLYCEMIA Insulin Human Regular (Insulin Regular (Human) 100 Unit/Ml) 0 unit SQ ACHS [facility]; Protocol Last Admin: 07/28/24 20:53 Dose: Not Given Metoprolol Succinate (Metoprolol Xl 25 Mg Tab) 25 mg PO DAILY [facility] Last Admin: 07/28/24 08:42 Dose: 25 mg Miconazole Nitrate (Miconazole 2% Topical 15 Gm) 1 appl TOP BID [facility] Last Admin: 07/28/24 08:43 Dose: 1 appl Midodrine (Midodrine Hcl 5 Mg Tablet) 5 mg PO TID [facility] Last Admin: 07/28/24 13:42 Dose: 5 mg Ondansetron HCl (Ondansetron 4 Mg/2 Ml Vial) 4 mg IV Q6HP PRN PRN Reason: NAUSEA / VOMITING Last Admin: 07/25/24 05:02 Dose: 4 mg Sodium Bicarbonate (Sodium Bicarb 325 Mg Tab) 650 mg PO QID [facility] Last Admin: 07/28/24 17:44 Dose: 650 mg Assessment/ Plan: Nephrology Progress Note No Dyspnea. +CHAVARRIA No Chest Pain Feeling better No Acute Events Overnight Vital Signs, Medications, Blood Work, and Imaging reviewed in the chart General: Oriented x3, Cooperative HEENT: Atraumatic Neck: Supple Respiratory: Normal air movement Cardiovascular: Regular rate/rhythm, Edema Gastrointestinal: Non-distended, Tenderness Musculoskeletal: No clubbing, No contractures Integumentary: No rashes, No cyanosis Neurological: Normal speech Blood work reviewed in the chart. Imagings Data: Exam Date: 07/19/24 Reason for Exam: ABDOMINAL DISTENTION Report Status: Signed Procedure: Chest Single View History: Abdominal pain Comparison: May 2024 Moderate right pleural effusion with right basilar atelectasis Mild bilateral interstitial lung opacities Heart is enlarged. Pacemaker leads in place IMPRESSION: Moderate right pleural effusion Mild bilateral interstitial pulmonary opacities may indicate mild interstitial pulmonary edema Exam Date: 07/19/24 Reason for Exam: PAIN Report Status: Signed EXAMINATION: ULTRASOUND DUPLEX OF SCROTUM AND TESTICLES CLINICAL INDICATION: Testicular pain TECHNIQUE: Duplex scan of the scrotal contents was performed including real-time color and spectral Doppler ultrasonography with arterial inflow and venous outflow. COMPARISON: No prior exam. FINDINGS: Right testicle measures 4.4 x 2.8 x 3.2 cm. Mildly inhomogeneous echotexture. Right epididymis not visualized. Left testicle measures 4 x 2.3 x 3.2 cm. Mildly homogeneous echotexture. Mildly increased flow left epididymis. Each testicle appears to demonstrate diminished blood flow. IMPRESSION: Mild left epididymitis Each testicle appears to demonstrate diminished blood flow. I suspect this is due to technical factors rather than pathology. A bilateral testicular torsion is doubtful. If the patient has clinical symptoms to suggest this then a follow-up testicular ultrasound would be recommended for reevaluation Conclusions/Impression: Stage I TANG in the setting of relative hypotension, diuresis and NSAIDs prior to admission CKD III with Proteinuria -No NSAIDs NAG Metabolic Acidosis -Continue oral bicarb Orthostatic Hypotension -Continue Midodrine -Cardiology following Systolic Diastolic CHF, A/C Ischemic CMP with Global Hypokinesis LVEF 10% followed by Dr. Interiano at [facility] Moderate Pulmonary HTN -Continue Metoprolol -Continue Lasix IV q6h DM II with CKD -RISS Hypoalbuminemia -Protein supplementation as tolerated Acute Cystitis with Hematuria -Continue Abx Pelvic/ Scrotal Cellulitis -Continue Abx Case reviewed with Dr. Luna Coring Machine Operator note reviewed
[2024-07-29 06:56] LABS: Albumin 2.5 g/dL (3.4-5.0); Albumin/Globulin Ratio 0.7 (1.1-1.8); Bilirubin Total 0.7 mg/dL (0.2-1.0); Globulin 3.8 g/dL (2.3-3.5); Protein, Total 6.3 g/dL (6.4-8.2)
--- NOTE | 2024-07-29 15:47 | P.PN ---
Subjective Date of Service: 07/29/24 Chief Complaint: Groin Pain Patient's scrotal swelling is almost resolved. No any other erythema and scrotal edema has resolved. Patient is very weak and needing assistance with transfer. Physical Examination - Vital Signs Temperature: 97 F Blood Pressure: 115/82 Pulse: 81 Respirations: 16 Pulse Ox (%): 96 - Studies Medications List Reviewed: Yes Assessment And Plan - Plan Physical examination General: Alert and oriented x3, NAD, HEENT: Anicteric sclera Neck: Supple, no elevated JVD Heart: Heart sounds 1 and 2 normal, regular rhythm, normal rate, no pedal edema Lungs: Clear to auscultation bilaterally, adequate breath sounds bilaterally, no rhonchi or crackles. Abdomen: Soft, nondistended, nontender, normal bowel sounds. Genitourinary: Scrotal edema and erythema significantly improved, mild penile edema. Extremities: No tenderness, no deformity Skin: Normal skin turgor, erythema-perineal area and involving the scrotum. Neuro: No focal motor deficit. Normal speech. Psychiatry: Normal mood, no agitation. 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%) Macerated skin b/l toes Pelvic/Scrotal cellulitis Dermatomycosis Left epididymitis UTI TANG on CKD3 Metabolic acidosis NIDDM2 Hx CAD, multivessel s/p PCI; h/o transmural scar h/o polymorphic VT and then vfib s/p life vest shock 11/2022, h/o VT cardiac arrest 09/2022, s/p shore/St yecenia dual chamber AICD 08/2023 Hx colon/cecal cancer, Stage II; s/p ex-lap, right hemicolectomy, ileo-colic anastomosis, diverting loop ileostomy on 03/28/23 with subsequent ileostomy c losure 04/25/24 Assessment and plan Pelvic cellulitis Dermatomycosis Scrotal ultrasound noted Continue current IV antibiotics Continue oral Diflucan and miconazole cream UTI Urine cultures growing gram-negative rods. Continue current antibiotics. Follow urine culture. Left epididymitis Scrotal edema Suspected mild epididymitis Continue antibiotic. Analgesics as needed CAD Acute on chronic systolic heart failure Status post recent PCI echo (07/23): 10% EF, severe global hypokinesis, diastolic dysfunction, elevated filling pressure, moderate pulm HTN prior echo (04/16/24): 20-24% EF, global hypokinesis, grade 2 diastolic dysfunction, RV systolic fxn severely depressed. moderate MR/TR s/p thoracentesis (06/10): 1.5L fluid removed. repeat CXR (07/24): stable mod-large R pleural effusion. +central interstitial prominence suggesting edema. Cardiology and nephrology are following Patient is being diuresed with IV lasix 20 mg q6h for now Scrotal edema almost resolved Continue midodrine for borderline hypotension continue home aspirin, statin Resume home dose aspirin and Lipitor Increase activity as tolerated. Continue PT. Pelvic/Scrotal cellulitis Dermatomycosis Left epididymitis UTI scrotal u/s (07/19): Mild left epididymitis. Urine cx (07/20): Klebsiella Pneumoniae Patient was previously on empiric cefepime / vanc (07/20-07/23) Antibiotics transitioned to oral Augmentin. Patient to complete 10 days of treatment. Patient completed 5 days of Diflucan for dermatomycosis Continue miconazole cream Analgesics as needed. Diabetes Insulin sliding scale Accu-Chek before every meal and at bedtime. TANG on CKD3 Metabolic acidosis continue oral bicarb. Serum creatinine is stable with current dose Lasix Nephrology is following. Hx colon/cecal cancer, Stage II; s/p ex-lap, right hemicolectomy, ileo-colic anastomosis, diverting loop ileostomy on 03/28/23 with subsequent ileostomy closure 04/25/24 continue supportive care DVT prophylaxis: Heparin SQ Advanced directive full code Disposition: Social service is assisting with arrangement for skilled rehab placement.
[2024-07-29 18:14] LABS: Magnesium 1.9 mg/dL (1.6-2.4); Phosphorus 3.4 mg/dL (2.5-4.9)
--- NOTE | 2024-07-29 19:37 | P.PN ---
Date of Service: 07/29/24 Vital Signs Temp Pulse Resp BP Pulse Ox 97.1 F 83 15 111/84 95 07/29/24 16:00 07/29/24 16:45 07/29/24 16:00 07/29/24 16:45 07/29/24 16:00 Medications Acetaminophen (Acetaminophen 325 Mg Tablet) 650 mg PO Q4HP PRN PRN Reason: Pain scale 2-4 (Mild) Amoxicillin/Clavulanate Potassium (Amox/K Clav 500 Mg Tab) 500 mg PO BID [facility] Stop: 08/02/24 09:01 Last Admin: 07/29/24 09:52 Dose: 500 mg Aspirin (Aspirin Ec 81 Mg Tab) 81 mg PO DAILY [facility] Last Admin: 07/29/24 09:38 Dose: 81 mg Atorvastatin Calcium (Atorvastatin 20 Mg Tab) 20 mg PO DAILY [facility] Last Admin: 07/29/24 09:52 Dose: 20 mg Enteral Nutritional Formula (Glucerna Shake 237 Ml Can) 237 ml PO BID [facility] Last Admin: 07/29/24 09:00 Dose: Not Given Furosemide (Furosemide 20 Mg/ 2ml Vial) 20 mg IV Q6H [facility] Last Admin: 07/29/24 16:45 Dose: 20 mg Glucagon (Glucagon 1 Mg/Vial) 1 mg IM 1X PRN PRN Reason: HYPOGLYCEMIA Heparin Sodium (Porcine) (Heparin 5000 Unit/Ml 1 Ml Vial) 5,000 unit SQ Q8HR [facility] Last Admin: 07/29/24 16:43 Dose: 5,000 unit Dextrose (Dextrose 10% Water Iv Soln.) 125 mls @ 0 mls/hr IV PRN PRN; Protocol PRN Reason: HYPOGLYCEMIA Insulin Human Regular (Insulin Regular (Human) 100 Unit/Ml) 0 unit SQ ACHS [facility]; Protocol Last Admin: 07/29/24 16:43 Dose: 2 unit Metoprolol Succinate (Metoprolol Xl 25 Mg Tab) 25 mg PO DAILY [facility] Last Admin: 07/29/24 09:39 Dose: 25 mg Miconazole Nitrate (Miconazole 2% Topical 15 Gm) 1 appl TOP BID [facility] Last Admin: 07/29/24 09:52 Dose: 1 appl Midodrine (Midodrine Hcl 5 Mg Tablet) 5 mg PO TID [facility] Last Admin: 07/29/24 13:27 Dose: 5 mg Ondansetron HCl (Ondansetron 4 Mg/2 Ml Vial) 4 mg IV Q6HP PRN PRN Reason: NAUSEA / VOMITING Last Admin: 07/25/24 05:02 Dose: 4 mg Sodium Bicarbonate (Sodium Bicarb 325 Mg Tab) 650 mg PO QID [facility] Last Admin: 07/29/24 16:43 Dose: 650 mg Assessment/ Plan: Nephrology Progress Note No Dyspnea. +CHAVARRIA No Chest Pain Feeling better No Acute Events Overnight Vital Signs, Medications, Blood Work, and Imaging reviewed in the chart General: Oriented x3, Cooperative HEENT: Atraumatic Neck: Supple Respiratory: Normal air movement Cardiovascular: Regular rate/rhythm, Edema Gastrointestinal: Non-distended, Tenderness Musculoskeletal: No clubbing, No contractures Integumentary: No rashes, No cyanosis Neurological: Normal speech Blood work reviewed in the chart. Imagings Data: Exam Date: 07/19/24 Reason for Exam: ABDOMINAL DISTENTION Report Status: Signed Procedure: Chest Single View History: Abdominal pain Comparison: May 2024 Moderate right pleural effusion with right basilar atelectasis Mild bilateral interstitial lung opacities Heart is enlarged. Pacemaker leads in place IMPRESSION: Moderate right pleural effusion Mild bilateral interstitial pulmonary opacities may indicate mild interstitial pulmonary edema Exam Date: 07/19/24 Reason for Exam: PAIN Report Status: Signed EXAMINATION: ULTRASOUND DUPLEX OF SCROTUM AND TESTICLES CLINICAL INDICATION: Testicular pain TECHNIQUE: Duplex scan of the scrotal contents was performed including real-time color and spectral Doppler ultrasonography with arterial inflow and venous outflow. COMPARISON: No prior exam. FINDINGS: Right testicle measures 4.4 x 2.8 x 3.2 cm. Mildly inhomogeneous echotexture. Right epididymis not visualized. Left testicle measures 4 x 2.3 x 3.2 cm. Mildly homogeneous echotexture. Mildly increased flow left epididymis. Each testicle appears to demonstrate diminished blood flow. IMPRESSION: Mild left epididymitis Each testicle appears to demonstrate diminished blood flow. I suspect this is due to technical factors rather than pathology. A bilateral testicular torsion is doubtful. If the patient has clinical symptoms to suggest this then a follow-up testicular ultrasound would be recommended for reevaluation Conclusions/Impression: Stage I TANG in the setting of relative hypotension, diuresis and NSAIDs prior to admission CKD III with Proteinuria -No NSAIDs NAG Metabolic Acidosis -Continue oral bicarb Orthostatic Hypotension -Continue Midodrine -Cardiology following Systolic Diastolic CHF, A/C Ischemic CMP with Global Hypokinesis LVEF 10% followed by Dr. Interiano at [facility] Moderate Pulmonary HTN -Continue Metoprolol -Continue Lasix IV q6h DM II with CKD -RISS Hypoalbuminemia -Protein supplementation as tolerated Acute Cystitis with Hematuria -Continue Abx Pelvic/ Scrotal Cellulitis -Continue Abx Hospitalist note reviewed
--- NOTE | 2024-07-29 20:49 | CON ---
History Of Present Illness: This is a 53-year-old male I was consulted for scrotal cellulitis and ep idermidis. The patient denies any headache, nausea, vomiting, chest pain, abdominal pain, constipati on, diarrhea. The patient was initially admitted with significant past medical history of congestive heart failure, diabetes mellitus, hypertension, coronary artery disease, myocardial infarction, stag e IV colon cancer, came to the emergency room with groin pain and cellulitis of the pelvic region and swelling of the left testicle. The patient has been treated with antibiotic including vancomycin an d cefepime. Past Medical History: As per HPI. Social History: Nonsmoker, nondrinker. Family History: Noncontributory. Medications: Vancomycin and cefepime. See MAR for other medications. Allergies: NO KNOWN DRUG ALLERGIES. Review of Systems: A 10-point review was performed. Physical Examination: General: This is a 53-year-old male malnourished, lying in bed, not in any acute cardiopulmonary dis tress. Vital Signs: Temperature 97, pulse 81, respirations 16, blood pressure 115/82. HEENT: Unremarkable. Neck: Supple. Lungs: Clear to auscultation. Heart: S1, S2. Regular. Abdomen: Soft. Bowel sounds present. Extremities: Trace edema. Mild tenderness on scrotal examination to the left side. Laboratory Data: Shows WBC 7.3, hemoglobin 14, platelets are 145. Chemistry shows BUN of 56, creati nine 2.02. Urinalysis showed wbc's 20-50 on 07/20. Assessment And Plan: A 53-year-old male with multiple medical problems, coming in pelvic cellulitis and left scrotal swelling. Ultrasound of the scrotum showed epidermidis of the left side and UA show ed urinary tract infection. The patient is being treated with vancomycin and cefepime. Urine with K lebsiella pneumonia, sensitive to cefepime. The patient is improving. Continue current treatment. No other recommendation. Thrombocytopenia, continue current recommendation total of 2 weeks. We tammy l follow the patient as needed. Thank you Dr. Malagon for consult. NF/MODL Voice ID: [id number] Report ID: [id number]
[2024-07-30 07:13] LABS: BUN Blood Urea Nitrogen 57 mg/dL (7-18); Bicarbonate 24 mEq/L (21-32); Glomerular Filtration Rate 43 ml/min (=/>90); Phosphorus 3.4 mg/dL (2.5-4.9); Sodium Level 137 mEq/L (136-145)
[2024-07-30 07:16] LABS: Albumin < 0.9 g/dL (3.4-5.0)
[2024-07-30 07:18] LABS: Glucose Level 54 mg/dL (74-106)
--- NOTE | 2024-07-30 15:57 | P.PN ---
Subjective Date of Service: 07/30/24 Chief Complaint: Groin Pain Patient has no new complain. He denies any shortness of breath or orthopnea. He reports dyspnea with exertion. Physical Examination - Vital Signs Temperature: 97.3 F Blood Pressure: 106/74 Pulse: 80 Respirations: 16 Pulse Ox (%): 94 - Studies Medications List Reviewed: Yes Assessment And Plan - Plan Physical examination General: Alert and oriented x3, NAD, HEENT: Anicteric sclera Neck: Supple, no elevated JVD Heart: Heart sounds 1 and 2 normal, regular rhythm, normal rate, no pedal edema Lungs: Clear to auscultation bilaterally, adequate breath sounds bilaterally, no rhonchi or crackles. Abdomen: Soft, nondistended, nontender, normal bowel sounds. Genitourinary: Scrotal edema and erythema significantly improved. Extremities: No tenderness, no deformity Skin: Normal skin turgor, erythema-perineal area and involving the scrotum. Neuro: No focal motor deficit. Normal speech. Psychiatry: Normal mood, no agitation. 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%) Macerated skin b/l toes Pelvic/Scrotal cellulitis Dermatomycosis Left epididymitis UTI TANG on CKD3 Metabolic acidosis NIDDM2 Hx CAD, multivessel s/p PCI; h/o transmural scar h/o polymorphic VT and then vfib s/p life vest shock 11/2022, h/o VT cardiac arrest 09/2022, s/p shore/St yecenia dual chamber AICD 08/2023 Hx colon/cecal cancer, Stage II; s/p ex-lap, right hemicolectomy, ileo-colic anastomosis, diverting loop ileostomy on 03/28/23 with subsequent ileostomy closure 04/25/24 Assessment and plan Pelvic/Scrotal cellulitis Dermatomycosis Left epididymitis UTI scrotal u/s (07/19): Mild left epididymitis. Urine cx (07/20): Klebsiella Pneumoniae Patient was previously on empiric cefepime / vanc (07/20-07/23) Antibiotics transitioned to oral Augmentin. Patient to complete 10 days of treatment. Patient completed 5 days of Diflucan for dermatomycosis Continue miconazole cream Analgesics as needed. CAD Acute on chronic systolic heart failure Status post recent PCI echo (07/23): 10% EF, severe global hypokinesis, diastolic dysfunction, elevated filling pressure, moderate pulm HTN prior echo (04/16/24): 20-24% EF, global hypokinesis, grade 2 diastolic dysfunction, RV systolic fxn severely depressed. moderate MR/TR s/p thoracentesis (06/10): 1.5L fluid removed. repeat CXR (07/24): stable mod-large R pleural effusion. +central interstitial prominence suggesting edema. Cardiology and nephrology are following Transition IV Lasix to oral Scrotal edema almost resolved Continue midodrine for borderline hypotension continue home aspirin, statin Resume home dose aspirin and Lipitor Patient's functional status is improving slowly. Continue PT. Diabetes Insulin sliding scale Accu-Chek before every meal and at bedtime. TANG on CKD3 Metabolic acidosis Metabolic acidosis resolved. Nephrology to evaluate the need for bicarb Serum creatinine has been stable. Transition to oral Lasix. Nephrology is following. Hx colon/cecal cancer, Stage II; s/p ex-lap, right hemicolectomy, ileo-colic anastomosis, diverting loop ileostomy on 03/28/23 with subsequent ileostomy closure 04/25/24 continue supportive care DVT prophylaxis: Heparin SQ Advanced directive full code Disposition: Social service is assisting with arrangement for skilled rehab placement.
[2024-07-30] MEDS: FUROSEMIDE 40 MG TABLET PO SCH (16:27)
[2024-07-30] MEDS: ACETAMINOPHEN 325 MG TABLET PO PRN (20:43)
--- NOTE | 2024-07-30 21:27 | P.PN ---
Date of Service: 07/30/24 Vital Signs Temp Pulse Resp BP Pulse Ox 97.3 F 80 16 106/74 94 07/30/24 20:43 07/30/24 16:04 07/30/24 16:04 07/30/24 16:04 07/30/24 16:04 Medications Acetaminophen (Acetaminophen 325 Mg Tablet) 650 mg PO Q4HP PRN PRN Reason: Pain scale 2-4 (Mild) Last Admin: 07/30/24 20:43 Dose: 650 mg Amoxicillin/Clavulanate Potassium (Amox/K Clav 500 Mg Tab) 500 mg PO BID [facility] Stop: 08/02/24 09:01 Last Admin: 07/30/24 20:39 Dose: 500 mg Aspirin (Aspirin Ec 81 Mg Tab) 81 mg PO DAILY [facility] Last Admin: 07/30/24 08:44 Dose: 81 mg Atorvastatin Calcium (Atorvastatin 20 Mg Tab) 20 mg PO DAILY [facility] Last Admin: 07/30/24 08:44 Dose: 20 mg Enteral Nutritional Formula (Glucerna Shake 237 Ml Can) 237 ml PO BID [facility] Last Admin: 07/30/24 20:39 Dose: 237 ml Furosemide (Furosemide 40 Mg Tablet) 40 mg PO BIDL [facility] Last Admin: 07/30/24 16:27 Dose: Not Given Glucagon (Glucagon 1 Mg/Vial) 1 mg IM 1X PRN PRN Reason: HYPOGLYCEMIA Heparin Sodium (Porcine) (Heparin 5000 Unit/Ml 1 Ml Vial) 5,000 unit SQ Q8HR [facility] Last Admin: 07/30/24 16:13 Dose: 5,000 unit Dextrose (Dextrose 10% Water Iv Soln.) 125 mls @ 0 mls/hr IV PRN PRN; Protocol PRN Reason: HYPOGLYCEMIA Insulin Human Regular (Insulin Regular (Human) 100 Unit/Ml) 0 unit SQ ACHS [facility]; Protocol Last Admin: 07/30/24 20:39 Dose: Not Given Metoprolol Succinate (Metoprolol Xl 25 Mg Tab) 25 mg PO DAILY [facility] Last Admin: 07/30/24 08:43 Dose: 25 mg Miconazole Nitrate (Miconazole 2% Topical 15 Gm) 1 appl TOP BID [facility] Last Admin: 07/30/24 20:39 Dose: 1 appl Midodrine (Midodrine Hcl 5 Mg Tablet) 5 mg PO TID [facility] Last Admin: 07/30/24 20:39 Dose: 5 mg Ondansetron HCl (Ondansetron 4 Mg/2 Ml Vial) 4 mg IV Q6HP PRN PRN Reason: NAUSEA / VOMITING Last Admin: 07/30/24 13:22 Dose: 4 mg Assessment/ Plan: Nephrology Progress Note No Dyspnea. +CHAVARRIA No Chest Pain Feeling better No Acute Events Overnight Vital Signs, Medications, Blood Work, and Imaging reviewed in the chart General: Oriented x3, Cooperative HEENT: Atraumatic Neck: Supple Respiratory: Normal air movement Cardiovascular: Regular rate/rhythm, Edema Gastrointestinal: Non-distended, Tenderness Musculoskeletal: No clubbing, No contractures Integumentary: No rashes, No cyanosis Neurological: Normal speech Blood work reviewed in the chart. Imagings Data: Exam Date: 07/19/24 Reason for Exam: ABDOMINAL DISTENTION Report Status: Signed Procedure: Chest Single View History: Abdominal pain Comparison: May 2024 Moderate right pleural effusion with right basilar atelectasis Mild bilateral interstitial lung opacities Heart is enlarged. Pacemaker leads in place IMPRESSION: Moderate right pleural effusion Mild bilateral interstitial pulmonary opacities may indicate mild interstitial pulmonary edema Exam Date: 07/19/24 Reason for Exam: PAIN Report Status: Signed EXAMINATION: ULTRASOUND DUPLEX OF SCROTUM AND TESTICLES CLINICAL INDICATION: Testicular pain TECHNIQUE: Duplex scan of the scrotal contents was performed including real-time color and spectral Doppler ultrasonography with arterial inflow and venous outflow. COMPARISON: No prior exam. FINDINGS: Right testicle measures 4.4 x 2.8 x 3.2 cm. Mildly inhomogeneous echotexture. Right epididymis not visualized. Left testicle measures 4 x 2.3 x 3.2 cm. Mildly homogeneous echotexture. Mildly increased flow left epididymis. Each testicle appears to demonstrate diminished blood flow. IMPRESSION: Mild left epididymitis Each testicle appears to demonstrate diminished blood flow. I suspect this is due to technical factors rather than pathology. A bilateral testicular torsion is doubtful. If the patient has clinical symptoms to suggest this then a follow-up testicular ultrasound would be r ecommended for reevaluation Conclusions/Impression: Stage I TANG in the setting of relative hypotension, diuresis and NSAIDs prior to admission CKD III with Proteinuria -No NSAIDs NAG Metabolic Acidosis -Continue oral bicarb Orthostatic Hypotension -Continue Midodrine -Cardiology following Systolic Diastolic CHF, A/C Ischemic CMP with Global Hypokinesis LVEF 10% followed by Dr. Interiano at [facility] Moderate Pulmonary HTN -Continue Metoprolol -Change Lasix 40mg BID DM II with CKD -RISS Hypoalbuminemia -Protein supplementation as tolerated -IV Albumin prn Acute Cystitis with Hematuria -Continue Abx Pelvic/ Scrotal Cellulitis -Continue Abx Hospitalist note reviewed Case reviewed with Dr. Malagon
--- NOTE | 2024-07-30 21:42 | PN ---
Subjective: Patient lying in bed, not in any acute distress. No new complaints. Objective: Vital signs: Reviewed. Lungs: Basal crackles. Heart: S1, S2. Regular. Abdomen: Soft, nontender. Bowel sounds present. Extremities: Trace edema. Laboratory Data: Labs reviewed. The patient currently on Augmentin. Assessment And Plan: Acute epididymitis of the left side and urinary tract infection. Continue supp ortive care and continue current treatment. We will follow the patient as needed. NF/MODL Voice ID: [id number] Report ID: [id number]
[2024-07-30] MEDS ORDERED: MORPHINE 4 MG/ML SYR IV PRN (22:46)
[2024-07-30] MEDS: MORPHINE 2 MG/ML SYR IV PRN (23:09)
[2024-07-31 06:04] LABS: Albumin 2.7 g/dL (3.4-5.0); Anion Gap 9.4 mEq/L (5.0-15.0); Phosphorus 4.6 mg/dL (2.5-4.9); Potassium 4.4 mEq/L (3.5-5.1)
[2024-07-31] MEDS: MAGNES/ALUMIN/SIMET 30ML UCUP PO ONE (09:36)
--- NOTE | 2024-07-31 16:50 | P.PN ---
Subjective Date of Service: 07/31/24 Chief Complaint: Groin Pain Patient was complaining of nausea this morning. No vomiting. No reported shortness of breath or orthopnea. He reports dyspnea with exertion. Physical Examination - Vital Signs Temperature: 97.1 F Blood Pressure: 114/88 Pulse: 76 Respirations: 20 Pulse Ox (%): 100 - Studies Medications List Reviewed: Yes Assessment And Plan - Plan Physical examination General: Alert and oriented x3, NAD, HEENT: Anicteric sclera Neck: Supple, no elevated JVD Heart: Heart sounds 1 and 2 normal, regular rhythm, normal rate, no pedal edema Lungs: Clear to auscultation bilaterally, adequate breath sounds bilaterally, no rhonchi or crackles. Abdomen: Soft, nondistended, nontender, normal bowel sounds. Genitourinary: Scrotal edema and erythema significantly improved. Extremities: No tenderness, no deformity Skin: Normal skin turgor, erythema-perineal area and involving the scrotum. Neuro: No focal motor deficit. Normal speech. Psychiatry: Normal mood, no agitation. 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%) Macerated skin b/l toes Pelvic/Scrotal cellulitis Dermatomycosis Left epididymitis UTI ATNG on CKD3 Metabolic acidosis NIDDM2 Hx CAD, multivessel s/p PCI; h/o transmural scar h/o polymorphic VT and then vfib s/p life vest shock 11/2022, h/o VT cardiac arrest 09/2022, s/p shore/St yecenia dual chamber AICD 08/2023 Hx colon/cecal cancer, Stage II; s/p ex-lap, right hemicolectomy, ileo-colic anastomosis, diverting loop ileostomy on 03/28/23 with subsequent ileostomy closure 04/25/24 Assessment and plan Pelvic/Scrotal cellulitis Dermatomycosis Left epididymitis UTI scrotal u/s (07/19): Mild left epididymitis. Urine cx (07/20): Klebsiella Pneumoniae Patient was previously on empiric cefepime / vanc (07/20-07/23) Antibiotics transitioned to oral Augmentin. Patient to complete 10 days of treatment. Patient completed 5 days of Diflucan for dermatomycosis Continue miconazole cream Analgesics as needed. CAD Acute on chronic systolic heart failure Status post recent PCI echo (07/23): 10% EF, severe global hypokinesis, diastolic dysfunction, elevated filling pressure, moderate pulm HTN prior echo (04/16/24): 20-24% EF, global hypokinesis, grade 2 diastolic dysfunction, RV systolic fxn severely depressed. moderate MR/TR s/p thoracentesis (06/10): 1.5L fluid removed. repeat CXR (07/24): stable mod-large R pleural effusion. +central interstitial prominence suggesting edema. Cardiology and nephrology are following Status post IV Lasix. Patient is diuresing with oral Lasix. Scrotal edema almost resolved Continue midodrine for borderline hypotension continue home aspirin, statin Resume home dose aspirin and Lipitor Patient's functional status is improving slowly. Continue PT. Diabetes Insulin sliding scale Accu-Chek before every meal and at bedtime. TANG on CKD3 Metabolic acidosis Metabolic acidosis resolved. Nephrology to evaluate the need for bicarb Serum creatinine has been stable. Transition to oral Lasix. Nephrology is following. Hx colon/cecal cancer, Stage II; s/p ex-lap, right hemicolectomy, ileo-colic anastomosis, diverting loop ileostomy on 03/28/23 with subsequent ileostomy closure 04/25/24 continue supportive care Nausea resolved. Will obtain KUB if it recurs. DVT prophylaxis: Heparin SQ Advanced directive full code Disposition: Social service is assisting with arrangement for skilled rehab placement.
--- NOTE | 2024-07-31 23:20 | P.PN ---
Date of Service: 07/31/24 Vital Signs Temp Pulse Resp BP Pulse Ox 96.9 F 65 16 123/91 H 96 07/31/24 20:00 07/31/24 20:00 07/31/24 20:00 07/31/24 20:00 07/31/24 20:00 Medications Acetaminophen (Acetaminophen 325 Mg Tablet) 650 mg PO Q4HP PRN PRN Reason: Pain scale 2-4 (Mild) Last Admin: 07/31/24 11:28 Dose: 650 mg Amoxicillin/Clavulanate Potassium (Amox/K Clav 500 Mg Tab) 500 mg PO BID [facility] Stop: 08/02/24 09:01 Last Admin: 07/31/24 20:56 Dose: 500 mg Aspirin (Aspirin Ec 81 Mg Tab) 81 mg PO DAILY [facility] Last Admin: 07/31/24 10:20 Dose: 81 mg Atorvastatin Calcium (Atorvastatin 20 Mg Tab) 20 mg PO DAILY [facility] Last Admin: 07/31/24 10:20 Dose: 20 mg Enteral Nutritional Formula (Glucerna Shake 237 Ml Can) 237 ml PO BID [facility] Last Admin: 07/31/24 20:57 Dose: 237 ml Furosemide (Furosemide 40 Mg Tablet) 40 mg PO BIDL [facility] Last Admin: 07/31/24 16:40 Dose: 40 mg Glucagon (Glucagon 1 Mg/Vial) 1 mg IM 1X PRN PRN Reason: HYPOGLYCEMIA Dextrose (Dextrose 10% Water Iv Soln.) 125 mls @ 0 mls/hr IV PRN PRN; Protocol PRN Reason: HYPOGLYCEMIA Insulin Human Regular (Insulin Regular (Human) 100 Unit/Ml) 0 unit SQ ACHS [facility]; Protocol Last Admin: 07/31/24 20:56 Dose: Not Given Metoprolol Succinate (Metoprolol Xl 25 Mg Tab) 25 mg PO DAILY [facility] Last Admin: 07/31/24 09:00 Dose: Not Given Midodrine (Midodrine Hcl 5 Mg Tablet) 5 mg PO TID [facility] Last Admin: 07/31/24 20:56 Dose: 5 mg Morphine Sulfate (Morphine 2 Mg/Ml Syr) 2 mg IV Q4H PRN PRN Reason: Pain scale 8-10 (Severe) Last Admin: 07/30/24 23:09 Dose: 2 mg Ondansetron HCl (Ondansetron 4 Mg/2 Ml Vial) 4 mg IV Q6HP PRN PRN Reason: NAUSEA / VOMITING Last Admin: 07/31/24 07:33 Dose: 4 mg Assessment/ Plan: Nephrology Progress Note No Dyspnea. +CHAVARRIA No Chest Pain Malaise and fatigue this morning No Acute Events Overnight Vital Signs, Medications, Blood Work, and Imaging reviewed in the chart General: Oriented x3, Cooperative HEENT: Atraumatic Neck: Supple Respiratory: Normal air movement Cardiovascular: Regular rate/rhythm, Edema Gastrointestinal: Non-distended, Tenderness Musculoskeletal: No clubbing, No contractures Integumentary: No rashes, No cyanosis Neurological: Normal speech Blood work reviewed in the chart. Imagings Data: Exam Date: 07/19/24 Reason for Exam: ABDOMINAL DISTENTION Report Status: Signed Procedure: Chest Single View History: Abdominal pain Comparison: May 2024 Moderate right pleural effusion with right basilar atelectasis Mild bilateral interstitial lung opacities Heart is enlarged. Pacemaker leads in place IMPRESSION: Moderate right pleural effusion Mild bilateral interstitial pulmonary opacities may indicate mild interstitial pulmonary edema Exam Date: 07/19/24 Reason for Exam: PAIN Report Status: Signed EXAMINATION: ULTRASOUND DUPLEX OF SCROTUM AND TESTICLES CLINICAL INDICATION: Testicular pain TECHNIQUE: Duplex scan of the scrotal contents was performed including real-time color and spectral Doppler ultrasonography with arterial inflow and venous outflow. COMPARISON: No prior exam. FINDINGS: Right testicle measures 4.4 x 2.8 x 3.2 cm. Mildly inhomogeneous echotexture. Right epididymis not visualized. Left testicle measures 4 x 2.3 x 3.2 cm. Mildly homogeneous echotexture. Mildly increased flow left epididymis. Each testicle appears to demonstrate diminished blood flow. IMPRESSION: Mild left epididymitis Each testicle appears to demonstrate diminished blood flow. I suspect this is due to technical factors rather than pathology. A bilateral testicular torsion is doubtful. If the patient has clinical symptoms to suggest this then a follow-up testicular ultrasound would be recommended for reevaluation Conclusions/Impression: Stage I TANG in the setting of relative hypotension, diuresis and NSAIDs prior to admission CKD III with Proteinuria -No NSAIDs NAG Metabolic Acidosis -Continue oral bicarb Orthostatic Hypotension -Continue Midodrine -Cardiology following Systolic Diastolic CHF, A/C Ischemic CMP with Global Hypokinesis LVEF 10% followed by Dr. Interiano at [facility] Moderate Pulmonary HTN -Continue Metoprolol -Continue Lasix 40mg BID DM II with CKD -RISS Hypoalbuminemia -Protein supplementation as tolerated -IV Albumin prn Acute Cystitis with Hematuria -Continue Abx Pelvic/ Scrotal Cellulitis -Continue Abx Hospitalist note reviewed Case reviewed with Dr. Malagon
[2024-08-01 06:43] LABS: Absolute Basophils 0.1 K/uL (0-0.5); Absolute Eosinophils 0.2 K/uL (0-0.5); Absolute Monocytes 0.8 K/uL (0.1-1.3); Absolute Neutrophil 4.2 K/uL (1.8-8.0); Basophils % 1.9 % (0-1.3); Eosinophils % 3.1 % (0-4.4); Hematocrit 45.6 % (39.6-49.0); Hemoglobin 14.7 g/dL (13.6-17.9); Lymphocytes % 27.1 % (15.3-44.8); MCH 27.8 pg (27.0-35.0); MCHC 32.3 g/dL (32.0-36.0); MCV 86.1 fL (80-100); MPV 10.8 fL (7.6-11.3); Monocytes % 10.7 % (3.3-12.3); Neutrophils % 57.2 % (41.7-73.7); Nucleated RBC Absolute Count 0.1 (0-0); Platelets 134 thou/uL (152-406); Red Cell Distribution Width 17.8 % (12.1-15.2)
[2024-08-01 06:57] LABS: Albumin 2.6 g/dL (3.4-5.0); Anion Gap 10.8 mEq/L (5.0-15.0); Phosphorus 4.8 mg/dL (2.5-4.9); Potassium 4.8 mEq/L (3.5-5.1)
--- NOTE | 2024-08-01 09:07 | P.DS ---
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 Multifactorial etiology secondary to pelvic/scrotal cellulitis complicated by Dermatomycosis and Left epididymitis seen on ultrasound. He received 3 days of empiric cefepime / vancomycin and had improvement of his symptoms. Antiobiotics were deescalated to oral augmentin 07/23 and patient demonstrated continued improvement. Scrotal/groin erythema mostly resolved. Patient completed 5 days of diflucan and has been on a topical miconazole since 07/20. During his hospitalization he was found to have a UTI. Urine culture grew Klebsiella Pneumoniae (resistant to cipro/ampicillin). He has been afebrile without leukocytosis throughout hospitalization. On admission, he was also noted to have moderate amount of lower extremity edema. Chest xray noted moderate right pleural effusion with right basilar atelectasis and mild bilateral interstitial pulmonary opacities likely pulm edema. Echo this hospitalization with 10% EF, severe global hypokinesis, diastolic dysfunction, elevated filling pressure, moderate pulmonary hypertension. (previously ~20-24% back in March per OSH records). Cardiology and nephrology were consulted. He was started on 20 mg IV lasix q6h and midodrine. Patient's fluid retention eventually improved with diuresis with renal function being relatively stable. Patient's scrotal swelling and lower extremity edema have resolved IV Lasix was transitioned to oral Lasix. Patient was evaluated by therapy due to decreased mobility. Patient ambulated with assistance. Patient will benefit from skilled rehab to improve his functional Capacity. Vital Signs/Physical Exam: Temp Pulse Resp BP Pulse Ox 96.6 F L 80 16 121/93 H 93 08/01/24 04:00 08/01/24 04:00 08/01/24 04:00 08/01/24 04:00 08/01/24 04:00 General: Alert, In no apparent distress HEENT: Mucous membr. moist/pink Neck: Supple, JVD not distended Respiratory: Clear to auscultation bilaterally, Normal air movement Cardiovascular: No edema, Regular rate/rhythm, Normal S1 S2 Gastrointestinal: Normal bowel sounds, Soft and benign, Non-distended Musculoskeletal: No swelling Integumentary: No cyanosis Neurological: Other (No focal motor deficit) Laboratory Data at Discharge: WBC 7.30 thou/uL (4.3-10.9) 08/01/24 06:11 Hgb 14.7 g/dL (13.6-17.9) 08/01/24 06:11 Hct 45.6 % (39.6-49.0) 08/01/24 06:11 Plt Count 134 thou/uL (152-406) L 08/01/24 06:11 PT 16.0 SECONDS (9.4-12.5) H 07/19/24 21:52 INR 1.44 07/19/24 21:52 Sodium 134 mEq/L (136-145) L 08/01/24 06:11 Potassium 4.8 mEq/L (3.5-5.1) 08/01/24 06:11 BUN 66 mg/dL (7-18) H 08/01/24 06:11 Creatinine 2.22 mg/dL (0.70-1.30) H 08/01/24 06:11 Glucose 109 mg/dL (74-106) H 08/01/24 06:11 Uric Acid 7.8 mg/dL (3.5-7.2) H 07/25/24 04:58 Phosphorus 4.8 mg/dL (2.5-4.9) 08/01/24 06:11 Magnesium 1.9 mg/dL (1.6-2.4) 07/29/24 17:35 Total Bilirubin 0.7 mg/dL (0.2-1.0) 07/29/24 06:28 AST 13 U/L (15-37) L 07/29/24 06:28 ALT 19 U/L (16-61) 07/29/24 06:28 Alkaline Phosphatase 179 U/L (45-117) H 07/29/24 06:28 Home Medications: Aspirin [Aspirin EC 81 MG] 1 tab PO DAILY 09/28/22 Atorvastatin Calcium 20 mg PO DAILY 09/28/22 Metoprolol Succinate 1 tab PO DAILY 07/20/24 Furosemide [Lasix*] 40 mg PO BIDL tab 08/01/24 Glucerna Shake [Glucerna*] 237 ml PO BID can 08/01/24 Midodrine HCl [Proamatine*] 5 mg PO TID tab 08/01/24 Physician Discharge Instructions: Physician discharge instructions: Patient initially presented with 3 days of left groin/testicle pain, swelling and erythema. Multifactorial etiology secondary to pelvic/scrotal cellulitis complicated by Dermatomycosis and Left epididymitis seen on ultrasound. He received 3 days of empiric cefepime / vancomycin and had improvement of his symptoms. Antiobiotics were deescalated to oral augmentin 07/23 and patient demonstrated continued improvement. Scrotal/groin erythema mostly resolved. Patient completed 5 days of diflucan and has been on a topical miconazole since 07/20. During his hospitalization he was found to have a UTI. Urine culture grew Klebsiella Pneumoniae (resistant to cipro/ampicillin). He has been afebrile without leukocytosis throughout hospitalization. On admission, he was also noted to have moderate amount of lower extremity edema. Chest xray noted moderate right pleural effusion with right basilar atelectasis and mild bilateral interstitial pulmonary opacities likely pulm edema. Echo this hospitalization with 10% EF, severe global hypokinesis, diastolic dysfunction, elevated filling pressure, moderate pulmonary hypertension. (previously ~20-24% back in March per OSH records). Cardiology and nephrology were consulted. He was started on 20 mg IV lasix q6h and midodrine but had minimal improvement. Creatinine was 1.62 on admission and has been slowly worsening throughout hospitalization. Suspect multifactorial etiology secondary to CRS / relative hypotension / diuresis. Creatinine on 07/25: 2.24 Initiated transfer to tertiary level of care facility 07/25 after discussion with specialists given his increased difficulty diuresing with low BP and worsening renal function, anasarca. 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 Diet: ADA Activity: Fall precautions Followup: NONE,NONE [Primary Care Provider] - Time spent managing pt's care (in minutes): 39
[2024-08-01 10:55] VITALS: O2SAT 93
[2024-08-01 16:09] VITALS: BP 121/87; TEMP 97.1
--- NOTE | 2024-08-01 16:39 | EKG ---
Test Date: 2024-07-30 Test Time: 22:23:23 Handkerchief Folder: TAMIKA MEASUREMENT RESULTS: Intervals: Rate: 78 NV: 166 QRSD: 156 QT: 448 QTc: 510 [place]: P: 33 NV: 166 QRS: 182 T: -2 INTERPRETIVE STATEMENTS: Normal sinus rhythm Right bundle branch block Possible Anteroseptal infarct, age undetermined Abnormal ECG Compared to ECG 07/19/2024 22:06:51 Myocardial infarct finding now present Electronically Signed On 08-01-24 16:33:50 CDT by Hector Kirkland
== END 2024-08-01 13:10 | DRG 602 ==
LOC: ER 20:01 → ERHOLD 23:28 → 4TH 07-20 00:42
PROVIDERS: ADMIT Family Medicine; ATTEND Internal Medicine
DX: L03.314 Cellulitis of groin (principal); E43 Unspecified severe protein-calorie malnutrition; I50.43 Acute on chronic combined systolic (congestive) and diastolic (congestive) heart failure; B37.89 Other sites of candidiasis; I13.0 Hypertensive heart and chronic kidney disease with heart failure and stage 1 through stage 4 chronic kidney disease, or unspecified chronic kidney disease; N17.9 Acute kidney failure, unspecified; E87.20 Acidosis, unspecified; N30.01 Acute cystitis with hematuria; Z16.11 Resistance to penicillins; N18.30 Chronic kidney disease, stage 3 unspecified; E11.22 Type 2 diabetes mellitus with diabetic chronic kidney disease; E11.65 Type 2 diabetes mellitus with hyperglycemia; E66.9 Obesity, unspecified; I25.5 Ischemic cardiomyopathy; I95.1 Orthostatic hypotension; N50.89 Other specified disorders of the male genital organs; N45.1 Epididymitis; E88.09 Other disorders of plasma-protein metabolism, not elsewhere classified; I27.20 Pulmonary hypertension, unspecified; I25.10 Atherosclerotic heart disease of native coronary artery without angina pectoris; I25.2 Old myocardial infarction; B96.1 Klebsiella pneumoniae [K. pneumoniae] as the cause of diseases classified elsewhere; B36.9 Superficial mycosis, unspecified; Z93.2 Ileostomy status; Z68.21 Body mass index [BMI] 21.0-21.9, adult; Z79.82 Long term (current) use of aspirin; Z90.49 Acquired absence of other specified parts of digestive tract; Z79.899 Other long term (current) drug therapy; Z87.891 Personal history of nicotine dependence; Z95.810 Presence of automatic (implantable) cardiac defibrillator; Z85.038 Personal history of other malignant neoplasm of large intestine
CPT/HCPCS: 36415; 71045; 76870; 80048; 80053; 80069; 80076; 80202; 81001; 82435; 82533; 82570; 82947; 83735; 83880; 84100; 84132; 84156; 84300; 84484; 84550; 85025; 85027; 85610; 87077; 87086; 87088; 87186; 93005; 93306; 94760; 96365; 96375; 97110; 97112; 97116; 97161; 97530; 99285; J0295; J0692; J1644; J1650; J1940; J2270; J2405; J3475; J7030; J7050; P9045

== ENCOUNTER 2024-08-03 09:53 | Inpatient (IN) | payer OTHER ==
--- NOTE | 2024-08-03 11:18 | P.HP ---
Certification for Inpatient Patient admitted to: Inpatient With expected LOS: >2 Midnights Patient will require the following post-hospital care: None Practitioner: I am a practitioner with admitting privileges, knowledge of patient current condition, hospital course, and medical plan of care. Services: Services provided to patient in accordance with Admission requirements found in Title 42 Section 412.3 of the Code of Federal Regulations Patient History Date of Service: 08/03/24 Allergies No Known Allergies Allergy (Verified 07/20/24 02:30) Home Medications: Aspirin [Aspirin EC 81 MG] 1 tab PO DAILY 09/28/22 Atorvastatin Calcium 20 mg PO DAILY 09/28/22 Metoprolol Succinate 1 tab PO DAILY 07/20/24 Midodrine HCl [Proamatine*] 5 mg PO TID tab 08/01/24 Furosemide [Lasix*] 40 mg PO BID 08/03/24 Loperamide [Imodium*] 1 cap PO Q4H PRN 08/03/24 - Past Medical/Surgical History Has patient received pneumonia vaccine in the past: No Diabetic: Yes -: HTN -: Systolic Diastolic CHF LVEF 10% -: Moderate Pulmonary HTN -: DM II -: CKD III with Proteinuria (Dr. Leary/ Don) -: CAD/ [place] -: Colon Cancer Stage II -: cardiac stents placement in January -: Bowel Resection -: Ileostomy reversal - Family History Father -: Hypertension, Diabetes - Social History Smoking Status: Former smoker Alcohol use: No CD- Drugs: No Caffeine use: Yes Place of Residence: [facility] Assessment and Plan - Advance Directives Does patient have a Living Will: Yes Does patient have a Durable POA for Healthcare: No
[2024-08-03 11:47] LABS: Absolute Basophils 0.1 K/uL (0-0.5); Absolute Eosinophils 0.2 K/uL (0-0.5); Absolute Lymphocytes (CBC) 2.1 K/uL (0.7-4.9); Absolute Monocytes 1.2 K/uL (0.1-1.3); Absolute Neutrophil 4.4 K/uL (1.8-8.0); Basophils % 1.1 % (0-1.3); Hematocrit 43.9 % (39.6-49.0); Hemoglobin 13.7 g/dL (13.6-17.9); Lymphocytes % 26.4 % (15.3-44.8); MCHC 31.3 g/dL (32.0-36.0); MCV 86.4 fL (80-100); MPV 10.5 fL (7.6-11.3); Monocytes % 14.6 % (3.3-12.3); Neutrophils % 55.9 % (41.7-73.7); Nucleated Red Blood Cells % 0.2 % (0-0); Platelets 158 thou/uL (152-406); RBC Red Blood Cell Count 5.08 M/uL (4.33-5.43); Red Cell Distribution Width 18.1 % (12.1-15.2)
[2024-08-03 12:07] LABS: Albumin 2.7 g/dL (3.4-5.0); Albumin/Globulin Ratio 0.7 (1.1-1.8); Anion Gap 12.5 mEq/L (5.0-15.0); Bilirubin Total 0.8 mg/dL (0.2-1.0); Globulin 3.9 g/dL (2.3-3.5); Magnesium 2.1 mg/dL (1.6-2.4); Phosphorus 4.4 mg/dL (2.5-4.9); Potassium 4.5 mEq/L (3.5-5.1); Protein, Total 6.6 g/dL (6.4-8.2)
[2024-08-03] MEDS ORDERED: ACETAMINOPHEN 500 MG TAB PO PRN (12:18)
[2024-08-03] MEDS ORDERED: ALBUTEROL 2.5 MG/3 ML NEB SOL NEB PRN (12:18)
--- NOTE | 2024-08-03 12:42 | P.HP ---
Certification for Inpatient Patient admitted to: Inpatient With expected LOS: >2 Midnights Practitioner: I am a practitioner with admitting privileges, knowledge of patient current condition, hospital course, and medical plan of care. Services: Services provided to patient in accordance with Admission requirements found in Title 42 Section 412.3 of the Code of Federal Regulations Patient History Date of Service: 08/03/24 Reason for admission: Shortness of breath History of Present Illness: 53-year-old gentleman with a history of systolic heart failure, recent echocardiogram showing EF of 10%, recently admitted for scrotal edema and cellulitis Lower extremities edema and cellulitis, found to have anasarca which was managed with IV Lasix and consultation with nephrology and cardiology consult. Patient was also treated with IV antibiotics. He clinically improved, the cellulitis resolved and anasarca significantly improved. Patient was discharged just to renew for rehab 3 days ago. According to report patient was sent to the emergency department last 24 increasing shortness of breath. He was requiring 2 L of oxygen by nasal cannula at the [facility] ER. Chest x-ray done showed moderate right-sided pleural effusion. Blood work showed creatinine elevated to 2.7 which is above baseline. Vital stable. Patient was transferred here to be admitted for further management. Allergies No Known Allergies Allergy (Verified 07/20/24 02:30) Home Medications: Aspirin [Aspirin EC 81 MG] 1 tab PO DAILY 09/28/22 Atorvastatin Calcium 20 mg PO DAILY 09/28/22 Metoprolol Succinate 1 tab PO DAILY 07/20/24 Midodrine HCl [Proamatine*] 5 mg PO TID tab 08/01/24 Furosemide [Lasix*] 40 mg PO BID 08/03/24 Loperamide [Imodium*] 1 cap PO Q4H PRN 08/03/24 - Past Medical/Surgical History Has patient received pneumonia vaccine in the past: No Diabetic: Yes -: HTN -: Systolic Diastolic CHF LVEF 10% -: Moderate Pulmonary HTN -: DM II -: CKD III with Proteinuria (Dr. Leary/ [place]) -: CAD/ [place] -: Colon Cancer Stage II -: cardiac stents placement in January -: Bowel Resection -: Ileostomy reversal - Family History Father -: Hypertension, Diabetes - Social History Smoking Status: Former smoker Alcohol use: No CD- Drugs: No Caffeine use: Yes Place of Residence: [facility] Review of Systems Other: Patient denied any chest pain, he denied any fever, he denied any headache. He denied any difficulty swallowing, he denied any bleeding. He denied any abdominal pain and diarrhea.. Except as documented, all other systems reviewed and negative. Physical Examination - Vital Signs Temperature: 97.8 F Blood Pressure: 109/82 Pulse: 76 Respirations: 18 Pulse Ox (%): 98 - Physical Exam General: In no apparent distress, Oriented x3, Other (Drowsy but easily arousa ble) HEENT: Atraumatic, Mucous membr. moist/pink, EOMI, Sclerae nonicteric Neck: Supple, JVD not distended Respiratory: Diminished (On the right), Crackles/rales (Bilateral), Other (No rhonchi or wheezes) Cardiovascular: Regular rate/rhythm, Normal S1 S2, Edema (Bilateral lower extremities) Capillary refill: <2 Seconds Gastrointestinal: Normal bowel sounds, Soft and benign, Non-distended, No tenderness Musculoskeletal: Swelling (Bilateral feet), Other (Cold feet) Integumentary: No rashes (Mild erythema bilateral feet), No cyanosis Neurological: Normal speech, Normal strength at 5/5 x4 extr, Cranial nerves 3-12 intact Lymphatics: No axilla or inguinal lymphadenopathy - Studies Laboratory Data (last 24 hrs) 08/03/24 08/03/24 11:30 11:30 WBC 7.90 Hgb 13.7 Hct 43.9 Plt Count 158 Sodium 135 L Potassium 4.5 BUN 70 H Creatinine 2.53 H Glucose 186 H Phosphorus 4.4 Magnesium 2.1 Total Bilirubin 0.8 AST 13 L ALT 16 Alkaline Phosphatase 156 H Assessment and Plan - Problems (Diagnosis) (1) Acute kidney injury Current Visit: Yes Status: Acute (2) Pleural effusion, right Current Visit: Yes Status: Acute (3) Impaired mobility Current Visit: Yes Status: Acute (4) Acute systolic (congestive) heart failure Current Visit: No Status: Acute (5) CAD (coronary artery disease) Current Visit: No Status: Acute - Plan Acute on chronic systolic heart failure Right pleural effusion Admit patient to the medical floor. Start IV Lasix drip with albumin infusion Diagnostic and therapeutic US guided thoracentesis. Cardiology consult. Monitor intake and output. Resume midodrine Low-dose MANUEL inhibitor as patient's blood pressure will tolerate. Monitor renal function. Acute kidney injury IV Lasix drip with albumin infusion. Monitor renal function Nephrology consult. Coronary artery disease Troponin is pending. Continue aspirin and metoprolol Continue Lipitor. Impaired mobility PT consult. DVT prophylaxis: Heparin SQ Advanced directive: Full code - Advance Directives Does patient have a Living Will: Yes Does patient have a Durable POA for Healthcare: No
[2024-08-03] MEDS: ALBUMIN HUMAN 25% 12.5 GM, FUROSEMIDE 100 MG in NA CHLORIDE 0.9% 40 ML IV SCH (12:53)
[2024-08-03] MEDS: MIDODRINE HCL 5 MG TABLET PO SCH (13:49)
[2024-08-03 17:00] LABS: Specific Gravity 1.015 (1.005-1.030); Sqamous Epithelial <5 /HPF (None Seen); Urine Bacteria <20 /HPF (<20); Urine Bilirubin NEGATIVE (Negative); Urine Blood Negative (Negative); Urine Clarity Extremely Turbid (Clear); Urine Color Yellow (Yellow); Urine Culture Reflex Order REFLEXED; Urine Glucose NEGATIVE (Negative); Urine Ketones NEGATIVE (Negative); Urine Microscopic Reflex YN ORDER UMIC; Urine Mucus Slight /HPF (None Seen); Urine Nitrite NEGATIVE (Negative); Urine Protein 1+ (Negative); Urine RBC 21-50 /HPF (None Seen); Urine Urobilinogen Normal (Normal); Urine WBC 20-50 /HPF (<5)
[2024-08-03] MEDS: HEPARIN 5000 UNIT/ML 1 ML VIAL SQ SCH (17:03)
[2024-08-03] MEDS: ATORVASTATIN 20 MG TAB PO SCH (20:50)
[2024-08-04] MEDS: ONDANSETRON 4 MG/2 ML VIAL IV PRN (04:57)
[2024-08-04 07:12] LABS: Absolute Basophils 0.1 K/uL (0-0.5); Absolute Eosinophils 0.2 K/uL (0-0.5); Absolute Lymphocytes (CBC) 1.9 K/uL (0.7-4.9); Absolute Monocytes 0.8 K/uL (0.1-1.3); Absolute Neutrophil 3.1 K/uL (1.8-8.0); Basophils % 2.2 % (0-1.3); Hematocrit 42.8 % (39.6-49.0); Hemoglobin 13.4 g/dL (13.6-17.9); Lymphocytes % 30.5 % (15.3-44.8); MCH 27.1 pg (27.0-35.0); MCHC 31.3 g/dL (32.0-36.0); MCV 86.4 fL (80-100); MPV 10.9 fL (7.6-11.3); Monocytes % 12.6 % (3.3-12.3); Neutrophils % 50.7 % (41.7-73.7); Nucleated Red Blood Cells % 0.1 % (0-0); Platelets 125 thou/uL (152-406); RBC Red Blood Cell Count 4.95 M/uL (4.33-5.43); Red Cell Distribution Width 17.7 % (12.1-15.2)
[2024-08-04 07:33] LABS: Albumin 3.2 g/dL (3.4-5.0); Albumin/Globulin Ratio 0.9 (1.1-1.8); Alkaline Phosphatase 125 U/L (45-117); Anion Gap 10.1 mEq/L (5.0-15.0); BUN Blood Urea Nitrogen 69 mg/dL (7-18); Bicarbonate 26 mEq/L (21-32); Bilirubin Total 0.9 mg/dL (0.2-1.0); Globulin 3.4 g/dL (2.3-3.5); Glomerular Filtration Rate 32 ml/min (=/>90); Glucose Level 119 mg/dL (74-106); Magnesium 2.1 mg/dL (1.6-2.4); Phosphorus 4.3 mg/dL (2.5-4.9); Potassium 4.1 mEq/L (3.5-5.1); Protein, Total 6.6 g/dL (6.4-8.2); Sodium Level 136 mEq/L (136-145)
[2024-08-04 07:37] LABS: ALT/SGPT < 14 U/L (16-61); AST/SGOT < 10 U/L (15-37)
[2024-08-04] MEDS: METOPROLOL XL 25 MG TAB PO SCH (10:02)
[2024-08-04] MEDS: ASPIRIN EC 81 MG TAB PO SCH (10:02)
--- NOTE | 2024-08-04 10:08 | RAD REPORT ---
PROCEDURE: ULTRASOUND GUIDED THORACENTESIS CLINICAL INDICATION: [facility] MAIN Right pleural effusion PROCEDURE DETAILS: Consent: Informed consent for the procedure including risks, benefits and alternatives was obtained a nd time-out was performed prior to the procedure. Preparation: The site was prepared and draped using maximal sterile barrier technique including cutan eous antisepsis. Procedure: Initial limited thoracic ultrasound was performed and a large pleural effusion was seen. A safe window for thoracentesis was identified with ultrasound to cameron a suitable access site. Local anesthesia was administered. The pleural cavity was accessed, and fluid return confirmed position. A 5F Yueh catheter was placed and fluid was drained. The catheter was removed, and a sterile bandage was applied. . Estimated blood loss: Less than 10 mL. IMPRESSION: RIGHT ultrasound guided thoracentesis, yielding 2000 mL of straw-colored fluid. Additional procedure(s): Limited thoracic ultrasound. PLAN: Aspirated fluid was sent for analysis.
--- NOTE | 2024-08-04 12:12 | P.PN ---
Date of Service: 08/04/24 Vital Signs Temp Pulse Resp BP Pulse Ox 97.5 F 76 17 116/92 H 97 08/04/24 08:00 08/04/24 10:02 08/04/24 08:00 08/04/24 10:02 08/04/24 08:00 Medications Acetaminophen (Acetaminophen 500 Mg Tab) 500 mg PO Q4HP PRN PRN Reason: TEMP > 100' F Albuterol Sulfate (Albuterol 2.5 Mg/3 Ml Neb Daisy) 2.5 mg NEB Q6HP PRN PRN Reason: SHORTNESS OF BREATH Aspirin (Aspirin Ec 81 Mg Tab) 81 mg PO DAILY [facility] Last Admin: 08/04/24 10:02 Dose: 81 mg Atorvastatin Calcium (Atorvastatin 20 Mg Tab) 20 mg PO BEDTIME [facility] Last Admin: 08/03/24 20:50 Dose: 20 mg Heparin Sodium (Porcine) (Heparin 5000 Unit/Ml 1 Ml Vial) 5,000 unit SQ Q8HR [facility] Last Admin: 08/04/24 09:00 Dose: Not Given Albumin Human 12.5 gm/Furosemide 100 mg/ Sodium Chloride 100 mls @ 10 mls/hr IV Q10H [facility] Last Admin: 08/04/24 10:08 Dose: 100 mls Metoprolol Succinate (Metoprolol Xl 25 Mg Tab) 25 mg PO DAILY [facility] Last Admin: 08/04/24 10:02 Dose: 25 mg Midodrine (Midodrine Hcl 5 Mg Tablet) 5 mg PO TID [facility] Last Admin: 08/04/24 10:02 Dose: 5 mg Ondansetron HCl (Ondansetron 4 Mg/2 Ml Vial) 4 mg IV Q6HP PRN PRN Reason: NAUSEA / VOMITING Last Admin: 08/04/24 04:57 Dose: 4 mg Lab Results (last 24 hrs) 08/04/24 06:44: Sodium 136, Potassium 4.1, Chloride 104, Carbon Dioxide 26, Anion Gap 10.1, BUN 69 H, Creatinine 2.36 H, Est GFR (CKD-EPI) 32 L, Glucose 119 H, Calcium 8.7, Phosphorus 4.3, Magnesium 2.1, Total Bilirubin 0.9, AST < 10 L, ALT < 14 L, Alkaline Phosphatase 125 H, Serum Total Protein 6.6, Albumin 3.2 L, Globulin 3.4, Albumin/Globulin Ratio 0.9 L 08/04/24 06:44: WBC 6.10, RBC 4.95, Hgb 13.4 L, Hct 42.8, MCV 86.4, MCH 27.1, MCHC 31.3 L, RDW 17.7 H, Plt Count 125 L, MPV 10.9, Neutrophils % 50.7, Lymphocytes % 30.5, Monocytes % 12.6 H, Eosinophils % 4.0, Basophils % 2.2 H, Absolute Neutrophils 3.1, Absolute Lymphocytes 1.9, Absolute Monocytes 0.8, Absolute Eosinophils 0.2, Absolute Basophils 0.1 08/03/24 15:40: Urine Color Yellow, Urine Clarity Extremely turbid H, Urine pH 5.0, Ur Specific Crane 1.015, Glucose (UA)(Auto) Negative, Urine Ketones Negative, Urine Blood Negative, Urine Nitrite Negative, Urine Bilirubin Negative, Urine Urobilinogen Normal, Ur Leukocyte Esterase 25 H, Urine RBC 21-50 H, Urine WBC 20-50 H, Ur Squamous Epith Cells <5, U Non-Squamous Epi Cells <5, Uric Acid Crystals Many H, Urine Bacteria <20, Hyaline Casts 10-20 H, Urine Mucus Slight, Urine Culture Reflexed Reflexed, Urine Total Protein 1+ H 08/03/24 12:55: Troponin I High Sens 10.6 08/03/24 11:30: Sodium 135 L, Potassium 4.5, Chloride 103, Carbon Dioxide 24, Anion Gap 12.5, BUN 70 H, Creatinine 2.53 H, Est GFR (CKD-EPI) 29 L, Glucose 186 H, Calcium 9.1, Phosphorus 4.4, Magnesium 2.1, Total Bilirubin 0.8, AST 13 L, ALT 16, Alkaline Phosphatase 156 H, Serum Total Protein 6.6, Albumin 2.7 L, Globulin 3.9 H, Albumin/Globulin Ratio 0.7 L Microbiology Results 08/03/24 15:40 Clean Catch Urine [place] Count - Preliminary No growth. 08/03/24 15:40 Clean Catch Urine - Preliminary No growth. Assessment/ Plan: Nephrology Progress Note Improving dyspnea Fatigue and weakness No Chest Pain No Acute Events Overnight Vital Signs, Medications, Blood Work, and Imaging reviewed in the chart NAD. NCAT. MMM. Neck Supple. Normal Respiratory Effort. RRR. Abd ND. No C/C. LE Edema 2-3+. No Rash. AAO. Normal Speech. Diffuse sarcopenia. Assessment & Plan Stage I TANG likely CRS CKD III with Proteinuria -No NSAIDs -Continue diuresis Orthostatic Hypotension -Continue Midodrine Systolic Diastolic CHF, A/C -Continue Lasix gtt with Albumin DM II with CKD -Low sugar diet -RISS prn Hospitalist note reviewed
[2024-08-04 12:15] LABS: Appearance SLT. TURBID (CLEAR); Body Fluid Source PLEURAL; Body Fluid WBC 75 /mm^3; Color of fluid Yellow (COLORLESS)
[2024-08-04 12:37] LABS: Body Fluid Lymphocytes 15 %; Fluid Total Cells Count 100
[2024-08-04] MEDS ORDERED: MORPHINE 2 MG/ML SYR IV PRN (14:26)
--- NOTE | 2024-08-04 14:59 | P.PN ---
Subjective Date of Service: 08/04/24 Chief Complaint: Shortness of breath Status post thoracentesis today, about 2000 mL of straw-colored fluid drained. Patient reports significant improvement in his shortness of breath. Patient has diuresed well with IV Lasix drip. Physical Examination - Vital Signs Temperature: 97.8 F Blood Pressure: 113/86 Pulse: 79 Respirations: 16 Pulse Ox (%): 99 - Physical Exam General: Alert, In no apparent distress, Oriented x3 HEENT: Mucous membr. moist/pink Neck: JVD not distended Respiratory: Clear to auscultation bilaterally, Normal air movement, Crackles/rales (Mild bibasilar Rales) Cardiovascular: Regular rate/rhythm, Normal S1 S2, Edema (Bilateral lower extremity edema) Gastrointestinal: Normal bowel sounds, Soft and benign, Non-distended Musculoskeletal: No erythema, Swelling Integumentary: No cyanosis, Other (Hemosiderin staining bilateral feet) Neurological: Normal speech, Normal strength at 5/5 x4 extr - Studies Laboratory Data (last 24 hrs) 08/04/24 08/04/24 06:44 06:44 WBC 6.10 Hgb 13.4 L Hct 42.8 Plt Count 125 L Sodium 136 Potassium 4.1 BUN 69 H Creatinine 2.36 H Glucose 119 H Phosphorus 4.3 Magnesium 2.1 Total Bilirubin 0.9 AST < 10 L ALT < 14 L Alkaline Phosphatase 125 H Microbiology Data (last 24 hrs): 08/04/24 09:05 Body Fluid - Pleural Fluid Gram Stain - Final Assessment And Plan - Current Problems (Diagnosis) (1) Acute kidney injury Current Visit: Yes Status: Acute (2) Pleural effusion, right Current Visit: Yes Status: Acute (3) Impaired mobility Current Visit: Yes Status: Acute (4) Acute systolic (congestive) heart failure Current Visit: No Status: Acute (5) CAD (coronary artery disease) Current Visit: No Status: Acute - Plan Acute on chronic systolic heart failure Right pleural effusion Status post thoracentesis 08/04. Patient is diuresing well with Lasix drip. Continue IV Lasix drip with albumin infusion Cardiology consulted. Monitor intake and output. Continue midodrine Low-dose MANUEL inhibitor as patient's blood pressure will tolerate. Monitor renal function. Acute kidney injury Nephrology input appreciated IV Lasix drip with albumin infusion. Monitor renal function Coronary artery disease Negative troponin. Continue aspirin and metoprolol Continue Lipitor. Impaired mobility Awaiting PT evaluation. DVT prophylaxis: Heparin SQ Advanced directive: Full code
[2024-08-04] MEDS: HYDROCODONE/APAP 5/325 MG TAB PO PRN (15:15)
[2024-08-05 06:27] LABS: Absolute Basophils 0.1 K/uL (0-0.5); Absolute Eosinophils 0.2 K/uL (0-0.5); Absolute Lymphocytes (CBC) 2.2 K/uL (0.7-4.9); Absolute Neutrophil 4.6 K/uL (1.8-8.0); Basophils % 1.3 % (0-1.3); Eosinophils % 2.6 % (0-4.4); Hematocrit 45.4 % (39.6-49.0); Hemoglobin 14.5 g/dL (13.6-17.9); Lymphocytes % 27.3 % (15.3-44.8); MCH 27.3 pg (27.0-35.0); MCHC 32.1 g/dL (32.0-36.0); MCV 85.2 fL (80-100); MPV 10.2 fL (7.6-11.3); Monocytes % 12.1 % (3.3-12.3); Neutrophils % 56.7 % (41.7-73.7); Nucleated Red Blood Cells % 0.1 % (0-0); Platelets 129 thou/uL (152-406); RBC Red Blood Cell Count 5.33 M/uL (4.33-5.43); Red Cell Distribution Width 17.6 % (12.1-15.2)
[2024-08-05 06:45] LABS: AST/SGOT 12 U/L (15-37); Albumin/Globulin Ratio 0.9 (1.1-1.8); Alkaline Phosphatase 132 U/L (45-117); Anion Gap 11.1 mEq/L (5.0-15.0); BUN Blood Urea Nitrogen 65 mg/dL (7-18); Bicarbonate 26 mEq/L (21-32); Bilirubin Total 1.1 mg/dL (0.2-1.0); Globulin 3.5 g/dL (2.3-3.5); Glomerular Filtration Rate 35 ml/min (=/>90); Glucose Level 122 mg/dL (74-106); Magnesium 1.9 mg/dL (1.6-2.4); Phosphorus 3.9 mg/dL (2.5-4.9); Potassium 4.1 mEq/L (3.5-5.1); Protein, Total 6.5 g/dL (6.4-8.2); Sodium Level 137 mEq/L (136-145)
[2024-08-05 06:46] LABS: ALT/SGPT < 14 U/L (16-61)
--- NOTE | 2024-08-05 07:31 | P.PN ---
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 (HFrEF - 10%) Right pleural effusion s/p thoracentesis (08/04) TANG on CKD3 NIDDM2 Hx CAD, multivessel s/p PCI; h/o transmural scar h/o [id number] VT and then vfib s/p life vest shock 11/2022, h/o [place] cardiac arrest 09/2022, s/p shore/St [place] dual chamber AICD 08/2023 Hx colon/cecal cancer, Stage II; s/p ex-lap, right hemicolectomy, ileo-colic anastomosis, diverting loop ileostomy on 03/28/23 with subsequent ileostomy closure 04/25/24 (Final path: T3 N0, with no indications for adjuvant therapy) Acute on chronic combined systolic & diastolic CHF secondary to ICMP(HFrEF - 10%) Right pleural effusion s/p thoracentesis (08/04) On admission, presents with worsening shortness of breath. Worsened with activity. recently discharged ~3 days ago to SNF. Did okay for 1-2 days but dyspnea worsened and he came back. developed moderate right pleural effusion that was seen on outside CXR at [place] [facility] prior to arrival recent echo (07/23): 10% EF, severe global hypokinesis, diastolic dysfunction, elevated filling pressure, moderate pulm HTN Cardiology and nephrology consulted continue lasix/albumin drip as renal function/BP allows (08/03-) continue midodrine TID Strict I/Os s/p thoracentesis (08/04); had 2L straw colored fluid removed responding well to lasix CXR (08/05): mild-moderate pulmonary opacities likely pulmonary edema. No pneumothorax TANG on CKD3 nephrology consulted continue lasix/albumin drip as renal function/BP allows (08/03-) continue to monitor renal function NIDDM2 accu-cheks, SSI Hx CAD, multivessel s/p PCI; h/o transmural scar continue metoprolol, asa, statin troponin negative. Monitor on telemetry h/o [id number] VT and then vfib s/p life vest shock 11/2022, h/o VT cardiac arrest 09/2022, s/p shore/St yecenia dual chamber AICD 08/2023 Hx colon/cecal cancer, Stage II; s/p ex-lap, right hemicolectomy, ileo-colic anastomosis, diverting loop ileostomy on 03/28/23 with subsequent ileostomy closure 04/25/24 (Final path: T3 N0, with no indications for adjuvant therapy) continue supportive care VTE: heparin sq Code: Full Dispo: SNF, ~2 days Pending further diuresis / stability Time Spent Managing Pts Care (In Minutes): 47
--- NOTE | 2024-08-05 08:06 | RAD REPORT ---
Procedure: Chest Single View History: Chest pain Comparison: August 04, 2024 Findings: The right pleural effusion has significantly decreased in size status post thoracentesis. No pneumoth orax seen. Mild to moderate bilateral pulmonary opacities probably pulmonary edema Heart is mildly enlarged. Pacemaker leads in place. IMPRESSION: Mild to moderate bilateral pulmonary opacities probably pulmonary edema No pneumothorax status post thoracentesis
--- NOTE | 2024-08-05 11:32 | P.CNS ---
Date of Consult: 08/05/24 Chief Complaint: Shortness of breath History of Present Illness: Patient with PMH of heart failure reduced EF, complex CAD, VT s/p ICD, presented with worsening SOB and swelling of lower extremities, patient was recently discharged after treatment for scrotal cellulites, patient follow up with heart failure [employer] and getting evaluated for advanced heart failure therapies. Allergies No Known Allergies Allergy (Verified 07/20/24 02:30) Home medications list reviewed: Yes Home Medications: Aspirin [Aspirin EC 81 MG] 1 tab PO DAILY 09/28/22 Atorvastatin Calcium 20 mg PO DAILY 09/28/22 Metoprolol Succinate 1 tab PO DAILY 07/20/24 Midodrine HCl [Proamatine*] 5 mg PO TID tab 08/01/24 Furosemide [Lasix*] 40 mg PO BID 08/03/24 Loperamide [Imodium*] 1 cap PO Q4H PRN 08/03/24 - Past Medical/Surgical History Diabetic: Yes -: HTN -: Systolic Diastolic CHF LVEF 10% -: Moderate Pulmonary HTN -: DM II -: CKD III with Proteinuria (Dr. Leary/ Don) -: CAD/ TN -: Colon Cancer Stage II -: cardiac stents placement in January -: Bowel Resection -: Ileostomy reversal - Family History Father Medical History: Hypertension, Diabetes - Social History Alcohol use: No CD- Drugs: No Caffeine use: Yes [facility] Review of Systems 10-point ROS is otherwise unremarkable Physical Examination Temp Pulse Resp BP Pulse Ox 97.7 F 75 14 112/82 93 08/05/24 08:00 08/05/24 09:05 08/05/24 08:00 08/05/24 09:05 08/05/24 08:00 General: Alert, In no apparent distress HEENT: Atraumatic, PERRLA, Mucous membr. moist/pink, EOMI, Sclerae nonicteric Neck: Supple, 2+ carotid pulse no bruit, No LAD, Without JVD or thyroid abnormality Respiratory: Clear to auscultation bilaterally, Normal air movement Cardiovascular: Regular rate/rhythm, Normal S1 S2 Gastrointestinal: Normal bowel sounds, No tenderness Musculoskeletal: No tenderness Integumentary: No rashes Neurological: Normal gait, Normal speech, Normal tone, Normal affect Lymphatics: No axilla or inguinal lymphadenopathy Laboratory Data (last 24 hrs) 08/05/24 08/05/24 06:20 06:20 WBC 8.00 Hgb 14.5 D Hct 45.4 Plt Count 129 L Sodium 137 Potassium 4.1 BUN 65 H Creatinine 2.17 H Glucose 122 H Phosphorus 3.9 Magnesium 1.9 Total Bilirubin 1.1 H AST 12 L ALT < 14 L Alkaline Phosphatase 132 H - Problems (1) Acute on chronic combined systolic and diastolic heart failure Current Visit: No Status: Acute Plan: continue lasix drip continue to monitor input and output and electrolytes may switch to Bumex 2 mg po BID at discharge. (2) CAD (coronary artery disease) Current Visit: No Status: Acute Plan: currently denies having chest pain continue ASA and statin (3) HTN (hypertension) Current Visit: No Status: Chronic Plan: continue midodrine for BP support continue Toprol XL 25 mg daily Qualifiers: Hypertension type: primary hypertension
[2024-08-05] MEDS: MICONAZOLE 2% TOPICAL 15 GM TOP SCH (20:18)
--- NOTE | 2024-08-05 20:33 | P.PN ---
Date of Service: 08/05/24 Vital Signs Temp Pulse Resp BP Pulse Ox 97.5 F 80 18 125/73 94 08/05/24 19:59 08/05/24 19:59 08/05/24 19:59 08/05/24 19:59 08/05/24 19:59 Medications Acetaminophen (Acetaminophen 500 Mg Tab) 500 mg PO Q4HP PRN PRN Reason: TEMP > 100' F Hydrocodone Bitart/Acetaminophen (Hydrocodone/Apap 5/325 Mg Tab) 1 tab PO Q6H PRN PRN Reason: Pain scale 5-7 (Moderate) Last Admin: 08/04/24 15:15 Dose: 1 tab Albuterol Sulfate (Albuterol 2.5 Mg/3 Ml Neb Daisy) 2.5 mg NEB Q6HP PRN PRN Reason: SHORTNESS OF BREATH Aspirin (Aspirin Ec 81 Mg Tab) 81 mg PO DAILY [facility] Last Admin: 08/05/24 09:05 Dose: 81 mg Atorvastatin Calcium (Atorvastatin 20 Mg Tab) 20 mg PO BEDTIME [facility] Last Admin: 08/05/24 20:18 Dose: 20 mg Heparin Sodium (Porcine) (Heparin 5000 Unit/Ml 1 Ml Vial) 5,000 unit SQ Q8HR [facility] Last Admin: 08/05/24 17:23 Dose: 5,000 unit Albumin Human 12.5 gm/Furosemide 100 mg/ Sodium Chloride 100 mls @ 10 mls/hr IV Q10H [facility] Last Admin: 08/05/24 12:23 Dose: 100 mls Metoprolol Succinate (Metoprolol Xl 25 Mg Tab) 25 mg PO DAILY [facility] Last Admin: 08/05/24 09:05 Dose: 25 mg Miconazole Nitrate (Miconazole 2% Topical 15 Gm) 1 appl TOP BID [facility] Last Admin: 08/05/24 20:18 Dose: 1 appl Midodrine (Midodrine Hcl 5 Mg Tablet) 5 mg PO TID [facility] Last Admin: 08/05/24 20:18 Dose: 5 mg Ondansetron HCl (Ondansetron 4 Mg/2 Ml Vial) 4 mg IV Q6HP PRN PRN Reason: NAUSEA / VOMITING Last Admin: 08/04/24 04:57 Dose: 4 mg Lab Results (last 24 hrs) 08/05/24 06:20: Sodium 137, Potassium 4.1, Chloride 104, Carbon Dioxide 26, Anion Gap 11.1, BUN 65 H, Creatinine 2.17 H, Est GFR (CKD-EPI) 35 L, Glucose 122 H, Calcium 9.3, Phosphorus 3.9, Magnesium 1.9, Total Bilirubin 1.1 H, AST 12 L, ALT < 14 L, Alkaline Phosphatase 132 H, Serum Total Protein 6.5, Albumin 3.0 L, Globulin 3.5, Albumin/Globulin Ratio 0.9 L 08/05/24 06:20: WBC 8.00, RBC 5.33, Hgb 14.5 D, Hct 45.4, MCV 85.2, MCH 27.3, MCHC 32.1, RDW 17.6 H, Plt Count 129 L, MPV 10.2, Neutrophils % 56.7, Lymphocytes % 27.3, Monocytes % 12.1, Eosinophils % 2.6, Basophils % 1.3, Absolute Neutrophils 4.6, Absolute Lymphocytes 2.2, Absolute Monocytes 1.0, Absolute Eosinophils 0.2, Absolute Basophils 0.1 Microbiology Results 08/04/24 09:05 Body Fluid - Pleural Fluid Gram Stain - Final 08/04/24 09:05 Body Fluid - Pleural Fluid Culture & Sensitivity - Preliminary No growth. 08/03/24 15:40 Clean Catch Urine [place] Count - Final No growth. 08/03/24 15:40 Clean Catch Urine - Final No growth. Assessment/ Plan: Nephrology Progress Note Feeling better today with good urine output No Dyspnea No Chest Pain No Acute Events Overnight Vital Signs, Medications, Blood Work, and Imaging reviewed in the chart NAD. NCAT. MMM. Neck Supple. Normal Respiratory Effort. RRR. Abd ND. No C/C. LE Edema 2+. No Rash. AAO. Normal Speech. Diffuse sarcopenia. Assessment & Plan Stage I TANG likely CRS CKD III with Proteinuria -No NSAIDs -Continue diuresis Orthostatic Hypotension -Continue Midodrine Systolic Diastolic CHF, A/C -Continue Lasix gtt with Albumin DM II with CKD -Low sugar diet -RISS prn Hospitalist note reviewed Case reviewed with Dr. Luna
[2024-08-06 07:00] LABS: Absolute Basophils 0.1 K/uL (0-0.5); Absolute Eosinophils 0.1 K/uL (0-0.5); Absolute Monocytes 1.1 K/uL (0.1-1.3); Absolute Neutrophil 4.1 K/uL (1.8-8.0); Hematocrit 43.9 % (39.6-49.0); Hemoglobin 13.8 g/dL (13.6-17.9); Lymphocytes % 27.1 % (15.3-44.8); MCHC 31.4 g/dL (32.0-36.0); MCV 85.9 fL (80-100); Monocytes % 14.8 % (3.3-12.3); Neutrophils % 55.1 % (41.7-73.7); Nucleated Red Blood Cells % 0.2 % (0-0); Platelets 152 thou/uL (152-406); RBC Red Blood Cell Count 5.11 M/uL (4.33-5.43); Red Cell Distribution Width 17.8 % (12.1-15.2)
[2024-08-06 07:09] LABS: ALT/SGPT < 14 U/L (16-61); AST/SGOT 15 U/L (15-37); Albumin 3.2 g/dL (3.4-5.0); Albumin/Globulin Ratio 0.9 (1.1-1.8); Alkaline Phosphatase 130 U/L (45-117); Anion Gap 9.9 mEq/L (5.0-15.0); BUN Blood Urea Nitrogen 70 mg/dL (7-18); Bicarbonate 27 mEq/L (21-32); Bilirubin Total 1.1 mg/dL (0.2-1.0); Globulin 3.5 g/dL (2.3-3.5); Glomerular Filtration Rate 37 ml/min (=/>90); Glucose Level 161 mg/dL (74-106); Magnesium 2.1 mg/dL (1.6-2.4); Phosphorus 3.3 mg/dL (2.5-4.9); Potassium 3.9 mEq/L (3.5-5.1); Protein, Total 6.7 g/dL (6.4-8.2); Sodium Level 135 mEq/L (136-145)
[2024-08-06] MEDS: POTASSIUM CL SA 10 MEQ TAB PO ONE (07:54)
[2024-08-06] MEDS: ALBUMIN HUMAN 25% 12.5 GM, FUROSEMIDE 100 MG in NA CHLORIDE 0.9% 40 ML IV SCH (07:55)
--- NOTE | 2024-08-06 11:31 | P.PN ---
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 (HFrEF - 10%) Right pleural effusion s/p thoracentesis (08/04) TANG on CKD3 NIDDM2 Hx CAD, multivessel s/p PCI; h/o transmural scar h/o [id number] VT and then vfib s/p life vest shock 11/2022, h/o VT cardiac arrest 09/2022, s/p shore/[place] dual chamber AICD 08/2023 Hx colon/cecal cancer, Stage II; s/p ex-lap, right hemicolectomy, ileo-colic anastomosis, diverting loop ileostomy on 03/28/23 with subsequent ileostomy closure 04/25/24 (Final path: T3 N0, with no indications for adjuvant therapy) Acute on chronic combined systolic & diastolic CHF secondary to ICMP(HFrEF - 10%) Right pleural effusion s/p thoracentesis (08/04) On admission, presents with worsening shortness of breath. Worsened with activity. recently discharged ~3 days ago to SNF. Did okay for 1-2 days but dyspnea worsened and he came back. developed moderate right pleural effusion that was seen on outside CXR at [facility] prior to arrival recent echo (07/23): 10% EF, severe global hypokinesis, diastolic dysfunction, elevated filling pressure, moderate pulm HTN CXR (08/05): mild-moderate pulmonary opacities likely pulmonary edema. No pneumothorax Cardiology and nephrology consulted continue lasix/albumin drip as renal function/BP allows (08/03-) consider switching to bumex 2 mg BID on discharge per cardio continue midodrine TID Strict I/Os s/p thoracentesis (08/04); had 2L straw colored fluid removed responding well to lasix drip - diuresing well, down a few kg on room air TANG on CKD3 nephrology consulted continue lasix/albumin drip as renal function/BP allows (08/03-) continue to monitor renal function NIDDM2 accu-cheks, SSI Hx CAD, multivessel s/p PCI; h/o transmural scar continue metoprolol, asa, statin troponin negative. Monitor on telemetry h/o [id number] VT and then vfib s/p life vest shock 11/2022, h/o VT cardiac arrest 09/2022, s/p shore/St [place] dual chamber AICD 08/2023 Hx colon/cecal cancer, Stage II; s/p ex-lap, right hemicolectomy, ileo-colic anastomosis, diverting loop ileostomy on 03/28/23 with subsequent ileostomy closure 04/25/24 (Final path: T3 N0, with no indications for adjuvant therapy) continue supportive care VTE: heparin sq Code: Full Dispo: back to SNF, ~1 day Approved to return to SNF 08/05. Pending further diuresis / stability. Time Spent Managing Pts Care (In Minutes): 47
[2024-08-06 20:14] VITALS: TEMP 96.8
--- NOTE | 2024-08-06 20:42 | P.PN ---
Date of Service: 08/06/24 Vital Signs Temp Pulse Resp BP Pulse Ox 96.8 F 83 16 103/77 90 L 08/06/24 20:00 08/06/24 20:00 08/06/24 20:00 08/06/24 20:00 08/06/24 20:00 Medications Acetaminophen (Acetaminophen 500 Mg Tab) 500 mg PO Q4HP PRN PRN Reason: TEMP > 100' F Hydrocodone Bitart/Acetaminophen (Hydrocodone/Apap 5/325 Mg Tab) 1 tab PO Q6H PRN PRN Reason: Pain scale 5-7 (Moderate) Last Admin: 08/04/24 15:15 Dose: 1 tab Albuterol Sulfate (Albuterol 2.5 Mg/3 Ml Neb Daisy) 2.5 mg NEB Q6HP PRN PRN Reason: SHORTNESS OF BREATH Aspirin (Aspirin Ec 81 Mg Tab) 81 mg PO DAILY [facility] Last Admin: 08/06/24 07:54 Dose: 81 mg Atorvastatin Calcium (Atorvastatin 20 Mg Tab) 20 mg PO BEDTIME [facility] Last Admin: 08/06/24 20:05 Dose: 20 mg Heparin Sodium (Porcine) (Heparin 5000 Unit/Ml 1 Ml Vial) 5,000 unit SQ Q8HR [facility] Last Admin: 08/06/24 16:09 Dose: 5,000 unit Albumin Human 12.5 gm/Furosemide 100 mg/ Sodium Chloride 100 mls @ 10 mls/hr IV Q10H [facility] Last Admin: 08/06/24 17:57 Dose: 100 mls Metoprolol Succinate (Metoprolol Xl 25 Mg Tab) 25 mg PO DAILY [facility] Last Admin: 08/06/24 07:54 Dose: 25 mg Miconazole Nitrate (Miconazole 2% Topical 15 Gm) 1 appl TOP BID [facility] Last Admin: 08/06/24 20:05 Dose: 1 appl Midodrine (Midodrine Hcl 5 Mg Tablet) 5 mg PO TID [facility] Last Admin: 08/06/24 20:05 Dose: 5 mg Ondansetron HCl (Ondansetron 4 Mg/2 Ml Vial) 4 mg IV Q6HP PRN PRN Reason: NAUSEA / VOMITING Last Admin: 08/04/24 04:57 Dose: 4 mg Lab Results (last 24 hrs) 08/06/24 05:37: Sodium 135 L, Potassium 3.9, Chloride 102, Carbon Dioxide 27, Anion Gap 9.9, BUN 70 H, Creatinine 2.06 H, Est GFR (CKD-EPI) 37 L, Glucose 161 H, Calcium 9.6, Phosphorus 3.3, Magnesium 2.1, Total Bilirubin 1.1 H, AST 15, ALT < 14 L, Alkaline Phosphatase 130 H, Serum Total Protein 6.7, Albumin 3.2 L, Globulin 3.5, Albumin/Globulin Ratio 0.9 L 08/06/24 05:37: WBC 7.50, RBC 5.11, Hgb 13.8, Hct 43.9, MCV 85.9, MCH 27.0, MCHC 31.4 L, RDW 17.8 H, Plt Count 152, MPV 11.0, Neutrophils % 55.1, Lymphocytes % 27.1, Monocytes % 14.8 H, Eosinophils % 2.0, Basophils % 1.0, Absolute Neutrophils 4.1, Absolute Lymphocytes 2.0, Absolute Monocytes 1.1, Absolute Eosinophils 0.1, Absolute Basophils 0.1 Microbiology Results 08/04/24 09:05 Body Fluid - Pleural Fluid Gram Stain - Final 08/04/24 09:05 Body Fluid - Pleural Fluid Culture & Sensitivity - Final No growth. 08/03/24 15:40 Clean Catch Urine [place] Count - Final No growth. 08/03/24 15:40 Clean Catch Urine - Final No growth. Assessment/ Plan: Nephrology Progress Note No Dyspnea No Chest Pain No Acute Events Overnight Vital Signs, Medications, Blood Work, and Imaging reviewed in the chart NAD. NCAT. MMM. Neck Supple. Normal Respiratory Effort. RRR. Abd ND. No C/C. LE Edema 2+. No Rash. AAO. Normal Speech. Diffuse sarcopenia. Assessment & Plan Stage I TANG likely CRS CKD III with Proteinuria -No NSAIDs -Continue diuresis Hyponatremia -Continue Lasix Orthostatic Hypotension -Continue Midodrine Systolic Diastolic CHF, A/C -Continue Lasix gtt with Albumin DM II with CKD -Low sugar diet -RISS prn Hospitalist note reviewed Case reviewed with Dr. Luna
[2024-08-06 21:37] VITALS: O2SAT 94
[2024-08-07 04:04] LABS: LD, PLEURAL FLUID 38 U/L; TOTAL PROTEIN, PLEURAL FLUID <3.0 g/dL; TRIGLYCERIDE, PLEURAL FLUID 47 mg/dL
[2024-08-07] MEDS: MAGNES/ALUMIN/SIMET 30ML UCUP PO PRN (04:09)
[2024-08-07 06:50] LABS: Albumin 3.3 g/dL (3.4-5.0); Alkaline Phosphatase 155 U/L (45-117); BUN Blood Urea Nitrogen 69 mg/dL (7-18); Bicarbonate 28 mEq/L (21-32); Globulin 3.3 g/dL (2.3-3.5); Glomerular Filtration Rate 40 ml/min (=/>90); Glucose Level 222 mg/dL (74-106); Magnesium 1.9 mg/dL (1.6-2.4); Phosphorus 3.4 mg/dL (2.5-4.9); Protein, Total 6.6 g/dL (6.4-8.2); Sodium Level 136 mEq/L (136-145)
[2024-08-07 06:51] LABS: ALT/SGPT < 14 U/L (16-61); AST/SGOT < 10 U/L (15-37)
--- NOTE | 2024-08-07 08:36 | P.CNS ---
Date of Consult: 08/07/24 Reason for Consult: Painful toenails Chief Complaint: Shortness of breath Allergies No Known Allergies Allergy (Verified 07/20/24 02:30) Home Medications: Aspirin [Aspirin EC 81 MG] 1 tab PO DAILY 09/28/22 Atorvastatin Calcium 20 mg PO DAILY 09/28/22 Metoprolol Succinate 1 tab PO DAILY 07/20/24 Midodrine HCl [Proamatine*] 5 mg PO TID tab 08/01/24 Furosemide [Lasix*] 40 mg PO BID 08/03/24 Loperamide [Imodium*] 1 cap PO Q4H PRN 08/03/24 - Past Medical/Surgical History Diabetic: Yes -: HTN -: Systolic Diastolic CHF LVEF 10% -: Moderate Pulmonary HTN -: DM II -: CKD III with Proteinuria (Dr. Leary/ Don) -: CAD/ [place] -: Colon Cancer Stage II -: cardiac stents placement in January -: Bowel Resection -: Ileostomy reversal - Family History Father Medical History: Hypertension, Diabetes - Social History Alcohol use: No CD- Drugs: No Caffeine use: Yes Place of Residence: [place] Review of Systems 10-point ROS is otherwise unremarkable Physical Examination Temp Pulse Resp BP Pulse Ox 96.8 F 83 16 114/83 93 08/07/24 04:00 08/07/24 04:00 08/07/24 04:00 08/07/24 04:00 08/07/24 04:00 General: Alert, In no apparent distress, Oriented x3 Cardiovascular: No edema, Abnormal pulses (0/4 dp and pt pulses bilateral) Capillary refill: >2 Seconds Musculoskeletal: No clubbing, No swelling, No contractures, No erythema, No tenderness, No warmth Integumentary: No rashes, No breakdown, No significant lesion, No tenderness/swelling, No erythema, No warmth, No cyanosis, Other (Thickened hypertrophic hallux nail bilateral, elongated dystrophic nails 2-5 bilateral. 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
[2024-08-07 08:39] VITALS: BP 110/80
--- NOTE | 2024-08-07 09:04 | P.DS ---
Admission Date: 08/03/24 Discharge Date: 08/07/24 Disposition: TRANSFER TO SNF - REHAB Reason for Admission: Shortness of breath Consultations: Cardiology - Dr. Johnson Nephrology - Dr. Leary Podiatry - Dr. Miller Brief History of Present Illness: 53yo M, PMH: systolic heart failure, recent echocardiogram showing EF of 10%, NIDDM2, CAD s/p PCI, Colon/cecal cancer Patient was recently admitted for scrotal edema and cellulitis Lower extremities edema and cellulitis, found to have anasarca which was managed with IV Lasix and consultation with nephrology and cardiology consult. Patient was also treated with IV antibiotics. He clinically improved, the cellulitis resolved and anasarca significantly improved. Patient was discharged just to renew for rehab 3 days ago. According to report patient was sent to the emergency department last increasing shortness of breath. He was requiring 2 L of oxygen by nasal cannula at the [facility] ER. Chest x-ray done showed moderate right-sided pleural effusion. Blood work showed creatinine elevated to 2.7 which is above baseline. Vital stable. Patient was transferred here to be admitted for further management. 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 (HFrEF - 10%) Right pleural effusion s/p thoracentesis (08/04) TANG on CKD3 NIDDM2 Hx CAD, multivessel s/p PCI; h/o transmural scar h/o [id number] VT and then vfib s/p life vest shock 11/2022, h/o VT cardiac arrest 09/2022, s/p shore/[place] dual chamber AICD 08/2023 Hx colon/cecal cancer, Stage II; s/p ex-lap, right hemicolectomy, ileo-colic anastomosis, diverting loop ileostomy on 03/28/23 with subsequent ileostomy closure 04/25/24 (Final path: T3 N0, with no indications for adjuvant therapy) Physician discharge instructions: Patient presented with worsening shortness of breath secondary to pulmonary edema / right pleural effusion. He was recently discharged ~3 days ago to SNF and reportdly did okay for 1-2 days then dyspnea worsened. Outside chest xray from [place] [facility] prior to arrival noted moderate right pleural effusion. Patient has had mild-moderate pleural effusion for a few months now, and did undergo prior thoracentesis (06/10/24 1.5L removed). He also reported slight worsening of his lower extremity edema after discharge as well. Patient underwent thoracentesis on 08/04 and had 2L of straw colored fluid removed. Fluid cytology from thoracentesis was negative for malignancy. No infection. He reported significant relief post thoracentesis. Post thoracenesis chest xray noted moderate improvement without evidence of pneumothorax. Cardiology and nephrology were consulted. Patient received ~4 days of lasix/albumin drip and continued to improve. Renal function improved daily while being diuresed. Creatinine on discharge: 1.93 Dr. Johnson recommended switching patient's home lasix to bumex 2mg twice daily on discharge. Patient reports having follow up appointment with primary balancer later in the month. Patient was feeling better, breathing more comfortably on room air, lower extremity edema improving and deemed stable for discharge back to [facility]. Medications: Bumex 2mg twice daily Stop Lasix Follow up: PCP 3-5 days Cardiology 2-4 weeks Nephrology 2-4 weeks Please call to schedule / confirm appointments Physical Exam: GEN: Alert, NAD HEENT: Normal conjunctiva, sclera anicteric CV: Regular rate and rhythm, trace lower extremity edema Pulm: Nonlabored respirations on room air, clear bilaterally ABD: soft, nontender, nondistended Neuro: Normal speech, normal affect Vital Signs/Physical Exam: Temp Pulse Resp BP Pulse Ox 96.8 F 88 16 110/80 93 08/07/24 04:00 08/07/24 08:37 08/07/24 04:00 08/07/24 08:37 08/07/24 04:00 Laboratory Data at Discharge: WBC 7.50 thou/uL (4.3-10.9) 08/06/24 05:37 Hgb 13.8 g/dL (13.6-17.9) 08/06/24 05:37 Hct 43.9 % (39.6-49.0) 08/06/24 05:37 Plt Count 152 thou/uL (152-406) 08/06/24 05:37 Sodium 136 mEq/L (136-145) 08/07/24 05:42 Potassium 4.0 mEq/L (3.5-5.1) 08/07/24 05:42 BUN 69 mg/dL (7-18) H 08/07/24 05:42 Creatinine 1.93 mg/dL (0.70-1.30) H 08/07/24 05:42 Glucose 222 mg/dL (74-106) H 08/07/24 05:42 Phosphorus 3.4 mg/dL (2.5-4.9) 08/07/24 05:42 Magnesium 1.9 mg/dL (1.6-2.4) 08/07/24 05:42 Total Bilirubin 1.0 mg/dL (0.2-1.0) 08/07/24 05:42 AST < 10 U/L (15-37) L 08/07/24 05:42 ALT < 14 U/L (16-61) L 08/07/24 05:42 Alkaline Phosphatase 155 U/L (45-117) H 08/07/24 05:42 Home Medications: RX: Aspirin [Aspirin EC 81 MG] 1 tab PO DAILY 09/28/22 RX: Atorvastatin Calcium 20 mg PO DAILY 09/28/22 RX: Metoprolol Succinate 1 tab PO DAILY 07/20/24 RX: Midodrine HCl [Proamatine*] 5 mg PO TID tab 08/01/24 RX: Furosemide [Lasix*] 40 mg PO BID 08/03/24 RX: Loperamide [Imodium*] 1 cap PO Q4H PRN 08/03/24 Physician Discharge Instructions: Physician discharge instructions: Patient presented with worsening shortness of breath secondary to pulmonary edema / right pleural effusion. He was recently discharged ~3 days ago to SNF and reportdly did okay for 1-2 days then dyspnea worsened. Outside chest xray from [facility] prior to arrival noted moderate right pleural effusion. Patient underwent thoracentesis on 08/04 and had 2L of straw colored fluid removed. Fluid cytology from thoracentesis was negative for malignancy. He reported significant relief post thoracentesis. Post thoracenesis chest xray noted moderate improvement without evidence of pneumothorax. Cardiology and nephrology were consulted. Patient received ~4 days of lasix/albumin drip and continued to improve. Renal function improved daily while being diuresed. Creatinine on discharge: 1.93 Dr. Johnson recommended switching patient's home lasix to bumex 2mg twice daily on discharge. Patient reports having follow up appointment with primary balancer later in the month. Patient was feeling better, breathing more comfortably on room air, lower extremity edema improving and deemed stable for discharge back to [facility]. Medications: Bumex 2mg twice daily Stop Lasix Follow up: PCP 3-5 days Cardiology 2-4 weeks Nephrology 2-4 weeks Please call to schedule / confirm appointments Time spent managing pt's care (in minutes): 45
[2024-08-07 10:39] VITALS: BMI 20.6
--- NOTE | 2024-08-07 20:01 | P.PN ---
Date of Service: 08/07/24 Vital Signs Temp Pulse Resp BP Pulse Ox 96.8 F 88 16 110/80 94 08/07/24 08:00 08/07/24 08:37 08/07/24 08:00 08/07/24 08:37 08/07/24 08:00 Lab Results (last 24 hrs) 08/07/24 05:42: Sodium 136, Potassium 4.0, Chloride 100, Carbon Dioxide 28, Anion Gap 12.0, BUN 69 H, Creatinine 1.93 H, Est GFR (CKD-EPI) 40 L, Glucose 222 H, Calcium 9.2, Phosphorus 3.4, Magnesium 1.9, Total Bilirubin 1.0, AST < 10 L, ALT < 14 L, Alkaline Phosphatase 155 H, Serum Total Protein 6.6, Albumin 3.3 L, Globulin 3.3, Albumin/Globulin Ratio 1.0 L 08/04/24 09:05: Pleural Total Protein <3.0, Pleural LDH 38, Pleural Glucose 157, Pleural Triglycerides 47 08/04/24 09:05: Pleural Cholesterol 19 Microbiology Results 08/04/24 09:05 Body Fluid - Pleural Fluid Gram Stain - Final 08/04/24 09:05 Body Fluid - Pleural Fluid Culture & Sensitivity - Final No growth. 08/03/24 15:40 Clean Catch Urine Emerson Count - Final No growth. 08/03/24 15:40 Clean Catch Urine - Final No growth. Assessment/ Plan: Nephrology Progress Note No Dyspnea No Chest Pain No Acute Events Overnight Vital Signs, Medications, Blood Work, and Imaging reviewed in the chart NAD. NCAT. MMM. Neck Supple. Normal Respiratory Effort. RRR. Abd ND. No C/C. LE Edema 2+. No Rash. AAO. Normal Speech. Diffuse sarcopenia. Assessment & Plan Stage I TANG likely CRS CKD III with Proteinuria -No NSAIDs -Continue diuresis Hyponatremia -Continue Lasix Orthostatic Hypotension -Continue Midodrine Systolic Diastolic CHF, A/C -Change Lasix to Bumex 2mg PO BID DM II with CKD -Low sugar diet -RISS prn Hospitalist note reviewed Case reviewed with Dr. Luna
[2024-08-08 09:19] LABS: ALBUMIN, PLEURAL FLUID 1.1 g/dL
== END 2024-08-07 11:25 | DRG 291 ==
LOC: 4TH 09:53
PROVIDERS: ADMIT Nurse Practitioner; ATTEND Hospitalist
PROC: 0W993ZZ Drainage of Right Pleural Cavity, Percutaneous Approach (ICD-10-PCS; principal; 2024-08-05)
PROC: 0HBRXZZ Excision of Toe Nail, External Approach (ICD-10-PCS; 2024-08-07)
DX: I13.0 Hypertensive heart and chronic kidney disease with heart failure and stage 1 through stage 4 chronic kidney disease, or unspecified chronic kidney disease (principal); I50.43 Acute on chronic combined systolic (congestive) and diastolic (congestive) heart failure; N17.9 Acute kidney failure, unspecified; E87.1 Hypo-osmolality and hyponatremia; N18.30 Chronic kidney disease, stage 3 unspecified; E11.22 Type 2 diabetes mellitus with diabetic chronic kidney disease; I25.5 Ischemic cardiomyopathy; I95.1 Orthostatic hypotension; L60.2 Onychogryphosis; B35.1 Tinea unguium; I27.20 Pulmonary hypertension, unspecified; I25.10 Atherosclerotic heart disease of native coronary artery without angina pectoris; I25.2 Old myocardial infarction; Z93.2 Ileostomy status; Z95.5 Presence of coronary angioplasty implant and graft; Z79.82 Long term (current) use of aspirin; Z79.01 Long term (current) use of anticoagulants; Z79.899 Other long term (current) drug therapy; Z87.891 Personal history of nicotine dependence; Z85.038 Personal history of other malignant neoplasm of large intestine; Z95.810 Presence of automatic (implantable) cardiac defibrillator
CPT/HCPCS: 32555; 36415; 71045; 80053; 81001; 82042; 82945; 83615; 83735; 84100; 84157; 84311; 84478; 84484; 85025; 87070; 87086; 87088; 88108; 88305; 89050; 97110; 97116; 97161; 97530; J1644; J2405; P9047

== ENCOUNTER → 2024-08-03 | Emergency (ER) | payer OTHER | LOC: ER 09:16 | DX: Z02.9 Encounter for administrative examinations, unspecified (principal) ==

== ENCOUNTER 2024-10-06 15:22 | Inpatient (IN) | payer OTHER ==
[2024-10-06] MEDS ORDERED: FUROSEMIDE 20 MG/ 2ML VIAL ONE (16:18)
[2024-10-06 16:48] LABS: SARS-CoV-2 Antigen CONTROL BLUE LINE VIS/BG OK; SARS-CoV-2 Antigen Rapid Res Negative (Negative)
[2024-10-06 16:55] LABS: Absolute Basophils 0.1 K/uL (0-0.5); Absolute Eosinophils 0.1 K/uL (0-0.5); Absolute Lymphocytes (CBC) 1.2 K/uL (0.7-4.9); Absolute Monocytes 0.5 K/uL (0.1-1.3); Absolute Neutrophil 3.8 K/uL (1.8-8.0); Basophils % 1.3 % (0-1.3); Eosinophils % 1.4 % (0-4.4); Hematocrit 37.7 % (39.6-49.0); Hemoglobin 11.8 g/dL (13.6-17.9); Lymphocytes % 22.1 % (15.3-44.8); MCH 29.1 pg (27.0-35.0); MCHC 31.4 g/dL (32.0-36.0); MCV 92.7 fL (80-100); MPV 9.5 fL (7.6-11.3); Neutrophils % 67.2 % (41.7-73.7); Nucleated Red Blood Cells % 0.2 % (0-0); Platelets 153 thou/uL (152-406); RBC Red Blood Cell Count 4.07 M/uL (4.33-5.43); Red Cell Distribution Width 24.8 % (12.1-15.2)
[2024-10-06 17:03] LABS: PT Prothrombin Time 15.5 SECONDS (9.4-12.5); PTT, Activated Partial Thromb 38.5 SECONDS (24.3-36.9); Protime INR 1.4
[2024-10-06 17:14] LABS: Albumin 3.2 g/dL (3.4-5.0); Albumin/Globulin Ratio 0.8 (1.1-1.8); Anion Gap 11.3 mEq/L (5.0-15.0); Bilirubin Total 1.5 mg/dL (0.2-1.0); Globulin 4.1 g/dL (2.3-3.5); Potassium 4.3 mEq/L (3.5-5.1); Protein, Total 7.3 g/dL (6.4-8.2); Troponin High Sensitivity 19.6 pg/mL (<58.9)
--- NOTE | 2024-10-06 17:47 | RAD REPORT ---
EXAMINATION: ONE VIEW CHEST XR CLINICAL INDICATION: Male, 54 years old.,DYSPNEA TECHNIQUE: Frontal chest projection is submitted. Examination is limited by patient positioning and t echnique. COMPARISON: 08/05/2024 FINDINGS: Progressive right effusion, now up to large. Left perihilar hazy opacities are marginally improved. L eft chest wall pacer/AICD unchanged in position. No pneumothorax or sizable left-sided effusion. The heart is normal in size. Mediastinal contours are unremarkable. IMPRESSION: Progressive right-sided pleural effusion is above.
[2024-10-06 18:01] LABS: Blood Morphology Comment NOTED (NOT SEEN); Platelet Estimate ADEQ; White Blood Cell Scan OK (OK)
[2024-10-06 18:02] LABS: Anisocytosis 1+
--- NOTE | 2024-10-06 18:22 | ER ---
Nurse's Notes [facility] Name: Royce Farr Age: 54 yrs Sex: Male : 1970 Arrival Date: 10/06/2024 Time: 15:22 Bed 14 Private MD: Diagnosis: Unspecified combined systolic (congestive) and diastolic (congestive) heart failure;Pleural effusion, not elsewhere classified;Dyspnea, unspecified Presentation: 10/06 15:38 Chief complaint: EMS states: TONED TO PATIENT'S HOME FOR SHORTNESS OF BREATH ONSET cm10 YESTERDAY. PT STATES THAT THE SHORTNESS OF BREATH IS WORSE WHEN LAYING FLAT. Coronavirus screen: Client denies travel out of the [place] in the last 14 days. Ebola Screen: Patient denies travel to an Ebola-affected area in the 21 days before illness onset. No symptoms or risks identified at this time. Initial Sepsis Screen: Does the patient meet any 2 criteria? No. Patient's initial sepsis screen is negative. Does the patient have a suspected source of infection? No. Patient's initial sepsis screen is negative. Risk Assessment: Do you want to hurt yourself or someone else? Patient reports no desire to harm self or others. Onset of symptoms was October 05, 2024. 15:38 Method Of Arrival: EMS: [facility] cm10 15:38 Acuity: SANDRO 2 cm10 Triage Assessment: 15:45 General: Appears in no apparent distress. uncomfortable, Behavior is calm, cooperative. cm10 Pain: Denies pain. Neuro: No deficits noted. Level of Consciousness is awake, alert, obeys commands, Oriented to person, place, time, situation, Appropriate for age. Respiratory: Reports shortness of breath at rest Airway is patent Respiratory effort is labored, Respiratory pattern is tachypnea. Respiratory: Breath sounds are clear in left upper lobe and left lower lobe Breath sounds are diminished in right upper lobe, right middle lobe and right lower lobe Onset: The symptoms/episode began/occurred yesterday, the patient has moderate shortness of breath. 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 - Infectious Disease History:: Denies. - Social history:: Smoking status: Patient denies any tobacco usage or history of. - Family history:: not pertinent. - Hospitalizations: : No recent hospitalization is reported. Screenin:32 [facility] ED Fall Risk Assessment (Adult) History of falling in the last 3 months, cm10 including since admission No falls in past 3 months (0 pts) Confusion or Disorientation No (0 pts) Intoxicated or Sedated No (0 pts) Impaired Gait No (0 pts) Mobility Assist Device Used No (0 pt) Altered Elimination No (0 pt) Score/Fall Risk Level 0 - 2 = Low Risk Oriented to surroundings, Maintained a safe environment, Hourly rounding (assess needs \T\ fall precautionary measures) done. Abuse screen: Denies threats or abuse. Denies injuries from another. Nutritional screening: No deficits noted. Tuberculosis screening: No symptoms or risk factors identified. Assessment: 18:35 Reassessment: Patient appears in no apparent distress at this time. No changes from cm10 previously documented assessment. Patient and/or family updated on plan of care and expected duration. Pain level reassessed. Patient is alert, oriented x 3, equal unlabored respirations, skin warm/dry/pink. Patient states symptoms have improved. 19:10 Reassessment: BEDSIDE REPORT AT THIS TIME PATIENT RETURNED FROM IMAGING. kj2 19:57 Reassessment: Patient appears in no apparent distress at this time. Patient and/or kj2 family updated on plan of care and expected duration. Pain level reassessed. Patient is alert, oriented x 3, equal unlabored respirations, skin warm/dry/pink. 21:00 Reassessment: Patient appears in no apparent distress at this time. Patient and/or kj2 family updated on plan of care and expected duration. Pain level reassessed. Patient is alert, oriented x 3, equal unlabored respirations, skin warm/dry/pink. 21:28 Cardiovascular: Rhythm is sinus rhythm. kj2 23:03 Reassessment: Patient appears in no apparent distress at this time. Patient is alert, kj2 oriented x 3, equal unlabored respirations, skin warm/dry/pink. Patient is alert/active/playful, equal unlabored respirations, skin warm/dry/pink. Vital Signs: 15:38 BP 132 / 108; Pulse 89; Resp 30; Temp 95.8(TE); Pulse Ox 99% on R/A; Weight 55.34 kg; cm10 Height 5 ft. 5 in. ; Pain 0/10; 16:00 BP 133 / 103; Pulse 88; Resp 25; Pulse Ox 98% on 2 lpm NC; cm10 16:30 BP 140 / 101; Pulse 89; Resp 24; Pulse Ox 99% on 2 lpm NC; cm10 17:00 BP 144 / 101; Pulse 91; Resp 25; Pulse Ox 100% on 2 lpm NC; cm10 17:30 BP 135 / 100; Pulse 90; Resp 22; Pulse Ox 100% on 2 lpm NC; cm10 18:00 BP 140 / 100; Pulse 89; Resp 20; Pulse Ox 98% on 2 lpm NC; cm10 19:57 BP 126 / 98; Pulse 88; Resp 20; Pulse Ox 99% on R/A; kj2 21:14 BP 140 / 90; Pulse 90; Resp 18; Pulse Ox 97% on 3 lpm NC; kj2 23:03 BP 142 / 88; Pulse 88; Resp 20; Pulse Ox 97% on 3 lpm NC; kj2 15:38 Body Mass Index 20.30 (55.34 kg, 165.1 cm) cm10 15:38 Pain Scale: Adult cm10 ED Course: 15:24 Patient arrived in ED. cm10 15:33 Antonietta Horner MD is Attending Physician. gb1 15:35 Attending Physician role handed off by Antonietta Horner MD rn 15:35 Kings Luna MD is Attending Physician. rn 15:38 Adriana Wise, NEY is Primary Nurse. cm10 15:44 Triage completed. cm10 15:45 Arm band placed on right wrist. Patient placed in an exam room, on a stretcher, on cm10 oxygen, on legal specialist, on pulse oximetry. 15:55 Initial lab(s) drawn, by me, sent to lab. First set of blood cultures drawn by il, cm10 COVID swab sent to lab. Flu and/or RSV swab sent to lab. 16:04 Missed attempt(s): 18 gauge in left antecubital area. Bleeding controlled, band aid cm10 applied, catheter tip intact. 16:15 Second set of blood cultures drawn by me. Inserted saline lock: 20 gauge in left cm10 antecubital area, using aseptic technique. Blood collected. Flushed with 10 mL NS. 16:51 XRAY CXR (1 view) In Process Unspecified. EDMS 18:20 Elvis Sellers MD is Hospitalizing Provider. rn 19:02 CT Chest W/ Con In Process Unspecified. EDMS 19:04 Report given to NEY BHATTI. cm10 19:10 Patient has correct armband on for positive identification. Placed in gown. Bed in low kj2 position. Call light in reach. Provided Education on: call light. 19:32 Oumou Oshea RN is Primary Nurse. kj2 21:28 No provider procedures requiring assistance completed. kj2 23:03 Cleaned of incontinence. kj2 23:05 Patient admitted, IV remains in place. kj2 Administered Medications: 16:21 Drug: Furosemide IVP 20 mg IVP once; give over 2 minutes Route: IVP; Site: left cm10 antecubital; 16:52 Follow up: Response: No adverse reaction cm10 19:31 Drug: Furosemide IVP 40 mg IVP once; give over 2 minutes Route: IVP; Site: left cm10 antecubital; 19:56 Follow up: Response: No adverse reaction kj2 Medication: 21:27 VIS not applicable for this client. kj2 Outcome: 18:19 Discharge ordered by MD. rn 18:20 Decision to Hospitalize by Provider. rn 23:04 Admitted to Med/surg accompanied by tech, via wheelchair, room 223, with oxygen, kj2 23:04 Condition: stable 23:04 Instructed on the need for admit, 23:05 Patient left the ED. kj2 Signatures: Dispatcher [employer] EDMS Kings Luna MD MD rn Martinez, Clarissa, RN RN cm10 Antonietta Horner MD MD gb1 Oumou Oshea RN RN kj2
--- NOTE | 2024-10-06 18:22 | EDPHYS ---
Physician Documentation [facility] Name: Royce Farr Age: 54 yrs Sex: Male : 1970 Arrival Date: 10/06/2024 Time: 15:22 Bed 14 Private MD: ED Physician Kings Luna HPI: 10/06 16:47 This 54 yrs old Male presents to ER via EMS with complaints of Shortness Of Breath. rn 16:47 The patient has shortness of breath at rest, with light activity. Onset: The rn symptoms/episode began/occurred today. The patient's shortness of breath is aggravated by light activity, supine position, talking. Severity of symptoms: At their worst the symptoms were moderate in the emergency department the symptoms are unchanged. The patient has experienced similar episodes in the past. Patient reports shortness of breath and generalized weakness that he noticed today. Called 911 for lift assist but was having respiratory difficulty so brought in for evaluation. Reports increased swelling. Known history of CHF. No fever or chills.. 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 - Infectious Disease History:: Denies. - Social history:: Smoking status: Patient denies any tobacco usage or history of. - Family history:: not pertinent. - Hospitalizations: : No recent hospitalization is reported. ROS: 16:47 Constitutional: Negative for fever, chills, and weight loss, Cardiovascular: Negative rn for chest pain, palpitations, and edema, Respiratory: Positive for shortness of breath Abdomen/GI: Negative for abdominal pain, nausea, vomiting, diarrhea, and constipation, MS/Extremity: Positive for leg swelling Skin: Negative for injury, rash, and discoloration, Neuro: Positive for generalized weakness Exam: 16:47 Constitutional: This is a well developed, well nourished patient who is awake, alert, rn mild tachypnea ENT: No stridor Cardiovascular: Regular rate and rhythm with a normal S1 and S2. No gallops, murmurs, or rubs. Normal PMI, no JVD. No pulse deficits. Respiratory: Mild tachypnea with diminished breath sounds right lung barboza Abdomen/GI: Soft, nontender MS/ Extremity: 2+ edema bilateral lower extremities Neuro: Awake and alert, GCS 15 19:18 ECG was reviewed by the Attending Physician. rn Vital Signs: 15:38 BP 132 / 108; Pulse 89; Resp 30; Temp 95.8(TE); Pulse Ox 99% on R/A; Weight 55.34 kg; cm10 Height 5 ft. 5 in. ; Pain 0/10; 16:00 BP 133 / 103; Pulse 88; Resp 25; Pulse Ox 98% on 2 lpm NC; cm10 16:30 BP 140 / 101; Pulse 89; Resp 24; Pulse Ox 99% on 2 lpm NC; cm10 17:00 BP 144 / 101; Pulse 91; Resp 25; Pulse Ox 100% on 2 lpm NC; cm10 17:30 BP 135 / 100; Pulse 90; Resp 22; Pulse Ox 100% on 2 lpm NC; cm10 18:00 BP 140 / 100; Pulse 89; Resp 20; Pulse Ox 98% on 2 lpm NC; cm10 19:57 BP 126 / 98; Pulse 88; Resp 20; Pulse Ox 99% on R/A; kj2 21:14 BP 140 / 90; Pulse 90; Resp 18; Pulse Ox 97% on 3 lpm NC; kj2 23:03 BP 142 / 88; Pulse 88; Resp 20; Pulse Ox 97% on 3 lpm NC; kj2 15:38 Body Mass Index 20.30 (55.34 kg, 165.1 cm) cm10 15:38 Pain Scale: Adult cm10 MDM: 15:35 Medical Screening Exam initiated rn 18:19 Differential diagnosis: Anemia Anxiety Reaction Bronchitis CHF exacerbation, Myocardial rn Infarction pneumonia, Pneumothorax pulmonary edema. Data reviewed: vital signs, nurses notes, lab test result(s), EKG, radiologic studies, plain films, and as a result, I will admit patient. Consideration of Admission/Observation Patient was admitted/placed on observation. Escalation of care including admission/observation considered. Counseling: I had a detailed discussion with the patient and/or guardian regarding the historical points, exam findings, and any diagnostic results supporting the discharge/admit diagnosis, lab results, radiology results, the need for further work-up and treatment in the hospital. Response to treatment: the patient's symptoms have mildly improved after treatment. 10/06 15:36 Order name: Blood Culture Adult (2) rn / 15:36 Order name: CBC with Diff; Complete Time: 18:10 rn / 15:36 Order name: Lipase; Complete Time: 17:34 rn 10/06 15:36 Order name: Magnesium; Complete Time: 17:34 rn 10/06 15:36 Order name: NT PRO-BNP; Complete Time: 17:34 rn 10/06 15:36 Order name: PT-INR; Complete Time: 17:11 rn 10/06 15:36 Order name: Ptt, Activated; Complete Time: 17:11 rn 10/06 15:36 Order name: Troponin HS; Complete Time: 17:34 rn 10/06 15:36 Order name: CMP; Complete Time: 17:34 rn 10/06 15:36 Order name: Lactate w/ 2H reflex if indic.; Complete Time: 17:11 rn 10/06 15:38 Order name: Flu; Complete Time: 17:11 rn 10/06 15:38 Order name: SARS RAPID; Complete Time: 17:11 rn 10/06 18:02 Order name: CBC Smear Scan; Complete Time: 18:10 EDTX 10/06 20:08 Order name: Urinalysis w/ reflexes EDMS 10/06 20:08 Order name: CBC with Automated Diff EDMS 10/06 20:08 Order name: CBC with Automated Diff EDMS 10/06 20:08 Order name: Comprehensive Metabolic Panel EDMS 10/06 20:08 Order name: Comprehensive Metabolic Panel EDMS 10/06 20:08 Order name: Magnesium EDMS 10/06 20:08 Order name: Magnesium EDMS 10/06 15:36 Order name: XRAY CXR (1 view); Complete Time: 17:53 rn 10/06 18:32 Order name: CT Chest W/ Con; Complete Time: 20:05 rn 10/06 20:12 Order name: Thoracentesis w/ US Guide EDMS 10/06 15:36 Order name: EKG; Complete Time: 15:36 rn 10/06 20:08 Order name: Physical Therapy Consult EDTX 10/06 15:36 Order name: Cardiac monitoring; Complete Time: 16:16 rn 10/06 15:36 Order name: EKG - Nurse/Tech; Complete Time: 16:31 rn 10/06 15:36 Order name: IV Saline Lock; Complete Time: 16:16 rn 10/06 15:36 Order name: Labs collected and sent; Complete Time: 16:16 rn 10/06 15:36 Order name: O2 Per Protocol; Complete Time: 16:16 rn 10/06 15:36 Order name: O2 Sat Monitoring; Complete Time: 16:16 rn 12 15:36 Order name: IV Saline Lock - Large Bore; Complete Time: 16:16 rn 10/06 15:36 Order name: Vital Signs; Complete Time: 16:16 rn 10/06 16:18 Order name: Labs - recollect needed: recollect green blue and lavender top; Complete bd Time: 16:51 EC:18 Rate is 89 beats/min. Rhythm is regular. QRS [place] is Normal. ND interval is normal. QRS rn interval is prolonged at 150 msec. QT interval is normal. No Q waves. T waves are Normal. No ST changes noted. Clinical impression: NSR w/ Non-specific ST/T Changes. Interpreted by me. Reviewed by me. Administered Medications: 16:21 Drug: Furosemide IVP 20 mg IVP once; give over 2 minutes Route: IVP; Site: left cm10 antecubital; 16:52 Follow up: Response: No adverse reaction cm10 19:31 Drug: Furosemide IVP 40 mg IVP once; give over 2 minutes Route: IVP; Site: left cm10 antecubital; 19:56 Follow up: Response: No adverse reaction kj2 Disposition Summary: 10/06/24 18:20 Hospitalization Ordered Notes: Hospitalization Status: Inpatient Admission rn Provider: Elvis Sellers rn Location: Telemetry/MedSurg (Inpatient)(10/06/24 18:20) rn Condition: Stable(10/06/24 18:20) rn Problem: an acute exacerbation(10/06/24 18:20) rn Symptoms: have improved(10/06/24 18:20) rn Bed/Room Type: Standard rn Room Assignment: 223(10/06/24 20:41) cg Diagnosis - Unspecified combined systolic (congestive) and diastolic (congestive) heart rn failure(10/06/24 18:20) - Pleural effusion, not elsewhere classified(10/06/24 18:20) rn - Dyspnea, unspecified(10/06/24 18:20) rn Forms: - Medication Reconciliation Form rn - SBAR form rn - Leadership Thank You Letter rn Signatures: Dispatcher [employer] EDMS Monica Walker Kings Lanier MD MD rn Garcia, Cindy, RN RN Adriana Zarate, RN RN cm10 Oumou Oshea RN kj2 Corrections: (The following items were deleted from the chart) 15:36 15:36 BLOOD CULTURE*+BA.LAB.BRZ ordered. EDMS EDMS 15:36 15:36 CBC+H.LAB.BRZ ordered. EDMS EDMS 15:36 15:36 LIPASE+C.LAB.BRZ ordered. EDMS EDMS 15:36 15:36 MAGNESIUM+C.LAB.BRZ ordered. EDMS EDMS 15:36 15:36 PROBNP+C.LAB.BRZ ordered. EDMS EDMS 15:36 15:36 PROTIME (+INR)+COAG.LAB.BRZ ordered. EDMS EDMS 15:36 15:36 PTT, ACTIVATED+COAG.LAB.BRZ ordered. EDMS EDMS 15:36 15:36 Troponin High Sensitivity+C.LAB.BRZ ordered. EDMS EDMS 15:36 15:36 COMPREHENSIVE METABOLIC PANEL+C.LAB.BRZ ordered. EDMS EDMS 15:36 15:36 LACTATE+C.LAB.BRZ ordered. EDMS EDMS 18:20 18:19 Home rn rn 18:20 18:19 an acute exacerbation rn rn 18:20 18:19 have improved rn rn 18:20 18:19 Stable rn rn 18:20 18:19 Unspecified combined systolic (congestive) and diastolic (congestive) heart rn failure rn 18:20 18:19 Pleural effusion, not elsewhere classified rn rn 18:20 18:19 Dyspnea, unspecified rn rn 20:41 18:20 rn cg
[2024-10-06] MEDS ORDERED: FUROSEMIDE 40 MG/4 ML VIAL ONE (18:46)
--- NOTE | 2024-10-06 20:02 | RAD REPORT ---
EXAM: CT Thorax W/ Con CLINICAL INDICATION: Male, 54 years old. HS MAIN n/a DYSPNEA Bed Name: 12 Y TECHNIQUE: Routine CT scan of the chest with intravenous contrast. One or more of the following dose reduction techniques were used: Automated exposure control, adjustment of the mA and/or kV according to patient size, and/or iterative reconstruction. Unless otherwise specified, incidental fi ndings do not require dedicated imaging follow-up. COMPARISON: Chest radiograph of the same day FINDINGS: LUNGS: Airways are clear. Dependent segmental and subsegmental airspace opacities with volume loss mo st suggestive of atelectasis. Central right upper lobe groundglass opacities, may relate to atelectasis as well. No nodules. PLEURA: Large right and small left pleural effusion. No pneumothorax. MEDIASTINUM AND LYMPH NODES: Opacified pulmonary arteries and their proximal branches show no abnorma l filling defects. Heart is moderately enlarged. No mediastinal mass or fluid collection. Normal size mediastinal, hilar, and axillary lymph nodes. OSSEOUS STRUCTURES AND CHEST WALL: Intact. Left chest wall pacer in place. UPPER ABDOMEN: Moderate free ascites.. Diffuse body wall edema. IMPRESSION: Bilateral pleural effusions, larger on the right. Body wall edema and moderate free ascites, findings which suggest anasarca/fluid overload. Moderate cardiomegaly. Bilateral airspace opacities, most suggestive of atelectasis. Central right upper lobe groundglass op acification, could relate to atelectasis or mild degree of central congestion/edema.
--- NOTE | 2024-10-06 20:02 | P.HP ---
Certification for Inpatient With expected LOS: >2 Midnights Practitioner: I am a practitioner with admitting privileges, knowledge of patient current condition, hospital course, and medical plan of care. Services: Services provided to patient in accordance with Admission requirements found in Title 42 Section 412.3 of the Code of Federal Regulations Patient History Date of Service: 10/07/24 Reason for admission: CHF exacerbation History of Present Illness: 54-year-old male with history of severe congestive heart failure, hypertension, diabetes, history of colon cancer presented to ER with complaints of shortness of breath. The patient has history of congestive heart failure and defibrillator. He was last admitted in July. He was to follow with heart failure clinic at [facility]. The patient reports that his shortness of breath has been progressive. He is short of breath with light activity as well as with laying flat. He also reports increased leg swelling. Denies any chest pain fevers chills or productive cough. Imaging suggestive of a large right pleural effusion. He has received a thoracentesis in the past. He also has known history of chronic kidney disease. PMH HTN -: Systolic Diastolic CHF LVEF 10% -: Moderate Pulmonary HTN -: DM II -: CKD III with Proteinuria (Dr. Leary/ Don) -: CAD/ [place] -: Colon Cancer Stage II -: cardiac stents placement in January -: Bowel Resection -: Ileostomy reversal Allergies No Known Allergies Allergy (Verified 07/20/24 02:30) Home Medications: Aspirin [Aspirin EC 81 MG] 1 tab PO DAILY 09/28/22 Atorvastatin Calcium 20 mg PO DAILY 09/28/22 Metoprolol Succinate 1 tab PO DAILY 07/20/24 Midodrine HCl [Proamatine*] 5 mg PO TID tab 08/01/24 Loperamide [Imodium*] 1 cap PO Q4H PRN 08/03/24 Bumetanide [Bumex] 2 tab PO BIDL 30 Days #120 tab 08/07/24 - Past Medical/Surgical History Diabetic: Yes -: HTN -: Systolic Diastolic CHF LVEF 10% -: Moderate Pulmonary HTN -: DM II -: CKD III with Proteinuria (Dr. Leary/ Don) -: CAD/ [place] -: Colon Cancer Stage II -: cardiac stents placement in January -: Bowel Resection -: Ileostomy reversal - Family History Father -: Hypertension, Diabetes - Social History Alcohol use: No CD- Drugs: No Caffeine use: Yes Review of Systems 10-point ROS is otherwise unremarkable General: Weakness Respiratory: Shortness of Breath Cardiovascular: Orthopnea Physical Examination - Physical Exam General: Alert, Cachectic, Mild distress HEENT: Atraumatic, Normocephalic Respiratory: Crackles/rales Cardiovascular: Regular rate/rhythm, Edema Gastrointestinal: Soft and benign, No tenderness Integumentary: Other - Studies Laboratory Data (last 24 hrs) 10/06/24 10/06/24 10/06/24 16:45 16:45 16:45 WBC 5.60 Hgb 11.8 L Hct 37.7 L Plt Count 153 PT 15.5 H INR 1.40 APTT 38.5 H Sodium 139 Potassium 4.3 BUN 58 H Creatinine 1.38 H Glucose 104 Magnesium 2.0 Total Bilirubin 1.5 H AST 17 ALT 16 Alkaline Phosphatase 238 H Lipase 11 L Microbiology Data (last 24 hrs): 10/06/24 15:55 Nasopharnyx Influenza Type A Antigen Screen - Final 10/06/24 15:55 Nasopharnyx Influenza Type B Antigen Screen - Final Assessment and Plan - Problems (Diagnosis) (1) Pleural effusion Current Visit: Yes Status: Acute (2) Acute on chronic combined systolic and diastolic heart failure Current Visit: No Status: Acute (3) CAD (coronary artery disease) Current Visit: No Status: Acute (4) Impaired mobility Current Visit: No Status: Acute - Plan Acute on chronic systolic heart failure Right pleural effusion Admit patient to the medical floor. Start IV Lasix briefly discussed with binder caser Diagnostic and therapeutic US guided thoracentesis. Cardiology consult. Monitor intake and output. Monitor renal function. await home medication reconciliation CKD IV Lasix Monitor renal function Nephrology consult considered Coronary artery disease -await med rec anticipate restarting metoprolol and Lipitor. -holds ASA Impaired mobility PT consult. DVT prophylaxis: Heparin SQ Advanced directive: Full code - Advance Directives Does patient have a Living Will: Yes Does patient have a Durable POA for Healthcare: No
[2024-10-07 03:07] VITALS: BMI 20.2
[2024-10-07 04:32] LABS: Absolute Basophils 0.1 K/uL (0-0.5); Absolute Eosinophils 0.1 K/uL (0-0.5); Absolute Monocytes 0.5 K/uL (0.1-1.3); Absolute Neutrophil 2.7 K/uL (1.8-8.0); Basophils % 1.7 % (0-1.3); Eosinophils % 2.3 % (0-4.4); Hematocrit 38.1 % (39.6-49.0); Lymphocytes % 23.4 % (15.3-44.8); MCH 29.2 pg (27.0-35.0); MCHC 31.5 g/dL (32.0-36.0); MCV 92.7 fL (80-100); Monocytes % 11.2 % (3.3-12.3); Neutrophils % 61.4 % (41.7-73.7); Nucleated Red Blood Cells % 0.2 % (0-0); Platelets 105 thou/uL (152-406); RBC Red Blood Cell Count 4.11 M/uL (4.33-5.43)
[2024-10-07 04:33] LABS: Red Cell Distribution Width 24.9 % (12.1-15.2)
[2024-10-07 04:48] LABS: AST/SGOT 15 U/L (15-37); Albumin/Globulin Ratio 0.8 (1.1-1.8); Alkaline Phosphatase 213 U/L (45-117); Anion Gap 12.1 mEq/L (5.0-15.0); BUN Blood Urea Nitrogen 58 mg/dL (7-18); Bicarbonate 16 mEq/L (21-32); Bilirubin Total 1.3 mg/dL (0.2-1.0); Globulin 3.9 g/dL (2.3-3.5); Glomerular Filtration Rate 62 ml/min (=/>90); Glucose Level 64 mg/dL (74-106); Potassium 4.1 mEq/L (3.5-5.1); Protein, Total 6.9 g/dL (6.4-8.2); Sodium Level 140 mEq/L (136-145)
[2024-10-07 04:49] LABS: ALT/SGPT < 14 U/L (16-61)
[2024-10-07] MEDS ORDERED: D10W 125 ML IV PRN ×2 (06:14→08:30)
[2024-10-07] MEDS ORDERED: GLUCAGON 1 MG/VIAL IM PRN ×2 (06:14→08:30)
[2024-10-07] MEDS: INSULIN REGULAR (HUMAN) 100 UNIT/ML SQ SCH (07:30)
[2024-10-07] MEDS: PNEUMOCOCCAL VACCINE 0.5 ML IMVAC ONE (09:00)
[2024-10-07] MEDS: ENOXAPARIN 40 MG/0.4 ML SQ SCH (09:00)
[2024-10-07] MEDS: FUROSEMIDE 40 MG/4 ML VIAL IV SCH (09:38)
--- NOTE | 2024-10-07 11:44 | RAD REPORT ---
PROCEDURE: ULTRASOUND GUIDED THORACENTESIS CLINICAL INDICATION: [facility] MAIN right pleural effusion PROCEDURE DETAILS: Consent: Informed consent for the procedure including risks, benefits and alternatives was obtained a nd time-out was performed prior to the procedure. Preparation: The site was prepared and draped using maximal sterile barrier technique including cutan eous antisepsis. Procedure: Initial limited thoracic ultrasound was performed and a large right-sided pleural effusion was seen. A safe window for thoracentesis was identified with ultrasound to cameron a suitable access site. Local anesthesia was administered. The pleural cavity was accessed, and fluid return confirmed position. A 6F Rch-R-Ofwzqkse catheter was placed and fluid was drained. The catheter was removed, and a sterile bandage was applied. The patient then returned to the floor in stable condition. Estimated blood loss: Less than 10 mL. IMPRESSION: SUCCESSFUL RIGHT ultrasound guided thoracentesis, yielding 1500 mL of clear serosanguineous fluid. Additional procedure(s): Limited thoracic ultrasound. PLAN: Aspirated fluid was sent for analysis.
[2024-10-07 12:18] LABS: Appearance TURBID (CLEAR); Body Fluid Source PLEURAL; Body Fluid WBC 333 /mm^3; Color of fluid Red (COLORLESS); Fluid Total Cells Count 100
[2024-10-07 12:19] LABS: Body Fluid Lymphocytes 1 %
--- NOTE | 2024-10-07 14:45 | RAD REPORT ---
EXAMINATION: ONE VIEW CHEST XR CLINICAL INDICATION: Status Post Thorocentesis TECHNIQUE: Frontal chest projection is submitted. Examination is limited by patient positioning and t echnique. COMPARISON: 10/06/2024 FINDINGS: Previously noted right-sided pleural effusion has reduced in volume. Moderate bilateral pulmonary opa cities, greater on the right may represent pulmonary edema or pneumonia. The heart is mildly enlarged. Multilead pacer/defibrillator device. No postprocedure pneumothorax. IMPRESSION: No postprocedure pneumothorax.
--- NOTE | 2024-10-07 15:05 | P.PN ---
Subjective Date of Service: 10/07/24 Chief Complaint: CHF exacerbation Status post right thoracentesis today. Patient states he feels much better. He reports significant improvement in his shortness of breath. He is currently requiring 3 L oxygen by nasal cannula. Physical Examination - Vital Signs Temperature: 97.8 F Blood Pressure: 113/65 Pulse: 84 Respirations: 20 Pulse Ox (%): 95 - Studies Laboratory Data (last 24 hrs) 10/06/24 10/06/24 10/06/24 16:45 16:45 16:45 WBC 5.60 Hgb 11.8 L Hct 37.7 L Plt Count 153 PT 15.5 H INR 1.40 APTT 38.5 H Sodium 139 Potassium 4.3 BUN 58 H Creatinine 1.38 H Glucose 104 Magnesium 2.0 Total Bilirubin 1.5 H AST 17 ALT 16 Alkaline Phosphatase 238 H Lipase 11 L Microbiology Data (last 24 hrs): 10/06/24 15:55 Nasopharnyx Influenza Type A Antigen Screen - Final 10/06/24 15:55 Nasopharnyx Influenza Type B Antigen Screen - Final Assessment And Plan - Plan Physical examination General: Alert and oriented x3, NAD, HEENT: Conjunctiva not pale, anicteric sclera Neck: Supple, no elevated JVD Heart: Heart sounds 1 and 2 normal, regular rhythm, normal rate, 1+ bilateral lower extremity edema. Lungs: Bibasilar crackles, adequate breath sounds bilaterally, no rhonchi Abdomen: Soft, nondistended, nontender, normal bowel sounds. Extremities: No tenderness, no deformity Skin: Normal skin turgor, no rash, no nodules or ulcers. Neuro: No focal motor deficit. Normal speech. Psychiatry: Normal mood, no agitation. Diagnosis Acute respiratory failure with hypoxia Right pleural effusion Acute on chronic systolic heart failure Chronic kidney disease stage III Hypoglycemia Metabolic acidosis Acquired thrombocytopenia. Plan: Acute respiratory failure with hypoxia Acute on chronic systolic heart failure Right pleural effusion Patient with right massive pleural effusion status post thoracentesis. Follow-up pleural fluid studies including pleural fluid culture and cell count. IV Lasix 40 mg twice daily. Monitor intake and output Wean off oxygen as tolerated. Serial chest x-ray. Chronic kidney disease stage III Non anion gap metabolic acidosis Metabolic acidosis probably secondary to kidney disease. Renal function has been stable with diuresis. Continue current dose Lasix Nephrology consult. Coronary artery disease History of multivessel CAD status post PCI History of V. tach/cardiac arrest status post AICD Stable Continue home medications-metoprolol, lipitor Resume aspirin. Impaired mobility PT. Hypoglycemia Probably secondary to n.p.o. status and decreased glycogen stores. Patient given glucagon and IV dextrose Blood sugar is now stable. Diet resumed. Thrombocytopenia Monitor CBC. DVT prophylaxis: SCD Advanced directive: Full code
[2024-10-07] MEDS ORDERED: LOPERAMIDE HCL 2 MG CAPSULE PO PRN (15:19)
[2024-10-07] MEDS: MEXILETINE HCL 150 MG CAP PO SCH (17:21)
[2024-10-07] MEDS: ATORVASTATIN 20 MG TAB PO SCH (20:43)
[2024-10-07] MEDS: SODIUM BICARB 325 MG TAB PO SCH (20:43)
[2024-10-08 06:47] LABS: Specific Gravity 1.015 (1.005-1.030); Sqamous Epithelial <5 /HPF (None Seen); Urine Bacteria <20 /HPF (<20); Urine Bilirubin NEGATIVE (Negative); Urine Blood Negative (Negative); Urine Clarity Extremely Turbid (Clear); Urine Color Light-Yellow (Yellow); Urine Culture Reflex Order REFLEXED; Urine Glucose NEGATIVE (Negative); Urine Ketones NEGATIVE (Negative); Urine Microscopic Reflex YN ORDER UMIC; Urine Mucus Slight /HPF (None Seen); Urine Nitrite NEGATIVE (Negative); Urine Protein TRACE (Negative); Urine Urobilinogen Normal (Normal); Urine WBC 20-50 /HPF (<5)
[2024-10-08] MEDS: SPIRONOLACTONE 25 MG TABLET PO SCH (07:57)
[2024-10-08] MEDS: METOPROLOL XL 25 MG TAB PO SCH (07:58)
[2024-10-08] MEDS: ASPIRIN EC 81 MG TAB PO SCH (07:59)
[2024-10-08] MEDS: TAMSULOSIN 0.4 MG SR CAP PO SCH (09:00)
[2024-10-08] MEDS ORDERED: ONDANSETRON 4 MG/2 ML VIAL IV PRN (14:09)
--- NOTE | 2024-10-08 14:50 | P.PN ---
Subjective Date of Service: 10/08/24 Chief Complaint: CHF exacerbation Patient reports significant improvement in shortness of breath. No issues overnight. He denies any chest pain or palpitation. Physical Examination - Vital Signs Temperature: 97.5 F Blood Pressure: 95/59 Pulse: 93 Respirations: 24 Pulse Ox (%): 96 Assessment And Plan - Plan Physical examination General: Alert and oriented x3, NAD, Neck: Supple, no elevated JVD Heart: Heart sounds 1 and 2 normal, regular rhythm, normal rate, 1+ bilateral lower extremity edema. Lungs: Bibasilar crackles, adequate breath sounds bilaterally, no rhonchi Abdomen: Soft, nondistended, nontender, normal bowel sounds. Extremities: No tenderness, no deformity Skin: Normal skin turgor, no rash, no nodules or ulcers. Neuro: No focal motor deficit. Normal speech. Psychiatry: Normal mood, no agitation. Diagnosis Acute respiratory failure with hypoxia Right pleural effusion Acute on chronic systolic heart failure Chronic kidney disease stage III Hypoglycemia Metabolic acidosis Acquired thrombocytopenia. Plan: Acute respiratory failure with hypoxia Acute on chronic systolic heart failure Right pleural effusion Patient with right massive pleural effusion status post thoracentesis. Pleural fluid chemistry is pending. Pleural fluid is bloodstained, pleural fluid culture has shown no growth to date. IV Lasix transition to oral Bumex Monitor intake and output Patient is tolerating room air with good oxygen saturation Repeat chest x-ray shows no pneumothorax. Chronic kidney disease stage III Non anion gap metabolic acidosis Metabolic acidosis probably secondary to kidney disease. Renal function has been stable with diuresis. Continue current dose Lasix. Resumed home dose sodium bicarb. Monitor renal function. Coronary artery disease History of multivessel CAD status post PCI History of V. tach/cardiac arrest status post AICD Stable Continue home medications-metoprolol, lipitor Continue aspirin. Impaired mobility PT to evaluate. DM type II Hypoglycemia Probably secondary to n.p.o. status and prior insulin use. Status post glucagon and IV dextrose Patient is now hyperglycemic ADA diet Insulin sliding scale. Thrombocytopenia Monitor CBC. DVT prophylaxis: SCD Advanced directive: Full code
[2024-10-08 16:12] LABS: Albumin 2.9 g/dL (3.4-5.0); Anion Gap 11.5 mEq/L (5.0-15.0); Phosphorus 4.2 mg/dL (2.5-4.9); Potassium 4.5 mEq/L (3.5-5.1)
[2024-10-08] MEDS: BUMETANIDE 1 MG TABLET PO SCH (20:11)
[2024-10-09 07:04] VITALS: O2SAT 98
[2024-10-09 07:11] LABS: Absolute Eosinophils 0.1 K/uL (0-0.5); Absolute Lymphocytes (CBC) 1.4 K/uL (0.7-4.9); Absolute Monocytes 0.5 K/uL (0.1-1.3); Absolute Neutrophil 2.8 K/uL (1.8-8.0); Eosinophils % 2.1 % (0-4.4); Hemoglobin 12.4 g/dL (13.6-17.9); Lymphocytes % 28.2 % (15.3-44.8); MCH 30.4 pg (27.0-35.0); MCHC 33.6 g/dL (32.0-36.0); MCV 90.5 fL (80-100); MPV 9.6 fL (7.6-11.3); Monocytes % 10.6 % (3.3-12.3); Neutrophils % 58.1 % (41.7-73.7); Nucleated Red Blood Cells % 0.3 % (0-0); Platelets 117 thou/uL (152-406); RBC Red Blood Cell Count 4.09 M/uL (4.33-5.43); Red Cell Distribution Width 24.7 % (12.1-15.2)
[2024-10-09 07:21] LABS: Anion Gap 10.7 mEq/L (5.0-15.0); Potassium 3.7 mEq/L (3.5-5.1)
--- NOTE | 2024-10-09 11:44 | P.DS ---
Admission Date: 10/06/24 Discharge Date: 10/09/24 Disposition: DC HOME/HOME HEALTH CARE Discharge Condition: FAIR Reason for Admission: CHF exacerbation Brief History of Present Illness: 54-year-old male with history of severe congestive heart failure, hypertension, diabetes, history of colon cancer presented to ER with complaints of shortness of breath. The patient has history of congestive heart failure and defibrillator. He was last admitted in July. He was to follow with heart failure clinic at [facility]. The patient reports that his shortness of breath became progressively worse. He also reported increased leg swelling. Imaging suggestive of a large right pleural effusion. He has received a thoracentesis in the past. Patient was admitted for further management. Hospital Course: Diagnosis Acute respiratory failure with hypoxia Right pleural effusion Acute on chronic systolic heart failure Chronic kidney disease stage III Hypoglycemia Metabolic acidosis Acquired thrombocytopenia. Plan: Acute respiratory failure with hypoxia Acute on chronic systolic heart failure Right pleural effusion Patient with right massive pleural effusion status post thoracentesis. Pleural fluid is bloodstained, pleural fluid culture has shown no growth to date. Patient treated with IV Lasix and transitioned to oral Bumex Patient is tolerating room air with good oxygen saturation Repeat chest x-ray shows no pneumothorax. Chronic kidney disease stage III Non anion gap metabolic acidosis Metabolic acidosis probably secondary to kidney disease. Status post IV Lasix, transition to oral Bumex, Continued home dose sodium bicarb. Renal function was stable with diuresis. Coronary artery disease History of multivessel CAD status post PCI History of V. tach/cardiac arrest status post AICD Stable Continued home medications-metoprolol, lipitor Continued aspirin. Impaired mobility Patient ambulated with a walker in the hallway. He is discharged to home with home health DM type II Hypoglycemia Probably secondary to n.p.o. status and prior insulin use. Patient given a dose of glucagon and IV dextrose. Patient oral intake improved and became hyperglycemic Blood sugar managed with insulin sliding scale. Home diabetic regimen resumed on discharge Thrombocytopenia Stable Vital Signs/Physical Exam: Temp Pulse Resp BP Pulse Ox 97.8 F 80 20 104/77 98 10/09/24 08:00 10/09/24 08:00 10/09/24 08:00 10/09/24 08:00 10/09/24 08:00 General: Alert, In no apparent distress, Oriented x3, Other (In looking) HEENT: Mucous membr. moist/pink, Sclerae nonicteric Neck: Supple, JVD not distended Respiratory: Normal air movement, Crackles/rales (Mild bibasilar crackles) Cardiovascular: No edema, Regular rate/rhythm, Normal S1 S2 Gastrointestinal: Normal bowel sounds, Soft and benign, Non-distended, No tenderness Musculoskeletal: No swelling Integumentary: No rashes, No cyanosis Neurological: Normal speech, Normal strength at 5/5 x4 extr, Cranial nerves 3-12 intact Laboratory Data at Discharge: WBC 4.90 thou/uL (4.3-10.9) 10/09/24 06:42 Hgb 12.4 g/dL (13.6-17.9) L 10/09/24 06:42 Hct 37.0 % (39.6-49.0) L 10/09/24 06:42 Plt Count 117 thou/uL (152-406) L 10/09/24 06:42 PT 15.5 SECONDS (9.4-12.5) H 10/06/24 16:45 INR 1.40 10/06/24 16:45 APTT 38.5 SECONDS (24.3-36.9) H 10/06/24 16:45 Sodium 134 mEq/L (136-145) L 10/09/24 06:42 Potassium 3.7 mEq/L (3.5-5.1) D 10/09/24 06:42 BUN 67 mg/dL (7-18) H 10/09/24 06:42 Creatinine 1.59 mg/dL (0.70-1.30) H 10/09/24 06:42 Glucose 118 mg/dL (74-106) H 10/09/24 06:42 Phosphorus 4.2 mg/dL (2.5-4.9) 10/08/24 15:30 Magnesium 2.0 mg/dL (1.6-2.4) 10/07/24 04:11 Total Bilirubin 1.3 mg/dL (0.2-1.0) H 10/07/24 04:11 AST 15 U/L (15-37) 10/07/24 04:11 ALT < 14 U/L (16-61) L 10/07/24 04:11 Alkaline Phosphatase 213 U/L (45-117) H 10/07/24 04:11 Lipase 11 U/L (13-75) L 10/06/24 16:45 Home Medications: Aspirin [Aspirin EC 81 MG] 1 tab PO DAILY 09/28/22 Atorvastatin Calcium 20 mg PO BEDTIME 09/28/22 Metoprolol Succinate 1 tab PO DAILY 07/20/24 Loperamide [Imodium*] 1 cap PO Q4H PRN 08/03/24 Insulin Glargine,Hum.rec.anlog [Lantus] 8 unit SQ DAILY 10/07/24 Insulin Lispro 3 unit SQ AC 10/07/24 Mexiletine HCl [Mexitil*] 150 mg PO TID 10/07/24 Na Bicarb Tab [Sodium Bicarb 325 MG Tab*] 650 mg PO BID 10/07/24 Spironolactone [Aldactone*] 12.5 mg PO DAILY 10/07/24 Tamsulosin [Flomax*] 0.4 mg PO DAILY 10/07/24 Bumetanide [Bumex*] 1 mg PO BID #60 tab 10/09/24 Cefpodoxime Proxetil [Vantin] 200 mg PO BID #10 tab 10/09/24 New Medications: Bumetanide [Bumex*] 1 mg PO BID #60 tab Cefpodoxime Proxetil [Vantin] 200 mg PO BID #10 tab Diet: AHA Activity: Ad ash Followup: Jayson Johnson MD [ACTIVE - CAN ADMIT] - 1 Week NONE,NONE [Primary Care Provider] - 1 Week Time spent managing pt's care (in minutes): 39
[2024-10-09 13:55] VITALS: BP 109/64; TEMP 97.4
[2024-10-10 08:19] LABS: TOTAL PROTEIN, PLEURAL FLUID 3.1 g/dL
--- NOTE | 2024-10-10 16:01 | EKG ---
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
== END 2024-10-09 13:55 | disposition home health service (06) | DRG 291 ==
LOC: ER 15:22 → 2ND 21:57
PROVIDERS: ADMIT Internal Medicine; ATTEND Internal Medicine
PROC: 0W993ZX Drainage of Right Pleural Cavity, Percutaneous Approach, Diagnostic (ICD-10-PCS; principal; 2024-10-07)
DX: I13.0 Hypertensive heart and chronic kidney disease with heart failure and stage 1 through stage 4 chronic kidney disease, or unspecified chronic kidney disease (principal); I50.23 Acute on chronic systolic (congestive) heart failure; J96.01 Acute respiratory failure with hypoxia; J90 Pleural effusion, not elsewhere classified; R64 Cachexia; E87.21 Acute metabolic acidosis; E11.22 Type 2 diabetes mellitus with diabetic chronic kidney disease; N18.30 Chronic kidney disease, stage 3 unspecified; Z79.4 Long term (current) use of insulin; E11.649 Type 2 diabetes mellitus with hypoglycemia without coma; Z85.038 Personal history of other malignant neoplasm of large intestine; Z95.810 Presence of automatic (implantable) cardiac defibrillator; I25.10 Atherosclerotic heart disease of native coronary artery without angina pectoris; I25.2 Old myocardial infarction; Z98.61 Coronary angioplasty status; Z68.20 Body mass index [BMI] 20.0-20.9, adult; D69.6 Thrombocytopenia, unspecified
CPT/HCPCS: 32555; 36415; 71045; 71260; 80048; 80053; 80069; 81001; 82945; 82947; 83605; 83615; 83690; 83735; 83880; 84157; 84311; 84484; 85025; 85610; 85730; 87040; 87070; 87077; 87086; 87088; 87186; 87804; 87811; 89050; 93005; 96374; 97116; 97161; 97530; 99285; J1940; Q9967

== ENCOUNTER 2024-10-20 13:44 | Emergency (ER) | payer OTHER ==
[2024-10-20] MEDS ORDERED: FUROSEMIDE 40 MG/4 ML VIAL ONE (14:41)
[2024-10-20] MEDS ORDERED: HYDROCODONE/APAP 7.5/325 MG TAB ONE (14:41)
[2024-10-20 15:13] LABS: Absolute Basophils 0.1 K/uL (0-0.5); Absolute Eosinophils 0.1 K/uL (0-0.5); Absolute Lymphocytes (CBC) 1.5 K/uL (0.7-4.9); Absolute Monocytes 0.4 K/uL (0.1-1.3); Absolute Neutrophil 4.2 K/uL (1.8-8.0); Eosinophils % 0.8 % (0-4.4); Hematocrit 42.6 % (39.6-49.0); Hemoglobin 13.6 g/dL (13.6-17.9); Lymphocytes % 24.1 % (15.3-44.8); MCH 29.6 pg (27.0-35.0); MCHC 31.9 g/dL (32.0-36.0); MCV 92.9 fL (80-100); MPV 9.2 fL (7.6-11.3); Monocytes % 6.7 % (3.3-12.3); Neutrophils % 67.4 % (41.7-73.7); Nucleated Red Blood Cells % 0.1 % (0-0); Platelets 144 thou/uL (152-406); RBC Red Blood Cell Count 4.58 M/uL (4.33-5.43); Red Cell Distribution Width 22.6 % (12.1-15.2)
[2024-10-20 15:15] LABS: Anisocytosis 2+; Blood Morphology Comment NOTED (NOT SEEN); Platelet Estimate DECR; White Blood Cell Scan OK (OK)
--- NOTE | 2024-10-20 15:21 | RAD REPORT ---
Procedure: Chest Single View HISTORY: Shortness of breath COMPARISON: October 07, 2024 FINDINGS: Large right and [id number] left pleural effusions. Right atelectasis . Heart is mildly to moderately enlarged. Pacemaker leads in place. IMPRESSION: Large right pleural effusion
--- NOTE | 2024-10-20 15:26 | RAD REPORT ---
EXAMINATION: US bilateral LOWER EXTREMITY VENOUS DOPPLER CLINICAL INDICATION: Leg pain TECHNIQUE: Sonographic evaluation of the veins of the lower extremity bilaterally formed.Grayscale, c olor and spectral analysis performed on all vessels COMPARISON: No prior exam. FINDINGS: The common femoral, superficial femoral, greater saphenous, popliteal and posterior tibial veins bila terally are compressible and demonstrate augmentation. Doppler demonstrates good flow. IMPRESSION: No evidence of deep venous thrombosis involving either lower extremity
--- NOTE | 2024-10-20 15:28 | RAD REPORT ---
Exam:Knee Right 3 View HISTORY: Right knee pain FINDINGS: Small transverse lucency is present within the distal anterior aspect of the patella. This probably d oes not represent an acute fracture given that there is no significant adjacent soft tissue swelling. However, this should be correlated clinically to see if the patient has point tenderness in this region. Small spur extends off of the anterior superior aspect of the patella. Minimal medial joint space narrowing. No dislocation
[2024-10-20 15:32] LABS: Anion Gap 12.4 mEq/L (5.0-15.0); Potassium 4.4 mEq/L (3.5-5.1)
--- NOTE | 2024-10-20 15:55 | EDPHYS ---
Physician Documentation [facility] Name: Royce Farr Age: 54 yrs Sex: Male : 1970 Arrival Date: 10/20/2024 Time: 13:44 Bed 20 Private MD: ED Physician Caio Bello HPI: 10/20 14:29 This 54 yrs old Male presents to ER via EMS with complaints of leg swelling/pain. sb4 14:31 patient reports bilateral lower extremity swelling and pain for the past few days. he sb4 also reports right knee pain that is chronic in nature. he states that he was admitted here about 1 week ago for CHF exacerbation, diuresed with IV lasix, discharged with oral bumex. states that he has been compliant with it. denies any chest pain or shortness of breath. only complains that the swelling in his legs is causing him pain. Historical: - Allergies: 13:54 No Known Allergies; me1 - PMHx: 13:54 Congestive heart failure; Hypertensive disorder; diabetes mellitus; me1 - PSHx: 13:54 Defibrilator; me1 - Immunization history:: Adult Immunizations up to date. - Infectious Disease History:: Denies. - Social history:: Smoking status: Patient/guardian denies using tobacco, but has a distant history of tobacco abuse. ROS: 14:33 Constitutional: Negative for fever, chills, and weight loss, sb4 14:33 Cardiovascular: Positive for edema, 14:33 MS/extremity: Positive for pain, of the right leg and left leg, 14:33 All other systems are negative, Exam: 14:33 Constitutional: This is a well developed, well nourished patient who is awake, alert, sb4 and in no acute distress. Head/Face: Normocephalic, atraumatic. Eyes: Extra-ocular motions intact. Periorbital areas with no swelling, redness, or edema. ENT: Mucous membranes moist. Cardiovascular: Regular rate and rhythm with a normal S1 and S2. Respiratory: No increased work of breathing, no retractions or nasal flaring. Abdomen/GI: Soft, non-tender, no distension. Skin: Warm, dry with normal turgor. Normal color with no rashes, no lesions, and no evidence of cellulitis. 14:33 Cardiovascular: Edema: pedal edema, that is moderate, ankle edema, that is moderate, Vital Signs: 13:52 BP 116 / 94; Pulse 92; Resp 19; Temp 98.4; Pulse Ox 99% on R/A; Weight 55.79 kg; Height me1 5 ft. 6 in. ; Pain 7/10; 14:00 BP 116 / 90; Pulse 90; Resp 16; Pulse Ox 97% ; me1 15:00 BP 123 / 94; Pulse 92; Resp 16; Pulse Ox 95% ; me1 16:00 BP 109 / 79; Pulse 93; Resp 17; Temp 98.4; Pulse Ox 98% ; me1 16:21 Pain 3/10; me1 13:52 Body Mass Index 19.85 (55.79 kg, 167.64 cm) me1 13:52 Pain Scale: Adult me1 16:21 Pain Scale: Adult me1 MDM: 13:53 Medical Screening Exam initiated sb4 15:53 Data reviewed: vital signs, nurses notes, EMS record, lab test result(s), EKG, sb4 radiologic studies, and as a result, I will discharge patient. Counseling: I had a detailed discussion with the patient and/or guardian regarding the historical points, exam findings, and any diagnostic results supporting the discharge/admit diagnosis, the presence of at least one elevated blood pressure reading (>120/80) during this emergency department visit, lab results, radiology results, the need for outpatient follow up, for definitive care, to return to the emergency department if symptoms worsen or persist or if there are any questions or concerns that arise at home. 10/20 14:08 Order name: Basic Metabolic Panel; Complete Time: 15:33 sb4 10/20 14:08 Order name: CBC with Diff; Complete Time: 15:16 sb4 10/20 14:08 Order name: NT PRO-BNP; Complete Time: 15:33 sb4 10/20 14:08 Order name: Troponin HS; Complete Time: 15:33 sb4 10/20 15:16 Order name: CBC Smear Scan; Complete Time: 15:16 EDMS 10/20 14:08 Order name: XRAY Chest (1 view); Complete Time: 15:22 sb4 10/20 14:08 Order name: Knee Right 3 View XRAY; Complete Time: 15:33 sb4 10/20 14:08 Order name: Extrem Venous W Compression Facundo US; Complete Time: 15:26 sb4 10/20 14:08 Order name: IV Saline Lock; Complete Time: 15:06 sb4 10/20 14:08 Order name: Labs collected and sent; Complete Time: 15:06 sb4 10/20 14:08 Order name: O2 Per Protocol; Complete Time: 14:27 sb4 10/20 14:08 Order name: O2 Sat Monitoring; Complete Time: 14:27 sb4 Administered Medications: 15:06 Drug: Hydrocodone-Acetaminophen PO (7.5 mg-325 mg) 1 tabs PO once Route: PO; me1 16:21 Follow up: Pain 3/10 Adult; Response: No adverse reaction; Pain is decreased me1 15:06 Drug: Furosemide IVP 40 mg IVP once; give over 2 minutes Route: IVP; Site: right me1 femoral; 16:20 Follow up: Response: No adverse reaction me1 Disposition: 15:53 Chart complete. Chart complete. sb4 Disposition Summary: 10/20/24 15:54 Discharge Ordered Problem: new sb4 Symptoms: have improved sb4 Condition: Stable sb4 Diagnosis - Localized edema sb4 - Pain in right knee sb4 Followup: sb4 - With: Private Physician - When: 1 week - Reason: Recheck today's complaints, Re-evaluation by your physician Discharge Instructions: - Discharge Summary Sheet sb4 - Peripheral Edema sb4 - Heart Failure Eating Plan sb4 Forms: - Patient Portal Instructions sb4 - Leadership Thank You Letter sb4 Prescriptions: - gabapentin 100 mg Oral capsule - take 2 capsule ORAL route 2 times per day As needed; 20 capsule; Refills: 0, sb4 Product Selection Permitted - Colace 100 mg Oral capsule - take 1 tablet ORAL route once daily; 14 tablet; Refills: 0, Product Selection sb4 Permitted Addendum: 10/23/2024 12:43 Co-signature as Attending Physician, Caio Bello MD I agree with the assessment and c flannery plan of care. Signatures: Dispatcher [employer] Caio Dior MD MD cha Brown, Sophia, PA-C PA-C sb4 Loan Ho, RN RN me1 Corrections: (The following items were deleted from the chart) 10/20 14:09 14:08 BASIC METABOLIC PANEL+C.LAB.BRZ ordered. EDSD EDSD 14:09 14:09 CBC+H.LAB.BRZ ordered. EDMS EDMS 14: 14:09 PROBNP+C.LAB.BRZ ordered. EDMS EDMS 14: 14:09 Troponin High Sensitivity+C.LAB.BRZ ordered. EDMS EDMS 14: 14:09 Chest Single View+RAD.RAD.BRZ ordered. EDMS EDMS 14: 14:09 Knee Right 3 View+RAD.RAD.BRZ ordered. EDMS EDMS 14: 14:09 Extrem Venous W Compression Facundo+US.RAD.BRZ ordered. EDMS EDMS 16: 14:08 Cardiac monitoring ordered. sb4 sb4 16: 14:08 EKG - Nurse/Tech ordered. sb4 sb4
--- NOTE | 2024-10-20 15:55 | ER ---
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 Did not hit head. c/o right knee pain x 1 week. Pitting edema to BLE and sob w/exertion. Coronavirus screen: Vaccine status: Patient reports receiving the 2nd dose of the covid vaccine. Ebola Screen: No symptoms or risks identified at this time. Initial Sepsis Screen: Does the patient meet any 2 criteria? No. Patient's initial sepsis screen is negative. Does the patient have a suspected source of infection? No. Patient's initial sepsis screen is negative. Risk Assessment: Do you want to hurt yourself or someone else? Patient reports no desire to harm self or others. Onset of symptoms is unknown. 13:52 Method Of Arrival: EMS: [facility] 13:52 Acuity: SANDRO 3 me1 Triage Assessment: 13:54 General: Appears uncomfortable, Behavior is calm, cooperative, appropriate for age. me1 Pain: Complains of pain in right knee Pain does not radiate. Pain currently is 7 out of 10 on a pain scale. Quality of pain is described as aching, Pain began one week ago Is continuous. EENT: No signs and/or symptoms were reported regarding the EENT system. Neuro: Level of Consciousness is awake, alert, obeys commands, Oriented to person, place, time, situation, Appropriate for age. Cardiovascular: Patient's skin is warm and dry. Respiratory: Airway is patent Trachea midline Respiratory effort is even, unlabored, Respiratory pattern is regular, symmetrical. GI: No signs and/or symptoms were reported involving the gastrointestinal system. : No signs and/or symptoms were reported regarding the genitourinary system. Derm: Skin is intact, is healthy with good turgor, Skin is pink, warm \T\ dry. Musculoskeletal: Reports pain in right knee. 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 Historical: - Allergies: 13:54 No Known Allergies; me1 - PMHx: 13:54 Congestive heart failure; Hypertensive disorder; diabetes mellitus; me1 - PSHx: 13:54 Defibrilator; me1 - Immunization history:: Adult Immunizations up to date. - Infectious Disease History:: Denies. - Social history:: Smoking status: Patient/guardian denies using tobacco, but has a distant history of tobacco abuse. Screenin:12 [facility] ED Fall Risk Assessment (Adult) History of falling in the last 3 months, me1 including since admission Yes- single mechanical fall (1 pt) Confusion or Disorientation No (0 pts) Intoxicated or Sedated No (0 pts) Impaired Gait Yes (1 pt) Mobility Assist Device Used Yes (1 pt) Altered Elimination No (0 pt) Score/Fall Risk Level 0 - 2 = Low Risk Maintained a safe environment, Provided non-skid footwear, Hourly rounding (assess needs \T\ fall precautionary measures) done. Abuse screen: Denies threats or abuse. Nutritional screening: No deficits noted. Tuberculosis screening: No symptoms or risk factors identified. Assessment: 16:19 General: See triage assessment.. me1 Vital Signs: 13:52 BP 116 / 94; Pulse 92; Resp 19; Temp 98.4; Pulse Ox 99% on R/A; Weight 55.79 kg; Height me1 5 ft. 6 in. ; Pain 7/10; 14:00 BP 116 / 90; Pulse 90; Resp 16; Pulse Ox 97% ; me1 15:00 BP 123 / 94; Pulse 92; Resp 16; Pulse Ox 95% ; me1 16:00 BP 109 / 79; Pulse 93; Resp 17; Temp 98.4; Pulse Ox 98% ; me1 16:21 Pain 3/10; me1 13:52 Body Mass Index 19.85 (55.79 kg, 167.64 cm) me1 13:52 Pain Scale: Adult me1 16:21 Pain Scale: Adult me1 ED Course: 13:52 Patient arrived in ED. me1 13:53 Sherrie Alves PA-C is PHCP. sb4 13:53 Caio Bello MD is Attending Physician. sb4 13:54 Triage completed. me1 13:54 Arm band placed on Patient placed in an exam room. me1 14:10 Loan Ho, NEY is Primary Nurse. me1 14:12 Patient has correct armband on for positive identification. Bed in low position. Call me1 light in reach. Side rails up X2. Provided Education on: POC. Verbalized understanding.. Client placed on continuous cardiac and pulse oximetry monitoring. NIBP monitoring applied. Pulse ox on. NIBP on. 14:12 No provider procedures requiring assistance completed. me1 14:31 Extrem Venous W Compression Facundo US In Process Unspecified. EDMS 14:59 XRAY Chest (1 view) In Process Unspecified. EDMS 14:59 Knee Right 3 View XRAY In Process Unspecified. EDMS 15:05 Initial lab(s) drawn, by me, sent to lab. Inserted saline lock: 22 gauge in right me1 forearm, using aseptic technique. 15:06 Basic Metabolic Panel Sent. me1 15:06 CBC with Diff Sent. me1 15:06 NT PRO-BNP Sent. me1 15:06 Troponin HS Sent. me1 16:28 IV discontinued, intact, bleeding controlled, No redness/swelling at site. Pressure me1 dressing applied. Administered Medications: 15:06 Drug: Hydrocodone-Acetaminophen PO (7.5 mg-325 mg) 1 tabs PO once Route: PO; me1 16:21 Follow up: Pain 3/10 Adult; Response: No adverse reaction; Pain is decreased me1 15:06 Drug: Furosemide IVP 40 mg IVP once; give over 2 minutes Route: IVP; Site: right me1 femoral; 16:20 Follow up: Response: No adverse reaction me1 Medication: 16:19 VIS not applicable for this client. me1 Outcome: 15:54 Discharge ordered by . gerardo 16:28 Discharged to home via wheelchair, me1 16:28 Condition: stable 16:28 Discharge instructions given to patient, Instructed on discharge instructions, follow up and referral plans. medication usage, Demonstrated understanding of instructions, follow-up care, medications, Prescriptions given X 2, 16:28 Patient left the ED. me1 Signatures: Dispatcher [employer] Sherrie Lai PA-C PA-C sb4 Eddleman, Michelle RN RN me1 Corrections: (The following items were deleted from the chart) 16:21 16:20 Response: No adverse reaction; Pain is decreased me1 me1
[2024-10-20 16:53] VITALS: TEMP 98.4
[2024-10-20 17:06] VITALS: BP 109/79; O2SAT 98
== END 2024-10-20 16:28 | disposition home or self-care (01) ==
LOC: ER 13:44
DX: R60.0 Localized edema (principal); M25.561 Pain in right knee; E11.9 Type 2 diabetes mellitus without complications; I10 Essential (primary) hypertension; Z95.810 Presence of automatic (implantable) cardiac defibrillator
CPT/HCPCS: 85025; 80048; 36415; 84484; 83880; 71045; 73562; 93970; 96374; 99285; J1940

== ENCOUNTER 2024-10-29 14:49 | Emergency (ER) | payer OTHER ==
[2024-10-29 16:23] LABS: Absolute Lymphocytes (CBC) 0.7 K/uL (0.7-4.9); Absolute Monocytes 0.5 K/uL (0.1-1.3); Absolute Neutrophil 10.5 K/uL (1.8-8.0); Basophils % 0.3 % (0-1.3); Eosinophils % 0.1 % (0-4.4); Hematocrit 44.2 % (39.6-49.0); Hemoglobin 14.2 g/dL (13.6-17.9); MCH 30.2 pg (27.0-35.0); MCHC 32.2 g/dL (32.0-36.0); MPV 9.6 fL (7.6-11.3); Monocytes % 4.2 % (3.3-12.3); Neutrophils % 89.4 % (41.7-73.7); Nucleated Red Blood Cells % 0.4 % (0-0); Platelets 169 thou/uL (152-406); Red Cell Distribution Width 21.5 % (12.1-15.2)
[2024-10-29 16:27] LABS: Specific Gravity 1.018 (1.005-1.030); Sqamous Epithelial <5 /HPF (None Seen); Urine Bacteria 20-50 /HPF (<20); Urine Bilirubin NEGATIVE (Negative); Urine Blood 1+ (Negative); Urine Clarity Extremely Turbid (Clear); Urine Color Yellow (Yellow); Urine Culture Reflex Order REFLEXED; Urine Glucose NEGATIVE (Negative); Urine Ketones NEGATIVE (Negative); Urine Microscopic Reflex YN ORDER UMIC; Urine Mucus Slight /HPF (None Seen); Urine Nitrite NEGATIVE (Negative); Urine Protein 1+ (Negative); Urine RBC <5 /HPF (None Seen); Urine Urobilinogen Normal (Normal); Urine WBC >50 /HPF (<5); Urine WBC Clump Occasional /HPF (None Seen)
[2024-10-29 16:31] LABS: PT Prothrombin Time 15.7 SECONDS (9.4-12.5); PTT, Activated Partial Thromb 36.5 SECONDS (24.3-36.9); Protime INR 1.42
--- NOTE | 2024-10-29 16:36 | RAD REPORT ---
EXAMINATION: ONE VIEW CHEST XR CLINICAL INDICATION: DYSPNEA TECHNIQUE: Frontal chest projection is submitted. Examination is limited by patient positioning and t echnique. COMPARISON: 10/25/2024 FINDINGS: Near complete right hemithorax opacification is seen. Likely a combination of large right pleural eff usion and atelectatic lung. Left lung demonstrates mild linear opacity in the left base, incompletely assessed on single frontal projection. The heart is probably enlarged. Pacer/defibrillat or device present.
[2024-10-29 16:48] LABS: Albumin 3.1 g/dL (3.4-5.0); Albumin/Globulin Ratio 0.8 (1.1-1.8); Anion Gap 11.3 mEq/L (5.0-15.0); Bilirubin Total 1.4 mg/dL (0.2-1.0); Potassium 4.3 mEq/L (3.5-5.1); Protein, Total 7.1 g/dL (6.4-8.2); Troponin High Sensitivity 15.3 pg/mL (<58.9)
[2024-10-29 17:01] LABS: Blood Morphology Comment NOT SEEN (NOT SEEN); Platelet Estimate ADEQ; White Blood Cell Scan DIFF (OK)
[2024-10-29] MEDS ORDERED: Levofloxacin500mg IV 500 MG/100 ML BAG IV ONE (17:17)
[2024-10-29] MEDS ORDERED: PIPERACIL/TAZO 3.375 GM VIAL IV ONE (18:26)
[2024-10-29] MEDS ORDERED: NA CHLORIDE 0.9% 100 ML ONE (18:27)
[2024-10-29] MEDS ORDERED: METOPROLOL TARTRATE 5 MG/5 ML INJ IV ONE (18:29)
--- NOTE | 2024-10-29 18:49 | ER ---
Nurse's Notes [facility] Name: Royce Farr Age: 54 yrs Sex: Male : 1970 Arrival Date: 10/29/2024 Time: 14:49 Bed 13 Private MD: Diagnosis: Pleural effusion, not elsewhere classified;UTI/ Urinary tract infection, site not specified;Hypertension secondary to other renal disorders;Diastolic (congestive) heart failure;Hypothermia, initial encounter Presentation: 10/29 15:06 Chief complaint: Patient states: Patient states he has been having generalized weakness le1 and has not taken his medication today due to it. States he has also been experiencing bilateral leg tightness for 1 week. Coronavirus screen: Vaccine status: Patient reports receiving the 2nd dose of the covid vaccine. Client denies travel out of the [place] in the last 14 days. At this time, the client does not indicate any symptoms associated with coronavirus-19. Ebola Screen: Patient negative for fever greater than or equal to 101.5 degrees Fahrenheit, and additional compatible Ebola Virus Disease symptoms Patient denies exposure to infectious person. Patient denies travel to an Ebola-affected area in the 21 days before illness onset. No symptoms or risks identified at this time. Initial Sepsis Screen: Does the patient meet any 2 criteria? RR > 20 per min. Temp <36.0*C (96.8*F)) or > 38.3*C (100.9*F). Yes Does the patient have a suspected source of infection? No. Patient's initial sepsis screen is negative. Risk Assessment: Do you want to hurt yourself or someone else? Patient reports no desire to harm self or others. Onset of symptoms was October 29, 2024. 15:06 Method Of Arrival: EMS: [facility] le1 15:06 Acuity: SANDRO 2 le1 Triage Assessment: 15:11 General: Appears uncomfortable, unkempt, malnourished, Behavior is calm, cooperative. le1 Pain: Complains of pain in right leg and left leg Pain currently is 7 out of 10 on a pain scale. Quality of pain is described as aching. EENT: No deficits noted. Neuro: No deficits noted. Cardiovascular: Defib present. Respiratory: Airway is patent Respiratory effort is labored, Respiratory pattern is regular. GI: No deficits noted. : No deficits noted. Derm: Skin is clammy, diaphoretic. Historical: - Allergies: 18:44 No Known Allergies; jl7 - PMHx: 15:10 Congestive heart failure; diabetes mellitus; Hypertensive disorder; le1 - PSHx: 15:10 Defibrilator; le1 - Immunization history:: Adult Immunizations up to date, Client reports receiving the 2nd dose of the Covid vaccine, Flu vaccine is up to date. - Infectious Disease History:: Denies. - Social history:: Smoking status: Patient denies any tobacco usage or history of. Patient/guardian denies using alcohol, street drugs, IV drugs, tobacco products. Screenin:16 [facility] ED Fall Risk Assessment (Adult) History of falling in the last 3 months, le1 including since admission No falls in past 3 months (0 pts) Confusion or Disorientation No (0 pts) Intoxicated or Sedated No (0 pts) Impaired Gait Yes (1 pt) Mobility Assist Device Used No (0 pt) Altered Elimination No (0 pt) Score/Fall Risk Level 0 - 2 = Low Risk Oriented to surroundings, Maintained a safe environment, Educated pt \T\ family on fall prevention, incl call for assistance when getting out of bed, Assessed \T\ reinforced patient's understanding of fall precautions, Hourly rounding (assess needs \T\ fall precautionary measures) done, Used ambulatory aids as needed (educated on \T\ assisted with). Abuse screen: Denies threats or abuse. Denies injuries from another. Nutritional screening: No deficits noted. Tuberculosis screening: No symptoms or risk factors identified. Assessment: 15:15 General: Triage assessment. le1 22:31 Derm:. Derm: Skin is thin, Wound noted buttocks Wound is pressure wound to sacrum. le1 Vital Signs: 15:06 BP 113 / 86; Pulse 93; Resp 19; Temp 94.1(A); Pulse Ox 96% on 3 lpm NC; Pain 7/10; le1 15:14 BP 129 / 90; Pulse 94; Resp 14; Pulse Ox 95% on 3 lpm NC; Pain 7/10; le1 17:25 BP 109 / 86; Pulse 92; Resp 31; Temp 93(A); Pulse Ox 98% on R/A; Pain 0/10; le1 18:10 BP 187 / 72; Pulse 92; Resp 18; Pulse Ox 99% on 3 lpm NC; Pain 0/10; le1 18:45 BP 104 / 74; Pulse 91; Resp 20; Pulse Ox 100% on 3 lpm NC; Pain 0/10; le1 19:54 BP 111 / 92; Pulse 88; Resp 34; Pulse Ox 100% on R/A; Pain 0/10; le1 21:10 BP 99 / 82; Pulse 86; Resp 24; Pulse Ox 100% on 3 lpm NC; Pain 0/10; le1 22:12 BP 98 / 78; Pulse 87; Resp 18; Temp 97.4(O); Pulse Ox 96% on 3 lpm NC; Pain 0/10; le1 22:46 BP 108 / 78; Pulse 88; Resp 29; Temp 97.4(O); Pulse Ox 97% on 3 lpm NC; Pain 6/10; le1 15:06 Pain Scale: Adult le1 15:14 Pain Scale: Adult le1 17:25 Pain Scale: Adult le1 18:10 Pain Scale: Adult le1 18:45 Pain Scale: Adult le1 19:54 Pain Scale: Adult le1 21:10 Pain Scale: Adult le1 22:12 Pain Scale: Adult le1 22:46 Pain Scale: Adult le1 ED Course: 15:06 Patient arrived in ED. le1 15:06 Ramin Uribe, RN is Primary Nurse. le1 15:10 Triage completed. le1 15:15 Michael Cleaning MD is Attending Physician. bo1 15:15 Arm band placed on right wrist. le1 15:16 Patient has correct armband on for positive identification. Bed in low position. Call le1 light in reach. Side rails up X2. Provided Education on: Informed patient to use call light if needing assistance. 16:09 Initial lab(s) drawn, by me, sent to lab. First set of blood cultures drawn by me, le1 Second set of blood cultures drawn by me, Urine collected: clean catch specimen, clear, Amount Voided: 50mL EKG done, by ED staff, reviewed by Michael Cleaning MD. Oxygen administration via nasal cannula \T\ 3L/min Response to oxygen therapy: symptoms improved. 16:25 Inserted saline lock: 20 gauge in right antecubital area, using aseptic technique. le1 Blood collected. Flushed with 10 mL NS. 16:30 Chest Single View XRAY In Process Unspecified. EDMS 17:26 Warm blanket given. Patient wrapped in three warm blankets. le1 19:29 Patient placed under blanket warmer at Dr Black harris. le1 20:15 Attending Physician role handed off by Michael Cleaning MD sp4 20:15 Austyn Eastman MD is Attending Physician. sp4 20:27 Attending Physician role handed off by Austyn Eastman MD bo1 20:27 Michael Cleaning MD is Attending Physician. bo1 22:43 Inserted saline lock: 22 gauge in left hand, using aseptic technique. Flushed with 10 oe mL NS. 22:51 Attending Physician role handed off by Michael Cleaning MD sp4 22:51 Austyn Eastman MD is Attending Physician. sp4 22:58 No provider procedures requiring assistance completed. Patient transferred, IV remains le1 in place. Administered Medications: 17:23 Drug: levofloxacin IVPB 500 mg 100 ml IVPB once over 60 mins Volume: 100 ml; Route: le1 IVPB; Infused Over: 60 mins; Site: right antecubital; 18:24 Follow up: Response: No adverse reaction; IV Status: Completed infusion le1 18:28 Drug: Piperacillin-Tazobactam IVPB 3.375 grams IVPB once over 60 mins; (mix in NS 100 le1 mL) Route: IVPB; Infused Over: 60 mins; Site: right antecubital; 19:55 Follow up: Response: No adverse reaction; IV Status: Completed infusion le1 21:11 Follow up: Response: No adverse reaction; IV Status: Completed infusion le1 18:45 Not Given (Hemodynamic Parameters): metoprolol5 mg IVP every 5 minutes; Hold for SBP < le1 100 or HR < 60. x3 21:05 Drug: Albumin IVPB 25 grams 100 ml IVPB once; (Note: Albumin 25% concentration) Volume: le1 100 ml; Route: IVPB; Site: right antecubital; 22:35 Follow up: Response: No adverse reaction; IV Status: Completed infusion le1 21:06 Drug: fentaNYL (PF) IVP 25 mcg IVP once Route: IVP; Site: right antecubital; le1 21:10 Follow up: Response: Pain is decreased le1 21:06 Drug: Ondansetron IVP 4 mg IVP once; over 2 minutes Route: IVP; Site: right antecubital;le1 21:11 Follow up: Response: No adverse reaction; Nausea is decreased le1 22:59 Drug: fentaNYL (PF) IVP 25 mcg IVP once Route: IVP; Site: right antecubital; le1 22:59 Follow up: Response: Medication Administered at Departure le1 Medication: 22:58 VIS not applicable for this client. le1 Outcome: 18:48 ER care complete, transfer ordered by . bo1 22:57 Transferred by ground EMS to [facility], Transfer form completed. le1 X-rays sent w/ patient. Note: Transported with [facility] 22:57 Condition: improved 22:57 Instructed on the need for admit, Demonstrated understanding of instructions, 22:59 Patient left the ED. le1 Addendum: 10/31/2024 07:40 Addendum: Culture Results: Positive urine culture. faxed positive culture report to shazia Gentile Rn at [facility] ICU at [phone]. Signatures: Dispatcher [employer] EDMS Dani Park Jahala, RN RN jl7 Lyn De La Fuente Sergey, MD MD sp4 Michael Cleaning MD MD bo1 Ramin Uribe, RN RN le1
--- NOTE | 2024-10-29 18:49 | EDPHYS ---
Physician Documentation [facility] Name: Royce Farr Age: 54 yrs Sex: Male : 1970 Arrival Date: 10/29/2024 Time: 14:49 Bed 13 Private MD: ED Physician Austyn Eastman HPI: 10/29 15:27 This 54 yrs old Male presents to ER via EMS with complaints of General Weakness. bo1 15:27 Weak to the knees, pt slipped and called EMS for lift assist and EMS recommended that bo1 he be seen in the ER. Onset: The symptoms/episode began/occurred gradually. Severity of symptoms: At their worst the symptoms were moderate. Pt has been feeling weak and getting weaker for the last 4-5 days. Historical: - Allergies: 18:44 No Known Allergies; jl7 - PMHx: 15:10 Congestive heart failure; diabetes mellitus; Hypertensive disorder; le1 - PSHx: 15:10 Defibrilator; le1 - Immunization history:: Adult Immunizations up to date, Client reports receiving the 2nd dose of the Covid vaccine, Flu vaccine is up to date. - Infectious Disease History:: Denies. - Social history:: Smoking status: Patient denies any tobacco usage or history of. Patient/guardian denies using alcohol, street drugs, IV drugs, tobacco products. ROS: 18:52 Constitutional: Negative for fever, chills, and weight loss bo1 18:52 Constitutional: Positive for Weakness, 18:52 Cardiovascular: Negative for chest pain, 18:52 Respiratory: Positive for shortness of breath, 18:52 MS/extremity: Positive for swelling, of the right leg and left leg, 18:52 Skin: Negative for rash, 18:52 All other systems are negative, Exam: 18:06 Constitutional: This is an awake, alert pt, in acute distress. He looks ill, with bo1 pallor to the face 18:06 Constitutional: The patient appears alert, awake, frail, in obvious distress, moderately distressed, obviously ill, pale, Cold to the touch 18:06 Head/face: Noted is Pallor and light conjunctiva bilaterally. 18:06 Eyes: Conjunctiva: pale, 18:06 Neck: External neck: is normal, Lymph nodes: no appreciated lymphadenopathy, 18:06 Chest/axilla: Pacemaker in the left chest. 18:06 Cardiovascular: Rate: normal, Rhythm: regular, Pulses: no pulse deficits are appreciated, 18:06 Respiratory: mild respiratory distress is noted, Respirations: labored breathing, tachypnea, that is mild, Rate \\T\\ 25 with 3.5 litres NC, 18:06 Respiratory: Breath sounds: decreased breath sounds, that are moderate, Minimal BS on the right, scattered on the left, 18:06 Abdomen/GI: Multiple scars, somewhat "firm" or guarding, 18:06 Musculoskeletal/extremity: Edema to the LE-bilaterally with erythema to the elbows and knees. 18:06 Skin: Cold to touch and pale overall. 18:06 Neuro: Orientation: is normal, appropriate for stated age, Mentation: is normal, appropriate for stated age, 19:32 ECG was reviewed by the Attending Physician. bo1 Vital Signs: 15:06 BP 113 / 86; Pulse 93; Resp 19; Temp 94.1(A); Pulse Ox 96% on 3 lpm NC; Pain 7/10; le1 15:14 BP 129 / 90; Pulse 94; Resp 14; Pulse Ox 95% on 3 lpm NC; Pain 7/10; le1 17:25 BP 109 / 86; Pulse 92; Resp 31; Temp 93(A); Pulse Ox 98% on R/A; Pain 0/10; le1 18:10 BP 187 / 72; Pulse 92; Resp 18; Pulse Ox 99% on 3 lpm NC; Pain 0/10; le1 18:45 BP 104 / 74; Pulse 91; Resp 20; Pulse Ox 100% on 3 lpm NC; Pain 0/10; le1 19:54 BP 111 / 92; Pulse 88; Resp 34; Pulse Ox 100% on R/A; Pain 0/10; le1 21:10 BP 99 / 82; Pulse 86; Resp 24; Pulse Ox 100% on 3 lpm NC; Pain 0/10; le1 22:12 BP 98 / 78; Pulse 87; Resp 18; Temp 97.4(O); Pulse Ox 96% on 3 lpm NC; Pain 0/10; le1 22:46 BP 108 / 78; Pulse 88; Resp 29; Temp 97.4(O); Pulse Ox 97% on 3 lpm NC; Pain 6/10; le1 15:06 Pain Scale: Adult le1 15:14 Pain Scale: Adult le1 17:25 Pain Scale: Adult le1 18:10 Pain Scale: Adult le1 18:45 Pain Scale: Adult le1 19:54 Pain Scale: Adult le1 21:10 Pain Scale: Adult le1 22:12 Pain Scale: Adult le1 22:46 Pain Scale: Adult le1 MDM: 15:15 Medical Screening Exam initiated bo1 18:00 Differential Diagnosis sepsis, CHF exacerbation, hypothermia, Weakness UTI. Data bo1 reviewed: vital signs, lab test result(s), EKG, radiologic studies, plain films. Consideration of Admission/Observation Patient was admitted/placed on observation. Dr Tyrell PEÑA. Management of patient was discussed with the following: Hospitalist: Dr Tyrell PEÑA. Automatic Beam Warper Tender: Dr Drew PEÑA. Response to treatment: the patient's symptoms have mildly improved after treatment, Pt has no hypotension or elevation of the lactic acid. With history of CHF, pt cannot tolerate excess IVF. Antibiotics via IV have been given. ED course: Pt requires hospitalization for stabilization. 20:02 Special discussion: Mother is now and gives additional history that the pt Coded 2 bo1 years ago and now has a defibrillator in place (1 yo). Pt was found to have colon CA and had a transitional colostomy bag. The mother was unable to lift him this afternoon due to her age, etc.. 20:21 ED course: Discussed with [facility] transfer center - Dr Tristian Lin MD accepting to the [facility] ICU . 10/29 15:30 Order name: Blood Culture Adult (2) [facility] 10/29 15:30 Order name: CBC with Diff; Complete Time: 17:04 [facility] 10/29 15:30 Order name: CMP; Complete Time: 16:56 [facility] 10/29 15:30 Order name: Lactate w/ 2H reflex if indic.; Complete Time: 17:04 [facility] 10/29 15:30 Order name: Protime (+inr); Complete Time: 16:36 [facility] 10/29 15:30 Order name: Ptt, Activated; Complete Time: 16:36 [facility] 10/29 15:30 Order name: Urinalysis w/ reflexes; Complete Time: 16:36 [facility] 10/29 15:30 Order name: NT PRO-BNP; Complete Time: 16:56 [facility] 10/29 15:30 Order name: Troponin HS; Complete Time: 16:56 bo 10/29 16:29 Order name: Glucose, Ancillary Testing; Complete Time: 16:36 EDPA 10/29 16:38 Order name: Urine Culture EDPA 10/29 17:02 Order name: CBC Smear Scan; Complete Time: 17:04 EDPA 10/29 15:30 Order name: Chest Single View XRAY; Complete Time: 16:42 bo1 10/29 15:30 Order name: Accucheck; Complete Time: 16:25 bo10/29 15:30 Order name: Cardiac monitoring; Complete Time: 16:25 bo10/29 15:30 Order name: EKG - Nurse/Tech; Complete Time: 16:25 bo10/29 15:30 Order name: IV Saline Lock - Large Bore; Complete Time: 16:25 bo10/29 15:30 Order name: Labs collected and sent; Complete Time: 16:25 10/29 15:30 Order name: O2 Per Protocol; Complete Time: 16:25 10/29 15:30 Order name: O2 Sat Monitoring; Complete Time: 16:25 10/29 15:30 Order name: Vital Signs; Complete Time: 16:25 bo1 EC:32 Rate is 93 beats/min. Rhythm is regular. QRS [place] is Normal. NE interval is normal. QRS bo1 interval is normal. QT interval is normal. Q waves are Present in lead V5. T waves are Normal. T waves are Inverted in leads V2, V3. No ST changes noted. Clinical impression: Normal ECG and RBBB. Interpreted by me. Reviewed by me. Administered Medications: 17:23 Drug: levofloxacin IVPB 500 mg 100 ml IVPB once over 60 mins Volume: 100 ml; Route: le1 IVPB; Infused Over: 60 mins; Site: right antecubital; 18:24 Follow up: Response: No adverse reaction; IV Status: Completed infusion le 18:28 Drug: Piperacillin-Tazobactam IVPB 3.375 grams IVPB once over 60 mins; (mix in NS 100 le1 mL) Route: IVPB; Infused Over: 60 mins; Site: right antecubital; 19:55 Follow up: Response: No adverse reaction; IV Status: Completed infusion le 21:11 Follow up: Response: No adverse reaction; IV Status: Completed infusion le1 18:45 Not Given (Hemodynamic Parameters): metoprolol5 mg IVP every 5 minutes; Hold for SBP < le1 100 or HR < 60. x3 21:05 Drug: Albumin IVPB 25 grams 100 ml IVPB once; (Note: Albumin 25% concentration) Volume: le1 100 ml; Route: IVPB; Site: right antecubital; 22:35 Follow up: Response: No adverse reaction; IV Status: Completed infusion le1 21:06 Drug: fentaNYL (PF) IVP 25 mcg IVP once Route: IVP; Site: right antecubital; le1 21:10 Follow up: Response: Pain is decreased le1 21:06 Drug: Ondansetron IVP 4 mg IVP once; over 2 minutes Route: IVP; Site: right antecubital;le1 21:11 Follow up: Response: No adverse reaction; Nausea is decreased le1 22:59 Drug: fentaNYL (PF) IVP 25 mcg IVP once Route: IVP; Site: right antecubital; le1 22:59 Follow up: Response: Medication Administered at Departure le1 Disposition Summary: 10/29/24 18:48 Transfer Ordered Notes: Transfer Location: Other [facility] bo1 Reason: Higher level of care bo1 Condition: Serious bo1 Problem: new bo1 Symptoms: are unchanged bo1 Accepting Physician: Dr Tristian Lin MD at [facility] DT - ICU Bed(10/29/24 22:59) le1 Diagnosis - Pleural effusion, not elsewhere classified bo1 - UTI/ Urinary tract infection, site not specified bo1 - Hypertension secondary to other renal disorders bo1 - Diastolic (congestive) heart failure bo1 - Hypothermia, initial encounter bo1 Forms: - Medication Reconciliation Form bo1 - SBAR form bo1 Signatures: Dispatcher [employer] EDMS Jacki Redman RN RN [id number] Austyn Eastman MD MD sp4 Michael Cleaning MD MD bo1 Ramin Uribe RN RN le1 Corrections: (The following items were deleted from the chart) 15:30 15:30 BLOOD CULTURE*+BA.LAB.BRZ ordered. EDMS EDMS 15:30 15:30 CBC+H.LAB.BRZ ordered. EDMS EDMS 15:30 15:30 COMPREHENSIVE METABOLIC PANEL+C.LAB.BRZ ordered. EDMS EDMS 15:30 15:30 LACTATE+C.LAB.BRZ ordered. EDMS EDMS 15:30 15:30 PROTIME (+INR)+COAG.LAB.BRZ ordered. EDMS EDMS 15:30 15:30 PTT, ACTIVATED+COAG.LAB.BRZ ordered. EDMS EDMS 15:30 15:30 Urinalysis+U.LAB.BRZ ordered. EDMS EDMS 15:30 15:30 PROBNP+C.LAB.BRZ ordered. EDMS EDMS 15:30 15:30 Troponin High Sensitivity+C.LAB.BRZ ordered. EDMS EDMS 15:30 15:30 Chest Single View+RAD.RAD.BRZ ordered. EDMS EDMS 18:50 18:48 MD at [place] [address] 20:21 18:50 MD at [place] [address] 22:59 20:21 Dr Tristian Lin MD at [facility] DT - ICU Bed [place] [address]
[2024-10-29] MEDS ORDERED: FENTANYL CITR 100 MCG/2 ML ONE ×2 (20:56→22:54)
[2024-10-29] MEDS ORDERED: ALBUMIN HUMAN 25% 50 ML IV ONE ×2 (20:58→20:59)
[2024-10-29] MEDS ORDERED: ONDANSETRON 4 MG/2 ML VIAL ONE (20:58)
[2024-10-29 23:36] VITALS: TEMP 97.4
[2024-10-29 23:38] VITALS: BP 108/78; O2SAT 97
--- NOTE | 2024-11-10 11:24 | EKG ---
Test Date: 2024-10-29 Test Time: 16:22:14 Office Automation Technician: MILA MEASUREMENT RESULTS: Intervals: Rate: 93 [place]: 194 QRSD: 130 QT: 396 QTc: 492 [place]: P: 24 [place]: 194 QRS: 188 T: 52 INTERPRETIVE STATEMENTS: Normal sinus rhythm Right bundle branch block Possible Lateral infarct, age undetermined Abnormal ECG Compared to ECG 10/06/2024 16:25:21 Myocardial infarct finding now present Electronically Signed On 11-10-24 11:16:26 LINE MECHANIC by Jayson Johnson
== END 2024-10-29 22:59 | disposition short-term general hospital (02) ==
LOC: ER 14:49
DX: J90 Pleural effusion, not elsewhere classified (principal); N39.0 Urinary tract infection, site not specified; I50.30 Unspecified diastolic (congestive) heart failure; T68.XXXA Hypothermia, initial encounter; I15.1 Hypertension secondary to other renal disorders; E11.9 Type 2 diabetes mellitus without complications; I10 Essential (primary) hypertension; Z95.810 Presence of automatic (implantable) cardiac defibrillator
CPT/HCPCS: 96365; 96367; 93005; 87040 ×2; 87088; 85025; 81001; 87086; 36415; 85610; 82947; 83605; 85730; 87077; 87186; 84484; 80053; 83880; 71045; 96375; 99285; 96366; J2543; J3010 ×2; J2405; P9047 ×2

== ENCOUNTER 2025-01-19 20:00 | Inpatient (IN) | payer OTHER ==
--- NOTE | 2025-01-19 21:02 | RAD REPORT ---
EXAM: CT brain without contrast HISTORY: DECLINING STATE COMPARISON: 09/28/2022 TECHNIQUE: Multiple contiguous axial images were obtained and a CT of the brain without contrast. Sag ittal and coronal reformats were performed. One or more of the following dose reduction techniques were used: Automated exposure control, adjust ment of the mA and/or kV according to patient size, and/or iterative reconstruction. FINDINGS: No evidence of hydrocephalus, intracranial hemorrhage, or extra-axial fluid collection. Mild brain atrophy with mild periventricular and deep white matter chronic microvascular ischemic ch anges present. No evidence of midline shift or areas of brain edema. The calvarium is intact. The visualized paranasal sinuses and mastoid air cells are essentially clear . IMPRESSION: No evidence of acute intracranial abnormality.
--- NOTE | 2025-01-19 21:07 | RAD REPORT ---
EXAM: CT CHEST, ABDOMEN AND PELVIS WITHOUT CONTRAST CLINICAL INDICATION: ABDOMINAL DISTENTION TECHNIQUE: CT chest, abdomen and pelvis was performed without contrast, as per department protocol. A xial, sagittal and coronal reconstructions were obtained. One or more of the following dose reduction techniques were used: Automated exposure control, adjustment of the mA and/or kV according to patient size, and/or iterative reconstruction. Unless otherwise specified, incidental findings do not require dedicated imaging follow-up. Examination is limited by the lack of intravenous contrast material. COMPARISON: 10/06/2024 04/08/2023 FINDINGS: LUNGS: Patchy airspace opacity posterior right lung base likely representing pneumonia. Left lung is clear. There is an 11 mm nodule right middle lobe. PLEURA: Small bilateral pleural effusions. MEDIASTINUM AND LYMPH NODES: No mediastinal mass or fluid collection. Normal size mediastinal, hilar, and axillary lymph nodes. Coronary calcifications. Multilead pacer device. OSSEOUS STRUCTURES AND CHEST WALL: Intact. LIVER: Normal in size and contour. No focal lesion or biliary dilatation. Cholecystectomy clips. PANCREAS: No mass, ductal dilation, or jena-pancreatic fluid. SPLEEN: Normal size. No focal lesion. ADRENALS: Normal; no mass. KIDNEYS: Normal size and contour. No hydronephrosis. URINARY BLADDER: There is present in the urinary bladder wall. GASTROINTESTINAL TRACT: No bowel obstruction, free air, significant free fluid or abscess. Moderate stool is present in the colon. Evidence of prior partial colectomy. APPENDIX: Appendix not visualized, but no inflammatory changes in region of appendix. LYMPH NODES: No lymphadenopathy. MUSCULOSKELETAL: No acute or suspicious osseous abnormality. OTHER: IMPRESSION: Emphysematous cystitis. Patchy opacity in the posterior right lung base likely pneumonia. 11 mm nodule in the right middle lobe, unchanged since 04/08/2023. Recommend follow-up CT chest in one year for documentation of stability. Moderate stool retention throughout a mildly distended colon.
--- NOTE | 2025-01-19 21:09 | RAD REPORT ---
EXAMINATION: ONE VIEW CHEST XR CLINICAL INDICATION: CHEST PAIN TECHNIQUE: Frontal chest projection is submitted. Examination is limited by patient positioning and t echnique. COMPARISON: 10/29/2024 FINDINGS: Small pleural effusions. Patchy opacity is seen in the right lower lung. The lungs are otherwise emph ysematous. The heart is upper limit of normal in size. No displaced fractures identified. Pacer/defibrillator device present. IMPRESSION: Mild right lower lung infiltrate/pneumonia.
[2025-01-19 21:36] LABS: Absolute Eosinophils 0.1 K/uL (0-0.5); Absolute Lymphocytes (CBC) 1.1 K/uL (0.7-4.9); Absolute Monocytes 0.5 K/uL (0.1-1.3); Basophils % 0.4 % (0-1.3); Eosinophils % 2.1 % (0-4.4); Hematocrit 38.6 % (39.6-49.0); Hemoglobin 12.8 g/dL (13.6-17.9); Lymphocytes % 15.8 % (15.3-44.8); MCH 30.9 pg (27.0-35.0); MCHC 33.1 g/dL (32.0-36.0); MCV 93.3 fL (80-100); MPV 9.8 fL (7.6-11.3); Monocytes % 7.3 % (3.3-12.3); Neutrophils % 74.4 % (41.7-73.7); Nucleated Red Blood Cells % 0.1 % (0-0); Platelets 199 thou/uL (152-406); RBC Red Blood Cell Count 4.14 M/uL (4.33-5.43); Red Cell Distribution Width 17.2 % (12.1-15.2)
[2025-01-19] MEDS ORDERED: VANCOMYCIN 1 GM/VIAL ONE (21:39)
[2025-01-19] MEDS ORDERED: CEFEPIME 1 GM/VIAL ONE (21:40)
[2025-01-19] MEDS ORDERED: NA CHLORIDE 0.9% 250 ML ONE (21:40)
[2025-01-19] MEDS ORDERED: ALBUMIN HUMAN 25% 100 ML IV ONE (21:40)
[2025-01-19] MEDS ORDERED: NA CHLORIDE 0.9% 100 ML ONE (21:40)
[2025-01-19 21:52] LABS: PT Prothrombin Time 13.2 SECONDS (10-13.0); Protime INR 1.17
[2025-01-19 21:57] LABS: Albumin 3.1 g/dL (3.4-5.0); Albumin/Globulin Ratio 0.6 (1.1-1.8); Anion Gap 10.7 mEq/L (5.0-15.0); Bilirubin Direct 0.4 mg/dL (0-0.2); Bilirubin Indirect, Calculated 0.4 mg/dL (0.2-0.8); Bilirubin Total 0.8 mg/dL (0.2-1.0); Globulin 5.1 g/dL (2.3-3.5); Magnesium 2.4 mg/dL (1.6-2.4); Potassium 3.7 mEq/L (3.5-5.1); Protein, Total 8.2 g/dL (6.4-8.2); Troponin High Sensitivity 20.1 pg/mL (<58.9)
[2025-01-19 22:19] LABS: T4,Total 6.2 ug/dL (4.5-12.1); Thyroid Stimulating Hormone 2.39 uIU/mL (0.358-3.740)
--- NOTE | 2025-01-19 23:07 | EDPHYS ---
Physician Documentation [facility] Name: Royce Farr Age: 54 yrs Sex: Male : 1970 Arrival Date: 01/19/2025 Time: 20:00 Bed 3 Private MD: ED Physician Austyn Eastman HPI: 01/19 20:02 This 54 yrs old Male presents to ER via Unassigned with complaints of Fall sp4 Injury, Near Syncope. 22:48 54-year-old male presents with EMS after he slid off his bed while attempting to stand sp4 up. Patient has extensive past medical history of congestive heart failure, diabetes mellitus, hypertension, colon cancer, defibrillator pacemaker, recent cholecystectomy and difficult postoperative course with infection with C. difficile. Patient has incontinence of bowel and bladder. Patient presents with EMS for reported near syncopal episode and generalized weakness associated with fall.. Historical: - Allergies: 20:07 Morphine; al5 - PMHx: 20:07 Congestive heart failure; diabetes mellitus; Hypertensive disorder; colon cancer al5 (Defibrilator ); - PSHx: 20:07 Defibrilator; Cholecystectomy; al5 - Immunization history:: Adult Immunizations unknown. - Infectious Disease History:: CDIFF, . - Immunization history: Last tetanus immunization: unknown. - Social history:: Smoking status: Patient denies any tobacco usage or history of. - Family history:: not pertinent. ROS: 22:48 Constitutional: Negative for fever, chills, and weight loss, positive for generalized sp4 weakness positive for near syncope positive for fall off the bed 22:48 All other systems are negative, Exam: 22:48 Constitutional: Physically debilitated male, cachectic appearing, ill-appearing sp4 chronically, diffuse muscle wasting and atrophy, fresh postoperative midline abdominal scar. Dermabond still in place, apparent complications of immobility, also incontinent of bowel and bladder Head/Face: Normocephalic, atraumatic. Eyes: Pupils equal round and reactive to light, extra-ocular motions intact. Lids and lashes normal. Conjunctiva and sclera are not injected. Cornea within normal limits. Periorbital areas with no swelling, redness, or edema. ENT: Nares patent. No nasal discharge, no septal abnormalities noted. Tympanic membranes are normal and external auditory canals are clear. Oropharynx with no redness, swelling, or masses, exudates, or evidence of obstruction, uvula midline. Mucous membranes moist. Neck: Trachea midline, no thyromegaly or masses palpated, and no cervical lymphadenopathy. Supple, full range of motion without nuchal rigidity, or vertebral point tenderness. Chest/axilla: Normal chest wall appearance and motion. Nontender with no deformity. No lesions are appreciated. Cardiovascular: Regular rate and rhythm with a normal S1 and S2. No gallops, murmurs, or rubs. Normal PMI, no JVD. No pulse deficits. Left chest wall pacemaker defibrillator present Respiratory: Lungs have equal breath sounds bilaterally, clear to auscultation and percussion. No rales, rhonchi or wheezes noted. No increased work of breathing, no retractions or nasal flaring. Abdomen/GI: Soft, with normal bowel sounds. No distension or tympany. No guarding or rebound. No evidence of tenderness throughout. Multiple scars recent postoperative incisions that are clean dry and intact and under Dermabond. Back: No spinal tenderness. No costovertebral tenderness. Male : Normal genitalia with no discharge or lesions. Incontinent of bowel and bladder Skin: Warm, dry with normal turgor. Normal color with no rashes, no lesions, and no evidence of cellulitis. MS/ Extremity: Pulses equal, no cyanosis. Neurovascular intact. Diffuse cachexia and muscular atrophy, generalized weakness on exam. Nonambulatory Neuro: Awake and alert, GCS 15, oriented to person, place, time, and situation. Cranial nerves II-XII grossly intact. Motor strength 5/5 in all extremities. Sensory grossly intact. 22:48 ECG was reviewed by the Attending Physician. EKG at 2033 normal sinus rhythm rate 79, right bundle branch block. Otherwise unremarkable. Vital Signs: 20:00 BP 114 / 83; Pulse 79; Resp 16; Pulse Ox 99% ; al5 20:10 BP 109 / 83; Pulse 78; Resp 16; Pulse Ox 99% on R/A; Weight 47.63 kg; Height 5 ft. 5 al5 in. ; 20:30 BP 112 / 81; Pulse 79; Resp 18; Pulse Ox 100% ; al5 21:00 BP 107 / 80; Pulse 79; Resp 17; Pulse Ox 100% ; al5 21:30 BP 109 / 82; Pulse 78; Resp 18; Pulse Ox 100% ; al5 22:00 BP 109 / 79; Pulse 75; Resp 16; Pulse Ox 100% ; al5 22:30 BP 98 / 68; Pulse 75; Resp 19; Pulse Ox 100% ; al5 23:00 BP 104 / 75; Pulse 72; Resp 16; Pulse Ox 100% ; al5 23:30 BP 99 / 72; Pulse 75; Resp 16; Pulse Ox 100% ; al5 01/20 00:00 BP 102 / 78; Pulse 75; Resp 15; Temp 97.1; Pulse Ox 100% ; al5 01/19 20:10 Body Mass Index 17.47 (47.63 kg, 165.1 cm) al5 Jennifer Coma Score: 01/19 20:12 Eye Response: spontaneous(4). Motor Response: obeys commands(6). Verbal Response: al5 oriented(5). Total: 15. 22:48 Eye Response: spontaneous(4). Motor Response: obeys commands(6). Verbal Response: sp4 oriented(5). Total: 15. Trauma Score (Adult): 20:12 Eye Response: spontaneous(1); Verbal Response: oriented(1); Motor Response: obeys al5 commands(2); Systolic BP: > 89 mm Hg(4); Respiratory Rate: 10 to 29 per min(4); Channing Score: 15; Trauma Score: 12 MDM: 20:14 Medical Screening Exam initiated sp4 22:25 ED course: EXAMINATION: ONE VIEW CHEST XR CLINICAL INDICATION: CHEST PAIN TECHNIQUE: sp4 Frontal chest projection is submitted. Examination is limited by patient positioning and technique. COMPARISON: 10/29/2024 FINDINGS: Small pleural effusions. Patchy opacity is seen in the right lower lung. The lungs are otherwise emphysematous. The heart is upper limit of normal in size. No displaced fractures identified. Pacer/defibrillator device present. IMPRESSION: Mild right lower lung infiltrate/pneumonia. . ED course: EXAM: CT brain without contrast HISTORY: DECLINING STATE COMPARISON: 09/28/2022 TECHNIQUE: Multiple contiguous axial images were obtained and a CT of the brain without contrast. Sagittal and coronal reformats were performed. One or more of the following dose reduction techniques were used: Automated exposure control, adjustment of the mA and/or kV according to patient size, and/or iterative reconstruction. FINDINGS: No evidence of hydrocephalus, intracranial hemorrhage, or extra-axial fluid collection. Mild brain atrophy with mild periventricular and deep white matter chronic microvascular ischemic changes present. No evidence of midline shift or areas of brain edema. The calvarium is intact. The visualized paranasal sinuses and mastoid air cells are essentially clear. IMPRESSION: No evidence of acute intracranial abnormality. . 23:14 Differential diagnosis: abrasion, closed head injury, multiple trauma, sprain, strain. 4 Data reviewed: vital signs, nurses notes, lab test result(s), electrolytes, hepatic panel, urinalysis, EKG, radiologic studies, CT scan, plain films. 01/19 20:04 Order name: Basic Metabolic Panel; Complete Time: 22:21 4 01/19 20:04 Order name: CBC with Diff; Complete Time: 22: 4 01/19 20:04 Order name: LFT's; Complete Time: 22: 4 01/19 20:04 Order name: Magnesium; Complete Time: 22: sp4 01/19 20:04 Order name: NT PRO-BNP; Complete Time: 22: 4 01/19 20:04 Order name: PT-INR; Complete Time: 22: 4 01/19 20:04 Order name: Troponin HS; Complete Time: 22: sp4 01/19 20:10 Order name: Urinalysis W/Microscopic sp4 01/19 20:10 Order name: Blood Culture Adult (2) 4 01/19 20:14 Order name: Lactate w/ 2H reflex if indic.; Complete Time: 22:21 4 01/19 20:14 Order name: TSH; Complete Time: 22:21 4 01/19 20:14 Order name: T4,Total; Complete Time: 22:21 4 01/19 23:14 Order name: COVID-19 Ag + Flu A+B Ag; Complete Time: 00:58 sp4 01/19 23:39 Order name: Urinalysis w/ reflexes EDMS 01/19 23:40 Order name: CBC with Automated Diff EDMS 01/19 23:40 Order name: CBC with Automated Diff EDMS 01/19 23:40 Order name: Comprehensive Metabolic Panel EDMS 01/19 23:40 Order name: Comprehensive Metabolic Panel [facility] 01/19 20:04 Order name: XRAY Chest (1 view); Complete Time: 22: 4 01/19 20:11 Order name: CT Head Brain wo Cont; Complete Time: 22:21 4 01/19 20:11 Order name: CT Chest Abdomen Pelvis W/O Contrast; Complete Time: 22:21 sp4 01/19 20:04 Order name: EKG; Complete Time: 20:05 4 01/19 20:04 Order name: Cardiac monitoring; Complete Time: 21:16 sp4 01/19 20:04 Order name: EKG - Nurse/Tech; Complete Time: 21:16 sp4 01/19 20:04 Order name: IV Saline Lock; Complete Time: 20: 4 01/19 20:04 Order name: Labs collected and sent; Complete Time: 20:13 4 01/19 20:04 Order name: O2 Per Protocol; Complete Time: 20: 4 01/19 20:04 Order name: O2 Sat Monitoring; Complete Time: 20:13 EC:34 Rate is 79 beats/min. Rhythm is regular, Sinus Rhythm. QRS Dubois is Normal. MI interval sp4 is normal. QRS interval is prolonged. QT interval is normal. No Q waves. T waves are Normal. No ST changes noted. Clinical impression: No evidence of ischemia. Interpreted by me. Reviewed by me. Administered Medications: 21:57 Drug: Cefepime IVPB 1 grams IVPB at 200 ml/hr once over 30 mins; (mix in NS 100 mL) al5 Route: IVPB; Rate: 200 ml/hr; Infused Over: 30 mins; Site: right forearm; 22:25 Follow up: Response: No adverse reaction; IV Status: Completed infusion; IV Intake: al5 100ml 21:58 Drug: Albumin IVPB 25 grams 100 ml IVPB once; (Note: Albumin 25% concentration) Volume: al5 100 ml; Route: IVPB; Site: left forearm; 23:59 Follow up: Response: No adverse reaction; IV Status: Completed infusion; IV Intake: al5 100ml 22:25 Drug: vancoMYCIN IVPB 1 grams IVPB once over 2 hrs Route: IVPB; Infused Over: 2 hrs; al5 Site: right forearm; 23:59 Follow up: Response: No adverse reaction; IV Status: Completed infusion; IV Intake: al5 250ml Disposition Summary: 01/19/25 23:13 Hospitalization Ordered Notes: Hospitalization Status: Inpatient Admission sp4 Provider: True Mcdowell Location: Telemetry/MedSur (Inpatient)(01/19/25 23:13) sp4 Condition: Stable(01/19/25 23:13) sp4 Problem: new(01/19/25 23:13) sp4 Symptoms: have improved(01/19/25 23:13) sp4 Bed/Room Type: Standard sp4 Room Assignment: 201(01/19/25 23:37) vk Diagnosis - Lobar pneumonia, unspecified organism(01/19/25 23:13) sp4 - Hypovolemic shock sp4 - Cachexia sp4 - Right lower lung lobar pneumonia, moderate dehydration, physical debility, sp4 complications of immobility, history of C. difficile colitis - Near syncopal episode sp4 Forms: - Medication Reconciliation Form sp4 - SBAR form sp4 - Leadership Thank You Letter sp4 Critical care time excluding procedures: 23:11 Critical care time: Bedside Care: 36 minutes, Consultation: 12 minutes, Family sp4 Intervention: 12 minutes. Total time: 60 minutes Signatures: Dispatcher [employer] EDAustyn Norton MD MD sp4 Gunjan Summers Amanda RN RN al5 Corrections: (The following items were deleted from the chart) 23:07 23:06 Home sp4 sp4 23:07 23:06 new sp4 sp4 23:07 23:06 have improved sp4 sp4 23:07 23:06 Serious sp4 sp4 23:07 23:06 Lobar pneumonia, unspecified organism sp4 sp4 23:07 23:06 Near syncope, cachexia, hyponatremia, protein calorie malnutrition complications sp4 of immobility, history of C. difficile colitis sp4 23:37 23:13 sp4 vk
--- NOTE | 2025-01-19 23:07 | ER ---
Nurse's Notes [facility] Name: Royce Farr Age: 54 yrs Sex: Male : 1970 Arrival Date: 01/19/2025 Time: 20:00 Bed 3 Private MD: Diagnosis: Lobar pneumonia, unspecified organism;Hypovolemic shock;Cachexia;Right lower lung lobar pneumonia, moderate dehydration, physical debility, complications of immobility, history of C. difficile colitis;Near syncopal episode Presentation: 01/19 20:02 Chief complaint: EMS states: patient states he fell out of bed, no injury complaint al5 from the patient. patient states he felt dizzy prior to falling and c/o nausea. Care prior to arrival: Medication(s) given: Normal saline infusion, 100 mL IV initiated. 20 GA, in the left forearm, Glucose check: 282. Mechanism of Injury: Fall out of bed. Trauma event details: Injury occurred in the [facility], Injury occurred: at home. Injury occurred: January 19, 2025. 20:02 Acuity: SANDRO 3 al5 20:02 Method Of Arrival: EMS: [facility] al5 20:10 Coronavirus screen: At this time, the client does not indicate any symptoms associated al5 with coronavirus-19. Ebola Screen: No symptoms or risks identified at this time. Initial Sepsis Screen: Does the patient meet any 2 criteria? No. Patient's initial sepsis screen is negative. Does the patient have a suspected source of infection? No. Patient's initial sepsis screen is negative. Risk Assessment: Do you want to hurt yourself or someone else? Patient reports no desire to harm self or others. Onset of symptoms was January 19, 2025. 20:10 Note has C. Diff. al5 Triage Assessment: 20:10 General: see trauma assessment. al5 Trauma Activation: Physician: ED Physician; Name: ; Notified At: ; Arrived At: Physician: General Surgeon; Name: ; Notified At: ; Arrived At: Physician: Radiology; Name: ; Notified At: ; Arrived At: Physician: Respiratory; Name: ; Notified At: ; Arrived At: Physician: Lab; Name: ; Notified At: ; Arrived At: 20:02 n/a al5 Historical: - Allergies: 20:07 Morphine; al5 - PMHx: 20:07 Congestive heart failure; diabetes mellitus; Hypertensive disorder; colon cancer al5 (Defibrilator ); - PSHx: 20:07 Defibrilator; Cholecystectomy; al5 - Immunization history:: Adult Immunizations unknown. - Infectious Disease History:: CDIFF, . - Immunization history: Last tetanus immunization: unknown. - Social history:: Smoking status: Patient denies any tobacco usage or history of. - Family history:: not pertinent. Screenin:10 Abuse screen: Denies threats or abuse. Denies injuries from another. Nutritional al5 screening: No deficits noted. Tuberculosis screening: No symptoms or risk factors identified. 20:11 [facility] ED Fall Risk Assessment (Adult) History of falling in the last 3 months, al5 including since admission Yes- physiologic fall (2 pts) Confusion or Disorientation No (0 pts) Intoxicated or Sedated No (0 pts) Impaired Gait Yes (1 pt) Mobility Assist Device Used Yes (1 pt) Altered Elimination Yes (1 pt) Score/Fall Risk Level 3 or more points = High Risk Oriented to surroundings, Maintained a safe environment, Hourly rounding (assess needs \T\ fall precautionary measures) done. Primary Survey: 20:09 NO uncontrolled hemorrhage observed. A: The client is alert. Airway: patent, No al5 supplemental oxygen in use on arrival. Breathing/Chest: Respiratory effort: spontaneous, unlabored, Respiratory pattern: regular. Circulation: Skin color: pale, Skin temperature: warm, dry. Disability Pupils are equal, round, reactive to light and accommodation. Client is alert. Exposure/Environment: All clothing and personal items were removed. Forensic evidence collection is not deemed to be indicated at this time. Items placed in patient belonging bag. There is no evidence of uncontrolled external bleeding. No obvious injuries are noted at this time. A warming method has been applied: A warm blanket has been provided to the patient. 21:20 Reassessment Alertness and Airway: Awake and alert. The airway is patent. Breathing: al5 Spontaneous respiratory effort, equal unlabored respirations, breath sounds clear bilaterally, regular pattern with symmetrical chest rise and fall. Circulation: No external hemorrhage noted. Regular and strong central pulse, skin warm/dry/normal color. Disability: Pupils Pupils are equal, round, reactive to light and accomodation. Alert. Secondary Survey: 20:09 HEENT: No deficits noted. Gastrointestinal: Abdomen is flat, non-distended. : No al5 signs and/or symptoms were reported regarding the genitourinary system. Musculoskeletal: No signs and/or symptoms reported regarding the musculoskeletal system. Assessment: 20:06 General: Appears in no apparent distress. comfortable, ill, slender, Behavior is calm, al5 cooperative. Pain: Denies pain. Neuro: Level of Consciousness is awake, alert, obeys commands, Oriented to person, place, time, situation. EENT: No signs and/or symptoms were reported regarding the EENT system. Cardiovascular: Reports syncope, Capillary refill < 3 seconds Patient's skin is warm and dry. Respiratory: Airway is patent Respiratory effort is even, unlabored, Respiratory pattern is regular, symmetrical. GI: Reports recent jarek. : No signs and/or symptoms were reported regarding the genitourinary system. Derm: Skin is intact, Skin is pale, Wound noted coccyx Wound is pressure ulcer to coccyx Other: excoriation to L side groin, treated with barrier cream. Musculoskeletal: No signs and/or symptoms reported regarding the musculoskeletal system. 21:20 Reassessment: Patient appears in no apparent distress at this time. No changes from al5 previously documented assessment. Patient and/or family updated on plan of care and expected duration. Pain level reassessed. Patient is alert, oriented x 3, equal unlabored respirations, skin warm/dry/pink. 22:27 Reassessment: Patient appears in no apparent distress at this time. No changes from al5 previously documented assessment. Patient and/or family updated on plan of care and expected duration. Pain level reassessed. Patient is alert, oriented x 3, equal unlabored respirations, skin warm/dry/pink. 01/20 00:08 Reassessment: Patient appears in no apparent distress at this time. No changes from al5 previously documented assessment. Patient and/or family updated on plan of care and expected duration. Pain level reassessed. Patient is alert, oriented x 3, equal unlabored respirations, skin warm/dry/pink. Vital Signs: 01/19 20:00 BP 114 / 83; Pulse 79; Resp 16; Pulse Ox 99% ; al5 20:10 BP 109 / 83; Pulse 78; Resp 16; Pulse Ox 99% on R/A; Weight 47.63 kg; Height 5 ft. 5 al5 in. ; 20:30 BP 112 / 81; Pulse 79; Resp 18; Pulse Ox 100% ; al5 21:00 BP 107 / 80; Pulse 79; Resp 17; Pulse Ox 100% ; al5 21:30 BP 109 / 82; Pulse 78; Resp 18; Pulse Ox 100% ; al5 22:00 BP 109 / 79; Pulse 75; Resp 16; Pulse Ox 100% ; al5 22:30 BP 98 / 68; Pulse 75; Resp 19; Pulse Ox 100% ; al5 23:00 BP 104 / 75; Pulse 72; Resp 16; Pulse Ox 100% ; al5 23:30 BP 99 / 72; Pulse 75; Resp 16; Pulse Ox 100% ; al5 01/20 00:00 BP 102 / 78; Pulse 75; Resp 15; Temp 97.1; Pulse Ox 100% ; al5 01/19 20:10 Body Mass Index 17.47 (47.63 kg, 165.1 cm) al5 Jennifer Coma Score: 01/19 20:12 Eye Response: spontaneous(4). Motor Response: obeys commands(6). Verbal Response: al5 oriented(5). Total: 15. 22:48 Eye Response: spontaneous(4). Motor Response: obeys commands(6). Verbal Response: sp4 oriented(5). Total: 15. Trauma Score (Adult): 20:12 Eye Response: spontaneous(1); Verbal Response: oriented(1); Motor Response: obeys al5 commands(2); Systolic BP: > 89 mm Hg(4); Respiratory Rate: 10 to 29 per min(4); Lackey Score: 15; Trauma Score: 12 ED Course: 20:02 Patient arrived in ED. al5 20:02 Austyn Eastman MD is Attending Physician. sp4 20:06 Triage completed. al5 20:10 Patient has correct armband on for positive identification. Bed in low position. Call al5 light in reach. Side rails up X2. Patient maintains SpO2 saturation greater than 95% on room air. 20:10 No provider procedures requiring assistance completed. Maintain EMS IV. Dressing al5 intact. Good blood return noted. Site clean \T\ dry. Gauge \T\ site: 20G LFA. Flushed with 10 mL NS. 20:12 Provided Education on: plan of care. al5 20:13 Elyssa Fuller, RN is Primary Nurse. al5 20:13 Arm band placed on right wrist. Patient placed in the treatment room, in view of staff al5 members, on project management intern, on pulse oximetry. 20:13 Thermoregulation: warm blanket given to patient. al5 20:41 EKG done, by ED staff, reviewed by Austyn Eastman MD. mm11 20:54 CT Head Brain wo Cont In Process Unspecified. EDMS 20:54 CT Chest Abdomen Pelvis W/O Contrast In Process Unspecified. EDMS 21:05 XRAY Chest (1 view) In Process Unspecified. EDMS 21:20 Inserted saline lock: 22 gauge in right forearm, using aseptic technique. al5 23:00 True Mcdowell MD is Referral Physician. sp4 23:11 True Mcdowell MD is Hospitalizing Provider. sp4 01/20 00:50 Patient admitted, IV remains in place. al5 Administered Medications: 01/19 21:57 Drug: Cefepime IVPB 1 grams IVPB at 200 ml/hr once over 30 mins; (mix in NS 100 mL) al5 Route: IVPB; Rate: 200 ml/hr; Infused Over: 30 mins; Site: right forearm; 22:25 Follow up: Response: No adverse reaction; IV Status: Completed infusion; IV Intake: al5 100ml 21:58 Drug: Albumin IVPB 25 grams 100 ml IVPB once; (Note: Albumin 25% concentration) Volume: al5 100 ml; Route: IVPB; Site: left forearm; 23:59 Follow up: Response: No adverse reaction; IV Status: Completed infusion; IV Intake: al5 100ml 22:25 Drug: vancoMYCIN IVPB 1 grams IVPB once over 2 hrs Route: IVPB; Infused Over: 2 hrs; al5 Site: right forearm; 23:59 Follow up: Response: No adverse reaction; IV Status: Completed infusion; IV Intake: al5 250ml Medication: 20:11 VIS not applicable for this client. al5 Intake: 22:25 IV: 100ml; Total: 100ml. al5 23:59 IV: 100ml; Total: 200ml. al5 23:59 IV: 250ml; Total: 450ml. al5 20:12 n/a al5 Outcome: 23:06 Discharge ordered by . sp4 23:13 Decision to Hospitalize by Provider. sp4 01/20 00:50 Patient's length of stay in the Emergency Department was greater than 2 hours. patient al5 admittedPatient's length of stay extended due to 00:50 Admitted to Med/surg accompanied by tech, via stretcher, room 201, with chart, al5 00:50 Condition: stable 00:50 Instructed on the need for admit, 01:07 Patient left the ED. al5 Signatures: Dispatcher [employer] EDAustyn Norton MD MD sp4 Elyssa Fuller RN RN al5 mina jaquez [id number] Corrections: (The following items were deleted from the chart) 01/19 20:12 20:02 Care prior to arrival: None. al5 al5 01/20 00:09 01/19 20:06 Derm: Skin is intact, Skin is pale, al5 al5
--- NOTE | 2025-01-19 23:33 | P.HP ---
Certification for Inpatient Patient admitted to: Inpatient With expected LOS: >2 Midnights Practitioner: I am a practitioner with admitting privileges, knowledge of patient current condition, hospital course, and medical plan of care. Services: Services provided to patient in accordance with Admission requirements found in Title 42 Section 412.3 of the Code of Federal Regulations Patient History Date of Service: 01/20/25 Reason for admission: Syncope History of Present Illness: 54 yrs old Male with past medical history of chronic systolic heart failure with recent echo showing EF of 10% status post AICD placement, diabetes, hypertension, colon cancer brought to ER with syncopal episode. He apparently slid off his bed while attempting to stand up. Patient has a complex medical history with a recent cholecystectomy and had a prolonged postoperative course in [facility] with infection with a C. difficile. Patient complains of generalized weakness and fatigue. Patient was assessed in the ER and was admitted for further management of pneumonia and syncopal workup. Allergies morphine Allergy (Verified 01/20/25 01:36) Nausea/Vomiting Home medications list reviewed: Yes Home Medications: Aspirin [Aspirin EC 81 MG] 1 tab PO DAILY 09/28/22 Atorvastatin Calcium 20 mg PO BEDTIME 09/28/22 Metoprolol Succinate 1 tab PO DAILY 07/20/24 Loperamide [Imodium*] 1 cap PO Q4H PRN 08/03/24 Insulin Glargine,Hum.rec.anlog [Lantus] 8 unit SQ DAILY 10/07/24 Insulin Lispro 3 unit SQ AC 10/07/24 Mexiletine HCl [Mexitil*] 150 mg PO TID 10/07/24 Na Bicarb Tab [Sodium Bicarb 325 MG Tab*] 650 mg PO BID 10/07/24 Spironolactone [Aldactone*] 12.5 mg PO DAILY 10/07/24 Tamsulosin [Flomax*] 0.4 mg PO DAILY 10/07/24 Bumetanide [Bumex*] 1 mg PO BID #60 tab 10/09/24 Cefpodoxime Proxetil [Vantin] 200 mg PO BID #10 tab 10/09/24 - Past Medical/Surgical History Diabetic: Yes Past Medical History: Reviewed- Non-Contributory -: HTN -: Systolic Diastolic CHF LVEF 10% -: Moderate Pulmonary HTN -: DM II -: CKD III with Proteinuria (Dr. Leary/ Don) -: CAD/ MA -: Colon Cancer Stage II Past Surgical History: Reviewed- Non-Contributory -: cardiac stents placement in January -: Bowel Resection -: Ileostomy reversal - Family History Family History: Reviewed- Non-Contributory - Family History Father -: Hypertension, Diabetes - Social History Smoking Status: Never smoker Alcohol use: No CD- Drugs: No Caffeine use: Yes Review of Systems 10-point ROS is otherwise unremarkable Physical Examination - Vital Signs Temperature: 97.9 F Blood Pressure: 114/82 Pulse: 78 Respirations: 18 Pulse Ox (%): 94 - Physical Exam General: Alert, In no apparent distress, Cooperative, Cachectic HEENT: Atraumatic, Normocephalic Neck: Supple Respiratory: Clear to auscultation bilaterally, Normal air movement Cardiovascular: Normal pulses, Regular rate/rhythm, Normal S1 S2 Capillary refill: <2 Seconds Gastrointestinal: Soft and benign, W/out hepatosplenomegaly Musculoskeletal: No clubbing Integumentary: No breakdown, No tenderness/swelling Neurological: Other (Alert, Awake ) Lymphatics: Other (No generalized lymphadenopathy) - Studies Laboratory Data (last 24 hrs) 01/19/25 01/19/25 01/19/25 21:25 21:25 21:25 WBC 6.70 Hgb 12.8 L Hct 38.6 L Plt Count 199 PT 13.2 H INR 1.17 Sodium 134 L Potassium 3.7 BUN 72 H Creatinine 1.09 Glucose 197 H Magnesium 2.4 Total Bilirubin 0.8 AST 36 ALT 88 H Alkaline Phosphatase 743 H Assessment and Plan - Plan Hyponatremia Dehydration Syncope Syncope workup Head CT is negative for any acute changes Moderate IV hydration because of CHF history Pneumonia Patchy opacity in the posterior right lung base likely pneumonia. As per CT Started on IV antibiotics Hypertension Antihypertensives titrated Continue home medications and titrate as needed Hyperlipidemia Continue statin Diabetes Insulin sliding scale Accu-Chek before every meal and at bedtime Anemia of chronic disease Monitor H&H closely No overt bleeding at this time History of colon cancer History of cholecystectomy History of C. difficile Continue home medications and titrate as needed GI/DVT prophylaxis Advanced directive full code Discharge Plan: Home Plan to discharge in: 48 Hours - Advance Directives Does patient have a Living Will: No Does patient have a Durable POA for Healthcare: No - Code Status/Comfort Care Code Status: Full Code Time Spent Managing Pts Care (In Minutes): 58
[2025-01-19] MEDS ORDERED: ALBUTEROL 2.5 MG/3 ML NEB SOL NEB PRN (23:35)
[2025-01-19] MEDS ORDERED: IPRATROPIUM BROM 0.5MG/2.5ML NEB PRN (23:35)
[2025-01-19] MEDS ORDERED: ACETAMINOPHEN 325 MG TABLET PO PRN (23:35)
[2025-01-20 00:04] LABS: Influenza A Ag Negative; Influenza B Ag Negative; SARS-CoV-2 Antigen Rapid Res Negative (Negative)
[2025-01-20 02:18] VITALS: BMI 14.6
[2025-01-20 05:48] LABS: Absolute Eosinophils 0.2 K/uL (0-0.5); Absolute Lymphocytes (CBC) 1.6 K/uL (0.7-4.9); Absolute Monocytes 0.7 K/uL (0.1-1.3); Absolute Neutrophil 4.6 K/uL (1.8-8.0); Basophils % 0.6 % (0-1.3); Eosinophils % 3.1 % (0-4.4); Hematocrit 36.7 % (39.6-49.0); Hemoglobin 12.5 g/dL (13.6-17.9); Lymphocytes % 22.1 % (15.3-44.8); MCH 31.5 pg (27.0-35.0); MCHC 34.1 g/dL (32.0-36.0); MCV 92.4 fL (80-100); MPV 10.4 fL (7.6-11.3); Monocytes % 9.6 % (3.3-12.3); Neutrophils % 64.6 % (41.7-73.7); Platelets 166 thou/uL (152-406); RBC Red Blood Cell Count 3.97 M/uL (4.33-5.43); Red Cell Distribution Width 17.5 % (12.1-15.2)
[2025-01-20 06:18] LABS: Albumin 3.1 g/dL (3.4-5.0); Albumin/Globulin Ratio 0.7 (1.1-1.8); Anion Gap 10.6 mEq/L (5.0-15.0); Bilirubin Total 0.8 mg/dL (0.2-1.0); Globulin 4.4 g/dL (2.3-3.5); Protein, Total 7.5 g/dL (6.4-8.2)
[2025-01-20 06:19] LABS: Potassium 3.6 mEq/L (3.5-5.1)
[2025-01-20] MEDS: INSULIN LISPRO 100 UNIT/1 ML SQ SCH (07:30)
[2025-01-20] MEDS: AZITHROMYCIN IV 500 MG in NA CHLORIDE 0.9% 250 ML IVPB SCH (10:36)
[2025-01-20] MEDS: CEFTRIAXONE 1,000 MG in NA CHLORIDE 0.9% 50 ML IVPB SCH (10:37)
[2025-01-20] MEDS: ENOXAPARIN 40 MG/0.4 ML SQ SCH (10:38)
[2025-01-20] MEDS: SODIUM BICARB 325 MG TAB PO SCH (10:38)
[2025-01-20] MEDS: MEXILETINE HCL 150 MG CAP PO SCH (10:38)
[2025-01-20] MEDS: INSULIN GLARGINE 100 UNIT/ML SQ SCH (10:39)
[2025-01-20] MEDS: TAMSULOSIN 0.4 MG SR CAP PO SCH (10:39)
[2025-01-20] MEDS: ASPIRIN EC 81 MG TAB PO SCH (10:39)
[2025-01-20] MEDS: METOPROLOL XL 25 MG TAB PO SCH (10:39)
[2025-01-20] MEDS: BUMETANIDE 1 MG TABLET PO SCH (10:39)
--- NOTE | 2025-01-20 11:12 | P.PN ---
Date of Service: 01/20/25 Subjective: reports feeling better than last night no new/worsening issues reports recent c.diff - uncertain what date / testing, but reports being isolated for 2 weeks and receiving ~2 weeks of antibiotic at rehab Physical Exam: GEN: Alert, oriented, NAD, cachectic CV: Regular rate and rhythm, no edema Pulm: Nonlabored respirations on room air, clear bilaterally ABD: soft, nontender, nondistended Neuro: Normal speech, normal affect Problem List: emphysematous cystitis Syncope Generalized weakness Hyponatremia CKD 3 ?Recent C. difficile Chronic diastolic CHF (10% EF) Pulmonary hypertension Hypertension Hyperlipidemia History of colon cancer History of recent cholecystectomy Chronic anemia IDDM2 emphysematous cystitis Syncope Generalized weakness on admission, presents with worsening weakness/fatigue after syncopal episode at home. Reportedly slid off his bed while trying to stand up. CT head negative for any acute findings. CT chest/abd 01/19: emphysematous cystitis, moderate stool burden throughout mildly distended colon dc azithromycin, do not suspect pneumonia continue rocephin pt does report increased urinary frequency the last few days, reports h/o UTIs EMR notes ESBL in the past; low threshold to expand coverage if any worsening appears dry on exam, start IVF Follow blood cultures procal normal Hyponatremia, mild, likely hypovolemic, resolved CKD 3 continue IV fluids renal function stable. ?Recent C. difficile Unable to find any clear documentation, however patient reports what sounds like recent C. Diff infection. Reports multiple episodes of diarrhea at rehab after recent surgery. Was reportedly on isolation precautions for ~2 weeks while at rehab and was given oral abx at the time. Monitor for diarrhea. Isolation precautions. Chronic diastolic CHF (10% EF) Pulmonary hypertension Hypertension Hyperlipidemia History of colon cancer History of recent cholecystectomy confirm home meds, restart as appropriate Chronic anemia hgb stable. Daily labs. IDDM2 accu-cheks, SSI . rate as needed. VTE: Lovenox Code: Full Dispo: Home vs snf, 3-4 days Time Spent Managing Pts Care (In Minutes): 55
[2025-01-20] MEDS ORDERED: ALBUTEROL 2.5 MG/3 ML NEB SOL NEB PRN (14:00)
[2025-01-20] MEDS: LACTOBACILLUS/ACIDOPHILUS TAB PO SCH (14:33)
[2025-01-20] MEDS: NA CHLORIDE 0.9% 1,000 ML IV SCH (14:34)
[2025-01-20] MEDS: ATORVASTATIN 40 MG TAB PO SCH (20:54)
[2025-01-20] MEDS: GLUCERNA SHAKE 237 ML CAN PO SCH (21:00)
[2025-01-20] MEDS: Banana Flakes/T-Galactooligos 1 Dose Packet PO SCH (21:00)
[2025-01-20] MEDS ORDERED: GLUCERNA SHAKE 237 ML CAN PO SCH (21:00)
[2025-01-21 04:58] LABS: Absolute Eosinophils 0.2 K/uL (0-0.5); Absolute Lymphocytes (CBC) 1.3 K/uL (0.7-4.9); Absolute Monocytes 0.5 K/uL (0.1-1.3); Absolute Neutrophil 2.8 K/uL (1.8-8.0); Basophils % 0.9 % (0-1.3); Eosinophils % 3.3 % (0-4.4); Hematocrit 31.8 % (39.6-49.0); Hemoglobin 10.9 g/dL (13.6-17.9); Lymphocytes % 26.4 % (15.3-44.8); MCH 31.6 pg (27.0-35.0); MCHC 34.3 g/dL (32.0-36.0); MCV 92.2 fL (80-100); MPV 10.4 fL (7.6-11.3); Monocytes % 10.5 % (3.3-12.3); Neutrophils % 58.9 % (41.7-73.7); Nucleated Red Blood Cells % 0.1 % (0-0); Platelets 131 thou/uL (152-406); RBC Red Blood Cell Count 3.45 M/uL (4.33-5.43); Red Cell Distribution Width 17.1 % (12.1-15.2)
[2025-01-21 05:27] LABS: Albumin 2.6 g/dL (3.4-5.0); Albumin/Globulin Ratio 0.7 (1.1-1.8); Anion Gap 10.7 mEq/L (5.0-15.0); Bilirubin Total 0.6 mg/dL (0.2-1.0); Protein, Total 6.6 g/dL (6.4-8.2)
[2025-01-21 06:01] LABS: Potassium 3.7 mEq/L (3.5-5.1)
[2025-01-21 06:13] LABS: Specific Gravity 1.012 (1.005-1.030); Sqamous Epithelial <5 /HPF (None Seen); Urine Bacteria 20-50 /HPF (<20); Urine Bilirubin NEGATIVE (Negative); Urine Blood 3+ (OVER) (Negative); Urine Clarity Extremely Turbid (Clear); Urine Color Light-Yellow (Yellow); Urine Crystals Unidentified Few /HPF (None Seen); Urine Culture Reflex Order REFLEXED; Urine Glucose NEGATIVE (Negative); Urine Ketones NEGATIVE (Negative); Urine Microscopic Reflex YN ORDER UMIC; Urine Nitrite NEGATIVE (Negative); Urine Protein 1+ (Negative); Urine RBC >50 /HPF (None Seen); Urine Urobilinogen Normal (Normal); Urine WBC 20-50 /HPF (<5); Urine pH 5.5 (5.0-7.0)
[2025-01-21] MEDS: POTASSIUM 25 MEQ EFFERV TAB PO ONE (07:01)
--- NOTE | 2025-01-21 11:13 | P.PN ---
Date of Service: 01/21/25 Subjective: breathing okay on room air diarrhea improving afebrile Physical Exam: GEN: Alert, oriented, NAD, cachectic CV: Regular rate and rhythm, no edema Pulm: Nonlabored respirations on room air, clear bilaterally ABD: soft, nontender, nondistended Neuro: Normal speech, normal affect Problem List: Emphysematous cystitis Syncope Generalized weakness Hyponatremia, mild, likely hypovolemic, resolved CKD 3 ?Recent C. difficile Chronic diastolic CHF (20-24% EF 10/2024) Pulmonary hypertension Hypertension Hyperlipidemia History of colon cancer s/p right hemicolectomy and ileostomy reversal History of recent cholecystectomy Chronic anemia IDDM2 Emphysematous cystitis Syncope Generalized weakness on admission, presents with worsening weakness/fatigue after syncopal episode at home. Reportedly slid off his bed while trying to stand up. CT head negative for any acute findings. CT chest/abd 01/19: emphysematous cystitis, moderate stool burden throughout mildly distended colon pt does report increased urinary frequency the last few days, reports h/o UTIs EMR notes ESBL in the past; low threshold to expand coverage if any worsening 01/17 - Urine culture at rehab prelim grew gram negative rods, >100k cfu/ml 01/18 - received 1 dose of Fosfomycin 3g for UTI 01/20 - continue IV rocephin (01/20-) dc azithromycin, do not suspect pneumonia. Probiotic added. 01/21 - Urine culture obtained - pending Blood cx - NGTD afebrile, no leukocytosis Hyponatremia, mild, likely hypovolemic, resolved CKD 3 continue IV fluids renal function stable. Recent C. difficile Patient reports recent C. diff infection at rehab after recent surgery. Was on isolation precautions for ~2 weeks while at rehab and was given oral abx while isolated. 12/31 - C. diff Ag positive, toxin negative. s/p PO vanc 12/31-01/15 01/12 - isolation precautions were discontinued at rehab as diarrhea frequency improved and was less watery / more formed. Monitor for diarrhea. Isolation precautions. Chronic diastolic CHF (20-24% EF 10/2024) Pulmonary hypertension Hypertension Hyperlipidemia History of colon cancer s/p right hemicolectomy and ileostomy reversal History of recent cholecystectomy confirm home meds, restart as appropriate Chronic anemia hgb stable. Daily labs. IDDM2 accu-cheks, SSI. Titrate semglee/lispro as needed. VTE: Lovenox Code: Full Dispo: Home vs snf, 2-3 days Time Spent Managing Pts Care (In Minutes): 55
[2025-01-22 04:51] LABS: Absolute Eosinophils 0.2 K/uL (0-0.5); Absolute Lymphocytes (CBC) 1.3 K/uL (0.7-4.9); Absolute Monocytes 0.6 K/uL (0.1-1.3); Absolute Neutrophil 2.7 K/uL (1.8-8.0); Basophils % 0.7 % (0-1.3); Eosinophils % 3.1 % (0-4.4); Hematocrit 32.1 % (39.6-49.0); Hemoglobin 11.1 g/dL (13.6-17.9); Lymphocytes % 27.9 % (15.3-44.8); MCH 31.4 pg (27.0-35.0); MCHC 34.5 g/dL (32.0-36.0); MPV 10.2 fL (7.6-11.3); Neutrophils % 56.3 % (41.7-73.7); Nucleated Red Blood Cells % 0.1 % (0-0); Platelets 126 thou/uL (152-406); RBC Red Blood Cell Count 3.53 M/uL (4.33-5.43); Red Cell Distribution Width 17.3 % (12.1-15.2)
[2025-01-22 05:58] LABS: Albumin 2.6 g/dL (3.4-5.0); Albumin/Globulin Ratio 0.6 (1.1-1.8); Anion Gap 10.2 mEq/L (5.0-15.0); Bilirubin Total 0.5 mg/dL (0.2-1.0); Globulin 4.2 g/dL (2.3-3.5); Magnesium 1.9 mg/dL (1.6-2.4); Potassium 4.2 mEq/L (3.5-5.1); Protein, Total 6.8 g/dL (6.4-8.2)
--- NOTE | 2025-01-22 08:47 | EKG ---
Test Date: 2025-01-19 Test Time: 20:34:52 [employer]: MM MEASUREMENT RESULTS: Intervals: Rate: 79 NM: 174 QRSD: 154 QT: 468 QTc: 536 [place]: P: 19 NM: 174 QRS: 209 T: 8 INTERPRETIVE STATEMENTS: Normal sinus rhythm Right bundle branch block Inferior infarct, age undetermined Anterolateral infarct, age undetermined Abnormal ECG Compared to ECG 10/29/2024 16:22:14 No significant changes Electronically Signed On 01-22-25 08:39:16 CDT by Jayson Johnson
--- NOTE | 2025-01-22 09:40 | P.PN ---
Date of Service: 01/22/25 Subjective: no acute events overnight afebrile ~3 loose BMs overnight, not full watery reports normal for him is 2-3 soft/formed stools/day since his hemicolectomy years ago states this is nothing compared to diarrhea he was having 2 weeks ago when told he had cdiff Physical Exam: GEN: Alert, oriented, NAD, cachectic CV: Regular rate and rhythm, no edema Pulm: Nonlabored respirations on room air, clear bilaterally ABD: soft, nontender, nondistended Neuro: Normal speech, normal affect Problem List: Emphysematous cystitis Syncope Generalized weakness Hyponatremia, mild, likely hypovolemic, resolved CKD 3 Recent C. difficile Chronic diastolic CHF (20-24% EF 10/2024) Pulmonary hypertension Hypertension Hyperlipidemia History of colon cancer s/p right hemicolectomy and ileostomy reversal History of recent cholecystectomy Chronic anemia IDDM2 Emphysematous cystitis Syncope Generalized weakness on admission, presents with worsening weakness/fatigue after syncopal episode at home. Reportedly slid off his bed while trying to stand up. CT head negative for any acute findings. CT chest/abd 01/19: emphysematous cystitis, moderate stool burden throughout mildly distended colon pt does report increased urinary frequency the last few days, reports h/o UTIs EMR notes ESBL in the past; low threshold to expand coverage if any worsening 01/17 - Urine culture at rehab prelim grew gram negative rods, >100k cfu/ml 01/18 - received 1 dose of Fosfomycin 3g for UTI 01/20 - continue IV rocephin (01/20-) dc azithromycin, do not suspect pneumonia. Probiotic added. 01/21 - Urine culture obtained - pending - delay may lead to inconclusive results Blood cx - NGTD afebrile, no leukocytosis 01/22 - Urine cx prelim 2+ GNR, between 10-100k cfu/ml asked nursing staff to obtain final urine culture results from rehab Stable. No new events. ID consult PT consulted ID consulted, will check c.diff, if toxin negative and stool not watery, can come off isolation Hyponatremia, mild, likely hypovolemic, resolved CKD 3 Improved with IV hydration stable off IV fluid renal function stable. Recent C. difficile Patient reports recent C. diff infection at rehab after recent surgery. Was on isolation precautions for ~2 weeks while at rehab and was given oral abx while isolated. 12/31 -at rehab - C. diff Ag positive, toxin negative. s/p PO Vanc 12/31-01/15 01/12 - isolation precautions were discontinued at rehab as diarrhea frequency improved and was less watery / more formed. Monitor for diarrhea. Isolation precautions. 01/22 describes it as loose - not complete watery, and "nothing like when had c. diff" Chronic diastolic CHF (20-24% EF 10/2024) Pulmonary hypertension Hypertension Hyperlipidemia History of colon cancer s/p right hemicolectomy and ileostomy reversal History of recent cholecystectomy restart as appropriate, BP was low, holding off on restarting all anti- hypertensives Chronic anemia hgb stable. Daily labs. IDDM2 accu-cheks, SSI. Titrate semglee/lispro as needed. VTE: Lovenox Code: Full Dispo: Home vs SNF, 1-2 days Time Spent Managing Pts Care (In Minutes): 55
--- NOTE | 2025-01-22 18:50 | CON ---
History Of Present Illness: This is a 54-year-old male I was consulted for evaluation of C difficile colitis and cystitis. The patient has a significant past medical history of chronic systolic heart failure with AICD placement, diabetes mellitus, hypertension, colon cancer with bowel resection causing bowel movements daily. He has been treated for C difficile 2 weeks ago and his toxin was negative and antigen was present at that time. The patient feels much better today. Denies any chest pain, abdominal pain, constipation. Past Medical History: As per HPI. Social History: Nonsmoker, nondrinker. Family History: Noncontributory. Medications: Rocephin. See MARs for other medications. Allergies: MORPHINE. Review of Systems: A 10-point review was performed. Physical Examination: General: This is a 54-year-old male, lying in bed, not in any acute cardiopulmonary distress. Vital Signs: Temperature 97, pulse 91, respirations 18, blood pressure 106/71. HEENT: Unremarkable. Neck: Supple. Lungs: Basal crackles. Heart: S1, S2. Regular. Abdomen: Soft. Bowel sounds present. Extremities: No edema. Muscle wasting noted. Laboratory Data: Shows WBC 4.8, hemoglobin 11.1, platelets 126. Chemistry shows BUN 57, creatinine 0.8. Urinalysis shows wbc's 20-50. CT abdomen and pelvis and chest shows patient has moderate stool retention throughout the mildly distended colon. Emphysematous cystitis also noted. Patchy opacity in the posterior right lung is likely pneumonitis, 11 mm nodule in the right middle lobe, unchanged since 04/08/2023. Assessment And Plan: Emphysematous cystitis in a 54-year-old male currently being treated with Rocephin. Urine cultures are growing 10,000 to 100,000 2+ gram-negative rods. Blood cultures are negative to date. Consider getting Clostridium difficile testing on his stools if he has watery bowel movement. Continue to monitor for signs of infection with WBC and fever trend. No other recommendation. Continue probiotic and we will follow the patient as needed. Thank you for consult. DEXTER/SILVIA Voice ID: [id number] Report ID: [id number] [facility] CENTERStephania
[2025-01-23 04:48] LABS: Hematocrit 32.1 % (39.6-49.0); Hemoglobin 11.1 g/dL (13.6-17.9); MCH 31.6 pg (27.0-35.0); MCHC 34.5 g/dL (32.0-36.0); MCV 91.6 fL (80-100); MPV 10.3 fL (7.6-11.3); Platelets 118 thou/uL (152-406); Red Cell Distribution Width 16.8 % (12.1-15.2)
[2025-01-23 05:21] LABS: Albumin 2.6 g/dL (3.4-5.0); Albumin/Globulin Ratio 0.7 (1.1-1.8); Anion Gap 10.5 mEq/L (5.0-15.0); Bilirubin Total 0.4 mg/dL (0.2-1.0); Phosphorus 1.8 mg/dL (2.5-4.9); Potassium 4.5 mEq/L (3.5-5.1); Protein, Total 6.6 g/dL (6.4-8.2)
[2025-01-23] MEDS: Meropenem 1,000 MG in NA CHLORIDE 0.9% 100 ML IV SCH (09:12)
[2025-01-23] MEDS: POTASS/SODIUM PHOSPHATE 1 PKT POWD.PACK PO SCH (09:13)
--- NOTE | 2025-01-23 09:59 | P.PN ---
Date of Service: 01/23/25 Subjective: no acute events overnight 1 BM overnight stool more soft and formed today afebrile Physical Exam: GEN: NAD CV: Regular rate and rhythm, no edema Pulm: Nonlabored respirations on room air, clear bilaterally ABD: soft, nontender, nondistended Neuro: Normal speech, normal affect Problem List: Emphysematous cystitis secondary to Klebsiella Pneumoniae ESBL Syncope Generalized weakness Hyponatremia, mild, likely hypovolemic, resolved CKD 3 Recent C. 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 Reportedly slid off his bed while trying to stand up. CT head negative for any acute findings. CT chest/abd 01/19: emphysematous cystitis, moderate stool burden throughout mildly distended colon pt does report increased urinary frequency the last few days, reports h/o UTIs EMR notes ESBL in the past; low threshold to expand coverage if any worsening 01/17 - Urine culture at rehab prelim grew gram negative rods, >100k cfu/ml 01/18 - received 1 dose of Fosfomycin 3g for UTI 01/20 - IV rocephin (01/20-01/23) dc azithromycin, do not suspect pneumonia. Probiotic added. 01/21 - Urine culture obtained - pending Blood cx - NGTD afebrile, no leukocytosis 01/22 - Urine cx prelim 2+ GNR, between 10-100k cfu/ml ID consulted, will check c.diff, if toxin negative and stool not watery, can come off isolation PT consulted 01/23 - Urine culture growing Klebsiella Pneumoniae ESBL switch Rocephin to IV Merrem given cx results. PICC ordered will need 2 weeks IV abx Hyponatremia, mild, likely hypovolemic, resolved CKD 3 Improved with IV hydration stable off IV fluid renal function stable. Recent C. difficile Patient reports recent C. diff infection at rehab after recent surgery. Was on isolation precautions for ~2 weeks while at rehab and was given oral abx while isolated. 12/31 - At rehab - C. diff Ag positive, toxin negative. 01/12 - isolation precautions were discontinued at rehab as diarrhea frequency improved and was less watery / more formed. 01/15 - s/p oral Vanc at rehab (12/31-01/15) 01/22 - Describes BM as loose - not complete watery, and "nothing like when had c. diff" C. diff ag/tox ordered; uncollected 01/23 - Stool soft, more formed today dc isolation precautions. Monitor for diarrhea. Chronic diastolic CHF (20-24% EF 10/2024) Pulmonary hypertension Hypertension Hyperlipidemia History of colon cancer s/p right hemicolectomy and ileostomy reversal History of recent cholecystectomy continue Mexitil, flomax, statin BP has been low to low-normal throughout hospitalization holding off on restarting all anti-hypertensives Chronic anemia hgb stable. Daily labs. IDDM2 accu-cheks, SSI. Titrate semglee/lispro as needed. VTE: Lovenox Code: Full Dispo: SNF for IV abx, PT Time Spent Managing Pts Care (In Minutes): 55
[2025-01-23] MEDS ORDERED: GLUCAGON 1 MG/VIAL IM PRN (15:27)
[2025-01-23] MEDS ORDERED: D10W 125 ML IV PRN (15:27)
--- NOTE | 2025-01-23 17:56 | PN ---
Subjective: The patient is lying in bed. No new acute event. Chart reviewed. Objective: Vital Signs: Reviewed. Lungs: Basal crackles. Heart: S1, S2. Regular. Abdomen: Soft, nontender. Bowel sounds present. Extremities: No edema. Muscle wasting noted. Laboratory Data: Shows WBC 5.1, hemoglobin 11.1, platelets 118. Chemistry shows GFR of 108. Assessment And Plan: 1. Klebsiella pneumoniae, extended-spectrum beta-lactamase cystitis. 2. Anemia of chronic disease. 3. Diarrhea, most likely secondary to short-bowel syndrome versus colitis. Continue current treatmen t. We will follow the patient as needed. Recommend probiotic and monitor signs of infection with WB C and fever trends. NF/MODL Voice ID: [id number] Report ID: [id number]
[2025-01-23] MEDS: Mupirocin NASAL 2 APPL/1 GM TUBE NAS SCH (21:53)
--- NOTE | 2025-01-23 22:30 | RAD REPORT ---
EXAM: Chest Single View HISTORY: 54 years Male PICC line placement COMPARISON: 01/19/2025 FINDINGS: LUNGS/PLEURA: Right pleural effusion with underlying atelectasis and/or airspace disease. CARDIAC/MEDIASTINUM: Moderate cardiomegaly. UPPER ABDOMEN: No significant abnormality. BONES: No acute abnormality. LINES/TUBES/OTHER: Right subclavian approach PICC with tip at the distal SVC. Pacemaker/AICD. IMPRESSION: PICC tip in satisfactory position at the distal SVC. Small right pleural effusion with underlying ate lectasis and/or airspace disease is similar.
[2025-01-24 07:22] LABS: Anion Gap 7.7 mEq/L (5.0-15.0); Potassium 4.7 mEq/L (3.5-5.1)
[2025-01-24] MEDS ORDERED: POTASS/SODIUM PHOSPHATE 1 PKT POWD.PACK PO SCH (08:00)
[2025-01-24] MEDS: POTASS/SODIUM PHOSPHATE 1 PKT POWD.PACK PO SCH (09:13)
--- NOTE | 2025-01-24 11:49 | P.PN ---
Date of Service: 01/24/25 Subjective: PICC placed overnight BP low-normal afebrile reports BMs slightly more loose/watery, had ~4-5 small volume since last evening Physical Exam: GEN: NAD CV: Regular rate and rhythm, no edema Pulm: Nonlabored respirations on room air, clear bilaterally ABD: soft, nontender, nondistended Neuro: Normal speech, normal affect Problem List: Emphysematous cystitis secondary to Klebsiella Pneumoniae ESBL Syncope Generalized weakness Hyponatremia, mild, likely hypovolemic, resolved CKD 3 Recent C. 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 Reportedly slid off his bed while trying to stand up. CT head negative for any acute findings. CT chest/abd 01/19: emphysematous cystitis, moderate stool burden throughout mildly distended colon 01/20 - IV rocephin (01/20-01/23) dc azithromycin, do not suspect pneumonia. Probiotic added. 01/21 - Urine culture obtained - pending Blood cx - NGTD afebrile, no leukocytosis 01/22 - Urine cx prelim 2+ GNR, between 10-100k cfu/ml ID consulted, will check c.diff, if toxin negative and stool not watery, can come off isolation PT consulted 01/23 - Urine culture growing Klebsiella Pneumoniae ESBL switch Rocephin to IV Merrem given cx results. 01/24 - PICC line placed overnight for IV antibiotics - needs 2 weeks total. Stable. No acute events. Hyponatremia, mild, likely hypovolemic, resolved CKD 3 Improved with IV hydration stable off IV fluid renal function stable. Recent C. difficile Patient reports recent C. diff infection at rehab after recent surgery. Was on isolation precautions for ~2 weeks while at rehab and was given oral abx while isolated. 12/31 - At rehab - C. diff Ag positive, toxin negative. 01/12 - isolation precautions were discontinued at rehab as diarrhea frequency improved and was less watery / more formed. 01/15 - s/p oral Vanc at rehab (12/31-01/15) 01/22 - Describes BM as loose - not complete watery, and "nothing like when had c. diff" C. diff ag/tox ordered; uncollected 01/23 - Stool soft, more formed today dc isolation precautions. Monitor for diarrhea. 01/24 - stool slightly more loose / watery; no worsening abd pain, otherwise feels continued improvement continue to monitor Chronic diastolic CHF (20-24% EF 10/2024) Pulmonary hypertension Hypertension Hyperlipidemia History of colon cancer s/p right hemicolectomy and ileostomy reversal History of recent cholecystectomy continue Mexitil, flomax, statin BP has been low to low-normal throughout hospitalization holding off on restarting all anti-hypertensives Chronic anemia hgb stable. Daily labs. IDDM2 continue semglee switch AC lispro to sliding scale ACHS pt states he doesn't take long acting insulin when fasting is < 130 VTE: Lovenox Code: Full Dispo: SNF for IV abx, PT Pending SNF approval Time Spent Managing Pts Care (In Minutes): 55
[2025-01-24] MEDS: INSULIN REGULAR (HUMAN) 100 UNIT/ML SQ SCH (21:05)
[2025-01-25] MEDS: ONDANSETRON 4 MG/2 ML VIAL IV PRN (03:30)
[2025-01-25 06:54] LABS: Hematocrit 30.7 % (39.6-49.0); Hemoglobin 10.2 g/dL (13.6-17.9); MCH 31.2 pg (27.0-35.0); MCHC 33.3 g/dL (32.0-36.0); MCV 93.7 fL (80-100); Platelets 124 thou/uL (152-406); RBC Red Blood Cell Count 3.27 M/uL (4.33-5.43); Red Cell Distribution Width 17.5 % (12.1-15.2)
[2025-01-25 07:11] LABS: Anion Gap 5.8 mEq/L (5.0-15.0); Potassium 3.8 mEq/L (3.5-5.1)
[2025-01-25 07:17] LABS: Phosphorus 1.5 mg/dL (2.5-4.9)
[2025-01-25] MEDS: POTASSIUM PHOS IN 0.9 % NACL 15 MMOL/250 ML BAG IV ONE (09:21)
[2025-01-25] MEDS: PANTOPRAZOLE 40MG TABLET PO SCH (09:22)
--- NOTE | 2025-01-25 09:42 | P.PN ---
Date of Service: 01/25/25 Subjective: dealing with some nausea that started yesterday evening 3 episodes of loose stool overnight, more soft/formed slightly more tachycardic today, HR 120-130s afebrile Physical Exam: GEN: NAD CV: Sinus tachycardia, no edema Pulm: Nonlabored respirations on room air, clear bilaterally ABD: soft, nontender, nondistended Neuro: Normal speech, normal affect Problem List: Emphysematous cystitis secondary to Klebsiella Pneumoniae ESBL Syncope Generalized weakness Recent C. difficile Intractable Nausea Hx esophageal ulcers (Oct 2024) Hx recent cholecystectomy (12/25/24) Hx colon cancer s/p right hemicolectomy and ileostomy reversal Hyponatremia, mild, likely hypovolemic, resolved CKD 3 Chronic diastolic CHF (20-24% EF 10/2024) Pulmonary hypertension Hypertension Hyperlipidemia Chronic anemia IDDM2 Emphysematous cystitis secondary to Klebsiella Pneumoniae ESBL Syncope Generalized weakness on admission, presents with worsening weakness/fatigue after syncopal episode at home. Reportedly slid off his bed while trying to stand up. CT head negative for any acute findings. CT chest/abd 01/19: emphysematous cystitis, moderate stool burden throughout mildly distended colon 01/20 - IV rocephin (01/20-01/23) dc azithromycin, do not suspect pneumonia. Probiotic added. 01/21 - Urine culture obtained - pending Blood cx - NGTD afebrile, no leukocytosis 01/22 - Urine cx prelim 2+ GNR, between 10-100k cfu/ml ID consulted, will check c.diff, if toxin negative and stool not watery, can come off isolation PT consulted 01/23 - Urine culture growing Klebsiella Pneumoniae ESBL switch Rocephin to IV Merrem given cx results. 01/24 - PICC line placed overnight for IV antibiotics - needs 2 weeks total. 01/25 - Stable. Afebrile, no leukocytosis. Continue PT Recent C. difficile Patient reports recent C. diff infection at rehab after recent surgery. Was on isolation precautions for ~2 weeks while at rehab and was given oral abx while isolated. 12/31 - At rehab - C. diff Ag positive, toxin negative. 01/12 - isolation precautions were discontinued at rehab as diarrhea frequency improved and was less watery / more formed. 01/15 - s/p oral Vanc at rehab (12/31-01/15) 01/22 - Describes BM as loose - not complete watery, and "nothing like when had c. diff" C. diff ag/tox ordered; uncollected 01/23 - Stool soft, more formed today dc isolation precautions. Monitor for diarrhea. 01/24 - stool slightly more loose / watery; no worsening abd pain, otherwise feels continued improvement 01/25 - 3 episodes of loose stool overnight, more soft/formed Intractable Nausea Hx esophageal ulcers (Oct 2024) Hx recent cholecystectomy (12/25/24) Hx colon cancer s/p right hemicolectomy and ileostomy reversal confirm home meds, restart as appropriate Had EGD back in Oct 2024 which noted esophageal ulcers, musocal sloughing in the lower third of the esophagus, gastritis 01/25 - reports some nausea that started yesterday evening restart home pantoprazole 40 mg BID Hyponatremia, mild, likely hypovolemic, resolved CKD 3 Improved with IV hydration stable off IV fluid renal function stable. Chronic diastolic CHF (20-24% EF 10/2024) Pulmonary hypertension Hypertension Hyperlipidemia continue flomax, statin BP has been low to low-normal throughout hospitalization 01/25 home med list completed; dc mexiletine and bicarb tabs that were started on admission when listed as home med. new list does not have these meds as active Chronic anemia hgb stable. Daily labs. IDDM2 dc semglee switch AC lispro to sliding scale ACHS pt states he doesn't take long acting insulin when fasting is < 130 VTE: Lovenox Code: Full Dispo: SNF for IV abx, PT Pending SNF approval Time Spent Managing Pts Care (In Minutes): 55
[2025-01-25] MEDS: carvediloL 6.25 MG TAB PO SCH (18:40)
[2025-01-25] MEDS: BUSPIRONE HCL 5 MG TABLET PO SCH (21:50)
[2025-01-25] MEDS: ATORVASTATIN 20 MG TAB PO SCH (21:50)
[2025-01-26 04:38] LABS: Absolute Basophils 0.1 K/uL (0-0.5); Absolute Eosinophils 0.2 K/uL (0-0.5); Absolute Lymphocytes (CBC) 0.9 K/uL (0.7-4.9); Absolute Monocytes 0.6 K/uL (0.1-1.3); Absolute Neutrophil 6.1 K/uL (1.8-8.0); Basophils % 0.8 % (0-1.3); Eosinophils % 2.8 % (0-4.4); Hematocrit 29.4 % (39.6-49.0); Lymphocytes % 11.8 % (15.3-44.8); MCH 31.5 pg (27.0-35.0); MCV 92.6 fL (80-100); MPV 9.6 fL (7.6-11.3); Monocytes % 7.2 % (3.3-12.3); Neutrophils % 77.4 % (41.7-73.7); Nucleated Red Blood Cells % 0.1 % (0-0); Platelets 120 thou/uL (152-406); RBC Red Blood Cell Count 3.17 M/uL (4.33-5.43)
[2025-01-26 05:12] LABS: Albumin 2.3 g/dL (3.4-5.0); Albumin/Globulin Ratio 0.6 (1.1-1.8); Anion Gap 8.9 mEq/L (5.0-15.0); Bilirubin Total 0.5 mg/dL (0.2-1.0); Globulin 4.1 g/dL (2.3-3.5); Magnesium 1.7 mg/dL (1.6-2.4); Potassium 4.9 mEq/L (3.5-5.1); Protein, Total 6.4 g/dL (6.4-8.2)
[2025-01-26] MEDS: POTASS/SODIUM PHOSPHATE 1 PKT POWD.PACK PO SCH (08:49)
[2025-01-26] MEDS: ESCITALOPRAM OXALATE 10 MG TABLET PO SCH (08:53)
[2025-01-26] MEDS: MAGNESIUM SULFATE 1 gm IVPB 1 GM/100 ML BAG IV ONE (08:57)
--- NOTE | 2025-01-26 11:03 | P.PN ---
Date of Service: 01/26/25 Subjective: 2 large BM with loose stool overnight Continue with Tachycardia; slightly improved in 100-110s breathing okay on room air afebrile Physical Exam: GEN: NAD CV: Sinus tachycardia, no edema Pulm: Nonlabored respirations on room air, clear bilaterally ABD: soft, nontender, nondistended Neuro: Normal speech, normal affect Problem List: Emphysematous cystitis secondary to Klebsiella Pneumoniae ESBL Syncope Generalized weakness Recent C. difficile Intractable Nausea Hx esophageal ulcers (Oct 2024) Hx recent cholecystectomy (12/25/24) Hx colon cancer s/p right hemicolectomy and ileostomy reversal Hyponatremia, mild, likely hypovolemic, resolved CKD 3 Chronic diastolic CHF (20-24% EF 10/2024) Pulmonary hypertension Hypertension Hyperlipidemia Chronic anemia IDDM2 Emphysematous cystitis secondary to Klebsiella Pneumoniae ESBL Syncope Generalized weakness on admission, presents with worsening weakness/fatigue after syncopal episode at home. Reportedly slid off his bed while trying to stand up. CT head negative for any acute findings. CT chest/abd 01/19: emphysematous cystitis, moderate stool burden throughout mildly distended colon 01/20 - IV rocephin (01/20-01/23) dc azithromycin, do not suspect pneumonia. Probiotic added. 01/21 - Urine culture obtained - pending Blood cx - NGTD afebrile, no leukocytosis 01/22 - Urine cx prelim 2+ GNR, between 10-100k cfu/ml ID consulted, will check c.diff, if toxin negative and stool not watery, can come off isolation PT consulted 01/23 - Urine culture growing Klebsiella Pneumoniae ESBL switch Rocephin to IV Merrem given cx results. 01/24 - PICC line placed overnight for IV antibiotics 01/25 - Stable. Afebrile, no leukocytosis. 01/26 - Continue IV merrem for 2 weeks total (End date: 02/05/25) can be invanz Recent C. difficile Patient reports recent C. diff infection at rehab after recent surgery. Was on isolation precautions for ~2 weeks while at rehab and was given oral abx while isolated. 12/31 - At rehab - C. diff Ag positive, toxin negative. 01/12 - isolation precautions were discontinued at rehab as diarrhea frequency improved and was less watery / more formed. 01/15 - s/p oral Vanc at rehab (12/31-01/15) 01/22 - Describes BM as loose - not complete watery, and "nothing like when had c. diff" C. diff ag/tox ordered; uncollected 01/23 - Stool soft, more formed today dc isolation precautions. Monitor for diarrhea. 01/24 - stool slightly more loose / watery; no worsening abd pain, otherwise feels continued improvement 01/25 - 3 episodes of loose stool overnight, more soft/formed 01/26 - 2 large BM with loose stool today no foul odor, not consistent with cdiff start questran Intractable Nausea Hx esophageal ulcers (Oct 2024) Hx recent cholecystectomy (12/25/24) Hx colon cancer s/p right hemicolectomy and ileostomy reversal confirm home meds, restart as appropriate Had EGD back in Oct 2024 which noted esophageal ulcers, musocal sloughing in the lower third of the esophagus, gastritis 01/25 - reports some nausea that started yesterday evening restart home pantoprazole 40 mg BID 01/26 - Nausea improved. Hyponatremia, mild, likely hypovolemic, resolved CKD 3 Improved with IV hydration stable off IV fluid renal function stable. Chronic diastolic CHF (20-24% EF 10/2024) Pulmonary hypertension Hypertension Hyperlipidemia continue flomax, statin BP has been low to low-normal throughout hospitalization 01/25 home med list completed; dc mexiletine and bicarb tabs that were started on admission when listed as home med. new list does not have these meds as active Chronic anemia hgb stable. Daily labs. IDDM2 dc semglee switch AC lispro to sliding scale ACHS pt states he doesn't take long acting insulin when fasting is < 130 VTE: Lovenox Code: Full Dispo: SNF for IV abx, PT Pending SNF approval, improvement of diarrhea Time Spent Managing Pts Care (In Minutes): 55
[2025-01-26] MEDS: CHOLESTYRAMINE/ASP 4 GM/PKT PO SCH (15:00)
--- NOTE | 2025-01-26 16:27 | PN ---
Subjective: The patient lying in bed, having some loose motion, otherwise feeling better today. Den ies any other problems. Objective: Vital signs: Reviewed. Lungs: Basal crackles. Heart: S1, S2. Regular. Abdomen: Soft, nontender. Bowel sounds present. Extremities: No edema. Muscle wasting noted. Laboratory Data: Shows WBC 7.9, hemoglobin 10, platelets 120. Chemistry shows BUN of 42, creatinine 0.6. Albumin level is 2.3. Micro data; Klebsiella pneumoniae, ESBL in the urine. The patient curr ently on meropenem. Assessment And Plan: Urosepsis. Urosepsis secondary to Klebsiella pneumoniae, extended-spectrum beta-lactamase, being treated with me ropenem. Diarrhea secondary to short bowel syndrome. Anemia of chronic disease. Moderate protein-calorie malnourishment. Monitor signs of infection with WBC and fever trends. NF/MODL Voice ID: [id number] Report ID: [id number]
[2025-01-27 04:53] LABS: Absolute Eosinophils 0.2 K/uL (0-0.5); Absolute Lymphocytes (CBC) 1.1 K/uL (0.7-4.9); Absolute Monocytes 0.5 K/uL (0.1-1.3); Absolute Neutrophil 6.3 K/uL (1.8-8.0); Basophils % 0.5 % (0-1.3); Eosinophils % 2.3 % (0-4.4); Hematocrit 29.5 % (39.6-49.0); Hemoglobin 10.1 g/dL (13.6-17.9); Lymphocytes % 13.6 % (15.3-44.8); MCH 31.9 pg (27.0-35.0); MCHC 34.1 g/dL (32.0-36.0); MCV 93.5 fL (80-100); MPV 9.6 fL (7.6-11.3); Monocytes % 5.6 % (3.3-12.3); Platelets 143 thou/uL (152-406); RBC Red Blood Cell Count 3.16 M/uL (4.33-5.43); Red Cell Distribution Width 17.2 % (12.1-15.2)
[2025-01-27 04:58] LABS: Anion Gap 8.6 mEq/L (5.0-15.0); Magnesium 2.1 mg/dL (1.6-2.4); Phosphorus 2.7 mg/dL (2.5-4.9); Potassium 4.6 mEq/L (3.5-5.1)
--- NOTE | 2025-01-27 12:23 | PN ---
The patient lying in bed, concerned about diarrhea and vomiting today. The patient currently being t reated with meropenem for urosepsis secondary to Klebsiella pneumoniae, ESBL, worsening diarrhea and vomiting, possibly stopping the antibiotic. Short bowel syndrome. Anemia of chronic disease. Rule out C diff. Continue Questran and probiotics. We will follow the patient as needed. NF/MODL Voice ID: [id number] Report ID: [id number]
[2025-01-27] MEDS: FIDAXOMICIN 200 MG TABLET PO SCH ×2 (14:45→21:00)
--- NOTE | 2025-01-27 15:11 | P.PN ---
Subjective Date of Service: 01/27/25 Chief Complaint: Syncope Patient reports diarrhea. He has no other complaint. He has been afebrile. He is tolerating diet. Physical Examination - Vital Signs Temperature: 98.2 F Blood Pressure: 98/64 Pulse: 111 Respirations: 16 Pulse Ox (%): 99 Assessment And Plan - Plan Physical examination General: Alert and oriented x3, NAD, cachectic. HEENT: Conjunctiva not pale, anicteric sclera Neck: Supple, no elevated JVD Heart: Heart sounds 1 and 2 normal, regular rhythm, normal rate, no pedal edema Lungs: Clear to auscultation bilaterally, adequate breath sounds bilaterally, no rhonchi or crackles. Abdomen: Soft, nondistended, nontender, normal bowel sounds. Extremities: No tenderness, no deformity Skin: Normal skin turgor, no rash, no nodules or ulcers. Neuro: No focal motor deficit. Normal speech. Psychiatry: Normal mood, no agitation. 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 difficile Intractable Nausea Hx esophageal ulcers (Oct 2024) Hx recent cholecystectomy (12/25/24) Hx colon cancer s/p right hemicolectomy and ileostomy reversal Hyponatremia, mild, likely hypovolemic, resolved CKD 3 Chronic diastolic CHF (20-24% EF 10/2024) Pulmonary hypertension Hypertension Hyperlipidemia Chronic anemia IDDM2 Emphysematous cystitis secondary to Klebsiella Pneumoniae ESBL Syncope Generalized weakness CT chest/abd 01/19: emphysematous cystitis, moderate stool burden throughout mildly distended colon Status post IV rocephin (01/20-01/23) Urine culture growing Klebsiella Pneumoniae ESBL Antibiotics switched to IV meropenem PICC line placed for prolonged antibiotic therapy. Infectious disease evaluated patient and recommended 2 weeks of IV meropenem Recent C. difficile Patient reports recent C. diff infection at rehab after recent surgery. Was on isolation precautions for ~2 weeks while at rehab and was given oral abx while isolated. At rehab - C. diff Ag positive, toxin negative. Patient has diarrhea. Start treatment for C. difficile-Dificid Intractable Nausea Hx esophageal ulcers (Oct 2024) Hx recent cholecystectomy (12/25/24) Hx colon cancer s/p right hemicolectomy and ileostomy reversal confirm home meds, restart as appropriate Had EGD back in Oct 2024 which noted esophageal ulcers, musocal sloughing in the lower third of the esophagus, gastritis Continue Protonix Diet as tolerated. Hyponatremia, mild, likely hypovolemic, resolved CKD 3 Improved with IV hydration Stable Chronic diastolic CHF (20-24% EF 10/2024) Pulmonary hypertension Hypertension Hyperlipidemia continue statin BP has been low to low-normal throughout hospitalization Chronic anemia hgb stable. Daily labs. IDDM2 Insulin sliding scale pt states he doesn't take long acting insulin when fasting is < 130 VTE: Lovenox Code: Full Dispo: SNF for IV abx, PT Pending SNF approval.
[2025-01-27] MEDS ORDERED: FIDAXOMICIN 200 MG TABLET PO SCH (21:00)
[2025-01-28 01:44] LABS: C.diff Antigen/Toxin Ag neg : Tox neg (NEG : NEG); CDIFF INTERNAL NEG CONTROL White Background (WHITE BKGD); STOOL CONSISTENCY Liquid/Semi-Solid
[2025-01-28 04:50] LABS: Absolute Basophils 0.1 K/uL (0-0.5); Absolute Eosinophils 0.2 K/uL (0-0.5); Absolute Monocytes 0.5 K/uL (0.1-1.3); Absolute Neutrophil 5.8 K/uL (1.8-8.0); Basophils % 0.7 % (0-1.3); Eosinophils % 2.7 % (0-4.4); Hematocrit 28.7 % (39.6-49.0); Hemoglobin 9.6 g/dL (13.6-17.9); Lymphocytes % 13.4 % (15.3-44.8); MCH 31.3 pg (27.0-35.0); MCHC 33.3 g/dL (32.0-36.0); MCV 94.1 fL (80-100); MPV 9.5 fL (7.6-11.3); Monocytes % 7.2 % (3.3-12.3); Platelets 143 thou/uL (152-406); RBC Red Blood Cell Count 3.05 M/uL (4.33-5.43); Red Cell Distribution Width 17.3 % (12.1-15.2)
[2025-01-28 05:04] LABS: Anion Gap 12.1 mEq/L (5.0-15.0); Phosphorus 2.7 mg/dL (2.5-4.9); Potassium 4.1 mEq/L (3.5-5.1)
--- NOTE | 2025-01-28 11:00 | P.PN ---
Date of Service: 01/28/25 Subjective The patient lying in bed, denied N/V/D. no new concern.report doing well. Objective Temp Pulse Resp BP Pulse Ox 97.4 F 90 20 101/72 99 01/28/25 08:00 01/28/25 08:00 01/28/25 08:00 01/28/25 08:00 01/28/25 08:00 Laboratory Results 01/21/25 K. Pneumoniae ESBL 01/20/25 Blood culture negative no growth for 5 days WBC 7.6, hemoglobin 9.6 BUN 48. creatinine 0.80 Assessment/planning -The patient was treated with meropenem for urosepsis secondary to Klebsiella pneumoniae, ESBL. abx was dc due to worsening diarrhea and vomiting C diff negative on 01/27/25 Can start back on abx once diarrhea subsided monitor wbc and fever trend -Short bowel syndrome. Continue Questran and probiotics. -Anemia of chronic disease. We will follow the patient as needed. Pt was seen and Dr Avila is in agreement with plan above
--- NOTE | 2025-01-28 14:11 | P.PN ---
Subjective Date of Service: 01/28/25 Chief Complaint: Syncope Patient reports decreased frequency in his diarrhea. He denies any abdominal pain. He is tolerating diet. Physical Examination - Vital Signs Temperature: 97.2 F Blood Pressure: 88/61 Pulse: 86 Respirations: 20 Pulse Ox (%): 100 Assessment And Plan - Plan Physical examination General: Alert and oriented x3, NAD, cachectic. HEENT: Conjunctiva not pale, anicteric sclera Heart: Heart sounds 1 and 2 normal, regular rhythm, normal rate, no pedal edema Lungs: Clear to auscultation bilaterally, adequate breath sounds bilaterally, no rhonchi or crackles. Abdomen: Soft, nondistended, nontender, normal bowel sounds. Extremities: No tenderness, no deformity Skin: Normal skin turgor, no rash. Neuro: No focal motor deficit. Normal speech. Psychiatry: Normal mood, no agitation. 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 difficile Intractable Nausea Hx esophageal ulcers (Oct 2024) Hx recent cholecystectomy (12/25/24) Hx colon cancer s/p right hemicolectomy and ileostomy reversal Hyponatremia, mild, likely hypovolemic, resolved CKD 3 Chronic diastolic CHF (20-24% EF 10/2024) Pulmonary hypertension Hypertension Hyperlipidemia Chronic anemia IDDM2 Emphysematous cystitis secondary to Klebsiella Pneumoniae ESBL Syncope Generalized weakness CT chest/abd 01/19: emphysematous cystitis, moderate stool burden throughout mildly distended colon Status post IV rocephin (01/20-01/23) Urine culture growing Klebsiella Pneumoniae ESBL Antibiotics switched to IV meropenem PICC line placed for prolonged antibiotic therapy. Infectious disease evaluated patient and recommended 2 weeks of IV meropenem Recent C. difficile Patient reports recent C. diff infection at rehab after recent surgery. Was on isolation precautions for ~2 weeks while at rehab and was given oral abx while isolated. At rehab - C. diff Ag positive, toxin negative. Patient has diarrhea. Start treatment for C. difficile-Dificid Intractable Nausea Hx esophageal ulcers (Oct 2024) Hx recent cholecystectomy (12/25/24) Hx colon cancer s/p right hemicolectomy and ileostomy reversal confirm home meds, restart as appropriate Had EGD back in Oct 2024 which noted esophageal ulcers, musocal sloughing in the lower third of the esophagus, gastritis Continue Protonix Diet as tolerated. Hyponatremia, mild, likely hypovolemic, resolved CKD 3 Improved with IV hydration Stable Chronic diastolic CHF (20-24% EF 10/2024) Pulmonary hypertension Hypertension Hyperlipidemia continue statin BP has been low to low-normal throughout hospitalization Chronic anemia hgb stable. Daily labs. IDDM2 Insulin sliding scale pt states he doesn't take long acting insulin when fasting is < 130 01/28 Diarrhea frequency has significantly reduced Patient just completed oral vancomycin for C. difficile. Patient started on Dificid. Infectious disease Dr. Avila is following and recommend holding meropenem for now. Patient has completed 7 days of IV antibiotics for emphysematous cystitis. Monitor. Increase activity as tolerated Continue PT Patient is being evaluated for SNF placement. VTE: Lovenox Code: Full Dispo: SNF for PT
[2025-01-28] MEDS: SODIUM BICARB 325 MG TAB PO SCH (20:10)
[2025-01-29 05:03] LABS: Absolute Eosinophils 0.2 K/uL (0-0.5); Absolute Lymphocytes (CBC) 0.8 K/uL (0.7-4.9); Absolute Monocytes 0.5 K/uL (0.1-1.3); Absolute Neutrophil 4.8 K/uL (1.8-8.0); Basophils % 0.4 % (0-1.3); Eosinophils % 2.9 % (0-4.4); Hematocrit 27.9 % (39.6-49.0); Hemoglobin 9.4 g/dL (13.6-17.9); Lymphocytes % 12.5 % (15.3-44.8); MCH 31.3 pg (27.0-35.0); MCHC 33.7 g/dL (32.0-36.0); MCV 92.9 fL (80-100); MPV 9.8 fL (7.6-11.3); Monocytes % 8.3 % (3.3-12.3); Neutrophils % 75.9 % (41.7-73.7); Platelets 129 thou/uL (152-406); RBC Red Blood Cell Count 3.01 M/uL (4.33-5.43)
[2025-01-29 05:08] LABS: Anion Gap 9.9 mEq/L (5.0-15.0); Potassium 3.9 mEq/L (3.5-5.1)
[2025-01-29] MEDS: POTASSIUM 25 MEQ EFFERV TAB PO ONE (09:45)
--- NOTE | 2025-01-29 13:57 | P.PN ---
Subjective Date of Service: 01/29/25 Chief Complaint: Syncope Patient reports significant improvement in his diarrhea. He reported normal diarrhea bowel movement since this morning. He denies any abdominal pain. He is tolerating diet. Physical Examination - Vital Signs Temperature: 97.3 F Blood Pressure: 98/63 Pulse: 91 Respirations: 20 Pulse Ox (%): 99 Assessment And Plan - Plan Physical examination General: Alert and oriented x3, NAD, cachectic. HEENT: anicteric sclera Heart: Heart sounds 1 and 2 normal, regular rhythm, normal rate, no pedal edema Lungs: Clear to auscultation bilaterally, adequate breath sounds bilaterally, no rhonchi or crackles. Abdomen: Soft, nondistended, nontender, normal bowel sounds. Extremities: No tenderness, no deformity Skin: Normal skin turgor, no rash. Neuro: No focal motor deficit. Normal speech. Psychiatry: Normal mood, no agitation. 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 difficile Intractable Nausea Hx esophageal ulcers (Oct 2024) Hx recent cholecystectomy (12/25/24) Hx colon cancer s/p right hemicolectomy and ileostomy reversal Hyponatremia, mild, likely hypovolemic, resolved CKD 3 Chronic diastolic CHF (20-24% EF 10/2024) Pulmonary hypertension Hypertension Hyperlipidemia Chronic anemia IDDM2 Severe protein calorie malnutrition Metabolic acidosis Emphysematous cystitis secondary to Klebsiella Pneumoniae ESBL Syncope Generalized weakness CT chest/abd 01/19: emphysematous cystitis, moderate stool burden throughout mildly distended colon Status post IV rocephin (01/20-01/23) Urine culture growing Klebsiella Pneumoniae ESBL Antibiotics switched to IV meropenem PICC line placed for prolonged antibiotic therapy. Infectious disease evaluated patient and recommended 2 weeks of IV meropenem Recent C. difficile Patient reports recent C. diff infection at rehab after recent surgery. Was on isolation precautions for ~2 weeks while at rehab and was given oral abx while isolated. At rehab - C. diff Ag positive, toxin negative. Patient has diarrhea. Start treatment for C. difficile-Dificid. Intractable Nausea Hx esophageal ulcers (Oct 2024) Hx recent cholecystectomy (12/25/24) Hx colon cancer s/p right hemicolectomy and ileostomy reversal confirm home meds, restart as appropriate Had EGD back in Oct 2024 which noted esophageal ulcers, musocal sloughing in the lower third of the esophagus, gastritis Continue Protonix Diet as tolerated. Hyponatremia, mild, likely hypovolemic, resolved CKD 3 Improved with IV hydration Stable Chronic diastolic CHF (20-24% EF 10/2024) Pulmonary hypertension Hypertension Hyperlipidemia continue statin BP has been low to low-normal throughout hospitalization Chronic anemia hgb stable. Daily labs. IDDM2 Insulin sliding scale pt states he doesn't take long acting insulin when fasting is < 130 01/28 Diarrhea frequency has significantly reduced Patient just completed oral vancomycin for C. difficile. Patient started on Dificid. Infectious disease Dr. Avila is following and recommend holding meropenem for now. Patient has completed 7 days of IV antibiotics for emphysematous cystitis. Monitor. Increase activity as tolerated Continue PT Patient is being evaluated for SNF placement. 01/29 Diarrhea frequency significantly improved. Status post oral vancomycin for C. difficile as outpatient. Continue Dificid Patient started on bicarb for metabolic acidosis secondary to diarrhea. Infectious disease Dr. Avila is following. Patient completed 7 days of antibiotic for anastomotic cystitis Meropenem is on hold per Dr. Avila. Continue PT. VTE: Lovenox Code: Full Dispo: SNF for PT
[2025-01-30 05:57] LABS: Anion Gap 11.1 mEq/L (5.0-15.0); Potassium 4.1 mEq/L (3.5-5.1)
[2025-01-30] MEDS ORDERED: IPRATROPIUM BROM 0.5MG/2.5ML NEB PRN (06:56)
[2025-01-30] MEDS: ENOXAPARIN 30 MG/0.3 ML SQ SCH (08:58)
--- NOTE | 2025-01-30 13:25 | P.PN ---
Subjective Date of Service: 01/30/25 Chief Complaint: Syncope Patient reports no diarrhea today He also states he is eating more. No issues overnight. Physical Examination - Vital Signs Temperature: 97.3 F Blood Pressure: 97/69 Pulse: 96 Respirations: 18 Pulse Ox (%): 99 Assessment And Plan - Plan Physical examination General: Alert and oriented x3, NAD, cachectic. HEENT: anicteric sclera Heart: Heart sounds 1 and 2 normal, regular rhythm, normal rate, no pedal edema Lungs: Clear to auscultation bilaterally, adequate breath sounds bilaterally, no rhonchi or crackles. Abdomen: Soft, nondistended, nontender, normal bowel sounds. Extremities: No tenderness, no deformity Skin: Normal skin turgor, no rash. Neuro: No focal motor deficit. Normal speech. Psychiatry: Normal mood, no agitation. 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 difficile Intractable Nausea Hx esophageal ulcers (Oct 2024) Hx recent cholecystectomy (12/25/24) Hx colon cancer s/p right hemicolectomy and ileostomy reversal Hyponatremia, mild, likely hypovolemic, resolved CKD 3 Chronic diastolic CHF (20-24% EF 10/2024) Pulmonary hypertension Hypertension Hyperlipidemia Chronic anemia IDDM2 Severe protein calorie malnutrition Metabolic acidosis Emphysematous cystitis secondary to Klebsiella Pneumoniae ESBL Syncope Generalized weakness CT chest/abd 01/19: emphysematous cystitis, moderate stool burden throughout mildly distended colon Status post IV rocephin (01/20-01/23) Urine culture growing Klebsiella Pneumoniae ESBL Antibiotics switched to IV meropenem PICC line placed for prolonged antibiotic therapy. Infectious disease evaluated patient and recommended 2 weeks of IV meropenem Recent C. difficile Patient reports recent C. diff infection at rehab after recent surgery. Was on isolation precautions for ~2 weeks while at rehab and was given oral abx while isolated. At rehab - C. diff Ag positive, toxin negative. Patient has diarrhea. Start treatment for C. difficile-Dificid. Intractable Nausea Hx esophageal ulcers (Oct 2024) Hx recent cholecystectomy (12/25/24) Hx colon cancer s/p right hemicolectomy and ileostomy reversal confirm home meds, restart as appropriate Had EGD back in Oct 2024 which noted esophageal ulcers, musocal sloughing in the lower third of the esophagus, gastritis Continue Protonix Diet as tolerated. Hyponatremia, mild, likely hypovolemic, resolved CKD 3 Improved with IV hydration Stable Chronic diastolic CHF (20-24% EF 10/2024) Pulmonary hypertension Hypertension Hyperlipidemia continue statin BP has been low to low-normal throughout hospitalization Chronic anemia hgb stable. Daily labs. IDDM2 Insulin sliding scale pt states he doesn't take long acting insulin when fasting is < 130 01/28 Diarrhea frequency has significantly reduced Patient just completed oral vancomycin for C. difficile. Patient started on Dificid. Infectious disease Dr. Avila is following and recommend holding meropenem for now. Patient has completed 7 days of IV antibiotics for emphysematous cystitis. Monitor. Increase activity as tolerated Continue PT Patient is being evaluated for SNF placement. 01/29 Diarrhea frequency significantly improved. Status post oral vancomycin for C. difficile as outpatient. Continue Dificid Patient started on bicarb for metabolic acidosis secondary to diarrhea. Infectious disease Dr. Avila is following. Patient completed 7 days of antibiotic for anastomotic cystitis Meropenem is on hold per Dr. Avila. Continue PT. 01/30 Patient is clinically improving Diarrhea continues to improve Continue Dificid Continue oral bicarb for metabolic acidosis Meropenem has been on hold per Dr. Avila. Continue to monitor electrolytes and renal function. Social service assisting with arrangement for SNF placement. VTE: Lovenox Code: Full Dispo: SNF for PT
[2025-01-30] MEDS ORDERED: ALBUTEROL 2.5 MG/3 ML NEB SOL NEB PRN (14:06)
--- NOTE | 2025-01-30 15:59 | P.PN ---
Date of Service: 01/30/25 Subjective The patient lying in bed, denied N/V/D. no new concern.report doing well. Objective Temp Pulse Resp BP Pulse Ox 97.3 F 96 H 18 97/69 99 01/30/25 13:25 01/30/25 13:25 01/30/25 13:25 01/30/25 13:01/30/25 13:25 Laboratory Results 01/21/25 K. Pneumoniae ESBL 01/20/25 Blood culture negative no growth for 5 days WBC 6.4, hemoglobin 9.6 BUN 50. creatinine 0.83 Assessment/planning -The patient was treated with meropenem for urosepsis secondary to Klebsiella pneumoniae, ESBL. abx was dc due to worsening diarrhea and vomiting C diff negative on 01/27/25 Can start back on abx once diarrhea subsided monitor wbc and fever trend -Short bowel syndrome. Continue Questran and probiotics. -Anemia of chronic disease. We will follow the patient as needed. Pt was seen and Dr Avila is in agreement with plan above
[2025-01-31] MEDS: MAGNESIUM SULFATE 1 gm IVPB 1 GM/100 ML BAG IV ONE (09:49)
[2025-01-31 09:54] LABS: Anion Gap 11.1 mEq/L (5.0-15.0); Magnesium 1.9 mg/dL (1.6-2.4); Phosphorus 2.4 mg/dL (2.5-4.9); Potassium 4.1 mEq/L (3.5-5.1)
--- NOTE | 2025-01-31 13:37 | P.PN ---
Subjective Date of Service: 01/31/25 Chief Complaint: Syncope Patient reports 1 episode of loose stool, no diarrhea. He feels his appetite is improving Patient also reports he has been able to ambulate with assistance. He ambulated to 25 feet with a walker during PT yesterday. Nurse reports an episode of nonsustained V. tach earlier this morning. Physical Examination - Vital Signs Temperature: 97.3 F Blood Pressure: 108/76 Pulse: 93 Respirations: 16 Pulse Ox (%): 97 Assessment And Plan - Plan Physical examination General: Alert and oriented x3, NAD, cachectic. Heart: Heart sounds 1 and 2 normal, regular rhythm, normal rate, no pedal edema Lungs: Clear to auscultation bilaterally, adequate breath sounds bilaterally, no rhonchi or crackles. Abdomen: Soft, nondistended, nontender, normal bowel sounds. Extremities: No tenderness, no deformity Skin: Normal skin turgor, no rash. Neuro: No focal motor deficit. Normal speech. Psychiatry: Normal mood, no agitation. 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 difficile Intractable Nausea Hx esophageal ulcers (Oct 2024) Hx recent cholecystectomy (12/25/24) Hx colon cancer s/p right hemicolectomy and ileostomy reversal Hyponatremia, mild, likely hypovolemic, resolved CKD 3 Chronic systolic CHF (20-24% EF 10/2024) Pulmonary hypertension Hypertension Hyperlipidemia Chronic anemia IDDM2 Severe protein calorie malnutrition Metabolic acidosis Nonsustained V. 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 Infectious disease evaluated patient and recommended 2 weeks of IV meropenem Recent C. difficile Patient reports recent C. diff infection at rehab after recent surgery. Was on isolation precautions for ~2 weeks while at rehab and was given oral abx while isolated. At rehab - C. diff Ag positive, toxin negative. Patient has diarrhea. Start treatment for C. difficile-Dificid. Intractable Nausea Hx esophageal ulcers (Oct 2024) Hx recent cholecystectomy (12/25/24) Hx colon cancer s/p right hemicolectomy and ileostomy reversal confirm home meds, restart as appropriate Had EGD back in Oct 2024 which noted esophageal ulcers, musocal sloughing in the lower third of the esophagus, gastritis Continue Protonix Diet as tolerated. Hyponatremia, mild, likely hypovolemic, resolved CKD 3 Improved with IV hydration Stable Chronic diastolic CHF (20-24% EF 10/2024) Pulmonary hypertension Hypertension Hyperlipidemia continue statin BP has been low to low-normal throughout hospitalization Chronic anemia hgb stable. Daily labs. IDDM2 Insulin sliding scale pt states he doesn't take long acting insulin when fasting is < 130 01/28 Diarrhea frequency has significantly reduced Patient just completed oral vancomycin for C. difficile. Patient started on Dificid. Infectious disease Dr. Avila is following and recommend holding meropenem for now. Patient has completed 7 days of IV antibiotics for emphysematous cystitis. Monitor. Increase activity as tolerated Continue PT Patient is being evaluated for SNF placement. 01/29 Diarrhea frequency significantly improved. Status post oral vancomycin for C. difficile as outpatient. Continue Dificid Patient started on bicarb for metabolic acidosis secondary to diarrhea. Infectious disease Dr. Avila is following. Patient completed 7 days of antibiotic for anastomotic cystitis Meropenem is on hold per Dr. Avila. Continue PT. 01/30 Patient is clinically improving Diarrhea continues to improve Continue Dificid Continue oral bicarb for metabolic acidosis Meropenem has been on hold per Dr. Avila. Continue to monitor electrolytes and renal function. Social service assisting with arrangement for SNF placement. 01/31 Patient has no new complaint. Functional status is improving He is eating well Continue Dificid. Optimize magnesium and potassium levels Continue telemetry Awaiting insurance authorization for SNF placement. VTE: Lovenox Code: Full Dispo: SNF for PT .
[2025-02-01 04:49] LABS: Absolute Eosinophils 0.3 K/uL (0-0.5); Absolute Lymphocytes (CBC) 1.1 K/uL (0.7-4.9); Absolute Monocytes 0.8 K/uL (0.1-1.3); Basophils % 0.7 % (0-1.3); Eosinophils % 3.6 % (0-4.4); Hematocrit 26.5 % (39.6-49.0); Hemoglobin 8.9 g/dL (13.6-17.9); Lymphocytes % 15.4 % (15.3-44.8); MCH 31.4 pg (27.0-35.0); MCHC 33.7 g/dL (32.0-36.0); MCV 93.1 fL (80-100); Monocytes % 11.3 % (3.3-12.3); Nucleated Red Blood Cells % 0.1 % (0-0); Platelets 150 thou/uL (152-406); RBC Red Blood Cell Count 2.84 M/uL (4.33-5.43); Red Cell Distribution Width 17.3 % (12.1-15.2)
[2025-02-01 05:13] LABS: Anion Gap 11.8 mEq/L (5.0-15.0); Potassium 4.8 mEq/L (3.5-5.1)
[2025-02-01 07:15] LABS: Magnesium 2.2 mg/dL (1.6-2.4); Phosphorus 3.2 mg/dL (2.5-4.9)
--- NOTE | 2025-02-01 13:17 | P.PN ---
Subjective Date of Service: 02/01/25 Chief Complaint: Syncope Patient reports 3 loose stools overnight. Patient has new complaint. Physical Examination - Vital Signs Temperature: 97.6 F Blood Pressure: 99/70 Pulse: 87 Respirations: 18 Pulse Ox (%): 100 Assessment And Plan - Plan Physical examination General: Alert and oriented x3, NAD, cachectic. Heart: Heart sounds 1 and 2 normal, regular rhythm, normal rate, no pedal edema Lungs: Clear to auscultation bilaterally, adequate breath sounds bilaterally, no rhonchi or crackles. Abdomen: Soft, nondistended, nontender, normal bowel sounds. Extremities: No tenderness, no deformity Skin: Normal skin turgor, no rash. Neuro: No focal motor deficit. Normal speech. Psychiatry: Normal mood, no agitation. 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 difficile Intractable Nausea Hx esophageal ulcers (Oct 2024) Hx recent cholecystectomy (12/25/24) Hx colon cancer s/p right hemicolectomy and ileostomy reversal Hyponatremia, mild, likely hypovolemic, resolved CKD 3 Chronic systolic CHF (20-24% EF 10/2024) Pulmonary hypertension Hypertension Hyperlipidemia Chronic anemia IDDM2 Severe protein calorie malnutrition Metabolic acidosis Nonsustained V. 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 Infectious disease evaluated patient and recommended 2 weeks of IV meropenem Recent C. difficile Patient reports recent C. diff infection at rehab after recent surgery. Was on isolation precautions for ~2 weeks while at rehab and was given oral abx while isolated. At rehab - C. diff Ag positive, toxin negative. Patient has diarrhea. Start treatment for C. difficile-Dificid. Intractable Nausea Hx esophageal ulcers (Oct 2024) Hx recent cholecystectomy (12/25/24) Hx colon cancer s/p right hemicolectomy and ileostomy reversal confirm home meds, restart as appropriate Had EGD back in Oct 2024 which noted esophageal ulcers, musocal sloughing in the lower third of the esophagus, gastritis Continue Protonix Diet as tolerated. Hyponatremia, mild, likely hypovolemic, resolved CKD 3 Improved with IV hydration Stable Chronic diastolic CHF (20-24% EF 10/2024) Pulmonary hypertension Hypertension Hyperlipidemia continue statin BP has been low to low-normal throughout hospitalization Chronic anemia hgb stable. Daily labs. IDDM2 Insulin sliding scale pt states he doesn't take long acting insulin when fasting is < 130 01/28 Diarrhea frequency has significantly reduced Patient just completed oral vancomycin for C. difficile. Patient started on Dificid. Infectious disease Dr. Avila is following and recommend holding meropenem for now. Patient has completed 7 days of IV antibiotics for emphysematous cystitis. Monitor. Increase activity as tolerated Continue PT Patient is being evaluated for SNF placement. 01/29 Diarrhea frequency significantly improved. Status post oral vancomycin for C. difficile as outpatient. Continue Dificid Patient started on bicarb for metabolic acidosis secondary to diarrhea. Infectious disease Dr. Avila is following. Patient completed 7 days of antibiotic for anastomotic cystitis Meropenem is on hold per Dr. Avila. Continue PT. 01/30 Patient is clinically improving Diarrhea continues to improve Continue Dificid Continue oral bicarb for metabolic acidosis Meropenem has been on hold per Dr. Avila. Continue to monitor electrolytes and renal function. Social service assisting with arrangement for SNF placement. 01/31 Patient has no new complaint. Functional status is improving He is eating well Continue Dificid. Optimize magnesium and potassium levels Continue telemetry Awaiting insurance authorization for SNF placement. 02/01 Continue Dificid for C. difficile. Encourage oral intake and oral rehydration. Monitor and optimize electrolytes Continue telemetry Continue PT VTE: Lovenox Code: Full Dispo: SNF for PT .
[2025-02-02 07:15] LABS: Absolute Eosinophils 0.2 K/uL (0-0.5); Absolute Monocytes 0.6 K/uL (0.1-1.3); Absolute Neutrophil 4.8 K/uL (1.8-8.0); Basophils % 0.6 % (0-1.3); Eosinophils % 3.3 % (0-4.4); Hematocrit 27.8 % (39.6-49.0); Hemoglobin 9.3 g/dL (13.6-17.9); Lymphocytes % 15.4 % (15.3-44.8); MCH 30.9 pg (27.0-35.0); MCHC 33.3 g/dL (32.0-36.0); MPV 8.8 fL (7.6-11.3); Neutrophils % 71.7 % (41.7-73.7); Platelets 172 thou/uL (152-406); RBC Red Blood Cell Count 2.99 M/uL (4.33-5.43); Red Cell Distribution Width 17.3 % (12.1-15.2)
[2025-02-02 07:25] LABS: Anion Gap 13.3 mEq/L (5.0-15.0); Potassium 4.3 mEq/L (3.5-5.1)
[2025-02-02] MEDS: SODIUM BICARB 325 MG TAB PO SCH ×2 (08:53→13:01)
--- NOTE | 2025-02-02 11:01 | P.PN ---
Subjective Date of Service: 02/02/25 Chief Complaint: Syncope Patient improvement in the diarrhea. He states that his stool is more formed. He reports up to 3 bowel movements since last night He denies any abdominal pain No recorded fever. He states his appetite has improved and he is eating more. Physical Examination - Vital Signs Temperature: 97.5 F Blood Pressure: 104/73 Pulse: 87 Respirations: 18 Pulse Ox (%): 94 Assessment And Plan - Plan Physical examination General: Alert and oriented x3, NAD, cachectic. Heart: Heart sounds 1 and 2 normal, regular rhythm, normal rate, no pedal edema Lungs: Clear to auscultation bilaterally, adequate breath sounds bilaterally, no rhonchi or crackles. Abdomen: Soft, nondistended, nontender, normal bowel sounds. Extremities: No tenderness, no deformity Skin: Normal skin turgor, no rash. Neuro: No focal motor deficit. Normal speech. Psychiatry: Normal mood, no agitation. 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 difficile Intractable Nausea Hx esophageal ulcers (Oct 2024) Hx recent cholecystectomy (12/25/24) Hx colon cancer s/p right hemicolectomy and ileostomy reversal Hyponatremia, mild, likely hypovolemic, resolved CKD 3 Chronic systolic CHF (20-24% EF 10/2024) Pulmonary hypertension Hypertension Hyperlipidemia Chronic anemia IDDM2 Severe protein calorie malnutrition Metabolic acidosis Nonsustained V. 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 Infectious disease evaluated patient and recommended 2 weeks of IV meropenem Recent C. difficile Patient reports recent C. diff infection at rehab after recent surgery. Was on isolation precautions for ~2 weeks while at rehab and was given oral abx while isolated. At rehab - C. diff Ag positive, toxin negative. Patient has diarrhea. Start treatment for C. difficile-Dificid. Intractable Nausea Hx esophageal ulcers (Oct 2024) Hx recent cholecystectomy (12/25/24) Hx colon cancer s/p right hemicolectomy and ileostomy reversal confirm home meds, restart as appropriate Had EGD back in Oct 2024 which noted esophageal ulcers, musocal sloughing in the lower third of the esophagus, gastritis Continue Protonix Diet as tolerated. Hyponatremia, mild, likely hypovolemic, resolved CKD 3 Improved with IV hydration Stable Chronic diastolic CHF (20-24% EF 10/2024) Pulmonary hypertension Hypertension Hyperlipidemia continue statin BP has been low to low-normal throughout hospitalization Chronic anemia hgb stable. Daily labs. IDDM2 Insulin sliding scale pt states he doesn't take long acting insulin when fasting is < 130 01/28 Diarrhea frequency has significantly reduced Patient just completed oral vancomycin for C. difficile. Patient started on Dificid. Infectious disease Dr. Avila is following and recommend holding meropenem for now. Patient has completed 7 days of IV antibiotics for emphysematous cystitis. Monitor. Increase activity as tolerated Continue PT Patient is being evaluated for SNF placement. 01/29 Diarrhea frequency significantly improved. Status post oral vancomycin for C. difficile as outpatient. Continue Dificid Patient started on bicarb for metabolic acidosis secondary to diarrhea. Infectious disease Dr. Avila is following. Patient completed 7 days of antibiotic for anastomotic cystitis Meropenem is on hold per Dr. Avila. Continue PT. 01/30 Patient is clinically improving Diarrhea continues to improve Continue Dificid Continue oral bicarb for metabolic acidosis Meropenem has been on hold per Dr. Avila. Continue to monitor electrolytes and renal function. Social service assisting with arrangement for SNF placement. 01/31 Patient has no new complaint. Functional status is improving He is eating well Continue Dificid. Optimize magnesium and potassium levels Continue telemetry Awaiting insurance authorization for SNF placement. 02/01 Continue Dificid for C. difficile. Encourage oral intake and oral rehydration. Monitor and optimize electrolytes Continue telemetry Continue PT 02/02 Patient reports more formed stool Continue Dificid Increase oral bicarb replacement to 1300 twice daily Nephrology consult for metabolic acidosis Encourage oral intake Continue PT, increase activity as tolerated. Monitor and optimize electrolytes. VTE: Lovenox Code: Full Dispo: SNF for PT .
--- NOTE | 2025-02-02 11:19 | P.CNS ---
Date of Consult: 02/02/25 Reason for Consult: Acidosis Requesting Physician: davian schwab Chief Complaint: Syncope History of Present Illness: 54 yrs old Male with past medical history of chronic systolic heart failure with recent echo showing EF of 10% status post AICD placement, diabetes, hypertension, colon cancer brought to ER with syncopal episode. He apparently slid off his bed while attempting to stand up. Patient has a complex medical history with a recent cholecystectomy and had a prolonged postoperative course in [facility] with infection with a C. difficile. Patient complains of generalized weakness and fatigue. Patient was assessed in the ER and was admitted for further management of pneumonia and syncopal workup. 20:02 This 54 yrs old Male presents to ER via Unassigned with complaints of Fall sp4 Injury, Near Syncope. 22:48 54-year-old male presents with EMS after he slid off his bed while attempting to stand sp4 up. Patient has extensive past medical history of congestive heart failure, diabetes mellitus, hypertension, colon cancer, defibrillator pacemaker, recent cholecystectomy and difficult postoperative course with infection with C. difficile. Patient has incontinence of bowel and bladder. Patient presents with EMS for reported near syncopal episode and generalized weakness associated with fall.. Allergies morphine Allergy (Verified 01/20/25 01:36) Nausea/Vomiting Home medications list reviewed: Yes Home Medications: Aspirin Chewable [Aspirin Chewable*] 81 mg PO DAILY 01/22/25 Atorvastatin Calcium [Lipitor] 20 mg PO BEDTIME 01/22/25 Budesonide [Pulmicort] 1 puff IH BID 01/22/25 Buspirone HCl [Buspar] 5 mg PO BID 01/22/25 Calcium Carbonate/Vitamin D3 [Oscal 500 + Vit D 200 Iu Tab] 1 tab PO BID 5 Cholestyramine [Cholestyramine Light Packet] 4 gm PO TID 01/22/25 Escitalopram Oxalate [Lexapro] 10 mg PO DAILY 01/22/25 Ferrous Sulfate [Feosol] 325 mg PO BID 01/22/25 Folic Acid 1 mg PO DAILY 01/22/25 Lactobacillus Acidophilus 1 each PO BID 01/22/25 Lidocaine 4% Patch [Lidoderm 5% Patch] 1 patch TD DAILY 01/22/25 Losartan Potassium [Cozaar] 12.5 mg PO DAILY 01/22/25 Midodrine HCl [Proamatine] 5 mg PO Q6HP PRN 01/22/25 Ondansetron [Zofran] 4 mg PO Q8H PRN 01/22/25 Pantoprazole [Protonix Tab] 40 mg PO BID 01/22/25 Potassium Chloride 10 meq PO DAILY 01/22/25 Sodium Chloride Tab [NaCl Tabs] 1 gm PO BID 01/22/25 Thiamine HCl [Vitamin B-1] 100 mg PO DAILY 01/22/25 Timolol Maleate [Timoptic] 1 gtt OP BID 01/22/25 Torsemide [Demadex] 20 mg PO DAILY 01/22/25 carvediloL [Coreg] 6.25 mg PO BIDWM 01/22/25 - Past Medical/Surgical History Diabetic: Yes -: HTN -: Systolic Diastolic CHF LVEF 20-25% -: Moderate Pulmonary HTN -: DM II -: CKD I with Proteinuria (Dr. Leary/ Don) -: CAD/ [place] -: Colon Cancer Stage II -: cardiac stents placement in January -: Bowel Resection -: Ileostomy reversal - Family History Father Medical History: Hypertension, Diabetes - Social History Smoking Status: Former smoker Alcohol use: No CD- Drugs: No Caffeine use: Yes Place of Residence: Home Review of Systems 10-point ROS is otherwise unremarkable General: Weakness, Malaise Physical Examination Temp Pulse Resp BP Pulse Ox 97.5 F 87 18 104/73 94 02/02/25 11:01 02/02/25 11:01 02/02/25 11:01 02/02/25 11:01 02/02/25 11:01 General: In no apparent distress, Oriented x3, Cooperative HEENT: Atraumatic Neck: Supple Respiratory: Clear to auscultation bilaterally, Normal air movement Cardiovascular: No edema, Regular rate/rhythm Gastrointestinal: Soft and benign, Non-distended Musculoskeletal: No clubbing, No contractures Integumentary: No rashes, No cyanosis Neurological: Normal speech Blood work reviewed in the chart. Imagings Data: EXAM: Chest Single View HISTORY: 54 years Male PICC line placement COMPARISON: 01/19/2025 FINDINGS: LUNGS/PLEURA: Right pleural effusion with underlying atelectasis and/or airspace disease. CARDIAC/MEDIASTINUM: Moderate cardiomegaly. UPPER ABDOMEN: No significant abnormality. BONES: No acute abnormality. LINES/TUBES/OTHER: Right subclavian approach PICC with tip at the distal SVC. Pacemaker/AICD. IMPRESSION: PICC tip in satisfactory position at the distal SVC. Small right pleural effusion with underlying atelectasis and/or airspace disease is similar. EXAM: CT CHEST, ABDOMEN AND PELVIS WITHOUT CONTRAST CLINICAL INDICATION: ABDOMINAL DISTENTION TECHNIQUE: CT chest, abdomen and pelvis was performed without contrast, as per department protocol. Axial, sagittal and coronal reconstructions were obtained. One or more of the following dose reduction techniques were used: Automated exposure control, adjustment of the mA and/or kV according to patient size, and/or iterative reconstruction. Unless otherwise specified, incidental findings do not require dedicated imaging follow-up. Examination is limited by the lack of intravenous contrast material. COMPARISON: 10/06/2024 04/08/2023 FINDINGS: LUNGS: Patchy airspace opacity posterior right lung base likely representing pneumonia. Left lung is clear. There is an 11 mm nodule right middle lobe. PLEURA: Small bilateral pleural effusions. MEDIASTINUM AND LYMPH NODES: No mediastinal mass or fluid collection. Normal size mediastinal, hilar, and axillary lymph nodes. Coronary calcifications. Multilead pacer device. OSSEOUS STRUCTURES AND CHEST WALL: Intact. LIVER: Normal in size and contour. No focal lesion or biliary dilatation. Cholecystectomy clips. PANCREAS: No mass, ductal dilation, or jena-pancreatic fluid. SPLEEN: Normal size. No focal lesion. ADRENALS: Normal; no mass. KIDNEYS: Normal size and contour. No hydronephrosis. URINARY BLADDER: There is present in the urinary bladder wall. GASTROINTESTINAL TRACT: No bowel obstruction, free air, significant free fluid or abscess. Moderate stool is present in the colon. Evidence of prior partial colectomy. APPENDIX: Appendix not visualized, but no inflammatory changes in region of appendix. LYMPH NODES: No lymphadenopathy. MUSCULOSKELETAL: No acute or suspicious osseous abnormality. OTHER: IMPRESSION: Emphysematous cystitis. Patchy opacity in the posterior right lung base likely pneumonia. 11 mm nodule in the right middle lobe, unchanged since 04/08/2023. Recommend follow-up CT chest in one year for documentation of stability. Moderate stool retention throughout a mildly distended colon. LEFT VENTRICULAR WALL MOTION: SEVERE GLOBAL HYPOKINESIS DOPPLER/COLOR FLOW: DIASTOLIC DYSFUNCTION COMMENTS: 1. SEVERELY REDUCED LEFT VENTRICULAR SYSTOLIC FUNCTION, EJECTION FRACTION 10%, SEVERE GLOBAL HYPOKINESIS 2. CAN NOT RULE OUT LEFT VENTRICULAR THROMBUS 3. DIASTOLIC DYSFUNCTION 4. ELEVATED FILLING PRESSURE (RIGHT ATRIUM GREATER THAN 20 mmHg) 5. MODERATE PULMONARY HYPERTENSION (RIGHT VENTRICULAR SYSTOLIC PRESSURE 50-55 mmHg) Conclusions/Impression: CKD I with Proteinuria -No NSAIDs NAG Metabolic Acidosis likely due to GI loss Hx colon cancer s/p right hemicolectomy and ileostomy reversal -Increase oral bicarb QID -Continue Questran Hypophosphatemia -Replete as ordered HTN with CKD/ CHF -Continue Coreg Systolic Diastolic CHF, chronic Pulmonary HTN -Daily weight DM II with CKD -RISS Hypoalbuminemia Protein calorie malnutrition -Continue protein supplementation Anemia in chronic illness -Monitor H&H BPH with LUTS -Continue tamsulosin Emphysematous cystitis with hematuria Klebsiella Pneumoniae ESBL -Continue Abx Hospitalist and ER notes reviewed Thank you kindly for the consultation
--- NOTE | 2025-02-02 15:35 | P.PN ---
Date of Service: 02/02/25 Subjective The patient lying in bed, denied N/V/D. no new concern.report doing well. Objective Temp Pulse Resp BP Pulse Ox 97.1 F 82 18 102/69 98 02/02/25 12:00 02/02/25 12:00 02/02/25 12:00 02/02/25 12:00 02/02/25 12:00 Laboratory Results 01/21/25 K. Pneumoniae ESBL 01/20/25 Blood culture negative no growth for 5 days WBC 6.7, hemoglobin 8.9 BUN 54. creatinine 0.87 Assessment/planning -The patient was treated with meropenem for urosepsis secondary to Klebsiella pneumoniae, ESBL. abx was dc due to worsening diarrhea and vomiting C diff negative on 01/27/25 Can start back on abx once diarrhea subsided monitor wbc and fever trend -Short bowel syndrome. Continue Questran and probiotics. -Anemia of chronic disease. We will follow the patient as needed. Pt was seen and Dr Avila is in agreement with plan above
[2025-02-03 05:04] LABS: Absolute Eosinophils 0.3 K/uL (0-0.5); Absolute Lymphocytes (CBC) 0.8 K/uL (0.7-4.9); Absolute Monocytes 0.5 K/uL (0.1-1.3); Absolute Neutrophil 4.4 K/uL (1.8-8.0); Basophils % 0.8 % (0-1.3); Hematocrit 27.5 % (39.6-49.0); Hemoglobin 9.3 g/dL (13.6-17.9); Lymphocytes % 13.5 % (15.3-44.8); MCH 31.4 pg (27.0-35.0); MCHC 33.8 g/dL (32.0-36.0); MCV 92.9 fL (80-100); MPV 8.9 fL (7.6-11.3); Neutrophils % 72.7 % (41.7-73.7); Nucleated Red Blood Cells % 0.1 % (0-0); Platelets 185 thou/uL (152-406); RBC Red Blood Cell Count 2.96 M/uL (4.33-5.43); Red Cell Distribution Width 17.1 % (12.1-15.2)
[2025-02-03 05:22] LABS: Anion Gap 11.9 mEq/L (5.0-15.0); Potassium 3.9 mEq/L (3.5-5.1)
[2025-02-03] MEDS: POTASSIUM 25 MEQ EFFERV TAB PO ONE (09:06)
--- NOTE | 2025-02-03 09:40 | P.PN ---
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 difficile Metabolic acidosis Intractable Nausea Hx esophageal ulcers (Oct 2024) Hx recent cholecystectomy (12/25/24) Hx colon cancer s/p right hemicolectomy and ileostomy reversal Hyponatremia, mild, likely hypovolemic, resolved CKD 3 Chronic diastolic CHF (20-24% EF 10/2024) Pulmonary hypertension Hypertension Hyperlipidemia BPH with LUTS Chronic anemia IDDM2 Emphysematous cystitis secondary to Klebsiella Pneumoniae ESBL Syncope Generalized weakness on admission, presents with worsening weakness/fatigue after syncopal episode at home. Reportedly slid off his bed while trying to stand up. CT head negative for any acute findings. CT chest/abd 01/19: emphysematous cystitis, moderate stool burden throughout mildly distended colon Blood cultures: No growth 01/20 - IV rocephin (01/20-01/23) Probiotic added. 01/22 - Urine cx prelim 2+ GNR, between 10-100k cfu/ml ID consulted, will check c.diff, if toxin negative and stool not watery, can come off isolation PT consulted 01/23 - Urine culture growing Klebsiella Pneumoniae ESBL switch Rocephin to IV Merrem given cx results. 01/24 - PICC line placed overnight for IV antibiotics 01/26 - ID recommending 2 weeks total abx coverage 01/28 - Abx dc'd given worsening n/v/d. s/p IV merrem (01/23-01/27) 02/02 - restart abx once diarrhea improved per ID 02/03 - No events overnight. Pending SNF placement Diarrhea Recent C. difficile Patient reports recent C. diff infection at rehab after recent surgery. Was on isolation precautions for ~2 weeks while at rehab and was given oral abx while isolated. At rehab - C. diff Ag positive, toxin negative. s/p oral Vanc at rehab (12/31- 01/15) 4/1 - C. diff negative. Dificid added - continue for 10 days 01/28 - ID recommending holding abx given worsening n/v/d. 01/30 - diarrhea improving 02/02 - Stool more formed per patient. Metabolic acidosis metabolic acidosis likely secondary to n/v/d 01/29 - oral bicarb added 02/02 - bicarb increased to 1300 mg QID Intractable Nausea Hx esophageal ulcers (Oct 2024) Hx recent cholecystectomy (12/25/24) Hx colon cancer s/p right hemicolectomy and ileostomy reversal Had EGD back in Oct 2024 which noted esophageal ulcers, musocal sloughing in the lower third of the esophagus, gastritis 01/25 - reports some nausea that started yesterday evening restart home pantoprazole 40 mg BID 01/26 - Nausea improved. Hyponatremia, mild, likely hypovolemic, resolved CKD 3 Improved with IV hydration renal function stable. Chronic diastolic CHF (20-24% EF 10/2024) Pulmonary hypertension Hypertension Hyperlipidemia BPH with LUTS continue flomax, statin BP has been low to low-normal throughout hospitalization Chronic anemia hgb stable. Daily labs. IDDM2 sarah newman switched AC lispro to sliding scale ACHS pt states he doesn't take long acting insulin when fasting is < 130 VTE: Lovenox Code: Full Dispo: SNF - pending approval and pending improvement of acidosis / diarrhea Time Spent Managing Pts Care (In Minutes): 55
--- NOTE | 2025-02-03 13:48 | PN ---
Subjective: Patient lying in bed. No new acute event. Chart reviewed. Objective: Vital Signs: Reviewed. Lungs: Basal crackles. Heart: S1, S2. Regular. Abdomen: Soft, nontender. Bowel sounds present. Extremities: No edema. Muscle wasting noted. Laboratory Data: Reviewed. WBC 6.1, hemoglobin 9.3, platelets 185. Assessment And Plan: 1. Diarrhea, improves. The patient has short bowel syndrome and C diff. 2. Urinary tract infection secondary to Klebsiella pneumoniae, ESBL. Treatment is completed. Contin ue supportive care and probiotics and Questran. We will follow the patient as needed. 3. Anemia of chronic disease. We will follow the patient as needed. NF/MODL Voice ID: [id number] Report ID: [id number]
--- NOTE | 2025-02-03 20:57 | P.PN ---
Date of Service: 02/03/25 Vital Signs Temp Pulse Resp BP Pulse Ox 97.4 F 91 H 16 104/71 99 02/03/25 16:00 02/03/25 18:16 02/03/25 16:00 02/03/25 18:16 02/03/25 16:00 Medications Acetaminophen (Acetaminophen 325 Mg Tablet) 650 mg PO Q4HP PRN PRN Reason: Pain scale 2-4 (Mild) Albuterol Sulfate (Albuterol 2.5 Mg/3 Ml Neb Daisy) 2.5 mg NEB Q6HP PRN PRN Reason: SHORTNESS OF BREATH Aspirin (Aspirin Ec 81 Mg Tab) 81 mg PO DAILY [facility] Last Admin: 02/03/25 09:05 Dose: 81 mg Atorvastatin Calcium (Atorvastatin 20 Mg Tab) 20 mg PO BEDTIME [facility] Last Admin: 02/03/25 20:46 Dose: 20 mg Buspirone HCl (Buspirone Hcl 5 Mg Tablet) 5 mg PO BID [facility] Last Admin: 02/03/25 20:46 Dose: 5 mg Carvedilol (Carvedilol 6.25 Mg Tab) 6.25 mg PO BIDWM [facility] Last Admin: 02/03/25 18:16 Dose: 6.25 mg Cholestyramine Resin (Cholestyramine/Asp 4 Gm/Pkt) 4 gm PO TID [facility] Last Admin: 02/03/25 20:46 Dose: 4 gm Enoxaparin Sodium (Enoxaparin 30 Mg/0.3 Ml) 30 mg SQ DAILY [facility] Last Admin: 02/03/25 09:05 Dose: 30 mg Enteral Nutritional Formula (Glucerna Shake 237 Ml Can) 237 ml PO TID [facility] Last Admin: 02/03/25 20:47 Dose: Not Given Escitalopram Oxalate (Escitalopram Oxalate 10 Mg Tablet) 10 mg PO DAILY [facility] Last Admin: 02/03/25 09:06 Dose: 10 mg Glucagon (Glucagon 1 Mg/Vial) 1 mg IM 1X PRN PRN Reason: HYPOGLYCEMIA Dextrose (Dextrose 10% Water Iv Soln.) 125 mls @ 0 mls/hr IV PRN PRN; Protocol PRN Reason: HYPOGLYCEMIA Insulin Human Regular (Insulin Regular (Human) 100 Unit/Ml) 0 unit SQ ACHS [facility]; Protocol Last Admin: 02/03/25 20:51 Dose: Not Given Ipratropium [place] (Ipratropium Brom 0.5mg/2.5ml) 0.5 mg NEB Q6HP PRN PRN Reason: SHORTNESS OF BREATH Lactobacillus Acidoph/Bulgaricus (Lactobacillus/Acidophilus Tab) 1 tab PO BID [facility] Last Admin: 02/03/25 20:46 Dose: 1 tab Ondansetron HCl (Ondansetron 4 Mg/2 Ml Vial) 4 mg IV Q6HP PRN PRN Reason: NAUSEA / VOMITING Last Admin: 01/27/25 08:35 Dose: 4 mg Sodium Bicarbonate (Sodium Bicarb 325 Mg Tab) 1,300 mg PO QID [facility] Last Admin: 02/03/25 18:17 Dose: 1,300 mg Tamsulosin HCl (Tamsulosin 0.4 Mg Sr Cap) 0.4 mg PO DAILY [facility] Last Admin: 02/03/25 09:06 Dose: 0.4 mg Microbiology Results 01/19/25 21:25 Blood - Blood Aerobic Blood Culture - Final No growth in 5 days. 01/19/25 21:25 Blood - Blood Anaerobic Blood Culture - Final No growth in 5 days. Assessment/ Plan: Nephrology No dyspnea No chest pain No acute events overnight Vitals, medications, blood work and imaging reviewed in the chart General: In no apparent distress, Oriented x3, Cooperative HEENT: Atraumatic Neck: Supple Respiratory: Clear to auscultation bilaterally, Normal air movement Cardiovascular: No edema, Regular rate/rhythm Gastrointestinal: Soft and benign, Non-distended Musculoskeletal: No clubbing, No contractures Integumentary: No rashes, No cyanosis Neurological: Normal speech Blood work reviewed in the chart. Imagings Data: EXAM: Chest Single View HISTORY: 54 years Male PICC line placement COMPARISON: 01/19/2025 FINDINGS: LUNGS/PLEURA: Right pleural effusion with underlying atelectasis and/or airspace disease. CARDIAC/MEDIASTINUM: Moderate cardiomegaly. UPPER ABDOMEN: No significant abnormality. BONES: No acute abnormality. LINES/TUBES/OTHER: Right subclavian approach PICC with tip at the distal SVC. Pacemaker/AICD. IMPRESSION: PICC tip in satisfactory position at the distal SVC. Small right pleural effusion with underlying atelectasis and/or airspace disease is similar. EXAM: CT CHEST, ABDOMEN AND PELVIS WITHOUT CONTRAST CLINICAL INDICATION: ABDOMINAL DISTENTION TECHNIQUE: CT chest, abdomen and pelvis was performed without contrast, as per department protocol. Axial, sagittal and coronal reconstructions were obtained. One or more of the following dose reduction techniques were used: Automated exposure control, adjustment of the mA and/or kV according to patient size, and/or iterative reconstruction. Unless otherwise specified, incidental findings do not require dedicated imaging follow-up. Examination is limited by the lack of intravenous contrast material. COMPARISON: 10/06/2024 04/08/2023 FINDINGS: LUNGS: Patchy airspace opacity posterior right lung base likely representing pneumonia. Left lung is clear. There is an 11 mm nodule right middle lobe. PLEURA: Small bilateral pleural effusions. MEDIASTINUM AND LYMPH NODES: No mediastinal mass or fluid collection. Normal size mediastinal, hilar, and axillary lymph nodes. Coronary calcifications. Multilead pacer device. OSSEOUS STRUCTURES AND CHEST WALL: Intact. LIVER: Normal in size and contour. No focal lesion or biliary dilatation. Cholecystectomy clips. PANCREAS: No mass, ductal dilation, or jena-pancreatic fluid. SPLEEN: Normal size. No focal lesion. ADRENALS: Normal; no mass. KIDNEYS: Normal size and contour. No hydronephrosis. URINARY BLADDER: There is present in the urinary bladder wall. GASTROINTESTINAL TRACT: No bowel obstruction, free air, significant free fluid or abscess. Moderate stool is present in the colon. Evidence of prior partial colectomy. APPENDIX: Appendix not visualized, but no inflammatory changes in region of appendix. LYMPH NODES: No lymphadenopathy. MUSCULOSKELETAL: No acute or suspicious osseous abnormality. OTHER: IMPRESSION: Emphysematous cystitis. Patchy opacity in the posterior right lung base likely pneumonia. 11 mm nodule in the right middle lobe, unchanged since 04/08/2023. Recommend follow-up CT chest in one year for documentation of stability. Moderate stool retention throughout a mildly distended colon. LEFT VENTRICULAR WALL MOTION: SEVERE GLOBAL HYPOKINESIS DOPPLER/COLOR FLOW: DIASTOLIC DYSFUNCTION COMMENTS: 1. SEVERELY REDUCED LEFT VENTRICULAR SYSTOLIC FUNCTION, EJECTION FRACTION 10%, SEVERE GLOBAL HYPOKINESIS 2. CAN NOT RULE OUT LEFT VENTRICULAR THROMBUS 3. DIASTOLIC DYSFUNCTION 4. ELEVATED FILLING PRESSURE (RIGHT ATRIUM GREATER THAN 20 mmHg) 5. MODERATE PULMONARY HYPERTENSION (RIGHT VENTRICULAR SYSTOLIC PRESSURE 50-55 mmHg) Conclusions/Impression: CKD I with Proteinuria -No NSAIDs NAG Metabolic Acidosis likely due to GI loss Hx colon cancer s/p right hemicolectomy and ileostomy reversal -Continue oral bicarb QID -Continue Questran Hypophosphatemia -Replete prn HTN with CKD/ CHF -Continue Coreg Systolic Diastolic CHF, chronic Pulmonary HTN -Daily weight DM II with CKD -RISS Hypoalbuminemia Protein calorie malnutrition -Continue protein supplementation Anemia in chronic illness -Monitor H&H BPH with LUTS -Continue tamsulosin Emphysematous cystitis with hematuria Klebsiella Pneumoniae ESBL -Continue Abx Hospitalist note reviewed
[2025-02-04 06:27] LABS: Hematocrit 27.1 % (39.6-49.0); Hemoglobin 9.1 g/dL (13.6-17.9); MCH 31.1 pg (27.0-35.0); MCHC 33.6 g/dL (32.0-36.0); MCV 92.5 fL (80-100); MPV 9.1 fL (7.6-11.3); Platelets 176 thou/uL (152-406); RBC Red Blood Cell Count 2.93 M/uL (4.33-5.43)
[2025-02-04 10:38] LABS: ALT/SGPT 18 U/L (16-61); Albumin 2.2 g/dL (3.4-5.0); Albumin/Globulin Ratio 0.5 (1.1-1.8); Alkaline Phosphatase 297 U/L (45-117); Anion Gap 13.1 mEq/L (5.0-15.0); BUN Blood Urea Nitrogen 49 mg/dL (7-18); Bicarbonate 17 mEq/L (21-32); Bilirubin Total 0.5 mg/dL (0.2-1.0); Globulin 4.1 g/dL (2.3-3.5); Glomerular Filtration Rate 106 ml/min (=/>90); Glucose Level 128 mg/dL (74-106); Potassium 4.1 mEq/L (3.5-5.1); Protein, Total 6.3 g/dL (6.4-8.2); Sodium Level 139 mEq/L (136-145)
[2025-02-04 10:40] LABS: AST/SGOT < 10 U/L (15-37)
--- NOTE | 2025-02-04 11:15 | P.PN ---
Date of Service: 02/04/25 Subjective: no events overnight diarrhea improving - less frequent, more formed no new / worsening issues Physical Exam: GEN: NAD CV: regular rate/rhythm, no edema Pulm: Nonlabored respirations on room air, clear bilaterally ABD: soft, nontender, nondistended Neuro: Normal speech, normal affect Problem List: Emphysematous cystitis secondary to Klebsiella Pneumoniae ESBL Syncope Generalized weakness Diarrhea Recent C. difficile Metabolic acidosis Intractable Nausea Hx esophageal ulcers (Oct 2024) Hx recent cholecystectomy (12/25/24) Hx colon cancer s/p right hemicolectomy and ileostomy reversal Hyponatremia, mild, likely hypovolemic, resolved CKD 3 Chronic diastolic CHF (20-24% EF 10/2024) Pulmonary hypertension Hypertension Hyperlipidemia BPH with LUTS Chronic anemia IDDM2 Emphysematous cystitis secondary to Klebsiella Pneumoniae ESBL Syncope Generalized weakness on admission, presents with worsening weakness/fatigue after syncopal episode at home. Reportedly slid off his bed while trying to stand up. CT head negative for any acute findings. CT chest/abd 01/19: emphysematous cystitis, moderate stool burden throughout mildly distended colon Blood cultures: No growth 01/20 - IV rocephin (01/20-01/23) Probiotic added. 01/22 - Urine cx prelim 2+ GNR, between 10-100k cfu/ml ID consulted, will check c.diff, if toxin negative and stool not watery, can come off isolation PT consulted 01/23 - Urine culture growing Klebsiella Pneumoniae ESBL switch Rocephin to IV Merrem given cx results. 01/24 - PICC line placed overnight for IV antibiotics 01/26 - ID recommending 2 weeks total abx coverage 01/28 - Abx dc'd given worsening n/v/d. s/p IV merrem x 5 days (01/23-01/27) 02/02 - restart abx once diarrhea improved per ID 02/03 - No events overnight. Pending SNF placement 02/04 - Approved for SNF, anticipate DC tomorrow if diarrhea and acidosis continues to improve/remain stable. remains afebrile, no dysuria. no need for further abx per ID Diarrhea Recent C. difficile Patient reports recent C. diff infection at rehab after recent surgery. Was on isolation precautions for ~2 weeks while at rehab and was given oral abx while isolated. At rehab - C. diff Ag positive, toxin negative. s/p oral Vanc at rehab (12/31- 01/15) 01/27 - C. diff negative. Dificid added - continue for 10 days 01/28 - ID recommending holding abx given worsening n/v/d. 01/30 - diarrhea improving 02/02 - Stool more formed per patient. 02/04 - continues to improve Metabolic acidosis metabolic acidosis likely secondary to n/v/d 01/29 - oral bicarb added 02/02 - bicarb increased to 1300 mg QID 02/04 - stable/improving Intractable Nausea Hx esophageal ulcers (Oct 2024) Hx recent cholecystectomy (12/25/24) Hx colon cancer s/p right hemicolectomy and ileostomy reversal Had EGD back in Oct 2024 which noted esophageal ulcers, musocal sloughing in the lower third of the esophagus, gastritis 01/25 - reports some nausea that started yesterday evening restart home pantoprazole 40 mg BID 01/26 - Nausea improved. Hyponatremia, mild, likely hypovolemic, resolved CKD 3 Improved with IV hydration renal function stable. Chronic diastolic CHF (20-24% EF 10/2024) Pulmonary hypertension Hypertension Hyperlipidemia BPH with LUTS continue flomax, statin BP has been low to low-normal throughout hospitalization Chronic anemia hgb stable. Daily labs. IDDM2 dc semglee switched AC lispro to sliding scale ACHS pt states he doesn't take long acting insulin when fasting is < 130 VTE: Lovenox Code: Full Dispo: Approved for SNF, anticipate DC tomorrow if diarrhea and acidosis continues to improve/remain stable. Time Spent Managing Pts Care (In Minutes): 55
--- NOTE | 2025-02-04 15:07 | P.PN ---
Date of Service: 02/04/25 Subjective The patient lying in bed, denied N/V/D. no new concern.report doing well. Objective Temp Pulse Resp BP Pulse Ox 97.5 F 77 14 94/65 95 02/04/25 12:00 02/04/25 12:00 02/04/25 12:00 02/04/25 12:00 02/04/25 12:00 Laboratory Results 01/21/25 K. Pneumoniae ESBL 01/20/25 Blood culture negative no growth for 5 days WBC 6, hemoglobin 9.1 BUN 49. creatinine 0.74 Assessment/planning -The patient was treated with meropenem for urosepsis secondary to Klebsiella pneumoniae, ESBL. abx was dc due to worsening diarrhea and vomiting. Continue supportive care,probiotics and Questran. Off abx at this time. WBC normal C diff negative on 01/27/25 monitor wbc and fever trend -Short bowel syndrome. Continue Questran and probiotics. -Anemia of chronic disease. We will follow the patient as needed. Pt was seen and Dr Avila is in agreement with plan above
--- NOTE | 2025-02-04 16:23 | PN ---
Subjective: Patient lying in bed. No new acute event. Chart reviewed. Objective: Vital Signs: Reviewed. Temperature 97, pulse 77, respirations 14, blood pressure 94/65. Lungs: Basal crackles. Heart: S1, S2. Regular. Abdomen: Soft, nontender. Bowel sounds present. Extremities: No edema or muscle wasting noted. Laboratory Data: Shows WBC 6.6, hemoglobin 9.1, platelets 196, BUN of 49, creatinine 0.7, albumin 2. 2. The patient is on Questran and probiotic. Diarrhea has stabilized. Assessment And Plan: 1. Short bowel syndrome, C diff history. 2. Diarrhea, improved. 3. Urinary tract infection with Klebsiella pneumoniae, ESBL. Treatment is completed. 4. Moderate protein-calorie malnourishment. 5. Anemia of chronic disease. Monitor signs of infection with WBC and fever trends. NF/MODL Voice ID: [id number] Report ID: [id number]
[2025-02-04 21:00] VITALS: O2SAT 95
--- NOTE | 2025-02-04 21:14 | P.PN ---
Date of Service: 02/04/25 Vital Signs Temp Pulse Resp BP Pulse Ox 98.1 F 77 16 107/68 96 02/04/25 16:00 02/04/25 16:13 02/04/25 16:00 02/04/25 16:13 02/04/25 16:00 Medications Acetaminophen (Acetaminophen 325 Mg Tablet) 650 mg PO Q4HP PRN PRN Reason: Pain scale 2-4 (Mild) Albuterol Sulfate (Albuterol 2.5 Mg/3 Ml Neb Daisy) 2.5 mg NEB Q6HP PRN PRN Reason: SHORTNESS OF BREATH Aspirin (Aspirin Ec 81 Mg Tab) 81 mg PO DAILY [facility] Last Admin: 02/04/25 08:45 Dose: 81 mg Atorvastatin Calcium (Atorvastatin 20 Mg Tab) 20 mg PO BEDTIME [facility] Last Admin: 02/04/25 20:42 Dose: 20 mg Buspirone HCl (Buspirone Hcl 5 Mg Tablet) 5 mg PO BID [facility] Last Admin: 02/04/25 20:42 Dose: 5 mg Carvedilol (Carvedilol 6.25 Mg Tab) 6.25 mg PO BIDWM [facility] Last Admin: 02/04/25 16:13 Dose: 6.25 mg Cholestyramine Resin (Cholestyramine/Asp 4 Gm/Pkt) 4 gm PO TID [facility] Last Admin: 02/04/25 20:42 Dose: 4 gm Enoxaparin Sodium (Enoxaparin 30 Mg/0.3 Ml) 30 mg SQ DAILY [facility] Last Admin: 02/04/25 08:45 Dose: 30 mg Enteral Nutritional Formula (Glucerna Shake 237 Ml Can) 237 ml PO TID [facility] Last Admin: 02/04/25 20:43 Dose: Not Given Escitalopram Oxalate (Escitalopram Oxalate 10 Mg Tablet) 10 mg PO DAILY [facility] Last Admin: 02/04/25 08:45 Dose: 10 mg Glucagon (Glucagon 1 Mg/Vial) 1 mg IM 1X PRN PRN Reason: HYPOGLYCEMIA Dextrose (Dextrose 10% Water Iv Soln.) 125 mls @ 0 mls/hr IV PRN PRN; Protocol PRN Reason: HYPOGLYCEMIA Insulin Human Regular (Insulin Regular (Human) 100 Unit/Ml) 0 unit SQ ACHS [facility]; Protocol Last Admin: 02/04/25 20:43 Dose: Not Given Ipratropium [place] (Ipratropium Brom 0.5mg/2.5ml) 0.5 mg NEB Q6HP PRN PRN Reason: SHORTNESS OF BREATH Lactobacillus Acidoph/Bulgaricus (Lactobacillus/Acidophilus Tab) 1 tab PO BID [facility] Last Admin: 02/04/25 20:42 Dose: 1 tab Ondansetron HCl (Ondansetron 4 Mg/2 Ml Vial) 4 mg IV Q6HP PRN PRN Reason: NAUSEA / VOMITING Last Admin: 01/27/25 08:35 Dose: 4 mg Sodium Bicarbonate (Sodium Bicarb 325 Mg Tab) 1,300 mg PO QID [facility] Last Admin: 02/04/25 20:42 Dose: 1,300 mg Tamsulosin HCl (Tamsulosin 0.4 Mg Sr Cap) 0.4 mg PO DAILY [facility] Last Admin: 02/04/25 08:45 Dose: 0.4 mg Microbiology Results 01/19/25 21:25 Blood - Blood Aerobic Blood Culture - Final No growth in 5 days. 01/19/25 21:25 Blood - Blood Anaerobic Blood Culture - Final No growth in 5 days. Assessment/ Plan: Nephrology No dyspnea No chest pain +PO No acute events overnight Vitals, medications, blood work and imaging reviewed in the chart General: In no apparent distress, Oriented x3, Cooperative HEENT: Atraumatic Neck: Supple Respiratory: Clear to auscultation bilaterally, Normal air movement Cardiovascular: No edema, Regular rate/rhythm Gastrointestinal: Soft and benign, Non-distended Musculoskeletal: No clubbing, No contractures Integumentary: No rashes, No cyanosis Neurological: Normal speech Blood work reviewed in the chart. Imagings Data: EXAM: Chest Single View HISTORY: 54 years Male PICC line placement COMPARISON: 01/19/2025 FINDINGS: LUNGS/PLEURA: Right pleural effusion with underlying atelectasis and/or airspace disease. CARDIAC/MEDIASTINUM: Moderate cardiomegaly. UPPER ABDOMEN: No significant abnormality. BONES: No acute abnormality. LINES/TUBES/OTHER: Right subclavian approach PICC with tip at the distal SVC. Pacemaker/AICD. IMPRESSION: PICC tip in satisfactory position at the distal SVC. Small right pleural effusion with underlying atelectasis and/or airspace disease is similar. EXAM: CT CHEST, ABDOMEN AND PELVIS WITHOUT CONTRAST CLINICAL INDICATION: ABDOMINAL DISTENTION TECHNIQUE: CT chest, abdomen and pelvis was performed without contrast, as per department protocol. Axial, sagittal and coronal reconstructions were obtained. One or more of the following dose reduction techniques were used: Automated exposure control, adjustment of the mA and/or kV according to patient size, and/or iterative reconstruction. Unless otherwise specified, incidental findings do not require dedicated imaging follow-up. Examination is limited by the lack of intravenous contrast material. COMPARISON: 10/06/2024 04/08/2023 FINDINGS: LUNGS: Patchy airspace opacity posterior right lung base likely representing pneumonia. Left lung is clear. There is an 11 mm nodule right middle lobe. PLEURA: Small bilateral pleural effusions. MEDIASTINUM AND LYMPH NODES: No mediastinal mass or fluid collection. Normal size mediastinal, hilar, and axillary lymph nodes. Coronary calcifications. Multilead pacer device. OSSEOUS STRUCTURES AND CHEST WALL: Intact. LIVER: Normal in size and contour. No focal lesion or biliary dilatation. Cholecystectomy clips. PANCREAS: No mass, ductal dilation, or jena-pancreatic fluid. SPLEEN: Normal size. No focal lesion. ADRENALS: Normal; no mass. KIDNEYS: Normal size and contour. No hydronephrosis. URINARY BLADDER: There is present in the urinary bladder wall. GASTROINTESTINAL TRACT: No bowel obstruction, free air, significant free fluid or abscess. Moderate stool is present in the colon. Evidence of prior partial colectomy. APPENDIX: Appendix not visualized, but no inflammatory changes in region of appendix. LYMPH NODES: No lymphadenopathy. MUSCULOSKELETAL: No acute or suspicious osseous abnormality. OTHER: IMPRESSION: Emphysematous cystitis. Patchy opacity in the posterior right lung base likely pneumonia. 11 mm nodule in the right middle lobe, unchanged since 04/08/2023. Recommend follow-up CT chest in one year for documentation of stability. Moderate stool retention throughout a mildly distended colon. LEFT VENTRICULAR WALL MOTION: SEVERE GLOBAL HYPOKINESIS DOPPLER/COLOR FLOW: DIASTOLIC DYSFUNCTION COMMENTS: 1. SEVERELY REDUCED LEFT VENTRICULAR SYSTOLIC FUNCTION, EJECTION FRACTION 10%, SEVERE GLOBAL HYPOKINESIS 2. CAN NOT RULE OUT LEFT VENTRICULAR THROMBUS 3. DIASTOLIC DYSFUNCTION 4. ELEVATED FILLING PRESSURE (RIGHT ATRIUM GREATER THAN 20 mmHg) 5. MODERATE PULMONARY HYPERTENSION (RIGHT VENTRICULAR SYSTOLIC PRESSURE 50-55 mmHg) Conclusions/Impression: CKD I with Proteinuria -No NSAIDs NAG Metabolic Acidosis likely due to GI loss Hx colon cancer s/p right hemicolectomy and ileostomy reversal -Continue oral bicarb QID -Continue Questran Hypophosphatemia -Replete prn HTN with CKD/ CHF -Continue Coreg Systolic Diastolic CHF, chronic Pulmonary HTN -Daily weight DM II with CKD -RISS Hypoalbuminemia Protein calorie malnutrition -Continue protein supplementation Anemia in chronic illness -Monitor H&H BPH with LUTS -Continue tamsulosin Emphysematous cystitis with hematuria Klebsiella Pneumoniae ESBL -Continue Abx Hospitalist note reviewed Case discussed with Dr. Luna
[2025-02-05 04:04] LABS: Hematocrit 26.8 % (39.6-49.0); Hemoglobin 8.9 g/dL (13.6-17.9); MCH 30.7 pg (27.0-35.0); MCHC 33.3 g/dL (32.0-36.0); MCV 92.2 fL (80-100); MPV 8.8 fL (7.6-11.3); Platelets 179 thou/uL (152-406); Red Cell Distribution Width 17.2 % (12.1-15.2)
[2025-02-05 04:55] LABS: Albumin 2.1 g/dL (3.4-5.0); Anion Gap 11.1 mEq/L (5.0-15.0); Magnesium 1.9 mg/dL (1.6-2.4); Phosphorus 4.1 mg/dL (2.5-4.9); Potassium 4.1 mEq/L (3.5-5.1)
--- NOTE | 2025-02-05 08:31 | P.DS ---
Admission Date: 01/19/25 Discharge Date: 02/05/25 Disposition: TRANSFER TO SNF - REHAB Discharge Condition: GOOD Reason for Admission: Syncope Consultations: ID - Dr. Avila Nephrology - Dr. Leary Brief History of Present Illness: 54 yo M, PMH: chronic systolic heart failure with recent echo showing EF of 10% status post AICD placement, diabetes, hypertension, colon cancer Patient brought to ER with syncopal episode. He apparently slid off his bed while attempting to stand up. Patient has a complex medical history with a recent cholecystectomy and had a prolonged postoperative course in [facility] with infection with a C. difficile. Patient complains of generalized weakness and fatigue. Patient was assessed in the ER and was admitted for further management of pneumonia and syncopal workup. 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 difficile Metabolic acidosis Intractable Nausea Hx esophageal ulcers (Oct 2024) Hx recent cholecystectomy (12/25/24) Hx colon cancer s/p right hemicolectomy and ileostomy reversal Hyponatremia, mild, likely hypovolemic, resolved CKD 3 Chronic diastolic CHF (20-24% EF 10/2024) Pulmonary hypertension Hypertension Hyperlipidemia BPH with LUTS Chronic anemia IDDM2 Physician discharge instructions: Patient presented with worsening weakness/fatigue after syncopal episode at home, secondary to emphysematous cystitis (urine culture grew Klebsiella Pneumoniae ESBL) CT chest/abd/pelvis consistent with emphysematous cystitis, also noted moderate stool burden. CT head was negative for any acute findings. Blood cultures were without growth. Urine culture grew Klebsiella Pneumoniae ESBL. Patient was started on empiric rocephin and had improvement of his symptoms. Cultures resulted with ESBL - resistant to rocephin, so his antibiotics were switched to merrem and patient continued to improve. PICC line was placed for IV antibiotics on 01/24. ID was consulted and initially recommended patient complete up to 2 weeks of antibiotics given his history of recurrent UTIs. Hospitalization was complicated by patient having diarrhea and recent diagnosis/treatment for C.diff. While on antibiotics - Merrem, he had increased frequency and more watery diarrhea. He did report recent C. Diff infection at rehab after a recent surgery. At rehab C. diff Ag positive, toxin negative. He reports being treated with oral vanc at the time (12/31-01/15). C.diff antigen and toxin were both negative here on 01/27, however given his recent infection, his current symptoms, and risk, the decision was made to treat for C.diff with dificid. Infectious disease recommended stopping antibiotics, so patient completed a 5 day course of IV Merrem (01/23 - 01/27), he was restarted on his home regimen of questran, and the dificid was added. He had gradual improvement of his diarrhea. Of note, he does have a history of hemicolectomy, and at baseline states he has ~3 loose/formed stool / day since that surgery years ago. He remained afebrile, without leukocytosis, and diarrhea continued to improve throughout rest of hospitalization. He was also noted to have a slight metabolic acidosis. Nephrology was consulted. IT was felt his was secondary to his GI losses. He was started on sodium bicarb tablets, and as his diarrhea improved and continued on these tablets, his CO2 on chemistry panel slowly improved, and was 18 on day of discharge. Nephrology recommends continue sodium bicarb on discharge, repeat BMP in ~3-5 days to continue to monitor and adjust dose as needed. Patient never had evidence of volume overload, and given his presentation with acute cystitis and diarrhea, his torsemide was held throughout the duration of his hospitalization. Recommend continue holding this medication, monitor for signs of volume overload / CHF, and restart when appropriate / follow up with PCP. His blood pressure remained at low-normal range 95-110/60-70 on his coreg. His home medications: midodrine and losartan were held during hospitalization. Continue to hold and monitor blood pressure. Medications: New: Sodium Bicarb 1300mg QID Dificid 200mg BID- started 01/27 - and final dose is 02/06 in morning Stop for now, and re-evaluate with your doctors on when to restart Losartan, Midodrine, torsemide, sodium chloride tablets Follow up: PCP 3-5 days Please call to schedule / confirm appointments Physical Exam: GEN: NAD CV: regular rate/rhythm, no edema Pulm: Nonlabored respirations on room air, clear bilaterally ABD: soft, nontender, nondistended Neuro: Normal speech, normal affect Vital Signs/Physical Exam: Temp Pulse Resp BP Pulse Ox 98.6 F 80 16 97/62 96 02/05/25 04:00 02/05/25 04:00 02/05/25 04:00 02/05/25 04:00 02/05/25 04:00 Laboratory Data at Discharge: WBC 4.90 thou/uL (4.3-10.9) 02/05/25 03:45 Hgb 8.9 g/dL (13.6-17.9) L 02/05/25 03:45 Hct 26.8 % (39.6-49.0) L 02/05/25 03:45 Plt Count 179 thou/uL (152-406) 02/05/25 03:45 PT 13.2 SECONDS (10-13.0) H 01/19/25 21:25 INR 1.17 01/19/25 21:25 Sodium 138 mEq/L (136-145) 02/05/25 03:45 Potassium 4.1 mEq/L (3.5-5.1) 02/05/25 03:45 BUN 47 mg/dL (7-18) H 02/05/25 03:45 Creatinine 0.83 mg/dL (0.70-1.30) 02/05/25 03:45 Glucose 169 mg/dL (74-106) H 02/05/25 03:45 Phosphorus 4.1 mg/dL (2.5-4.9) 02/05/25 03:45 Magnesium 1.9 mg/dL (1.6-2.4) 02/05/25 03:45 Total Bilirubin 0.5 mg/dL (0.2-1.0) 02/04/25 05:51 AST < 10 U/L (15-37) L 02/04/25 05:51 ALT 18 U/L (16-61) 02/04/25 05:51 Alkaline Phosphatase 297 U/L (45-117) H 02/04/25 05:51 Home Medications: Losartan Potassium [Cozaar] 12.5 mg PO DAILY 01/22/25 Midodrine HCl [Proamatine] 5 mg PO Q6HP PRN 01/22/25 RX: Aspirin Chewable [Aspirin Chewable*] 81 mg PO DAILY 01/22/25 RX: Atorvastatin Calcium [Lipitor*] 20 mg PO BEDTIME 01/22/25 RX: Budesonide [Pulmicort*] 1 puff IH BID 01/22/25 RX: Buspirone HCl [Buspar*] 5 mg PO BID 01/22/25 RX: Calcium Carbonate/Vitamin D3 [Oscal 500 + Vit D 200 Iu Tab*] 1 tab PO BID 01/22/25 RX: Cholestyramine [Cholestyramine Light] 4 gm PO TID 01/22/25 RX: Escitalopram Oxalate [Lexapro] 10 mg PO DAILY 01/22/25 RX: Ferrous Sulfate [Ferrous Sulfate*] 325 mg PO BID 01/22/25 RX: Folic Acid 1 mg PO DAILY 01/22/25 RX: Lactobacillus Acidophilus 1 each PO BID 01/22/25 RX: Lidocaine 4% Patch [Lidoderm 5% Patch*] 1 patch TD DAILY 01/22/25 RX: Ondansetron [Zofran (Odt)*] 4 mg PO Q8H PRN 01/22/25 RX: Pantoprazole [Protonix Tab*] 40 mg PO BID 01/22/25 RX: Potassium Chloride 10 meq PO DAILY 01/22/25 RX: Thiamine HCl [Vitamin B-1*] 100 mg PO DAILY 01/22/25 RX: Timolol Maleate [Timoptic] 1 gtt OP BID 01/22/25 RX: carvediloL [Coreg*] 6.25 mg PO BIDWM 01/22/25 Torsemide [Demadex] 20 mg PO DAILY 01/22/25 RX: Fidaxomicin [Dificid] 200 mg PO BID #2 tab 02/05/25 RX: Na Bicarb Tab [Sodium Bicarb 325 MG Tab*] 1,300 mg PO QID 10 Days #160 tab 02/05/25 New Medications: RX: Fidaxomicin [Dificid] 200 mg PO BID #2 tab RX: Na Bicarb Tab [Sodium Bicarb 325 MG Tab*] 1,300 mg PO QID 10 Days #160 tab Physician Discharge Instructions: Physician discharge instructions: Patient presented with worsening weakness/fatigue after syncopal episode at home, secondary to emphysematous cystitis (urine culture grew Klebsiella Pneumoniae ESBL) CT chest/abd/pelvis consistent with emphysematous cystitis, also noted moderate stool burden. CT head was negative for any acute findings. Blood cultures were without growth. Urine culture grew Klebsiella Pneumoniae ESBL. Patient was started on empiric rocephin and had improvement of his symptoms. Cultures resulted with ESBL - resistant to rocephin, so his antibiotics were switched to merrem and patient continued to improve. PICC line was placed for IV antibiotics on 01/24. ID was consulted and initially recommended patient complete up to 2 weeks of antibiotics given his history of recurrent UTIs. Hospitalization was complicated by patient having diarrhea and recent diagnosis/treatment for C.diff. While on antibiotics - Merrem, he had increased frequency and more watery diarrhea. He did report recent C. Diff infection at rehab after a recent surgery. At rehab C. diff Ag positive, toxin negative. He reports being treated with oral vanc at the time (12/31-01/15). C.diff antigen and toxin were both negative here on 01/27, however given his recent infection, his current symptoms, and risk, the decision was made to treat for C.diff with dificid. Infectious disease recommended stopping antibiotics, so patient completed a 5 day course of IV Merrem (01/23 - 01/27), he was restarted on his home regimen of questran, and the dificid was added. He had gradual improvement of his diarrhea. Of note, he does have a history of hemicolectomy, and at baseline states he has ~3 loose/formed stool / day since that surgery years ago. He remained afebrile, without leukocytosis, and diarrhea continued to improve throughout rest of hospitalization. He was also noted to have a slight metabolic acidosis. Nephrology was consulted. IT was felt his was secondary to his GI losses. He was started on sodium bicarb tablets, and as his diarrhea improved and continued on these tablets, his CO2 on chemistry panel slowly improved, and was 18 on day of discharge. Nephrology recommends continue sodium bicarb on discharge, repeat BMP in ~3-5 days to continue to monitor and adjust dose as needed. Patient never had evidence of volume overload, and given his presentation with acute cystitis and diarrhea, his torsemide was held throughout the duration of his hospitalization. Recommend continue holding this medication, monitor for signs of volume overload / CHF, and restart when appropriate / follow up with PCP. His blood pressure remained at low-normal range 95-110/60-70 on his coreg. His home medications: midodrine and losartan were held during hospitalization. Continue to hold and monitor blood pressure. Medications: New: Sodium Bicarb 1300mg QID Dificid 200mg BID- started 01/27 - and final dose is 02/06 in morning Stop for now, and re-evaluate with your doctors on when to restart Losartan, Midodrine, torsemide, sodium chloride tablets Follow up: PCP 3-5 days Please call to schedule / confirm appointments Followup: NONE,NONE [Primary Care Provider] - Time spent managing pt's care (in minutes): 45
[2025-02-05 08:54] VITALS: BP 103/66; TEMP 97.7
== END 2025-02-05 10:13 | DRG 689 ==
LOC: ER 20:00 → ERHOLD 23:35 → 2ND 01-20 00:46
PROVIDERS: ADMIT Family Medicine; ATTEND Hospitalist
PROC: 02HV33Z Insertion of Infusion Device into Superior Vena Cava, Percutaneous Approach (ICD-10-PCS; principal; 2025-01-23)
DX: N30.81 Other cystitis with hematuria (principal); E43 Unspecified severe protein-calorie malnutrition; R57.1 Hypovolemic shock; R64 Cachexia; Z68.1 Body mass index [BMI] 19.9 or less, adult; I13.0 Hypertensive heart and chronic kidney disease with heart failure and stage 1 through stage 4 chronic kidney disease, or unspecified chronic kidney disease; E87.1 Hypo-osmolality and hyponatremia; I50.32 Chronic diastolic (congestive) heart failure; Z16.12 Extended spectrum beta lactamase (ESBL) resistance; E87.20 Acidosis, unspecified; I47.20 Ventricular tachycardia, unspecified; N18.30 Chronic kidney disease, stage 3 unspecified; E11.22 Type 2 diabetes mellitus with diabetic chronic kidney disease; D63.1 Anemia in chronic kidney disease; I27.20 Pulmonary hypertension, unspecified; E86.0 Dehydration; E83.39 Other disorders of phosphorus metabolism; N40.1 Benign prostatic hyperplasia with lower urinary tract symptoms; E86.1 Hypovolemia; I25.10 Atherosclerotic heart disease of native coronary artery without angina pectoris; B96.1 Klebsiella pneumoniae [K. pneumoniae] as the cause of diseases classified elsewhere; Z85.038 Personal history of other malignant neoplasm of large intestine; Z95.810 Presence of automatic (implantable) cardiac defibrillator; Z90.49 Acquired absence of other specified parts of digestive tract; Z88.5 Allergy status to narcotic agent; Z79.4 Long term (current) use of insulin; Z79.82 Long term (current) use of aspirin; Z79.899 Other long term (current) drug therapy; Z95.5 Presence of coronary angioplasty implant and graft; Z11.52 Encounter for screening for COVID-19
CPT/HCPCS: 36415; 36569; 70450; 71045; 71250; 74176; 80048; 80053; 80069; 80076; 81001; 82947; 83605; 83735; 83880; 84100; 84145; 84436; 84443; 84484; 85025; 85027; 85610; 87040; 87077; 87086; 87088; 87186; 87324; 87428; 93005; 94760; 97110; 97116; 97161; 97530; 99285; J0692; J0696; J1650; J1815; J2185; J2405; J3370; J3475; J7030; J7050; J8499; P9047

== ENCOUNTER 2025-03-20 15:01 | Emergency (ER) | payer OTHER ==
[2025-03-20] MEDS ORDERED: FAMOTIDINE 20 MG/2 ML VIAL IV ONE (15:31)
[2025-03-20] MEDS ORDERED: NA CHLORIDE 0.9% 500 ML ONE (15:32)
[2025-03-20 16:17] LABS: Absolute Eosinophils 0.1 K/uL (0-0.5); Absolute Lymphocytes (CBC) 1.7 K/uL (0.7-4.9); Absolute Monocytes 0.7 K/uL (0.1-1.3); Absolute Neutrophil 3.8 K/uL (1.8-8.0); Basophils % 0.8 % (0-1.3); Eosinophils % 0.9 % (0-4.4); Hematocrit 33.6 % (39.6-49.0); Hemoglobin 11.3 g/dL (13.6-17.9); Lymphocytes % 27.4 % (15.3-44.8); MCH 31.4 pg (27.0-35.0); MCHC 33.6 g/dL (32.0-36.0); MCV 93.2 fL (80-100); MPV 10.7 fL (7.6-11.3); Monocytes % 11.1 % (3.3-12.3); Neutrophils % 59.8 % (41.7-73.7); Nucleated Red Blood Cells % 0.1 % (0-0); Platelets 114 thou/uL (152-406); Red Cell Distribution Width 18.4 % (12.1-15.2)
--- NOTE | 2025-03-20 16:19 | RAD REPORT ---
EXAMINATION: ONE VIEW CHEST XR CLINICAL INDICATION: CHEST PAIN TECHNIQUE: Frontal chest projection is submitted. Examination is limited by patient positioning and t echnique. COMPARISON: 03/06/2025 FINDINGS: Moderate bilateral pulmonary opacities are present with moderate pleural effusions, similar to compar yelena study. The heart is significantly enlarged. No displaced fractures identified. Multilead pacer/fibrillator device. IMPRESSION: Moderate CHF versus volume overload pattern, similar to prior study.
[2025-03-20 16:21] LABS: Influenza A Ag Negative; Influenza B Ag Negative; SARS-CoV-2 Antigen Rapid Res Negative (Negative)
[2025-03-20 16:25] LABS: D-Dimer 1.424 FEUug/mL (0-0.500); PT Prothrombin Time 15.2 SECONDS (10-13.0); Protime INR 1.35
[2025-03-20 16:28] LABS: AST/SGOT 13 U/L (15-37); Albumin 2.5 g/dL (3.4-5.0); Albumin/Globulin Ratio 0.7 (1.1-1.8); Alkaline Phosphatase 223 U/L (45-117); Anion Gap 12.2 mEq/L (5.0-15.0); BUN Blood Urea Nitrogen 48 mg/dL (7-18); Bicarbonate 25 mEq/L (21-32); Bilirubin Direct 0.4 mg/dL (0-0.2); Bilirubin Indirect, Calculated 0.5 mg/dL (0.2-0.8); Bilirubin Total 0.9 mg/dL (0.2-1.0); Globulin 3.6 g/dL (2.3-3.5); Glomerular Filtration Rate 61 ml/min (=/>90); Glucose Level 125 mg/dL (74-106); Lipase 9 U/L (13-75); Magnesium 1.9 mg/dL (1.6-2.4); Potassium 3.2 mEq/L (3.5-5.1); Protein, Total 6.1 g/dL (6.4-8.2); Sodium Level 139 mEq/L (136-145); Troponin High Sensitivity 31.8 pg/mL (<58.9)
[2025-03-20 16:33] LABS: ALT/SGPT < 14 U/L (16-61)
[2025-03-20 16:34] LABS: NT PRO-BNP > 35000 pg/mL (<125)
[2025-03-20] MEDS ORDERED: FUROSEMIDE 40 MG/4 ML VIAL ONE (16:53)
--- NOTE | 2025-03-20 17:02 | ER ---
Nurse's Notes [facility] Name: Royce Farr Age: 54 yrs Sex: Male : 1970 Arrival Date: 03/20/2025 Time: 15:01 Bed 8 Private MD: Diagnosis: Chest pain, unspecified;Cardiomegaly;Presence of cardiac pacemaker;Dyspnea;Unspecified kidney failure;Hypokalemia;Chronic combined systolic (congestive) and diastolic (congestive) heart failure-EF 10% Presentation: 03/20 15:07 Chief complaint: EMS states: they were toned out for CP, SOB, and generalized weakness. kc6 Coronavirus screen: At this time, the client does not indicate any symptoms associated with coronavirus-19. Ebola Screen: No symptoms or risks identified at this time. Initial Sepsis Screen: Does the patient meet any 2 criteria? No. Patient's initial sepsis screen is negative. Does the patient have a suspected source of infection? No. Patient's initial sepsis screen is negative. Risk Assessment: Do you want to hurt yourself or someone else? Patient reports no desire to harm self or others. Onset of symptoms was March 20, 2025. Care prior to arrival: Medication(s) given: ASA, 81 mg, x 4, zofran 4 mg, IV initiated. 20 GA, in the left hand, Glucose check: 193 Oxygen administered. via nasal cannula. 15:07 Method Of Arrival: EMS: [place] [id number] 15:07 Acuity: SANDRO 3 kc6 Historical: - Allergies: 15:09 Morphine; kc6 - PMHx: 15:09 Hypertensive disorder; diabetes mellitus; Congestive heart failure; colon cancer (colon kc6 cancer); - PSHx: 15:09 Cholecystectomy; Defibrilator; kc6 - Immunization history:: Adult Immunizations up to date. - Infectious Disease History:: Denies. - Social history:: Smoking status: Patient denies any tobacco usage or history of. Screenin:[facility] Fall Risk Assessment (Adult) History of falling in the last 3 months, kc6 including since admission No falls in past 3 months (0 pts) Confusion or Disorientation No (0 pts) Intoxicated or Sedated No (0 pts) Impaired Gait Yes (1 pt) Mobility Assist Device Used Yes (1 pt) Altered Elimination No (0 pt) Score/Fall Risk Level 0 - 2 = Low Risk Oriented to surroundings. Abuse screen: Denies threats or abuse. Denies injuries from another. Nutritional screening: No deficits noted. Tuberculosis screening: No symptoms or risk factors identified. Assessment: 15:10 General: Appears in no apparent distress. uncomfortable, slender, well groomed, kc6 Behavior is calm, cooperative, appropriate for age. Pain: Complains of pain in chest Pain does not radiate. Pain began 1 day ago. Neuro: Level of Consciousness is awake, alert, obeys commands, Oriented to person, place, time, situation, Appropriate for age. Cardiovascular: Reports chest pain, shortness of breath. Respiratory: Reports shortness of breath at rest on exertion Airway is patent Trachea midline Respiratory effort is even, labored, pursed lip, Respiratory pattern is symmetrical, Breath sounds with wheezes bilaterally. Onset: The symptoms/episode began/occurred today, the patient has moderate shortness of breath. GI: No signs and/or symptoms were reported involving the gastrointestinal system. : No signs and/or symptoms were reported regarding the genitourinary system. EENT: No signs and/or symptoms were reported regarding the EENT system. Derm: No signs and/or symptoms reported regarding the dermatologic system. Skin is intact, is fragile, is thin, with poor turgor Skin is dry, Skin is pale, Skin temperature is warm. Musculoskeletal: No signs and/or symptoms reported regarding the musculoskeletal system. Circulation, motion, and sensation intact. Range of motion: intact in all extremities. 16:42 Reassessment: Patient appears in no apparent distress at this time. No changes from kc6 previously documented assessment. Patient and/or family updated on plan of care and expected duration. Pain level reassessed. Patient is alert, oriented x 3, equal unlabored respirations, skin warm/dry/pink. 17:28 Reassessment: Patient appears in no apparent distress at this time. No changes from kc6 previously documented assessment. Patient and/or family updated on plan of care and expected duration. Pain level reassessed. Patient is alert, oriented x 3, equal unlabored respirations, skin warm/dry/pink. patient placed on male purewick at this time. 17:56 Respiratory: Patient placed on BiPAP:. kc6 18:45 Reassessment: Patient appears in no apparent distress at this time. No changes from kc6 previously documented assessment. Patient and/or family updated on plan of care and expected duration. Pain level reassessed. Patient is alert, oriented x 3, equal unlabored respirations, skin warm/dry/pink. 19:08 Reassessment: report from ney Benitez. General: Appears in no apparent distress. bm8 comfortable, Behavior is calm, cooperative, appropriate for age. Pain: Complains of pain in right leg and left leg Pain currently is 3 out of 10 on a pain scale. Neuro: No deficits noted. Level of Consciousness is awake, alert, obeys commands, Oriented to person, place, time, situation, Appropriate for age. Cardiovascular: Denies chest pain, Heart tones S1 S2 present Capillary refill is > 3 seconds is sluggish in bilateral fingers Patient's skin is warm and dry. Cardiovascular: Edema pitting to left lower thigh, left knee, left midcalf, left ankle, left foot, right lower thigh, right knee, right midcalf, right ankle, right foot and right toes. Respiratory: Airway is patent Trachea midline Respiratory effort is even, unlabored, Respiratory pattern is regular, symmetrical, PT on Bipap Breath sounds are diminished bilaterally. GI: No signs and/or symptoms were reported involving the gastrointestinal system. : No signs and/or symptoms were reported regarding the genitourinary system. EENT: No signs and/or symptoms were reported regarding the EENT system. Derm: No signs and/or symptoms reported regarding the dermatologic system. Musculoskeletal: No signs and/or symptoms reported regarding the musculoskeletal system. 20:14 Reassessment: Patient appears in no apparent distress at this time. No changes from bl1 previously documented assessment. Patient and/or family updated on plan of care and expected duration. Pain level reassessed. Patient is alert, oriented x 3, equal unlabored respirations, skin warm/dry/pink. 21:29 Reassessment: Patient appears in no apparent distress at this time. No changes from bl1 previously documented assessment. Patient and/or family updated on plan of care and expected duration. Pain level reassessed. Patient is alert, oriented x 3, equal unlabored respirations, skin warm/dry/pink. report given to NEY Yates \T\ [facility]. Vital Signs: 15:07 BP 99 / 71; Pulse 79; Resp 20 S; Temp 97.3(O); Pulse Ox 100% on 2 lpm NC; Weight 51.26 kc6 kg (M); Height 5 ft. 5 in. (R); 16:43 BP 99 / 79; Pulse 76; Resp 20 S; Pulse Ox 100% on 2 lpm NC; kc6 17:28 BP 97 / 73; Pulse 78; Resp 20 S; Pulse Ox 100% on 2 lpm NC; kc6 18:46 BP 93 / 78; Pulse 74; Resp 18 S; Pulse Ox 100% on BiPAP; kc6 19:08 BP 93 / 74; Pulse 73; Resp 24; Temp 97.3; Pulse Ox 100% on BiPAP; FiO2 50 %; Pain 3/10; bm8 20:08 BP 95 / 79; Pulse 75; Resp 18; Pulse Ox 100% on bipap; FiO2 50 %; bl1 21:29 BP 104 / 86; Pulse 76; Resp 24; Temp 97.3; Pulse Ox 100% on BiPAP; Pain 3/10; bl1 15:07 Body Mass Index 18.80 (51.26 kg, 165.1 cm) kc6 19:08 Pain Scale: Adult bm8 21:29 Pain Scale: Adult bl1 [place] Coma Score: 16:53 Eye Response: spontaneous(4). Motor Response: obeys commands(6). Verbal Response: gustavo oriented(5). Total: 15. 19:08 Eye Response: spontaneous(4). Motor Response: obeys commands(6). Verbal Response: bm8 oriented(5). Total: 15. 21:29 Eye Response: spontaneous(4). Motor Response: obeys commands(6). Verbal Response: bl1 oriented(5). Total: 15. ED Course: 15:02 Patient arrived in ED. eb 15:04 Caio Bello MD is Attending Physician. gustavo 15:07 Eli Gonzalez RN is Primary Nurse. kc6 15:09 Triage completed. kc6 15:09 Arm band placed on. kc6 15:09 Maintain EMS IV. Dressing intact. Good blood return noted. Site clean \T\ dry. Gauge \T\ macarena 6 site: 20G LHAND. Flushed with 10 mL NS. Oxygen administration via nasal cannula \T\ 2L/min. 15:10 Patient has correct armband on for positive identification. Bed in low position. Call [facility] light in reach. Side rails up X2. security monitor on. Pulse ox on. NIBP on. Door closed. Noise minimized. Lights dimmed. Warm blanket given. Pillow given. Verbal reassurance given. 15:55 COVID-19 Ag + Flu A+B Ag Sent. [facility] 15:55 Initial lab(s) drawn, by me, sent to lab. Missed attempt(s): 20 gauge in right upper kc6 arm. Missed attempt(s): 22 gauge in right forearm. 16:03 XRAY Chest (1 view) In Process Unspecified. EDMS 16:06 Initial lab(s) drawn, by me, sent to lab. Inserted saline lock: 22 gauge in right hand, aa5 using aseptic technique. Blood collected. Flushed with 10 mL NS. 16:56 David Luna MD is Hospitalizing Provider. [facility] 17:[address] Bello with Elizabeth from the [facility]. eb 17:28 Placed in gown. Repositioned patient. Cleaned of incontinence. Linen changed. kc6 17:36 Radiology exam delayed due to getting ulstraound done at this time. nj 17:43 US Extremity Venous W Compression Facundo In Process Unspecified. EDMS 17:[address] via stretcher. kc6 18:06 CT Chest For PE Angio In Process Unspecified. EDMS 18:[address] Bashir the windows security engineer computer applications developer for [facility] with Dr. Bello for eb patient transfer consultation. 19:08 Provided Education on: need for transfer. Client placed on continuous cardiac and pulse bm8 oximetry monitoring. NIBP monitoring applied. security monitor on. Pulse ox on. NIBP on. Door closed. Noise minimized. Warm blanket given. Pillow given. Verbal reassurance given. Head of bed lowered. 19:08 No provider procedures requiring assistance completed. O2 via bipap settings 24R, 10/5 bm8 and 50% Response to oxygen therapy: symptoms improved. 19:57 [facility] called to advise patient does have a bed, but will not receive MOT till room is vk cleaned. 20:42 Patient was accepted to [facility] to [facility] to CCU [address] [place] [address] Bed 6 per transfer vk coordinator Mirna Joel report # [phone]. 21:29 initiated transport with [facility]s spoke with Saran patient was accepted. vk 21:46 Patient transferred, IV remains in place. bl1 Administered Medications: 16:47 Discontinued: ns 0.9% 500 ml 500 ml IV at 1 bolus once; to be given as a bolus over 30 gustavo minutes 15:33 Not Given (administered by ems SHRINK PIT SUPERVISOR): aspirinchewable tablet 324 mg PO once; 81 mg kc6 tablets x 4 15:55 Drug: NS 0.9% IV 500 ml 500 ml IV at 1 bolus once; to be given as a bolus over 30 kc6 minutes Volume: 500 ml; Route: IV; Rate: 1 bolus; Site: left hand; 17:06 Follow up: Response: No adverse reaction; IV Status: Completed infusion; IV Intake: kc6 500ml 15:55 Drug: Famotidine IVP 20 mg IVP once; dilute with 10 mL 0.9% NaCl; give over 2 minutes kc6 Route: IVP; Site: left hand; 17:05 Follow up: Response: No adverse reaction [facility] 17:01 CANCELLED (Duplicate Order): potassiumeffervescent tablet 25 meq PO once; dissolve in 4 gustavo ounces of water or juice 17:27 Drug: Furosemide IVP 40 mg IVP once; give over 2 minutes Route: IVP; Site: left hand; kc6 17:55 Follow up: Response: No adverse reaction kc6 17:27 Drug: Potassium PO Effervescent Tablet 50 mEq PO once; dissolve in 4 ounces of water or kc6 juice Route: PO; 17:56 Follow up: Response: No adverse reaction kc Medication: 19:08 VIS not applicable for this client. bm8 Intake: 17:06 IV: 500ml; Total: 500ml. kc6 Outcome: 17:01 Decision to Hospitalize by Provider. gustavo 18:19 ER care complete, transfer ordered by . gustavo 21:44 Transferred by ground EMS to other acute care facility: [facility]. bl1 21:44 Condition: stable 21:44 Discharge instructions given to patient, Instructed on the need for transfer, 21:55 Patient left the ED. bm8 22:00 Transferred by ground EMS Transfer form completed. X-rays sent w/ patient. bm8 Signatures: Dispatcher [employer] EDCaio Amaya MD MD gustavo Her, Leti, RN RN [email or web address] Jose J Oshea Elizabeth eb Campbell, Kaitlyn RN RN kc6 Gunjan Summers Brad, RN RN bm8 Savannah Nair RN RN bl1 Corrections: (The following items were deleted from the chart) 15:09 15:09 PMHx: colon cancer (Defibrilator ); kc6 kc6 21:48 21:47 Discharge instructions given to Instructed on bl1 bl1
--- NOTE | 2025-03-20 17:02 | EDPHYS ---
Physician Documentation [facility] Name: Royce Farr Age: 54 yrs Sex: Male : 1970 Arrival Date: 03/20/2025 Time: 15:01 Bed 8 Private MD: ED Physician Caio Bello HPI: 03/20 16:52 This 54 yrs old Male presents to ER via EMS with complaints of Chest Pain, gustavo Shortness Of Breath, General Weakness. 16:52 The patient or guardian reports chest pain that is located primarily in the anterior gustavo chest wall. Onset: today. The pain does not radiate. Historical: - Allergies: 15:09 Morphine; kc6 - PMHx: 15:09 Hypertensive disorder; diabetes mellitus; Congestive heart failure; colon cancer (colon kc6 cancer); - PSHx: 15:09 Cholecystectomy; Defibrilator; kc6 - Immunization history:: Adult Immunizations up to date. - Infectious Disease History:: Denies. - Social history:: Smoking status: Patient denies any tobacco usage or history of. ROS: 16:53 Constitutional: Negative for fever, chills, and weight loss, Eyes: Negative for injury, gustavo pain, redness, and discharge, ENT: Negative for injury, pain, and discharge, Neck: Negative for injury, pain, and swelling, Cardiovascular: Negative for chest pain, palpitations, and edema, Abdomen/GI: Negative for abdominal pain, nausea, vomiting, diarrhea, and constipation, Back: Negative for injury and pain, : Negative for injury, bleeding, discharge, and swelling, Neuro: Negative for headache, weakness, numbness, tingling, and seizure, Psych: Negative for depression, anxiety, suicide ideation, homicidal ideation, and hallucinations, Allergy/Immunology: Negative for hives, rash, and allergies, Endocrine: Negative for neck swelling, polydipsia, polyuria, polyphagia, and marked weight changes, 16:53 Cardiovascular: Positive for chest pain, edema, orthopnea, 16:53 Respiratory: Positive for cough, orthopnea, shortness of breath, at rest. 16:53 MS/extremity: Positive for swelling, of the right leg and left leg, 16:53 Skin: Positive for pallor, Exam: 16:53 Constitutional: This is a well developed, well nourished patient who is awake, alert, gustavo and in no acute distress. Head/Face: Normocephalic, atraumatic. Eyes: Pupils equal round and reactive to light, extra-ocular motions intact. Lids and lashes normal. Conjunctiva and sclera are non-icteric and not injected. Cornea within normal limits. Periorbital areas with no swelling, redness, or edema. ENT: Nares patent. No nasal discharge, no septal abnormalities noted. Tympanic membranes are normal and external auditory canals are clear. Oropharynx with no redness, swelling, or masses, exudates, or evidence of obstruction, uvula midline. Mucous membranes moist. Neck: Trachea midline, no thyromegaly or masses palpated, and no cervical lymphadenopathy. Supple, full range of motion without nuchal rigidity, or vertebral point tenderness. No Meningismus. Abdomen/GI: Soft, non-tender, with normal bowel sounds. No distension or tympany. No guarding or rebound. No evidence of tenderness throughout. Back: No spinal tenderness. No costovertebral tenderness. Full range of motion. Male : Normal genitalia with no discharge or lesions. Skin: Warm, dry with normal turgor. Normal color with no rashes, no lesions, and no evidence of cellulitis. Neuro: Awake and alert, GCS 15, oriented to person, place, time, and situation. Cranial nerves II-XII grossly intact. Motor strength 5/5 in all extremities. Sensory grossly intact. Cerebellar exam normal. Normal gait. Psych: Awake, alert, with orientation to person, place and time. Behavior, mood, and affect are within normal limits. 16:53 Chest/axilla: Inspection: normal, Palpation: is normal, Axilla: are normal, Lymph nodes: lymphadenopathy is not appreciated, 16:53 Cardiovascular: Rate: normal, Rhythm: regular, Pulses: Pulses are 4+ in bilateral radial, brachial, femoral, popliteal, posterior tibial and and dorsalis pedis arteries.. Heart sounds: normal, normal S1and S2, no S3 or S4, no murmur, no rub, no gallop, Edema: 3+ edema to level of left midcalf and right midcalf, JVD: is noted bilaterally, to the angle of the jaw, 16:53 ECG was reviewed by the Attending Physician. 16:53 Respiratory: the patient does not display signs of respiratory distress, Respirations: normal, Breath sounds: rales, that are moderate, are heard in the left posterior lower lobe, right posterior middle lobe and right posterior lower lobe, Respiratory rate: 20 16:53 Musculoskeletal/extremity: ROM: no acute changes, intact in all extremities, full active range of motion, full passive range of motion, Circulation is intact in all extremities. Sensation intact. Compartment Syndrome exam of affected extremity: is normal. DVT Exam: no pain, negative Homans' sign noted on exam, no appreciated bluish discoloration, no erythema, no increased warmth, swelling, tenderness, 17:04 ECG was reviewed by the Attending Physician. [facility] Vital Signs: 15:07 BP 99 / 71; Pulse 79; Resp 20 S; Temp 97.3(O); Pulse Ox 100% on 2 lpm NC; Weight 51.26 kc6 kg (M); Height 5 ft. 5 in. (R); 16:43 BP 99 / 79; Pulse 76; Resp 20 S; Pulse Ox 100% on 2 lpm NC; kc6 17:28 BP 97 / 73; Pulse 78; Resp 20 S; Pulse Ox 100% on 2 lpm NC; kc6 18:46 BP 93 / 78; Pulse 74; Resp 18 S; Pulse Ox 100% on BiPAP; kc6 19:08 BP 93 / 74; Pulse 73; Resp 24; Temp 97.3; Pulse Ox 100% on BiPAP; FiO2 50 %; Pain 3/10; bm8 20:08 BP 95 / 79; Pulse 75; Resp 18; Pulse Ox 100% on bipap; FiO2 50 %; bl1 21:29 BP 104 / 86; Pulse 76; Resp 24; Temp 97.3; Pulse Ox 100% on BiPAP; Pain 3/10; bl1 15:07 Body Mass Index 18.80 (51.26 kg, 165.1 cm) kc6 19:08 Pain Scale: Adult bm8 21:29 Pain Scale: Adult bl1 [place] Coma Score: 16:53 Eye Response: spontaneous(4). Motor Response: obeys commands(6). Verbal Response: gustavo oriented(5). Total: 15. 19:08 Eye Response: spontaneous(4). Motor Response: obeys commands(6). Verbal Response: bm8 oriented(5). Total: 15. 21:29 Eye Response: spontaneous(4). Motor Response: obeys commands(6). Verbal Response: bl1 oriented(5). Total: 15. MDM: 15:04 Medical Screening Exam initiated gustavo 17:02 Antibiotic administration: Not indicated. Differential diagnosis: open fracture, closed gustavo fracture, contusion, abrasion, tendonitis, Anemia Anxiety Reaction asthma, Bronchitis CHF exacerbation, Chronic Obstructive Pulmonary Disease abnormal EKG, acute myocardial infarction, anxiety, coronary artery disease chest wall pain, congestive heart failure Cholelithiasis costochondritis, gastroesophageal reflux disease (GERD), hiatal hernia, pneumonia, pneumothorax, pulmonary embolus, stable angina, unstable angina, Myocardial Infarction pneumonia, pulmonary edema, reactive airway disease. Differential Diagnosis altered mental status, sepsis, flu. HEART Score: History: Moderately Suspicious (1), ECG: Non specific repolarization disturbance / LBTB / PM (1), Age: > 45 and < 65 years (1), Risk Factors: > or = 3 Risk factors for atherosclerotic disease (2), [Hypercholesterolemia] [Hypertension] [DM] [+ Family HX] Troponin: < or = 1 x Normal Limit (0), Total Score = 5. The patient was given aspirin in the Emergency Department. RIGOBERTO Risk Score: 1 - Three or more CAD risk factors, 1- Known CAD, 1 - Recent [<24hrs] Severe Angina, TOTAL SCORE = 3. Immunization status: Influenza vaccine: within last 5 years. Data reviewed: vital signs, nurses notes, lab test result(s), EKG, radiologic studies. Consideration of Admission/Observation Patient was admitted/placed on observation. Escalation of care including admission/observation considered. I considered the following discharge prescriptions or medication management in the emergency department Medications were administered in the Emergency Department. See MAR. Test considered but Not performed: Ultrasound NO 2 D ECHO. Care significantly affected by the following chronic conditions: Diabetes, Hypertension, Cancer, Chronic Kidney Disease. Counseling: I had a detailed discussion with the patient and/or guardian regarding the historical points, exam findings, and any diagnostic results supporting the discharge/admit diagnosis, lab results, radiology results, the need for further work-up and treatment in the hospital. 03/20 15:15 Order name: Basic Metabolic Panel; Complete Time: 16:46 [facility] 03/20 15:15 Order name: CBC with Diff; Complete Time: 16:46 [facility] 03/20 15:15 Order name: D-Dimer; Complete Time: 16:46 03/20 15:15 Order name: LFT's; Complete Time: 16:46 03/20 15:15 Order name: Magnesium; Complete Time: 16:46 [facility] 03/20 15:15 Order name: NT PRO-BNP; Complete Time: 16:46 03/20 15:15 Order name: PT-INR; Complete Time: 16:46 03/20 15:15 Order name: Troponin HS; Complete Time: 16:46 03/20 15:15 Order name: Lipase; Complete Time: 16:46 03/20 15:15 Order name: COVID-19 Ag + Flu A+B Ag; Complete Time: 16:46 gustavo 03/20 15:15 Order name: XRAY Chest (1 view); Complete Time: 16:46 [facility] 03/20 16:48 Order name: US Extremity Venous W Compression Facundo; Complete Time: 18:00 [facility] 03/20 16:48 Order name: CT Chest For PE Angio [facility] 03/20 17:16 Order name: BIPAP ld1 03/20 15:15 Order name: EKG; Complete Time: 15:16 gustavo 03/20 15:15 Order name: Cardiac monitoring; Complete Time: 15:24 [facility] 03/20 15:15 Order name: EKG - Nurse/Tech; Complete Time: 15:24 [facility] 03/20 15:15 Order name: IV Saline Lock; Complete Time: 15:24 [facility] 03/20 15:15 Order name: Labs collected and sent; Complete Time: 16:06 [facility] 03/20 15:15 Order name: O2 Per Protocol; Complete Time: 15:24 [facility] 03/20 15:15 Order name: O2 Sat Monitoring; Complete Time: 15:24 [facility] EC:04 Rate is 76 beats/min. Rhythm is regular. QRS [place] is Normal. [place] interval is normal. QRS gustavo interval is normal. QT interval is normal. No Q waves. T waves are Normal. ST Segment is depressed in leads III, aVR, V1, V2, V3. Clinical impression: NSR w/ Non-specific ST/T Changes. Interpreted by me. Reviewed by me. Administered Medications: 16:47 Discontinued: ns 0.9% 500 ml 500 ml IV at 1 bolus once; to be given as a bolus over 30 gustavo minutes 15:33 Not Given (administered by ems FORENSICS TEAM DIRECTOR): aspirinchewable tablet 324 mg PO once; 81 mg kc6 tablets x 4 15:55 Drug: NS 0.9% IV 500 ml 500 ml IV at 1 bolus once; to be given as a bolus over 30 kc6 minutes Volume: 500 ml; Route: IV; Rate: 1 bolus; Site: left hand; 17:06 Follow up: Response: No adverse reaction; IV Status: Completed infusion; IV Intake: kc6 500ml 15:55 Drug: Famotidine IVP 20 mg IVP once; dilute with 10 mL 0.9% NaCl; give over 2 minutes kc6 Route: IVP; Site: left hand; 17:05 Follow up: Response: No adverse reaction kc6 17:01 CANCELLED (Duplicate Order): potassiumeffervescent tablet 25 meq PO once; dissolve in 4 gustavo ounces of water or juice 17:27 Drug: Furosemide IVP 40 mg IVP once; give over 2 minutes Route: IVP; Site: left hand; kc6 17:55 Follow up: Response: No adverse reaction kc6 17:27 Drug: Potassium PO Effervescent Tablet 50 mEq PO once; dissolve in 4 ounces of water or kc6 juice Route: PO; 17:56 Follow up: Response: No adverse reaction kc6 Disposition Summary: 03/20/25 18:19 Transfer Ordered Notes: Transfer Location: [facility] gustavo Reason: Higher level of care gustavo Condition: Fair(03/20/25 18:19) gustavo Problem: an acute exacerbation(03/20/25 18:19) gustavo Symptoms: have worsened(03/20/25 18:19) gustavo Accepting Physician: DR JOSHUA(03/20/25 21:55) bm8 Diagnosis - Chest pain, unspecified(03/20/25 18:19) gustavo - Cardiomegaly gustavo - Presence of cardiac pacemaker gustavo - Dyspnea(03/20/25 18:19) gustavo - Unspecified kidney failure gustavo - Hypokalemia(03/20/25 18:19) gustavo - Chronic combined systolic (congestive) and diastolic (congestive) heart failure - gustavo EF 10%(03/20/25 18:19) Forms: - Medication Reconciliation Form gustavo - SBAR form gustavo Signatures: Dispatcher [employer] Caio Dior MD MD cha Botello, Elizabeth eb Campbell, Kaitlyn RN RN kc6 Juan Ramon Washington RN RN bm8 Corrections: (The following items were deleted from the chart) 15:09 15:09 PMHx: colon cancer (Defibrilator ); servando kcAnupam 16:14 16:12 Labs - recollect needed ordered. eb aa5 17:01 17:01 Potassium PO Effervescent Tablet 25 mEq PO once; dissolve in 4 ounces of water or gustavo juice ordered. gustavo 18:14 17:01 Inpatient Admission gustavo gustavo 18:14 17:01 David Luna gustavo gustavo 18:14 17:01 Telemetry/MedSurg (Inpatient) gustavo gustavo 18:14 17:01 Fair gustavo gustavo 18:14 17:01 new gustavo gustvao 18:14 17:01 have improved gustavo gustavo 18:14 17:01 Standard gustavo gustavo 18:14 17:01 gustavo gustavo 18:14 17:01 Chest pain, unspecified gustavo gustavo 18:14 17:01 Dyspnea gustavo gustavo 18:14 17:01 Edema, unspecified gustavo gustavo 18:14 17:01 Chronic combined systolic (congestive) and diastolic (congestive) heart failure gustavo gustavo 18:14 17:04 Chronic kidney disease, unspecified gustavo gustavo 18:14 17:04 Hypokalemia gustavo gustavo 18:19 18:19 BARNARD gustavo gustavo 21:55 18:19 DR TRES chen bm8
[2025-03-20] MEDS ORDERED: POTASSIUM 25 MEQ EFFERV TAB ONE (17:10)
--- NOTE | 2025-03-20 17:47 | RAD REPORT ---
EXAMINATION: US BILATERAL LOWER EXTREMITY VENOUS DOPPLER CLINICAL INDICATION: Pain;Swelling TECHNIQUE: Complete bilateral duplex sonography of the BILATERAL lower extremity veins was performed. The examination included compression for vein patency, color Doppler imaging and flow augmentation in response to distal compression of the distal external iliac, common femoral, femoral, popliteal, t ibial, and great and small saphenous veins. COMPARISON: No prior exam. FINDINGS: Duplex sonography testing of the veins of the BILATERAL lower extremity was performed. Color flow ashlee ging shows all veins to be compressible with [id number] color filling. Pulsatile and phasic flow is present within all lower extremity deep and superficial veins examined. IMPRESSION: There is no deep vein or superficial vein thrombosis.
--- NOTE | 2025-03-20 18:13 | RAD REPORT ---
EXAMINATION: CTA CHEST PE CLINICAL INDICATION: Dyspnea;PE TECHNIQUE: This examination was performed according to an angiographic protocol with 3D post-processi ng. This involves 3D reconstructions, MIPs, volume rendered images and/or shaded surface rendering. One or more of the following dose reduction techniques were used: Automated exposure control, adjustm ent of the mA and/or kV according to patient size, and/or iterative reconstruction. Unless otherwise specified, incidental findings do not require dedicated imaging follow-up. COMPARISON: 01/19/2025 FINDINGS: PULMONARY ARTERIES: Normal caliber. No evidence of pulmonary emboli to the subsegmental level. THORACIC AORTA: Not well contrast opacified for assessment. Coronary atherosclerosis is noted. LV gold cified pseudoaneurysm noted. LUNGS: Moderate airspace opacities in both lung bases, greater on the right. 9 mm nodule is seen abut ting the fissure in the right middle lobe region. PLEURA: Moderate loculated right pleural effusion. Large left pleural effusion. MEDIASTINUM AND LYMPH NODES: No mediastinal mass or fluid collection. Normal size mediastinal, hilar, and axillary lymph nodes. OSSEOUS STRUCTURES AND CHEST WALL: Intact. UPPER ABDOMEN: No significant abnormalities. IMPRESSION: No evidence of pulmonary emboli to the subsegmental level. Large left and moderate right pleural effusion. Airspace opacities in both posterior lung bases probably atelectasis or pneumonia. 9 mm nodule abutting the fissure right middle lobe. Neoplasm is possible. Outpatient PET/CT follow-up would be recommended.
[2025-03-20 22:05] VITALS: TEMP 97.3; O2SAT 100
[2025-03-20 22:15] VITALS: BP 104/86
--- NOTE | 2025-03-24 12:30 | EKG ---
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
== END 2025-03-20 21:55 | disposition short-term general hospital (02) ==
LOC: ER 15:01
DX: R07.89 Other chest pain (principal); I51.7 Cardiomegaly; R06.00 Dyspnea, unspecified; N19 Unspecified kidney failure; E87.6 Hypokalemia; I50.42 Chronic combined systolic (congestive) and diastolic (congestive) heart failure; Z95.0 Presence of cardiac pacemaker; E11.9 Type 2 diabetes mellitus without complications; I10 Essential (primary) hypertension; Z85.038 Personal history of other malignant neoplasm of large intestine; Z11.52 Encounter for screening for COVID-19
CPT/HCPCS: 96361; 85025; 80048; 36415; 83735; 85610; 85379; 80076; 84484; 83690; 83880; 71275; 71045; 93970; 96375; 96374; 99285; 87428; 94660; Q9967; J1938; J7040; 93005

== ENCOUNTER 2025-06-12 16:34 | Emergency (ER) | payer OTHER ==
--- NOTE | 2025-06-12 18:04 | EDPHYS ---
Physician Documentation [facility] Name: Royce Farr Age: 54 yrs Sex: Male : 1970 Arrival Date: 06/12/2025 Time: 16:34 Bed 26 Private MD: ED Physician Caio Bello HPI: 06/12 18:04 This 54 yrs old Male presents to ER via Wheelchair with complaints of picc dr5 line problem. 18:04 Onset: The symptoms/episode began/occurred 12 day(s) ago. Patient is a 54-year-old male dr5 with history of colon cancer, congestive heart failure, diabetes, hypertension coming in with PICC line of right upper arm dressing change. Patient reports that he has been having issues with home health as well as insurance to have home health nurse come out and change dressing. Patient denies redness, swelling, tenderness around site. Patient's last PICC line change was on May 31, 2025.. Historical: - Allergies: 16:39 Morphine; ll1 - PMHx: 16:39 colon cancer (colon cancer); Congestive heart failure; diabetes mellitus; Hypertensive ll1 disorder; - PSHx: 16:39 Cholecystectomy; Defibrilator; PICC RUE (Defibrilator ); ll1 - Immunization history:: Adult Immunizations up to date. - Social history:: Smoking status: Patient denies any tobacco usage or history of. ROS: 18:04 Constitutional: as per hpi dr5 Exam: 18:04 Constitutional: This is a well developed, well nourished patient who is awake, alert, dr5 and in no acute distress. 18:04 Head/Face: Normocephalic, atraumatic. Eyes: Pupils equal round and reactive to light, dr5 extra-ocular motions intact. Lids and lashes normal. Conjunctiva and sclera are non-icteric and not injected. Cornea within normal limits. Periorbital areas with no swelling, redness, or edema. ENT: Nares patent. No nasal discharge, no septal abnormalities noted. Tympanic membranes are normal and external auditory canals are clear. Oropharynx with no redness, swelling, or masses, exudates, or evidence of obstruction, uvula midline. Mucous membranes moist. Chest/axilla: Normal chest wall appearance and motion. Nontender with no deformity. No lesions are appreciated. Cardiovascular: Regular rate and rhythm with a normal S1 and S2. Normal PMI, no JVD. No pulse deficits. Respiratory: Lungs have equal breath sounds bilaterally, clear to auscultation. No rales, rhonchi or wheezes noted. No increased work of breathing, no retractions or nasal flaring. Abdomen/GI: Soft, non-tender, non-distended Back: No spinal tenderness. No costovertebral tenderness. Full range of motion. Skin: Warm, dry with normal turgor. Normal color with no rashes, no lesions, and no evidence of cellulitis. PICC Line site is clean, dry, and no tenderness to palpation. MS/ Extremity: Pulses equal, no cyanosis. Neurovascular intact. Full, normal range of motion. Neuro: Awake and alert, GCS 15, oriented to person, place, time, and situation. Cranial nerves II-XII grossly intact. Motor strength 5/5 in all extremities. Sensory grossly intact. Cerebellar exam normal. Normal gait. Vital Signs: 16:40 BP 105 / 73; Pulse 102; Resp 17; Temp 97.5; Pulse Ox 100% ; Weight 41.28 kg; Height 5 ll1 ft. 6 in. ; Pain 4/10; 16:40 Body Mass Index 14.69 (41.28 kg, 167.64 cm) ll1 16:40 Pain Scale: Adult ll1 MDM: 16:39 Medical Screening Exam initiated gustavo 18:05 Differential diagnosis: viral Infection, bacterial infection, PICC line change. Data dr5 reviewed: vital signs, nurses notes. Consideration of Admission/Observation Escalation of care including admission/observation considered. Escalation considered if patient had PICC line infection. I considered the following discharge prescriptions or medication management in the emergency department. Care significantly affected by the following chronic conditions: Diabetes, Congestive Heart Failure, Cancer. Care significantly affected by the following Social Determinants of Health: Poor access to healthcare and/or lack of insurance, Poor access to transportation, Problems related to employment. Counseling: I had a detailed discussion with the patient and/or guardian regarding the historical points, exam findings, and any diagnostic results supporting the discharge/admit diagnosis, the presence of at least one elevated blood pressure reading (>120/80) during this emergency department visit, the need for outpatient follow up, for definitive care, a family practitioner, to return to the emergency department if symptoms worsen or persist or if there are any questions or concerns that arise at home. Special discussion: I discussed with the patient/guardian in detail that at this point there is no indication for admission to the hospital. It is understood, however, that if the symptoms persist or worsen the patient needs to return immediately for re-evaluation. ED course: PICC line dressing changed today. Will have patient follow-up with home health. Recommended coming back in a week if unable to get dressing change. All question answered. Strict ER precautions given. 06/12 16:40 Order name: Jaime. Order: clean and dress; Complete Time: 18:16 gustavo Administered Medications: 16:46 CANCELLED (Inappropriate at this time): cathflo activase2 mg IV Thrombolytics once; ll1 into each catheter lumen, may repeat once Disposition Summary: 06/12/25 18:03 Discharge Ordered Notes: Location: Home dr5 Condition: Stable dr5 Diagnosis - Encounter for change or removal of surgical wound dressing dr5 Followup: dr5 - With: Emergency Department - When: As needed - Reason: Worsening of condition Followup: dr5 - With: Private Physician - When: 1 - 2 days - Reason: Recheck today's complaints, Continuance of care, Re-evaluation by your physician Discharge Instructions: - Discharge Summary Sheet dr5 - PICC Home Care Guide dr5 Forms: - Medication Reconciliation Form dr5 - Patient Portal Instructions dr5 - Leadership Thank You Letter dr5 Addendum: 06/16/2025 13:59 Co-signature as Attending Physician, Caio Bello MD I agree with the assessment and c flannery plan of care. Signatures: Caio Bello MD MD cha Lewis, Lynsay RN RN ll1 Francois Thacker, DIEGO-C PIN PUSHER-Cdr5 Corrections: (The following items were deleted from the chart) 06/12 16:46 16:40 Cathflo Activase IV Thrombolytics 2 mg IV Thrombolytics once; into each catheter ll1 lumen, may repeat once ordered. gustavo
--- NOTE | 2025-06-12 18:04 | ER ---
Nurse's Notes [facility] Name: Royce Farr Age: 54 yrs Sex: Male : 1970 Arrival Date: 06/12/2025 Time: 16:34 Bed 26 Private MD: Diagnosis: Encounter for change or removal of surgical wound dressing Presentation: 06/12 16:40 Chief complaint: Patient states: Wants PICC line dressing change to RUE. Coronavirus ll1 screen: Client denies travel out of the [place] in the last 14 days. At this time, the client does not indicate any symptoms associated with coronavirus-19. Ebola Screen: Patient denies travel to an Ebola-affected area in the 21 days before illness onset. Initial Sepsis Screen: Does the patient meet any 2 criteria? No. Patient's initial sepsis screen is negative. Does the patient have a suspected source of infection? No. Patient's initial sepsis screen is negative. Risk Assessment: Do you want to hurt yourself or someone else? Patient reports no desire to harm self or others. Onset of symptoms was May 31, 2025. 16:40 Method Of Arrival: Wheelchair ll1 16:40 Acuity: SANDRO 4 ll1 Triage Assessment: 16:40 General: Appears in no apparent distress. Behavior is calm, cooperative, appropriate ll1 for age, Reports needing dressing change to PICC line RUE. Pain: Complains of pain in abdomen Pain currently is 3 out of 10 on a pain scale. Quality of pain is described as aching, crampy. GI: Reports lower abdominal pain, upper abdominal pain, cramping. Musculoskeletal: Reports PICC line needs dressing change. Historical: - Allergies: 16:39 Morphine; ll1 - PMHx: 16:39 colon cancer (colon cancer); Congestive heart failure; diabetes mellitus; Hypertensive ll1 disorder; - PSHx: 16:39 Cholecystectomy; Defibrilator; PICC RUE (Defibrilator ); ll1 - Immunization history:: Adult Immunizations up to date. - Social history:: Smoking status: Patient denies any tobacco usage or history of. Screenin:16 [facility] ED Fall Risk Assessment (Adult) History of falling in the last 3 months, jb4 including since admission No falls in past 3 months (0 pts) Confusion or Disorientation No (0 pts) Intoxicated or Sedated No (0 pts) Impaired Gait Yes (1 pt) Mobility Assist Device Used Yes (1 pt) Altered Elimination Yes (1 pt) Score/Fall Risk Level 3 or more points = High Risk Oriented to surroundings, Maintained a safe environment. Abuse screen: Denies threats or abuse. Nutritional screening: No deficits noted. Tuberculosis screening: No symptoms or risk factors identified. Assessment: 18:16 Reassessment: Patient appears in no apparent distress at this time. Patient and/or jb4 family updated on plan of care and expected duration. Pain level reassessed. Patient is alert, oriented x 3, equal unlabored respirations, skin warm/dry/pink. Picc line cleaned and dressed. Assisted by NEY Echeverria. Vital Signs: 16:40 BP 105 / 73; Pulse 102; Resp 17; Temp 97.5; Pulse Ox 100% ; Weight 41.28 kg; Height 5 ll1 ft. 6 in. ; Pain 4/10; 16:40 Body Mass Index 14.69 (41.28 kg, 167.64 cm) ll1 16:40 Pain Scale: Adult ll1 ED Course: 16:37 Patient arrived in ED. al6 16:39 Caio Bello MD is Attending Physician. gustavo 16:39 Arm band placed on. ll1 16:41 Triage completed. ll1 16:41 Francois Thacker FNP-C is [facility]. dr5 18:16 Patient has correct armband on for positive identification. Bed in low position. Call jb4 light in reach. Side rails up X 1. Provided Education on: plan of care. 18:16 No provider procedures requiring assistance completed. Patient did not have IV access jb4 during this emergency room visit. Administered Medications: 16:46 CANCELLED (Inappropriate at this time): cathflo activase2 mg IV Thrombolytics once; ll1 into each catheter lumen, may repeat once Medication: 18:16 VIS not applicable for this client. jb4 Outcome: 18:03 Discharge ordered by . dr5 18:16 Discharged to home via wheelchair, with family, jb4 18:16 Condition: stable 18:16 Discharge instructions given to patient, Instructed on discharge instructions, follow up and referral plans. Demonstrated understanding of instructions, follow-up care, 18:17 Patient left the ED. jb4 Signatures: Caio Bello MD MD cha Bryson, James, RN RN jb4 Vadim Pantoja, RN RN ll1 Kirstie, Francois, ICT SALES ASSISTANT-C ICT SALES ASSISTANT-Cdr5 Shannan Jeffers
[2025-06-12 21:51] VITALS: BP 105/73; TEMP 97.5; O2SAT 100
== END 2025-06-12 18:17 | disposition home or self-care (01) ==
LOC: ER 16:34
DX: Z48.01 Encounter for change or removal of surgical wound dressing (principal)
CPT/HCPCS: 99282

== ENCOUNTER 2025-06-19 18:16 | Inpatient (IN) | payer OTHER ==
--- NOTE | 2025-06-19 19:06 | RAD REPORT ---
EXAM: Chest Single View HISTORY: 54 years Male CHEST PAIN COMPARISON: 03/20/2025 FINDINGS: LUNGS/PLEURA: Small right pleural effusion. No definite edema. CARDIAC/MEDIASTINUM: Moderate cardiomegaly. UPPER ABDOMEN: No significant abnormality. BONES: No acute abnormality. LINES/TUBES/OTHER: Pacemaker/AICD. Right subclavian approach PICC with tip overlying the SVC. IMPRESSION: Small right pleural effusion and probable underlying atelectasis.. No overt pulmonary edema.
[2025-06-19 19:33] LABS: Absolute Lymphocytes (CBC) 1.2 K/uL (0.7-4.9); Hematocrit 29.0 % (39.6-49.0); Hemoglobin 10.1 g/dL (13.6-17.9); MCH 32.9 pg (27.0-35.0); MCHC 34.7 g/dL (32.0-36.0); MCV 94.7 fL (80-100); MPV 9.1 fL (7.6-11.3); Nucleated RBC Absolute Count 0.0 (0-0); Nucleated Red Blood Cells % 0.0 % (0-0); RBC Red Blood Cell Count 3.06 M/uL (4.33-5.43); White Blood Count 10.70 thou/uL (4.3-10.9)
[2025-06-19 19:33] LABS: PT Prothrombin Time 14.0 SECONDS (10-13.0); Protime INR 1.25
[2025-06-19 19:39] LABS: Influenza A Ag Negative; Influenza B Ag Negative; SARS-CoV-2 Antigen Rapid Res Negative (Negative)
[2025-06-19 19:55] LABS: ALT/SGPT 64.0 U/L (16-61); AST/SGOT 60.0 U/L (15-37); Albumin 3.3 g/dL (3.4-5.0); Albumin/Globulin Ratio 0.8 (1.1-1.8); Alkaline Phosphatase 196.0 U/L (45-117); Anion Gap 12.0 mEq/L (5.0-15.0); BUN Blood Urea Nitrogen 84.0 mg/dL (7-18); Bilirubin Indirect, Calculated 0.3 mg/dL (0.2-0.8); Globulin 4.2 g/dL (2.3-3.5); Glucose Level 159.0 mg/dL (74-106); Magnesium 2.2 mg/dL (1.6-2.4); NT PRO-BNP 12632.0 pg/mL (<125); Potassium 4.0 mEq/L (3.5-5.1); Troponin High Sensitivity 23.4 pg/mL (<58.9)
--- NOTE | 2025-06-19 20:53 | RAD REPORT ---
EXAMINATION: CTA CHEST PE CLINICAL INDICATION: Male, 54 years old. CHEST PAIN TECHNIQUE: This examination was performed according to an angiographic protocol with 3D post-processi ng. This involves 3D reconstructions, MIPs, volume rendered images and/or shaded surface rendering. One or more of the following dose reduction techniques were used: Automated exposure control, adjustm ent of the mA and/or kV according to patient size, and/or iterative reconstruction. Unless otherwise specified, incidental findings do not require dedicated imaging follow-up. [id number]. COMPARISON: 02/18/2025 FINDINGS: LOWER NECK: Visualized thyroid gland and soft tissues are normal. MEDIASTINUM AND LYMPH NODES: Prominent mediastinal and hilar lymph nodes which are likely reactive. THORACIC AORTA: No thoracic aortic aneurysm. PULMONARY ARTERIES: Enlarged main pulmonary arteries could indicate pulmonary artery hypertension. HEART: Moderate cardiomegaly. Severe coronary artery calcifications.No significant pericardial effusi on. LUNGS AND AIRWAYS: Intralobular septal thickening and groundglass opacities in lung bases. Chronic brady bpleural scarring in the right lower lobe. Unchanged solid right middle lobe nodule measuring 7 mm. This is unchanged since at least 01/19/2025. Right lower lobe airway fluid likely either secretions or aspirated material. There is some fluid at the right mainstem bronchus as well. PLEURA: Small bilateral effusions. No pneumothorax. OSSEOUS STRUCTURES AND CHEST WALL: Left upper chest wall pacemaker. UPPER ABDOMEN: No acute abnormalities. IMPRESSION: Negative for pulmonary embolism. Interstitial edema with small bilateral pleural effusions. Mucoid impacted and/or aspirated material in the right mainstem bronchus and right lower lobe airways .
--- NOTE | 2025-06-19 21:07 | RAD REPORT ---
EXAMINATION: Abdomen Pelvis W Contrast CLINICAL INDICATION: Male, 54 years old.diarrhea, vomiting TECHNIQUE: CT abdomen and pelvis was performed, after the administration of IV contrast, as per [facility] protocol. Axial, sagittal and coronal reconstructions were obtained. One or more of the following dose reduction techniques were used: Automated exposure control, adjustment of the mA and/o r kV according to patient size, and/or iterative reconstruction. Unless otherwise specified, incidental findings do not require dedicated imaging follow-up. [id number]. COMPARISON: 05/17/2024 FINDINGS: LOWER CHEST: Reference chest CT UPPER GI: No significant abnormality. LIVER: No significant focal abnormality. GALLBLADDER/BILE DUCTS: Cholecystectomy. Mild extra-hepatic biliary ductal dilatation is likely relat ed to the post-cholecystectomy state. Consider correlating with LFT's.? PANCREAS: Atrophy but no acute findings. SPLEEN: Mild splenomegaly. ADRENALS: No adrenal masses. KIDNEYS AND URETERS: Dilated right renal pelvis but no hydronephrosis.Low density and/or too small to characterize renal lesions which are statistically benign. ABDOMINAL AORTA AND OTHER VESSELS: Moderate atherosclerotic changes without aortic aneurysm. PERITONEUM: Nonspecific free fluid. LYMPH NODES: No pathologic lymphadenopathy. ABDOMINAL WALL: Unremarkable SMALL BOWEL/COLON: Diffuse small bowel and colonic distention with fluid. URINARY BLADDER: Distended bladder with mild wall thickening. REPRODUCTIVE ORGANS: No pathologic process. MUSCULOSKELETAL: No acute or suspicious osseous abnormality. ADDITIONAL FINDINGS: None. IMPRESSION: Diffuse distention of fluid-filled small bowel and colon likely reflecting an enterocolitis or malabs orptive process. No bowel obstruction.
--- NOTE | 2025-06-19 23:08 | EDPHYS ---
Physician Documentation [facility] Name: Royce Farr Age: 54 yrs Sex: Male : 1970 Arrival Date: 06/19/2025 Time: 18:16 Bed 6 Private MD: ED Physician Caio Bello HPI: 06/19 18:35 This 54 yrs old Male presents to ER via EMS with complaints of Abdominal Pain, Diarrhea.cp 18:35 The patient or guardian reports chest pain that is located primarily in the anterior cp chest wall. 18:35 Onset: intermittent for 2 weeks, persistent today. cp 18:35 The patient presents with abdominal pain diarrhea. Associated signs and symptoms: cp Pertinent negatives: constipation, fever, testicular pain, vomiting. Historical: - Allergies: 18:46 Morphine; ap3 - PMHx: 18:46 colon cancer (colon cancer); Congestive heart failure; diabetes mellitus; Hypertensive ap3 disorder; - PSHx: 18:46 Cholecystectomy; Defibrilator; PICC RUE (il); ap3 - Immunization history:: Adult Immunizations unknown. - Infectious Disease History:: Denies. - Social history:: Smoking status: unknown. ROS: 18:40 Constitutional: Negative for fever, poor PO intake, cp 18:40 Eyes: Negative for injury, pain, redness, and discharge, cp 18:40 ENT: Negative for drainage from ear(s), ear pain, sore throat, 18:40 Cardiovascular: Positive for chest pain, Negative for edema, palpitations, 18:40 Respiratory: Positive for cough, shortness of breath, 18:40 Abdomen/GI: Positive for abdominal pain, diarrhea, Negative for vomiting, constipation, 18:40 Neuro: Negative for altered mental status, syncope, 18:40 All other systems are negative, Exam: 18:45 Constitutional: The patient appears in no acute distress, alert, awake, cp non-diaphoretic, non-toxic, well developed, well nourished, 18:45 Head/Face: Normocephalic, atraumatic. cp 18:45 Eyes: Periorbital structures: appear normal, Pupils: equal, round, and reactive to light and accomodation, Conjunctiva: normal, Sclera: no appreciated abnormality, Lids and lashes: appear normal, bilaterally, 18:45 ENT: External ear(s): are unremarkable, Nose: is normal, Mouth: Lips: moist, Oral mucosa: moist, Posterior pharynx: Airway: no evidence of obstruction, patent, 18:45 Chest/axilla: Inspection: normal, 18:45 Cardiovascular: Rate: tachycardic, Rhythm: regular, Edema: is not appreciated, JVD: is not appreciated, 18:45 Respiratory: the patient does not display signs of respiratory distress, Respirations: labored breathing, that is mild, intercostal retractions, are absent, Breath sounds: decreased breath sounds, that are mild, throughout, 18:45 Abdomen/GI: Inspection: distension, that is mild, Bowel sounds: active, all quadrants, Palpation: soft, in all quadrants, mild abdominal tenderness, in all quadrants, 18:45 Skin: no rash present. 18:45 Neuro: Orientation: to person, place \T\ time. Mentation: is normal, 18:56 ECG was reviewed by the Attending Physician. Vital Signs: 18:43 BP 103 / 72; Pulse 101; Resp 19; Temp 97.5(O); Pulse Ox 100% ; ap3 20:34 BP 115 / 80; Pulse 96; Resp 18; Pulse Ox 100% ; cp4 21:40 BP 122 / 74; Pulse 109; Resp 18; Pulse Ox 100% ; cp4 22:30 BP 117 / 87; Pulse 119; Resp 18; Pulse Ox 96% ; cp4 23:46 BP 108 / 81; Pulse 119; Resp 18; Pulse Ox 98% ; cp4 08 00:51 BP 96 / 71; Pulse 84; Resp 18; Pulse Ox 100% on R/A; kd3 MDM: 06/19 18:30 Medical Screening Exam initiated sp3 23:00 Data reviewed: vital signs, nurses notes, lab test result(s), EKG, radiologic studies, cp CT scan, plain films, and as a result, I will admit patient. 23:00 Differential diagnosis: abnormal EKG, acute myocardial infarction, pericarditis, cp pneumonia, pneumothorax, pulmonary embolus, stable angina, unstable angina, bowel obstruction. Management of patient was discussed with the following: Hospitalist: DR Mcdowell will admit after discussion. I considered the following discharge prescriptions or medication management in the emergency department Medications were administered in the Emergency Department. See MAR. Independent interpretation of the following test(s) in the Emergency Department EKG: See my EKG interpretation above. Care significantly affected by the following chronic conditions: Diabetes, Congestive Heart Failure. Counseling: I had a detailed discussion with the patient and/or guardian regarding the historical points, exam findings, and any diagnostic results supporting the discharge/admit diagnosis, lab results, radiology results, the need for further work-up and treatment in the hospital. Response to treatment: the patient's symptoms have mildly improved after treatment. 06/19 18:30 Order name: Basic Metabolic Panel; Complete Time: 20:14 sp3 06/19 20:15 Interpretation: Normal except: NA 134; CL 108; CO2 18; GLUC 159; BUN 84; CRE 1.46; GFR cp 56. 06/19 18:30 Order name: CBC with Diff; Complete Time: 20:14 sp3 06/19 20:15 Interpretation: Normal except: RBC 3.06; HGB 10.1; HCT 29.0; CAMILLE% 79.0; LYM% 11.6; NEUT cp A 8.5. 06/19 18:30 Order name: LFT's; Complete Time: 20:14 sp3 06/19 20:16 Interpretation: Normal except: AST 60; ALT 64; ALK 196; BILID 0.3; ALB 3.3; GLOB 4.2; cp A/G 0.8. 06/19 18:30 Order name: Magnesium; Complete Time: 20:14 sp3 06/19 18:30 Order name: NT PRO-BNP; Complete Time: 20:14 sp3 06/19 20:16 Interpretation: NT PRO-BNP 22211; Reviewed. cp 06/19 18:30 Order name: PT-INR; Complete Time: 19:36 sp3 06/19 19:36 Interpretation: Reviewed. cp 06/19 18:30 Order name: Troponin HS; Complete Time: 20:14 sp3 06/19 18:35 Order name: Lipase; Complete Time: 20:14 cp 06/19 18:35 Order name: COVID-19 Ag + Flu A+B Ag; Complete Time: 20:14 cp 06/19 19:00 Order name: Fecal Leukocyte Stain 06/19 19:00 Order name: Ova And Parasites 06/19 19:00 Order name: Rotavirus Antigen 06/19 19:00 Order name: Stool Culture 06/19 19:00 Order name: CDIFF 06/19 21:45 Order name: Troponin High Sensitivity; Complete Time: 22:43 cp 06/19 22:43 Interpretation: Reviewed. 06/19 22:47 Order name: Blood Culture Adult (2) cp 06/19 22:47 Order name: Lactate w/ 2H reflex if indic. cp 06/19 23:47 Order name: CBC with Automated Diff EDMS 06/19 23:47 Order name: CBC with Automated Diff EDMS 06/19 23:47 Order name: Comprehensive Metabolic Panel EDMS 06/19 23:47 Order name: Comprehensive Metabolic Panel EDMS 06/19 23:47 Order name: Troponin High Sensitivity EDMS 06/19 23:47 Order name: Troponin High Sensitivity EDMS 06/19 23:47 Order name: Troponin High Sensitivity EDMS 06/19 23:47 Order name: Troponin High Sensitivity EDMS 06/19 18:30 Order name: XRAY Chest (1 view); Complete Time: 19:36 sp3 06/19 22:01 Interpretation: Report review. 06/19 20:18 Order name: CT Chest For PE Angio; Complete Time: 21:28 cp 06/19 21:29 Interpretation: Report reviewed. 06/19 20:18 Order name: CT Abd/Pelvis - IV Contrast Only; Complete Time: 21:28 cp 06/19 18:30 Order name: Cardiac monitoring; Complete Time: 18:53 sp3 06/19 18:30 Order name: EKG - Nurse/Tech; Complete Time: 18:53 sp3 06/19 18:30 Order name: IV Saline Lock; Complete Time: 19:28 sp3 06/19 18:30 Order name: Labs collected and sent; Complete Time: 19:28 sp3 06/19 18:30 Order name: O2 Per Protocol; Complete Time: 18:53 sp3 06/19 18:30 Order name: O2 Sat Monitoring; Complete Time: 18:53 sp3 06/19 21:30 Order name: Bladder Scanner: pre and post void; Complete Time: 22:48 cp EC:56 Rate is 99 beats/min. Rhythm is regular. LA interval is normal. QRS interval is cp prolonged at 158 msec. QT interval is normal. T waves are Inverted in lead aVR. Interpreted by me. Reviewed by me. Administered Medications: 23:51 Drug: Furosemide IVP 10 mg IVP once; give over 2 minutes Route: IVP; Site: left forearm;kd3 23:51 Drug: LevaQUIN IVPB 750 mg IVPB once Route: IVPB; Site: left antecubital; kd3 Disposition: 06/20 03:28 Co-signature as Attending Physician, Caio Bello MD I agree with the assessment and gustavo plan of care. Disposition Summary: 06/19/25 23:08 Hospitalization Ordered Notes: Hospitalization Status: Inpatient Admission cp Provider: True Mcdowell cp Location: Telemetry/MedSurg (Inpatient) cp Condition: Stable cp Problem: new cp Symptoms: have improved cp Bed/Room Type: Standard cp Room Assignment: 430(06/19/25 23:51) sp Diagnosis - Chest pain, unspecified cp - Unspecified combined systolic (congestive) and diastolic (congestive) heart failure cp - Other pneumonia, unspecified organism cp Forms: - Medication Reconciliation Form cp - SBAR form cp - Leadership Thank You Letter cp Signatures: Dispatcher [employer] EDMS Caio Bello MD MD cha Pinkerton, Shawna sp Page, Corey, PA-C PA-C Elyssa Abbott, RN RN ap3 Renata Muhammad MD MD sp3 Mesha Ashraf RN RN kd3 Corrections: (The following items were deleted from the chart) 06/19 18:30 18:30 BASIC METABOLIC PANEL+C.LAB.BRZ ordered. EDMS EDMS 18:30 18:30 CBC+H.LAB.BRZ ordered. EDMS EDMS 18:30 18:30 HEPATIC FUNCTION+C.LAB.BRZ ordered. EDMS EDMS 18:30 18:30 MAGNESIUM+C.LAB.BRZ ordered. EDMS EDMS 18:30 18:30 PROBNP+C.LAB.BRZ ordered. EDMS EDMS 18:30 18:30 PROTIME (+INR)+COAG.LAB.BRZ ordered. EDMS EDMS 18:30 18:30 Troponin High Sensitivity+C.LAB.BRZ ordered. EDMS EDMS 18:30 18:30 Chest Single View+RAD.RAD.BRZ ordered. EDMS EDMS 22:48 22:07 [place] ordered. cp kd3 23:51 23:08 cp sp
--- NOTE | 2025-06-19 23:08 | ER ---
Nurse's Notes [facility] Name: Royce Farr Age: 54 yrs Sex: Male : 1970 Arrival Date: 06/19/2025 Time: 18:16 Bed 6 Private MD: Diagnosis: Chest pain, unspecified;Unspecified combined systolic (congestive) and diastolic (congestive) heart failure;Other pneumonia, unspecified organism Presentation: 06/19 18:43 Chief complaint: EMS states: patient has been having nausea, vomiting, chest pain and ap3 abdominal pain for approx 2 weeks. patient reports watery stools that started today as well. Patient has an existing PICC line with an infusion going to the right upper arm. EMS initiated normal saline infusion and gave 2.5 droperidol. Coronavirus screen: At this time, the client does not indicate any symptoms associated with coronavirus-19. Ebola Screen: No symptoms or risks identified at this time. Initial Sepsis Screen: Does the patient meet any 2 criteria? HR > 90 bpm. Does the patient have a suspected source of infection? No. Patient's initial sepsis screen is negative. Risk Assessment: Do you want to hurt yourself or someone else? Patient reports no desire to harm self or others. Onset of symptoms is unknown. 18:43 Method Of Arrival: EMS: [facility] ap3 18:43 Acuity: SANDRO 3 ap3 Triage Assessment: 18:51 General: Appears patient came to ED with soiled brief. patient was promptly cleaned and ap3 changed. Behavior is calm, cooperative. Pain: Complains of pain in chest and abdomen Pain currently is 7 out of 10 on a pain scale. Neuro: Level of Consciousness is awake, alert, obeys commands, Oriented to person, place, time, situation, Appropriate for age Speech is normal. Cardiovascular: Patient's skin is warm and dry. Cardiovascular: Reports chest pain. Respiratory: Reports shortness of breath Airway is patent Respiratory effort is even, unlabored, Respiratory pattern is regular, symmetrical. GI: Reports lower abdominal pain, upper abdominal pain, diarrhea, nausea, vomiting. Historical: - Allergies: 18:46 Morphine; ap3 - PMHx: 18:46 colon cancer (colon cancer); Congestive heart failure; diabetes mellitus; Hypertensive ap3 disorder; - PSHx: 18:46 Cholecystectomy; Defibrilator; PICC RUE (il); ap3 - Immunization history:: Adult Immunizations unknown. - Infectious Disease History:: Denies. - Social history:: Smoking status: unknown. Screenin:53 Abuse screen: Denies threats or abuse. Nutritional screening: No deficits noted. ap3 Tuberculosis screening: No symptoms or risk factors identified. 19:29 [facility] ED Fall Risk Assessment (Adult) History of falling in the last 3 months, kd3 including since admission No falls in past 3 months (0 pts) Confusion or Disorientation No (0 pts) Intoxicated or Sedated No (0 pts) Impaired Gait Yes (1 pt) Mobility Assist Device Used No (0 pt) Altered Elimination No (0 pt) Score/Fall Risk Level 0 - 2 = Low Risk Maintained a safe environment. Assessment: 19:30 General: Appears ill, slender, Behavior is calm, cooperative. Neuro: Level of kd3 Consciousness is awake, alert, obeys commands, Oriented to person, place, time, situation. Cardiovascular: Patient's skin is warm and dry. Respiratory: Airway is patent Trachea midline Respiratory effort is even, unlabored, Respiratory pattern is regular, symmetrical. GI: Reports diarrhea. 21:18 General: Attempted to collect stool sample. Pt was unable to produce a sample at this kd3 time. . 22:04 General: Bladder scan pre void 326.. kd3 22:40 General: Pt is currently refusing a [place]. Pt has been told to attempt to urinate. Pt kd3 is currently refusing to attempt for a urine sample. . Vital Signs: 18:43 BP 103 / 72; Pulse 101; Resp 19; Temp 97.5(O); Pulse Ox 100% ; ap3 20:34 BP 115 / 80; Pulse 96; Resp 18; Pulse Ox 100% ; cp4 21:40 BP 122 / 74; Pulse 109; Resp 18; Pulse Ox 100% ; cp4 22:30 BP 117 / 87; Pulse 119; Resp 18; Pulse Ox 96% ; cp4 23:46 BP 108 / 81; Pulse 119; Resp 18; Pulse Ox 98% ; cp4 06/20 00:51 BP 96 / 71; Pulse 84; Resp 18; Pulse Ox 100% on R/A; kd3 ED Course: 06/19 18:22 Patient arrived in ED. eb 18:30 Page, Caio, PA-C is PHCP. cp 18:30 Renata Muhammad MD is Attending Physician. cp 18:43 Elyssa Chiang, NEY is Primary Nurse. ap3 18:46 Triage completed. ap3 18:50 XRAY Chest (1 view) In Process Unspecified. EDMS 18:53 EKG done, by ED staff, reviewed by Caio Shrestha PA-C. ap3 18:53 Patient has correct armband on for positive identification. Bed in low position. Call ap3 light in reach. Side rails up X2. Client placed on continuous cardiac and pulse oximetry monitoring. NIBP monitoring applied. pvc monitor on. Pulse ox on. NIBP on. 18:54 Arm band placed on right wrist. ap3 19:24 COVID-19 Ag + Flu A+B Ag Sent. ts3 19:28 Basic Metabolic Panel Sent. kd3 19:28 CBC with Diff Sent. kd3 19:28 LFT's Sent. kd3 19:28 Magnesium Sent. kd3 19:28 NT PRO-BNP Sent. kd3 19:28 PT-INR Sent. kd3 19:28 Troponin HS Sent. kd3 19:28 Lipase Sent. kd3 19:28 Initial lab(s) drawn, by dc, sent to lab. Inserted saline lock: 22 gauge in left kd3 forearm, using aseptic technique. Blood collected. Flushed with 10 mL NS. 19:41 Primary Nurse role handed off by Elyssa Chiang, NEY dr5 19:55 Caio Bello MD is Attending Physician. cp 20:36 CT Chest For PE Angio In Process Unspecified. EDMS 20:36 CT Abd/Pelvis - IV Contrast Only In Process Unspecified. EDMS 20:52 Mesha Ashraf, RN is Primary Nurse. kd3 22:05 Troponin High Sensitivity Sent. kd3 22:41 Fecal Leukocyte Stain Sent. kd3 22:41 CDIFF Sent. kd3 22:41 Ova And Parasites Sent. kd3 22:41 Rotavirus Antigen Sent. kd3 22:41 Stool Culture Sent. kd3 23:07 True Mcdowell MD is Hospitalizing Provider. cp 23:14 Blood Culture Adult (2) Sent. kd3 23:14 Lactate w/ 2H reflex if indic. Sent. kd3 06/20 00:50 No provider procedures requiring assistance completed. Patient admitted, IV remains in kd3 place. 00:51 Provided Education on: admitting . kd3 Administered Medications: 06/19 23:51 Drug: Furosemide IVP 10 mg IVP once; give over 2 minutes Route: IVP; Site: left forearm;kd3 23:51 Drug: LevaQUIN IVPB 750 mg IVPB once Route: IVPB; Site: left antecubital; kd3 Medication: 19:29 VIS not applicable for this client. kd3 Outcome: 23:08 Decision to Hospitalize by Provider. wendy 06/20 00:50 Admitted to Med/surg accompanied by tech, via stretcher, kd3 Condition: stable Discharge instructions given to patient, Instructed on the need for admit, Demonstrated understanding of instructions, 00:52 Patient left the ED. kd3 Signatures: Dispatcher [employer] EDMS Caio Shrestha, Elyssa Keys PA-C, cp, RN RN ap3 Lyn De La Fuente Kyli, RN RN kd3 Peggy Milligan cp4 Francois Thacker, [employer]ING [employer] OPERATOR-C [employer]ATOR-[place]5 Gale Gomez 3
[2025-06-19] MEDS ORDERED: FUROSEMIDE 20 MG/ 2ML VIAL ONE (23:29)
[2025-06-19] MEDS ORDERED: Levofloxacin 750mg IV 750 MG/150 ML BAG IV ONE (23:30)
[2025-06-19] MEDS ORDERED: ACETAMINOPHEN 325 MG TABLET PO PRN (23:42)
--- NOTE | 2025-06-19 23:42 | P.HP ---
Certification for Inpatient Patient admitted to: Observation With expected LOS: <2 Midnights Practitioner: I am a practitioner with admitting privileges, knowledge of patient current condition, hospital course, and medical plan of care. Services: Services provided to patient in accordance with Admission requirements found in Title 42 Section 412.3 of the Code of Federal Regulations Patient History Date of Service: 06/20/25 Reason for admission: Chest Pain and Abdominal Pain History of Present Illness: 54 yrs old Male with past medical history of chronic systolic heart failure with recent echo showing EF of 10% status post AICD placement he is on milrinone drip, diabetes, hypertension, colon cancer brought to ER with Chest discomfort and abdominal pain associated with diarrhea . Patient denies any chest pain. No fever or chills. Associated with multiple episodes of diarrhea. Patient has a history of C. difficile previously. No sick contacts. Denies any nausea vomiting. Patient was assessed in the ER and is admitted for further management. Allergies morphine Allergy (Verified 06/20/25 01:31) Nausea/Vomiting Home medications list reviewed: Yes Home Medications: Atorvastatin Calcium [Lipitor*] 20 mg PO BEDTIME 01/22/25 Buspirone HCl [Buspar*] 5 mg PO BID 01/22/25 Escitalopram Oxalate [Lexapro] 10 mg PO DAILY 01/22/25 Timolol Maleate [Timoptic] 1 gtt OP BID 01/22/25 carvediloL [Coreg*] 3.125 mg PO BIDWM 01/22/25 Aspirin [Aspirin EC 81 MG] 81 mg PO DAILY 30 Days #30 tab 03/16/25 Furosemide [Lasix*] 40 mg PO BIDL 30 Days #60 tab 03/16/25 Nitrofuran Macro [Macrobid*] 100 mg PO BID 7 Days #14 cap 03/16/25 Nutritional Supplement/Fiber [Ensure Plant-Based Protein Vanilla] 330 ml PO BID can 03/16/25 Acidophilus/Bulgaricus [Lactinex Tablet Chewable] 1 each PO DAILY 14 Days #14 tab.chew 03/17/25 Mexiletine HCl [Mexitil] 150 mg PO Q8H 06/20/25 - Past Medical/Surgical History Diabetic: Yes Past Medical History: Reviewed- Non-Contributory -: HTN -: Systolic Diastolic CHF LVEF 20-25% -: Moderate Pulmonary HTN -: DM II -: CKD I with Proteinuria (Dr. Leary/ Don) -: CAD/ [place] -: Colon Cancer Stage II Past Surgical History: Reviewed- Non-Contributory -: cardiac stents placement in January -: Bowel Resection -: Ileostomy reversal - Family History Father -: Hypertension, Diabetes - Social History Smoking Status: Never smoker Alcohol use: No CD- Drugs: No Caffeine use: Yes Review of Systems 10-point ROS is otherwise unremarkable Physical Examination - Vital Signs Temperature: 97.5 F Blood Pressure: 103/72 Pulse: 101 Respirations: 19 Pulse Ox (%): 94 - Physical Exam General: Alert, Oriented x3, Cachectic, Mild distress HEENT: Atraumatic, Normocephalic Neck: Supple, No Thyromegaly Respiratory: Clear to auscultation bilaterally, Normal air movement Cardiovascular: Regular rate/rhythm, Normal S1 S2 Capillary refill: <2 Seconds Gastrointestinal: Soft and benign, W/out hepatosplenomegaly Musculoskeletal: No clubbing, No swelling Integumentary: No rashes Neurological: Other (Alert,Awake, non focal ) Lymphatics: No axilla or inguinal lymphadenopathy - Studies Laboratory Data (last 24 hrs) 06/19/25 06/19/25 06/19/25 19:25 19:25 19:25 WBC 10.70 Hgb 10.1 L Hct 29.0 L Plt Count 166 PT INR Sodium 134 L Potassium 4.0 BUN 84 H Creatinine 1.46 H Glucose 159 H Magnesium 2.2 Total Bilirubin 0.6 AST 60 H ALT 64 H Alkaline Phosphatase 196 H Lipase 19 06/19/25 19:12 WBC Hgb Hct Plt Count PT 14.0 H INR 1.25 Sodium Potassium BUN Creatinine Glucose Magnesium Total Bilirubin AST ALT Alkaline Phosphatase Lipase Microbiology Data (last 24 hrs): 06/19/25 22:35 Stool Rotavirus Antigen - Final Assessment and Plan - Plan Acute gastroenteritis CT findings noted acute enterocolitis Will start on IV Flagyl Patient has a history of C. difficile previously. C. difficile toxin here is negative in the ER Chest Pain Unspecified Will trend cardiac enzymes Will monitor telemetry Continue home medications Cardiology consult Acute on chronic CHF systolic/diastolic Monitor closely on telemetry Started on diuresis X-ray findings noted Oxygen supplementation Will try to wean down oxygen requirement Continue home medications Titrate as needed CKD stage II Monitor renal parameters Electrolytes monitor and replace accordingly Diabetes Insulin sliding scale Accu-Chek before every meal and at bedtime Hyponatremia Electrolytes monitored and replace accordingly History of colon cancer History of cholecystectomy History of C. difficile Continue home medications and titrate as needed GI/DVT prophylaxis Advanced directive full code Discharge Plan: Home Plan to discharge in: 48 Hours - Advance Directives Does patient have a Living Will: No Does patient have a Durable POA for Healthcare: No - Code Status/Comfort Care Code Status: Full Code Time Spent Managing Pts Care (In Minutes): 48
[2025-06-20 00:15] LABS: C.diff Antigen/Toxin Ag neg : Tox neg (NEG : NEG); CDIFF INTERNAL NEG CONTROL White Background (WHITE BKGD); STOOL CONSISTENCY Liquid/Semi-Solid
[2025-06-20 02:01] VITALS: BMI 15.5
[2025-06-20] MEDS: METRONIDAZOLE 500mg IVPB 500 MG/100 ML BAG IV SCH (06:24)
[2025-06-20 07:12] LABS: Absolute Lymphocytes (CBC) 1.0 K/uL (0.7-4.9); Hematocrit 28.5 % (39.6-49.0); Hemoglobin 9.6 g/dL (13.6-17.9); MCH 32.3 pg (27.0-35.0); MCHC 33.9 g/dL (32.0-36.0); MCV 95.5 fL (80-100); MPV 9.2 fL (7.6-11.3); Nucleated RBC Absolute Count 0.0 (0-0); Nucleated Red Blood Cells % 0.0 % (0-0); RBC Red Blood Cell Count 2.98 M/uL (4.33-5.43); White Blood Count 16.70 thou/uL (4.3-10.9)
[2025-06-20 07:48] LABS: ALT/SGPT 53.0 U/L (16-61); AST/SGOT 32.0 U/L (15-37); Albumin 3.3 g/dL (3.4-5.0); Albumin/Globulin Ratio 0.8 (1.1-1.8); Alkaline Phosphatase 176.0 U/L (45-117); Anion Gap 14.9 mEq/L (5.0-15.0); BUN Blood Urea Nitrogen 86.0 mg/dL (7-18); Globulin 4.0 g/dL (2.3-3.5); Glucose Level 157.0 mg/dL (74-106); Potassium 3.9 mEq/L (3.5-5.1)
[2025-06-20] MEDS: PNEUMOCOCCAL VACCINE 0.5 ML IMVAC ONE (09:00)
--- NOTE | 2025-06-20 12:27 | P.PN ---
Date of Service: 06/20/25 Subjective: Resting comfortably in bed. He feels much better than yesterday. Still having some loose stools. Denies any vomiting today. Denies fevers, chills, and rectal bleeding. No active chest pain currently. Physical Examination - Vital Signs Temperature: 97.5 F Blood Pressure: 103/72 Pulse: 101 Respirations: 19 Pulse Ox (%): 94 - Physical Exam General: Alert, Oriented x3, Cachectic, Mild distress HEENT: Atraumatic, Normocephalic Neck: Supple, No Thyromegaly Respiratory: Clear to auscultation bilaterally, Normal air movement Cardiovascular: Regular rate/rhythm, Normal S1 S2 Capillary refill: <2 Seconds Gastrointestinal: Soft and benign, W/out hepatosplenomegaly Musculoskeletal: No clubbing, No swelling Integumentary: No rashes Neurological: Other (Alert,Awake, non focal ) Lymphatics: No axilla or inguinal lymphadenopathy - Studies Laboratory Data (last 24 hrs) 06/19/25 06/19/25 06/19/25 19:25 19:25 19:25 WBC 10.70 Hgb 10.1 L Hct 29.0 L Plt Count 166 PT INR Sodium 134 L Potassium 4.0 BUN 84 H Creatinine 1.46 H Glucose 159 H Magnesium 2.2 Total Bilirubin 0.6 AST 60 H ALT 64 H Alkaline Phosphatase 196 H Lipase 19 06/19/25 19:12 WBC Hgb Hct Plt Count PT 14.0 H INR 1.25 Sodium Potassium BUN Creatinine Glucose Magnesium Total Bilirubin AST ALT Alkaline Phosphatase Lipase Microbiology Data (last 24 hrs): 06/19/25 22:35 Stool Rotavirus Antigen - Final Assessment and Plan - Plan Acute gastroenteritis Chest Pain Unspecified Acute on chronic CHF systolic/diastolic CKD stage II Diabetes Hyponatremia History of colon cancer History of cholecystectomy History of C. difficile 06/20 Appears euvolemic after diarrhea and vomiting Low rate saline for 12 hours Negative C. difficile Cardiac enzymes flat Cardiology consulted Will monitor telemetry Chest x-ray with no overt pulmonary edema on 06/19 Now breathing normally on room air Continue home medications Titrate as needed Monitor renal parameters Electrolytes monitor and replace accordingly Insulin sliding scale Accu-Chek before every meal and at bedtime Electrolytes monitored and replace accordingly Continue home medications and titrate as needed GI/DVT prophylaxis Advanced directive full code Discharge Plan: Home Plan to discharge in: 48 Hours - Advance Directives Does patient have a Living Will: No Does patient have a Durable POA for Healthcare: No - Code Status/Comfort Care Code Status: Full Code Time spent on the encounter, including patient evaluation, history taking, physical exam, medical decision making, coordination of care, and documentation, was 35 minutes. Time includes direct [id number] interaction with the patient and indirect time spent reviewing records, ordering tests, and discussing the care plan.
[2025-06-20] MEDS ORDERED: DEXTROSE IV SCH (12:30)
[2025-06-20] MEDS ORDERED: MILRINONE IV SCH (12:30)
[2025-06-20] MEDS ORDERED: [UNRECOGNIZED DRUG - OTHER] IV SCH (12:30)
[2025-06-20] MEDS ORDERED: NA CHLORIDE 0.9% 1,000 ML IV SCH ×2 (13:00)
[2025-06-20] MEDS: INSULIN REGULAR (HUMAN) 100 UNIT/ML SQ SCH (16:30)
[2025-06-20] MEDS: TIMOLOL MALEATE 0.5% OPTH 5 ML BTL EACH EYE SCH (21:00)
[2025-06-20] MEDS: NYSTATIN PWDR 100000 UNIT/GM TOP SCH (21:00)
[2025-06-20] MEDS: ATORVASTATIN 20 MG TAB PO SCH (21:23)
[2025-06-20] MEDS: PANTOPRAZOLE 40MG TABLET PO SCH (21:23)
[2025-06-21] MEDS: ASPIRIN EC 81 MG TAB PO SCH (08:20)
[2025-06-21] MEDS: ESCITALOPRAM OXALATE 10 MG TABLET PO SCH (08:21)
[2025-06-21 10:50] LABS: Absolute Lymphocytes (CBC) 1.0 K/uL (0.7-4.9); Hematocrit 27.3 % (39.6-49.0); Hemoglobin 9.5 g/dL (13.6-17.9); MCH 33.1 pg (27.0-35.0); MCHC 34.9 g/dL (32.0-36.0); MCV 94.9 fL (80-100); MPV 9.1 fL (7.6-11.3); Nucleated RBC Absolute Count 0.0 (0-0); Nucleated Red Blood Cells % 0.0 % (0-0); RBC Red Blood Cell Count 2.88 M/uL (4.33-5.43); White Blood Count 8.70 thou/uL (4.3-10.9)
[2025-06-21 11:00] LABS: ALT/SGPT 39 U/L (16-61); Albumin 3.2 g/dL (3.4-5.0); Albumin/Globulin Ratio 0.8 (1.1-1.8); Alkaline Phosphatase 160 U/L (45-117); Anion Gap 13.6 mEq/L (5.0-15.0); BUN Blood Urea Nitrogen 86 mg/dL (7-18); Globulin 4.1 g/dL (2.3-3.5); Glucose Level 163 mg/dL (74-106); Potassium 3.6 mEq/L (3.5-5.1)
[2025-06-21 11:01] LABS: AST/SGOT < 10 U/L (15-37)
[2025-06-21] MEDS: ONDANSETRON 4 MG/2 ML VIAL IV PRN (11:33)
--- NOTE | 2025-06-21 12:45 | P.PN ---
Date of Service: 06/21/25 Subjective: Endorses nausea this morning. His diarrhea has improved. He also endorses some chest pain. Denies shortness of breath and fever Physical Examination - Vital Signs Temperature: 97.5 F Blood Pressure: 103/72 Pulse: 101 Respirations: 19 Pulse Ox (%): 94 - Physical Exam General: Alert, Oriented x3, Cachectic, Mild distress HEENT: Atraumatic, Normocephalic Neck: Supple, No Thyromegaly Respiratory: Clear to auscultation bilaterally, Normal air movement Cardiovascular: Regular rate/rhythm, Normal S1 S2 Capillary refill: <2 Seconds Gastrointestinal: Soft and benign, W/out hepatosplenomegaly Musculoskeletal: No clubbing, No swelling Integumentary: No rashes Neurological: Other (Alert,Awake, non focal ) Lymphatics: No axilla or inguinal lymphadenopathy - Studies Laboratory Data (last 24 hrs) 06/19/25 06/19/25 06/19/25 19:25 19:25 19:25 WBC 10.70 Hgb 10.1 L Hct 29.0 L Plt Count 166 PT INR Sodium 134 L Potassium 4.0 BUN 84 H Creatinine 1.46 H Glucose 159 H Magnesium 2.2 Total Bilirubin 0.6 AST 60 H ALT 64 H Alkaline Phosphatase 196 H Lipase 19 06/19/25 19:12 WBC Hgb Hct Plt Count PT 14.0 H INR 1.25 Sodium Potassium BUN Creatinine Glucose Magnesium Total Bilirubin AST ALT Alkaline Phosphatase Lipase Microbiology Data (last 24 hrs): 06/19/25 22:35 Stool Rotavirus Antigen - Final Assessment and Plan - Plan Acute gastroenteritis Chest Pain Unspecified Acute on chronic CHF systolic/diastolic Hyponatremia CKD stage II Uncontrolled type 2 diabetes mellitus with hyperglycemia Hyponatremia History of colon cancer History of cholecystectomy History of C. difficile 06/20 Appears euvolemic after diarrhea and vomiting Low rate saline for 12 hours Negative C. difficile Cardiac enzymes flat Cardiology consulted Will monitor telemetry Chest x-ray with no overt pulmonary edema on 06/19 Now breathing normally on room air Continue home medications Titrate as needed Monitor renal parameters Electrolytes monitor and replace accordingly Insulin sliding scale Accu-Chek before every meal and at bedtime Electrolytes monitored and replace accordingly Continue home medications and titrate as needed 06/21 Continue aspirin, statin await cardiology recommendations, serial troponins flat Nausea and vomiting improved Advance diet as tolerated Elevated procalcitonin, add Rocephin and continue Flagyl Continue Lexapro GI/DVT prophylaxis Advanced directive full code Discharge Plan: Home Plan to discharge in: 48 Hours - Advance Directives Does patient have a Living Will: No Does patient have a Durable POA for Healthcare: No - Code Status/Comfort Care Code Status: Full Code Time spent on the encounter, including patient evaluation, history taking, physical exam, medical decision making, coordination of care, and documentation, was 35 minutes. Time includes direct [id number] interaction with the patient and indirect time spent reviewing records, ordering tests, and discussing the care plan.
--- NOTE | 2025-06-21 12:46 | P.CNS ---
Date of Consult: 06/21/25 Chief Complaint: Chest Pain and Abdominal Pain History of Present Illness: Patient with PMH of advanced Combined HF on Milirnone drip, presented with abdominal pain and chest pain, patient denies any other cardiac symptoms. Allergies morphine Allergy (Verified 06/20/25 01:31) Nausea/Vomiting Home medications list reviewed: Yes Home Medications: Atorvastatin Calcium [Lipitor*] 20 mg PO BEDTIME 01/22/25 Escitalopram Oxalate [Lexapro] 10 mg PO DAILY 01/22/25 Timolol Maleate [Timoptic] 1 gtt OP BEDTIME 01/22/25 Aspirin [Aspirin EC 81 MG] 81 mg PO DAILY 30 Days #30 tab 03/16/25 Bumetanide [Bumex*] 1 tab PO DAILY 06/20/25 Magnesium Oxide [Mag 0X Tab] 400 mg PO DAILY 06/20/25 Mexiletine HCl [Mexitil] 150 mg PO Q8H 06/20/25 Milrinone Lact/D5w [Milrinone 20 MG/100 ML IVPB (PREMIX)*] 3.7 ml IV SEECOM 06/20/25 Nystatin Powder [Mycostatin (Powder)*] 1 appl TOP BID 06/20/25 Pantoprazole [Protonix Tab*] 1 tab PO BID 06/20/25 Spironolactone [Aldactone] 12.5 mg PO DAILY 06/20/25 - Past Medical/Surgical History Diabetic: Yes -: HTN -: Systolic Diastolic CHF LVEF 20-25% -: Moderate Pulmonary HTN -: DM II -: CKD I with Proteinuria (Dr. Leary/ Don) -: CAD/ [place] -: Colon Cancer Stage II -: cardiac stents placement in January -: Bowel Resection -: Ileostomy reversal - Family History Father Medical History: Hypertension, Diabetes - Social History Smoking Status: Unknown if ever smoked Alcohol use: No CD- Drugs: No Caffeine use: Yes Place of Residence: Home Review of Systems 10-point ROS is otherwise unremarkable Physical Examination Temp Pulse Resp BP Pulse Ox 97.6 F 105 H 16 100/60 97 06/21/25 11:55 06/21/25 11:55 06/21/25 11:55 06/21/25 11:55 06/21/25 11:55 General: Alert, In no apparent distress HEENT: Atraumatic, PERRLA, Mucous membr. moist/pink, EOMI, Sclerae nonicteric Neck: Supple, 2+ carotid pulse no bruit, No LAD, Without JVD or thyroid abnormality Respiratory: Clear to auscultation bilaterally, Normal air movement Cardiovascular: Regular rate/rhythm, Normal S1 S2 Gastrointestinal: Normal bowel sounds, No tenderness Musculoskeletal: No tenderness Integumentary: No rashes Neurological: Normal gait, Normal speech, Normal tone, Normal affect Lymphatics: No axilla or inguinal lymphadenopathy Laboratory Data (last 24 hrs) 06/20/25 06/20/25 06/20/25 10:33 10:33 06:36 WBC 8.70 16.70 H Hgb 9.5 L 9.6 L Hct 27.3 L 28.5 L Plt Count 155 158 Sodium 133 L Potassium 3.6 BUN 86 H Creatinine 1.51 H Glucose 163 H Total Bilirubin 0.7 AST < 10 L ALT 39 Alkaline Phosphatase 160 H - Problems (1) Chronic combined systolic and diastolic heart failure Current Visit: Yes Status: Acute Plan: Patient with end stage HF on Milrinone drip continue home dose Buemex continue Aldactone 12.5 mg daily continue Milrinone drip at current rate continue to monitor on tele (2) Chest pain Current Visit: Yes Status: Acute Plan: patient with advanced heart failure and on milrinone drip continue to trend cardiac enzymes patient for sure had extensive ischemia evaluation by his program research specialist before placing on inoptropes no further cardiac work up needed patient to continue to follow up with cardiology in [facility]
[2025-06-21] MEDS ORDERED: MILRINONE IV PRN (15:08)
[2025-06-21] MEDS ORDERED: DEXTROSE IV PRN (15:08)
[2025-06-22 06:17] LABS: Absolute Lymphocytes (CBC) 1.0 K/uL (0.7-4.9); Hematocrit 25.3 % (39.6-49.0); Hemoglobin 9.1 g/dL (13.6-17.9); MCH 33.3 pg (27.0-35.0); MCHC 35.8 g/dL (32.0-36.0); MCV 93.0 fL (80-100); MPV 8.4 fL (7.6-11.3); Nucleated RBC Absolute Count 0.0 (0-0); Nucleated Red Blood Cells % 0.1 % (0-0); RBC Red Blood Cell Count 2.72 M/uL (4.33-5.43); White Blood Count 6.30 thou/uL (4.3-10.9)
[2025-06-22 06:36] LABS: ALT/SGPT 32 U/L (16-61); Albumin 3.2 g/dL (3.4-5.0); Albumin/Globulin Ratio 0.8 (1.1-1.8); Alkaline Phosphatase 149 U/L (45-117); Anion Gap 15.3 mEq/L (5.0-15.0); BUN Blood Urea Nitrogen 89 mg/dL (7-18); Globulin 4.0 g/dL (2.3-3.5); Glucose Level 138 mg/dL (74-106); Potassium 3.3 mEq/L (3.5-5.1)
[2025-06-22 06:41] LABS: AST/SGOT < 10 U/L (15-37)
[2025-06-22] MEDS: CEFTRIAXONE 1,000 MG in NA CHLORIDE 0.9% 50 ML IVPB SCH (08:34)
[2025-06-22] MEDS: POTASSIUM CL SA 10 MEQ TAB PO ONE (08:35)
[2025-06-22] MEDS ORDERED: POTASSIUM CL SA 10 MEQ TAB PO ONE (09:00)
[2025-06-22 09:51] VITALS: BP 104/67; TEMP 97.6
[2025-06-22 09:58] VITALS: O2SAT 97
--- NOTE | 2025-06-22 10:14 | P.DS ---
Admission Date: 06/21/25 Discharge Date: 06/22/25 Disposition: ROUTINE DISCHARGE Discharge Condition: FAIR Reason for Admission: Chest Pain and Abdominal Pain Brief History of Present Illness: 54 yrs old Male with past medical history of chronic systolic heart failure with recent echo showing EF of 10% status post AICD placement he is on milrinone drip, diabetes, hypertension, colon cancer brought to ER with Chest discomfort and abdominal pain associated with diarrhea . Patient denies any chest pain. No fever or chills. Associated with multiple episodes of diarrhea. Patient has a history of C. difficile previously. No sick contacts. Denies any nausea vomiting. Patient was assessed in the ER and is admitted for further management. Upon admission he was started on IV antibiotics. His clinical condition improved over the course of his stay. He is no longer having loose stools. He is now tolerating a diet. He was seen by cardiology during his admission. His Bumex, Aldactone, were continued. Milrinone was not available at our pharmacy. 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 He is medically optimized for discharge Hospital Course: Physical Examination - Vital Signs Temperature: 97.5 F Blood Pressure: 103/72 Pulse: 101 Respirations: 19 Pulse Ox (%): 94 - Physical Exam General: Alert, Oriented x3, Cachectic, Mild distress HEENT: Atraumatic, Normocephalic Neck: Supple, No Thyromegaly Respiratory: Clear to auscultation bilaterally, Normal air movement Cardiovascular: Regular rate/rhythm, Normal S1 S2 Capillary refill: <2 Seconds Gastrointestinal: Soft and benign, W/out hepatosplenomegaly Musculoskeletal: No clubbing, No swelling Integumentary: No rashes Neurological: Other (Alert,Awake, non focal ) Lymphatics: No axilla or inguinal lymphadenopathy - Studies Laboratory Data (last 24 hrs) 06/19/25 06/19/25 06/19/25 19:25 19:25 19:25 WBC 10.70 Hgb 10.1 L Hct 29.0 L Plt Count 166 PT INR Sodium 134 L Potassium 4.0 BUN 84 H Creatinine 1.46 H Glucose 159 H Magnesium 2.2 Total Bilirubin 0.6 AST 60 H ALT 64 H Alkaline Phosphatase 196 H Lipase 19 06/19/25 19:12 WBC Hgb Hct Plt Count PT 14.0 H INR 1.25 Sodium Potassium BUN Creatinine Glucose Magnesium Total Bilirubin AST ALT Alkaline Phosphatase Lipase Microbiology Data (last 24 hrs): 06/19/25 22:35 Stool Rotavirus Antigen - Final Assessment and Plan - Plan Acute gastroenteritis Chest Pain Unspecified Acute on chronic CHF systolic/diastolic Hyponatremia CKD stage II Uncontrolled type 2 diabetes mellitus with hyperglycemia Hyponatremia History of colon cancer History of cholecystectomy History of C. difficile 06/20 Appears euvolemic after diarrhea and vomiting Low rate saline for 12 hours Negative C. difficile Cardiac enzymes flat Cardiology consulted Will monitor telemetry Chest x-ray with no overt pulmonary edema on 06/19 Now breathing normally on room air Continue home medications Titrate as needed Monitor renal parameters Electrolytes monitor and replace accordingly Insulin sliding scale Accu-Chek before every meal and at bedtime Electrolytes monitored and replace accordingly Continue home medications and titrate as needed 06/21 Continue aspirin, statin await cardiology recommendations, serial troponins flat Nausea and vomiting improved Advance diet as tolerated Elevated procalcitonin, add Rocephin and continue Flagyl Continue Lexapro GI/DVT prophylaxis Advanced directive full code Discharge Plan: Home Plan to discharge in: 48 Hours - Advance Directives Does patient have a Living Will: No Does patient have a Durable POA for Healthcare: No - Code Status/Comfort Care Code Status: Full Code Time spent on the encounter, including patient evaluation, history taking, physical exam, medical decision making, coordination of care, and documentation, was 35 minutes. Time includes direct eule-bu-ifle interaction with the patient and indirect time spent reviewing records, ordering tests, and discussing the care plan. Vital Signs/Physical Exam: Temp Pulse Resp BP Pulse Ox 97.6 F 105 H 16 104/67 99 06/22/25 08:00 06/22/25 08:00 06/22/25 08:00 06/22/25 08:00 06/22/25 08:00 Laboratory Data at Discharge: WBC 6.30 thou/uL (4.3-10.9) 06/22/25 06:05 Hgb 9.1 g/dL (13.6-17.9) L 06/22/25 06:05 Hct 25.3 % (39.6-49.0) L 06/22/25 06:05 Plt Count 162 thou/uL (152-406) 06/22/25 06:05 PT 14.0 SECONDS (10-13.0) H 06/19/25 19:12 INR 1.25 06/19/25 19:12 Sodium 134 mEq/L (136-145) L 06/22/25 06:05 Potassium 3.3 mEq/L (3.5-5.1) L 06/22/25 06:05 BUN 89 mg/dL (7-18) H 06/22/25 06:05 Creatinine 1.52 mg/dL (0.70-1.30) H 06/22/25 06:05 Glucose 138 mg/dL (74-106) H 06/22/25 06:05 Magnesium 2.2 mg/dL (1.6-2.4) 06/19/25 19:25 Total Bilirubin 0.6 mg/dL (0.2-1.0) 06/22/25 06:05 AST < 10 U/L (15-37) L 06/22/25 06:05 ALT 32 U/L (16-61) 06/22/25 06:05 Alkaline Phosphatase 149 U/L (45-117) H 06/22/25 06:05 Lipase 19 U/L (13-75) 06/19/25 19:25 Home Medications: Atorvastatin Calcium [Lipitor*] 20 mg PO BEDTIME 01/22/25 Escitalopram Oxalate [Lexapro] 10 mg PO DAILY 01/22/25 Timolol Maleate [Timoptic] 1 gtt OP BEDTIME 01/22/25 Aspirin [Aspirin EC 81 MG] 81 mg PO DAILY 30 Days #30 tab 03/16/25 Bumetanide [Bumex*] 1 tab PO DAILY 06/20/25 Magnesium Oxide [Mag 0X*] 400 mg PO DAILY 06/20/25 Mexiletine HCl [Mexitil*] 150 mg PO Q8H 06/20/25 Milrinone Lact/D5w [Milrinone 20 MG/100 ML IVPB (PREMIX)*] 3.7 ml IV SEECOM 06/20/25 Nystatin Powder [Mycostatin (Powder)*] 1 appl TOP BID 06/20/25 Pantoprazole [Protonix Tab*] 1 tab PO BID 06/20/25 Spironolactone [Aldactone*] 12.5 mg PO DAILY 06/20/25 Ondansetron [Zofran] 4 mg PO Q6H PRN 7 Days #28 tab 06/22/25 New Medications: Ondansetron [Zofran] 4 mg PO Q6H PRN 7 Days #28 tab PRN Reason: Nausea / Vomiting Followup: NONE,NONE [Primary Care Provider] -
== END 2025-06-22 12:06 | disposition home or self-care (01) | DRG 391 ==
LOC: ER 18:16 → ERHOLD 23:42 → 4TH 06-20 00:14 → OBSVTOIN 06-21 11:47
PROVIDERS: ADMIT Family Medicine; ATTEND Family Medicine
DX: K52.9 Noninfective gastroenteritis and colitis, unspecified (principal); I50.43 Acute on chronic combined systolic (congestive) and diastolic (congestive) heart failure; J18.9 Pneumonia, unspecified organism; I13.0 Hypertensive heart and chronic kidney disease with heart failure and stage 1 through stage 4 chronic kidney disease, or unspecified chronic kidney disease; E87.1 Hypo-osmolality and hyponatremia; E11.22 Type 2 diabetes mellitus with diabetic chronic kidney disease; N18.2 Chronic kidney disease, stage 2 (mild); Z85.038 Personal history of other malignant neoplasm of large intestine; Z90.49 Acquired absence of other specified parts of digestive tract; Z88.5 Allergy status to narcotic agent; Z95.810 Presence of automatic (implantable) cardiac defibrillator; Z11.52 Encounter for screening for COVID-19; Z23 Encounter for immunization; Z79.899 Other long term (current) drug therapy; Z79.82 Long term (current) use of aspirin; I25.10 Atherosclerotic heart disease of native coronary artery without angina pectoris; Z95.5 Presence of coronary angioplasty implant and graft; Z93.2 Ileostomy status; Z98.890 Other specified postprocedural states; E11.65 Type 2 diabetes mellitus with hyperglycemia
CPT/HCPCS: 36415; 71045; 71275; 74177; 80048; 80053; 80076; 82947; 83605; 83690; 83735; 83880; 84145; 84484; 85025; 85610; 87040; 87045; 87046; 87177; 87209; 87324; 87425; 87428; 89055; 93005; 99285; G0378; J0696; J1815; J1938; J2405; Q9967

== ENCOUNTER 2025-07-30 17:56 | Inpatient (IN) | payer OTHER ==
[2025-07-30 18:36] LABS: Absolute Lymphocytes (CBC) 1.0 K/uL (0.7-4.9); Hematocrit 37.5 % (39.6-49.0); Hemoglobin 12.0 g/dL (13.6-17.9); MCH 30.6 pg (27.0-35.0); MCHC 32.1 g/dL (32.0-36.0); MCV 95.3 fL (80-100); MPV 9.4 fL (7.6-11.3); Nucleated RBC Absolute Count 0.0 (0-0); Nucleated Red Blood Cells % 0.2 % (0-0); RBC Red Blood Cell Count 3.93 M/uL (4.33-5.43); White Blood Count 8.60 thou/uL (4.3-10.9)
[2025-07-30 18:53] LABS: PT Prothrombin Time 14.5 SECONDS (10-13.0); PTT, Activated Partial Thromb 32.5 SECONDS (27.2-37.4); Protime INR 1.29
[2025-07-30 18:55] LABS: ALT/SGPT 18.0 U/L (16-61); AST/SGOT 11.0 U/L (15-37); Albumin 3.2 g/dL (3.4-5.0); Albumin/Globulin Ratio 0.8 (1.1-1.8); Alkaline Phosphatase 200.0 U/L (45-117); Anion Gap 12.1 mEq/L (5.0-15.0); BUN Blood Urea Nitrogen 89.0 mg/dL (7-18); Globulin 4.2 g/dL (2.3-3.5); Glucose Level 222.0 mg/dL (74-106); Potassium 5.1 mEq/L (3.5-5.1); Troponin High Sensitivity 21.6 pg/mL (<58.9)
--- NOTE | 2025-07-30 18:56 | RAD REPORT ---
EXAMINATION: ONE VIEW CHEST XR CLINICAL INDICATION: DYSPNEA TECHNIQUE: Frontal chest projection is submitted. Examination is limited by patient positioning and t echnique. COMPARISON: 07/15/2025 FINDINGS: Moderate bilateral pulmonary opacities, greater on the right likely pulmonary edema. The heart is mod erately enlarged. Small to moderate pleural effusions bilaterally. Dual lead pacer/fibrillator device. Right-sided PICC line is tip in SVC. IMPRESSION: Moderate CHF versus volume overload pattern.
[2025-07-30] MEDS ORDERED: FUROSEMIDE 40 MG/4 ML VIAL ONE (22:22)
--- NOTE | 2025-07-30 22:37 | EDPHYS ---
Physician Documentation [facility] Name: Royce Farr Age: 54 yrs Sex: Male : 1970 Arrival Date: 07/30/2025 Time: 17:56 Bed 2 Private MD: ED Physician Ross Thornton HPI: 07/30 18:33 This 54 yrs old Male presents to ER via EMS with complaints of Shortness Of Breath. rn 18:33 Patient reports shortness of breath over the last few days, has severe congestive heart rn failure, on milrinone drip at home. Reports increased swelling of lower extremities malaise and fatigue.. Historical: - Allergies: 18:30 Morphine; mb9 - Home Meds: 18:30 milrinone in 5 % dextrose intravenous 60mg/300 ml [Active]; mb9 - PMHx: 18:30 colon cancer (colon cancer); Congestive heart failure; diabetes mellitus; Hypertensive mb9 disorder; - PSHx: 18:30 Cholecystectomy; Defibrilator; PICC RUE; mb9 - Immunization history:: Adult Immunizations up to date. - Infectious Disease History:: Denies. - Social history:: Smoking status: Patient denies any tobacco usage or history of. - Family history:: not pertinent. - Hospitalizations: : No recent hospitalization is reported. ROS: 18:33 Constitutional: Negative for fever, chills, and weight loss, Cardiovascular: Positive rn for edema Respiratory: Positive for shortness of breath MS/Extremity: Positive for lower extremity edema Neuro: Positive for generalized weakness and malaise Exam: 18:33 Constitutional: Malnourished male with tachypnea, pale Head/Face: Normocephalic, rn atraumatic. Cardiovascular: Tachycardic, regular Respiratory: Mild to moderate tachypnea MS/ Extremity: 3+ pitting edema up to thighs bilaterally Neuro: Awake and alert, GCS 15 Vital Signs: 18:05 BP 94 / 76; Pulse 118; Resp 28; Pulse Ox 96% on 6 lpm NC; Weight 22.18 kg; Height 5 ft. mb9 5 in. ; Pain 0/10; 18:20 BP 106 / 69; Pulse 116; Resp 26; Pulse Ox 95% ; mb9 18:25 BP 100 / 71; Pulse 115; Resp 28; Pulse Ox 95% 6 lpm ; mb9 18:30 BP 104 / 65; Pulse 114; Resp 30; Temp 98.8; Pulse Ox 94% on R/A; FiO2 6 %; mb9 18:35 BP 99 / 55; Pulse 112; Resp 26; Pulse Ox 98% ; mb9 18:45 BP 106 / 73; Pulse 111; Resp 28; Pulse Ox 99% on BiPAP; mb9 19:04 BP 104 / 79; Pulse 111; Resp 20; Pulse Ox 100% ; nh2 20:00 BP 106 / 78; Pulse 111; Resp 18; Pulse Ox 98% ; kb4 21:00 BP 104 / 76; Pulse 110; Resp 18; Pulse Ox 99% on R/A; kb4 22:17 BP 106 / 80; Pulse 110; Resp 18; Pulse Ox 96% ; kb4 18:05 Body Mass Index 8.14 (22.18 kg, 165.1 cm) mb9 18:05 Pain Scale: Adult mb9 MDM: 18:08 Medical Screening Exam initiated rn 18:54 Transition of care: After a detail discussion of the patient's case, care is rn transferred to Ross Thornton DO. 21:35 ED course: I paged electrical linesworker Dr. Johnson to discuss if that would be appropriate to tt7 keep the patient at our facility or transfer to [facility]. ED course: I took over care of this patient at shift change at [address] Luna. This is a 54-year-old male with very severe congestive heart failure with EF of approximately 8% dependent on continuous milrinone infusion who presents with hypoxic respiratory failure requiring BiPAP. Workup demonstrates no leukocytosis, mild anemia with hemoglobin of 12, platelets normal, patient has significantly elevated BNP of 22,000, chemistry demonstrates sodium of 135, bicarb of 19, hyperglycemia with glucose of 222, elevated creatinine of 1.81 with a BUN of 89, lactate of 1.4, troponin within normal limits, I independently interpreted the patient's chest x-ray. On my interpretation, chest x-ray demonstrates moderate bilateral pulmonary opacities with moderately enlarged heart border, small pleural effusions bilaterally, dual-lead AICD and right sided PICC line present. The patient has received specialty care with cardiology at [facility], had prolonged hospitalization there recently, unfortunately patient is not currently a candidate for heart transplantation given his history of colon cancer which has only been in remission for 2.5 years, I discussed the results of the patient's emergency department evaluation with the patient and his spouse, I discussed all the laboratory studies and radiologic findings, advised the patient that transferring to [facility] will provide him with the continuity of care with his cardiac nurse specialist and that facility likely has the best resources to take care of his condition, given the significance of his congestive heart failure and that this is likely the end-stage of his chronic disease I also offered to discussed the case with the hospitalist here at our facility because likely the only management we could offer this patient here is continued BiPAP support and diuresis, patient decided that he did not want to be transferred and would like to stay at our facility if possible, I was able to speak with electrical linesworker Dr. Miller who is familiar with the patient and has seen him at our facility in the past, he stated that we could keep the patient at our facility and he would consult on the case, we discussed the patient's presentation, laboratory studies, vital signs, and ED interventions, he recommended that we initiate the patient on a Lasix drip at 5 mg/h and continue BiPAP support. I discussed the case with hospitalist Dr. Mcdowell regarding the patient's presentation, laboratory studies, radiographic findings, and Dr. Miller's recommendations, he accepts the patient for ICU admission. This patient has a medical condition that impairs one or more vital organ systems and has a high probability of imminent or life threatening deterioration in their condition. Management of this patient required my highest level of care and included frequent personal assessment and intervention. I personally spent 35 minutes of critical care time, exclusive of time spent on separately billable procedures, in the evaluation and management of this patient's condition. This critical care time included independently obtaining a history, examining the patient, pulse oximetry, cardiac telemetry monitoring, ordering and review of studies laboratory and imaging studies, development of a management plan, evaluation of patient's response to treatment, frequent reassessment, and discussion with other healthcare providers. 07/31 01:34 Data reviewed: vital signs, nurses notes, lab test result(s), radiologic studies. tt7 07/30 18:09 Order name: BNP; Complete Time: 18:57 rn 07/30 18:09 Order name: Blood Culture Adult (2) rn 07/30 18:09 Order name: CBC with Diff; Complete Time: 18:57 rn 07/30 18:09 Order name: CMP; Complete Time: 18:57 rn 07/30 18:09 Order name: Lactate w/ 2H reflex if indic.; Complete Time: 19:02 rn 07/30 18:09 Order name: Protime (+inr); Complete Time: 18:57 rn 07/30 18:09 Order name: Ptt, Activated; Complete Time: 18:57 rn 07/30 18:09 Order name: Troponin HS; Complete Time: 18:57 rn 07/30 22:40 Order name: CBC with Automated Diff EDMS 07/30 22:40 Order name: CBC with Automated Diff EDMS 07/30 22:40 Order name: Comprehensive Metabolic Panel EDMS 07/30 22:40 Order name: Comprehensive Metabolic Panel EDMS 07/30 22:40 Order name: Troponin High Sensitivity EDMS 07/30 22:40 Order name: Troponin High Sensitivity; Complete Time: 03:05 EDMS 07/30 18:09 Order name: Chest Single View XRAY; Complete Time: 18:57 rn 07/30 18:09 Order name: Accucheck; Complete Time: 19:08 rn 07/30 18:09 Order name: Cardiac monitoring; Complete Time: 18:39 rn 07/30 18:09 Order name: EKG - Nurse/Tech; Complete Time: 18:39 rn 07/30 18:09 Order name: IV Saline Lock - Large Bore; Complete Time: 18:39 rn 07/30 18:09 Order name: Labs collected and sent; Complete Time: 18:39 rn 07/30 18:09 Order name: O2 Per Protocol; Complete Time: 18:39 rn 07/30 18:09 Order name: O2 Sat Monitoring; Complete Time: 18:39 rn 07/30 18:09 Order name: Vital Signs; Complete Time: 18:39 rn Administered Medications: 07/30 18:15 Drug: Milrinone IV 0.25 mcg/kg/min IV at calculated rate continuous Route: IV; Rate: mb9 calculated rate; Site: PICC; 23:21 Follow up: Response: No adverse reaction; IV Status: Infusion continued upon admission al5 22:39 Drug: Furosemide IVP 40 mg IVP once; give over 2 minutes Route: IVP; Site: left forearm;al5 23:21 Follow up: Response: No adverse reaction al5 22:39 Drug: Droperidol IVP 1.25 mg IVP once Route: IVP; Site: left forearm; al5 23:21 Follow up: Response: No adverse reaction; Anxiety decreased al5 Disposition: 07/31 01:35 Co-signature as Attending Physician, Ross Thornton DO. tt7 Disposition Summary: 07/30/25 22:36 Hospitalization Ordered Notes: Hospitalization Status: Inpatient Admission tt7 Provider: True Mcdowell tt7 Location: Intensive Care Unit tt7 Condition: Serious tt7 Problem: an acute exacerbation tt7 Symptoms: have improved tt7 Bed/Room Type: Standard tt7 Room Assignment: 4-(07/31/25 01:07) Diagnosis - Acute respiratory failure with hypoxia tt7 - Acute pulmonary edema tt7 - Acute on chronic systolic (congestive) heart failure tt7 Forms: - Medication Reconciliation Form tt7 - SBAR form tt7 - Leadership Thank You Letter tt7 Signatures: Dispatcher [employer] EDCharline Hernandez RN RN kl Nieto, Roman, MD MD rn Wilkerson, Mary Beth, RN RN mb9 Elyssa Fuller RN RN al5 Ross Thornton DO DO tt7 Corrections: (The following items were deleted from the chart) 07/30 18:10 18:10 PROBNP+C.LAB.BRZ ordered. EDMS EDMS 18:10 18:10 BLOOD CULTURE*+BA.LAB.BRZ ordered. EDMS EDMS 18:10 18:10 CBC+H.LAB.BRZ ordered. EDTN EDMS 18:10 18:10 COMPREHENSIVE METABOLIC PANEL+C.LAB.BRZ ordered. EDMS EDMS 18:10 18:10 LACTATE+C.LAB.BRZ ordered. EDMS EDMS 18:10 18:10 PROTIME (+INR)+COAG.LAB.BRZ ordered. EDMS EDMS 18:10 18:10 PTT, ACTIVATED+COAG.LAB.BRZ ordered. EDMS EDMS 18:10 18:10 Troponin High Sensitivity+C.LAB.BRZ ordered. EDMS EDMS 18:10 18:10 Chest Single View+RAD.RAD.BRZ ordered. EDTN EDMS 18:34 18:34 BiPap ([employer] Only)+RC.RAD.BRZ ordered. EDMS EDMS 22:40 18:09 Krystyna ordered. rn al5 07/31 01:07 10 22:36 tt7 kl 07/31 01:27 07/30 21:35 ED course: I took over care of this patient at shift change at [address] Luna.. tt7 07/31 01:35 10 21:35 ED course: I took over care of this patient at shift change at [address] Luna. This is a 54-year-old male with very severe congestive heart failure with EF of approximately 8% dependent on continuous milrinone infusion who presents with hypoxic respiratory failure requiring BiPAP. tt7
--- NOTE | 2025-07-30 22:37 | ER ---
Nurse's Notes [facility] Name: Royce Farr Age: 54 yrs Sex: Male : 1970 Arrival Date: 07/30/2025 Time: 17:56 Bed 2 Private MD: Diagnosis: Acute respiratory failure with hypoxia;Acute pulmonary edema;Acute on chronic systolic (congestive) heart failure Presentation: 07/30 18:05 Acuity: SANDRO 2 mb9 18:05 Chief complaint: EMS states: "toned out for SOB/CP that's been occurring for 3-4 days. mb9 Pt worse today. On arrival pt respirations 38 and placed on 15 L/min nonrebreather with no relief. Pt HR in 40s and gave 1 mg of Atropine. Pt on continuous Milrinone 0.25 mcg/kg/min.". Coronavirus screen: Vaccine status: Patient reports being unvaccinated. Ebola Screen: No symptoms or risks identified at this time. Initial Sepsis Screen: Does the patient meet any 2 criteria? No. Patient's initial sepsis screen is negative. Does the patient have a suspected source of infection? No. Patient's initial sepsis screen is negative. Risk Assessment: Do you want to hurt yourself or someone else? Patient reports no desire to harm self or others. Onset of symptoms was July 30, 2025. 18:05 Method Of Arrival: EMS: [facility] mb9 Historical: - Allergies: 18:30 Morphine; mb9 - Home Meds: 18:30 milrinone in 5 % dextrose intravenous 60mg/300 ml [Active]; mb9 - PMHx: 18:30 colon cancer (colon cancer); Congestive heart failure; diabetes mellitus; Hypertensive mb9 disorder; - PSHx: 18:30 Cholecystectomy; Defibrilator; PICC RUE; mb9 - Immunization history:: Adult Immunizations up to date. - Infectious Disease History:: Denies. - Social history:: Smoking status: Patient denies any tobacco usage or history of. - Family history:: not pertinent. - Hospitalizations: : No recent hospitalization is reported. Screenin:34 [facility] ED Fall Risk Assessment (Adult) History of falling in the last 3 months, mb9 including since admission Yes- fall prone (multiple falls) (3 pts) Confusion or Disorientation No (0 pts) Intoxicated or Sedated No (0 pts) Impaired Gait Yes (1 pt) Mobility Assist Device Used No (0 pt) Altered Elimination No (0 pt) Score/Fall Risk Level 3 or more points = High Risk Oriented to surroundings, Maintained a safe environment, Educated pt \\T\\ family on fall prevention, incl call for assistance when getting out of bed. Abuse screen: Denies threats or abuse. Nutritional screening: No deficits noted. Tuberculosis screening: No symptoms or risk factors identified. Assessment: 18:15 General: Appears uncomfortable, Behavior is cooperative. Pain: Complains of pain in mb9 chest. Neuro: Gupta Agitation-Sedation Scale (RASS): 0 - Alert and Calm Level of Consciousness is awake, alert, obeys commands, Oriented to person, place, time, situation, Appropriate for age. Cardiovascular: Reports chest pain, shortness of breath, Heart tones S1 S2 present Rhythm is sinus tachycardia. Respiratory: Airway is patent Respiratory effort is labored, using tripod position, Respiratory pattern is tachypnea Breath sounds with crackles bilaterally. GI: Abdomen is flat, non-distended. : No signs and/or symptoms were reported regarding the genitourinary system. EENT: No signs and/or symptoms were reported regarding the EENT system. Derm: Skin is fragile, Skin is dry, Skin is pale. Musculoskeletal: Range of motion: intact in all extremities. 18:15 Musculoskeletal: Swelling present in right foot, left foot, right leg and left leg. mb9 18:15 Reassessment: Pt on Milrinone 60 mg in D5W 300mL, infusing at a continuous rate of 3.7 mb9 mL/hr (0.25mcg/kg/min). 18:31 Reassessment: VO to hold IV Laxis from Dr. Luna due to BP. mb9 18:40 Reassessment: RT at bedside placing BIPAP. mb9 19:26 General: Appears in no apparent distress. ill, slender, Behavior is calm, cooperative. al5 Pain: Complains of pain in chest Pain currently is 3 out of 10 on a pain scale. Neuro: Level of Consciousness is awake, alert, obeys commands, Oriented to person, place, time, situation. Cardiovascular: Heart tones S1 S2 present muffled Pulses are all present. Edema is 3+ to left foot and right foot pitting to left foot and right foot Rhythm is sinus tachycardia with multifocal PVCs. Respiratory: Airway is patent Respiratory effort is even, unlabored, Respiratory pattern is regular, symmetrical, Patient placed on BiPAP: Inspiratory Pressure: 10 Expiratory (EPAP) Pressure: 7 FiO2%: 30 Respiratory Rate: 16 Breath sounds with crackles bilaterally. Breath sounds are diminished in right lower lobe. GI: Abdomen is flat, non-distended. : No signs and/or symptoms were reported regarding the genitourinary system. EENT: No signs and/or symptoms were reported regarding the EENT system. Derm: Skin is intact, is fragile, Skin is dry, Skin is pale, Wound noted coccyx Other: states patient had wound to sacral area prior to arrival. 20:00 Reassessment: Patient and/or family updated on plan of care and expected duration. Pain kb4 level reassessed. Patient is alert, oriented x 3, equal unlabored respirations, skin warm/dry/pink. 21:00 Reassessment: Patient and/or family updated on plan of care and expected duration. Pain kb4 level reassessed. Patient is alert, oriented x 3, equal unlabored respirations, skin warm/dry/pink. 22:18 Reassessment: Patient and/or family updated on plan of care and expected duration. Pain kb4 level reassessed. Patient is alert, oriented x 3, equal unlabored respirations, skin warm/dry/pink. 07/31 01:33 Reassessment: gave report to NEY diaz in ICU. al5 Vital Signs: 07/30 18:05 BP 94 / 76; Pulse 118; Resp 28; Pulse Ox 96% on 6 lpm NC; Weight 22.18 kg; Height 5 ft. mb9 5 in. ; Pain 0/10; 18:20 BP 106 / 69; Pulse 116; Resp 26; Pulse Ox 95% ; mb9 18:25 BP 100 / 71; Pulse 115; Resp 28; Pulse Ox 95% 6 lpm ; mb9 18:30 BP 104 / 65; Pulse 114; Resp 30; Temp 98.8; Pulse Ox 94% on R/A; FiO2 6 %; mb9 18:35 BP 99 / 55; Pulse 112; Resp 26; Pulse Ox 98% ; mb9 18:45 BP 106 / 73; Pulse 111; Resp 28; Pulse Ox 99% on BiPAP; mb9 19:04 BP 104 / 79; Pulse 111; Resp 20; Pulse Ox 100% ; nh2 20:00 BP 106 / 78; Pulse 111; Resp 18; Pulse Ox 98% ; kb4 21:00 BP 104 / 76; Pulse 110; Resp 18; Pulse Ox 99% on R/A; kb4 22:17 BP 106 / 80; Pulse 110; Resp 18; Pulse Ox 96% ; kb4 18:05 Body Mass Index 8.14 (22.18 kg, 165.1 cm) mb9 18:05 Pain Scale: Adult mb9 ED Course: 18:05 Patient arrived in ED. nh2 18:08 Kings Luna MD is Attending Physician. bp 18:21 Danii Galindo RN is Primary Nurse. mb9 18:24 Arm band placed on. mb9 18:30 Triage completed. mb9 18:31 Initial lab(s) drawn, by nj, sent to lab. Inserted saline lock: 20 gauge in left mb9 forearm, using aseptic technique. Blood collected. Flushed with 10 mL NS. 18:32 EKG done, by ED staff, reviewed by Kings Luna MD. Inserted saline lock: 22 gauge in mb9 left forearm, using aseptic technique. 18:34 Placed in gown. Bed in low position. Call light in reach. Side rails up X 1. Provided mb9 Education on: press call light if needing anything. Client placed on continuous cardiac and pulse oximetry monitoring. NIBP monitoring applied. monitoring manager on. 18:42 No provider procedures requiring assistance completed. mb9 18:46 One-on-one care X 15 minutes. mb9 18:53 Chest Single View XRAY In Process Unspecified. EDMS 19:00 Attending Physician role handed off by Kings Luna MD tt7 19:00 Ross Thornton DO is Attending Physician. tt7 19:13 Report given to NEY Holder. mb9 22:35 True Mcdowell MD is Hospitalizing Provider. tt7 10 01:33 Patient admitted, IV remains in place. al5 Administered Medications: 07/30 18:15 Drug: Milrinone IV 0.25 mcg/kg/min IV at calculated rate continuous Route: IV; Rate: mb9 calculated rate; Site: PICC; 23:21 Follow up: Response: No adverse reaction; IV Status: Infusion continued upon admission al5 22:39 Drug: Furosemide IVP 40 mg IVP once; give over 2 minutes Route: IVP; Site: left forearm;al5 23:21 Follow up: Response: No adverse reaction al5 22:39 Drug: Droperidol IVP 1.25 mg IVP once Route: IVP; Site: left forearm; al5 23:21 Follow up: Response: No adverse reaction; Anxiety decreased al5 Medication: 18:42 VIS not applicable for this client. mb9 Outcome: 22:36 Decision to Hospitalize by Provider. tt7 07/31 02:16 Admitted to ICU accompanied by nurse, via stretcher, room ICU 4, with oxygen, on al5 monitor, with chart, Condition: stable Instructed on the need for admit, 02:16 Patient left the ED. al5 Signatures: Dispatcher [employer] EDMS Kings Luna MD MD rn Peltier, Brian, RN RN bp Wilkerson, Mary Beth, RN RN mb9 Langhorst, Amanda, RN RN al5 Hernandez Jr, Noel, RN RN cox branson Latosha Young RN RN kb4 Ross Thornton, DO tt7 Corrections: (The following items were deleted from the chart) 10 18:42 18:15 GI: Abdomen is flat, non-distended, mb9 mb9 18:43 18:40 BP 104 / 65; Pulse 114bpm; Resp 30bpm; Pulse Ox 94% RA FiO2 6%; mb9 mb9 18:45 18:41 Musculoskeletal: Swelling present in right foot, left foot, right leg and left mb9 leg mb9 18:45 18:42 Reassessment: mb9 mb9 18:46 18:40 BP 104 / 65; Pulse 114bpm; Resp 30bpm; Pulse Ox 94% RA FiO2 6%; Temp 98.8F; mb9 mb9 23:13 23:13 Reassessment: pt leaving Via [facility] kb4 kb4
--- NOTE | 2025-07-30 22:41 | P.HP ---
Certification for Inpatient Patient admitted to: Inpatient With expected LOS: >2 Midnights Practitioner: I am a practitioner with admitting privileges, knowledge of patient current condition, hospital course, and medical plan of care. Services: Services provided to patient in accordance with Admission requirements found in Title 42 Section 412.3 of the Code of Federal Regulations Patient History Date of Service: 07/31/25 Reason for admission: SOB History of Present Illness: 54-year-old male with history of heart failure with reduced ejection fraction of around 10% with AICD placement on continuous milrinone infusion, type 2 diabetes, hypertension, hyperlipidemia presented to the emergency department chief complaint of shortness of breath. Started 3 to 4 days ago and has been progressively getting worse. Associated with bilateral lower extremity swelling as well. And was brought to ER. He was inpatient at [facility] for some time in March for evaluation of his heart failure, that is when his milrinone was started, he was not a candidate for LVAD or transplant at that time, not for LVAD given his weakness and deconditioning and not for heart transplant given his history of colon cancer around 2 years ago.Patient was evaluated in the emergency department. Patient noted to have edema of the lower extremities particularly his feet with pitting edema, chest x-ray shows progressive central opacities more so on the right and progressive effusions. Findings likely relate to pulmonary edema. ER consulted manager of compliance as well Patient is being admitted to the ICU with Lasix drip Allergies morphine Allergy (Verified 06/20/25 01:31) Nausea/Vomiting Home medications list reviewed: Yes Home Medications: Atorvastatin Calcium [Lipitor*] 20 mg PO BEDTIME 01/22/25 Escitalopram Oxalate [Lexapro] 10 mg PO DAILY PRN 01/22/25 Timolol Maleate [Timoptic] 1 gtt OP BEDTIME 01/22/25 Aspirin [Aspirin EC 81 MG] 81 mg PO DAILY 30 Days #30 tab 03/16/25 Bumetanide [Bumex*] 1 tab PO DAILY 06/20/25 Magnesium Oxide [Mag 0X*] 400 mg PO DAILY 06/20/25 Mexiletine HCl [Mexitil*] 150 mg PO Q8H 06/20/25 Milrinone Lact/D5w [Milrinone 20 MG/100 ML IVPB (PREMIX)*] 3.7 mcg IV SEECOM 06/20/25 Nystatin Powder [Mycostatin (Powder)*] 1 appl TOP BID 06/20/25 Spironolactone [Aldactone*] 12.5 mg PO DAILY 06/20/25 Ondansetron [Zofran (Odt)*] 4 mg PO Q6H PRN 7 Days #28 tab 06/22/25 Calcium Carbonate/Vitamin D3 [Oscal 500 + Vit D 200 Iu Tab*] 1 tab PO BID 07/15/25 Famotidine 20 mg PO DAILY 07/15/25 Ferrous Sulfate [Iron] 325 mg PO BID 07/15/25 Atorvastatin Calcium [Lipitor*] 20 mg PO BEDTIME tab 07/19/25 Bumetanide [Bumex*] 1 mg PO BID tab 07/19/25 Glucerna Shake [Glucerna*] 237 ml PO BID can 07/19/25 Nicko [Nicko*] 1 pkt PO BID 07/19/25 Mexiletine HCl [Mexitil*] 150 mg PO Q8HR cap 07/19/25 Na Bicarb Tab [Sodium Bicarb 325 MG Tab*] 1,300 mg PO TIDWM 14 Days #168 tab 07/19/25 Spironolactone [Aldactone*] 12.5 mg PO DAILY tab 07/19/25 - Past Medical/Surgical History Diabetic: Yes Past Medical History: Reviewed- Non-Contributory -: HTN -: Systolic Diastolic CHF LVEF 10 percent -: Moderate Pulmonary HTN -: DM II -: CKD I with Proteinuria (Dr. Leary/ Don) -: CAD/ [place] -: Colon Cancer Stage II Past Surgical History: Reviewed- Non-Contributory -: cardiac stents placement in January -: Bowel Resection -: Ileostomy reversal - Family History Father -: Hypertension, Diabetes - Social History Smoking Status: Never smoker Alcohol use: No CD- Drugs: No Caffeine use: Yes Review of Systems is unable to be obtained Physical Examination - Vital Signs Temperature: 98.4 F Blood Pressure: 93/68 Pulse: 113 Respirations: 18 Pulse Ox (%): 94 - Physical Exam General: Alert, Cooperative, Cachectic, Moderate distress HEENT: Atraumatic, Normocephalic Neck: Supple Respiratory: Diminished, Crackles/rales Cardiovascular: Regular rate/rhythm, Normal S1 S2 Capillary refill: <2 Seconds Gastrointestinal: Soft and benign, W/out hepatosplenomegaly Musculoskeletal: No clubbing, Swelling Integumentary: No rashes Neurological: Other (Alert awake nonfocal) Lymphatics: No axilla or inguinal lymphadenopathy - Studies Laboratory Data (last 24 hrs) 07/30/25 07/30/25 07/30/25 18:16 18:16 18:16 WBC 8.60 Hgb 12.0 L Hct 37.5 L Plt Count 209 PT 14.5 H INR 1.29 APTT 32.5 Sodium 135 L Potassium 5.1 BUN 89 H Creatinine 1.81 H Glucose 222 H Total Bilirubin 0.6 AST 11 L ALT 18 Alkaline Phosphatase 200 H Assessment and Plan - Plan Acute hypoxic respiratory failure On BiPAP Admit to ICU Bronchodilators as needed Oxygen supplementation Try to wean down oxygen requirement Acute pulmonary edema Acute on chronic HFrEF S/P AICD placement on continu acute pulmonary edema ous milrinone drip with known EF of around 10% Started on Lasix drip Admit to ICU Cardiology consult Acute kidney injury on CKD stage II Hyponatremia Electrolytes monitor and replace accordingly Renal parameters monitored Diabetes mellitus type [id number] Insulin sliding scale Monitor A1c History of colon cancer History of cholecystectomy History of C. difficile Continue home medications and titrate as needed Severe protein calorie malnutrition Change Booth Attendant consult in a.m. GI/DVT prophylaxis Advanced directive full code Discharge Plan: Home Plan to discharge in: 48 Hours - Advance Directives Does patient have a Living Will: No Does patient have a Durable POA for Healthcare: No - Code Status/Comfort Care Code Status: Full Code Time Spent Managing Pts Care (In Minutes): 48
[2025-07-30] MEDS ORDERED: NA CHLORIDE 0.9% 100 ML ONE (23:52)
[2025-07-30] MEDS ORDERED: FUROSEMIDE 100 MG/10 ML VIAL IV ONE (23:52)
[2025-07-31] MEDS: FUROSEMIDE 100 MG in NA CHLORIDE 0.9% 90 ML IV SCH (00:03)
[2025-07-31] MEDS ORDERED: FUROSEMIDE 100 MG in NA CHLORIDE 0.9% 90 ML IV SCH (01:00)
[2025-07-31 06:05] LABS: Absolute Lymphocytes (CBC) 1.3 K/uL (0.7-4.9); Hematocrit 31.4 % (39.6-49.0); Hemoglobin 10.5 g/dL (13.6-17.9); MCH 31.8 pg (27.0-35.0); MCHC 33.6 g/dL (32.0-36.0); MCV 94.7 fL (80-100); MPV 9.5 fL (7.6-11.3); Nucleated RBC Absolute Count 0.0 (0-0); Nucleated Red Blood Cells % 0.1 % (0-0); RBC Red Blood Cell Count 3.31 M/uL (4.33-5.43); White Blood Count 6.50 thou/uL (4.3-10.9)
[2025-07-31 06:28] LABS: ALT/SGPT 16 U/L (16-61); AST/SGOT < 10 U/L (15-37); Albumin 2.8 g/dL (3.4-5.0); Albumin/Globulin Ratio 0.7 (1.1-1.8); Alkaline Phosphatase 168 U/L (45-117); Anion Gap 11.5 mEq/L (5.0-15.0); BUN Blood Urea Nitrogen 89 mg/dL (7-18); Globulin 3.8 g/dL (2.3-3.5); Glucose Level 152 mg/dL (74-106); Magnesium 2.5 mg/dL (1.6-2.4); Potassium 4.5 mEq/L (3.5-5.1)
[2025-07-31] MEDS: FENTANYL CITR 100 MCG/2 ML IV ONE (09:08)
[2025-07-31] MEDS: ENOXAPARIN 30 MG/0.3 ML SQ SCH (09:09)
[2025-07-31] MEDS: LIDOCAINE JELLY 2% 5 ML SYRINGE TOP ONE (09:09)
--- NOTE | 2025-07-31 13:21 | P.PN ---
Subjective Date of Service: 07/31/25 Chief Complaint: SOB Patient reports significant improvement in his shortness of breath as compared to presentation in the ED. Nursing staff report patient bladder scan showed he was retaining 500 mL of urine. Borderline low blood pressure noted. Physical Examination - Vital Signs Temperature: 97 F Blood Pressure: 98/59 Pulse: 108 Respirations: 24 Pulse Ox (%): 98 - Studies Laboratory Data (last 24 hrs) 07/30/25 07/30/25 07/30/25 18:16 18:16 18:16 WBC 8.60 Hgb 12.0 L Hct 37.5 L Plt Count 209 PT 14.5 H INR 1.29 APTT 32.5 Sodium 135 L Potassium 5.1 BUN 89 H Creatinine 1.81 H Glucose 222 H Total Bilirubin 0.6 AST 11 L ALT 18 Alkaline Phosphatase 200 H Assessment And Plan - Plan Physical examination General: Alert and oriented x 3, NAD, cachectic. HEENT: Anicteric sclera Neck: Supple, no elevated JVD Heart: Heart sounds 1 and 2 normal, regular rhythm, normal rate, no pedal edema Lungs: Mild bibasilar crackles, adequate breath sounds bilaterally, no rhonchi or crackles. Abdomen: Soft, nondistended, nontender, normal bowel sounds. Extremities: No tenderness, no deformity Skin: Normal skin turgor, no rash, no nodules or ulcers. Neuro: No focal motor deficit. Normal speech. Psychiatry: Normal mood, no agitation. Diagnosis Acute hypoxic respiratory failure Acute pulmonary edema Acute on chronic systolic heart failure Acute on chronic kidney disease stage II Hyponatremia-resolved Diabetes mellitus type 2 Acute urinary retention Severe protein calorie nutrition Plan Acute hypoxic respiratory failure Acute pulmonary edema Acute on chronic systolic heart failure Respiratory condition improved Patient weaned off BiPAP to oxygen by nasal cannula Cardiology consult appreciated Continue Lasix drip Continue milrinone drip Greenwood catheter for strict input and output monitoring Bronchodilators as needed Oxygen supplementation Acute kidney injury on CKD stage II Hyponatremia Hyponatremia resolved. Serum creatinine is improving Continue to monitor renal function and replace electrolytes as needed Diabetes mellitus type [id number] Insulin sliding scale Severe protein calorie malnutrition Nutritional supplementation. DVT prophylaxis: Lovenox. CODE STATUS: Full code
--- NOTE | 2025-07-31 13:49 | P.CNS ---
Date of Consult: 07/31/25 Chief Complaint: SOB History of Present Illness: Patient with PMH of advanced combined heart failure on palliative milrinone drip, not a candidate for LVAD or transplant, presented with worsening SOB, CHAVARRIA and bilateral lower extremities edema, denies chest pain, no palpitations. Allergies morphine Allergy (Verified 06/20/25 01:31) Nausea/Vomiting Home medications list reviewed: Yes Home Medications: Atorvastatin Calcium [Lipitor*] 20 mg PO BEDTIME 01/22/25 Escitalopram Oxalate [Lexapro] 10 mg PO DAILY PRN 01/22/25 Timolol Maleate [Timoptic] 1 gtt OP BEDTIME 01/22/25 Aspirin [Aspirin EC 81 MG] 81 mg PO DAILY 30 Days #30 tab 03/16/25 Bumetanide [Bumex*] 1 tab PO DAILY 06/20/25 Magnesium Oxide [Mag 0X*] 400 mg PO DAILY 06/20/25 Mexiletine HCl [Mexitil*] 150 mg PO Q8H 06/20/25 Milrinone Lact/D5w [Milrinone 20 MG/100 ML IVPB (PREMIX)*] 3.7 mcg IV SEECOM 06/20/25 Nystatin Powder [Mycostatin (Powder)*] 1 appl TOP BID 06/20/25 Spironolactone [Aldactone*] 12.5 mg PO DAILY 06/20/25 Ondansetron [Zofran (Odt)*] 4 mg PO Q6H PRN 7 Days #28 tab 06/22/25 Calcium Carbonate/Vitamin D3 [Oscal 500 + Vit D 200 Iu Tab*] 1 tab PO BID 07/15/25 Famotidine 20 mg PO DAILY 07/15/25 Ferrous Sulfate [Iron] 325 mg PO BID 07/15/25 Atorvastatin Calcium [Lipitor*] 20 mg PO BEDTIME tab 07/19/25 Bumetanide [Bumex*] 1 mg PO BID tab 07/19/25 Glucerna Shake [Glucerna*] 237 ml PO BID can 07/19/25 Nicko [Nicko*] 1 pkt PO BID 07/19/25 Mexiletine HCl [Mexitil*] 150 mg PO Q8HR cap 07/19/25 Na Bicarb Tab [Sodium Bicarb 325 MG Tab*] 1,300 mg PO TIDWM 14 Days #168 tab 07/19/25 Spironolactone [Aldactone*] 12.5 mg PO DAILY tab 07/19/25 - Past Medical/Surgical History Diabetic: Yes -: HTN -: Systolic Diastolic CHF LVEF 10 percent -: Moderate Pulmonary HTN -: DM II -: CKD I with Proteinuria (Dr. Leary/ Don) -: CAD/ [place] -: Colon Cancer Stage II -: Pulmonary HTN -: cardiac stents placement in January -: Bowel Resection -: Ileostomy reversal - Family History Father Medical History: Hypertension, Diabetes - Social History Smoking Status: Unknown if ever smoked Alcohol use: No CD- Drugs: No Caffeine use: Yes Place of Residence: Home Review of Systems 10-point ROS is otherwise unremarkable Physical Examination Temp Pulse Resp BP Pulse Ox 97 F 108 H 24 H 98/59 L 98 07/31/25 13:33 07/31/25 13:33 07/31/25 13:33 07/31/25 13:33 07/31/25 13:33 General: Alert, In no apparent distress HEENT: Atraumatic, PERRLA, Mucous membr. moist/pink, EOMI, Sclerae nonicteric Neck: Supple, 2+ carotid pulse no bruit, No LAD, Without JVD or thyroid ab normality Respiratory: Clear to auscultation bilaterally, Normal air movement Cardiovascular: Regular rate/rhythm, Normal S1 S2 Gastrointestinal: Normal bowel sounds, No tenderness Musculoskeletal: No tenderness Integumentary: No rashes Neurological: Normal gait, Normal speech, Normal tone, Normal affect Lymphatics: No axilla or inguinal lymphadenopathy Laboratory Data (last 24 hrs) 07/30/25 07/30/25 07/30/25 18:16 18:16 18:16 WBC 8.60 Hgb 12.0 L Hct 37.5 L Plt Count 209 PT 14.5 H INR 1.29 APTT 32.5 Sodium 135 L Potassium 5.1 BUN 89 H Creatinine 1.81 H Glucose 222 H Total Bilirubin 0.6 AST 11 L ALT 18 Alkaline Phosphatase 200 H - Problems (1) Acute on chronic combined systolic and diastolic heart failure Current Visit: No Status: Acute Plan: patient with end stage HF, cardiac cachexia, on palliative milrinone, presented with CHF exacerbation continue lasix drip at 5 mg/hr monitor input and out and electrolytes (2) CKD stage 2 due to type 2 diabetes mellitus Current Visit: No Status: Chronic Plan: continue to monitor kidney function (3) HTN (hypertension) Current Visit: No Status: Chronic Plan: BP is soft, continue to monitor Qualifiers: Hypertension type: primary hypertension
[2025-07-31 14:26] LABS: Magnesium 2.4 mg/dL (1.6-2.4)
[2025-07-31] MEDS: FUROSEMIDE 100 MG/10 ML VIAL IV ONE (19:12)
[2025-07-31] MEDS: NA CHLORIDE 0.9% 100 ML ONE (19:13)
[2025-08-01] MEDS: DEXTROSE IV PRN
[2025-08-01] MEDS: MILRINONE IV PRN
[2025-08-01 05:44] LABS: Absolute Lymphocytes (CBC) 1.2 K/uL (0.7-4.9); Hematocrit 30.8 % (39.6-49.0); Hemoglobin 10.7 g/dL (13.6-17.9); MCH 32.4 pg (27.0-35.0); MCHC 34.6 g/dL (32.0-36.0); MCV 93.5 fL (80-100); MPV 9.0 fL (7.6-11.3); Nucleated RBC Absolute Count 0.0 (0-0); Nucleated Red Blood Cells % 0.3 % (0-0); RBC Red Blood Cell Count 3.30 M/uL (4.33-5.43); White Blood Count 6.70 thou/uL (4.3-10.9)
[2025-08-01 06:07] LABS: Anion Gap 10.3 mEq/L (5.0-15.0); BUN Blood Urea Nitrogen 86.0 mg/dL (7-18); Glucose Level 85.0 mg/dL (74-106); Magnesium 2.2 mg/dL (1.6-2.4); Potassium 4.3 mEq/L (3.5-5.1)
[2025-08-01] MEDS: ONDANSETRON 4 MG/2 ML VIAL IV PRN (07:29)
[2025-08-01] MEDS: ALBUMIN HUMAN 25% 12.5 GM, FUROSEMIDE 100 MG in NA CHLORIDE 0.9% 40 ML IV SCH ×2 (11:32→23:01)
--- NOTE | 2025-08-01 11:40 | P.PN ---
Subjective Date of Service: 08/01/25 Chief Complaint: SOB Patient appeared to be short of breath with talking. He desaturated to the 80s on room air. Greenwood catheter in place, 750 mL output over the past 24 hours. BP fluctuating from low to normal. Physical Examination - Vital Signs Temperature: 97.6 F Blood Pressure: 88/68 Pulse: 96 Respirations: 20 Pulse Ox (%): 96 Assessment And Plan - Plan Physical examination General: Alert and oriented x 3, NAD, cachectic. HEENT: Anicteric sclera Neck: Supple, no elevated JVD Heart: Heart sounds 1 and 2 normal, regular rhythm, normal rate, no pedal edema Lungs: Mild bibasilar crackles, adequate breath sounds bilaterally, no rhonchi or crackles. Abdomen: Soft, nondistended, nontender, normal bowel sounds. Extremities: No tenderness, no deformity Skin: Normal skin turgor, no rash, no nodules or ulcers. Neuro: No focal motor deficit. Normal speech. Psychiatry: Normal mood, no agitation. Diagnosis Acute hypoxic respiratory failure Acute pulmonary edema Acute on chronic systolic heart failure Acute on chronic kidney disease stage II Hyponatremia-resolved Diabetes mellitus type 2 Acute urinary retention Severe protein calorie nutrition Plan Acute hypoxic respiratory failure Acute pulmonary edema Acute on chronic systolic heart failure Respiratory condition improved Patient weaned off BiPAP to oxygen by nasal cannula Cardiology consult appreciated Continue Lasix drip Continue milrinone drip Greenwood catheter for strict input and output monitoring Bronchodilators as needed Oxygen supplementation Acute kidney injury on CKD stage II Hyponatremia Hyponatremia resolved. Serum creatinine is improving Continue to monitor renal function and replace electrolytes as needed Diabetes mellitus type [id number] Insulin sliding scale Severe protein calorie malnutrition Nutritional supplementation. 08/01/2025 1. Respiratory status improved with diuresis. Continue Lasix drip with albumin infusion, wean oxygen as tolerated. 2. Serum creatinine is creeping up, albumin added to Lasix drip. Nephrology consult. Monitor and optimize electrolytes. Monitor urine output. 3. Continue amiodarone drip 4. Bronchodilators as needed 5. Wean oxygen as tolerated 6. Nutritional supplementation. I recommended frequent high-calorie diet with protein supplements. 7. PT consult for generalized weakness. Patient states he was able to transfer independently from bed to wheelchair prior to presentation. DVT prophylaxis: Lovenox. CODE STATUS: Full code
[2025-08-01] MEDS: METOLAZONE 5 MG TABLET PO ONE (14:17)
--- NOTE | 2025-08-01 17:12 | CON ---
Date of Consultation: 08/01/2025 Reason For Consult: Acute renal failure. History Of Present Illness: Mr. Farr is a 54-year-old male with past medical history significant f or severe ischemic cardiomyopathy with severely decreased EF, who is on chronic Milrinone drip and AI CD, presented to [facility] with worsening shortness of breath. He reported worsening short ness of breath 3 to 4 days prior to admission, which was progressively worsening and associated with worsening bilateral lower extremity swelling as well. He was inpatient at [facility] sometime in March for evaluation of his heart failure and he was discharged on Milrinone drip at that time. He was not a candidate for LVAD or transplant because of weakness and he had deconditioning and history of colon cancer about 2 years ago. He was admitted to the ICU and has been started on Lasix drip wi th some improvement in his shortness of breath, but with decreased urine output and creatinine worsen ing to 1.9, and hence Nephrology is being consulted for further management. Past Medical History: Significant for history of hypertension, systolic heart failure with decreased EF of less than 10%, moderate pulmonary hypertension, chronic Milrinone drip, history of colon cance r. Past Surgical History: Significant for history of bowel resection, ileostomy reversal, and cardiac s tent placement. Family History: Noncontributory. Social History: No history of smoking or alcohol use reported. Medications: He is currently on Lasix drip at 5 mg/hour along with albumin and Milrinone drip as wel l. Review of Systems: Positive for shortness of breath, worsening lower extremity edema. All other review of systems are n egative. Physical Examination: Vital Signs: Showing temperature of 98.4, pulse rate of 96, respiratory rate of 20, and blood pressu re 106/81. General: He appears cachectic, malnourished. He is on 3 L of nasal cannula oxygen and he is able to talk comfortably. HEENT: Shows atraumatic head. Lungs: Auscultation of the lungs reveal diminished breath sounds at bilateral bases. Heart: Auscultation of heart revealed regular rate and rhythm. Abdomen: Noted to have some distention and anasarca. Extremities: Bilateral lower extremity edema all the way up to the level of thighs was noted. Laboratory Data: At this time; creatinine of 1.96, BUN of 86, sodium of 134, potassium of 4.3, and c hloride of 107. CBC results are showing stable hemoglobin, hematocrit, and platelet count. Imaging Data: Chest x-ray done at the time of admission on the second, showed moderate CHF and volum e overload pattern. Impression/plan: The patient is a 54-year-old male who has advanced heart failure leading to cardior enal syndrome with worsening volume status in the setting of diuretic use as well as oliguria and nee ds optimization of his diuretic regimen. At this point, we will add a dose of metolazone and see how he does and we will increase his Lasix to 7.5 mg/hour and he may consider midodrine to improve his b lood pressure, but I will hold off for right now and see how he does with these adjustments. Thank you very much for this consultation. Please do not hesitate to call us with any questions or c oncerns. NISHANT/SILVIA Voice ID: [id number] Report ID: [id number]
[2025-08-01] MEDS: IPRATROPIUM BROM 0.5MG/2.5ML NEB PRN (19:24)
[2025-08-01] MEDS: ALBUTEROL 2.5 MG/3 ML NEB SOL NEB PRN (19:24)
[2025-08-02 05:56] LABS: Absolute Lymphocytes (CBC) 1.0 K/uL (0.7-4.9); Hematocrit 30.2 % (39.6-49.0); Hemoglobin 10.5 g/dL (13.6-17.9); MCH 32.3 pg (27.0-35.0); MCHC 34.7 g/dL (32.0-36.0); MCV 92.9 fL (80-100); MPV 9.0 fL (7.6-11.3); Nucleated RBC Absolute Count 0.0 (0-0); Nucleated Red Blood Cells % 0.2 % (0-0); RBC Red Blood Cell Count 3.24 M/uL (4.33-5.43); White Blood Count 6.10 thou/uL (4.3-10.9)
[2025-08-02 06:14] LABS: Anion Gap 13.3 mEq/L (5.0-15.0); BUN Blood Urea Nitrogen 83.0 mg/dL (7-18); Glucose Level 90.0 mg/dL (74-106); Magnesium 2.4 mg/dL (1.6-2.4); Potassium 3.3 mEq/L (3.5-5.1)
--- NOTE | 2025-08-02 09:28 | P.PN ---
Subjective Date of Service: 08/02/25 Chief Complaint: SOB Subjective: No new changes, No C/O voiced, Tolerating diet, Improving Physical Examination - Vital Signs Temperature: 97.1 F Blood Pressure: 96/67 Pulse: 94 Respirations: 16 Pulse Ox (%): 95 - Physical Exam General: Alert, In no apparent distress HEENT: Atraumatic, PERRLA, EOMI Neck: Supple, JVD not distended Respiratory: Clear to auscultation bilaterally, Normal air movement Cardiovascular: Regular rate/rhythm, Normal S1 S2 Gastrointestinal: Normal bowel sounds, No tenderness Musculoskeletal: No tenderness Integumentary: No rashes Neurological: Normal speech, Normal tone, Normal affect Lymphatics: No axilla or inguinal lymphadenopathy - Studies Medications List Reviewed: Yes Assessment And Plan - Current Problems (Diagnosis) (1) Acute on chronic combined systolic and diastolic heart failure Current Visit: No Status: Acute Plan: patient with end stage HF, cardiac cachexia, on palliative milrinone, presented with CHF exacerbation continue lasix drip at 7.5 mg/hr monitor input and out and electrolytes (2) CKD stage 2 due to type 2 diabetes mellitus Current Visit: No Status: Chronic Plan: continue to monitor kidney function (3) HTN (hypertension) Current Visit: No Status: Chronic Plan: BP is soft, continue to monitor Qualifiers: Hypertension type: primary hypertension
[2025-08-02] MEDS: POTASSIUM 25 MEQ EFFERV TAB PO ONE (09:31)
[2025-08-02] MEDS: MEXILETINE HCL 150 MG CAP PO SCH (09:36)
--- NOTE | 2025-08-02 10:56 | P.PN ---
Subjective Date of Service: 08/02/25 Chief Complaint: SOB Patient has no new complaint except shortness of breath with talking. Blood pressure readings improved. Patient still requiring about 4 L of oxygen by nasal cannula Urine output significantly improved with Lasix plus albumin drip. Physical Examination - Vital Signs Temperature: 97.1 F Blood Pressure: 92/53 Pulse: 100 Respirations: 20 Pulse Ox (%): 95 - Studies Medications List Reviewed: Yes Assessment And Plan - Plan Physical examination General: Alert and oriented x 3, NAD, cachectic. Neck: No elevated JVD Heart: Heart sounds 1 and 2 normal, regular rhythm, normal rate, trace pedal edema Lungs: Right basilar crackles, adequate breath sounds bilaterally, no rhonchi. Abdomen: Soft, nondistended, nontender, normal bowel sounds. Extremities: No tenderness, no deformity Skin: Normal skin turgor, no rash, no nodules or ulcers. Neuro: No focal motor deficit. Normal speech. Psychiatry: Normal mood, no agitation. Diagnosis Acute hypoxic respiratory failure Acute pulmonary edema Acute on chronic systolic heart failure Acute on chronic kidney disease stage II Hyponatremia-resolved Diabetes mellitus type 2 Acute urinary retention Severe protein calorie nutrition Plan Acute hypoxic respiratory failure Acute pulmonary edema Acute on chronic systolic heart failure Respiratory condition improved Patient weaned off BiPAP to oxygen by nasal cannula Cardiology consult appreciated Continue Lasix drip Continue milrinone drip Green[place] catheter for strict input and output monitoring Bronchodilators as needed Oxygen supplementation Acute kidney injury on CKD stage II Hyponatremia Hyponatremia resolved. Serum creatinine is improving Continue to monitor renal function and replace electrolytes as needed Diabetes mellitus type [id number] Insulin sliding scale Severe protein calorie malnutrition Nutritional supplementation. 08/01/2025 1. Respiratory status improved with diuresis. Continue Lasix drip with albumin infusion, wean oxygen as tolerated. 2. Serum creatinine is creeping up, albumin added to Lasix drip. Nephrology consult. Monitor and optimize electrolytes. Monitor urine output. 3. Continue amiodarone drip 4. Bronchodilators as needed 5. Wean oxygen as tolerated 6. Nutritional supplementation. I recommended frequent high-calorie diet with protein supplements. 7. PT consult for generalized weakness. Patient states he was able to transfer independently from bed to wheelchair prior to presentation. 08/02/2025 1. Urine output improved with diuresis with Lasix drip plus albumin infusion. Renal function stabilized with the current Lasix infusion. Continue current dose Lasix infusion with albumin drip. 2. Renal function stabilized. Nephrology input appreciated. Lasix drip dose increased to 7.5 mg/h. Patient received a dose of metolazone today with significant improvement in urine output and improvement in serum creatinine. Nephrology to follow. 3. Continue mexiletine and milrinone drip. Cardiology Dr. Johnson is following. 4. Wean oxygen as tolerated. 5. PT consult DVT prophylaxis: Lovenox. CODE STATUS: Full code
[2025-08-02] MEDS: ACETAMINOPHEN 325 MG TABLET PO PRN (22:31)
[2025-08-03 05:25] LABS: Absolute Lymphocytes (CBC) 1.0 K/uL (0.7-4.9); Hematocrit 29.4 % (39.6-49.0); Hemoglobin 10.0 g/dL (13.6-17.9); MCH 31.9 pg (27.0-35.0); MCHC 34.1 g/dL (32.0-36.0); MCV 93.7 fL (80-100); MPV 8.9 fL (7.6-11.3); Nucleated RBC Absolute Count 0.0 (0-0); Nucleated Red Blood Cells % 0.1 % (0-0); RBC Red Blood Cell Count 3.14 M/uL (4.33-5.43); White Blood Count 4.50 thou/uL (4.3-10.9)
[2025-08-03 05:45] LABS: Anion Gap 13.7 mEq/L (5.0-15.0); BUN Blood Urea Nitrogen 82.0 mg/dL (7-18); Glucose Level 79.0 mg/dL (74-106); Potassium 3.7 mEq/L (3.5-5.1)
[2025-08-03] MEDS: POTASSIUM CL SA 10 MEQ TAB PO ONE ×2 (08:46→14:15)
--- NOTE | 2025-08-03 10:22 | P.PN ---
Subjective Date of Service: 08/03/25 Chief Complaint: SOB Subjective: No new changes Review of Systems 10-point ROS is otherwise unremarkable Physical Examination - Vital Signs Temperature: 98.2 F Blood Pressure: 91/62 Pulse: 96 Respirations: 23 Pulse Ox (%): 90 - Physical Exam General: Alert, In no apparent distress HEENT: Atraumatic, PERRLA, EOMI Neck: Supple, JVD not distended Respiratory: Clear to auscultation bilaterally, Normal air movement Cardiovascular: Regular rate/rhythm, Normal S1 S2 Gastrointestinal: Normal bowel sounds, No tenderness Musculoskeletal: No tenderness Integumentary: No rashes Neurological: Normal speech, Normal tone, Normal affect Lymphatics: No axilla or inguinal lymphadenopathy - Studies Medications List Reviewed: Yes Assessment And Plan - Current Problems (Diagnosis) (1) Acute on chronic combined systolic and diastolic heart failure Current Visit: No Status: Acute Plan: patient with end stage HF, cardiac cachexia, on palliative milrinone, presented with CHF exacerbation continue lasix drip at 7.5 mg/hr monitor input and out and electrolytes (2) CKD stage 2 due to type 2 diabetes mellitus Current Visit: No Status: Chronic Plan: continue to monitor kidney function (3) HTN (hypertension) Current Visit: No Status: Chronic Plan: BP is soft, continue to monitor Qualifiers: Hypertension type: primary hypertension (4) NSVT (nonsustained ventricular tachycardia) Current Visit: Yes Status: Acute Plan: continue Mexiletine 150 mg PO TID Replace K for level more than 4 and Mg for level more than 2 if keep recurring, will consider Amiodarone bolus and drip.
[2025-08-03] MEDS: Magnesium Sulfate 2gm IVPB 2 G/50 ML BAG IV ONE (10:24)
[2025-08-03] MEDS: ALBUMIN HUMAN 25% 12.5 GM, FUROSEMIDE 100 MG in NA CHLORIDE 0.9% 40 ML IV SCH (11:35)
--- NOTE | 2025-08-03 12:29 | P.PN ---
Subjective Date of Service: 08/03/25 Chief Complaint: SOB Patient reports progressive improvement in his shortness of breath. Blood pressure readings are soft. Oxygen weaned down to 2 L by nasal cannula. Good urine output with Lasix plus albumin drip. Physical Examination - Vital Signs Temperature: 98.2 F Blood Pressure: 94/72 Pulse: 90 Respirations: 17 Pulse Ox (%): 93 - Studies Medications List Reviewed: Yes Assessment And Plan - Plan Physical examination General: Alert and oriented x 3, NAD, cachectic. Neck: No elevated JVD Heart: Heart sounds 1 and 2 normal, regular rhythm, normal rate, trace pedal edema Lungs: Right basilar crackles-improving, adequate breath sounds bilaterally, no rhonchi. Abdomen: Soft, nondistended, nontender, normal bowel sounds. Extremities: No tenderness, no deformity Skin: Normal skin turgor, no rash, no nodules or ulcers. Neuro: No focal motor deficit. Normal speech. Psychiatry: No agitation. Diagnosis Acute hypoxic respiratory failure Acute pulmonary edema Acute on chronic systolic heart failure Acute on chronic kidney disease stage II Hyponatremia-resolved Diabetes mellitus type 2 Acute urinary retention Severe protein calorie nutrition Plan Acute hypoxic respiratory failure Acute pulmonary edema Acute on chronic systolic heart failure Respiratory condition improved Patient weaned off BiPAP to oxygen by nasal cannula Cardiology consult appreciated Continue Lasix drip Continue milrinone drip Green[place] catheter for strict input and output monitoring Bronchodilators as needed Oxygen supplementation Acute kidney injury on CKD stage II Hyponatremia Hyponatremia resolved. Serum creatinine is improving Continue to monitor renal function and replace electrolytes as needed Diabetes mellitus type [id number] Insulin sliding scale Severe protein calorie malnutrition Nutritional supplementation. 08/01/2025 1. Respiratory status improved with diuresis. Continue Lasix drip with albumin infusion, wean oxygen as tolerated. 2. Serum creatinine is creeping up, albumin added to Lasix drip. Nephrology consult. Monitor and optimize electrolytes. Monitor urine output. 3. Continue amiodarone drip 4. Bronchodilators as needed 5. Wean oxygen as tolerated 6. Nutritional supplementation. I recommended frequent high-calorie diet with protein supplements. 7. PT consult for generalized weakness. Patient states he was able to transfer independently from bed to wheelchair prior to presentation. 08/02/2025 1. Urine output improved with diuresis with Lasix drip plus albumin infusion. Renal function stabilized with the current Lasix infusion. Continue current dose Lasix infusion with albumin drip. 2. Renal function stabilized. Nephrology input appreciated. Lasix drip dose increased to 7.5 mg/h. Patient received a dose of metolazone today with significant improvement in urine output and improvement in serum creatinine. Nephrology to follow. 3. Continue mexiletine and milrinone drip. Cardiology Dr. Johnson is following. 4. Wean oxygen as tolerated. 5. PT consult 08/03/2025 1. Renal function has been stable with diuresis. Good urine output with diuretics. Continue-Lasix drip with albumin infusion. Metolazone as needed. 2. Patient developed nonsustained VT today. Cardiology Dr. Johnson's input appreciated, continue mexiletine. Optimize potassium and magnesium levels. Replace electrolytes as needed 3. Continue to wean oxygen, goal is to wean oxygen off before discharge. 4. Continue PT for generalized weakness, encourage oral intake. DVT prophylaxis: Lovenox. CODE STATUS: Full code
[2025-08-03 13:54] LABS: Magnesium 2.9 mg/dL (1.6-2.4); Potassium 3.5 mEq/L (3.5-5.1)
--- NOTE | 2025-08-03 20:59 | P.PN ---
Date of Service: 08/03/25 Vital Signs Temp Pulse Resp BP Pulse Ox 97.2 F 91 H 14 96/79 93 08/03/25 16:00 08/03/25 19:59 08/03/25 19:59 08/03/25 19:59 08/03/25 19:59 Medications Acetaminophen (Acetaminophen 325 Mg Tablet) 650 mg PO Q4HP PRN PRN Reason: Pain scale 2-4 (Mild) Last Admin: 08/03/25 10:23 Dose: 650 mg Albuterol Sulfate (Albuterol 2.5 Mg/3 Ml Neb Daisy) 2.5 mg NEB [id number] PRN PRN Reason: SHORTNESS OF BREATH Enoxaparin Sodium (Enoxaparin 30 Mg/0.3 Ml) 30 mg SQ DAILY REPLACED BY [facility] Last Admin: 08/03/25 08:47 Dose: 30 mg Milrinone Lactate/Dextrose (Milrinone 20 Mg/100 Ml Ivpb (Premix)) 20 mg in 100 mls @ 0 mls/hr IV PRN PRN; Protocol PRN Reason: HEMODYNAMIC PARAMETERS Last Admin: 08/03/25 18:59 Dose: 100 mls Albumin Human 12.5 gm/Furosemide 100 mg/ Sodium Chloride 100 mls @ 7.5 mls/hr IV Q13H REPLACED BY [facility] Last Admin: 08/03/25 11:35 Dose: 100 mls Ipratropium [place] (Ipratropium Brom 0.5mg/2.5ml) 0.5 mg NEB [id number] PRN PRN Reason: SHORTNESS OF BREATH Last Admin: 08/01/25 19:24 Dose: 0.5 mg Mexiletine HCl (Mexiletine Hcl 150 Mg Cap) 150 mg PO Q8HR REPLACED BY [facility] Last Admin: 08/03/25 16:41 Dose: 150 mg Ondansetron HCl (Ondansetron 4 Mg/2 Ml Vial) 4 mg IV Q6HP PRN PRN Reason: NAUSEA / VOMITING Last Admin: 08/01/25 07:29 Dose: 4 mg Microbiology Results 07/30/25 18:16 Blood - Blood Aerobic Blood Culture - Preliminary No growth in 24 hours. 07/30/25 18:16 Blood - Blood Anaerobic Blood Culture - Preliminary No growth in 24 hours. 07/30/25 18:00 Blood - Blood Aerobic Blood Culture - Preliminary No growth in 24 hours. 07/30/25 18:00 Blood - Blood Anaerobic Blood Culture - Preliminary No growth in 24 hours. Assessment/ Plan: Nephrology Improving dyspnea No chest pain No acute events overnight Weakness and fatigue Vitals, medications, blood work and imaging reviewed in the chart Physical examination General: Alert and oriented x 3, NAD, cachectic. Neck: No elevated JVD Heart: Heart sounds 1 and 2 normal, regular rhythm, normal rate, trace pedal edema Lungs: Right basilar crackles-improving, adequate breath sounds bilaterally, no rhonchi. Abdomen: Soft, nondistended, nontender, normal bowel sounds. Extremities: No tenderness, no deformity Skin: Normal skin turgor, no rash, no nodules or ulcers. Neuro: No focal motor deficit. Normal speech. Psychiatry: No agitation. A/P Stage I TANG likely CRS CKD II with Proteinuria -No NSAIDs -Continue diuresis Hyponatremia -Restolved Hypokalemia -Replete as ordered Hypotension -Levophed prn Systolic CHF, A/C Pulmonary Edema Hypoxic Respiratory Failure, Acute -Continue Lasix gtt -Continue Milrinone gtt -Continue Oxygen supplementation -Bipap prn DM II with CKD -RISS Severe Protein Calorie Malnutrition Sarcopenia -Continue nutritional supplement Acute Urinary Retention -Continue coyle Hospitalist note reviewed Case reviewed with Dr. Malagon Patient care 40min
[2025-08-04 06:31] LABS: Absolute Lymphocytes (CBC) 1.0 K/uL (0.7-4.9); Hematocrit 30.6 % (39.6-49.0); Hemoglobin 10.6 g/dL (13.6-17.9); MCH 32.4 pg (27.0-35.0); MCHC 34.7 g/dL (32.0-36.0); MCV 93.3 fL (80-100); MPV 9.2 fL (7.6-11.3); Nucleated RBC Absolute Count 0.0 (0-0); Nucleated Red Blood Cells % 0.0 % (0-0); RBC Red Blood Cell Count 3.27 M/uL (4.33-5.43); White Blood Count 4.50 thou/uL (4.3-10.9)
[2025-08-04 06:52] LABS: Anion Gap 13.5 mEq/L (5.0-15.0); BUN Blood Urea Nitrogen 80.0 mg/dL (7-18); Glucose Level 106.0 mg/dL (74-106); Potassium 3.5 mEq/L (3.5-5.1)
--- NOTE | 2025-08-04 09:29 | P.PN ---
Date of Service: 08/04/25 Subjective: continues with chest pain overnight occasional NSVT yesterday breathing slowly improving good UOP BP soft Physical Exam: Gen: Alert, Oriented, NAD, cachectic. CV: Regular rate and rhythm, trace pedal edema Pulm: Nonlabored respirations on 2L NC, Right basilar crackles-improving Abdomen: Soft, nontender, nondistended Greenwood placed 07/31 for urinary retention Problem List: Acute hypoxic respiratory failure secondary to acute on Chronic combined systolic/diastolic CHF (10% EF 02/2025) Acute urinary retention NSVT TANG on CKD2 Hyponatremia Severe protein calorie nutrition Hypertension Hyperlipidemia BPH with LUTS Chronic anemia IDDM2 Hx esophageal ulcers (Oct 2024) Hx colon cancer s/p right hemicolectomy and ileostomy reversal Acute hypoxic respiratory failure secondary to acute on Chronic combined sy stolic/diastolic CHF (10% EF 02/2025) Echo from 02/2025: 10% EF, severe global hypokinesis, grade 3 diastolic dysfunction, elevated filling pressure CXR (07/30): moderate CHF vs volume overload Weaned off BiPAP to NC BP soft, dc lasix/albumin drip; transition to PO Continue home milrinone drip Cardiology is following Acute urinary retention Greenwood placed 07/31 for acute urinary retention after bladder scan showed 500mL retained urine continue to monitor NSVT Reportedly developed NSVT yesterday. Continue mexiletine Monitor on telemetry Cardiology is following TANG on CKD2 Hyponatremia Nephrology consulted Continue to monitor renal function, electrolytes on Lasix/albumin drip Severe protein calorie nutrition Encourage supplemental nutrition Hypertension Hyperlipidemia BPH with LUTS Chronic anemia IDDM2 confirm home meds, restart as appropriate Hx esophageal ulcers (Oct 2024) Hx colon cancer s/p right hemicolectomy and ileostomy reversal Continue supportive care. Monitor hgb VTE: Lovenox Code: Full Dispo: Home
--- NOTE | 2025-08-04 11:14 | P.PN ---
Subjective Date of Service: 08/04/25 Chief Complaint: SOB Subjective: No new changes, No C/O voiced, Tolerating diet, Ambulating, Improving Review of Systems 10-point ROS is otherwise unremarkable Physical Examination - Vital Signs Temperature: 97.8 F Blood Pressure: 76/62 Pulse: 91 Respirations: 22 Pulse Ox (%): 94 - Physical Exam General: Alert, In no apparent distress HEENT: Atraumatic, PERRLA, EOMI Neck: Supple, JVD not distended Respiratory: Clear to auscultation bilaterally, Normal air movement Cardiovascular: Regular rate/rhythm, Normal S1 S2 Gastrointestinal: Normal bowel sounds, No tenderness Musculoskeletal: No tenderness Integumentary: No rashes Neurological: Normal speech, Normal tone, Normal affect Lymphatics: No axilla or inguinal lymphadenopathy - Studies Medications List Reviewed: Yes Assessment And Plan - Current Problems (Diagnosis) (1) Acute on chronic combined systolic and diastolic heart failure Current Visit: No Status: Acute Plan: patient with end stage HF, cardiac cachexia, on palliative milrinone, presented with CHF exacerbation switch to Bumex 1 mg po BID monitor input and out and electrolytes (2) CKD stage 2 due to type 2 diabetes mellitus Current Visit: No Status: Chronic Plan: continue to monitor kidney function (3) HTN (hypertension) Current Visit: No Status: Chronic Plan: BP is soft, continue to monitor Qualifiers: Hypertension type: primary hypertension (4) NSVT (nonsustained ventricular tachycardia) Current Visit: Yes Status: Acute Plan: continue Mexiletine 150 mg PO TID Replace K for level more than 4 and Mg for level more than 2 if keep recurring, will consider Amiodarone bolus and drip.
--- NOTE | 2025-08-04 20:35 | P.PN ---
Date of Service: 08/04/25 Vital Signs Temp Pulse Resp BP Pulse Ox 97.0 F 98 H 20 92/76 95 08/04/25 16:00 08/04/25 18:00 08/04/25 18:00 08/04/25 18:00 08/04/25 18:00 Medications Acetaminophen (Acetaminophen 325 Mg Tablet) 650 mg PO Q4HP PRN PRN Reason: Pain scale 2-4 (Mild) Last Admin: 08/04/25 17:16 Dose: 650 mg Albuterol Sulfate (Albuterol 2.5 Mg/3 Ml Neb Daisy) 2.5 mg NEB [id number] PRN PRN Reason: SHORTNESS OF BREATH Enoxaparin Sodium (Enoxaparin 30 Mg/0.3 Ml) 30 mg SQ DAILY [facility] Last Admin: 08/04/25 08:36 Dose: 30 mg Milrinone Lactate/Dextrose (Milrinone 20 Mg/100 Ml Ivpb (Premix)) 20 mg in 100 mls @ 0 mls/hr IV PRN PRN; Protocol PRN Reason: HEMODYNAMIC PARAMETERS Last Admin: 08/03/25 18:59 Dose: 100 mls Ipratropium [place] (Ipratropium Brom 0.5mg/2.5ml) 0.5 mg NEB [id number] PRN PRN Reason: SHORTNESS OF BREATH Last Admin: 08/01/25 19:24 Dose: 0.5 mg Mexiletine HCl (Mexiletine Hcl 150 Mg Cap) 150 mg PO Q8HR RAJAN Last Admin: 08/04/25 16:57 Dose: 150 mg Ondansetron HCl (Ondansetron 4 Mg/2 Ml Vial) 4 mg IV Q6HP PRN PRN Reason: NAUSEA / VOMITING Last Admin: 08/01/25 07:29 Dose: 4 mg Microbiology Results 07/30/25 18:16 Blood - Blood Aerobic Blood Culture - Final No growth in 5 days. 07/30/25 18:16 Blood - Blood Anaerobic Blood Culture - Final No growth in 5 days. 07/30/25 18:00 Blood - Blood Aerobic Blood Culture - Final No growth in 5 days. 07/30/25 18:00 Blood - Blood Anaerobic Blood Culture - Final No growth in 5 days. Assessment/ Plan: Nephrology CHAVARRIA No chest pain No acute events overnight Weakness and fatigue Lightheadedness Vitals, medications, blood work and imaging reviewed in the chart Physical examination General: Alert and oriented x 3, NAD, cachectic. Neck: No elevated JVD Heart: Heart sounds 1 and 2 normal, regular rhythm, normal rate, trace pedal edema Lungs: Right basilar crackles-improving, adequate breath sounds bilaterally, no rhonchi. Abdomen: Soft, nondistended, nontender, normal bowel sounds. Extremities: No tenderness, no deformity Skin: Normal skin turgor, no rash, no nodules or ulcers. Neuro: No focal motor deficit. Normal speech. Psychiatry: No agitation. A/P Stage I TANG likely CRS CKD II with Proteinuria -No NSAIDs -Continue diuresis Hyponatremia -Restolved Hypokalemia -Replete prn Hypotension -Levophed prn Systolic CHF, A/C Pulmonary Edema Hypoxic Respiratory Failure, Acute -Lasix held due to hypotension -Continue Milrinone gtt -Continue Oxygen supplementation -Bipap prn DM II with CKD -RISS Severe Protein Calorie Malnutrition Sarcopenia -Continue nutritional supplement Acute Urinary Retention -Continue coyle Hospitalist note reviewed Case reviewed with hospitalist team Patient care 35min
[2025-08-04] MEDS: ALBUTEROL 2.5 MG/3 ML NEB SOL NEB PRN (22:25)
[2025-08-05 05:12] LABS: Hematocrit 30.9 % (39.6-49.0); Hemoglobin 10.6 g/dL (13.6-17.9); MCH 31.9 pg (27.0-35.0); MCHC 34.5 g/dL (32.0-36.0); MCV 92.4 fL (80-100); MPV 8.9 fL (7.6-11.3); RBC Red Blood Cell Count 3.34 M/uL (4.33-5.43); White Blood Count 5.10 thou/uL (4.3-10.9)
[2025-08-05 05:32] LABS: Albumin 3.1 g/dL (3.4-5.0); Albumin/Globulin Ratio 1.0 (1.1-1.8); Alkaline Phosphatase 141 U/L (45-117); Anion Gap 12.9 mEq/L (5.0-15.0); BUN Blood Urea Nitrogen 77 mg/dL (7-18); Globulin 3.2 g/dL (2.3-3.5); Glucose Level 96 mg/dL (74-106); Magnesium 2.4 mg/dL (1.6-2.4); Potassium 2.9 mEq/L (3.5-5.1)
[2025-08-05 05:36] LABS: ALT/SGPT < 14 U/L (16-61); AST/SGOT < 10 U/L (15-37)
[2025-08-05] MEDS: KCL 20 MEQ/100 mL IVPB 20 MEQ/100 ML BAG IV SCH (08:26)
--- NOTE | 2025-08-05 08:35 | P.PN ---
Date of Service: 08/05/25 Subjective: felt more lightheaded yesterday afternoon/overnight BP low but always runs low reports some nausea/dry heaving this morning minimal appetite Physical Exam: Gen: Alert, Oriented, cachectic. CV: Regular rate and rhythm, trace pedal edema Pulm: Nonlabored respirations on 2L NC, Right basilar crackles-improving Abdomen: Soft, nontender, nondistended Greenwood placed 07/31 for urinary retention Problem List: Acute hypoxic respiratory failure secondary to acute on chronic combined systolic/diastolic CHF (10% EF 02/2025) Acute urinary retention NSVT TANG on CKD2 Hyponatremia Hypokalemia Severe protein calorie nutrition Hypertension Hyperlipidemia BPH with LUTS Chronic anemia IDDM2 Hx esophageal ulcers (Oct 2024) Hx colon cancer s/p right hemicolectomy and ileostomy reversal Acute hypoxic respiratory failure secondary to acute on chronic combined systolic/diastolic CHF (10% EF 02/2025) Echo from 02/2025: 10% EF, severe global hypokinesis, grade 3 diastolic dysfunction, elevated filling pressure CXR (07/30): moderate CHF vs volume overload Weaned off BiPAP to NC Lasix/albumin drip dc'd 08/04; will restart PO bumex Continue home milrinone drip Cardiology is following Acute urinary retention Greenwood placed 07/31 for acute urinary retention after bladder scan showed 500mL retained urine continue to monitor NSVT Reportedly developed NSVT yesterday. Continue mexiletine Monitor on telemetry replete lytes Cardiology is following TANG on CKD2 Hyponatremia Hypokalemia Nephrology consulted Continue to monitor renal function, electrolytes Lasix/albumin drip dc'd 08/04 Severe protein calorie nutrition Encourage supplemental nutrition Hypertension Hyperlipidemia BPH with LUTS Chronic anemia IDDM2 confirm home meds, restart as appropriate Hx esophageal ulcers (Oct 2024) Hx colon cancer s/p right hemicolectomy and ileostomy reversal Continue supportive care. Monitor hgb VTE: Lovenox Code: Full Dispo: Home, ~2-3 days
--- NOTE | 2025-08-05 12:29 | P.PN ---
Subjective Date of Service: 08/05/25 Chief Complaint: SOB Subjective: No new changes Review of Systems 10-point ROS is otherwise unremarkable Physical Examination - Vital Signs Temperature: 97.6 F Blood Pressure: 98/79 Pulse: 97 Respirations: 18 Pulse Ox (%): 97 - Physical Exam General: Alert, In no apparent distress HEENT: Atraumatic, PERRLA, EOMI Neck: Supple, JVD not distended Respiratory: Clear to auscultation bilaterally, Normal air movement Cardiovascular: Regular rate/rhythm, Normal S1 S2 Gastrointestinal: Normal bowel sounds, No tenderness Musculoskeletal: No tenderness Integumentary: No rashes Neurological: Normal speech, Normal tone, Normal affect Lymphatics: No axilla or inguinal lymphadenopathy - Studies Microbiology Data (last 24 hrs): 07/30/25 18:16 Blood - Blood Aerobic Blood Culture - Final No growth in 5 days. 07/30/25 18:16 Blood - Blood Anaerobic Blood Culture - Final No growth in 5 days. 07/30/25 18:00 Blood - Blood Aerobic Blood Culture - Final No growth in 5 days. 07/30/25 18:00 Blood - Blood Anaerobic Blood Culture - Final No growth in 5 days. Medications List Reviewed: Yes Assessment And Plan - Current Problems (Diagnosis) (1) Acute on chronic combined systolic and diastolic heart failure Current Visit: No Status: Acute Plan: patient with end stage HF, cardiac cachexia, on palliative milrinone, presented with CHF exacerbation switch to Bumex 1 mg po daily monitor input and out and electrolytes (2) CKD stage 2 due to type 2 diabetes mellitus Current Visit: No Status: Chronic Plan: continue to monitor kidney function (3) HTN (hypertension) Current Visit: No Status: Chronic Plan: BP is soft, continue to monitor Qualifiers: Hypertension type: primary hypertension (4) NSVT (nonsustained ventricular tachycardia) Current Visit: Yes Status: Acute Plan: continue Mexiletine 150 mg PO TID Replace K for level more than 4 and Mg for level more than 2 if keep recurring, will consider Amiodarone bolus and drip.
[2025-08-05] MEDS: ALBUMIN HUMAN 25% 50 ML IV ONE (16:05)
--- NOTE | 2025-08-05 18:26 | RAD REPORT ---
EXAM: Chest Single View HISTORY: 54 years Male SOB COMPARISON: 07/30/2025 FINDINGS: LUNGS/PLEURA: Similar widespread bilateral residual airspace disease. Bilateral pleural effusions. CARDIAC/MEDIASTINUM: Stable enlargement. UPPER ABDOMEN: No significant abnormality. BONES: No acute abnormality. LINES/TUBES/OTHER: Right subclavian approach PICC with tip overlying the SVC. Pacemaker/AICD. IMPRESSION: No significant change in aeration of the lungs with findings likely representing moderate congestive heart failure/fluid overload.
[2025-08-05] MEDS: GLUCERNA SHAKE 237 ML CAN PO SCH (20:54)
--- NOTE | 2025-08-05 21:31 | P.PN ---
Date of Service: 08/05/25 Vital Signs Temp Pulse Resp BP Pulse Ox 97.2 F 104 H 23 H 99/82 97 08/05/25 14:00 08/05/25 20:00 08/05/25 20:00 08/05/25 20:00 08/05/25 20:00 Medications Acetaminophen (Acetaminophen 325 Mg Tablet) 650 mg PO Q4HP PRN PRN Reason: Pain scale 2-4 (Mild) Last Admin: 08/05/25 11:38 Dose: 650 mg Albuterol Sulfate (Albuterol 2.5 Mg/3 Ml Neb Daisy) 2.5 mg NEB [id number] PRN PRN Reason: SHORTNESS OF BREATH Last Admin: 08/04/25 22:25 Dose: 2.5 mg Bumetanide (Bumetanide 1 Mg Tablet) 1 mg PO DAILY [facility] Enoxaparin Sodium (Enoxaparin 30 Mg/0.3 Ml) 30 mg SQ DAILY [facility] Last Admin: 08/05/25 08:25 Dose: 30 mg Enteral Nutritional Formula (Glucerna Shake 237 Ml Can) 237 ml PO BID [facility] Last Admin: 08/05/25 20:54 Dose: Not Given Milrinone Lactate/Dextrose (Milrinone 20 Mg/100 Ml Ivpb (Premix)) 20 mg in 100 mls @ 0 mls/hr IV PRN PRN; Protocol PRN Reason: HEMODYNAMIC PARAMETERS Last Admin: 08/05/25 00:43 Dose: 100 mls Ipratropium [place] (Ipratropium Brom 0.5mg/2.5ml) 0.5 mg NEB [id number] PRN PRN Reason: SHORTNESS OF BREATH Last Admin: 08/04/25 22:25 Dose: 0.5 mg Mexiletine HCl (Mexiletine Hcl 150 Mg Cap) 150 mg PO Q8HR RAJAN Last Admin: 08/05/25 16:05 Dose: 150 mg Ondansetron HCl (Ondansetron 4 Mg/2 Ml Vial) 4 mg IV Q6HP PRN PRN Reason: NAUSEA / VOMITING Last Admin: 08/01/25 07:29 Dose: 4 mg Microbiology Results 07/30/25 18:16 Blood - Blood Aerobic Blood Culture - Final No growth in 5 days. 07/30/25 18:16 Blood - Blood Anaerobic Blood Culture - Final No growth in 5 days. 07/30/25 18:00 Blood - Blood Aerobic Blood Culture - Final No growth in 5 days. 07/30/25 18:00 Blood - Blood Anaerobic Blood Culture - Final No growth in 5 days. Assessment/ Plan: Nephrology CHAVARRIA No chest pain No acute events overnight Weakness and fatigue Lightheadedness Vitals, medications, blood work and imaging reviewed in the chart Physical examination General: Alert and oriented x 3, NAD, cachectic. Neck: No elevated JVD Heart: Heart sounds 1 and 2 normal, regular rhythm, normal rate, trace pedal edema Lungs: Right basilar crackles-improving, adequate breath sounds bilaterally, no rhonchi. Abdomen: Soft, nondistended, nontender, normal bowel sounds. Extremities: No tenderness, no deformity Skin: Normal skin turgor, no rash, no nodules or ulcers. Neuro: No focal motor deficit. Normal speech. Psychiatry: No agitation. A/P Stage I TANG likely CRS CKD II with Proteinuria -No NSAIDs -Continue diuresis Hyponatremia -Encourage nutrition Hypokalemia -Replete as ordered Hypotension -Levophed prn Systolic CHF, A/C Pulmonary Edema Hypoxic Respiratory Failure, Acute -Lasix held due to hypotension -Continue Milrinone gtt -Continue Oxygen supplementation -Bipap prn DM II with CKD -RISS Severe Protein Calorie Malnutrition Sarcopenia -Continue nutritional supplement Anemia in chronic illness -Monitor H&H Acute Urinary Retention -Continue coyle Hospitalist note reviewed Case reviewed with hospitalist team Patient care 35min
[2025-08-06 07:31] LABS: Albumin 3.3 g/dL (3.4-5.0); Albumin/Globulin Ratio 1.0 (1.1-1.8); Alkaline Phosphatase 146 U/L (45-117); Anion Gap 9.0 mEq/L (5.0-15.0); BUN Blood Urea Nitrogen 77 mg/dL (7-18); Globulin 3.3 g/dL (2.3-3.5); Glucose Level 107 mg/dL (74-106); Magnesium 2.4 mg/dL (1.6-2.4); Potassium 4.0 mEq/L (3.5-5.1)
[2025-08-06 07:32] LABS: ALT/SGPT < 14 U/L (16-61); AST/SGOT < 10 U/L (15-37)
[2025-08-06] MEDS: BUMETANIDE 1 MG TABLET PO SCH (08:50)
--- NOTE | 2025-08-06 08:50 | P.PN ---
Subjective Date of Service: 08/06/25 Chief Complaint: SOB Subjective: No new changes, No C/O voiced, Tolerating diet Review of Systems 10-point ROS is otherwise unremarkable Physical Examination - Vital Signs Temperature: 97.5 F Blood Pressure: 91/76 Pulse: 101 Respirations: 22 Pulse Ox (%): 94 - Physical Exam General: Alert, In no apparent distress HEENT: Atraumatic, PERRLA, EOMI Neck: Supple, JVD not distended Respiratory: Clear to auscultation bilaterally, Normal air movement Cardiovascular: Regular rate/rhythm, Normal S1 S2 Gastrointestinal: Normal bowel sounds, No tenderness Musculoskeletal: No tenderness Integumentary: No rashes Neurological: Normal speech, Normal tone, Normal affect Lymphatics: No axilla or inguinal lymphadenopathy - Studies Medications List Reviewed: Yes Assessment And Plan - Current Problems (Diagnosis) (1) Acute on chronic combined systolic and diastolic heart failure Current Visit: No Status: Acute Plan: patient with end stage HF, cardiac cachexia, on palliative milrinone, presented with CHF exacerbation, diursed well with IV Lasix drip Bumex 1 mg po daily monitor input and out and electrolytes (2) CKD stage 2 due to type 2 diabetes mellitus Current Visit: No Status: Chronic Plan: continue to monitor kidney function (3) HTN (hypertension) Current Visit: No Status: Chronic Plan: BP is soft, continue to monitor Qualifiers: Hypertension type: primary hypertension (4) NSVT (nonsustained ventricular tachycardia) Current Visit: Yes Status: Acute Plan: continue Mexiletine 150 mg PO TID Replace K for level more than 4 and Mg for level more than 2 if keep recurring, will consider Amiodarone bolus and drip.
--- NOTE | 2025-08-06 09:48 | P.PN ---
Date of Service: 08/06/25 Subjective: Feeling some improvement tolerating diet good UOP via coyle BP low, stable Physical Exam: Gen: Alert, Oriented, cachectic. CV: Regular rate and rhythm, trace pedal edema Pulm: Nonlabored respirations on 2L NC, Right basilar crackles-improving Abdomen: Soft, nontender, nondistended Coyle placed 07/31 for urinary retention Problem List: Acute hypoxic respiratory failure secondary to acute on chronic combined systolic/diastolic CHF (10% EF 02/2025) Acute urinary retention NSVT TANG on CKD2 Hyponatremia Hypokalemia Severe protein calorie nutrition Hypertension Hyperlipidemia BPH with LUTS Chronic anemia IDDM2 Hx esophageal ulcers (Oct 2024) Hx colon cancer s/p right hemicolectomy and ileostomy reversal Acute hypoxic respiratory failure secondary to acute on chronic combined systolic/diastolic CHF (10% EF 02/2025) Echo from 02/2025: 10% EF, severe global hypokinesis, grade 3 diastolic dysfunction, elevated filling pressure CXR (07/30): moderate CHF vs volume overload Weaned off BiPAP to NC Lasix/albumin drip dc'd 08/04; Resume PO bumex 1mg Continue home milrinone drip Cardiology is following Acute urinary retention Coyle placed 07/31 for acute urinary retention after bladder scan showed 500mL retained urine continue to monitor NSVT Continue mexiletine Monitor on telemetry replete lytes Cardiology is following TANG on CKD2 Hyponatremia Hypokalemia Nephrology consulted Continue to monitor renal function, electrolytes Resume PO bumex 1mg daily Improving/stable. Severe protein calorie nutrition Encourage supplemental nutrition Hypertension Hyperlipidemia BPH with LUTS Chronic anemia IDDM2 confirm home meds, restart as appropriate Hx esophageal ulcers (Oct 2024) Hx colon cancer s/p right hemicolectomy and ileostomy reversal Continue supportive care. Monitor hgb VTE: Lovenox Code: Full Dispo: quite symptomatic and debilitated. likely would benefit from snf vs ltac on milrinone drip
--- NOTE | 2025-08-06 11:23 | P.PN ---
Date of Service: 08/06/25 Vital Signs Temp Pulse Resp BP Pulse Ox 97.5 F 99 H 94 H 90/72 94 08/06/25 08:50 08/06/25 10:00 08/06/25 10:00 08/06/25 10:00 08/06/25 10:00 Medications Acetaminophen (Acetaminophen 325 Mg Tablet) 650 mg PO Q4HP PRN PRN Reason: Pain scale 2-4 (Mild) Last Admin: 08/06/25 02:11 Dose: 650 mg Albuterol Sulfate (Albuterol 2.5 Mg/3 Ml Neb Daisy) 2.5 mg NEB [id number] PRN PRN Reason: SHORTNESS OF BREATH Last Admin: 08/04/25 22:25 Dose: 2.5 mg Bumetanide (Bumetanide 1 Mg Tablet) 1 mg PO DAILY [facility] Last Admin: 08/06/25 08:50 Dose: 1 mg Enoxaparin Sodium (Enoxaparin 30 Mg/0.3 Ml) 30 mg SQ DAILY [facility] Last Admin: 08/06/25 08:49 Dose: 30 mg Enteral Nutritional Formula (Glucerna Shake 237 Ml Can) 237 ml PO BID [facility] Last Admin: 08/06/25 08:53 Dose: 237 ml Milrinone Lactate/Dextrose (Milrinone 20 Mg/100 Ml Ivpb (Premix)) 20 mg in 100 mls @ 0 mls/hr IV PRN PRN; Protocol PRN Reason: HEMODYNAMIC PARAMETERS Last Admin: 08/06/25 07:23 Dose: 100 mls Ipratropium [place] (Ipratropium Brom 0.5mg/2.5ml) 0.5 mg NEB [id number] PRN PRN Reason: SHORTNESS OF BREATH Last Admin: 08/04/25 22:25 Dose: 0.5 mg Mexiletine HCl (Mexiletine Hcl 150 Mg Cap) 150 mg PO Q8HR RAJAN Last Admin: 08/06/25 00:38 Dose: 150 mg Ondansetron HCl (Ondansetron 4 Mg/2 Ml Vial) 4 mg IV Q6HP PRN PRN Reason: NAUSEA / VOMITING Last Admin: 08/06/25 08:53 Dose: 4 mg Microbiology Results 07/30/25 18:16 Blood - Blood Aerobic Blood Culture - Final No growth in 5 days. 07/30/25 18:16 Blood - Blood Anaerobic Blood Culture - Final No growth in 5 days. 07/30/25 18:00 Blood - Blood Aerobic Blood Culture - Final No growth in 5 days. 07/30/25 18:00 Blood - Blood Anaerobic Blood Culture - Final No growth in 5 days. Assessment/ Plan: Nephrology CHAVARRIA No chest pain No acute events overnight Weakness and fatigue Lightheadedness Vitals, medications, blood work and imaging reviewed in the chart Physical examination General: Alert and oriented x 3, NAD, cachectic. Neck: No elevated JVD Heart: Heart sounds 1 and 2 normal, regular rhythm, normal rate, trace pedal edema Lungs: Right basilar crackles-improving, adequate breath sounds bilaterally, no rhonchi. Abdomen: Soft, nondistended, nontender, normal bowel sounds. Extremities: No tenderness, no deformity Skin: Normal skin turgor, no rash, no nodules or ulcers. Neuro: No focal motor deficit. Normal speech. Psychiatry: No agitation. A/P Stage I TANG likely CRS CKD II with Proteinuria -No NSAIDs -Continue diuresis Hyponatremia -Encourage nutrition -Continue Bumex Hypokalemia -Replete as ordered Hypotension -Levophed prn Systolic CHF, A/C Pulmonary Edema Hypoxic Respiratory Failure, Acute -Continue Milrinone gtt -Continue Oxygen supplementation -Bipap prn -Continue Bumex DM II with CKD -RISS Severe Protein Calorie Malnutrition Sarcopenia -Continue nutritional supplement Anemia in chronic illness -Monitor H&H Acute Urinary Retention -Continue coyle Hospitalist and Cardiology notes reviewed Case reviewed with hospitalist team Patient care 35min
[2025-08-07 05:35] LABS: Hematocrit 32.2 % (39.6-49.0); Hemoglobin 11.1 g/dL (13.6-17.9); MCH 32.1 pg (27.0-35.0); MCHC 34.5 g/dL (32.0-36.0); MCV 93.2 fL (80-100); MPV 9.7 fL (7.6-11.3); RBC Red Blood Cell Count 3.45 M/uL (4.33-5.43); White Blood Count 4.60 thou/uL (4.3-10.9)
[2025-08-07 05:51] LABS: Anion Gap 12.2 mEq/L (5.0-15.0); BUN Blood Urea Nitrogen 76.0 mg/dL (7-18); Glucose Level 122.0 mg/dL (74-106); Magnesium 2.3 mg/dL (1.6-2.4); Potassium 4.2 mEq/L (3.5-5.1)
--- NOTE | 2025-08-07 08:19 | P.PN ---
Date of Service: 08/07/25 Subjective: feeling better compared to last few days Worked with PT yesterday. Sat up and did some side-steps. Denies worsening dizziness/lightheadedness with PT feels slightly easier to take a deep breath prefers to go home if appropriate - discussed possibly hospice/palliative. would like more info Physical Exam: Gen: Alert, Oriented, cachectic. CV: Regular rate and rhythm, trace pedal edema Pulm: Nonlabored respirations on 2L NC, Right basilar crackles-improving Abdomen: Soft, nontender, nondistended Greenwood placed 07/31 for urinary retention Problem List: Acute hypoxic respiratory failure secondary to acute on chronic combined systolic/diastolic CHF (10% EF 02/2025) Acute urinary retention NSVT TANG on CKD2, resolved; ~baseline Hypokalemia, resolved Hyponatremia Severe protein calorie nutrition Hypertension Hyperlipidemia BPH with LUTS Chronic anemia IDDM2 Hx esophageal ulcers (Oct 2024) Hx colon cancer s/p right hemicolectomy and ileostomy reversal Acute hypoxic respiratory failure secondary to acute on chronic combined systolic/diastolic CHF (10% EF 02/2025) Echo from 02/2025: 10% EF, severe global hypokinesis, grade 3 diastolic dysfunction, elevated filling pressure CXR (07/30): moderate CHF vs volume overload Weaned off BiPAP to NC Lasix/albumin drip dc'd 08/04; Resume PO bumex 1mg Continue home milrinone drip Cardiology is following continue PT. Still symptomatic and debilitated. Would benefit from SNF/LTAC. Discussed goals of care with patient. Reports previously discussing hospice with family in the past but no decision had been made as they didn't feel ready. Will discuss further planning with patient/family and case management 08/07 - discussed further regarding hospice/palliative. pt states not a candidate for LVAD or anything further. only palliative milrinone quality of life has been going down. understands this is progressive but hadn't wanted to think about it now getting more open to the idea, wanting more information of what services are available with hospice vs palliative ss/cm consulted for more info regarding hospice Acute urinary retention Greenwood placed 07/31 for acute urinary retention after bladder scan showed 500mL retained urine Monitor UOP NSVT Continue mexiletine Monitor on telemetry replete lytes Cardiology is following no further episodes noted. TANG on CKD2, resolved; ~baseline Hypokalemia, resolved Hyponatremia Nephrology consulted Continue to monitor renal function, electrolytes Resume PO bumex 1mg daily Severe protein calorie nutrition Encourage supplemental nutrition Hypertension Hyperlipidemia BPH with LUTS Chronic anemia IDDM2 confirm home meds, restart as appropriate Hx esophageal ulcers (Oct 2024) Hx colon cancer s/p right hemicolectomy and ileostomy reversal Continue supportive care. Monitor hgb VTE: Lovenox Code: Full Dispo: quite symptomatic and debilitated. likely would benefit from SNF vs LTAC vs possible hospice on milrinone drip
--- NOTE | 2025-08-07 11:42 | P.PN ---
Nephrology note (S) Pt remains in the ICU, on Milrinone gtt, on O2, no acute resp distress, renal function tests discussed, briefly OOB with assistance he reports (O) Vitals reviewed in the EMR General: Thin, frail, cachectic chronically ill appearing HEENT: Atraumatic, sclera anicteric, not on O2 Neck: Supple Respiratory: Poor resp effort, reduced BS at bases Cardiovascular: Mild tachy, mostly regular, upper left chest cardiac device Gastrointestinal: No guarding, NT Musculoskeletal: Muscle mass loss, 1+ distal edema Integumentary: No rashes Neurological: Normal speech, awake, alert Blood work & imaging reviewed in the chart. Conclusions/Impression: Sub-acute Stage 1 TANG, recurrent in the recent past with increase in Cr levels over the past many mo c/w prior baseline range likely reflecting Type 1/2 CRS physiology, other -Monitor renal function tests closely Mod azotemia in the setting of above, other -Trend closely Hyponatremia, mild, chronic, multifactorial -Limit free water intake to < 1000 cc/day Severe CMP unspecified. Systolic Diastolic CHF, A/C Pulmonary edema, chronic. Peripheral edema -Per Cardiology, management of Milrinone per them -On PO Bumex per Cardiology -Poor prognosis, cont goals of care discussions
[2025-08-08 05:33] LABS: Absolute Lymphocytes (CBC) 0.9 K/uL (0.7-4.9); Hematocrit 32.0 % (39.6-49.0); Hemoglobin 11.0 g/dL (13.6-17.9); MCH 31.9 pg (27.0-35.0); MCHC 34.5 g/dL (32.0-36.0); MCV 92.3 fL (80-100); MPV 9.3 fL (7.6-11.3); Nucleated RBC Absolute Count 0.0 (0-0); Nucleated Red Blood Cells % 0.1 % (0-0); RBC Red Blood Cell Count 3.46 M/uL (4.33-5.43); White Blood Count 3.80 thou/uL (4.3-10.9)
[2025-08-08 05:46] LABS: Anion Gap 11.0 mEq/L (5.0-15.0); BUN Blood Urea Nitrogen 72.0 mg/dL (7-18); Glucose Level 91.0 mg/dL (74-106); Magnesium 2.3 mg/dL (1.6-2.4); Potassium 4.0 mEq/L (3.5-5.1)
--- NOTE | 2025-08-08 07:52 | P.PN ---
Date of Service: 08/08/25 Subjective: feeling slightly better. Breathing feels easier sat up at edge of bed and did some side-steps yesterday with PT still with minimal appetite good UOP via coyle Physical Exam: Gen: Alert, Oriented, cachectic. CV: Regular rate and rhythm, trace pedal edema Pulm: Nonlabored respirations on 2L NC, Lungs sounds more clear Abdomen: Soft, nontender, nondistended Coyle placed / for urinary retention Problem List: Acute hypoxic respiratory failure secondary to acute on chronic combined systolic/diastolic CHF (10% EF 02/2025) Acute urinary retention NSVT TANG on CKD2, resolved; ~baseline Hypokalemia, resolved Hyponatremia Severe protein calorie nutrition Hypertension Hyperlipidemia BPH with LUTS Chronic anemia IDDM2 Hx esophageal ulcers (Oct 2024) Hx colon cancer s/p right hemicolectomy and ileostomy reversal Acute hypoxic respiratory failure secondary to acute on chronic combined systolic/diastolic CHF (10% EF 02/2025) Echo from 02/2025: 10% EF, severe global hypokinesis, grade 3 diastolic dysfunction, elevated filling pressure CXR (07/30): moderate CHF vs volume overload Weaned off BiPAP to NC Lasix/albumin drip dc'd 08/04; Resume PO bumex 1mg Continue home milrinone drip Cardiology is following continue PT. Still symptomatic and debilitated. Would benefit from SNF/LTAC. Discussed goals of care with patient. Reports previously discussing hospice with family in the past but no decision had been made as they didn't feel ready. Will discuss further planning with patient/family and case management 08/07 - discussed further regarding hospice/palliative. pt states not a candidate for LVAD or anything further. only palliative milrinone quality of life has been going down. understands this is progressive but hadn't wanted to think about it now getting more open to the idea, wanting more information of what services are available with hospice vs palliative ss/cm consulted for more info regarding hospice Continue current plan of treatment. Patient/family not wanting hospice at this time as of yesterday evening. Acute urinary retention Coyle placed 10/3 for acute urinary retention after bladder scan showed 500mL retained urine Monitor UOP NSVT Continue mexiletine Monitor on telemetry replete lytes Cardiology is following no further episodes noted. TANG on CKD2, resolved; ~baseline Hypokalemia, resolved Hyponatremia Nephrology consulted Continue to monitor renal function, electrolytes Resume PO bumex 1mg daily Cr stable/improving. Severe protein calorie nutrition Encourage supplemental nutrition Hypertension Hyperlipidemia BPH with LUTS Chronic anemia IDDM2 continue home meds Hx esophageal ulcers (Oct 2024) Hx colon cancer s/p right hemicolectomy and ileostomy reversal Continue supportive care. Monitor hgb VTE: Lovenox Code: Full Dispo: quite symptomatic and debilitated. likely would benefit from SNF vs LTAC on milrinone drip
[2025-08-08] MEDS: ALBUMIN HUMAN 25% 100 ML IV ONE (22:25)
[2025-08-09 05:36] LABS: Absolute Lymphocytes (CBC) 1.0 K/uL (0.7-4.9); Hematocrit 32.4 % (39.6-49.0); Hemoglobin 10.9 g/dL (13.6-17.9); MCH 31.4 pg (27.0-35.0); MCHC 33.6 g/dL (32.0-36.0); MCV 93.6 fL (80-100); MPV 9.6 fL (7.6-11.3); Nucleated RBC Absolute Count 0.0 (0-0); Nucleated Red Blood Cells % 0.1 % (0-0); RBC Red Blood Cell Count 3.47 M/uL (4.33-5.43); White Blood Count 4.40 thou/uL (4.3-10.9)
[2025-08-09 05:51] LABS: Anion Gap 10.0 mEq/L (5.0-15.0); BUN Blood Urea Nitrogen 75.0 mg/dL (7-18); Glucose Level 132.0 mg/dL (74-106); Magnesium 2.3 mg/dL (1.6-2.4); Potassium 4.0 mEq/L (3.5-5.1)
--- NOTE | 2025-08-09 08:34 | P.PN ---
Date of Service: 08/09/25 Subjective: had rough night. Reports increased trouble breathing Low BP overnight, improved after albumin UOP decreasing since off lasix drip appetite starting to return Denies trouble swallowing Physical Exam: Gen: Alert, Oriented, cachectic. CV: Regular rate and rhythm, trace pedal edema Pulm: Nonlabored respirations on 2L NC, mild crackles Abdomen: Soft, nontender, nondistended Greenwood placed 07/31 for urinary retention Problem List: Acute hypoxic respiratory failure secondary to acute on chronic combined systolic/diastolic CHF (10% EF 02/2025) Acute urinary retention NSVT TANG on CKD2, resolved; ~baseline Hypokalemia, resolved Hyponatremia Severe protein calorie nutrition Hypertension Hyperlipidemia BPH with LUTS Chronic anemia IDDM2 Hx esophageal ulcers (Oct 2024) Hx colon cancer s/p right hemicolectomy and ileostomy reversal Acute hypoxic respiratory failure secondary to acute on chronic combined systolic/diastolic CHF (10% EF 02/2025) Echo from 02/2025: 10% EF, severe global hypokinesis, grade 3 diastolic dysfunction, elevated filling pressure continue PT. Still symptomatic and debilitated. Would benefit from SNF/LTAC. Discussed goals of care with patient. Reports previously discussing hospice with family in the past but no decision had been made as they didn't feel ready. Continue current plan of treatment. Patient/family not wanting hospice at this time as of yesterday evening. Cardiology is following Continue home milrinone drip CXR 08/05 showed no significant change compared to CXR on admission Lasix/albumin drip dc'd 08/04; continue PO bumex 1mg Given IV albumin last night due to low BP. Monitor BP closely Acute urinary retention Greenwood placed 07/31 for acute urinary retention after bladder scan showed 500mL retained urine Monitor UOP - decreased UOP since switching off lasix drip NSVT Continue mexiletine Monitor on telemetry replete lytes Cardiology is following no further episodes noted. TANG on CKD2, resolved; ~baseline Hypokalemia, resolved Hyponatremia Nephrology consulted Continue to monitor renal function, electrolytes continue PO bumex 1mg daily Cr stable/improving. Severe protein calorie nutrition Encourage supplemental nutrition Hypertension Hyperlipidemia BPH with LUTS Chronic anemia IDDM2 continue home meds Hx esophageal ulcers (Oct 2024) Hx colon cancer s/p right hemicolectomy and ileostomy reversal Continue supportive care. Monitor hgb VTE: Lovenox Code: Full Dispo: quite symptomatic and debilitated. poor prognosis discussed goals of care with patient and mother. patient states will discuss code status with mother. currently full code discussed with mother - wanting home health, considering palliative care patient similar - considering palliative care
[2025-08-09] MEDS: BUMETANIDE 1 MG TABLET PO SCH (18:43)
[2025-08-10 07:23] LABS: Albumin 3.2 g/dL (3.4-5.0); Anion Gap 9.5 mEq/L (5.0-15.0); BUN Blood Urea Nitrogen 74.0 mg/dL (7-18); Glucose Level 102.0 mg/dL (74-106); Magnesium 2.0 mg/dL (1.6-2.4); Potassium 3.5 mEq/L (3.5-5.1)
--- NOTE | 2025-08-10 08:07 | P.PN ---
Date of Service: 08/10/25 Subjective: feeling better today able to get some rest overnight BP stable, no fever no issues overnight looking into palliative care Physical Exam: Gen: Alert, Oriented, cachectic. CV: Regular rate and rhythm, trace pedal edema Pulm: Nonlabored respirations on 2L NC, mild crackles Abdomen: Soft, nontender, nondistended Greenwood placed 07/31 for urinary retention Problem List: Acute hypoxic respiratory failure secondary to acute on chronic combined s ystolic/diastolic CHF (10% EF 02/2025) Acute urinary retention NSVT TANG on CKD2, resolved; ~baseline Hypokalemia, resolved Hyponatremia Severe protein calorie nutrition Hypertension Hyperlipidemia BPH with LUTS Chronic anemia IDDM2 Hx esophageal ulcers (Oct 2024) Hx colon cancer s/p right hemicolectomy and ileostomy reversal Acute hypoxic respiratory failure secondary to acute on chronic combined systolic/diastolic CHF (10% EF 02/2025) Echo from 02/2025: 10% EF, severe global hypokinesis, grade 3 diastolic dysfunction, elevated filling pressure continue PT. Still symptomatic and debilitated. Discussed goals of care with patient. Reports previously discussing hospice with family in the past but no decision had been made as they didn't feel ready. Continue current plan of treatment. Patient/family not wanting hospice at this time as of yesterday evening. Both patient and mother in agreement with palliative care. ss/cm consulted for further assistance. Cardiology is following Continue home milrinone drip Lasix/albumin drip dc'd 08/04 continue PO bumex 1mg BID; increased to 1mg BID 08/09 CXR 08/05 showed no significant change compared to CXR on admission repeat CXR today Acute urinary retention Greenwood placed 07/31 for acute urinary retention after bladder scan showed 500mL retained urine Monitor UOP NSVT Continue mexiletine Monitor on telemetry replete lytes Cardiology is following no further episodes noted. TANG on CKD2, resolved; ~baseline Hypokalemia, resolved Hyponatremia Nephrology consulted Continue to monitor renal function, electrolytes continue PO bumex 1mg BID Cr stable/improving. Severe protein calorie nutrition Encourage supplemental nutrition Hypertension Hyperlipidemia BPH with LUTS Chronic anemia IDDM2 continue home meds Hx esophageal ulcers (Oct 2024) Hx colon cancer s/p right hemicolectomy and ileostomy reversal Continue supportive care. Monitor hgb VTE: Lovenox Code: Full Dispo: Considering palliative care discussed goals of care with patient and mother. patient states will discuss code status with mother. currently full code Both patient and mother in agreement with palliative care. ss/cm consulted. they will talk to palliative care today, anticipate dc home in next 1-2 days, either on home health vs palliative
[2025-08-10] MEDS: POTASSIUM CL SA 10 MEQ TAB PO ONE (08:39)
--- NOTE | 2025-08-10 09:29 | P.PN ---
Nephrology note (S) Pt remains in the ICU, no events over the weekend, remains on Milrinone gtt, on O2, no acute resp distress, renal function tests discussed, discussed pallative care which pt reports he is leaning towards (O) Vitals reviewed in the EMR General: Thin, frail, cachectic chronically ill appearing HEENT: Atraumatic, sclera anicteric, not on O2 Neck: Supple Respiratory: Poor resp effort, reduced BS at bases Cardiovascular: Mild tachy, mostly regular, upper left chest cardiac device Gastrointestinal: No guarding, NT Musculoskeletal: Muscle mass loss, 1+ distal edema Integumentary: No rashes Neurological: Normal speech, awake, alert Blood work & imaging reviewed in the chart. Conclusions/Impression: Sub-acute Stage 1 TANG, recurrent in the recent past with increase in Cr levels over the past many mo c/w prior baseline range likely reflecting Type 1/2 CRS physiology, other -Monitor renal function tests closely, thus far plateaued, placed on scheduled KCL as K at LLN Mod azotemia in the setting of above, other -Trend closely Hyponatremia, mild, chronic, multifactorial -Limit free water intake to < 1000 cc/day Severe CMP unspecified. Systolic Diastolic CHF, A/C Pulmonary edema, chronic. Peripheral edema -Per Cardiology, management of Milrinone per them -On PO Bumex per Cardiology -Poor prognosis, cont goals of care discussions
--- NOTE | 2025-08-10 10:31 | P.PN ---
Subjective Date of Service: 08/10/25 Chief Complaint: SOB Subjective: No new changes, No C/O voiced Review of Systems 10-point ROS is otherwise unremarkable Physical Examination - Vital Signs Temperature: 98.3 F Blood Pressure: 96/76 Pulse: 97 Respirations: 21 Pulse Ox (%): 98 - Physical Exam General: Alert, In no apparent distress HEENT: Atraumatic, PERRLA, EOMI Neck: Supple, JVD not distended Respiratory: Clear to auscultation bilaterally, Normal air movement Cardiovascular: Regular rate/rhythm, Normal S1 S2 Gastrointestinal: Normal bowel sounds, No tenderness Musculoskeletal: No tenderness Integumentary: No rashes Neurological: Normal speech, Normal tone, Normal affect Lymphatics: No axilla or inguinal lymphadenopathy - Studies Medications List Reviewed: Yes Assessment And Plan - Current Problems (Diagnosis) (1) Acute on chronic combined systolic and diastolic heart failure Current Visit: No Status: Acute Plan: patient with end stage HF, cardiac cachexia, on palliative milrinone as terminal treatment, no option for transplant or LVAD, presented with CHF exacerbation, diursed well with IV Lasix drip Bumex 1 mg po BID monitor input and out and electrolytes Patient is with end stage heart failure, no options to improve his outcome, he was evaluated in medical center before and was placed on palliative milrinone drip, having repeated admission with CHF, primary team and I talked to family about palliative/Hospice care which can help alleviate his symptoms and suffering from multiple hospital admissions, patient and family thinking about it. (2) CKD stage 2 due to type 2 diabetes mellitus Current Visit: No Status: Chronic Plan: continue to monitor kidney function (3) HTN (hypertension) Current Visit: No Status: Chronic Plan: BP is soft, continue to monitor Qualifiers: Hypertension type: primary hypertension (4) NSVT (nonsustained ventricular tachycardia) Current Visit: Yes Status: Acute Plan: continue Mexiletine 150 mg PO TID Replace K for level more than 4 and Mg for level more than 2 if keep recurring, will consider Amiodarone bolus and drip.
--- NOTE | 2025-08-10 11:48 | RAD REPORT ---
EXAMINATION: ONE VIEW CHEST XR CLINICAL INDICATION: Male, 54 years old.,f/u pulm edema/ pleural effusion TECHNIQUE: Frontal chest projection is submitted. Examination is limited by patient positioning and t echnique. COMPARISON: 08/05/2025 FINDINGS: Progressive perihilar hazy opacities and interstitial prominence. Background peripheral opacification and volume loss throughout the right mid to lower lung, stable. There could be small layering pleural effusions, stable. No pneumothorax. Stable cardiomegaly. Left chest wall pacer/AICD in place . Mediastinal contours are unremarkable. IMPRESSION: Progressive perihilar hazy opacities, suggesting worsening pulmonary edema.
[2025-08-11] MEDS: D5W 0 ML IV ONE (01:20)
[2025-08-11 06:21] LABS: Anion Gap 10.9 mEq/L (5.0-15.0); BUN Blood Urea Nitrogen 73.0 mg/dL (7-18); Glucose Level 118.0 mg/dL (74-106); Magnesium 2.1 mg/dL (1.6-2.4); Potassium 3.9 mEq/L (3.5-5.1)
[2025-08-11] MEDS: POTASSIUM CL SA 10 MEQ TAB PO SCH (07:40)
[2025-08-11] MEDS: POTASSIUM CL SA 10 MEQ TAB PO ONE (07:40)
--- NOTE | 2025-08-11 10:41 | P.PN ---
Subjective Date of Service: 08/11/25 Chief Complaint: SOB Subjective: No new changes, No C/O voiced Review of Systems 10-point ROS is otherwise unremarkable Physical Examination - Vital Signs Temperature: 97.8 F Blood Pressure: 86/64 Pulse: 98 Respirations: 19 Pulse Ox (%): 100 - Physical Exam General: Alert, In no apparent distress HEENT: Atraumatic, PERRLA, EOMI Neck: Supple, JVD not distended Respiratory: Clear to auscultation bilaterally, Normal air movement Cardiovascular: Regular rate/rhythm, Normal S1 S2 Gastrointestinal: Normal bowel sounds, No tenderness Musculoskeletal: No tenderness Integumentary: No rashes Neurological: Normal speech, Normal tone, Normal affect Lymphatics: No axilla or inguinal lymphadenopathy - Studies Medications List Reviewed: Yes Assessment And Plan - Current Problems (Diagnosis) (1) Acute on chronic combined systolic and diastolic heart failure Current Visit: No Status: Acute Plan: patient with end stage HF, cardiac cachexia, on palliative milrinone as terminal treatment, no option for transplant or LVAD, presented with CHF exacerbation, diursed well with IV Lasix drip Bumex 1 mg po BID monitor input and out and electrolytes Patient is with end stage heart failure, no options to improve his outcome, he was evaluated in medical center before and was placed on palliative milrinone drip, having repeated admission with CHF, primary team and I talked to family about palliative/Hospice care which can help alleviate his symptoms and suffering from multiple hospital admissions, patient and family thinking about it. (2) CKD stage 2 due to type 2 diabetes mellitus Current Visit: No Status: Chronic Plan: continue to monitor kidney function (3) HTN (hypertension) Current Visit: No Status: Chronic Plan: BP is soft, continue to monitor Qualifiers: Hypertension type: primary hypertension (4) NSVT (nonsustained ventricular tachycardia) Current Visit: Yes Status: Acute Plan: continue Mexiletine 150 mg PO TID Replace K for level more than 4 and Mg for level more than 2 Cardiology will sign off, please call with any questions.
[2025-08-11] MEDS: ALPRAZOLAM 0.25 MG TABLET PO ONE (12:04)
--- NOTE | 2025-08-11 13:56 | P.PN ---
Subjective Date of Service: 08/11/25 Chief Complaint: SOB Patient reports feeling anxious. Patient was seen laying in bed without oxygen and his oxygen saturation was 96% on room air. Blood pressure readings are soft. Physical Examination - Vital Signs Temperature: 98.0 F Blood Pressure: 91/78 Pulse: 104 Respirations: 19 Pulse Ox (%): 92 - Studies Medications List Reviewed: Yes Assessment And Plan - Plan Physical examination General: Alert and oriented x 3, NAD, cachectic. Neck: No elevated JVD Heart: Heart sounds 1 and 2 normal, regular rhythm, normal rate, trace pedal edema Lungs: Right course crackles, adequate breath sounds bilaterally, no rhonchi. Abdomen: Soft, nondistended, nontender, normal bowel sounds. Extremities: No tenderness, no deformity Skin: Normal skin turgor, no rash, no nodules or ulcers. Neuro: No focal motor deficit. Normal speech. Psychiatry: No agitation. Problem List: Acute hypoxic respiratory failure secondary to acute on chronic combined systolic/diastolic CHF (10% EF 02/2025) Acute urinary retention NSVT TANG on CKD2, resolved; ~baseline Hypokalemia, resolved Hyponatremia Severe protein calorie nutrition Hypertension Hyperlipidemia BPH with LUTS Chronic anemia IDDM2 Hx esophageal ulcers (Oct 2024) Hx colon cancer s/p right hemicolectomy and ileostomy reversal Plan Acute hypoxic respiratory failure Acute pulmonary edema Acute on chronic systolic heart failure Respiratory condition improved Patient weaned off BiPAP to oxygen by nasal cannula Cardiology consult appreciated Continue Lasix drip Continue milrinone drip Greenwood catheter for strict input and output monitoring Bronchodilators as needed Oxygen supplementation Acute kidney injury on CKD stage II Hyponatremia Hyponatremia resolved. Serum creatinine is improving Continue to monitor renal function and replace electrolytes as needed Diabetes mellitus type [id number] Insulin sliding scale Severe protein calorie malnutrition Nutritional supplementation. 08/01/2025 1. Respiratory status improved with diuresis. Continue Lasix drip with albumin infusion, wean oxygen as tolerated. 2. Serum creatinine is creeping up, albumin added to Lasix drip. Nephrology consult. Monitor and optimize electrolytes. Monitor urine output. 3. Continue amiodarone drip 4. Bronchodilators as needed 5. Wean oxygen as tolerated 6. Nutritional supplementation. I recommended frequent high-calorie diet with protein supplements. 7. PT consult for generalized weakness. Patient states he was able to transfer independently from bed to wheelchair prior to presentation. 08/02/2025 1. Urine output improved with diuresis with Lasix drip plus albumin infusion. Renal function stabilized with the current Lasix infusion. Continue current dose Lasix infusion with albumin drip. 2. Renal function stabilized. Nephrology input appreciated. Lasix drip dose increased to 7.5 mg/h. Patient received a dose of metolazone today with significant improvement in urine output and improvement in serum creatinine. Nephrology to follow. 3. Continue mexiletine and milrinone drip. Cardiology Dr. Johnson is following. 4. Wean oxygen as tolerated. 5. PT consult 08/03/2025 1. Renal function has been stable with diuresis. Good urine output with diuretics. Continue-Lasix drip with albumin infusion. Metolazone as needed. 2. Patient developed nonsustained VT today. Cardiology Dr. Johnson's input appreciated, continue mexiletine. Optimize potassium and magnesium levels. Re place electrolytes as needed 3. Continue to wean oxygen, goal is to wean oxygen off before discharge. 4. Continue PT for generalized weakness, encourage oral intake. 08/11/2025 1. Respiratory status improved, patient appears compensated for CHF. Lasix drip transition to oral Bumex. Continue current dose of oral Bumex 2. Stable heart rate. Continue Mexiletine 3. Patient is not hypoxic on room air. Functional status improving. Patient was able to stand up with therapy yesterday, at baseline patient transfers to a wheelchair. Continue PT 4. Stable renal function with current dose Bumex. 5. Potassium replacement as needed. 6. Stable hemoglobin, monitor CBC. 7. Patient plan for home with home health with home palliative care. DVT prophylaxis: Lovenox. CODE STATUS: Full code
[2025-08-11] MEDS: MORPHINE 2 MG/ML SYR IV ONE (17:20)
[2025-08-11] MEDS: HYDROMORPHONE HCL 0.5 MG/0.5 ML INJ IV ONE (17:30)
[2025-08-12 05:24] LABS: Absolute Lymphocytes (CBC) 0.8 K/uL (0.7-4.9); Hematocrit 35.2 % (39.6-49.0); Hemoglobin 11.9 g/dL (13.6-17.9); MCH 31.5 pg (27.0-35.0); MCHC 33.9 g/dL (32.0-36.0); MCV 93.1 fL (80-100); MPV 9.6 fL (7.6-11.3); Nucleated RBC Absolute Count 0.0 (0-0); Nucleated Red Blood Cells % 0.1 % (0-0); RBC Red Blood Cell Count 3.78 M/uL (4.33-5.43); White Blood Count 6.20 thou/uL (4.3-10.9)
[2025-08-12 05:41] LABS: Albumin 3.4 g/dL (3.4-5.0); Albumin/Globulin Ratio 1.0 (1.1-1.8); Alkaline Phosphatase 153 U/L (45-117); Anion Gap 10.5 mEq/L (5.0-15.0); BUN Blood Urea Nitrogen 73 mg/dL (7-18); Globulin 3.5 g/dL (2.3-3.5); Glucose Level 122 mg/dL (74-106); Potassium 4.5 mEq/L (3.5-5.1)
[2025-08-12 05:42] LABS: ALT/SGPT < 14 U/L (16-61); AST/SGOT < 10 U/L (15-37)
[2025-08-12] MEDS ORDERED: ALBUTEROL 2.5 MG/3 ML NEB SOL NEB PRN ×2 (09:31→18:02)
[2025-08-12] MEDS: ALPRAZOLAM 0.5 MG TABLET PO PRN (09:44)
--- NOTE | 2025-08-12 18:57 | P.PN ---
Subjective Date of Service: 08/12/25 Chief Complaint: SOB Patient is complaining of anxiety. Nursing staff report patient had some runs of nonsustained VT today. Physical Examination - Vital Signs Temperature: 97.4 F Blood Pressure: 97/75 Pulse: 112 Respirations: 22 Pulse Ox (%): 92 - Studies Medications List Reviewed: Yes Assessment And Plan - Plan Physical examination General: Alert and oriented x 3, NAD. Neck: No elevated JVD Heart: Heart sounds 1 and 2 normal, regular rhythm, tachycardic, no pedal edema Lungs: Right course crackles, adequate breath sounds bilaterally, no rhonchi. Abdomen: Soft, nondistended, nontender, normal bowel sounds. Extremities: No tenderness, no deformity Skin: Normal skin turgor, no rash, no nodules or ulcers. Neuro: No focal motor deficit. Normal speech. Psychiatry: No agitation. Problem List: Acute hypoxic respiratory failure secondary to acute on chronic combined systolic/diastolic CHF (10% EF 02/2025) Acute urinary retention NSVT TANG on CKD2, resolved; ~baseline Hypokalemia, resolved Hyponatremia Severe protein calorie nutrition Hypertension Hyperlipidemia BPH with LUTS Chronic anemia IDDM2 Hx esophageal ulcers (Oct 2024) Hx colon cancer s/p right hemicolectomy and ileostomy reversal Plan Acute hypoxic respiratory failure Acute pulmonary edema Acute on chronic systolic heart failure Respiratory condition improved Patient weaned off BiPAP to oxygen by nasal cannula Cardiology consult appreciated Continue Lasix drip Continue milrinone drip Greenwood catheter for strict input and output monitoring Bronchodilators as needed Oxygen supplementation Acute kidney injury on CKD stage II Hyponatremia Hyponatremia resolved. Serum creatinine is improving Continue to monitor renal function and replace electrolytes as needed Diabetes mellitus type [id number] Insulin sliding scale Severe protein calorie malnutrition Nutritional supplementation. 08/01/2025 1. Respiratory status improved with diuresis. Continue Lasix drip with albumin infusion, wean oxygen as tolerated. 2. Serum creatinine is creeping up, albumin added to Lasix drip. Nephrology consult. Monitor and optimize electrolytes. Monitor urine output. 3. Continue amiodarone drip 4. Bronchodilators as needed 5. Wean oxygen as tolerated 6. Nutritional supplementation. I recommended frequent high-calorie diet with protein supplements. 7. PT consult for generalized weakness. Patient states he was able to transfer independently from bed to wheelchair prior to presentation. 08/02/2025 1. Urine output improved with diuresis with Lasix drip plus albumin infusion. Renal function stabilized with the current Lasix infusion. Continue current dose Lasix infusion with albumin drip. 2. Renal function stabilized. Nephrology input appreciated. Lasix drip dose increased to 7.5 mg/h. Patient received a dose of metolazone today with significant improvement in urine output and improvement in serum creatinine. Nephrology to follow. 3. Continue mexiletine and milrinone drip. Cardiology Dr. Johnson is following. 4. Wean oxygen as tolerated. 5. PT consult 08/03/2025 1. Renal function has been stable with diuresis. Good urine output with diuretics. Continue-Lasix drip with albumin infusion. Metolazone as needed. 2. Patient developed nonsustained VT today. Cardiology Dr. Johnson's input appreciated, continue mexiletine. Optimize potassium and magnesium levels. Replace electrolytes as needed 3. Continue to wean oxygen, goal is to wean oxygen off before discharge. 4. Continue PT for generalized weakness, encourage oral intake. 08/11/2025 1. Respiratory status improved, patient appears compensated for CHF. Lasix drip transition to oral Bumex. Continue current dose of oral Bumex 2. Stable heart rate. Continue Mexiletine 3. Patient is not hypoxic on room air. Functional status improving. Patient was able to stand up with therapy yesterday, at baseline patient transfers to a wheelchair. Continue PT 4. Stable renal function with current dose Bumex. 5. Potassium replacement as needed. 6. Stable hemoglobin, monitor CBC. 7. Patient plan for home with home health with home palliative care. 08/12/2025 1. Runs of nonsustained VT discussed with cardiology recommend to increase mexiletine dose to 200 mg 3 times daily. Mexiletine dose increased as recommended. Continue telemetry 2. Continue milrinone drip 3. Stable renal function on oral Bumex 4. Monitor and replace electrolytes as needed 5. Xanax as needed for anxiety 6. Continue PT. Anticipating discharge to home with home health and palliative care in a.m. DVT prophylaxis: Lovenox. CODE STATUS: Full code
[2025-08-13 04:55] LABS: Absolute Lymphocytes (CBC) 0.8 K/uL (0.7-4.9); Hematocrit 34.1 % (39.6-49.0); Hemoglobin 11.7 g/dL (13.6-17.9); MCH 31.9 pg (27.0-35.0); MCHC 34.3 g/dL (32.0-36.0); MCV 93.1 fL (80-100); MPV 9.5 fL (7.6-11.3); Nucleated RBC Absolute Count 0.0 (0-0); Nucleated Red Blood Cells % 0.2 % (0-0); RBC Red Blood Cell Count 3.66 M/uL (4.33-5.43); White Blood Count 5.10 thou/uL (4.3-10.9)
[2025-08-13 05:08] LABS: Anion Gap 10.6 mEq/L (5.0-15.0); BUN Blood Urea Nitrogen 77.0 mg/dL (7-18); Glucose Level 125.0 mg/dL (74-106); Magnesium 2.0 mg/dL (1.6-2.4); Potassium 4.6 mEq/L (3.5-5.1)
[2025-08-13 06:20] VITALS: BMI 15.5
--- NOTE | 2025-08-13 11:20 | RAD REPORT ---
Procedure: Chest Single View HISTORY: Cough COMPARISON: August 10, 2025 FINDINGS: Mild bilateral pulmonary opacities Small bilateral pleural effusions Cardiomegaly PICC line and pacemaker leads in place. IMPRESSION: Mild CHF
[2025-08-13] MEDS: BUMETANIDE 1 MG/4 ML VIAL IV ONE (13:40)
[2025-08-13] MEDS: MEXILETINE HCL 150 MG CAP PO SCH (17:45)
--- NOTE | 2025-08-13 18:04 | P.PN ---
Subjective Date of Service: 08/13/25 Chief Complaint: SOB Patient states that he is less anxious today. He was desaturating to 85% on room air today. Oral intake is improving. Patient was able to stand up and transfer with therapy today. Physical Examination - Vital Signs Temperature: 98.8 F Blood Pressure: 88/74 Pulse: 112 Respirations: 26 Pulse Ox (%): 99 - Studies Medications List Reviewed: Yes Assessment And Plan - Plan Physical examination General: Alert and oriented x 3, NAD. Heart: Heart sounds 1 and 2 normal, regular rhythm, tachycardic, no pedal edema Lungs: Right course crackles, adequate breath sounds bilaterally, no rhonchi. Abdomen: Soft, nondistended, nontender, normal bowel sounds. Extremities: No tenderness, no deformity Skin: Normal skin turgor, no rash, no nodules or ulcers. Neuro: No focal motor deficit. Normal speech. Psychiatry: No agitation. Problem List: Acute hypoxic respiratory failure secondary to acute on chronic combined systolic/diastolic CHF (10% EF 02/2025) Acute urinary retention NSVT TANG on CKD2, resolved; ~baseline Hypokalemia, resolved Hyponatremia Severe protein calorie nutrition Hypertension Hyperlipidemia BPH with LUTS Chronic anemia IDDM2 Hx esophageal ulcers (Oct 2024) Hx colon cancer s/p right hemicolectomy and ileostomy reversal Plan Acute hypoxic respiratory failure Acute pulmonary edema Acute on chronic systolic heart failure Respiratory condition improved Patient weaned off BiPAP to oxygen by nasal cannula Cardiology consult appreciated Continue Lasix drip Continue milrinone drip Green[place] catheter for strict input and output monitoring Bronchodilators as needed Oxygen supplementation Acute kidney injury on CKD stage II Hyponatremia Hyponatremia resolved. Serum creatinine is improving Continue to monitor renal function and replace electrolytes as needed Diabetes mellitus type [id number] Insulin sliding scale Severe protein calorie malnutrition Nutritional supplementation. 08/01/2025 1. Respiratory status improved with diuresis. Continue Lasix drip with albumin infusion, wean oxygen as tolerated. 2. Serum creatinine is creeping up, albumin added to Lasix drip. Nephrology consult. Monitor and optimize electrolytes. Monitor urine output. 3. Continue amiodarone drip 4. Bronchodilators as needed 5. Wean oxygen as tolerated 6. Nutritional supplementation. I recommended frequent high-calorie diet with protein supplements. 7. PT consult for generalized weakness. Patient states he was able to transfer independently from bed to wheelchair prior to presentation. 08/02/2025 1. Urine output improved with diuresis with Lasix drip plus albumin infusion. Renal function stabilized with the current Lasix infusion. Continue current dose Lasix infusion with albumin drip. 2. Renal function stabilized. Nephrology input appreciated. Lasix drip dose increased to 7.5 mg/h. Patient received a dose of metolazone today with significant improvement in urine output and improvement in serum creatinine. Nephrology to follow. 3. Continue mexiletine and milrinone drip. Cardiology Dr. Johnson is following. 4. Wean oxygen as tolerated. 5. PT consult 08/03/2025 1. Renal function has been stable with diuresis. Good urine output with diuretics. Continue-Lasix drip with albumin infusion. Metolazone as needed. 2. Patient developed nonsustained VT today. Cardiology Dr. Johnson's input appreciated, continue mexiletine. Optimize potassium and magnesium levels. Replace electrolytes as needed 3. Continue to wean oxygen, goal is to wean oxygen off before discharge. 4. Continue PT for generalized weakness, encourage oral intake. 08/11/2025 1. Respiratory status improved, patient appears compensated for CHF. Lasix drip transition to oral Bumex. Continue current dose of oral Bumex 2. Stable heart rate. Continue Mexiletine 3. Patient is not hypoxic on room air. Functional status improving. Patient was able to stand up with therapy yesterday, at baseline patient transfers to a wheelchair. Continue PT 4. Stable renal function with current dose Bumex. 5. Potassium replacement as needed. 6. Stable hemoglobin, monitor CBC. 7. Patient plan for home with home health with home palliative care. 08/12/2025 1. Runs of nonsustained VT discussed with cardiology recommend to increase mexiletine dose to 200 mg 3 times daily. Mexiletine dose increased as recommended. Continue telemetry 2. Continue milrinone drip 3. Stable renal function on oral Bumex 4. Monitor and replace electrolytes as needed 5. Xanax as needed for anxiety 6. Continue PT. Anticipating discharge to home with home health and palliative care in a.m. 08/13/2025 1. Repeat checks x-ray today showed mild CHF. Patient given extra dose of IV Bumex 1 mg. Continue oral Bumex 1 mg twice a day. 2. Continue milrinone. 3. Continue current dose Mexiletine. 4. Xanax as needed for anxiety 5. Arranging for home oxygen 6. Continue PT. DVT prophylaxis: Lovenox. CODE STATUS: Full code Disposition: Home with home health pending refill of patient's home milrinone and home oxygen delivery.
--- NOTE | 2025-08-14 16:41 | P.PN ---
Subjective Date of Service: 08/14/25 Chief Complaint: SOB Patient reports he feels better today He is maintaining oxygen by nasal cannula with good oxygen saturation Oral intake is improving. Physical Examination - Vital Signs Temperature: 97.4 F Blood Pressure: 98/82 Pulse: 105 Respirations: 22 Pulse Ox (%): 95 - Studies Medications List Reviewed: Yes Assessment And Plan - Plan Physical examination General: Alert and oriented x 3, NAD. Heart: Heart sounds 1 and 2 normal, regular rhythm, tachycardic, no pedal edema Lungs: Right course crackles, adequate breath sounds bilaterally, no rhonchi. Abdomen: Soft, nondistended, nontender, normal bowel sounds. Extremities: No tenderness, no deformity Neuro: No focal motor deficit. Normal speech. Psychiatry: No agitation. Problem List: Acute hypoxic respiratory failure secondary to acute on chronic combined systolic/diastolic CHF (10% EF 02/2025) Acute urinary retention NSVT TANG on CKD2, resolved; ~baseline Hypokalemia, resolved Hyponatremia Severe protein calorie nutrition Hypertension Hyperlipidemia BPH with LUTS Chronic anemia IDDM2 Hx esophageal ulcers (Oct 2024) Hx colon cancer s/p right hemicolectomy and ileostomy reversal Plan Acute hypoxic respiratory failure Acute pulmonary edema Acute on chronic systolic heart failure Respiratory condition improved Patient weaned off BiPAP to oxygen by nasal cannula Cardiology consult appreciated Continue Lasix drip Continue milrinone drip Greenwood catheter for strict input and output monitoring Bronchodilators as needed Oxygen supplementation Acute kidney injury on CKD stage II Hyponatremia Hyponatremia resolved. Serum creatinine is improving Continue to monitor renal function and replace electrolytes as needed Diabetes mellitus type [id number] Insulin sliding scale Severe protein calorie malnutrition Nutritional supplementation. 08/01/2025 1. Respiratory status improved with diuresis. Continue Lasix drip with albumin infusion, wean oxygen as tolerated. 2. Serum creatinine is creeping up, albumin added to Lasix drip. Nephrology consult. Monitor and optimize electrolytes. Monitor urine output. 3. Continue amiodarone drip 4. Bronchodilators as needed 5. Wean oxygen as tolerated 6. Nutritional supplementation. I recommended frequent high-calorie diet with protein supplements. 7. PT consult for generalized weakness. Patient states he was able to transfer independently from bed to wheelchair prior to presentation. 08/02/2025 1. Urine output improved with diuresis with Lasix drip plus albumin infusion. Renal function stabilized with the current Lasix infusion. Continue current dose Lasix infusion with albumin drip. 2. Renal function stabilized. Nephrology input appreciated. Lasix drip dose increased to 7.5 mg/h. Patient received a dose of metolazone today with significant improvement in urine output and improvement in serum creatinine. Nephrology to follow. 3. Continue mexiletine and milrinone drip. Cardiology Dr. Johnson is following. 4. Wean oxygen as tolerated. 5. PT consult 08/03/2025 1. Renal function has been stable with diuresis. Good urine output with diuretics. Continue-Lasix drip with albumin infusion. Metolazone as needed. 2. Patient developed nonsustained VT today. Cardiology Dr. Johnson's input appreciated, continue mexiletine. Optimize potassium and magnesium levels. Replace electrolytes as needed 3. Continue to wean oxygen, goal is to wean oxygen off before discharge. 4. Continue PT for generalized weakness, encourage oral intake. 08/11/2025 1. Respiratory status improved, patient appears compensated for CHF. Lasix drip transition to oral Bumex. Continue current dose of oral Bumex 2. Stable heart rate. Continue Mexiletine 3. Patient is not hypoxic on room air. Functional status improving. Patient was able to stand up with therapy yesterday, at baseline patient transfers to a wheelchair. Continue PT 4. Stable renal function with current dose Bumex. 5. Potassium replacement as needed. 6. Stable hemoglobin, monitor CBC. 7. Patient plan for home with home health with home palliative care. 08/12/2025 1. Runs of nonsustained VT discussed with cardiology recommend to increase mexiletine dose to 200 mg 3 times daily. Mexiletine dose increased as rec ommended. Continue telemetry 2. Continue milrinone drip 3. Stable renal function on oral Bumex 4. Monitor and replace electrolytes as needed 5. Xanax as needed for anxiety 6. Continue PT. Anticipating discharge to home with home health and palliative care in a.m. 08/13/2025 1. Repeat checks x-ray today showed mild CHF. Patient given extra dose of IV Bumex 1 mg. Continue oral Bumex 1 mg twice a day. 2. Continue milrinone. 3. Continue current dose Mexiletine. 4. Xanax as needed for anxiety 5. Arranging for home oxygen 6. Continue PT. 08/14/2025 Continue oral Bumex 1 mg twice a day Continue milrinone and Mexiletine. Continue Xanax as needed for anxiety Home oxygen has been arranged and delivered. Medical condition optimized, awaiting patient will refill for home Milrinone by his outpatient special needs bus driver before discharge. Continue PT DVT prophylaxis: Lovenox. CODE STATUS: Full code
[2025-08-15 05:43] LABS: Absolute Lymphocytes (CBC) 0.8 K/uL (0.7-4.9); Hematocrit 36.0 % (39.6-49.0); Hemoglobin 11.8 g/dL (13.6-17.9); MCH 30.8 pg (27.0-35.0); MCHC 32.8 g/dL (32.0-36.0); MCV 93.8 fL (80-100); MPV 10.2 fL (7.6-11.3); Nucleated RBC Absolute Count 0.0 (0-0); Nucleated Red Blood Cells % 0.0 % (0-0); RBC Red Blood Cell Count 3.84 M/uL (4.33-5.43); White Blood Count 5.40 thou/uL (4.3-10.9)
[2025-08-15 05:59] LABS: Anion Gap 9.9 mEq/L (5.0-15.0); BUN Blood Urea Nitrogen 85.0 mg/dL (7-18); Glucose Level 96.0 mg/dL (74-106); Potassium 4.9 mEq/L (3.5-5.1)
[2025-08-15 08:22] VITALS: TEMP 98
--- NOTE | 2025-08-15 08:58 | P.DS ---
Admission Date: 07/30/25 Discharge Date: 08/15/25 Disposition: DC HOME/HOME HEALTH CARE Discharge Condition: FAIR Reason for Admission: SOB Hospital Course: Problem List: Acute hypoxic respiratory failure secondary to acute on chronic combined systolic/diastolic CHF (10% EF 02/2025) Acute urinary retention NSVT TANG on CKD2, resolved; ~baseline Hypokalemia, resolved Hyponatremia Severe protein calorie nutrition Hypertension Hyperlipidemia BPH with LUTS Chronic anemia IDDM2 Hx esophageal ulcers (Oct 2024) Hx colon cancer s/p right hemicolectomy and ileostomy reversal Patient presented with worsening shortness of breath, lower extremity edema secondary to end stage combined systolic/diastolic heart failure. Known EF of 10%. Chest xray on admission was consistent with moderate CHF versus volume overload pattern. Cardiology was consulted. Patient was started on a lasix drip and had some slight improvement in symptoms. Lasix drip was deescalated to oral bumex and he remained stable. On further discussion with patient and family, patient reports that his quality of life has been declining over the last few months with more frequent hospitalizations recently. Patient is on milrinone drip at home. He has also been experiencing intermittent short runs of nonsustained V. tach so his mexiletine dose was increased to 200 mg 3 times daily. Patient also experienced periods of anxiety which was managed with Xanax. He understands that this disease is progressive. They had previously discussed hospice in the past but no decision had been made. Patient has received refills for his milrinone at home. Patient was evaluated by physical therapy for generalized weakness. His functional status improved and patient was able to transfer with assistance. Given his progressive declination, worsening quality of life and extensive list of chronic comorbidities, they have opted to pursue palliative care. Vital Signs/Physical Exam: Temp Pulse Resp BP Pulse Ox 98.0 F 107 H 20 95/75 93 08/15/25 08:00 08/15/25 08:00 08/15/25 08:00 08/15/25 08:00 08/15/25 08:00 General: Alert, In no apparent distress, Oriented x3, Cachectic, Other HEENT: Mucous membr. moist/pink Neck: JVD not distended Respiratory: Other (Mild bibasilar crackles) Cardiovascular: No edema, Normal S1 S2, Other (Tachycardia) Gastrointestinal: Normal bowel sounds, Soft and benign, Non-distended Musculoskeletal: No swelling Integumentary: No cyanosis Neurological: Normal speech, Normal strength at 5/5 x4 extr Laboratory Data at Discharge: WBC 5.40 thou/uL (4.3-10.9) 08/15/25 04:55 Hgb 11.8 g/dL (13.6-17.9) L 08/15/25 04:55 Hct 36.0 % (39.6-49.0) L 08/15/25 04:55 Plt Count 157 thou/uL (152-406) 08/15/25 04:55 PT 14.5 SECONDS (10-13.0) H 07/30/25 18:16 INR 1.29 07/30/25 18:16 APTT 32.5 SECONDS (27.2-37.4) 07/30/25 18:16 Sodium 133 mEq/L (136-145) L 08/15/25 04:55 Potassium 4.9 mEq/L (3.5-5.1) 08/15/25 04:55 BUN 85 mg/dL (7-18) H 08/15/25 04:55 Creatinine 1.78 mg/dL (0.70-1.30) H 08/15/25 04:55 Glucose 96 mg/dL (74-106) 08/15/25 04:55 Phosphorus 3.8 mg/dL (2.5-4.9) 08/13/25 04:30 Magnesium 2.0 mg/dL (1.6-2.4) 08/13/25 04:30 Total Bilirubin 0.6 mg/dL (0.2-1.0) 08/12/25 04:54 AST < 10 U/L (15-37) L 08/12/25 04:54 ALT < 14 U/L (16-61) L 08/12/25 04:54 Alkaline Phosphatase 153 U/L (45-117) H 08/12/25 04:54 Home Medications: Escitalopram Oxalate [Lexapro] 10 mg PO DAILY PRN 01/22/25 Timolol Maleate [Timoptic] 1 gtt OP BEDTIME 01/22/25 Aspirin [Aspirin EC 81 MG] 81 mg PO DAILY 30 Days #30 tab 03/16/25 Magnesium Oxide [Mag 0X*] 400 mg PO DAILY 06/20/25 Mexiletine HCl [Mexitil*] 150 mg PO Q8H 06/20/25 Milrinone Lact/D5w [Milrinone 20 MG/100 ML IVPB (PREMIX)*] 3.7 mcg IV SEECOM 06/20/25 Nystatin Powder [Mycostatin (Powder)*] 1 appl TOP BID 06/20/25 Ondansetron [Zofran (Odt)*] 4 mg PO Q6H PRN 7 Days #28 tab 06/22/25 Calcium Carbonate/Vitamin D3 [Oscal 500 + Vit D 200 Iu Tab*] 1 tab PO BID Famotidine 20 mg PO DAILY 07/15/25 Ferrous Sulfate [Iron] 325 mg PO BID 07/15/25 Atorvastatin Calcium [Lipitor*] 20 mg PO BEDTIME tab 07/19/25 Glucerna Shake [Glucerna*] 237 ml PO BID can 07/19/25 Nicko [Nicko*] 1 pkt PO BID 07/19/25 Bumetanide [Bumex*] 1 mg PO DAILY 08/01/25 ALPRAZolam [Xanax*] 0.5 mg PO TID PRN #30 tab 08/15/25 New Medications: ALPRAZolam [Xanax*] 0.5 mg PO TID PRN #30 tab PRN Reason: Anxiety Physician Discharge Instructions: Physician discharge instructions: Patient presented with worsening shortness of breath, lower extremity edema secondary to end stage combined systolic/diastolic heart failure. Known EF of 10%. Chest xray on admission was consistent with moderate CHF versus volume overload pattern. Cardiology was consulted. Patient was started on a lasix drip and had some slight improvement in symptoms. Lasix drip was deescalated to oral bumex and he remained stable. On further discussion with patient and family, patient reports that his quality of life has been declining over the last few months with more frequent hospitalizations recently. Patient is on milrinone drip at home. He has also been experiencing intermittent short runs of nonsustained V. tach so his mexiletine dose was increased to 200 mg 3 times daily. Patient also experienced periods of anxiety which was managed with Xanax. He understands that this disease is progressive. They had previously discussed hospice in the past but no decision had been made. Patient has received refills for his milrinone at home. Given his progressive declination, worsening quality of life and extensive list of chronic comorbidities, they have opted to pursue palliative care. Followup: Sotero Watson MD [Primary Care Provider] - Time spent managing pt's care (in minutes): 39
[2025-08-15 09:55] VITALS: O2SAT 95
[2025-08-15 10:21] VITALS: BP 81/71
== END 2025-08-15 11:36 | disposition home health service (06) | DRG 291 ==
LOC: ER 17:56 → ERHOLD 22:35 → 3RD-ICU 07-31 01:46
PROVIDERS: ADMIT Family Medicine; ATTEND Internal Medicine
DX: I13.0 Hypertensive heart and chronic kidney disease with heart failure and stage 1 through stage 4 chronic kidney disease, or unspecified chronic kidney disease (principal); E43 Unspecified severe protein-calorie malnutrition; I50.23 Acute on chronic systolic (congestive) heart failure; J96.01 Acute respiratory failure with hypoxia; R64 Cachexia; Z68.1 Body mass index [BMI] 19.9 or less, adult; N17.9 Acute kidney failure, unspecified; E87.1 Hypo-osmolality and hyponatremia; I47.29 Other ventricular tachycardia; N18.2 Chronic kidney disease, stage 2 (mild); E11.22 Type 2 diabetes mellitus with diabetic chronic kidney disease; E11.65 Type 2 diabetes mellitus with hyperglycemia; D63.1 Anemia in chronic kidney disease; E87.6 Hypokalemia; F41.9 Anxiety disorder, unspecified; E78.5 Hyperlipidemia, unspecified; I95.9 Hypotension, unspecified; I25.5 Ischemic cardiomyopathy; N40.1 Benign prostatic hyperplasia with lower urinary tract symptoms; I25.10 Atherosclerotic heart disease of native coronary artery without angina pectoris; I25.2 Old myocardial infarction; R33.9 Retention of urine, unspecified; Z88.5 Allergy status to narcotic agent; Z95.5 Presence of coronary angioplasty implant and graft; Z79.82 Long term (current) use of aspirin; Z90.49 Acquired absence of other specified parts of digestive tract; Z79.899 Other long term (current) drug therapy; Z95.810 Presence of automatic (implantable) cardiac defibrillator; Z85.038 Personal history of other malignant neoplasm of large intestine
CPT/HCPCS: 36415; 36569; 71045; 80048; 80053; 80069; 82947; 83605; 83735; 83880; 84100; 84132; 84484; 85025; 85027; 85610; 85730; 87040; 93005; 94640; 94660; 94760; 96365; 96366; 96375; 97110; 97161; 97530; 99285; J1171; J1650; J1790; J1938; J2260; J2405; J3010; J3475; J3480; J7613; J7644; P9047